=== PATIENT | male | born 1955 | race American Indian/Alaskan Native ===

== ENCOUNTER 2018-03-16 18:22 | Inpatient (IN) | payer MEDICARE, MEDICAID ==
[2018-03-16 18:22] VITALS: BMI 26.6
--- NOTE | 2018-03-16 19:08 | C.PDOC ---
History Of Present Illness Patient seen today due to suicidal ideation for the past 2 days. Also with Hx of COPD , complainin of SOB. Denies any chest pain. Chief Complaint (Nursing): Psychiatric Evaluation History Per: Patient History/Exam Limitations: no limitations Onset/Duration Of Symptoms: Days Current Symptoms Are (Timing): Still Present Suicide/Self Injury Attempted (Context): None Pain Scale Rating Of: 0 Associated Symptoms: Suicidal Thoughts. denies: Anxiety, Agitation, Suicidal Plan Involuntary Hold By: None Recent travel outside of the [place]: No Past Medical History Vital Signs: Last Vital Signs Temp 98.1 F 03/16/18 18:36 Pulse 113 H 03/16/18 18:36 Resp 20 03/16/18 18:36 BP 135/86 03/16/18 18:36 Pulse Ox 95 03/16/18 21:12 - Medical History PMH: Anxiety, Arthritis, Asthma, Back Problems, Bronchitis, COPD, Diabetes (w/ Neuropathy), Emphysema, Hepatitis (C), HIV, HTN, Hypercholesterolemia, Hyperlipidemia, Pancreatitis, Pneumonia, Sleep Apnea Denies: Chronic Kidney Disease - [facility] Procedures ASSISTANCE WITH RESPIRATORY VENTILATION, 24-96 HRS, CPAP (01/02/17) CENTRAL VENOUS CATHETER PLACEMENT WITH GUIDANCE (10/28/14) INFLUENZA VACCINATION (09/05/14) INSERTION OF INFUSION DEV INTO SUP VENA CAVA, PERC APPROACH (09/15/16) INTRODUCE OF OTH THERAP SUBST INTO RESP TRACT, VIA OPENING (01/13/18) INTRODUCTION OF SERUM/TOX/VACCINE INTO MUSCLE, PERC APPROACH (09/15/16) SPINAL TAP (02/05/15) VACCINATION NEC (09/21/14) Family History: States: Unknown Family Hx - Social History Hx Tobacco Use: Yes Hx Alcohol Use: No Hx Substance Use: Yes - Immunization History Hx Tetanus Toxoid Vaccination: No Hx Influenza Vaccination: Yes (2016) Hx Pneumococcal Vaccination: Yes (10/2017) Review Of Systems Constitutional: Negative for: Fever, Chills, Weakness Eyes: Negative for: Pain, Vision Change ENT: Negative for: Ear Pain, Ear Discharge, Nose Pain, Nose Discharge Cardiovascular: Negative for: Chest Pain, Palpitations, Orthopnea, Paroxysmal Noc. Dyspnea, Edema Respiratory: Positive for: Cough, Shortness of Breath, SOB with Excertion. Negative for: Hemoptysis, Pleuritic Pain, Sputum Gastrointestinal: Negative for: Nausea, Vomiting, Abdominal Pain Genitourinary: Negative for: Dysuria, Frequency Musculoskeletal: Negative for: Neck Pain, Shoulder Pain, Arm Pain Skin: Negative for: Rash, Lesions Neurological: Negative for: Weakness, Numbness, Incoordination, Change in Speech , Confusion, Seizures, Altered Mental Status Psych: Positive for: Suicidal ideation. Negative for: Anxiety Physical Exam - Physical Exam Appears: Non-toxic, No Acute Distress Skin: Normal Color, Warm, Dry, No Diaphoretic Head: Atraumatic, Normacephalic, Tenderness Nose: Normal Throat: Normal Neck: Normal Chest: Symmetrical, No Deformity, No Tenderness, No Ecchymosis, No Subcutaneous Emphysema Cardiovascular: Rhythm Regular Respiratory: Rhonchi (bilateral rhoncji, no rales.) Gastrointestinal/Abdominal: Normal Exam Back: Normal Inspection Male Genital: Normal Inspection Neurological/Psych: Normal Speech, Normal Cognition, Other (suicidal ideation.,) ED Course And Treatment - Laboratory Results Result Diagrams: 03/16/18 19:42 03/16/18 20:19 ECG: Interpreted By Me, Viewed By Me ECG Rhythm: Sinus Tachycardia ECG Interpretation: No Acute Changes Interpretation Of ECG: Sinus tachycardia, possible AMBAR, no acute change, borderline tracings. Rate From EC O2 Sat by Pulse Oximetry: 95 Pulse Ox Interpretation: Normal - Radiology CXR: Interpreted by Me, Viewed By Me CXR Interpretation: Yes: No Acute Disease, Other (normal chest film). No: Infiltrates Disposition Discussed With : Rayne Graf Doctor Will See Patient In The: Hospital Counseled Patient/Family Regarding: Diagnosis - Disposition Referrals: Ольга Arellano [Medical Doctor] - Disposition: HOSPITALIZED Disposition Time: 21:18 Condition: STABLE Forms: [facility] (Vietnamese) - POA Present On Arrival: None - Clinical Impression Clinical Impression: Chronic obstructive lung disease, Suicidal ideations
[2018-03-16] MEDS ORDERED: Albuterol-Ipratrop 3 mg / 0.5 (3 ml) UD INH STA (19:14)
[2018-03-16] MEDS ORDERED: Albuterol-Ipratrop 3 mg / 0.5 (3 ml) UD ONE (19:23)
[2018-03-16 19:45] LABS: BASO % 0.1 % (0.0-2.0); EOS % 0.2 % (0.0-4.0); HEMOGLOBIN 11.8 g/dL (12.0-18.0); LYMPH # 0.7 K/uL (1.0-4.3); LYMPH % 4.9 % (20.0-40.0); MEAN CORPUSCULAR HEMOGLOBIN 27.4 pg (27.0-31.0); MEAN CORPUSCULAR HGB CONC 31.3 g/dL (33.0-37.0); MEAN PLATELET VOLUME 7.8 fL (7.2-11.7); MONO # 0.7 K/uL (0.0-0.8); MONO % 4.5 % (0.0-10.0); NEUT # 13.3 K/uL (1.8-7.0); NEUT % 90.3 % (50.0-75.0); NRBC % 0.1 % (0.0-2.0); PLATELET COUNT 281 K/uL (130-400); RBC 4.31 Mil/uL (4.40-5.90); RED CELL DISTRIBUTION WIDTH 16.1 % (11.5-14.5)
[2018-03-16 19:46] LABS: MEAN CELL VOLUME 87.6 fL (80.0-94.0); WHITE BLOOD COUNT 14.7 K/uL (4.8-10.8)
[2018-03-16 20:00] LABS: ALB/GLOB RATIO 1.2 (1.0-2.1); ALBUMIN 4.8 g/dL (3.5-5.0); ALT/SGPT 37 U/L (21-72); AST/SGOT 53 U/L (17-59); BLOOD UREA NITROGEN 22 mg/dL (9-20); GFR AFRICAN-AMERICAN > 60; GFR NON-AFRICAN AMERICAN > 60
[2018-03-16 20:43] LABS: ANISOCYTOSIS SLIGHT; BANDS 1 % (0-2); HYPOCHROMIC SLIGHT; LYMPHOCYTE 9 % (20-40); MONOCYTE 1 % (0-10); NEUTROPHIL 89 % (50-75); OVALOCYTES SLIGHT; PLATELET ESTIMATE NORMAL (NORMAL); POIKILOCYTOSIS SLIGHT; TOTAL CELLS COUNTED 100
[2018-03-16 20:47] LABS: ALB/GLOB RATIO 1.1 (1.0-2.1); ALBUMIN 2.3 g/dL (3.5-5.0); ALT/SGPT 33 U/L (21-72); AST/SGOT 19 U/L (17-59); BLOOD UREA NITROGEN 16 mg/dL (9-20); CALCIUM 6.2 mg/dl (8.6-10.4); GFR AFRICAN-AMERICAN > 60; GFR NON-AFRICAN AMERICAN > 60
[2018-03-16] MEDS ORDERED: Potassium Chloride 20 mEq/15 ml LIQ UD PO STA (20:53)
[2018-03-16] MEDS ORDERED: Potassium Chloride 20 mEq/15 ml LIQ UD ONE (21:07)
[2018-03-16] MEDS ORDERED: Albuterol HFA 90 mcg/actuation (8 g) IH PRN (21:28)
[2018-03-16 22:07] LABS: ABG ALLEN TEST POS; ARTERIAL BLOOD GAS HCO3 27.3 mmol/L (21-28); ARTERIAL BLOOD GAS HEMOGLOBIN 9.8 g/dL (11.7-17.4); ARTERIAL BLOOD GAS PCO2 47 mm/Hg (35-45); ARTERIAL BLOOD GAS PH 7.39 (7.35-7.45); ARTERIAL BLOOD GAS PO2 86 mm/Hg (80-100); ARTERIAL BLOOD GAS TCO2 29.9 mmol/L (22-28)
[2018-03-16] MEDS: MethylPREDNISolone 40 mg Vial IVP SCH (23:00)
[2018-03-16] MEDS: Azithromycin 500mg/250ML NS 500 MG/250 ML BAG IVPB SCH (23:09)
[2018-03-17] MEDS: Albuterol-Ipratrop 3 mg / 0.5 (3 ml) UD INH SCH ×4 (02:45→20:42)
[2018-03-17] MEDS: MethylPREDNISolone 40 mg Vial IVP SCH ×3 (06:04→21:56)
[2018-03-17 06:46] LABS: BASO % 0.1 % (0.0-2.0); HEMOGLOBIN 9.4 g/dL (12.0-18.0); LYMPH # 0.2 K/uL (1.0-4.3); LYMPH % 2.3 % (20.0-40.0); MEAN CORPUSCULAR HEMOGLOBIN 27.8 pg (27.0-31.0); MEAN CORPUSCULAR HGB CONC 31.5 g/dL (33.0-37.0); MEAN PLATELET VOLUME 8.1 fL (7.2-11.7); MONO # 0.2 K/uL (0.0-0.8); MONO % 2.4 % (0.0-10.0); NEUT # 6.8 K/uL (1.8-7.0); NEUT % 95.2 % (50.0-75.0); NRBC % 0.1 % (0.0-2.0); PLATELET COUNT 231 K/uL (130-400); RED CELL DISTRIBUTION WIDTH 16.2 % (11.5-14.5); WHITE BLOOD COUNT 7.2 K/uL (4.8-10.8)
[2018-03-17 08:16] LABS: ALB/GLOB RATIO 1.3 (1.0-2.1); ALBUMIN 3.5 g/dL (3.5-5.0); ALT/SGPT 28 U/L (21-72); AST/SGOT 22 U/L (17-59); BLOOD UREA NITROGEN 25 mg/dL (9-20); CALCIUM 8.7 mg/dl (8.6-10.4); GFR AFRICAN-AMERICAN > 60; GFR NON-AFRICAN AMERICAN > 60
--- NOTE | 2018-03-17 08:27 | RAD ---
Date of service: 03/16/2018 HISTORY: Detox/Psy COMPARISON: 02/11/2016. FINDINGS: LUNGS: The lungs are well inflated. There is linear atelectasis in the left lower lobe. No focal consolidation. PLEURA: No significant pleural effusion identified, no pneumothorax apparent. CARDIOVASCULAR: Normal. OSSEOUS STRUCTURES: No significant abnormalities. VISUALIZED UPPER ABDOMEN: Normal. OTHER FINDINGS: None. IMPRESSION: No active pulmonary disease.
[2018-03-17 09:54] LABS: ANISOCYTOSIS SLIGHT; BANDS 1 % (0-2); HYPOCHROMIC SLIGHT; LYMPHOCYTE 2 % (20-40); MONOCYTE 2 % (0-10); NEUTROPHIL 95 % (50-75); PLATELET ESTIMATE NORMAL (NORMAL); TOTAL CELLS COUNTED 100
[2018-03-17] MEDS ORDERED: Abacavir/Lamivudine 600 mg-300 mg Tab PO SCH (10:00)
[2018-03-17] MEDS ORDERED: Home Med 1 UNIT (Valsartan [Diovan] 1 TAB) PO SCH (10:00)
[2018-03-17] MEDS ORDERED: DEXTROMETHORPHAN PO SCH (10:00)
[2018-03-17] MEDS ORDERED: GUAIFENESIN PO SCH (10:00)
[2018-03-17] MEDS ORDERED: Home Med 1 UNIT (Budesonide/Formoterol Fumarate [Symbicort 160-4.5 Mcg Inhaler] 1 AER) IH SCH (10:00)
[2018-03-17] MEDS ORDERED: RALTEGRAVIR POTASSIUM 600 MG PO SCH (10:00)
[2018-03-17] MEDS: Pantoprazole 40 mg EC Tab PO SCH (10:03)
[2018-03-17] MEDS: Enoxaparin 40 mg Syringe SC SCH (10:51)
[2018-03-17] MEDS ORDERED: (Novolog) Insulin Aspart, Recombinant 100 u/ml 10 ml vial SC SCH ×2 (11:30→22:00)
--- NOTE | 2018-03-17 11:41 | PCM.PSYCH ---
Initial Psychiatric Evaluation - Initial Psychiatric Evaluation Type of Admission: Voluntary Legal Status: Capacity Chief Complaint (in patient's own words): "I am fine" History of Present Illness and Precipitating Events: Patient came with Hx of COPD , complaining of SOB. Denies any chest pain. Psych was consulted due to suicidal ideation for the past 2 days. Patient has a history of anxiety presented to the ED with SOB and suicidal ideation. The patient states that when he came in yesterday he was under a lot of stress because of his health and he had just been discharged from [facility]. He states that he was feeling frustrated and had not slept well for the last few days however he is not depressed. The patient denies any suicidal ideation currently. He states that he has no pscyhiatric conditions except anxiety for which he takes Xanax at home occasionally. Past medical history: HIV, COPD, DM, HTN Past social history: former smoker of 50 years Current Medications: Active Medications Generic Name Dose Route Start Last Admin Trade Name Freq PRN Reason Stop Dose Admin Abacavir Sulfate 300 mg 03/17/18 10:03/17/18 11:10 Ziagen PO Not Given BID LAURA Protocol Abacavir/Lamivudine 1 tab 03/17/18 10:00 03/17/18 10:50 Epzicom PO 1 tab DAILY LAURA Administration Protocol Albuterol 1 puff 03/16/18 21:28 Ventolin Hfa 90 Mcg/Actuation (8 G) IH PRN PRN Shortness of Breath Albuterol/Ipratropium 3 ml 03/17/18 02:00 03/17/18 07:35 Duoneb 3 Mg/0.5 Mg (3 Ml) Ud INH 3 ml RQ6 LAURA Administration Alprazolam 0.25 mg 03/17/18 10:00 03/17/18 10:03 Xanax PO 03/24/18 10:01 0.25 mg TID LAURA Administration Amlodipine Besylate 5 mg 03/17/18 10:03/17/18 11:10 Norvasc PO Not Given DAILY LAURA Enoxaparin Sodium 40 mg 03/17/18 10:00 03/17/18 10:51 Lovenox SC Not Given DAILY LAURA Furosemide 20 mg 03/17/18 10:00 03/17/18 11:10 Lasix PO Not Given DAILY LAURA Gabapentin 300 mg 03/17/18 10:00 03/17/18 10:03 Neurontin PO 300 mg TID LAURA Administration Home Med 1 aer 03/17/18 10:00 Budesonide/Formoterol Fumarate [Symbicort 160-4.5 Mcg Inhaler] IH BID LAURA Home Med 1 tab 03/17/18 10:00 Guaifenesin/Dextromethorphan [Mucinex-Dm 600-30 Mg] PO BID LAURA Ceftriaxone Sodium 1 gm/ 100 mls @ 100 mls/hr 03/17/18 10:00 03/17/18 10:55 Sodium Chloride IVPB 100 mls/hr DAILY LAURA Administration Protocol Azithromycin 500 mg in 250 mls @ 167 mls/hr 03/16/18 21:45 03/16/18 23:09 Zithromax 500mg In Ns Addvantage IVPB 167 mls/hr Q24H LAURA Administration Protocol Insulin Aspart 0 unit 03/17/18 11:30 Novolog SC ACHS LAURA Protocol Losartan Potassium 25 mg 03/18/18 10:00 Cozaar PO DAILY LAURA Methylprednisolone 40 mg 03/16/18 21:45 03/17/18 06:04 Solu-Medrol IVP 40 mg Q8H LAURA Administration Montelukast Sodium 10 mg 03/16/18 22:00 03/16/18 23:00 Singulair PO 10 mg HS LAURA Administration Pantoprazole Sodium 40 mg 03/17/18 10:00 03/17/18 10:03 Protonix Ec Tab PO 40 mg DAILY LAURA Administration Raltegravir 1,200 mg 03/17/18 10:00 03/17/18 11:09 Isentress PO Not Given DAILY LAURA Protocol Spironolactone 25 mg 03/17/18 10:00 03/17/18 10:03 Aldactone PO 25 mg DAILY LAURA Administration Past Psychiatric History - Past Psychiatric History Previous Treatment History: None Pertinent Medical Hx (Current Medical&Sleep Prob, Allergies): Allergies Allergy/AdvReac Type Severity Reaction Status Date / Time No Known Allergies Allergy Verified 03/14/18 13:55 Abacavir [Ziagen] 300 mg PO BID #10 tab 12/08/16 Famotidine [Pepcid] 20 mg PO DAILY #5 tab 12/08/16 Furosemide [Lasix] 20 mg PO DAILY #5 tab 12/08/16 Spironolactone [Aldactone] 25 mg PO DAILY #7 tab 12/08/16 amLODIPine [Norvasc] 5 mg PO DAILY #7 tab 12/08/16 Valsartan [Diovan] 1 tab PO DAILY 01/01/17 Gabapentin [Neurontin] 300 mg PO TID 10/26/17 ALPRAZolam [Xanax] 0.25 mg PO TID #8 tab 10/28/17 Albuterol HFA [Ventolin HFA 90 mcg/actuation (8 g)] 1 puff IH PRN PRN #1 inhaler 10/28/17 Budesonide/Formoterol Fumarate [Symbicort 160-4.5 Mcg Inhaler] 1 aer IH BID #1 aer 10/28/17 Montelukast [Singulair] 10 mg PO HS #30 tab 10/28/17 guaiFENesin/Dextromethorphan [Mucinex-DM 600-30 mg] 1 tab PO BID tab 01/14/18 Raltegravir Potassium [Isentress Hd] 600 mg PO DAILY 03/12/18 Azithromycin [Zithromax] 250 mg PO DAILY 4 Days tab 03/13/18 Methylprednisolone [Medrol Dose Pack (21 tabs)] See Taper PO DAILY #21 mg levoFLOXacin [Levaquin] 750 mg PO DAILY 4 Days tab 03/16/18 Mental Status Examination - Personal Presentation Personal Presentation: Looks stated age - Affect Affect: Constricted, Depressed - Motor Activity Motor Activity: Calm - Reliability in Providing Information Reliability in Providing Information: Fair - Speech Speech: Organized - Mood Mood: Depressed - Formal Thought Process Formal Thought Process: No Impairment - Obsessions/Compulsions Obsessions: No Compulsions: No - Cognitive Functions Orientation: Person, Place, Situation, Time Sensorium: Alert Attention/Concentration: Attentive Abstract Thinking: [place] Estimate of Intelligence: Below average Judgement: Imparied, as evidence by: Poor judgement, Intact, as evidence by: Insight regarding need for hospitalization - Risk Risk: Diminished functioning - Limitations Limitations: Living alone DSM 5 DX - DSM 5 DSM 5 Diagnosis: Major depressive disorder recurrent moderate - Recommended/Plan of Treatment Treatment Recommendations and Plan of Treatment: Major depressive disorder recurrent moderate Continue Xanax 0.25g TID Monitor for suicidal ideation Encourage outpatient follow up
--- NOTE | 2018-03-17 12:35 | CP.PCM.CON ---
History of Present Illness - History of Present Illness History of Present Illness: Shortness of breath and Suicidal Ideation Pulmonology consulted for COPD Exacerbation HPI: 62 year old male male with past medical history of HIV on HAART, COPD, DM, HTN, multiple prior hospitalizations for COPD exarcebation. Patient has a history of signing out AMA. Patient signed out AMA yesterday at around noon. Patient presented to the ED with complaint of SOB and suicidal ideation around 5 pm. Patient was seen and examined this morning at bedside. Patient was found sitting comfortably in no acute distress eating breakfast. Patient reports that he has a non-productive cough, shortness of breath and chest tightness. Patient is afebrile. Patient's CXR results showed no active pulmonary disease. PMH: HIV, COPD, DM, HTN, Pancreatitis PSH: recreational drug use, former smoker of 50 pack year history Meds: Abacavir Sulfate 300 mg PO BID Avacavir/ Lamivudine 1 tab PO Daily Albuterol 1 puff IH PRN Albuterol/ Ipratropium 3 ml INH RQ6 LAURA Alprazolam 0.25 mg PO TID Amlodipine Besylate 5 mg PO Daily Azythromycin 500 mg in 250 mls @ 167 mls/ hr IVPB Q24H Ceftriaxone Sodium 1 gm in Sodium Chloride 100 mls @100 mls/ hr IVPB Daily Enoxaparin Sodium 40 mg SC daily Furosemide 20 mg PO Daily Gabapentin 300 mg PO TID Losartan Potassium 25 mg PO Daily Methylprednisolone 40 mg IVP Q8H Montelukast Sodium 10 mg PO HS Pantoprazole Sodium 40 mg PO Daily Raltegravir 1200 mg PO Daily Spirolactone 25 mg PO Daily ROS: Constitutional: Patient denies fever and chills. Cardiovascular: Patient reports chest tightness. Patient denies palpitations. Respiratory: Patient reports shortness of breath and non -productive cough. Patient denies snoring, daytime somnolence. Gastrointestinal: Patient denies nausea, vomiting, diarrhea. Neurological: Headache, AAO X 3, normal speech Physical Exam HEENT: Atraumatic, normocephalic, mucuous membranes moist Repiratory: Bilateral wheezing and rhonchi. Negative for rales. No use of accessory muscles. Cardiovascular: +S1/ S2, regular rate and rhythm GI: Normal bowel sounds in all 4 quadrants, no tenderness, no distention Extremities: No LE edema Neurological: Alert, awake, oriented X3 Assessment: 62 year old male male with past medical history of HIV on HAART , COPD, DM, HTN with findings consistent with COPD Exacerbation. 1. COPD Exacerbation Status: Chronic -IV steroids, IV antibiotics - Albuterol/ Ipratropium 3 ml INH RQ6 LAURA - Alprazolam 0.25 mg PO TID - Montelukast Sodium 10 mg PO HS 2. HIV Status: Chronic - Abacavir Sulfate 300 mg PO BID - Avacavir/ Lamivudine 1 tab PO Daily - Raltegravir 1200 mg PO Daily 3. HTN Status: Chronic - Losartan Potassium 25 mg PO Daily - Spirolactone 25 mg PO Daily Past Patient History - Infectious Disease Hx of Infectious Diseases: None - Tetanus Immunizations Tetanus Immunization: Unknown - Past Medical History & Family History Past Medical History?: Yes - Past Social History Smoking Status: Former Smoker - CARDIAC Hx Cardiac Disorders: Yes Hx Hypercholesterolemia: Yes Hx Hypertension: Yes - PULMONARY Hx Respiratory Disorders: Yes Hx Asthma: Yes Hx Bronchitis: Yes Hx Chronic Obstructive Pulmonary Disease (COPD): Yes Hx Emphysema: Yes Hx Pneumonia: Yes Hx Sleep Apnea: Yes - NEUROLOGICAL Hx Neurological Disorder: No HX Cerebrovascular Accident: No Hx Seizures: No - HEENT Hx HEENT Problems: No - RENAL Hx Chronic Kidney Disease: No - ENDOCRINE/METABOLIC Hx Endocrine Disorders: Yes Hx Diabetes Mellitus Type 2: Yes - HEMATOLOGICAL/ONCOLOGICAL Hx Blood Disorders: Yes Hx Human Immunodeficiency Virus (HIV): Yes - INTEGUMENTARY Hx Dermatological Problems: No - MUSCULOSKELETAL/RHEUMATOLOGICAL Hx Musculoskeletal Disorders: Yes Hx Arthritis: Yes Hx Falls: No - GASTROINTESTINAL Hx Gastrointestinal Disorders: Yes Hx Pancreatitis: Yes - GENITOURINARY/GYNECOLOGICAL Hx Genitourinary Disorders: No Hx Sexually Transmitted Disorders: No - PSYCHIATRIC Hx Psychophysiologic Disorder: Yes Hx Anxiety: Yes Hx Substance Use: Yes - SURGICAL HISTORY Hx Surgeries: Yes Hx Orthopedic Surgery: Yes (RT KNEE) Other/Comment: comestic surgery to face post getting kicked in face by horse - ANESTHESIA Hx Anesthesia: Yes Hx Anesthesia Reactions: No Hx Malignant Hyperthermia: No Meds Allergies/Adverse Reactions: Allergies Allergy/AdvReac Type Severity Reaction Status Date / Time No Known Allergies Allergy Verified 03/14/18 13:55 - Medications Medications: Current Medications Abacavir Sulfate (Ziagen) 300 mg PO BID LAURA PRN Reason: Protocol Last Admin: 03/17/18 11:10 Dose: Not Given Abacavir/Lamivudine (Epzicom) 1 tab PO DAILY LAURA PRN Reason: Protocol Last Admin: 03/17/18 10:50 Dose: 1 tab Albuterol (Ventolin Hfa 90 Mcg/Actuation (8 G)) 1 puff IH PRN PRN PRN Reason: Shortness of Breath Albuterol/Ipratropium (Duoneb 3 Mg/0.5 Mg (3 Ml) Ud) 3 ml INH RQ6 [facility] Last Admin: 03/17/18 07:35 Dose: 3 ml Alprazolam (Xanax) 0.25 mg PO TID [facility] Stop: 03/24/18 10:01 Last Admin: 03/17/18 10:03 Dose: 0.25 mg Amlodipine Besylate (Norvasc) 5 mg PO DAILY [facility] Last Admin: 03/17/18 11:10 Dose: Not Given Enoxaparin Sodium (Lovenox) 40 mg SC DAILY [facility] Last Admin: 03/17/18 10:51 Dose: Not Given Furosemide (Lasix) 20 mg PO DAILY [facility] Last Admin: 03/17/18 11:10 Dose: Not Given Gabapentin (Neurontin) 300 mg PO TID [facility] Last Admin: 03/17/18 10:03 Dose: 300 mg Home Med (Budesonide/Formoterol Fumarate [Symbicort 160-4.5 Mcg Inhaler]) 1 aer IH BID [facility] Home Med (Guaifenesin/Dextromethorphan [Mucinex-Dm 600-30 Mg]) 1 tab PO BID [facility] Ceftriaxone Sodium 1 gm/ (Sodium Chloride) 100 mls @ 100 mls/hr IVPB DAILY [facility] PRN Reason: Protocol Last Admin: 03/17/18 10:55 Dose: 100 mls/hr Azithromycin (Zithromax 500mg In Ns Addvantage) 500 mg in 250 mls @ 167 mls/hr IVPB Q24H [facility]URA PRN Reason: Protocol Last Admin: 03/16/18 23:09 Dose: 167 mls/hr Insulin Aspart (Novolog) 0 unit SC ACHS LAURA PRN Reason: Protocol Last Admin: 03/17/18 12:11 Dose: 6 units Losartan Potassium (Cozaar) 25 mg PO DAILY [facility] Methylprednisolone (Solu-Medrol) 40 mg IVP Q8H [facility] Last Admin: 03/17/18 06:04 Dose: 40 mg Montelukast Sodium (Singulair) 10 mg PO HS [facility] Last Admin: 03/16/18 23:00 Dose: 10 mg Pantoprazole Sodium (Protonix Ec Tab) 40 mg PO DAILY [facility] Last Admin: 03/17/18 10:03 Dose: 40 mg Raltegravir (Isentress) 1,200 mg PO DAILY [facility] PRN Reason: Protocol Last Admin: 03/17/18 11:09 Dose: Not Given Sertraline HCl (Zoloft) 50 mg PO DAILY [facility] Spironolactone (Aldactone) 25 mg PO DAILY [facility] Last Admin: 03/17/18 10:03 Dose: 25 mg Results - Vital Signs Recent Vital Signs: Last Vital Signs Temp 98 F 03/17/18 08:21 Pulse 77 03/17/18 08:21 Resp 18 03/17/18 08:21 BP 153/89 H 03/17/18 08:21 Pulse Ox 100 03/17/18 08:21 - Labs Result Diagrams: 03/17/18 06:38 03/17/18 06:38 Labs: Laboratory Results - last 24 hr 03/16/18 03/16/18 03/16/18 19:42 19:42 20:19 WBC 14.7 H D RBC 4.31 L Hgb 11.8 L Hct 37.8 MCV 87.6 D MCH 27.4 MCHC 31.3 L RDW 16.1 H Plt Count 281 MPV 7.8 Neut % (Auto) 90.3 H Lymph % (Auto) 4.9 L [place] % (Auto) 4.5 Eos % (Auto) 0.2 Baso % (Auto) 0.1 Neut # (Auto) 13.3 H Lymph # (Auto) 0.7 L [place] # (Auto) 0.7 Eos # (Auto) 0.0 Baso # (Auto) 0.0 Neutrophils % (Manual) 89 H Band Neutrophils % 1 Lymphocytes % (Manual) 9 L Monocytes % (Manual) 1 Platelet Estimate Normal Hypochromasia (manual) Slight Poikilocytosis (manual Slight Anisocytosis (manual) Slight Ovalocytes Slight Puncture Site pCO2 pO2 HCO3 ABG pH ABG Total CO2 ABG O2 Saturation ABG Base Excess ABG Hemoglobin ABG Carboxyhemoglobin POC ABG HHb (Measured) ABG Methemoglobin Narinder Test Hgb O2 Saturation Liter Flow Sodium 144 144 Potassium 6.2 H* D 2.9 L Chloride 104 118 H Carbon Dioxide 25 18 L Anion Gap 21 H 11 BUN 22 H 16 Creatinine 1.0 0.7 L Est GFR ( Amer) > 60 > 60 Est GFR (Non-Af Amer) > 60 > 60 POC Glucose (mg/dL) Random Glucose 131 H 96 Calcium 10.0 6.2 L Phosphorus Magnesium Total Bilirubin 1.2 0.3 AST 53 19 ALT 37 33 Alkaline Phosphatase 64 33 L D Total Protein 8.9 H 4.4 L Albumin 4.8 2.3 L D Globulin 4.1 H 2.1 L Albumin/Globulin Ratio 1.2 1.1 Alcohol, Quantitative < 10 03/16/18 03/17/18 03/17/18 22:04 06:29 06:38 WBC 7.2 D RBC 3.40 L Hgb 9.4 L D Hct 30.0 L MCV 88.0 MCH 27.8 MCHC 31.5 L RDW 16.2 H Plt Count 231 MPV 8.1 Neut % (Auto) 95.2 H Lymph % (Auto) 2.3 L [place] % (Auto) 2.4 Eos % (Auto) 0.0 Baso % (Auto) 0.1 Neut # (Auto) 6.8 Lymph # (Auto) 0.2 L [place] # (Auto) 0.2 Eos # (Auto) 0.0 Baso # (Auto) 0.0 Neutrophils % (Manual) 95 H Band Neutrophils % 1 Lymphocytes % (Manual) 2 L Monocytes % (Manual) 2 Platelet Estimate Normal Hypochromasia (manual) Slight Poikilocytosis (manual Anisocytosis (manual) Slight Ovalocytes Puncture Site Rra pCO2 47 H pO2 86 HCO3 27.3 ABG pH 7.39 ABG Total CO2 29.9 H ABG O2 Saturation 99.0 H ABG Base Excess 3.0 ABG Hemoglobin 9.8 L ABG Carboxyhemoglobin 1.8 H POC ABG HHb (Measured) 1.0 ABG Methemoglobin 1.3 Narinder Test Pos Hgb O2 Saturation 95.9 Liter Flow 2.0 Sodium Potassium Chloride Carbon Dioxide Anion Gap BUN Creatinine Est GFR ( Amer) Est GFR (Non-Af Amer) POC Glucose (mg/dL) 470 H* Random Glucose Calcium Phosphorus Magnesium Total Bilirubin AST ALT Alkaline Phosphatase Total Protein Albumin Globulin Albumin/Globulin Ratio Alcohol, Quantitative 03/17/18 03/17/18 06:38 11:24 WBC RBC Hgb Hct MCV MCH MCHC RDW Plt Count MPV Neut % (Auto) Lymph % (Auto) [place] % (Auto) Eos % (Auto) Baso % (Auto) Neut # (Auto) Lymph # (Auto) [place] # (Auto) Eos # (Auto) Baso # (Auto) Neutrophils % (Manual) Band Neutrophils % Lymphocytes % (Manual) Monocytes % (Manual) Platelet Estimate Hypochromasia (manual) Poikilocytosis (manual Anisocytosis (manual) Ovalocytes Puncture Site pCO2 pO2 HCO3 ABG pH ABG Total CO2 ABG O2 Saturation ABG Base Excess ABG Hemoglobin ABG Carboxyhemoglobin POC ABG HHb (Measured) ABG Methemoglobin Narinder Test Hgb O2 Saturation Liter Flow Sodium 139 Potassium 4.6 Chloride 105 Carbon Dioxide 25 Anion Gap 14 BUN 25 H Creatinine 1.0 Est GFR ( Amer) > 60 Est GFR (Non-Af Amer) > 60 POC Glucose (mg/dL) 442 H* Random Glucose 468 H* D Calcium 8.7 Phosphorus 3.6 Magnesium 2.2 Total Bilirubin 0.4 AST 22 ALT 28 Alkaline Phosphatase 67 Total Protein 6.1 L Albumin 3.5 D Globulin 2.6 Albumin/Globulin Ratio 1.3 Alcohol, Quantitative
[2018-03-17] MEDS ORDERED: guaiFENesin DM 200 mg-20 mg/10 ml UD PO PRN (12:45)
[2018-03-17 14:39] LABS: CK-MB 1.17 ng/mL (0.0-3.38)
--- NOTE | 2018-03-17 16:14 | CP.PCM.CON ---
History of Present Illness - History of Present Illness History of Present Illness: 62 year old male male with past medical history of HIV on HAART , COPD, DM, HTN, multiple prior hospitalizations for COPD exarcebation. . Patient presented to the ED with complaint of SOB and suicidal ideation around 5 pm. . Patient reports that he has a non-productive cough, shortness of breath and chest tightness. referred for ID eval PMH: HIV, COPD, DM, HTN, Pancreatitis PSH: recreational drug use, former smoker of 50 pack year history Review of Systems - Review of Systems All systems: reviewed and no additional remarkable complaints except - Constitutional Constitutional: As Per HPI - EENT Eyes: absent: As Per HPI, Blind Spots, Blurred Vision, Change in Vision, Decreased Night Vision, Diplopia, Discharge, Dry Eye, Exophthalmos, Floaters, Irritation, Itchy Eyes, Loss of Peripheral Vision, Pain, Photophobia, Requires Corrective Lenses, Sees Flashes, Spots in Vision, Tunnel Vision, Other Visual Disturbances, Loss of Vision, Other Ears: absent: As Per HPI, Decreased Hearing, Ear Discharge, Ear Pain, Tinnitus, Abnormal Hearing, Disequilibrium, Dizziness, Other Nose/Mouth/Throat: absent: As Per HPI, Epistaxis, Nasal Congestion, Nasal Discharge, Nasal Obstruction, Nasal Trauma, Nose Pain, Post Nasal Drip, Sinus Pain, Sinus Pressure, Bleeding Gums, Change in Voice, Dental Pain, Dry Mouth, Dysphagia, Halitosis, Hoarsness, Lip Swelling, Mouth Lesions, Mouth Pain, Odynophagia, Sore Throat, Throat Swelling, Tongue Swelling, Facial Pain, Neck Pain, Neck Mass, Other - Cardiovascular Cardiovascular: As Per HPI - Respiratory Respiratory: As Per HPI, Cough, Dyspnea. absent: Hemoptysis - Gastrointestinal Gastrointestinal: As Per HPI - Genitourinary Genitourinary: absent: As Per HPI, Change in Urinary Stream, Difficulty Urinating, Dysuria, Flank Pain, Hematuria, Pyuria, Nocturia, Urinary Incontinence, Urinary Frequency, Urinary Hesitance, Urinary Urgency, Voiding Freq/Small Amts, Freq UTI, Hx Renal/Bladder Calculi, Hx /Renal Surgery, Bladder Distension, Other - Musculoskeletal Musculoskeletal: absent: As Per HPI, Abnormal Gait, Arthralgias, Atrophy, Back Pain, Deformity, Joint Swelling, Limited Range of Motion, Loss of Height, Muscle Cramps, Muscle Weakness, Myalgias, Neck Pain, Numbness, Radiating Pain into Limb, Stiffness, Tingling, Other - Integumentary Integumentary: absent: As Per HPI, Acne, Alopecia, Bleeding Lesions, Change in Hair, Change in Nails, Change in Pigmentation, Changing Lesions, Dry Skin, Erythema, Furuncle, Hirsutism, Lesions, New Lesions, Non-Healing Lesions, Photosensitivity, Pruritus, Rash, Skin Pain, Skin Ulcer, Sores, Striae, Swelling , Unusual Bruising, Wounds, Jaundice, Other - Neurological Neurological: absent: As Per HPI, Abnormal Gait, Abnormal Hearing, Abnormal Movements, Abnormal Speech, Behavioral Changes, Burning Sensations, Confusion, Convulsions, Disequilibrium, Dizziness, Numbness, Focal Weakness, Frequent Falls , Headaches, Lack of Coordination, Loss of Vision, Memory Loss, Paresthesias, Radicular Pain, Restless Legs, Sensory Deficit, Syncope, Tingling, Tremor, Vertigo, Weakness, Other Visual Disturbances, Other - Psychiatric Psychiatric: absent: As Per HPI, Abnormal Sleep Pattern, Anhedonia, Anxiety, Auditory Hallucinations, Behavioral Changes, Change in Appetite, Change in Libido, Confusion, Depression, Difficulty Concentrating, Hallucinations, Homicidal Ideation, Hopelessness, Irritability, Memory Loss, Mood Swings, Panic Attacks, Paranoia, Suicidal Ideation, Visual Hallucinations, Tactile Hallucinations, Other - Endocrine Endocrine: absent: As Per HPI, Change in Body Appearance, Change in Libido, Cold Intolorance, Deepening of Voice, Excessive Sweating, Fatigue, Flushing, Heat Intolorance, Increase in Ring/Shoe/Hat Size, Palpitations, Polydipsia, Polyphagia, Polyuria, Other - Hematologic/Lymphatic Hematologic: absent: As Per HPI, Easy Bleeding, Easy Bruising, Lymphadenopathy, Other Past Patient History - Infectious Disease Hx of Infectious Diseases: None - Tetanus Immunizations Tetanus Immunization: Unknown - Past Medical History & Family History Past Medical History?: Yes - Past Social History Smoking Status: Former Smoker - CARDIAC Hx Cardiac Disorders: Yes Hx Hypercholesterolemia: Yes Hx Hypertension: Yes - PULMONARY Hx Respiratory Disorders: Yes Hx Asthma: Yes Hx Bronchitis: Yes Hx Chronic Obstructive Pulmonary Disease (COPD): Yes Hx Emphysema: Yes Hx Pneumonia: Yes Hx Sleep Apnea: Yes - NEUROLOGICAL Hx Neurological Disorder: No HX Cerebrovascular Accident: No Hx Seizures: No - HEENT Hx HEENT Problems: No - RENAL Hx Chronic Kidney Disease: No - ENDOCRINE/METABOLIC Hx Endocrine Disorders: Yes Hx Diabetes Mellitus Type 2: Yes - HEMATOLOGICAL/ONCOLOGICAL Hx Blood Disorders: Yes Hx Human Immunodeficiency Virus (HIV): Yes - INTEGUMENTARY Hx Dermatological Problems: No - MUSCULOSKELETAL/RHEUMATOLOGICAL Hx Musculoskeletal Disorders: Yes Hx Arthritis: Yes Hx Falls: No - GASTROINTESTINAL Hx Gastrointestinal Disorders: Yes Hx Pancreatitis: Yes - GENITOURINARY/GYNECOLOGICAL Hx Genitourinary Disorders: No Hx Sexually Transmitted Disorders: No - PSYCHIATRIC Hx Psychophysiologic Disorder: Yes Hx Anxiety: Yes Hx Substance Use: Yes - SURGICAL HISTORY Hx Surgeries: Yes Hx Orthopedic Surgery: Yes (RT KNEE) Other/Comment: comestic surgery to face post getting kicked in face by horse - ANESTHESIA Hx Anesthesia: Yes Hx Anesthesia Reactions: No Hx Malignant Hyperthermia: No Meds Allergies/Adverse Reactions: Allergies Allergy/AdvReac Type Severity Reaction Status Date / Time No Known Allergies Allergy Verified 03/14/18 13:55 - Medications Medications: Current Medications Abacavir Sulfate (Ziagen) 300 mg PO BID [facility] PRN Reason: Protocol Last Admin: 03/17/18 11:10 Dose: Not Given Albuterol (Ventolin Hfa 90 Mcg/Actuation (8 G)) 1 puff IH PRN PRN PRN Reason: Shortness of Breath Albuterol/Ipratropium (Duoneb 3 Mg/0.5 Mg (3 Ml) Ud) 3 ml INH RQ6 [facility] Last Admin: 03/17/18 13:52 Dose: 3 ml Alprazolam (Xanax) 0.25 mg PO TID [facility] Stop: 03/24/18 10:01 Last Admin: 03/17/18 14:29 Dose: 0.25 mg Amlodipine Besylate (Norvasc) 5 mg PO DAILY [facility] Last Admin: 03/17/18 11:10 Dose: Not Given Enoxaparin Sodium (Lovenox) 40 mg SC DAILY [facility] Last Admin: 03/17/18 10:51 Dose: Not Given Furosemide (Lasix) 20 mg PO DAILY [facility] Last Admin: 03/17/18 11:10 Dose: Not Given Gabapentin (Neurontin) 300 mg PO TID [facility] Last Admin: 03/17/18 14:29 Dose: 300 mg Guaifenesin/Dextromethorphan (Robitussin Dm) 10 ml PO Q4H PRN PRN Reason: Cough Home Med (Budesonide/Formoterol Fumarate [Symbicort 160-4.5 Mcg Inhaler]) 1 aer IH BID [facility] Ceftriaxone Sodium 1 gm/ (Sodium Chloride) 100 mls @ 100 mls/hr IVPB DAILY [facility] PRN Reason: Protocol Last Admin: 03/17/18 10:55 Dose: 100 mls/hr Azithromycin (Zithromax 500mg In Ns Addvantage) 500 mg in 250 mls @ 167 mls/hr IVPB Q24H [facility] PRN Reason: Protocol Last Admin: 03/16/18 23:09 Dose: 167 mls/hr Insulin Aspart (Novolog) 20 unit SC HS [facility] Insulin Aspart (Novolog) 0 unit SC ACHS [facility] PRN Reason: Protocol Insulin Detemir (Levemir) 20 unit SC HS [facility] Losartan Potassium (Cozaar) 25 mg PO DAILY [facility] Methylprednisolone (Solu-Medrol) 40 mg IVP Q8H [facility] Last Admin: 03/17/18 14:29 Dose: 40 mg Montelukast Sodium (Singulair) 10 mg PO HS [facility] Last Admin: 03/16/18 23:00 Dose: 10 mg Pantoprazole Sodium (Protonix Ec Tab) 40 mg PO DAILY [facility] Last Admin: 03/17/18 10:03 Dose: 40 mg Raltegravir (Isentress) 400 mg PO BID [facility] PRN Reason: Protocol Sertraline HCl (Zoloft) 50 mg PO DAILY [facility] Last Admin: 03/17/18 12:36 Dose: 50 mg Spironolactone (Aldactone) 25 mg PO DAILY [facility] Last Admin: 03/17/18 10:03 Dose: 25 mg Physical Exam - Constitutional Appears: Non-toxic, Chronically Ill - Head Exam Head Exam: NORMOCEPHALIC - Eye Exam Eye Exam: PERRL. absent: Scleral icterus - ENT Exam ENT Exam: Mucous Membranes Dry - Neck Exam Neck exam: Negative for: Lymphadenopathy - Respiratory Exam Respiratory Exam: Decreased Breath Sounds - Cardiovascular Exam Cardiovascular Exam: REGULAR RHYTHM, +S1, +S2 - GI/Abdominal Exam GI & Abdominal Exam: Diminished Bowel Sounds, Soft. absent: Tenderness - Rectal Exam Rectal Exam: Deferred - Exam Exam: NORMAL INSPECTION - Extremities Exam Extremities exam: Positive for: pedal pulses present. Negative for: calf tenderness, pedal edema, tenderness - Back Exam Back exam: absent: CVA tenderness (L), CVA tenderness (R) - Neurological Exam Neurological exam: Alert, CN II-XII Intact, Oriented x3, Reflexes Normal - Psychiatric Exam Psychiatric exam: Normal Mood - Skin Skin Exam: Dry, Intact Results - Vital Signs Recent Vital Signs: Last Vital Signs Temp 98 F 03/17/18 08:21 Pulse 77 03/17/18 08:21 Resp 18 03/17/18 08:21 BP 153/89 H 03/17/18 08:21 Pulse Ox 100 03/17/18 08:21 - Labs Result Diagrams: 03/17/18 06:38 03/17/18 06:38 Labs: Laboratory Results - last 24 hr 03/16/18 03/16/18 03/16/18 19:42 19:42 20:19 WBC 14.7 H D RBC 4.31 L Hgb 11.8 L Hct 37.8 MCV 87.6 D MCH 27.4 MCHC 31.3 L RDW 16.1 H Plt Count 281 MPV 7.8 Neut % (Auto) 90.3 H Lymph % (Auto) 4.9 L [place] % (Auto) 4.5 Eos % (Auto) 0.2 Baso % (Auto) 0.1 Neut # (Auto) 13.3 H Lymph # (Auto) 0.7 L [place] # (Auto) 0.7 Eos # (Auto) 0.0 Baso # (Auto) 0.0 Neutrophils % (Manual) 89 H Band Neutrophils % 1 Lymphocytes % (Manual) 9 L Monocytes % (Manual) 1 Platelet Estimate Normal Hypochromasia (manual) Slight Poikilocytosis (manual Slight Anisocytosis (manual) Slight Ovalocytes Slight Puncture Site pCO2 pO2 HCO3 ABG pH ABG Total CO2 ABG O2 Saturation ABG Base Excess ABG Hemoglobin ABG Carboxyhemoglobin POC ABG HHb (Measured) ABG Methemoglobin Narinder Test Hgb O2 Saturation Liter Flow Sodium 144 144 Potassium 6.2 H* D 2.9 L Chloride 104 118 H Carbon Dioxide 25 18 L Anion Gap 21 H 11 BUN 22 H 16 Creatinine 1.0 0.7 L Est GFR ( Amer) > 60 > 60 Est GFR (Non-Af Amer) > 60 > 60 POC Glucose (mg/dL) Random Glucose 131 H 96 Calcium 10.0 6.2 L Phosphorus Magnesium Total Bilirubin 1.2 0.3 AST 53 19 ALT 37 33 Alkaline Phosphatase 64 33 L D Total Creatine Kinase CK-MB (Mass) Troponin I Total Protein 8.9 H 4.4 L Albumin 4.8 2.3 L D Globulin 4.1 H 2.1 L Albumin/Globulin Ratio 1.2 1.1 Alcohol, Quantitative < 10 03/16/18 03/17/18 03/17/18 22:04 06:29 06:38 WBC 7.2 D RBC 3.40 L Hgb 9.4 L D Hct 30.0 L MCV 88.0 MCH 27.8 MCHC 31.5 L RDW 16.2 H Plt Count 231 MPV 8.1 Neut % (Auto) 95.2 H Lymph % (Auto) 2.3 L [place] % (Auto) 2.4 Eos % (Auto) 0.0 Baso % (Auto) 0.1 Neut # (Auto) 6.8 Lymph # (Auto) 0.2 L [place] # (Auto) 0.2 Eos # (Auto) 0.0 Baso # (Auto) 0.0 Neutrophils % (Manual) 95 H Band Neutrophils % 1 Lymphocytes % (Manual) 2 L Monocytes % (Manual) 2 Platelet Estimate Normal Hypochromasia (manual) Slight Poikilocytosis (manual Anisocytosis (manual) Slight Ovalocytes Puncture Site Rra pCO2 47 H pO2 86 HCO3 27.3 ABG pH 7.39 ABG Total CO2 29.9 H ABG O2 Saturation 99.0 H ABG Base Excess 3.0 ABG Hemoglobin 9.8 L ABG Carboxyhemoglobin 1.8 H POC ABG HHb (Measured) 1.0 ABG Methemoglobin 1.3 Narinder Test Pos Hgb O2 Saturation 95.9 Liter Flow 2.0 Sodium Potassium Chloride Carbon Dioxide Anion Gap BUN Creatinine Est GFR ( Amer) Est GFR (Non-Af Amer) POC Glucose (mg/dL) 470 H* Random Glucose Calcium Phosphorus Magnesium Total Bilirubin AST ALT Alkaline Phosphatase Total Creatine Kinase CK-MB (Mass) Troponin I Total Protein Albumin Globulin Albumin/Globulin Ratio Alcohol, Quantitative 03/17/18 03/17/18 03/17/18 06:38 11:24 12:35 WBC RBC Hgb Hct MCV MCH MCHC RDW Plt Count MPV Neut % (Auto) Lymph % (Auto) [place] % (Auto) Eos % (Auto) Baso % (Auto) Neut # (Auto) Lymph # (Auto) [place] # (Auto) Eos # (Auto) Baso # (Auto) Neutrophils % (Manual) Band Neutrophils % Lymphocytes % (Manual) Monocytes % (Manual) Platelet Estimate Hypochromasia (manual) Poikilocytosis (manual Anisocytosis (manual) Ovalocytes Puncture Site pCO2 pO2 HCO3 ABG pH ABG Total CO2 ABG O2 Saturation ABG Base Excess ABG Hemoglobin ABG Carboxyhemoglobin POC ABG HHb (Measured) ABG Methemoglobin Narinder Test Hgb O2 Saturation Liter Flow Sodium 139 Potassium 4.6 Chloride 105 Carbon Dioxide 25 Anion Gap 14 BUN 25 H Creatinine 1.0 Est GFR ( Amer) > 60 Est GFR (Non-Af Amer) > 60 POC Glucose (mg/dL) 442 H* 425 H* Random Glucose 468 H* D Calcium 8.7 Phosphorus 3.6 Magnesium 2.2 Total Bilirubin 0.4 AST 22 ALT 28 Alkaline Phosphatase 67 Total Creatine Kinase CK-MB (Mass) Troponin I Total Protein 6.1 L Albumin 3.5 D Globulin 2.6 Albumin/Globulin Ratio 1.3 Alcohol, Quantitative 03/17/18 14:01 WBC RBC Hgb Hct MCV MCH MCHC RDW Plt Count MPV Neut % (Auto) Lymph % (Auto) [place] % (Auto) Eos % (Auto) Baso % (Auto) Neut # (Auto) Lymph # (Auto) [place] # (Auto) Eos # (Auto) Baso # (Auto) Neutrophils % (Manual) Band Neutrophils % Lymphocytes % (Manual) Monocytes % (Manual) Platelet Estimate Hypochromasia (manual) Poikilocytosis (manual Anisocytosis (manual) Ovalocytes Puncture Site pCO2 pO2 HCO3 ABG pH ABG Total CO2 ABG O2 Saturation ABG Base Excess ABG Hemoglobin ABG Carboxyhemoglobin POC ABG HHb (Measured) ABG Methemoglobin Narinder Test Hgb O2 Saturation Liter Flow Sodium Potassium Chloride Carbon Dioxide Anion Gap BUN Creatinine Est GFR ( Amer) Est GFR (Non-Af Amer) POC Glucose (mg/dL) Random Glucose Calcium Phosphorus Magnesium Total Bilirubin AST ALT Alkaline Phosphatase Total Creatine Kinase 39 L CK-MB (Mass) 1.17 Troponin I < 0.0120 Total Protein Albumin Globulin Albumin/Globulin Ratio Alcohol, Quantitative Assessment & Plan (1) Chronic obstructive lung disease Status: Acute (2) HIV (human immunodeficiency virus infection) Status: Acute - Assessment and Plan (Free Text) Assessment: will renew hiv meds cont rx [facility] copd check t cells
[2018-03-17] MEDS: (Novolog) Insulin Aspart, Recombinant 100 u/ml 10 ml vial SC SCH ×2 (17:49→21:56)
[2018-03-17] MEDS ORDERED: LIPASE/PROTEASE/AMYLASE 21,000 U ECC PO SCH (18:00)
--- NOTE | 2018-03-17 20:38 | CP.PCM.HP ---
Past Patient History - Infectious Disease Hx of Infectious Diseases: None - Tetanus Immunizations Tetanus Immunization: Unknown - Past Medical History & Family History Past Medical History?: Yes - Past Social History Smoking Status: Former Smoker - CARDIAC Hx Cardiac Disorders: Yes Hx Hypercholesterolemia: Yes Hx Hypertension: Yes - PULMONARY Hx Respiratory Disorders: Yes Hx Asthma: Yes Hx Bronchitis: Yes Hx Chronic Obstructive Pulmonary Disease (COPD): Yes Hx Emphysema: Yes Hx Pneumonia: Yes Hx Sleep Apnea: Yes - NEUROLOGICAL Hx Neurological Disorder: No HX Cerebrovascular Accident: No Hx Seizures: No - HEENT Hx HEENT Problems: No - RENAL Hx Chronic Kidney Disease: No - ENDOCRINE/METABOLIC Hx Endocrine Disorders: Yes Hx Diabetes Mellitus Type 2: Yes - HEMATOLOGICAL/ONCOLOGICAL Hx Blood Disorders: Yes Hx Human Immunodeficiency Virus (HIV): Yes - INTEGUMENTARY Hx Dermatological Problems: No - MUSCULOSKELETAL/RHEUMATOLOGICAL Hx Musculoskeletal Disorders: Yes Hx Arthritis: Yes Hx Falls: No - GASTROINTESTINAL Hx Gastrointestinal Disorders: Yes Hx Pancreatitis: Yes - GENITOURINARY/GYNECOLOGICAL Hx Genitourinary Disorders: No Hx Sexually Transmitted Disorders: No - PSYCHIATRIC Hx Psychophysiologic Disorder: Yes Hx Anxiety: Yes Hx Substance Use: Yes - SURGICAL HISTORY Hx Surgeries: Yes Hx Orthopedic Surgery: Yes (RT KNEE) Other/Comment: comestic surgery to face post getting kicked in face by horse - ANESTHESIA Hx Anesthesia: Yes Hx Anesthesia Reactions: No Hx Malignant Hyperthermia: No Meds Allergies/Adverse Reactions: Allergies Allergy/AdvReac Type Severity Reaction Status Date / Time No Known Allergies Allergy Verified 03/14/18 13:55 Results - Vital Signs Recent Vital Signs: Last Vital Signs Temp 98.2 F 03/17/18 16:00 Pulse 91 H 03/17/18 18:02 Resp 20 03/17/18 16:00 BP 109/68 03/17/18 16:00 Pulse Ox 100 03/17/18 16:00 - Labs Result Diagrams: 03/17/18 06:38 03/17/18 06:38 Labs: Laboratory Results - last 24 hr 03/16/18 03/16/18 03/16/18 19:42 20:19 22:04 WBC RBC Hgb Hct MCV MCH MCHC RDW Plt Count MPV Neut % (Auto) Lymph % (Auto) [place] % (Auto) Eos % (Auto) Baso % (Auto) Neut # (Auto) Lymph # (Auto) [place] # (Auto) Eos # (Auto) Baso # (Auto) Neutrophils % (Manual) 89 H Band Neutrophils % 1 Lymphocytes % (Manual) 9 L Monocytes % (Manual) 1 Platelet Estimate Normal Hypochromasia (manual) Slight Poikilocytosis (manual Slight Anisocytosis (manual) Slight Ovalocytes Slight Puncture Site Rra pCO2 47 H pO2 86 HCO3 27.3 ABG pH 7.39 ABG Total CO2 29.9 H ABG O2 Saturation 99.0 H ABG Base Excess 3.0 ABG Hemoglobin 9.8 L ABG Carboxyhemoglobin 1.8 H POC ABG HHb (Measured) 1.0 ABG Methemoglobin 1.3 Narinder Test Pos Hgb O2 Saturation 95.9 Liter Flow 2.0 Sodium 144 Potassium 2.9 L Chloride 118 H Carbon Dioxide 18 L Anion Gap 11 BUN 16 Creatinine 0.7 L Est GFR ( Amer) > 60 Est GFR (Non-Af Amer) > 60 POC Glucose (mg/dL) Random Glucose 96 Calcium 6.2 L Phosphorus Magnesium Total Bilirubin 0.3 AST 19 ALT 33 Alkaline Phosphatase 33 L D Total Creatine Kinase CK-MB (Mass) Troponin I Total Protein 4.4 L Albumin 2.3 L D Globulin 2.1 L Albumin/Globulin Ratio 1.1 03/17/18 03/17/18 03/17/18 06:29 06:38 06:38 WBC 7.2 D RBC 3.40 L Hgb 9.4 L D Hct 30.0 L MCV 88.0 MCH 27.8 MCHC 31.5 L RDW 16.2 H Plt Count 231 MPV 8.1 Neut % (Auto) 95.2 H Lymph % (Auto) 2.3 L [place] % (Auto) 2.4 Eos % (Auto) 0.0 Baso % (Auto) 0.1 Neut # (Auto) 6.8 Lymph # (Auto) 0.2 L [place] # (Auto) 0.2 Eos # (Auto) 0.0 Baso # (Auto) 0.0 Neutrophils % (Manual) 95 H Band Neutrophils % 1 Lymphocytes % (Manual) 2 L Monocytes % (Manual) 2 Platelet Estimate Normal Hypochromasia (manual) Slight Poikilocytosis (manual Anisocytosis (manual) Slight Ovalocytes Puncture Site pCO2 pO2 HCO3 ABG pH ABG Total CO2 ABG O2 Saturation ABG Base Excess ABG Hemoglobin ABG Carboxyhemoglobin POC ABG HHb (Measured) ABG Methemoglobin Narinder Test Hgb O2 Saturation Liter Flow Sodium 139 Potassium 4.6 Chloride 105 Carbon Dioxide 25 Anion Gap 14 BUN 25 H Creatinine 1.0 Est GFR ( Amer) > 60 Est GFR (Non-Af Amer) > 60 POC Glucose (mg/dL) 470 H* Random Glucose 468 H* D Calcium 8.7 Phosphorus 3.6 Magnesium 2.2 Total Bilirubin 0.4 AST 22 ALT 28 Alkaline Phosphatase 67 Total Creatine Kinase CK-MB (Mass) Troponin I Total Protein 6.1 L Albumin 3.5 D Globulin 2.6 Albumin/Globulin Ratio 1.3 03/17/18 03/17/18 03/17/18 11:24 12:35 14:01 WBC RBC Hgb Hct MCV MCH MCHC RDW Plt Count MPV Neut % (Auto) Lymph % (Auto) [place] % (Auto) Eos % (Auto) Baso % (Auto) Neut # (Auto) Lymph # (Auto) [place] # (Auto) Eos # (Auto) Baso # (Auto) Neutrophils % (Manual) Band Neutrophils % Lymphocytes % (Manual) Monocytes % (Manual) Platelet Estimate Hypochromasia (manual) Poikilocytosis (manual Anisocytosis (manual) Ovalocytes Puncture Site pCO2 pO2 HCO3 ABG pH ABG Total CO2 ABG O2 Saturation ABG Base Excess ABG Hemoglobin ABG Carboxyhemoglobin POC ABG HHb (Measured) ABG Methemoglobin Narinder Test Hgb O2 Saturation Liter Flow Sodium Potassium Chloride Carbon Dioxide Anion Gap BUN Creatinine Est GFR ( Amer) Est GFR (Non-Af Amer) POC Glucose (mg/dL) 442 H* 425 H* Random Glucose Calcium Phosphorus Magnesium Total Bilirubin AST ALT Alkaline Phosphatase Total Creatine Kinase 39 L CK-MB (Mass) 1.17 Troponin I < 0.0120 Total Protein Albumin Globulin Albumin/Globulin Ratio 03/17/18 03/17/18 16:52 19:22 WBC RBC Hgb Hct MCV MCH MCHC RDW Plt Count MPV Neut % (Auto) Lymph % (Auto) [place] % (Auto) Eos % (Auto) Baso % (Auto) Neut # (Auto) Lymph # (Auto) [place] # (Auto) Eos # (Auto) Baso # (Auto) Neutrophils % (Manual) Band Neutrophils % Lymphocytes % (Manual) Monocytes % (Manual) Platelet Estimate Hypochromasia (manual) Poikilocytosis (manual Anisocytosis (manual) Ovalocytes Puncture Site pCO2 pO2 HCO3 ABG pH ABG Total CO2 ABG O2 Saturation ABG Base Excess ABG Hemoglobin ABG Carboxyhemoglobin POC ABG HHb (Measured) ABG Methemoglobin Narinder Test Hgb O2 Saturation Liter Flow Sodium Potassium Chloride Carbon Dioxide Anion Gap BUN Creatinine Est GFR ( Amer) Est GFR (Non-Af Amer) POC Glucose (mg/dL) 287 H Random Glucose Calcium Phosphorus Magnesium Total Bilirubin AST ALT Alkaline Phosphatase Total Creatine Kinase 25 L CK-MB (Mass) 0.90 Troponin I < 0.0120 Total Protein Albumin Globulin Albumin/Globulin Ratio
[2018-03-17] MEDS: Insulin Detemir 100 units/ml Vial (Levemir) SC SCH (21:56)
[2018-03-17] MEDS: Azithromycin 500mg/250ML NS 500 MG/250 ML BAG IVPB SCH (22:12)
[2018-03-17 22:53] LABS: SQUAMOUS EPITHIAL < 1 /hpf (0-5); URINE BILIRUBIN NEGATIVE (NEGATIVE); URINE BLOOD NEGATIVE (NEGATIVE); URINE CLARITY Clear (Clear); URINE COLOR Straw (YELLOW); URINE GLUCOSE (UA) 3+ mg/dL (Normal); URINE LEUKOCYTE ESTERASE NEG Leu/uL (Negative); URINE PROTEIN NEGATIVE (NEGATIVE); URINE UROBILINOGEN NORMAL mg/dL (0.2-1.0)
[2018-03-17 23:11] LABS: BARBITURATES, UR NEGATIVE (NEGATIVE); PHENCYCLIDINE, UR NEGATIVE (NEGATIVE)
[2018-03-17 23:31] LABS: BENZODIAZEPINES, UR POSITIVE (NEGATIVE); OPIATES, UR POSITIVE (NEGATIVE)
[2018-03-18] MEDS: Albuterol-Ipratrop 3 mg / 0.5 (3 ml) UD INH SCH ×3 (01:43→13:32)
--- NOTE | 2018-03-18 01:54 | CON ---
DATE: 03/17/2018 CARDIOLOGY CONSULTATION REASON FOR CONSULTATION: Sinus tachycardia. HISTORY OF PRESENT ILLNESS: The patient is a 62-year-old male who has history of chronic obstructive lung disease, presented because of shortness of breath and with suicidal ideation. The patient was admitted three days ago to [facility] and was discharged yesterday. The patient's admission was exacerbation of chronic obstructive lung disease. According to the records of [facility], the patient has history of HIV, COPD, hypertension, diabetes mellitus, and has a nasal O2 at home. The patient apparently left against medical advice from [facility] today. SOCIAL HISTORY: The patient denies any history of smoking. PAST MEDICAL HISTORY: Chronic obstructive lung disease, HIV positive, peripheral neuropathy, diabetes mellitus. REVIEW OF SYSTEMS: The patient has nausea. He denies any fever or chills. He denies any retrosternal chest pain. MEDICATIONS: Aldactone 25 mg once a day, Rocephin 1 gm intravenously daily, Cozaar 25 mg once a day, Lasix 20 mg p.o. once a day, Levemir 20 units subcutaneously once a day, Lovenox 40 mg subcutaneously once a day, Norvasc 5 mg once a day, Protonix 40 mg p.o. once a day, Robitussin DM 10 mL every 4 hours p.r.n., Solu-Medrol 40 mg intravenously every 8 hours, Xanax 0.25 mg t.i.d., Zithromax 500 mg intravenously daily, Zoloft 50 mg once a day. PHYSICAL EXAMINATION: GENERAL: The patient is a middle age man who does not appear to be in acute distress. VITAL SIGNS: Blood pressure 153/89, heart rate 77, temperature 98, respirations 20. HEENT: Pale conjunctivae. CHEST: Bilateral rhonchi. HEART: S1 and S2 regular. ABDOMEN: Soft. EXTREMITIES: No edema. LABORATORY DATA: Today's hemoglobin and hematocrit 9.4 and 30, white count 7.2, platelet count 231,000. Yesterday's white count was 14.7. Today's SMA-7 is within normal limits except for glucose of 468 and BUN of 25. Today's one set of troponin is negative. Alcohol level is below 10. Urine drug screen on 01/13/2018 was positive for opiate. EKG revealed sinus tachycardia at the rate of 107, possible left atrial enlargement. The echocardiographic study revealed normal left ventricular size wall thickness. Left ventricular systolic function was borderline. Grade 1 abnormal relaxation pattern. ASSESSMENT: 1. Exacerbation of chronic obstructive lung disease. 2. Suicidal ideation. 3. Uncontrolled diabetes mellitus. 4. Hypertension. 5. Human immunodeficiency virus positive. RECOMMENDATIONS: Continue Aldactone 25 mg orally once a day, IV Rocephin at 1 gm daily, IV Zithromax 500 mg daily, albuterol inhaler 1 puff every 6 hours p.r.n., Singulair 10 mg at bedtime, Robitussin DM 10 mL every 4 hours p.r.n., Norvasc at 5 mg once a day, Neurontin 300 mg t.i.d., Lovenox 40 mg subcutaneously once a day, Lasix 20 mg p.o. once a day, and Cozaar 25 mg once a day. Obtain urine for drug screen. Beto Martínez MD
[2018-03-18] MEDS: MethylPREDNISolone 40 mg Vial IVP SCH ×3 (06:00→22:17)
[2018-03-18 08:30] LABS: BASO % 0.2 % (0.0-2.0); HEMOGLOBIN 8.7 g/dL (12.0-18.0); LYMPH # 0.4 K/uL (1.0-4.3); LYMPH % 4.1 % (20.0-40.0); MEAN CORPUSCULAR HEMOGLOBIN 27.7 pg (27.0-31.0); MEAN CORPUSCULAR HGB CONC 31.9 g/dL (33.0-37.0); MEAN PLATELET VOLUME 7.7 fL (7.2-11.7); MONO # 0.2 K/uL (0.0-0.8); MONO % 2.3 % (0.0-10.0); NEUT # 9.7 K/uL (1.8-7.0); NEUT % 93.4 % (50.0-75.0); PLATELET COUNT 231 K/uL (130-400); RBC 3.13 Mil/uL (4.40-5.90); RED CELL DISTRIBUTION WIDTH 15.6 % (11.5-14.5); WHITE BLOOD COUNT 10.4 K/uL (4.8-10.8)
[2018-03-18] MEDS: (Novolog) Insulin Aspart, Recombinant 100 u/ml 10 ml vial SC SCH ×4 (08:43→22:17)
[2018-03-18 08:49] LABS: ALB/GLOB RATIO 1.3 (1.0-2.1); ALBUMIN 3.3 g/dL (3.5-5.0); ALT/SGPT 27 U/L (21-72); AST/SGOT 12 U/L (17-59); BLOOD UREA NITROGEN 28 mg/dL (9-20); CALCIUM 9.4 mg/dl (8.6-10.4); GFR AFRICAN-AMERICAN > 60; GFR NON-AFRICAN AMERICAN > 60
[2018-03-18] MEDS: LIPASE/PROTEASE/AMYLASE 21,000 U ECC PO SCH ×4 (08:49→17:35)
[2018-03-18 08:58] LABS: CK-MB 0.81 ng/mL (0.0-3.38)
[2018-03-18] MEDS: Pantoprazole 40 mg EC Tab PO SCH (09:35)
[2018-03-18] MEDS: Enoxaparin 40 mg Syringe SC SCH (09:37)
[2018-03-18 10:23] LABS: LYMPHOCYTE 5 % (20-40); MONOCYTE 2 % (0-10); NEUTROPHIL 93 % (50-75); PLATELET ESTIMATE NORMAL (NORMAL); TOTAL CELLS COUNTED 100
[2018-03-18 10:24] LABS: ANISOCYTOSIS SLIGHT; HYPOCHROMIC SLIGHT; OVALOCYTES SLIGHT; POIKILOCYTOSIS SLIGHT; POLYCHROMIC SLIGHT; SCHISTOCYTES SLIGHT
[2018-03-18 10:25] LABS: BURR CELLS SLIGHT
--- NOTE | 2018-03-18 12:28 | CP.PCM.PN ---
Subjective - Date & Time of Evaluation Date of Evaluation: 03/18/18 Time of Evaluation: 10:30 - Subjective Subjective: Patient seen and examined still complaining ofcough less shortness of breath Afebrile Complaining of weakness Objective - Vital Signs/Intake and Output Vital Signs (last 24 hours): Temp Pulse Resp BP Pulse Ox 98.2 F 62 20 128/77 100 03/18/18 08:00 03/18/18 08:00 03/18/18 08:00 03/18/18 09:33 03/18/18 08:00 Intake and Output: 03/18/18 03/18/18 06:59 18:59 Intake Total 500 Balance 500 - Medications Medications: Current Medications Abacavir Sulfate (Ziagen) 300 mg PO BID [facility] PRN Reason: Protocol Last Admin: 03/18/18 09:36 Dose: 300 mg Albuterol (Ventolin Hfa 90 Mcg/Actuation (8 G)) 1 puff IH PRN PRN PRN Reason: Shortness of Breath Albuterol/Ipratropium (Duoneb 3 Mg/0.5 Mg (3 Ml) Ud) 3 ml INH RQ6 [facility] Last Admin: 03/18/18 07:30 Dose: 3 ml Alprazolam (Xanax) 0.25 mg PO TID [facility] Stop: 03/24/18 10:01 Last Admin: 03/18/18 09:32 Dose: 0.25 mg Amlodipine Besylate (Norvasc) 5 mg PO DAILY [facility] Last Admin: 03/18/18 09:33 Dose: 5 mg Enoxaparin Sodium (Lovenox) 40 mg SC DAILY [facility] Last Admin: 03/18/18 09:37 Dose: Not Given Furosemide (Lasix) 20 mg PO DAILY [facility] Last Admin: 03/18/18 09:33 Dose: 20 mg Gabapentin (Neurontin) 300 mg PO TID [facility] Last Admin: 03/18/18 09:33 Dose: 300 mg Guaifenesin/Dextromethorphan (Robitussin Dm) 10 ml PO Q4H PRN PRN Reason: Cough Home Med (Budesonide/Formoterol Fumarate [Symbicort 160-4.5 Mcg Inhaler]) 1 aer IH BID [facility] Ceftriaxone Sodium 1 gm/ (Sodium Chloride) 100 mls @ 100 mls/hr IVPB DAILY [facility] PRN Reason: Protocol Last Admin: 03/18/18 09:35 Dose: 100 mls/hr Azithromycin (Zithromax 500mg In Ns Addvantage) 500 mg in 250 mls @ 167 mls/hr IVPB Q24H [facility] PRN Reason: Protocol Last Admin: 03/17/18 22:12 Dose: 167 mls/hr Insulin Aspart (Novolog) 0 unit SC ACHS [facility] PRN Reason: Protocol Last Admin: 03/18/18 08:43 Dose: 6 units Insulin Detemir (Levemir) 20 unit SC HS [facility] Last Admin: 03/17/18 21:56 Dose: 20 units Lamivudine (Epivir) 150 mg PO BID [facility] PRN Reason: Protocol Last Admin: 03/18/18 09:36 Dose: 150 mg Losartan Potassium (Cozaar) 25 mg PO DAILY [facility] Last Admin: 03/18/18 09:35 Dose: 25 mg Methylprednisolone (Solu-Medrol) 40 mg IVP Q8H [facility] Last Admin: 03/18/18 06:00 Dose: 40 mg Montelukast Sodium (Singulair) 10 mg PO HS [facility] Last Admin: 03/17/18 21:55 Dose: 10 mg Pantoprazole Sodium (Protonix Ec Tab) 40 mg PO DAILY [facility] Last Admin: 03/18/18 09:35 Dose: 40 mg Raltegravir (Isentress) 400 mg PO BID [facility] PRN Reason: Protocol Last Admin: 03/18/18 09:37 Dose: 400 mg Sertraline HCl (Zoloft) 50 mg PO DAILY [facility] Last Admin: 03/18/18 09:35 Dose: 50 mg Spironolactone (Aldactone) 25 mg PO DAILY [facility] Last Admin: 03/18/18 09:33 Dose: 25 mg - Labs Labs: 03/18/18 08:21 03/18/18 08:21 - Head Exam Head Exam: ATRAUMATIC, NORMOCEPHALIC - ENT Exam ENT Exam: Mucous Membranes Moist - Neck Exam Neck Exam: Full ROM, Normal Inspection - Respiratory Exam Respiratory Exam: Decreased Breath Sounds - Cardiovascular Exam Cardiovascular Exam: REGULAR RHYTHM - GI/Abdominal Exam GI & Abdominal Exam: Soft, Normal Bowel Sounds Assessment and Plan (1) Chronic obstructive lung disease Assessment & Plan: continue IV steroids, nebulizer treatment and antibiotics Status: Acute (2) HIV (human immunodeficiency virus infection) Status: Acute
--- NOTE | 2018-03-18 15:00 | CP.PCM.PN ---
Subjective - Date & Time of Evaluation Date of Evaluation: 03/18/18 Time of Evaluation: 10:00 - Subjective Subjective: clinically same Objective - Vital Signs/Intake and Output Vital Signs (last 24 hours): Temp Pulse Resp BP Pulse Ox 98.2 F 62 20 128/77 100 03/18/18 08:00 03/18/18 08:00 03/18/18 08:00 03/18/18 09:33 03/18/18 08:00 Intake and Output: 03/18/18 03/18/18 06:59 18:59 Intake Total 500 450 Output Total 650 Balance 500 -200 - Medications Medications: Current Medications Abacavir Sulfate (Ziagen) 300 mg PO BID [facility] PRN Reason: Protocol Last Admin: 03/18/18 09:36 Dose: 300 mg Albuterol (Ventolin Hfa 90 Mcg/Actuation (8 G)) 1 puff IH PRN PRN PRN Reason: Shortness of Breath Albuterol/Ipratropium (Duoneb 3 Mg/0.5 Mg (3 Ml) Ud) 3 ml INH RQ6 [facility] Last Admin: 03/18/18 13:32 Dose: 3 ml Alprazolam (Xanax) 0.25 mg PO TID [facility] Stop: 03/24/18 10:01 Last Admin: 03/18/18 13:20 Dose: 0.25 mg Amlodipine Besylate (Norvasc) 5 mg PO DAILY [facility] Last Admin: 03/18/18 09:33 Dose: 5 mg Enoxaparin Sodium (Lovenox) 40 mg SC DAILY [facility] Last Admin: 03/18/18 09:37 Dose: Not Given Furosemide (Lasix) 20 mg PO DAILY [facility] Last Admin: 03/18/18 09:33 Dose: 20 mg Gabapentin (Neurontin) 300 mg PO TID [facility] Last Admin: 03/18/18 13:21 Dose: 300 mg Guaifenesin/Dextromethorphan (Robitussin Dm) 10 ml PO Q4H PRN PRN Reason: Cough Home Med (Budesonide/Formoterol Fumarate [Symbicort 160-4.5 Mcg Inhaler]) 1 aer IH BID [facility] Ceftriaxone Sodium 1 gm/ (Sodium Chloride) 100 mls @ 100 mls/hr IVPB DAILY [facility] PRN Reason: Protocol Last Admin: 03/18/18 09:35 Dose: 100 mls/hr Azithromycin (Zithromax 500mg In Ns Addvantage) 500 mg in 250 mls @ 167 mls/hr IVPB Q24H [facility] PRN Reason: Protocol Last Admin: 03/17/18 22:12 Dose: 167 mls/hr Insulin Aspart (Novolog) 0 unit SC ACHS [facility] PRN Reason: Protocol Last Admin: 03/18/18 13:21 Dose: 8 units Insulin Detemir (Levemir) 20 unit SC HS [facility] Last Admin: 03/17/18 21:56 Dose: 20 units Lamivudine (Epivir) 150 mg PO BID [facility] PRN Reason: Protocol Last Admin: 03/18/18 09:36 Dose: 150 mg Losartan Potassium (Cozaar) 25 mg PO DAILY [facility] Last Admin: 03/18/18 09:35 Dose: 25 mg Methylprednisolone (Solu-Medrol) 40 mg IVP Q8H [facility] Last Admin: 03/18/18 13:21 Dose: 40 mg Montelukast Sodium (Singulair) 10 mg PO HS [facility] Last Admin: 03/17/18 21:55 Dose: 10 mg Pantoprazole Sodium (Protonix Ec Tab) 40 mg PO DAILY [facility] Last Admin: 03/18/18 09:35 Dose: 40 mg Raltegravir (Isentress) 400 mg PO BID [facility] PRN Reason: Protocol Last Admin: 03/18/18 09:37 Dose: 400 mg Sertraline HCl (Zoloft) 50 mg PO DAILY [facility] Last Admin: 03/18/18 09:35 Dose: 50 mg Spironolactone (Aldactone) 25 mg PO DAILY [facility] Last Admin: 03/18/18 09:33 Dose: 25 mg - Labs Labs: 03/18/18 08:21 03/18/18 08:21 - Constitutional Appears: Well - Head Exam Head Exam: ATRAUMATIC, NORMAL INSPECTION, NORMOCEPHALIC - Eye Exam Eye Exam: EOMI, Normal appearance, PERRL Pupil Exam: NORMAL ACCOMODATION, PERRL - ENT Exam ENT Exam: Mucous Membranes Moist, Normal Exam - Neck Exam Neck Exam: Full ROM, Normal Inspection. absent: Lymphadenopathy - Respiratory Exam Respiratory Exam: Decreased Breath Sounds - Cardiovascular Exam Cardiovascular Exam: REGULAR RHYTHM, +S1, +S2 - GI/Abdominal Exam GI & Abdominal Exam: Soft, Diminished Bowel Sounds - Rectal Exam Rectal Exam: Deferred
--- NOTE | 2018-03-18 22:13 | PN ---
DATE: 03/18/2018 SUBJECTIVE: The patient's shortness of breath has improved. He complains of occasional wheezing. No retrosternal chest pain. OBJECTIVE: VITAL SIGNS: Blood pressure 118/74, heart rate 81, temperature 98.2, respirations 20. HEENT: Pale conjunctiva. CHEST: Bilateral rhonchi. HEART: S1, S2 regular. EXTREMITIES: Trace edema. LABORATORY DATA: Today's hemoglobin and hematocrit 8.7 and 27.2. White count and platelet count are within normal limits. Today's, SMA-7 is within normal limits except glucose and BUN of 28. ASSESSMENT: 1. Exacerbation of chronic obstructive lung disease. 2. Hypertension. 3. Uncontrolled diabetes mellitus. 4. Human immunodeficiency virus positive. 5. Chest tightness, myocardial infarction was ruled out. 6. Grade 1 abnormal relaxation pattern. RECOMMENDATIONS: Continue Aldactone 25 mg once a day, Rocephin 1 gm intravenously daily, Cozaar 25 mg once a day, Lasix 20 mg p.o. once a day, Neurontin 300 mg t.i.d., Norvasc 5 mg once a day, Robitussin DM 10 mL every 4 hours p.r.n., Singulair 10 mg at bedtime, Solu-Medrol 40 mg intravenously 8 hours, Zithromax 500 mg intravenously daily. Continue antiviral medicine. Beto Martínez MD
[2018-03-18] MEDS: Insulin Detemir 100 units/ml Vial (Levemir) SC SCH (22:17)
[2018-03-18] MEDS: Azithromycin 500mg/250ML NS 500 MG/250 ML BAG IVPB SCH (22:35)
[2018-03-19] MEDS: Albuterol-Ipratrop 3 mg / 0.5 (3 ml) UD INH SCH ×4 (01:00→20:57)
[2018-03-19] MEDS: MethylPREDNISolone 40 mg Vial IVP SCH ×3 (06:11→21:29)
[2018-03-19] MEDS: (Novolog) Insulin Aspart, Recombinant 100 u/ml 10 ml vial SC SCH ×4 (07:36→21:29)
[2018-03-19] MEDS: LIPASE/PROTEASE/AMYLASE 21,000 U ECC PO SCH ×3 (07:41→17:05)
[2018-03-19 08:26] LABS: BASO % 0.2 % (0.0-2.0); EOS % 0.1 % (0.0-4.0); HEMOGLOBIN 9.1 g/dL (12.0-18.0); LYMPH # 0.6 K/uL (1.0-4.3); LYMPH % 4.5 % (20.0-40.0); MEAN CELL VOLUME 85.9 fL (80.0-94.0); MEAN CORPUSCULAR HEMOGLOBIN 27.8 pg (27.0-31.0); MEAN CORPUSCULAR HGB CONC 32.4 g/dL (33.0-37.0); MEAN PLATELET VOLUME 8.2 fL (7.2-11.7); MONO # 0.3 K/uL (0.0-0.8); MONO % 2.4 % (0.0-10.0); NEUT # 11.8 K/uL (1.8-7.0); NEUT % 92.8 % (50.0-75.0); NRBC % 0.1 % (0.0-2.0); PLATELET COUNT 258 K/uL (130-400); RBC 3.28 Mil/uL (4.40-5.90); RED CELL DISTRIBUTION WIDTH 16.1 % (11.5-14.5); WHITE BLOOD COUNT 12.7 K/uL (4.8-10.8)
[2018-03-19 08:39] LABS: ALB/GLOB RATIO 1.4 (1.0-2.1); ALBUMIN 3.4 g/dL (3.5-5.0); ALT/SGPT 26 U/L (21-72); AST/SGOT 10 U/L (17-59); BLOOD UREA NITROGEN 33 mg/dL (9-20); CALCIUM 9.3 mg/dl (8.6-10.4); GFR AFRICAN-AMERICAN > 60; GFR NON-AFRICAN AMERICAN > 60
[2018-03-19 09:01] LABS: ANISOCYTOSIS SLIGHT; HYPOCHROMIC SLIGHT; LYMPHOCYTE 3 % (20-40); MONOCYTE 1 % (0-10); NEUTROPHIL 96 % (50-75); PLATELET ESTIMATE NORMAL (NORMAL); TOTAL CELLS COUNTED 100
[2018-03-19 09:02] LABS: POLYCHROMIC SLIGHT
[2018-03-19 09:04] LABS: OVALOCYTES SLIGHT
[2018-03-19] MEDS: Pantoprazole 40 mg EC Tab PO SCH (09:34)
[2018-03-19] MEDS: Enoxaparin 40 mg Syringe SC SCH ×2 (09:35→09:37)
--- NOTE | 2018-03-19 15:07 | CP.PCM.PN ---
Subjective - Date & Time of Evaluation Date of Evaluation: 03/19/18 Time of Evaluation: 08:00 - Subjective Subjective: 62 year old male male with past medical history of HIV on HAART , COPD, DM, HTN, multiple prior hospitalizations for COPD exarcebation. . Patient presented to the ED with complaint of SOB and suicidal ideation around 5 pm. . Patient reports that he has a non-productive cough, shortness of breath and chest tightness. has less cough and congestion at present l Objective - Vital Signs/Intake and Output Vital Signs (last 24 hours): Temp Pulse Resp BP Pulse Ox 98.1 F 70 20 120/68 100 03/19/18 07:00 03/19/18 07:00 03/19/18 07:00 03/19/18 09:35 03/19/18 07:00 Intake and Output: 03/19/18 03/19/18 06:59 18:59 Intake Total 900 580 Balance 900 580 - Medications Medications: Current Medications Abacavir Sulfate (Ziagen) 300 mg PO BID [facility] PRN Reason: Protocol Last Admin: 03/19/18 09:34 Dose: 300 mg Albuterol (Ventolin Hfa 90 Mcg/Actuation (8 G)) 1 puff IH PRN PRN PRN Reason: Shortness of Breath Albuterol/Ipratropium (Duoneb 3 Mg/0.5 Mg (3 Ml) Ud) 3 ml INH RQ6 [facility] Last Admin: 03/19/18 13:26 Dose: 3 ml Alprazolam (Xanax) 0.25 mg PO TID [facility] Stop: 03/24/18 10:01 Last Admin: 03/19/18 13:02 Dose: 0.25 mg Amlodipine Besylate (Norvasc) 5 mg PO DAILY [facility] Last Admin: 03/19/18 09:35 Dose: 5 mg Enoxaparin Sodium (Lovenox) 40 mg SC DAILY [facility] Last Admin: 03/19/18 09:37 Dose: Not Given Furosemide (Lasix) 20 mg PO DAILY [facility] Last Admin: 03/19/18 09:35 Dose: 20 mg Gabapentin (Neurontin) 300 mg PO TID [facility] Last Admin: 03/19/18 13:02 Dose: 300 mg Guaifenesin/Dextromethorphan (Robitussin Dm) 10 ml PO Q4H PRN PRN Reason: Cough Home Med (Budesonide/Formoterol Fumarate [Symbicort 160-4.5 Mcg Inhaler]) 1 aer IH BID [facility] Ceftriaxone Sodium 1 gm/ (Sodium Chloride) 100 mls @ 100 mls/hr IVPB DAILY [facility] PRN Reason: Protocol Last Admin: 03/19/18 11:38 Dose: 100 mls/hr Azithromycin (Zithromax 500mg In Ns Addvantage) 500 mg in 250 mls @ 167 mls/hr IVPB Q24H [facility] PRN Reason: Protocol Last Admin: 03/18/18 22:35 Dose: 167 mls/hr Insulin Aspart (Novolog) 0 unit SC ACHS [facility] PRN Reason: Protocol Last Admin: 03/19/18 12:59 Dose: 10 units Insulin Detemir (Levemir) 20 unit SC HS [facility] Last Admin: 03/18/18 22:17 Dose: 20 units Lamivudine (Epivir) 150 mg PO BID [facility] PRN Reason: Protocol Last Admin: 03/19/18 09:34 Dose: 150 mg Losartan Potassium (Cozaar) 25 mg PO DAILY [facility] Last Admin: 03/19/18 09:34 Dose: 25 mg Methylprednisolone (Solu-Medrol) 40 mg IVP Q8H [facility] Last Admin: 03/19/18 13:10 Dose: 40 mg Montelukast Sodium (Singulair) 10 mg PO HS [facility] Last Admin: 03/18/18 22:16 Dose: 10 mg Pantoprazole Sodium (Protonix Ec Tab) 40 mg PO DAILY [facility] Last Admin: 03/19/18 09:34 Dose: 40 mg Raltegravir (Isentress) 400 mg PO BID [facility] PRN Reason: Protocol Last Admin: 03/19/18 09:34 Dose: 400 mg Sertraline HCl (Zoloft) 50 mg PO DAILY [facility] Last Admin: 03/19/18 09:35 Dose: 50 mg Spironolactone (Aldactone) 25 mg PO DAILY [facility] Last Admin: 03/19/18 09:34 Dose: 25 mg - Labs Labs: 03/19/18 08:11 03/19/18 08:11 - Constitutional Appears: Non-toxic, Chronically Ill - Head Exam Head Exam: NORMOCEPHALIC - Eye Exam Eye Exam: PERRL - ENT Exam ENT Exam: Mucous Membranes Dry - Neck Exam Neck Exam: absent: Lymphadenopathy - Respiratory Exam Respiratory Exam: Decreased Breath Sounds - Cardiovascular Exam Cardiovascular Exam: REGULAR RHYTHM - GI/Abdominal Exam GI & Abdominal Exam: Distended, Soft. absent: Tenderness - Rectal Exam Rectal Exam: Deferred - Exam Exam: NORMAL INSPECTION - Back Exam Back Exam: absent: CVA tenderness (L), CVA tenderness (R) - Neurological Exam Neurological Exam: Alert, Awake, Oriented x3 - Psychiatric Exam Psychiatric exam: Normal Mood - Skin Skin Exam: Dry Assessment and Plan (1) Chronic obstructive lung disease Status: Acute (2) HIV (human immunodeficiency virus infection) Status: Acute - Assessment and Plan (Free Text) Assessment: cultures so far neg await t cells and viral load cont rx
--- NOTE | 2018-03-19 16:11 | CARD ---
APPROVED REPORT Date of service: 03/16/2018 EKG Measurement Heart [id number] <Conclusion> Sinus tachycardia Possible Left atrial enlargement Borderline ECG
[2018-03-19] MEDS: Insulin Detemir 100 units/ml Vial (Levemir) SC SCH (21:30)
[2018-03-19] MEDS: Azithromycin 500mg/250ML NS 500 MG/250 ML BAG IVPB SCH (21:30)
--- NOTE | 2018-03-19 21:52 | PN ---
DATE: 03/19/2018 SUBJECTIVE: The patient denies any chest pain. Shortness of breath has improved. He is complaining of poor appetite to the type of food he receives. PHYSICAL EXAMINATION: VITAL SIGNS: Blood pressure 118/75, heart rate 70, temperature 98.2, respirations 20. HEENT: Pale conjunctivae. CHEST: Bilateral rhonchi. HEART: S1 and S2 regular. EXTREMITIES: No edema. LABORATORY DATA: Hemoglobin and hematocrit 9.1 and 28.2, white count 12.7, and platelet count 158,000. SMA-7 is within normal limits except glucose 140 and BUN of 33. Blood cultures negative at 48 hours. ASSESSMENT: 1. Hypertension. 2. Exacerbation of chronic obstructive lung disease. 3. Uncontrolled diabetes mellitus. 4. Human immunodeficiency virus positive. 5. Chest pain, myocardial infarction is ruled out. 6. Diastolic left ventricular dysfunction. 7. Anemia. RECOMMENDATIONS: Continue Aldactone 25 mg once a day, IV Rocephin 1 gm daily, Cozaar 25 mg once a day, Lasix 20 mg p.o. once a day, Lovenox 40 mg subcutaneously once a day, Neurontin 300 mg t.i.d., Norvasc 5 mg once a day, Solu-Medrol 40 mg intravenously every 8 hours, Zithromax 500 mg intravenously daily. I did request dietary consultation. Beto Martínez MD
[2018-03-20] MEDS: Albuterol-Ipratrop 3 mg / 0.5 (3 ml) UD INH SCH ×4 (01:32→20:43)
[2018-03-20] MEDS ORDERED: (Novolin R) Insulin Human Regular 100 units/ml vial SC ONE (01:58)
[2018-03-20] MEDS: LIPASE/PROTEASE/AMYLASE 21,000 U ECC PO SCH ×3 (06:35→17:34)
[2018-03-20] MEDS: MethylPREDNISolone 40 mg Vial IVP SCH ×3 (06:35→21:30)
[2018-03-20 07:30] LABS: ALB/GLOB RATIO 1.3 (1.0-2.1); ALBUMIN 3.3 g/dL (3.5-5.0); ALT/SGPT 24 U/L (21-72); AST/SGOT 11 U/L (17-59); BLOOD UREA NITROGEN 36 mg/dL (9-20); CALCIUM 9.2 mg/dl (8.6-10.4); GFR AFRICAN-AMERICAN > 60; GFR NON-AFRICAN AMERICAN > 60
[2018-03-20 07:36] LABS: BASO % 0.2 % (0.0-2.0); HEMOGLOBIN 9.2 g/dL (12.0-18.0); LYMPH # 0.5 K/uL (1.0-4.3); LYMPH % 4.4 % (20.0-40.0); MEAN CELL VOLUME 85.1 fL (80.0-94.0); MEAN CORPUSCULAR HEMOGLOBIN 27.5 pg (27.0-31.0); MEAN CORPUSCULAR HGB CONC 32.3 g/dL (33.0-37.0); MEAN PLATELET VOLUME 8.2 fL (7.2-11.7); MONO # 0.4 K/uL (0.0-0.8); MONO % 3.2 % (0.0-10.0); NEUT # 11.3 K/uL (1.8-7.0); NEUT % 92.2 % (50.0-75.0); NRBC % 0.1 % (0.0-2.0); PLATELET COUNT 266 K/uL (130-400); RBC 3.35 Mil/uL (4.40-5.90); WHITE BLOOD COUNT 12.3 K/uL (4.8-10.8)
[2018-03-20 08:39] LABS: ANISOCYTOSIS SLIGHT; LYMPHOCYTE 2 % (20-40); MONOCYTE 3 % (0-10); NEUTROPHIL 95 % (50-75); PLATELET ESTIMATE NORMAL (NORMAL); TOTAL CELLS COUNTED 100
[2018-03-20 08:40] LABS: HYPOCHROMIC SLIGHT; OVALOCYTES SLIGHT
[2018-03-20] MEDS: (Novolog) Insulin Aspart, Recombinant 100 u/ml 10 ml vial SC SCH ×4 (08:50→21:30)
[2018-03-20] MEDS: Pantoprazole 40 mg EC Tab PO SCH (09:44)
[2018-03-20] MEDS: Enoxaparin 40 mg Syringe SC SCH (09:45)
--- NOTE | 2018-03-20 12:27 | CP.PCM.PN ---
Subjective - Date & Time of Evaluation Date of Evaluation: 03/20/18 Time of Evaluation: 08:00 - Subjective Subjective: less cough and congestion needs pulm eval recent viral load OK await t cells Objective - Vital Signs/Intake and Output Vital Signs (last 24 hours): Temp Pulse Resp BP Pulse Ox 98.1 F 74 20 119/75 99 03/20/18 08:00 03/20/18 08:01 03/20/18 08:00 03/20/18 09:44 03/20/18 08:00 Intake and Output: 03/20/18 03/20/18 06:59 18:59 Intake Total 800 Balance 800 - Medications Medications: Current Medications Abacavir Sulfate (Ziagen) 300 mg PO BID [facility] PRN Reason: Protocol Last Admin: 03/20/18 09:45 Dose: 300 mg Albuterol (Ventolin Hfa 90 Mcg/Actuation (8 G)) 1 puff IH PRN PRN PRN Reason: Shortness of Breath Albuterol/Ipratropium (Duoneb 3 Mg/0.5 Mg (3 Ml) Ud) 3 ml INH RQ6 [facility] Last Admin: 03/20/18 09:54 Dose: 3 ml Alprazolam (Xanax) 0.25 mg PO TID [facility] Stop: 03/24/18 10:01 Last Admin: 03/20/18 09:44 Dose: 0.25 mg Amlodipine Besylate (Norvasc) 5 mg PO DAILY [facility] Last Admin: 03/20/18 09:44 Dose: 5 mg Enoxaparin Sodium (Lovenox) 40 mg SC DAILY [facility] Last Admin: 03/20/18 09:45 Dose: Not Given Furosemide (Lasix) 20 mg PO DAILY [facility] Last Admin: 03/20/18 09:44 Dose: 20 mg Gabapentin (Neurontin) 300 mg PO TID [facility] Last Admin: 03/20/18 09:44 Dose: 300 mg Guaifenesin/Dextromethorphan (Robitussin Dm) 10 ml PO Q4H PRN PRN Reason: Cough Home Med (Budesonide/Formoterol Fumarate [Symbicort 160-4.5 Mcg Inhaler]) 1 aer IH BID [facility] Ceftriaxone Sodium 1 gm/ (Sodium Chloride) 100 mls @ 100 mls/hr IVPB DAILY [facility] PRN Reason: Protocol Last Admin: 03/20/18 09:46 Dose: 100 mls/hr Azithromycin (Zithromax 500mg In Ns Addvantage) 500 mg in 250 mls @ 167 mls/hr IVPB Q24H [facility] PRN Reason: Protocol Last Admin: 03/19/18 21:30 Dose: 167 mls/hr Insulin Aspart (Novolog) 0 unit SC ACHS [facility] PRN Reason: Protocol Last Admin: 03/20/18 12:20 Dose: 10 units Insulin Detemir (Levemir) 20 unit SC HS [facility] Last Admin: 03/19/18 21:30 Dose: 20 units Lamivudine (Epivir) 150 mg PO BID [facility] PRN Reason: Protocol Last Admin: 03/20/18 09:46 Dose: 150 mg Losartan Potassium (Cozaar) 25 mg PO DAILY [facility] Last Admin: 03/20/18 09:44 Dose: 25 mg Methylprednisolone (Solu-Medrol) 40 mg IVP Q8H [facility] Last Admin: 03/20/18 06:35 Dose: 40 mg Montelukast Sodium (Singulair) 10 mg PO HS [facility] Last Admin: 03/19/18 21:29 Dose: 10 mg Pantoprazole Sodium (Protonix Ec Tab) 40 mg PO DAILY [facility] Last Admin: 03/20/18 09:44 Dose: 40 mg Raltegravir (Isentress) 400 mg PO BID [facility] PRN Reason: Protocol Last Admin: 03/20/18 09:45 Dose: 400 mg Sertraline HCl (Zoloft) 50 mg PO DAILY [facility] Last Admin: 03/20/18 09:44 Dose: 50 mg Spironolactone (Aldactone) 25 mg PO DAILY [facility] Last Admin: 03/20/18 09:44 Dose: 25 mg - Labs Labs: 03/20/18 07:00 03/20/18 07:00 - Constitutional Appears: Non-toxic, Chronically Ill - Head Exam Head Exam: NORMOCEPHALIC - Eye Exam Eye Exam: PERRL - ENT Exam ENT Exam: Mucous Membranes Dry - Neck Exam Neck Exam: absent: Lymphadenopathy - Respiratory Exam Respiratory Exam: Decreased Breath Sounds, Rhonchi - Cardiovascular Exam Cardiovascular Exam: REGULAR RHYTHM, +S1, +S2 - GI/Abdominal Exam GI & Abdominal Exam: Distended, Soft - Rectal Exam Rectal Exam: Deferred Assessment and Plan (1) Chronic obstructive lung disease Status: Acute (2) HIV (human immunodeficiency virus infection) Status: Acute - Assessment and Plan (Free Text) Assessment: iv and po rx reordered
--- NOTE | 2018-03-20 16:41 | CP.PCM.PN ---
Subjective - Date & Time of Evaluation Date of Evaluation: 03/20/18 Time of Evaluation: 10:30 - Subjective Subjective: Shortness of breath and Suicidal Ideation HPI: Patient was seen and examined this morning at bedside. Patient found sitting comfortably in no acute distress eating breakfast. Patient reports a non -productive cough and congestion. Patient reports that his breathing has improved. Patient is afebrile. PMH: HIV, COPD, DM, HTN, Pancreatitis PSH: recreational drug use, former smoker of 50 pack year history ROS: Constitutional: Patient denies fever and chills. Cardiovascular: Patient chest pain and palpitations. Respiratory: Patient reports shortness of breath and non -productive cough. Gastrointestinal: Patient denies nausea, vomiting, diarrhea. Neurological: AAO X 3, normal speech Physical Exam HEENT: Atraumatic, normocephalic, mucuous membranes moist Repiratory: Decreased breath sounds bilaterally. No rhonchi, rales or wheezing. No use of accessory muscles. Cardiovascular: +S1/ S2, regular rate and rhythm GI: Normal bowel sounds in all 4 quadrants, no tenderness, no distention Extremities: No LE edema Neurological: Alert, awake, oriented X3 Assessment: 62 year old male male with past medical history of HIV on HAART , COPD, DM, HTN with findings consistent with COPD Exacerbation. 1. COPD Exacerbation Status: Chronic - Albuterol 1 puff IH PRN - Albuterol/ Ipratropium 3 ml INH RQ6 [facility] - Alprazolam 0.25 mg PO TID - Montelukast Sodium 10 mg PO HS 2. HIV Status: Chronic - Abacavir Sulfate 300 mg PO BID - Avacavir/ Lamivudine 1 tab PO Daily - Raltegravir 1200 mg PO Daily 3. HTN Status: Chronic - Losartan Potassium 25 mg PO Daily - Spirolactone 25 mg PO Daily Objective - Vital Signs/Intake and Output Vital Signs (last 24 hours): Temp Pulse Resp BP Pulse Ox 98.2 F 82 18 113/72 99 03/20/18 16:00 03/20/18 16:00 03/20/18 16:00 03/20/18 16:00 03/20/18 16:00 Intake and Output: 03/20/18 03/20/18 06:59 18:59 Intake Total 800 Balance 800 - Medications Medications: Current Medications Abacavir Sulfate (Ziagen) 300 mg PO BID [facility] PRN Reason: Protocol Last Admin: 03/20/18 09:45 Dose: 300 mg Albuterol (Ventolin Hfa 90 Mcg/Actuation (8 G)) 1 puff IH PRN PRN PRN Reason: Shortness of Breath Albuterol/Ipratropium (Duoneb 3 Mg/0.5 Mg (3 Ml) Ud) 3 ml INH RQ6 [facility] Last Admin: 03/20/18 14:03 Dose: 3 ml Alprazolam (Xanax) 0.25 mg PO TID [facility] Stop: 03/24/18 10:01 Last Admin: 03/20/18 14:16 Dose: 0.25 mg Amlodipine Besylate (Norvasc) 5 mg PO DAILY [facility] Last Admin: 03/20/18 09:44 Dose: 5 mg Enoxaparin Sodium (Lovenox) 40 mg SC DAILY [facility] Last Admin: 03/20/18 09:45 Dose: Not Given Furosemide (Lasix) 20 mg PO DAILY [facility] Last Admin: 03/20/18 09:44 Dose: 20 mg Gabapentin (Neurontin) 300 mg PO TID [facility] Last Admin: 03/20/18 14:16 Dose: 300 mg Guaifenesin/Dextromethorphan (Robitussin Dm) 10 ml PO Q4H PRN PRN Reason: Cough Home Med (Budesonide/Formoterol Fumarate [Symbicort 160-4.5 Mcg Inhaler]) 1 aer IH BID [facility] Ceftriaxone Sodium 1 gm/ (Sodium Chloride) 100 mls @ 100 mls/hr IVPB DAILY [facility] PRN Reason: Protocol Last Admin: 03/20/18 09:46 Dose: 100 mls/hr Azithromycin (Zithromax 500mg In Ns Addvantage) 500 mg in 250 mls @ 167 mls/hr IVPB Q24H [facility] PRN Reason: Protocol Last Admin: 03/19/18 21:30 Dose: 167 mls/hr Insulin Aspart (Novolog) 0 unit SC ACHS [facility] PRN Reason: Protocol Last Admin: 03/20/18 12:20 Dose: 10 units Insulin Detemir (Levemir) 20 unit SC HS [facility] Last Admin: 03/19/18 21:30 Dose: 20 units Lamivudine (Epivir) 150 mg PO BID [facility] PRN Reason: Protocol Last Admin: 03/20/18 09:46 Dose: 150 mg Losartan Potassium (Cozaar) 25 mg PO DAILY [facility] Last Admin: 03/20/18 09:44 Dose: 25 mg Methylprednisolone (Solu-Medrol) 40 mg IVP Q8H [facility] Last Admin: 03/20/18 14:16 Dose: 40 mg Montelukast Sodium (Singulair) 10 mg PO HS [facility] Last Admin: 03/19/18 21:29 Dose: 10 mg Pantoprazole Sodium (Protonix Ec Tab) 40 mg PO DAILY [facility] Last Admin: 03/20/18 09:44 Dose: 40 mg Raltegravir (Isentress) 400 mg PO BID [facility] PRN Reason: Protocol Last Admin: 03/20/18 09:45 Dose: 400 mg Sertraline HCl (Zoloft) 50 mg PO DAILY [facility] Last Admin: 03/20/18 09:44 Dose: 50 mg Spironolactone (Aldactone) 25 mg PO DAILY [facility] Last Admin: 03/20/18 09:44 Dose: 25 mg - Labs Labs: 03/20/18 07:00 03/20/18 07:00 Assessment and Plan (1) Chronic obstructive lung disease Status: Acute (2) HIV (human immunodeficiency virus infection) Status: Acute
--- NOTE | 2018-03-20 17:26 | CP.PCM.PN ---
Subjective - Date & Time of Evaluation Date of Evaluation: 03/20/18 Time of Evaluation: 17:25 - Subjective Subjective: Patient is seen and examined Chart reviewed Continues to be dyspneic Objective - Vital Signs/Intake and Output Vital Signs (last 24 hours): Temp Pulse Resp BP Pulse Ox 98.2 F 82 18 113/72 99 03/20/18 16:00 03/20/18 16:00 03/20/18 16:00 03/20/18 16:00 03/20/18 16:00 Intake and Output: 03/20/18 03/20/18 06:59 18:59 Intake Total 800 Balance 800 - Medications Medications: Current Medications Abacavir Sulfate (Ziagen) 300 mg PO BID [facility] PRN Reason: Protocol Last Admin: 03/20/18 09:45 Dose: 300 mg Albuterol (Ventolin Hfa 90 Mcg/Actuation (8 G)) 1 puff IH PRN PRN PRN Reason: Shortness of Breath Albuterol/Ipratropium (Duoneb 3 Mg/0.5 Mg (3 Ml) Ud) 3 ml INH RQ6 [facility] Last Admin: 03/20/18 14:03 Dose: 3 ml Alprazolam (Xanax) 0.25 mg PO TID [facility] Stop: 03/24/18 10:01 Last Admin: 03/20/18 14:16 Dose: 0.25 mg Amlodipine Besylate (Norvasc) 5 mg PO DAILY [facility] Last Admin: 03/20/18 09:44 Dose: 5 mg Enoxaparin Sodium (Lovenox) 40 mg SC DAILY [facility] Last Admin: 03/20/18 09:45 Dose: Not Given Furosemide (Lasix) 20 mg PO DAILY [facility] Last Admin: 03/20/18 09:44 Dose: 20 mg Gabapentin (Neurontin) 300 mg PO TID [facility] Last Admin: 03/20/18 14:16 Dose: 300 mg Guaifenesin/Dextromethorphan (Robitussin Dm) 10 ml PO Q4H PRN PRN Reason: Cough Home Med (Budesonide/Formoterol Fumarate [Symbicort 160-4.5 Mcg Inhaler]) 1 aer IH BID [facility] Ceftriaxone Sodium 1 gm/ (Sodium Chloride) 100 mls @ 100 mls/hr IVPB DAILY [facility] PRN Reason: Protocol Last Admin: 03/20/18 09:46 Dose: 100 mls/hr Azithromycin (Zithromax 500mg In Ns Addvantage) 500 mg in 250 mls @ 167 mls/hr IVPB Q24H [facility] PRN Reason: Protocol Last Admin: 03/19/18 21:30 Dose: 167 mls/hr Insulin Aspart (Novolog) 0 unit SC ACHS [facility] PRN Reason: Protocol Last Admin: 03/20/18 12:20 Dose: 10 units Insulin Detemir (Levemir) 20 unit SC HS [facility] Last Admin: 03/19/18 21:30 Dose: 20 units Lamivudine (Epivir) 150 mg PO BID [facility] PRN Reason: Protocol Last Admin: 03/20/18 09:46 Dose: 150 mg Losartan Potassium (Cozaar) 25 mg PO DAILY [facility] Last Admin: 03/20/18 09:44 Dose: 25 mg Methylprednisolone (Solu-Medrol) 40 mg IVP Q8H [facility] Last Admin: 03/20/18 14:16 Dose: 40 mg Montelukast Sodium (Singulair) 10 mg PO HS [facility] Last Admin: 03/19/18 21:29 Dose: 10 mg Pantoprazole Sodium (Protonix Ec Tab) 40 mg PO DAILY [facility] Last Admin: 03/20/18 09:44 Dose: 40 mg Raltegravir (Isentress) 400 mg PO BID [facility] PRN Reason: Protocol Last Admin: 03/20/18 09:45 Dose: 400 mg Sertraline HCl (Zoloft) 50 mg PO DAILY [facility] Last Admin: 03/20/18 09:44 Dose: 50 mg Spironolactone (Aldactone) 25 mg PO DAILY [facility] Last Admin: 03/20/18 09:44 Dose: 25 mg - Labs Labs: 03/20/18 07:00 03/20/18 07:00 - Head Exam Head Exam: NORMAL INSPECTION - Eye Exam Eye Exam: Normal appearance - ENT Exam ENT Exam: Mucous Membranes Moist - Respiratory Exam Respiratory Exam: Prolonged Expiratory Phase, Rhonchi, Wheezes - Cardiovascular Exam Cardiovascular Exam: REGULAR RHYTHM, +S1, +S2 - GI/Abdominal Exam GI & Abdominal Exam: Soft, Normal Bowel Sounds - Extremities Exam Extremities Exam: Normal Inspection Assessment and Plan - Assessment and Plan (Free Text) Assessment: COPD exacerbation HIV Hypertension Diabetes IV Solu-Medrol Bronchodilators Advair 250/50 mcg 1 puff twice a day Continue antibiotics On HAART regimen Accu-Chek Insulin coverage Blood pressure control DVT/GI prophylax
[2018-03-20] MEDS: Azithromycin 500mg/250ML NS 500 MG/250 ML BAG IVPB SCH (21:30)
[2018-03-20] MEDS: Insulin Detemir 100 units/ml Vial (Levemir) SC SCH (21:31)
--- NOTE | 2018-03-20 22:24 | PN ---
DATE: 03/20/2018 FOLLOWUP SUBJECTIVE: The patient's shortness of breath is improving. He denies any retrosternal chest pain. PHYSICAL EXAMINATION: VITAL SIGNS: Blood pressure 115/72, heart rate 82, temperature 98.2, respirations 18. HEENT: Pale conjunctivae. CHEST: Bilateral rhonchi. HEART: S1, S2 regular. ABDOMEN: Soft. EXTREMITIES: No edema. LABORATORY DATA: Today's SMA-7: Sodium 138, potassium 4, chloride 102, CO2 of 29, glucose 138, BUN 36, creatinine 1. Today's hemoglobin and hematocrit 9.2 and 28.5, white count 12.3, platelet count 166,000. Blood cultures are negative after three days. ASSESSMENT: 1. Exacerbation of chronic obstructive lung disease. 2. Uncontrolled diabetes mellitus. 3. Systemic hypertension. 4. Human immunodeficiency virus positive. 5. Atypical chest pain, myocardial infarction is ruled out. 6. Diastolic left ventricular dysfunction. RECOMMENDATIONS: Continue current Aldactone 25 mg once a day, Rocephin 1 gm intravenously daily, Cozaar 25 mg once a day, Lovenox 40 mg subcutaneously once a day, Neurontin 300 mg t.i.d., Solu-Medrol 40 mg intravenously every 8 hours, Zithromax 500 mg intravenously daily. Discontinue telemetry. Beto Martínez MD
[2018-03-21] MEDS: Albuterol-Ipratrop 3 mg / 0.5 (3 ml) UD INH SCH ×4 (01:31→20:12)
[2018-03-21] MEDS: MethylPREDNISolone 40 mg Vial IVP SCH ×2 (05:15→13:30)
[2018-03-21 06:35] LABS: BASO % 0.3 % (0.0-2.0); HEMOGLOBIN 9.3 g/dL (12.0-18.0); LYMPH # 0.4 K/uL (1.0-4.3); MEAN CELL VOLUME 86.1 fL (80.0-94.0); MEAN CORPUSCULAR HEMOGLOBIN 27.4 pg (27.0-31.0); MEAN CORPUSCULAR HGB CONC 31.8 g/dL (33.0-37.0); MEAN PLATELET VOLUME 8.1 fL (7.2-11.7); MONO # 0.3 K/uL (0.0-0.8); MONO % 2.7 % (0.0-10.0); PLATELET COUNT 259 K/uL (130-400); RBC 3.41 Mil/uL (4.40-5.90); RED CELL DISTRIBUTION WIDTH 15.5 % (11.5-14.5); WHITE BLOOD COUNT 12.7 K/uL (4.8-10.8)
[2018-03-21 06:50] LABS: ALB/GLOB RATIO 1.3 (1.0-2.1); ALBUMIN 3.3 g/dL (3.5-5.0); ALT/SGPT 28 U/L (21-72); AST/SGOT 14 U/L (17-59); BLOOD UREA NITROGEN 39 mg/dL (9-20); CALCIUM 9.1 mg/dl (8.6-10.4); GFR AFRICAN-AMERICAN > 60; GFR NON-AFRICAN AMERICAN > 60
[2018-03-21 07:34] VITALS: RESP 20
[2018-03-21] MEDS: (Novolog) Insulin Aspart, Recombinant 100 u/ml 10 ml vial SC SCH ×4 (08:25→21:36)
[2018-03-21] MEDS: LIPASE/PROTEASE/AMYLASE 21,000 U ECC PO SCH ×3 (08:25→16:46)
[2018-03-21 08:30] LABS: ANISOCYTOSIS SLIGHT; HYPOCHROMIC SLIGHT; LYMPHOCYTE 2 % (20-40); MONOCYTE 1 % (0-10); NEUTROPHIL 97 % (50-75); PLATELET ESTIMATE NORMAL (NORMAL); TOTAL CELLS COUNTED 100
[2018-03-21] MEDS ORDERED: Albuterol HFA 90 mcg/actuation (8 g) INH PRN (08:49)
[2018-03-21] MEDS: Pantoprazole 40 mg EC Tab PO SCH (10:06)
[2018-03-21] MEDS: Enoxaparin 40 mg Syringe SC SCH (10:09)
--- NOTE | 2018-03-21 13:04 | CP.PCM.PN ---
Subjective - Date & Time of Evaluation Date of Evaluation: 03/21/18 Time of Evaluation: 09:00 - Subjective Subjective: less cough afeb iv rx renewed cultures reviewed t cells pending Objective - Vital Signs/Intake and Output Vital Signs (last 24 hours): Temp Pulse Resp BP Pulse Ox 98.2 F 83 20 117/77 99 03/21/18 07:33 03/21/18 07:33 03/21/18 07:33 03/21/18 10:07 03/21/18 07:33 Intake and Output: 03/21/18 03/21/18 06:59 18:59 Intake Total 400 Output Total 400 Balance 0 - Medications Medications: Current Medications Abacavir Sulfate (Ziagen) 300 mg PO BID [facility] PRN Reason: Protocol Last Admin: 03/21/18 10:06 Dose: 300 mg Albuterol (Ventolin Hfa 90 Mcg/Actuation (8 G)) 1 puff INH RQ6 PRN PRN Reason: Shortness of Breath Albuterol/Ipratropium (Duoneb 3 Mg/0.5 Mg (3 Ml) Ud) 3 ml INH RQ6 [facility] Last Admin: 03/21/18 13:02 Dose: 3 ml Alprazolam (Xanax) 0.25 mg PO TID [facility] Stop: 03/24/18 10:01 Last Admin: 03/21/18 10:06 Dose: 0.25 mg Amlodipine Besylate (Norvasc) 5 mg PO DAILY [facility] Last Admin: 03/21/18 10:06 Dose: 5 mg Enoxaparin Sodium (Lovenox) 40 mg SC DAILY [facility] Last Admin: 03/21/18 10:09 Dose: Not Given Furosemide (Lasix) 20 mg PO DAILY [facility] Last Admin: 03/21/18 10:07 Dose: 20 mg Gabapentin (Neurontin) 300 mg PO TID [facility] Last Admin: 03/21/18 10:06 Dose: 300 mg Guaifenesin/Dextromethorphan (Robitussin Dm) 10 ml PO Q4H PRN PRN Reason: Cough Home Med (Budesonide/Formoterol Fumarate [Symbicort 160-4.5 Mcg Inhaler]) 1 aer IH BID [facility] Ceftriaxone Sodium 1 gm/ (Sodium Chloride) 100 mls @ 100 mls/hr IVPB DAILY [facility] PRN Reason: Protocol Last Admin: 03/21/18 10:07 Dose: 100 mls/hr Azithromycin (Zithromax 500mg In Ns Addvantage) 500 mg in 250 mls @ 167 mls/hr IVPB Q24H [facility] PRN Reason: Protocol Last Admin: 03/20/18 21:30 Dose: 167 mls/hr Insulin Aspart (Novolog) 0 unit SC ACHS [facility] PRN Reason: Protocol Insulin Detemir (Levemir) 20 unit SC HS [facility] Last Admin: 03/20/18 21:31 Dose: 20 units Lamivudine (Epivir) 150 mg PO BID [facility] PRN Reason: Protocol Last Admin: 03/21/18 10:06 Dose: 150 mg Losartan Potassium (Cozaar) 25 mg PO DAILY [facility] Last Admin: 03/21/18 10:07 Dose: 25 mg Methylprednisolone (Solu-Medrol) 40 mg IVP Q8H [facility] Last Admin: 03/21/18 05:15 Dose: 40 mg Montelukast Sodium (Singulair) 10 mg PO HS [facility] Last Admin: 03/20/18 21:30 Dose: 10 mg Pantoprazole Sodium (Protonix Ec Tab) 40 mg PO DAILY [facility] Last Admin: 03/21/18 10:06 Dose: 40 mg Raltegravir (Isentress) 400 mg PO BID [facility] PRN Reason: Protocol Last Admin: 03/21/18 10:06 Dose: 400 mg Sertraline HCl (Zoloft) 50 mg PO DAILY [facility] Last Admin: 03/21/18 10:06 Dose: 50 mg Spironolactone (Aldactone) 25 mg PO DAILY [facility] Last Admin: 03/21/18 10:06 Dose: 25 mg - Labs Labs: 03/21/18 06:20 03/21/18 06:20 - Constitutional Appears: Non-toxic, Chronically Ill - Head Exam Head Exam: NORMOCEPHALIC - Eye Exam Eye Exam: PERRL - ENT Exam ENT Exam: Mucous Membranes Dry - Neck Exam Neck Exam: absent: Lymphadenopathy - Respiratory Exam Respiratory Exam: Decreased Breath Sounds - Cardiovascular Exam Cardiovascular Exam: REGULAR RHYTHM - GI/Abdominal Exam GI & Abdominal Exam: Distended - Rectal Exam Rectal Exam: Deferred - Exam Exam: NORMAL INSPECTION - Extremities Exam Extremities Exam: absent: Pedal Edema - Back Exam Back Exam: absent: CVA tenderness (L), CVA tenderness (R) - Neurological Exam Neurological Exam: Alert, Awake, Oriented x3 Assessment and Plan (1) Chronic obstructive lung disease Status: Acute (2) HIV (human immunodeficiency virus infection) Status: Acute - Assessment and Plan (Free Text) Assessment: cont iv rx bronchodilators
[2018-03-21 16:33] LABS: ABG ALLEN TEST POS; ARTERIAL BLOOD GAS HCO3 25.6 mmol/L (21-28); ARTERIAL BLOOD GAS O2 SAT 94.3 % (95-98); ARTERIAL BLOOD GAS PCO2 37 mm/Hg (35-45); ARTERIAL BLOOD GAS PH 7.44 (7.35-7.45); ARTERIAL BLOOD GAS PO2 62 mm/Hg (80-100); ARTERIAL BLOOD GAS TCO2 26.2 mmol/L (22-28)
--- NOTE | 2018-03-21 16:40 | CP.PCM.PN ---
Subjective - Date & Time of Evaluation Date of Evaluation: 03/21/18 Time of Evaluation: 11:25 - Subjective Subjective: Shortness of breath and suicidal ideation HPI: Patient was seen and examined this morning at bedside. Patient found sitting in chair comfortably in no acute distres. Patient reports improved cough and breathing. Patient is afebrile. Patient will be discharged today. PMH: HIV, COPD, DM, HTN, Pancreatitis PSH: recreational drug use, former smoker of 50 pack year history ROS: Constitutional: Patient denies fever and chills. Cardiovascular: Patient chest pain and palpitations. Respiratory: Patient reports shortness of breath and non -productive cough. Gastrointestinal: Patient denies nausea, vomiting, diarrhea. Neurological: AAO X 3, normal speech Physical Exam HEENT: Atraumatic, normocephalic, mucuous membranes moist Repiratory: Decreased breath sounds bilaterally. No rhonchi, rales or wheezing. No use of accessory muscles. Cardiovascular: +S1/ S2, regular rate and rhythm GI: Normal bowel sounds in all 4 quadrants, no tenderness, no distention Extremities: No LE edema Neurological: Alert, awake, oriented X3 Assessment: 62 year old male male with past medical history of HIV on HAART , COPD, DM, HTN with findings consistent with COPD Exacerbation. 1. COPD Exacerbation Status: Chronic - prednisone in tapering dose - Albuterol/ Ipratropium 3 ml INH RQ6 [facility] - Alprazolam 0.25 mg PO TID - Montelukast Sodium 10 mg PO HS 2. HIV Status: Chronic - Abacavir Sulfate 300 mg PO BID - Avacavir/ Lamivudine 1 tab PO Daily - Raltegravir 1200 mg PO Daily 3. HTN Status: Chronic - Losartan Potassium 25 mg PO Daily - Spirolactone 25 mg PO Daily Objective - Vital Signs/Intake and Output Vital Signs (last 24 hours): Temp Pulse Resp BP Pulse Ox 98.4 F 100 H 20 97/65 L 97 03/21/18 15:00 03/21/18 15:00 03/21/18 15:00 03/21/18 15:00 03/21/18 15:00 Intake and Output: 03/21/18 03/21/18 06:59 18:59 Intake Total 400 900 Output Total 400 Balance 0 900 - Medications Medications: Current Medications Abacavir Sulfate (Ziagen) 300 mg PO BID [facility] PRN Reason: Protocol Last Admin: 03/21/18 10:06 Dose: 300 mg Albuterol (Ventolin Hfa 90 Mcg/Actuation (8 G)) 1 puff INH RQ6 PRN PRN Reason: Shortness of Breath Albuterol/Ipratropium (Duoneb 3 Mg/0.5 Mg (3 Ml) Ud) 3 ml INH RQ6 [facility] Last Admin: 03/21/18 13:02 Dose: 3 ml Alprazolam (Xanax) 0.25 mg PO TID [facility] Stop: 03/24/18 10:01 Last Admin: 03/21/18 13:30 Dose: 0.25 mg Amlodipine Besylate (Norvasc) 5 mg PO DAILY [facility] Last Admin: 03/21/18 10:06 Dose: 5 mg Enoxaparin Sodium (Lovenox) 40 mg SC DAILY [facility] Last Admin: 03/21/18 10:09 Dose: Not Given Furosemide (Lasix) 20 mg PO DAILY [facility] Last Admin: 03/21/18 10:07 Dose: 20 mg Gabapentin (Neurontin) 300 mg PO TID [facility] Last Admin: 03/21/18 13:30 Dose: 300 mg Guaifenesin/Dextromethorphan (Robitussin Dm) 10 ml PO Q4H PRN PRN Reason: Cough Home Med (Budesonide/Formoterol Fumarate [Symbicort 160-4.5 Mcg Inhaler]) 1 aer IH BID [facility] Ceftriaxone Sodium 1 gm/ (Sodium Chloride) 100 mls @ 100 mls/hr IVPB DAILY [facility] PRN Reason: Protocol Last Admin: 03/21/18 10:07 Dose: 100 mls/hr Azithromycin (Zithromax 500mg In Ns Addvantage) 500 mg in 250 mls @ 167 mls/hr IVPB Q24H [facility] PRN Reason: Protocol Last Admin: 03/20/18 21:30 Dose: 167 mls/hr Insulin Aspart (Novolog) 0 unit SC ACHS [facility] PRN Reason: Protocol Insulin Detemir (Levemir) 20 unit SC HS [facility] Last Admin: 03/20/18 21:31 Dose: 20 units Lamivudine (Epivir) 150 mg PO BID [facility] PRN Reason: Protocol Last Admin: 03/21/18 10:06 Dose: 150 mg Losartan Potassium (Cozaar) 25 mg PO DAILY [facility] Last Admin: 03/21/18 10:07 Dose: 25 mg Methylprednisolone (Solu-Medrol) 40 mg IVP 12 [facility] Montelukast Sodium (Singulair) 10 mg PO HS [facility] Last Admin: 03/20/18 21:30 Dose: 10 mg Pantoprazole Sodium (Protonix Ec Tab) 40 mg PO DAILY [facility] Last Admin: 03/21/18 10:06 Dose: 40 mg Raltegravir (Isentress) 400 mg PO BID [facility] PRN Reason: Protocol Last Admin: 03/21/18 10:06 Dose: 400 mg Sertraline HCl (Zoloft) 50 mg PO DAILY [facility] Last Admin: 03/21/18 10:06 Dose: 50 mg Spironolactone (Aldactone) 25 mg PO DAILY [facility] Last Admin: 03/21/18 10:06 Dose: 25 mg - Labs Labs: 03/21/18 06:20 03/21/18 06:20 Assessment and Plan (1) Chronic obstructive lung disease Status: Acute (2) HIV (human immunodeficiency virus infection) Status: Acute
--- NOTE | 2018-03-21 18:34 | CP.PCM.PN ---
Subjective - Date & Time of Evaluation Date of Evaluation: 03/21/18 Time of Evaluation: 18:34 - Subjective Subjective: Patient seen and examined No events overnight Improved dyspnea Objective - Vital Signs/Intake and Output Vital Signs (last 24 hours): Temp Pulse Resp BP Pulse Ox 98.4 F 100 H 20 97/65 L 97 03/21/18 15:00 03/21/18 15:00 03/21/18 15:00 03/21/18 15:00 03/21/18 15:00 Intake and Output: 03/21/18 03/21/18 06:59 18:59 Intake Total 400 900 Output Total 400 Balance 0 900 - Medications Medications: Current Medications Abacavir Sulfate (Ziagen) 300 mg PO BID [facility] PRN Reason: Protocol Last Admin: 03/21/18 17:14 Dose: 300 mg Albuterol (Ventolin Hfa 90 Mcg/Actuation (8 G)) 1 puff INH RQ6 PRN PRN Reason: Shortness of Breath Albuterol/Ipratropium (Duoneb 3 Mg/0.5 Mg (3 Ml) Ud) 3 ml INH RQ6 [facility] Last Admin: 03/21/18 13:02 Dose: 3 ml Alprazolam (Xanax) 0.25 mg PO TID [facility] Stop: 03/24/18 10:01 Last Admin: 03/21/18 17:14 Dose: 0.25 mg Amlodipine Besylate (Norvasc) 5 mg PO DAILY [facility] Last Admin: 03/21/18 10:06 Dose: 5 mg Enoxaparin Sodium (Lovenox) 40 mg SC DAILY [facility] Last Admin: 03/21/18 10:09 Dose: Not Given Furosemide (Lasix) 20 mg PO DAILY [facility] Last Admin: 03/21/18 10:07 Dose: 20 mg Gabapentin (Neurontin) 300 mg PO TID [facility] Last Admin: 03/21/18 17:15 Dose: 300 mg Guaifenesin/Dextromethorphan (Robitussin Dm) 10 ml PO Q4H PRN PRN Reason: Cough Home Med (Budesonide/Formoterol Fumarate [Symbicort 160-4.5 Mcg Inhaler]) 1 aer IH BID [facility] Ceftriaxone Sodium 1 gm/ (Sodium Chloride) 100 mls @ 100 mls/hr IVPB DAILY [facility] PRN Reason: Protocol Last Admin: 03/21/18 10:07 Dose: 100 mls/hr Azithromycin (Zithromax 500mg In Ns Addvantage) 500 mg in 250 mls @ 167 mls/hr IVPB Q24H [facility] PRN Reason: Protocol Last Admin: 03/20/18 21:30 Dose: 167 mls/hr Insulin Aspart (Novolog) 0 unit SC ACHS [facility] PRN Reason: Protocol Last Admin: 03/21/18 16:45 Dose: 10 units Insulin Detemir (Levemir) 20 unit SC HS [facility] Last Admin: 03/20/18 21:31 Dose: 20 units Lamivudine (Epivir) 150 mg PO BID [facility] PRN Reason: Protocol Last Admin: 03/21/18 17:15 Dose: 150 mg Losartan Potassium (Cozaar) 25 mg PO DAILY [facility] Last Admin: 03/21/18 10:07 Dose: 25 mg Methylprednisolone (Solu-Medrol) 40 mg IVP 12 [facility] Montelukast Sodium (Singulair) 10 mg PO HS [facility] Last Admin: 03/20/18 21:30 Dose: 10 mg Pantoprazole Sodium (Protonix Ec Tab) 40 mg PO DAILY [facility] Last Admin: 03/21/18 10:06 Dose: 40 mg Raltegravir (Isentress) 400 mg PO BID [facility] PRN Reason: Protocol Last Admin: 03/21/18 17:15 Dose: 400 mg Sertraline HCl (Zoloft) 50 mg PO DAILY [facility] Last Admin: 03/21/18 10:06 Dose: 50 mg Spironolactone (Aldactone) 25 mg PO DAILY [facility] Last Admin: 03/21/18 10:06 Dose: 25 mg - Labs Labs: 03/21/18 06:20 03/21/18 06:20 - Head Exam Head Exam: NORMAL INSPECTION - Eye Exam Eye Exam: Normal appearance - ENT Exam ENT Exam: Mucous Membranes Moist - Respiratory Exam Respiratory Exam: Prolonged Expiratory Phase - Cardiovascular Exam Cardiovascular Exam: REGULAR RHYTHM - GI/Abdominal Exam GI & Abdominal Exam: Soft, Normal Bowel Sounds - Extremities Exam Extremities Exam: Normal Inspection - Neurological Exam Neurological Exam: Alert, Oriented x3 - Psychiatric Exam Psychiatric exam: Normal Affect, Normal Mood Assessment and Plan - Assessment and Plan (Free Text) Assessment: COPD exacerbation HIV Hypertension Diabetes IV Solu-Medrol Bronchodilators Advair 250/50 mcg 1 puff twice a day Continue antibiotics On HAART regimen Accu-Chek Insulin coverage Supportive care DVT/GI prophylax
[2018-03-21 19:40] LABS: % CD4 (T HELPER CELL) 33 Percent (30-61); % CD8 (SUPPRESSOR T CELL) 31 Percent (12-42); ABSOLUTE CD4 CELLS 146 Cells/mcL (490-1740); ABSOLUTE CD8 CELLS 134 Cells/mcL (180-1170); ABSOLUTE LYMPHOCYTES 436 Cells/mcL (850-3900); HELPER/SUPPRESSOR RATIO 1.09 Ratio (0.86-5.00)
[2018-03-21] MEDS: Insulin Detemir 100 units/ml Vial (Levemir) SC SCH (21:34)
[2018-03-21] MEDS: Azithromycin 500mg/250ML NS 500 MG/250 ML BAG IVPB SCH (21:34)
--- NOTE | 2018-03-21 22:59 | PN ---
DATE: 03/21/2018 FOLLOWUP SUBJECTIVE: The patient denies chest pain. He is mildly short of breath and slightly wheezing. PHYSICAL EXAMINATION: VITAL SIGNS: Blood pressure 97/65, heart rate 100, temperature 98.4, respirations 20. HEENT: Pale conjunctivae. CHEST: Bilateral rhonchi and scattered wheezing. HEART: S1, S2 are regular. EXTREMITIES: Trace leg edema. LABORATORY DATA: Today's SMA-7 is within normal limits except for glucose of 198 and BUN of 39. Today's hemoglobin and hematocrit 9.3 and 29.4, white count 12.7, platelet count 159,000. Blood culture is negative after four days. ASSESSMENT: 1. Exacerbation of chronic obstructive lung disease. 2. Systemic hypertension. 3. Atypical chest pain, myocardial infarction is ruled out. 4. Human immunodeficiency virus positive. 5. Left ventricular diastolic dysfunction. RECOMMENDATIONS: Continue Aldactone 25 mg daily, IV Rocephin 1 gm daily, Cozaar 25 mg once a day, Lasix 20 mg orally once a day, Lovenox 40 mg subcutaneous once a day, Norvasc 5 mg once a day, IV Zithromax 500 mg daily. Beto Martínez MD
[2018-03-22 00:43] VITALS: O2SAT 100
[2018-03-22] MEDS: Albuterol-Ipratrop 3 mg / 0.5 (3 ml) UD INH SCH (01:05)
[2018-03-22] MEDS: (Novolog) Insulin Aspart, Recombinant 100 u/ml 10 ml vial SC SCH ×2 (07:49→12:14)
[2018-03-22 08:06] VITALS: BP 120/74; PULSE 68; TEMP 98.2
[2018-03-22] MEDS: Pantoprazole 40 mg EC Tab PO SCH (10:14)
[2018-03-22] MEDS: LIPASE/PROTEASE/AMYLASE 21,000 U ECC PO SCH ×2 (10:15→12:14)
[2018-03-22] MEDS: Enoxaparin 40 mg Syringe SC SCH (10:17)
[2018-03-22] MEDS ORDERED: Albuterol-Ipratrop 3 mg / 0.5 (3 ml) UD INH SCH (12:00)
--- NOTE | 2018-03-22 16:24 | CP.PCM.PN ---
Subjective - Date & Time of Evaluation Date of Evaluation: 03/22/18 Time of Evaluation: 10:25 - Subjective Subjective: Patient was seen and examined this morning at bedside. Patient found sitting in chair comfortably in no acute distress. Patient is afebrile. Patient has no acute complaints. Patient will be discharged today. PMH: HIV, COPD, DM, HTN, Pancreatitis PSH: recreational drug use, former smoker of 50 pack year history ROS: Constitutional: Patient denies fever and chills. Cardiovascular: Patient chest pain and palpitations. Respiratory: Patient reports shortness of breath and non -productive cough. Gastrointestinal: Patient denies nausea, vomiting, diarrhea. Neurological: AAO X 3, normal speech Physical Exam HEENT: Atraumatic, normocephalic, mucuous membranes moist Repiratory: Decreased breath sounds bilaterally. No rhonchi, rales or wheezing. No use of accessory muscles. Cardiovascular: +S1/ S2, regular rate and rhythm GI: Normal bowel sounds in all 4 quadrants, no tenderness, no distention Extremities: No LE edema Neurological: Alert, awake, oriented X3 Assessment: 62 year old male male with past medical history of HIV on HAART , COPD, DM, HTN with findings consistent with COPD Exacerbation. 1. COPD Exacerbation Status: Chronic - prednisone - Albuterol/ Ipratropium 3 ml INH RQ6 [facility] - Alprazolam 0.25 mg PO TID - Montelukast Sodium 10 mg PO HS 2. HIV Status: Chronic - Abacavir Sulfate 300 mg PO BID - Avacavir/ Lamivudine 1 tab PO Daily - Raltegravir 1200 mg PO Daily 3. HTN Status: Chronic - Losartan Potassium 25 mg PO Daily - Spirolactone 25 mg PO Daily Objective - Vital Signs/Intake and Output Vital Signs (last 24 hours): Temp Pulse Resp BP Pulse Ox 98.2 F 68 20 120/74 100 03/22/18 08:05 03/22/18 08:05 03/22/18 08:05 03/22/18 10:17 03/22/18 08:05 Intake and Output: 03/22/18 03/22/18 06:59 18:59 Intake Total 580 Output Total 750 Balance -750 580 - Labs Labs: 03/21/18 06:20 03/21/18 06:20 Assessment and Plan (1) Chronic obstructive lung disease Status: Acute (2) HIV (human immunodeficiency virus infection) Status: Acute
[2018-03-22] MEDS ORDERED: MethylPREDNISolone 40 mg Vial IVP SCH (18:00)
--- NOTE | 2018-03-29 01:44 | CP.PCM.DIS ---
Provider - Provider Date of Admission: 03/16/18 21:02 Attending physician: Devika Graf MD Time Spent in preparation of Discharge (in minutes): 30 Hospital Course - Lab Results Lab Results: Micro Results 03/16/18 21:00 Blood Blood Culture - Final NO GROWTH AFTER 5 DAYS 03/16/18 21:00 Blood Gram Stain - Final TEST NOT PERFORMED 03/16/18 21:30 Blood Blood Culture - Final NO GROWTH AFTER 5 DAYS 03/16/18 21:30 Blood Gram Stain - Final TEST NOT PERFORMED Most Recent Lab Values WBC 12.7 K/uL (4.8-10.8) H 03/21/18 06:20 RBC 3.41 Mil/uL (4.40-5.90) L 03/21/18 06:20 Hgb 9.3 g/dL (12.0-18.0) L 03/21/18 06:20 Hct 29.4 % (35.0-51.0) L 03/21/18 06:20 MCV 86.1 fL (80.0-94.0) 03/21/18 06:20 MCH 27.4 pg (27.0-31.0) 03/21/18 06:20 MCHC 31.8 g/dL (33.0-37.0) L 03/21/18 06:20 RDW 15.5 % (11.5-14.5) H 03/21/18 06:20 Plt Count 259 K/uL (130-400) 03/21/18 06:20 MPV 8.1 fL (7.2-11.7) 03/21/18 06:20 Neut % (Auto) 94.0 % (50.0-75.0) H 03/21/18 06:20 Lymph % (Auto) 3.0 % (20.0-40.0) L 03/21/18 06:20 [place] % (Auto) 2.7 % (0.0-10.0) 03/21/18 06:20 Eos % (Auto) 0.0 % (0.0-4.0) 03/21/18 06:20 Baso % (Auto) 0.3 % (0.0-2.0) 03/21/18 06:20 Neut # (Auto) 12.0 K/uL (1.8-7.0) H 03/21/18 06:20 Lymph # (Auto) 0.4 K/uL (1.0-4.3) L 03/21/18 06:20 [place] # (Auto) 0.3 K/uL (0.0-0.8) 03/21/18 06:20 Eos # (Auto) 0.0 K/uL (0.0-0.7) 03/21/18 06:20 Baso # (Auto) 0.0 K/uL (0.0-0.2) 03/21/18 06:20 Neutrophils % (Manual) 97 % (50-75) H 03/21/18 06:20 Band Neutrophils % 1 % (0-2) 03/17/18 06:38 Lymphocytes % (Manual) 2 % (20-40) L 03/21/18 06:20 Monocytes % (Manual) 1 % (0-10) 03/21/18 06:20 Platelet Estimate Normal (NORMAL) 03/21/18 06:20 Polychromasia Slight 03/19/18 08:11 Hypochromasia (manual) Slight 03/21/18 06:20 Poikilocytosis (manual Slight 03/18/18 08:21 Anisocytosis (manual) Slight 03/21/18 06:20 Ovalocytes Slight 03/20/18 07:00 [place] Cells Slight 03/18/18 08:21 Schistocytes Slight 03/18/18 08:21 Puncture Site Rradial 03/21/18 16:25 pCO2 37 mm/Hg (35-45) 03/21/18 16:25 pO2 62 mm/Hg (80-100) L 03/21/18 16:25 HCO3 25.6 mmol/L (21-28) 03/21/18 16:25 ABG pH 7.44 (7.35-7.45) 03/21/18 16:25 ABG Total CO2 26.2 mmol/L (22-28) 03/21/18 16:25 ABG O2 Saturation 94.3 % (95-98) L 03/21/18 16:25 ABG Base Excess 1.0 mmol/L (-2.0-3.0) 03/21/18 16:25 ABG Hemoglobin 10.0 g/dL (11.7-17.4) L 03/21/18 16:25 ABG Carboxyhemoglobin 2.1 % (0.5-1.5) H 03/21/18 16:25 POC ABG HHb (Measured) 5.5 % (0.0-5.0) H 03/21/18 16:25 ABG Methemoglobin 1.1 % (0.0-3.0) 03/21/18 16:25 Narinder Test Pos 03/21/18 16:25 A-a O2 Difference 41.0 mm/Hg 03/21/18 16:25 Respiratory Index 0.7 03/21/18 16:25 Hgb O2 Saturation 91.3 % (95.0-98.0) L 03/21/18 16:25 Liter Flow 2.0 03/16/18 22:04 FiO2 21.0 % 03/21/18 16:25 Sodium 141 mmol/L (132-148) 03/21/18 06:20 Potassium 4.3 mmol/L (3.6-5.2) 03/21/18 06:20 Chloride 103 mmol/L (98-107) 03/21/18 06:20 Carbon Dioxide 28 mmol/L (22-30) 03/21/18 06:20 Anion Gap 14 (10-20) 03/21/18 06:20 BUN 39 mg/dL (9-20) H 03/21/18 06:20 Creatinine 1.0 mg/dL (0.8-1.5) 03/21/18 06:20 Est GFR ( Amer) > 60 03/21/18 06:20 Est GFR (Non-Af Amer) > 60 03/21/18 06:20 POC Glucose (mg/dL) 266 mg/dL (65-110) H 03/22/18 11:31 Random Glucose 298 mg/dL (75-110) H 03/21/18 06:20 Calcium 9.1 mg/dl (8.6-10.4) 03/21/18 06:20 Phosphorus 3.6 mg/dL (2.5-4.5) 03/17/18 06:38 Magnesium 2.2 mg/dL (1.6-2.3) 03/17/18 06:38 Total Bilirubin 0.2 mg/dL (0.2-1.3) 03/21/18 06:20 AST 14 U/L (17-59) L D 03/21/18 06:20 ALT 28 U/L (21-72) 03/21/18 06:20 Alkaline Phosphatase 57 U/L (38-126) 03/21/18 06:20 Total Creatine Kinase 21 U/L (55-170) L 03/18/18 08:21 CK-MB (Mass) 0.81 ng/mL (0.0-3.38) 03/18/18 08:21 Troponin I < 0.0120 ng/mL (0.00-0.120) 03/18/18 08:21 Total Protein 5.8 g/dL (6.3-8.3) L 03/21/18 06:20 Albumin 3.3 g/dL (3.5-5.0) L 03/21/18 06:20 Globulin 2.5 gm/dL (2.2-3.9) 03/21/18 06:20 Albumin/Globulin Ratio 1.3 (1.0-2.1) 03/21/18 06:20 Urine Color Straw (YELLOW) 03/17/18 22:43 Urine Clarity Clear (Clear) 03/17/18 22:43 Urine pH 6.0 (5.0-8.0) 03/17/18 22:43 Ur Specific [place] 1.026 (1.003-1.030) 03/17/18 22:43 Urine Protein Negative mg/dL (NEGATIVE) 03/17/18 22:43 Urine Glucose (UA) 3+ mg/dL (Normal) H 03/17/18 22:43 Urine Ketones Negative mg/dL (NEGATIVE) 03/17/18 22:43 Urine Blood Negative (NEGATIVE) 03/17/18 22:43 Urine Nitrate Negative (NEGATIVE) 03/17/18 22:43 Urine Bilirubin Negative (NEGATIVE) 03/17/18 22:43 Urine Urobilinogen Normal mg/dL (0.2-1.0) 03/17/18 22:43 Ur Leukocyte Esterase Neg Papa/uL (Negative) 03/17/18 22:43 Urine WBC (Auto) 1 /hpf (0-5) 03/17/18 22:43 Urine RBC (Auto) < 1 /hpf (0-3) 03/17/18 22:43 Ur Squamous Epith Cells < 1 /hpf (0-5) 03/17/18 22:43 Urine Opiates Screen Positive (NEGATIVE) H 03/17/18 22:43 Urine Methadone Screen Negative (NEGATIVE) 03/17/18 22:43 Ur Barbiturates Screen Negative (NEGATIVE) 03/17/18 22:43 Ur Phencyclidine Scrn Negative (NEGATIVE) 03/17/18 22:43 Ur Amphetamines Screen Negative (NEGATIVE) 03/17/18 22:43 U Benzodiazepines Scrn Positive (NEGATIVE) 03/17/18 22:43 U Oth Cocaine Metabols Negative (NEGATIVE) 03/17/18 22:43 U Cannabinoids Screen Negative (NEGATIVE) 03/17/18 22:43 Alcohol, Quantitative < 10 mg/dl (0-10) 03/16/18 19:42 Absolute Lymphs (Flow) 436 Cells/mcL (850-3900) L 03/18/18 08:21 % CD4 Cells 33 Percent (30-61) 03/18/18 08:21 Absolute CD4 Count 146 Cells/mcL (490-1740) L 03/18/18 08:21 T-Help/Suppress Ratio 1.09 Ratio (0.86-5.00) 03/18/18 08:21 % CD8 Cells 31 Percent (12-42) 03/18/18 08:21 Absolute CD8 Count 134 Cells/mcL (180-1170) L 03/18/18 08:21 T-Lymph Analys Comment See note 03/18/18 08:21 HIV-1 RNA Qnt (RT-PCR) <1.30 detected (Not Detected) H 03/18/18 08:21 - Hospital Course Hospital Course: Patient was treated with IV antibiotics IV steroids and bronchodilators. His current condition improved. Patient was initiated on HAART regimen. Patient's condition improved and is being discharged home on oxygen supplementation. Patient is advised to follow-up with PMD and pulmonary as outpatient Discharge Exam - Head Exam Head Exam: NORMOCEPHALIC - Eye Exam Eye Exam: Normal appearance - Respiratory Exam Respiratory Exam: Decreased Breath Sounds - Cardiovascular Exam Cardiovascular Exam: REGULAR RHYTHM - GI/Abdominal Exam GI & Abdominal Exam: Normal Bowel Sounds - Extremities Exam Extremities exam: normal inspection Discharge Plan - Discharge Medications Prescriptions: predniSONE [Prednisone] 10 mg PO DAILY #7 tab ALPRAZolam [Xanax] 0.25 mg PO TID #10 tab - Follow Up Plan Condition: STABLE Disposition: HOME/ ROUTINE Instructions: Exacerbation of COPD (DC), Alprazolam, Prednisone Additional Instructions: Follow up with primary medical doctor in one week. Continue home medications. Please go to emergency room if you experience new or worsening symptoms. Referrals: Wilbur Alfaro MD [Staff Provider] - Beto Martínez MD [Staff Provider] - Eduardo Thompson MD [Staff Provider] - Ольга Arellano [Medical Doctor] - Rayne Graf MD [Staff Provider] -
== END 2018-03-22 12:50 | disposition home or self-care (01) | DRG 191 ==
LOC: C.ER 18:22 → C.9E 21:02 → C.5S 21:02 → UNDOADMIN 21:02 → C.9E 21:19 → C.5S 21:31 → C.9E 21:31 → C.5S 03-18 15:19
PROVIDERS: ADMIT Internal Medicine Nephrology; ATTEND Internal Medicine Nephrology
DX: J44.1 Chronic obstructive pulmonary disease with (acute) exacerbation (principal); R45.851 Suicidal ideations; Z21 Asymptomatic human immunodeficiency virus [HIV] infection status; E11.42 Type 2 diabetes mellitus with diabetic polyneuropathy; E11.65 Type 2 diabetes mellitus with hyperglycemia; E78.00 Pure hypercholesterolemia, unspecified; F32.9 Major depressive disorder, single episode, unspecified; F41.9 Anxiety disorder, unspecified; G47.30 Sleep apnea, unspecified; I10 Essential (primary) hypertension; Z99.81 Dependence on supplemental oxygen; Z87.891 Personal history of nicotine dependence; D64.9 Anemia, unspecified; Z79.4 Long term (current) use of insulin

== ENCOUNTER 2018-03-28 21:14 | Inpatient (IN) | payer MEDICARE, MEDICAID ==
[2018-03-28 21:14] VITALS: BMI 26.6
[2018-03-28] MEDS ORDERED: Albuterol-Ipratrop 3 mg / 0.5 (3 ml) UD ONE (21:52)
[2018-03-28] MEDS ORDERED: Magnesium Sulfate 1 gm in D5W 1 GM/100 ML BAG IVPB ONE ×2 (22:12→22:13)
[2018-03-28] MEDS ORDERED: Magnesium Sulfate 1 gm in D5W 2 GM/200 ML BAG IVPB ONE (22:21)
[2018-03-28 22:23] LABS: BASO % 0.1 % (0.0-2.0); EOS % 0.2 % (0.0-4.0); LYMPH % 8.4 % (20.0-40.0); MEAN CELL VOLUME 85.8 fL (80.0-94.0); MEAN CORPUSCULAR HEMOGLOBIN 26.7 pg (27.0-31.0); MEAN CORPUSCULAR HGB CONC 31.1 g/dL (33.0-37.0); MEAN PLATELET VOLUME 8.9 fL (7.2-11.7); MONO # 0.6 K/uL (0.0-0.8); MONO % 5.2 % (0.0-10.0); NEUT # 10.3 K/uL (1.8-7.0); NEUT % 86.1 % (50.0-75.0); NRBC % 0.1 % (0.0-2.0); PLATELET COUNT 287 K/uL (130-400); RBC 3.74 Mil/uL (4.40-5.90); WHITE BLOOD COUNT 11.9 K/uL (4.8-10.8)
[2018-03-28] MEDS ORDERED: cefTRIAXone 1 gm in Water For Injection 2.1 ML IM ONE (22:31)
--- NOTE | 2018-03-28 22:40 | C.PDOC ---
History Of Present Illness 62 y/o male brought by EMS for complaints of SOB. Patient was administered Duoneb with improvement. Patient was last admitted March 18 for COPD exacerbation and is on home oxygen. Denies any other physical complaints. PCP: Dr. Parker Time Seen by Provider: 03/28/18 21:48 Chief Complaint (Nursing): Shortness Of Breath History Per: Patient History/Exam Limitations: no limitations Onset/Duration Of Symptoms: Hrs Current Symptoms Are (Timing): Still Present Current Respiratory Medications: See Home Med List Recent travel outside of the [place]: No Past Medical History Reviewed: Historical Data, Nursing Documentation, Vital Signs Vital Signs: Last Vital Signs Temp 97.7 F 03/28/18 22:43 Pulse 81 03/28/18 23:14 Resp 20 03/28/18 23:14 BP 92/64 L 03/28/18 23:14 Pulse Ox 97 03/29/18 00:20 - Medical History PMH: Anxiety, Arthritis, Asthma, Back Problems, Bronchitis, COPD (Emphysema), Diabetes (w/ Neuropathy), Emphysema, Hepatitis (C), HIV, HTN, Hypercholesterolemia, Hyperlipidemia, Pancreatitis, Pneumonia, Sleep Apnea Denies: Chronic Kidney Disease, Seizures, Sexually Transmitted Disease - [facility] Procedures ASSISTANCE WITH RESPIRATORY VENTILATION, 24-96 HRS, CPAP (01/02/17) CENTRAL VENOUS CATHETER PLACEMENT WITH GUIDANCE (10/28/14) INFLUENZA VACCINATION (09/05/14) INSERTION OF INFUSION DEV INTO SUP VENA CAVA, PERC APPROACH (09/15/16) INTRODUCE OF OTH THERAP SUBST INTO RESP TRACT, VIA OPENING (01/13/18) INTRODUCTION OF SERUM/TOX/VACCINE INTO MUSCLE, PERC APPROACH (09/15/16) SPINAL TAP (02/05/15) VACCINATION NEC (09/21/14) Family History: States: Unknown Family Hx - Social History Hx Tobacco Use: Yes Hx Alcohol Use: No Hx Substance Use: Yes - Immunization History Hx Tetanus Toxoid Vaccination: No Hx Influenza Vaccination: Yes (2016) Hx Pneumococcal Vaccination: Yes (10/2017) Review Of Systems Constitutional: Negative for: Fever, Chills Eyes: Negative for: Pain, Vision Change, Conjunctivae Inflammation ENT: Negative for: Ear Pain, Ear Discharge, Nose Pain Cardiovascular: Positive for: Palpitations, Orthopnea. Negative for: Chest Pain , Paroxysmal Noc. Dyspnea, Edema Respiratory: Positive for: Shortness of Breath, SOB with Excertion, Pleuritic Pain, Sputum, Wheezing. Negative for: Cough, Hemoptysis Gastrointestinal: Negative for: Nausea, Vomiting, Abdominal Pain, Diarrhea, Constipation, Melena Genitourinary: Negative for: Dysuria, Frequency Musculoskeletal: Negative for: Neck Pain, Shoulder Pain Skin: Negative for: Rash Neurological: Negative for: Weakness, Numbness Psych: Negative for: Anxiety, Depression Physical Exam - Physical Exam Appears: Non-toxic Skin: Normal Color, Warm, Dry, No Rash Head: Atraumatic, Normacephalic Eye(s): bilateral: Normal Inspection, PERRL, EOMI Ear(s): Bilateral: Normal Nose: Normal Oral Mucosa: Moist Tongue: Normal Appearing Lips: Normal Appearing Teeth: Normal Dentition Gingiva: Normal Appearing Throat: Normal Neck: Normal, Supple Chest: Symmetrical, No Tenderness Cardiovascular: Rhythm Regular, No Murmur Respiratory: No Decreased Breath Sounds, No Rales, Rhonchi, No Wheezing, Other ( diffuse rhonchi) Gastrointestinal/Abdominal: Soft, No Tenderness, No Distention, No Guarding, No Rebound Extremity: Normal ROM, Pedal Edema (+2), No Deformity Extremity: Bilateral: No Pedal Edema, Normal Color And Temperature, Normal ROM Pulses: Left Radial: Normal, Right Radial: Normal Neurological/Psych: Oriented x3, Normal Speech ED Course And Treatment - Laboratory Results Result Diagrams: 03/28/18 22:18 03/28/18 22:18 O2 Sat by Pulse Oximetry: 97 (RA) Pulse Ox Interpretation: Normal Critical Care Time - Critical Care Note Total Time (in mins): 35 Documented critical care: time excludes all time spent performing seperately billable procedures. Medical Decision Making Medical Decision Making: Administered IV fluids. Ordered blood work, EKG, and CXR hypoxic with sob when EMS found him arrives hypotensive - 60's / 40' . pt required and received my immediate medical attention for life threatening illness. Re-Evaluation: - For blood pressure gave 500 cc after patients blood pressure was at 70 so will give him another 500 cc. repeat BP 90's/ 6-'s. broad spectrum abx for pneumonia . 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 ekg reviewed cardiac labs reviewed - BMP: 222 Disposition Counseled Patient/Family Regarding: Diagnosis - Disposition Disposition: HOSPITALIZED Disposition Time: 00:23 Condition: GUARDED Forms: [facility] (Romanian) - Clinical Impression Clinical Impression: Chronic obstructive lung disease, Hypotension, Dyspnea, Hypercarbia, Chr obstructive pulmonary disease w/ acute lower respiratory infxn - Scribe Statement The provider has reviewed the documentation as recorded by the Moeibjenn Barrow All medical record entries made by the Moeibjenn were at my direction and personally dictated by me. I have reviewed the chart and agree that the record accurately reflects my personal performance of the history, physical exam, medical decision making, and the department course for this patient. I have also personally directed, reviewed, and agree with the discharge instructions and disposition.
[2018-03-28] MEDS ORDERED: Azithromycin 500mg/250ML NS 500 MG/250 ML BAG IVPB SCH (22:45)
[2018-03-28] MEDS ORDERED: Sodium Chloride 0.9% 500 ML IV ONE ×2 (22:47)
[2018-03-28] MEDS ORDERED: cefTRIAXone IV 1 gm in Dextros 50 ML IVPB ONE (22:50)
[2018-03-28 22:52] LABS: B-TYPE NATRIURETIC PEPTIDE 222 pg/mL (0-900)
[2018-03-28 22:54] LABS: ALB/GLOB RATIO 1.3 (1.0-2.1); ALBUMIN 4.5 g/dL (3.5-5.0); ALT/SGPT 47 U/L (21-72); AST/SGOT 50 U/L (17-59); BLOOD UREA NITROGEN 34 mg/dL (9-20); CALCIUM 9.8 mg/dl (8.6-10.4); GFR AFRICAN-AMERICAN > 60; GFR NON-AFRICAN AMERICAN 51
[2018-03-28] MEDS ORDERED: Sodium Chloride 0.9% 1,000 ML IV ONE (23:31)
[2018-03-28 23:49] LABS: LYMPHOCYTE 11 % (20-40); MONOCYTE 4 % (0-10); NEUTROPHIL 85 % (50-75); TOTAL CELLS COUNTED 100
[2018-03-28 23:50] LABS: ANISOCYTOSIS SLIGHT; PLATELET ESTIMATE NORMAL (NORMAL)
[2018-03-28 23:51] LABS: MICROCYTOSIS SLIGHT; OVALOCYTES SLIGHT
[2018-03-29] MEDS ORDERED: Sodium Chloride 0.9% 1,000 ML ONE (00:14)
[2018-03-29] MEDS ORDERED: Albuterol-Ipratrop 3 mg / 0.5 (3 ml) UD INH STA (00:31)
--- NOTE | 2018-03-29 09:28 | RAD ---
Date of service: 03/28/2018 PROCEDURE: CHEST RADIOGRAPH, 1 VIEW HISTORY: SOB COMPARISON: Portable chest 03/16/2018. FINDINGS: LUNGS: No acute pulmonary disease appreciated bilaterally. PLEURA: No pneumothorax or pleural fluid seen. CARDIOVASCULAR: Normal. OSSEOUS STRUCTURES: No significant abnormalities. VISUALIZED UPPER ABDOMEN: Normal. OTHER FINDINGS: None. IMPRESSION: No interval acute cardiopulmonary disease appreciated.
[2018-03-29] MEDS: Enoxaparin 40 mg Syringe SC SCH ×2 (09:40→09:51)
[2018-03-29] MEDS ORDERED: Fluticasone-Salmeterol 250-50mcg Diskus IH SCH (10:00)
--- NOTE | 2018-03-29 11:41 | CARD ---
APPROVED REPORT Date of service: 03/28/2018 EKG Measurement Heart [id number] <Conclusion> Sinus tachycardia Possible Left atrial enlargement Borderline ECG
[2018-03-29] MEDS ORDERED: Dextrose 50% SYRINGE Inj (50 ml) IV PRN (11:50)
[2018-03-29] MEDS ORDERED: Glucagon Recombinant 1 mg Inj IM PRN (11:50)
[2018-03-29] MEDS: Albuterol-Ipratrop 3 mg / 0.5 (3 ml) UD INH SCH ×2 (13:04→20:19)
[2018-03-29] MEDS: MethylPREDNISolone 40 mg Vial IVP SCH ×2 (14:50→21:00)
[2018-03-29] MEDS: (Novolog) Insulin Aspart, Recombinant 100 u/ml 10 ml vial SC SCH ×2 (16:26→21:56)
[2018-03-29] MEDS ORDERED: (Novolog) Insulin Aspart, Recombinant 100 u/ml 10 ml vial SC SCH (16:30)
[2018-03-29] MEDS: guaiFENesin 600 mg ER Tab PO SCH (17:29)
[2018-03-29] MEDS: Fluticasone-Salmeterol 250-50mcg Diskus IH SCH (20:21)
[2018-03-29] MEDS: Azithromycin 500 MG in Sodium Chloride 0.9% 250 ML IVPB SCH (21:00)
[2018-03-30] MEDS: Albuterol-Ipratrop 3 mg / 0.5 (3 ml) UD INH SCH ×4 (00:49→19:23)
[2018-03-30] MEDS: MethylPREDNISolone 40 mg Vial IVP SCH ×3 (05:36→22:38)
[2018-03-30] MEDS: (Novolog) Insulin Aspart, Recombinant 100 u/ml 10 ml vial SC SCH ×4 (07:00→22:39)
[2018-03-30] MEDS: Fluticasone-Salmeterol 250-50mcg Diskus IH SCH ×2 (07:47→19:23)
[2018-03-30] MEDS: guaiFENesin 600 mg ER Tab PO SCH ×2 (09:29→18:22)
[2018-03-30] MEDS: Enoxaparin 40 mg Syringe SC SCH (09:30)
[2018-03-30] MEDS ORDERED: RALTEGRAVIR POTASSIUM 600 MG PO SCH (10:00)
[2018-03-30] MEDS: cefTRIAXone IV 1 gm in Dextros 50 ML IVPB SCH (10:23)
[2018-03-30] MEDS ORDERED: Glucagon Recombinant 1 mg Inj IM PRN (11:24)
[2018-03-30] MEDS ORDERED: Dextrose 50% SYRINGE Inj (50 ml) IV PRN (11:24)
[2018-03-30] MEDS: Insulin Detemir 100 units/ml Vial (Levemir) SC SCH ×2 (11:48→22:39)
--- NOTE | 2018-03-30 17:25 | CP.PCM.CON ---
History of Present Illness - History of Present Illness History of Present Illness: reason for consultation: shortness of breath 62 year old male male with past medical history of HIV on HAART , COPD, DM, HTN, multiple prior hospitalizations for COPD exarcebation. Patient presented to the ED with complaint of SOB. Patient was seen and examined this morning at bedside. Patient was found sitting comfortably in no acute distress eating breakfast. Patient reports that he has a non-productive cough, shortness of breath and chest tightness. Patient is afebrile. Patient's CXR results showed no active pulmonary disease. PMH: HIV, COPD, DM, HTN, Pancreatitis PSH: recreational drug use, former smoker of 50 pack year history Review of Systems - Review of Systems All systems: reviewed and no additional remarkable complaints except (Shortness of breath) Past Patient History - Infectious Disease Hx of Infectious Diseases: None - Tetanus Immunizations Tetanus Immunization: Unknown - Past Medical History & Family History Past Medical History?: Yes - Past Social History Smoking Status: Former Smoker - CARDIAC Hx Cardiac Disorders: Yes Hx Hypercholesterolemia: Yes Hx Hypertension: Yes - PULMONARY Hx Chronic Obstructive Pulmonary Disease (COPD): Yes (Emphysema) - NEUROLOGICAL Hx Neurological Disorder: No Hx Seizures: No - HEENT Hx HEENT Problems: No - RENAL Hx Chronic Kidney Disease: No - ENDOCRINE/METABOLIC Hx Diabetes Mellitus Type 2: Yes - HEMATOLOGICAL/ONCOLOGICAL Hx Blood Disorders: Yes Hx Human Immunodeficiency Virus (HIV): Yes - INTEGUMENTARY Hx Dermatological Problems: No - MUSCULOSKELETAL/RHEUMATOLOGICAL Hx Arthritis: Yes - GASTROINTESTINAL Hx Gastrointestinal Disorders: Yes Hx Pancreatitis: Yes - GENITOURINARY/GYNECOLOGICAL Hx Genitourinary Disorders: No Hx Sexually Transmitted Disorders: No - PSYCHIATRIC Hx Psychophysiologic Disorder: Yes Hx Anxiety: Yes Hx Substance Use: Yes - SURGICAL HISTORY Hx Surgeries: Yes Hx Orthopedic Surgery: Yes (RT KNEE) Other/Comment: comestic surgery to face post getting kicked in face by horse - ANESTHESIA Hx Anesthesia: Yes Hx Anesthesia Reactions: No Hx Malignant Hyperthermia: No Meds Allergies/Adverse Reactions: Allergies Allergy/AdvReac Type Severity Reaction Status Date / Time No Known Allergies Allergy Verified 03/28/18 21:26 - Medications Medications: Current Medications Abacavir Sulfate (Ziagen) 300 mg PO BID [facility]URA PRN Reason: Protocol Last Admin: 03/30/18 09:30 Dose: 300 mg Albuterol/Ipratropium (Duoneb 3 Mg/0.5 Mg (3 Ml) Ud) 3 ml INH RQ6 [facility] Last Admin: 03/30/18 14:21 Dose: 3 ml Alprazolam (Xanax) 0.25 mg PO TID PRN PRN Reason: Anxiety Stop: 04/05/18 14:01 Last Admin: 03/30/18 13:43 Dose: 0.25 mg Amlodipine Besylate (Norvasc) 5 mg PO DAILY [facility] Last Admin: 03/30/18 09:29 Dose: 5 mg Dextrose (Dextrose 50% Inj) 0 ml IV STAT PRN; Protocol PRN Reason: Hypoglycemia Protocol Dextrose (Glutose 15) 0 gm PO ONCE PRN; Protocol PRN Reason: Hypoglycemia Protocol Dextrose (Dextrose 50% Inj) 0 ml IV STAT PRN; Protocol PRN Reason: Hypoglycemia Protocol Dextrose (Glutose 15) 0 gm PO ONCE PRN; Protocol PRN Reason: Hypoglycemia Protocol Enoxaparin Sodium (Lovenox) 40 mg SC DAILY [facility] Last Admin: 03/30/18 09:30 Dose: Not Given Famotidine (Pepcid) 20 mg PO DAILY [facility] Last Admin: 03/30/18 09:29 Dose: 20 mg Furosemide (Lasix) 20 mg PO DAILY [facility] Last Admin: 03/30/18 10:28 Dose: Not Given Gabapentin (Neurontin) 300 mg PO TID [facility] Last Admin: 03/30/18 13:12 Dose: 300 mg Glucagon (Glucagen Diagnostic Kit) 0 mg IM STAT PRN; Protocol PRN Reason: Hypoglycemia Protocol Glucagon (Glucagen Diagnostic Kit) 0 mg IM STAT PRN; Protocol PRN Reason: Hypoglycemia Protocol Guaifenesin (Mucinex La) 600 mg PO BID [facility] Last Admin: 03/30/18 09:29 Dose: 600 mg Home Med (Raltegravir Potassium [Isentress Hd]) 600 mg PO DAILY [facility] Azithromycin 500 mg/ Sodium (Chloride) 250 mls @ 167 mls/hr IVPB Q24H [facility] PRN Reason: Protocol Last Admin: 03/29/18 21:00 Dose: 167 mls/hr Ceftriaxone Sodium (Rocephin Iv 1 Gm Duplex) 50 mls @ 100 mls/hr IVPB DAILY [facility] PRN Reason: Protocol Last Admin: 03/30/18 10:23 Dose: 100 mls/hr Dextrose (Dextrose 5% In Water 1000 Ml) 1,000 mls @ 0 mls/hr IV .Q0M PRN; Protocol; Per Protocol PRN Reason: Hypoglycemia Protocol Insulin Aspart (Novolog) 0 unit SC ACHS [facility] PRN Reason: Protocol Last Admin: 03/30/18 16:28 Dose: 12 unit Insulin Detemir (Levemir) 15 unit SC Q12 [facility] Last Admin: 03/30/18 11:48 Dose: 15 u Losartan Potassium (Cozaar) 25 mg PO DAILY [facility] Last Admin: 03/30/18 09:29 Dose: 25 mg Methylprednisolone (Solu-Medrol) 40 mg IVP Q8 [facility] Last Admin: 03/30/18 13:12 Dose: 40 mg Montelukast Sodium (Singulair) 10 mg PO HS [facility] Last Admin: 03/29/18 21:00 Dose: 10 mg Fluticasone/Salmeterol (Advair Diskus 250/50) 1 puff IH RQ12 [facility] Last Admin: 03/30/18 07:47 Dose: Not Given Spironolactone (Aldactone) 25 mg PO DAILY [facility] Last Admin: 03/30/18 09:29 Dose: 25 mg Physical Exam - Head Exam Head Exam: ATRAUMATIC, NORMOCEPHALIC - ENT Exam ENT Exam: Mucous Membranes Moist - Respiratory Exam Respiratory Exam: Decreased Breath Sounds - Cardiovascular Exam Cardiovascular Exam: REGULAR RHYTHM - GI/Abdominal Exam GI & Abdominal Exam: Normal Bowel Sounds - Extremities Exam Extremities exam: Positive for: normal inspection Results - Vital Signs Recent Vital Signs: Last Vital Signs Temp 97.9 F 03/30/18 15:00 Pulse 86 03/30/18 15:00 Resp 20 03/30/18 15:00 BP 101/64 03/30/18 15:00 Pulse Ox 97 03/30/18 15:00 - Labs Result Diagrams: 03/28/18 22:18 03/28/18 22:18 Labs: Laboratory Results - last 24 hr 03/29/18 03/29/18 03/30/18 21:09 21:11 06:24 POC Glucose (mg/dL) 493 H* 365 H > 500 H* Hemoglobin A1c 03/30/18 03/30/18 03/30/18 10:56 11:12 16:09 POC Glucose (mg/dL) > 500 H* > 500 H* Hemoglobin A1c 10.7 H 03/30/18 16:11 POC Glucose (mg/dL) > 500 H* Hemoglobin A1c Assessment & Plan (1) COPD exacerbation Status: Acute Comment: continue nebulizer treatment. IV steroids. Antibiotics
--- NOTE | 2018-03-30 17:47 | CP.PCM.PN ---
Subjective - Date & Time of Evaluation Date of Evaluation: 03/30/18 Time of Evaluation: 17:43 - Subjective Subjective: still coughing wheesing sob Objective - Vital Signs/Intake and Output Vital Signs (last 24 hours): Temp Pulse Resp BP Pulse Ox 97.9 F 86 20 101/64 97 03/30/18 15:00 03/30/18 15:00 03/30/18 15:00 03/30/18 15:00 03/30/18 15:00 Intake and Output: 03/30/18 03/30/18 06:59 18:59 Intake Total 730 530 Output Total 1700 800 Balance -970 -270 - Medications Medications: Current Medications Abacavir Sulfate (Ziagen) 300 mg PO BID [facility] PRN Reason: Protocol Last Admin: 03/30/18 09:30 Dose: 300 mg Albuterol/Ipratropium (Duoneb 3 Mg/0.5 Mg (3 Ml) Ud) 3 ml INH RQ6 [facility] Last Admin: 03/30/18 14:21 Dose: 3 ml Alprazolam (Xanax) 0.25 mg PO TID PRN PRN Reason: Anxiety Stop: 04/05/18 14:01 Last Admin: 03/30/18 13:43 Dose: 0.25 mg Amlodipine Besylate (Norvasc) 5 mg PO DAILY [facility] Last Admin: 03/30/18 09:29 Dose: 5 mg Dextrose (Dextrose 50% Inj) 0 ml IV STAT PRN; Protocol PRN Reason: Hypoglycemia Protocol Dextrose (Glutose 15) 0 gm PO ONCE PRN; Protocol PRN Reason: Hypoglycemia Protocol Dextrose (Dextrose 50% Inj) 0 ml IV STAT PRN; Protocol PRN Reason: Hypoglycemia Protocol Dextrose (Glutose 15) 0 gm PO ONCE PRN; Protocol PRN Reason: Hypoglycemia Protocol Enoxaparin Sodium (Lovenox) 40 mg SC DAILY [facility] Last Admin: 03/30/18 09:30 Dose: Not Given Famotidine (Pepcid) 20 mg PO DAILY [facility] Last Admin: 03/30/18 09:29 Dose: 20 mg Furosemide (Lasix) 20 mg PO DAILY [facility] Last Admin: 03/30/18 10:28 Dose: Not Given Gabapentin (Neurontin) 300 mg PO TID [facility] Last Admin: 03/30/18 13:12 Dose: 300 mg Glucagon (Glucagen Diagnostic Kit) 0 mg IM STAT PRN; Protocol PRN Reason: Hypoglycemia Protocol Glucagon (Glucagen Diagnostic Kit) 0 mg IM STAT PRN; Protocol PRN Reason: Hypoglycemia Protocol Guaifenesin (Mucinex La) 600 mg PO BID [facility]PL[facility] Last Admin: 03/30/18 09:29 Dose: 600 mg Home Med (Raltegravir Potassium [Isentress Hd]) 600 mg PO DAILY [facility] Azithromycin 500 mg/ Sodium (Chloride) 250 mls @ 167 mls/hr IVPB Q24H [facility] PRN Reason: Protocol Last Admin: 03/29/18 21:00 Dose: 167 mls/hr Ceftriaxone Sodium (Rocephin Iv 1 Gm Duplex) 50 mls @ 100 mls/hr IVPB DAILY [facility] PRN Reason: Protocol Last Admin: 03/30/18 10:23 Dose: 100 mls/hr Insulin Aspart (Novolog) 0 unit SC ACHS [facility]PL[facility] PRN Reason: Protocol Last Admin: 03/30/18 16:28 Dose: 12 unit Insulin Detemir (Levemir) 15 unit SC Q12 [facility] Last Admin: 03/30/18 11:48 Dose: 15 u Losartan Potassium (Cozaar) 25 mg PO DAILY [facility] Last Admin: 03/30/18 09:29 Dose: 25 mg Methylprednisolone (Solu-Medrol) 40 mg IVP BID [facility]PL[facility] BY [facility] Montelukast Sodium (Singulair) 10 mg PO HS [facility]PL[facility] BY [facility] Last Admin: 03/29/18 21:00 Dose: 10 mg Fluticasone/Salmeterol (Advair Diskus 250/50) 1 puff IH RQ12 [facility] Last Admin: 03/30/18 07:47 Dose: Not Given Spironolactone (Aldactone) 25 mg PO DAILY [facility] Last Admin: 03/30/18 09:29 Dose: 25 mg - Labs Labs: 03/28/18 22:18 03/28/18 22:18 - Constitutional Appears: In Acute Distress - Head Exam Head Exam: NORMAL INSPECTION - Eye Exam Eye Exam: Normal appearance Pupil Exam: NORMAL ACCOMODATION - ENT Exam ENT Exam: Mucous Membranes Moist - Neck Exam Neck Exam: Full ROM - Respiratory Exam Respiratory Exam: Decreased Breath Sounds, Prolonged Expiratory Phase, Rales, Rhonchi, Wheezes - Cardiovascular Exam Cardiovascular Exam: REGULAR RHYTHM - GI/Abdominal Exam GI & Abdominal Exam: Normal Bowel Sounds - Exam Exam: NORMAL INSPECTION External exam: NORMAL EXTERNAL EXAM - Extremities Exam Extremities Exam: Normal Inspection - Back Exam Back Exam: NORMAL INSPECTION - Neurological Exam Neurological Exam: Alert, Oriented x3 - Psychiatric Exam Psychiatric exam: Normal Affect - Skin Skin Exam: Normal Color Assessment and Plan - Assessment and Plan (Free Text) Assessment: acute exa copd dm uncontroled hiv Plan: cont as per orders
[2018-03-30] MEDS: Azithromycin 500 MG in Sodium Chloride 0.9% 250 ML IVPB SCH (22:40)
[2018-03-31] MEDS: Albuterol-Ipratrop 3 mg / 0.5 (3 ml) UD INH SCH ×4 (01:21→20:12)
[2018-03-31] MEDS: Fluticasone-Salmeterol 250-50mcg Diskus IH SCH ×2 (07:49→20:11)
[2018-03-31] MEDS: (Novolog) Insulin Aspart, Recombinant 100 u/ml 10 ml vial SC SCH ×4 (08:21→21:38)
[2018-03-31] MEDS: Insulin Detemir 100 units/ml Vial (Levemir) SC SCH ×3 (09:30→21:39)
[2018-03-31] MEDS: guaiFENesin 600 mg ER Tab PO SCH ×2 (09:30→18:03)
[2018-03-31] MEDS: cefTRIAXone IV 1 gm in Dextros 50 ML IVPB SCH (09:30)
[2018-03-31] MEDS: Enoxaparin 40 mg Syringe SC SCH (09:33)
[2018-03-31] MEDS: MethylPREDNISolone 40 mg Vial IVP SCH ×2 (09:33→21:39)
--- NOTE | 2018-03-31 10:13 | CP.PCM.PN ---
Subjective - Date & Time of Evaluation Date of Evaluation: 03/31/18 Time of Evaluation: 08:45 - Subjective Subjective: patient seen and examined Still complaining of cough and shortness of breath afebrile No chest pain Objective - Vital Signs/Intake and Output Vital Signs (last 24 hours): Temp Pulse Resp BP Pulse Ox 97.9 F 62 18 108/61 100 03/31/18 07:05 03/31/18 08:00 03/31/18 07:05 03/31/18 07:05 03/31/18 07:05 Intake and Output: 03/31/18 03/31/18 06:59 18:59 Intake Total 610 Output Total 1100 Balance -490 - Medications Medications: Current Medications Abacavir Sulfate (Ziagen) 300 mg PO BID [facility] PRN Reason: Protocol Last Admin: 03/31/18 09:33 Dose: 300 mg Albuterol/Ipratropium (Duoneb 3 Mg/0.5 Mg (3 Ml) Ud) 3 ml INH RQ6 [facility] Last Admin: 03/31/18 07:49 Dose: 3 ml Alprazolam (Xanax) 0.25 mg PO TID PRN PRN Reason: Anxiety Stop: 04/05/18 14:01 Last Admin: 03/31/18 09:41 Dose: 0.25 mg Amlodipine Besylate (Norvasc) 5 mg PO DAILY [facility] Last Admin: 03/31/18 09:32 Dose: 5 mg Dextrose (Dextrose 50% Inj) 0 ml IV STAT PRN; Protocol PRN Reason: Hypoglycemia Protocol Dextrose (Glutose 15) 0 gm PO ONCE PRN; Protocol PRN Reason: Hypoglycemia Protocol Dextrose (Dextrose 50% Inj) 0 ml IV STAT PRN; Protocol PRN Reason: Hypoglycemia Protocol Dextrose (Glutose 15) 0 gm PO ONCE PRN; Protocol PRN Reason: Hypoglycemia Protocol Enoxaparin Sodium (Lovenox) 40 mg SC DAILY [facility] Last Admin: 03/31/18 09:33 Dose: Not Given Famotidine (Pepcid) 20 mg PO DAILY [facility] Last Admin: 03/30/18 09:29 Dose: 20 mg Furosemide (Lasix) 20 mg PO DAILY [facility] Last Admin: 03/31/18 09:32 Dose: Not Given Gabapentin (Neurontin) 300 mg PO TID [facility] Last Admin: 03/31/18 09:31 Dose: 300 mg Glucagon (Glucagen Diagnostic Kit) 0 mg IM STAT PRN; Protocol PRN Reason: Hypoglycemia Protocol Glucagon (Glucagen Diagnostic Kit) 0 mg IM STAT PRN; Protocol PRN Reason: Hypoglycemia Protocol Guaifenesin (Mucinex La) 600 mg PO BID [facility] Last Admin: 03/31/18 09:30 Dose: 600 mg Home Med (Raltegravir Potassium [Isentress Hd]) 600 mg PO DAILY [facility] Azithromycin 500 mg/ Sodium (Chloride) 250 mls @ 167 mls/hr IVPB Q24H [facility] PRN Reason: Protocol Last Admin: 03/30/18 22:40 Dose: 167 mls/hr Ceftriaxone Sodium (Rocephin Iv 1 Gm Duplex) 50 mls @ 100 mls/hr IVPB DAILY [facility] PRN Reason: Protocol Last Admin: 03/31/18 09:30 Dose: 100 mls/hr Insulin Aspart (Novolog) 0 unit SC ACHS [facility] PRN Reason: Protocol Last Admin: 03/31/18 08:21 Dose: 10 unit Insulin Detemir (Levemir) 15 unit SC Q12 [facility] Last Admin: 03/31/18 09:30 Dose: 15 u Losartan Potassium (Cozaar) 25 mg PO DAILY [facility] Last Admin: 03/31/18 09:33 Dose: 25 mg Methylprednisolone (Solu-Medrol) 40 mg IVP Q12 [facility] Last Admin: 03/30/18 22:38 Dose: 40 mg Montelukast Sodium (Singulair) 10 mg PO HS [facility] Last Admin: 03/30/18 22:38 Dose: 10 mg Fluticasone/Salmeterol (Advair Diskus 250/50) 1 puff IH RQ12 [facility] Last Admin: 03/31/18 07:49 Dose: Not Given Spironolactone (Aldactone) 25 mg PO DAILY [facility] Last Admin: 03/31/18 09:33 Dose: 25 mg - Labs Labs: 03/28/18 22:18 03/28/18 22:18 - Head Exam Head Exam: ATRAUMATIC, NORMOCEPHALIC - ENT Exam ENT Exam: Mucous Membranes Moist - Neck Exam Neck Exam: Normal Inspection - Respiratory Exam Respiratory Exam: Rales, Rhonchi - Cardiovascular Exam Cardiovascular Exam: REGULAR RHYTHM - GI/Abdominal Exam GI & Abdominal Exam: Soft, Normal Bowel Sounds Assessment and Plan (1) COPD exacerbation Assessment & Plan: continue nebulizer treatment and steroids Phenergan DM Continue oxygen Followup ABG and chest x-ray Status: Acute
--- NOTE | 2018-03-31 10:34 | CP.PCM.PN ---
Subjective - Date & Time of Evaluation Date of Evaluation: 03/31/18 Time of Evaluation: 10:31 - Subjective Subjective: still coughing and wheesing seen today by pulmonary bs hi Objective - Vital Signs/Intake and Output Vital Signs (last 24 hours): Temp Pulse Resp BP Pulse Ox 97.9 F 62 18 108/61 100 03/31/18 07:05 03/31/18 08:00 03/31/18 07:05 03/31/18 07:05 03/31/18 07:05 Intake and Output: 03/31/18 03/31/18 06:59 18:59 Intake Total 610 Output Total 1100 Balance -490 - Medications Medications: Current Medications Abacavir Sulfate (Ziagen) 300 mg PO BID [facility] PRN Reason: Protocol Last Admin: 03/31/18 09:33 Dose: 300 mg Albuterol/Ipratropium (Duoneb 3 Mg/0.5 Mg (3 Ml) Ud) 3 ml INH RQ6 [facility] Last Admin: 03/31/18 07:49 Dose: 3 ml Alprazolam (Xanax) 0.25 mg PO TID PRN PRN Reason: Anxiety Stop: 04/05/18 14:01 Last Admin: 03/31/18 09:41 Dose: 0.25 mg Amlodipine Besylate (Norvasc) 5 mg PO DAILY [facility] Last Admin: 03/31/18 09:32 Dose: 5 mg Dextrose (Dextrose 50% Inj) 0 ml IV STAT PRN; Protocol PRN Reason: Hypoglycemia Protocol Dextrose (Glutose 15) 0 gm PO ONCE PRN; Protocol PRN Reason: Hypoglycemia Protocol Dextrose (Dextrose 50% Inj) 0 ml IV STAT PRN; Protocol PRN Reason: Hypoglycemia Protocol Dextrose (Glutose 15) 0 gm PO ONCE PRN; Protocol PRN Reason: Hypoglycemia Protocol Enoxaparin Sodium (Lovenox) 40 mg SC DAILY [facility] Last Admin: 03/31/18 09:33 Dose: Not Given Famotidine (Pepcid) 20 mg PO DAILY [facility] Last Admin: 03/31/18 09:33 Dose: 20 mg Furosemide (Lasix) 20 mg PO DAILY [facility] Last Admin: 03/31/18 09:32 Dose: Not Given Gabapentin (Neurontin) 300 mg PO TID [facility] Last Admin: 03/31/18 09:31 Dose: 300 mg Glucagon (Glucagen Diagnostic Kit) 0 mg IM STAT PRN; Protocol PRN Reason: Hypoglycemia Protocol Glucagon (Glucagen Diagnostic Kit) 0 mg IM STAT PRN; Protocol PRN Reason: Hypoglycemia Protocol Guaifenesin (Mucinex La) 600 mg PO BID [facility] Last Admin: 03/31/18 09:30 Dose: 600 mg Home Med (Raltegravir Potassium [Isentress Hd]) 600 mg PO DAILY [facility] Azithromycin 500 mg/ Sodium (Chloride) 250 mls @ 167 mls/hr IVPB Q24H [facility] PRN Reason: Protocol Last Admin: 03/30/18 22:40 Dose: 167 mls/hr Ceftriaxone Sodium (Rocephin Iv 1 Gm Duplex) 50 mls @ 100 mls/hr IVPB DAILY [facility] PRN Reason: Protocol Last Admin: 03/31/18 09:30 Dose: 100 mls/hr Insulin Aspart (Novolog) 0 unit SC ACHS [facility] PRN Reason: Protocol Last Admin: 03/31/18 08:21 Dose: 10 unit Insulin Detemir (Levemir) 18 unit SC BID [facility] Losartan Potassium (Cozaar) 25 mg PO DAILY [facility] Last Admin: 03/31/18 09:33 Dose: 25 mg Methylprednisolone (Solu-Medrol) 40 mg IVP Q12 [facility] Last Admin: 03/30/18 22:38 Dose: 40 mg Montelukast Sodium (Singulair) 10 mg PO HS [facility] Last Admin: 03/30/18 22:38 Dose: 10 mg Fluticasone/Salmeterol (Advair Diskus 250/50) 1 puff IH RQ12 [facility] Last Admin: 03/31/18 07:49 Dose: Not Given Spironolactone (Aldactone) 25 mg PO DAILY [facility] Last Admin: 03/31/18 09:33 Dose: 25 mg - Labs Labs: 03/28/18 22:18 03/28/18 22:18 - Constitutional Appears: Non-toxic - Head Exam Head Exam: NORMAL INSPECTION - Eye Exam Eye Exam: Normal appearance - ENT Exam ENT Exam: Mucous Membranes Moist - Neck Exam Neck Exam: Full ROM - Respiratory Exam Respiratory Exam: Rhonchi, Wheezes - Cardiovascular Exam Cardiovascular Exam: REGULAR RHYTHM - GI/Abdominal Exam GI & Abdominal Exam: Soft - Extremities Exam Extremities Exam: Full ROM - Back Exam Back Exam: NORMAL INSPECTION - Neurological Exam Neurological Exam: Awake, Normal Gait, Oriented x3 - Skin Skin Exam: Normal Color Assessment and Plan - Assessment and Plan (Free Text) Assessment: acute exacerbation copd dmid uncontroled hiv Plan: as per orders
[2018-03-31] MEDS: Azithromycin 500 MG in Sodium Chloride 0.9% 250 ML IVPB SCH (21:04)
[2018-04-01] MEDS: Albuterol-Ipratrop 3 mg / 0.5 (3 ml) UD INH SCH ×3 (01:06→13:45)
[2018-04-01] MEDS: (Novolog) Insulin Aspart, Recombinant 100 u/ml 10 ml vial SC SCH ×2 (08:26→13:23)
--- NOTE | 2018-04-01 09:39 | CP.PCM.PN ---
Subjective - Date & Time of Evaluation Date of Evaluation: 04/01/18 Time of Evaluation: 09:20 - Subjective Subjective: The patient seen and examined Less cough and shortness of breath wants to go home DC patient home on prednisone, and antitussives and home oxygen Objective - Vital Signs/Intake and Output Vital Signs (last 24 hours): Temp Pulse Resp BP Pulse Ox 97.9 F 58 L 18 119/75 100 04/01/18 07:05 04/01/18 07:05 04/01/18 07:05 04/01/18 07:05 04/01/18 07:05 Intake and Output: 04/01/18 04/01/18 06:59 18:59 Intake Total 730 Output Total 1000 Balance -270 - Medications Medications: Current Medications Abacavir Sulfate (Ziagen) 300 mg PO BID [facility] PRN Reason: Protocol Last Admin: 03/31/18 18:04 Dose: 300 mg Albuterol/Ipratropium (Duoneb 3 Mg/0.5 Mg (3 Ml) Ud) 3 ml INH RQ6 [facility] Last Admin: 04/01/18 07:52 Dose: 3 ml Alprazolam (Xanax) 0.25 mg PO TID PRN PRN Reason: Anxiety Stop: 04/05/18 14:01 Last Admin: 04/01/18 01:35 Dose: 0.25 mg Amlodipine Besylate (Norvasc) 5 mg PO DAILY [facility] Last Admin: 03/31/18 09:32 Dose: 5 mg Dextrose (Dextrose 50% Inj) 0 ml IV STAT PRN; Protocol PRN Reason: Hypoglycemia Protocol Dextrose (Glutose 15) 0 gm PO ONCE PRN; Protocol PRN Reason: Hypoglycemia Protocol Dextrose (Dextrose 50% Inj) 0 ml IV STAT PRN; Protocol PRN Reason: Hypoglycemia Protocol Dextrose (Glutose 15) 0 gm PO ONCE PRN; Protocol PRN Reason: Hypoglycemia Protocol Enoxaparin Sodium (Lovenox) 40 mg SC DAILY [facility] Last Admin: 03/31/18 09:33 Dose: Not Given Famotidine (Pepcid) 20 mg PO DAILY [facility] Last Admin: 03/31/18 09:33 Dose: 20 mg Furosemide (Lasix) 20 mg PO DAILY [facility] Last Admin: 03/31/18 09:32 Dose: Not Given Gabapentin (Neurontin) 300 mg PO TID [facility] Last Admin: 03/31/18 18:03 Dose: 300 mg Glucagon (Glucagen Diagnostic Kit) 0 mg IM STAT PRN; Protocol PRN Reason: Hypoglycemia Protocol Glucagon (Glucagen Diagnostic Kit) 0 mg IM STAT PRN; Protocol PRN Reason: Hypoglycemia Protocol Guaifenesin (Mucinex La) 600 mg PO BID [facility] Last Admin: 03/31/18 18:03 Dose: 600 mg Home Med (Raltegravir Potassium [Isentress Hd]) 600 mg PO DAILY [facility] Azithromycin 500 mg/ Sodium (Chloride) 250 mls @ 167 mls/hr IVPB Q24H [facility] PRN Reason: Protocol Last Admin: 03/31/18 21:04 Dose: 167 mls/hr Ceftriaxone Sodium (Rocephin Iv 1 Gm Duplex) 50 mls @ 100 mls/hr IVPB DAILY [facility] PRN Reason: Protocol Last Admin: 03/31/18 09:30 Dose: 100 mls/hr Insulin Aspart (Novolog) 0 unit SC ACHS [facility] PRN Reason: Protocol Last Admin: 04/01/18 08:26 Dose: 4 unit Insulin Detemir (Levemir) 18 unit SC Q12 [facility] Last Admin: 03/31/18 21:39 Dose: 18 units Losartan Potassium (Cozaar) 25 mg PO DAILY [facility] Last Admin: 03/31/18 09:33 Dose: 25 mg Methylprednisolone (Solu-Medrol) 40 mg IVP Q12 [facility] Last Admin: 03/31/18 21:39 Dose: 40 mg Montelukast Sodium (Singulair) 10 mg PO HS [facility] Last Admin: 03/31/18 21:39 Dose: 10 mg Fluticasone/Salmeterol (Advair Diskus 250/50) 1 puff IH RQ12 [facility] Last Admin: 03/31/18 20:11 Dose: Not Given Spironolactone (Aldactone) 25 mg PO DAILY [facility] Last Admin: 03/31/18 09:33 Dose: 25 mg - Labs Labs: 03/28/18 22:18 03/28/18 22:18 Assessment and Plan (1) COPD exacerbation Status: Acute
[2018-04-01] MEDS: MethylPREDNISolone 40 mg Vial IVP SCH (10:15)
[2018-04-01] MEDS: guaiFENesin 600 mg ER Tab PO SCH (10:15)
[2018-04-01] MEDS: Enoxaparin 40 mg Syringe SC SCH (10:16)
[2018-04-01] MEDS: Insulin Detemir 100 units/ml Vial (Levemir) SC SCH (10:21)
[2018-04-01] MEDS: cefTRIAXone IV 1 gm in Dextros 50 ML IVPB SCH (10:21)
--- NOTE | 2018-04-01 14:23 | CP.PCM.PN ---
Subjective - Date & Time of Evaluation Date of Evaluation: 04/01/18 Time of Evaluation: 14:20 - Subjective Subjective: feels beter no cogh no wheesing anxious to go home Objective - Vital Signs/Intake and Output Vital Signs (last 24 hours): Temp Pulse Resp BP Pulse Ox 97.9 F 58 L 18 119/75 100 04/01/18 07:05 04/01/18 07:05 04/01/18 07:05 04/01/18 07:05 04/01/18 07:05 Intake and Output: 04/01/18 04/01/18 06:59 18:59 Intake Total 730 Output Total 1000 Balance -270 - Medications Medications: Current Medications Abacavir Sulfate (Ziagen) 300 mg PO BID [facility] PRN Reason: Protocol Last Admin: 04/01/18 10:15 Dose: 300 mg Albuterol/Ipratropium (Duoneb 3 Mg/0.5 Mg (3 Ml) Ud) 3 ml INH RQ6 [facility] Last Admin: 04/01/18 13:45 Dose: 3 ml Alprazolam (Xanax) 0.25 mg PO TID PRN PRN Reason: Anxiety Stop: 04/05/18 14:01 Last Admin: 04/01/18 10:20 Dose: 0.25 mg Amlodipine Besylate (Norvasc) 5 mg PO DAILY [facility] Last Admin: 04/01/18 10:16 Dose: 5 mg Dextrose (Dextrose 50% Inj) 0 ml IV STAT PRN; Protocol PRN Reason: Hypoglycemia Protocol Dextrose (Glutose 15) 0 gm PO ONCE PRN; Protocol PRN Reason: Hypoglycemia Protocol Dextrose (Dextrose 50% Inj) 0 ml IV STAT PRN; Protocol PRN Reason: Hypoglycemia Protocol Dextrose (Glutose 15) 0 gm PO ONCE PRN; Protocol PRN Reason: Hypoglycemia Protocol Enoxaparin Sodium (Lovenox) 40 mg SC DAILY [facility] Last Admin: 04/01/18 10:16 Dose: Not Given Famotidine (Pepcid) 20 mg PO DAILY [facility] Last Admin: 04/01/18 10:17 Dose: 20 mg Furosemide (Lasix) 20 mg PO DAILY [facility] Last Admin: 04/01/18 10:16 Dose: Not Given Gabapentin (Neurontin) 300 mg PO TID [facility] Last Admin: 04/01/18 13:23 Dose: 300 mg Glucagon (Glucagen Diagnostic Kit) 0 mg IM STAT PRN; Protocol PRN Reason: Hypoglycemia Protocol Glucagon (Glucagen Diagnostic Kit) 0 mg IM STAT PRN; Protocol PRN Reason: Hypoglycemia Protocol Guaifenesin (Mucinex La) 600 mg PO BID [facility] Last Admin: 04/01/18 10:15 Dose: 600 mg Home Med (Raltegravir Potassium [Isentress Hd]) 600 mg PO DAILY [facility] Azithromycin 500 mg/ Sodium (Chloride) 250 mls @ 167 mls/hr IVPB Q24H [facility] PRN Reason: Protocol Last Admin: 03/31/18 21:04 Dose: 167 mls/hr Ceftriaxone Sodium (Rocephin Iv 1 Gm Duplex) 50 mls @ 100 mls/hr IVPB DAILY [facility] PRN Reason: Protocol Last Admin: 04/01/18 10:21 Dose: 100 mls/hr Insulin Aspart (Novolog) 0 unit SC ACHS [facility] PRN Reason: Protocol Last Admin: 04/01/18 13:23 Dose: 10 unit Insulin Detemir (Levemir) 22 unit SC BID [facility] Losartan Potassium (Cozaar) 25 mg PO DAILY [facility] Last Admin: 04/01/18 10:15 Dose: 25 mg Methylprednisolone (Solu-Medrol) 40 mg IVP Q12 [facility] Last Admin: 04/01/18 10:15 Dose: 40 mg Montelukast Sodium (Singulair) 10 mg PO HS [facility] Last Admin: 03/31/18 21:39 Dose: 10 mg Fluticasone/Salmeterol (Advair Diskus 250/50) 1 puff IH RQ12 [facility] Last Admin: 03/31/18 20:11 Dose: Not Given Spironolactone (Aldactone) 25 mg PO DAILY [facility] Last Admin: 04/01/18 10:16 Dose: 25 mg - Labs Labs: 03/28/18 22:18 03/28/18 22:18 - Constitutional Appears: Non-toxic - Head Exam Head Exam: NORMAL INSPECTION - Eye Exam Eye Exam: Normal appearance Pupil Exam: NORMAL ACCOMODATION - ENT Exam ENT Exam: Normal Exam - Neck Exam Neck Exam: Normal Inspection - Respiratory Exam Respiratory Exam: Clear to Ausculation Bilateral - Cardiovascular Exam Cardiovascular Exam: REGULAR RHYTHM - GI/Abdominal Exam GI & Abdominal Exam: Normal Bowel Sounds - Exam Exam: NORMAL INSPECTION - Extremities Exam Extremities Exam: Normal Inspection - Back Exam Back Exam: NORMAL INSPECTION - Neurological Exam Neurological Exam: Alert, Normal Gait, Oriented x3 - Psychiatric Exam Psychiatric exam: Normal Affect - Skin Skin Exam: Normal Color Assessment and Plan - Assessment and Plan (Free Text) Assessment: s/p ac exacerbation copd dmid hiv Plan: discharge home cont home med f/u by his
--- NOTE | 2018-04-01 15:52 | CP.PCM.PN ---
Subjective - Date & Time of Evaluation Date of Evaluation: 04/01/18 Time of Evaluation: 15:51 - Subjective Subjective: SEEN BY DR. VELÁZQUEZ AND CLEARED FOR D/C HOME. MEDS REFILLED AND NEW RX GIVEN. PT TO F/U WITH DR. VELÁZQUEZ IN THE OFFICE. [facility] WITH [facility] PER RAMOS DOMINGUEZ. NO FURTHER ORDERS. -FOLLOW UP WITH DR. VELÁZQUEZ IN HER OFFICE WITHIN 5-7 DAYS. -CONTINUE HOME MEDICATIONS USUAL. YOUR VENTOLIN INHALER AND XANAX HAVE BEEN REFILLED. -PER DR. VELÁZQUEZ, YOU HAVE BEEN PRESCRIBED ZITHROMAX (AN ANTIBIOTIC) AND PREDNISONE (STEROID FOR YOUR BREATHING). -DO NOT TAKE LEVAQUIN. -CONTACT DR. VELÁZQUEZ FOR FURTHER QUESTIONS. Objective - Vital Signs/Intake and Output Vital Signs (last 24 hours): Temp Pulse Resp BP Pulse Ox 97.9 F 82 18 119/75 100 04/01/18 07:05 04/01/18 07:50 04/01/18 07:05 04/01/18 07:05 04/01/18 07:05 Intake and Output: 04/01/18 04/01/18 06:59 18:59 Intake Total 730 Output Total 1000 Balance -270 - Medications Medications: Current Medications Abacavir Sulfate (Ziagen) 300 mg PO BID [facility] PRN Reason: Protocol Last Admin: 04/01/18 10:15 Dose: 300 mg Albuterol/Ipratropium (Duoneb 3 Mg/0.5 Mg (3 Ml) Ud) 3 ml INH RQ6 [facility] Last Admin: 04/01/18 13:45 Dose: 3 ml Alprazolam (Xanax) 0.25 mg PO TID PRN PRN Reason: Anxiety Stop: 04/05/18 14:01 Last Admin: 04/01/18 10:20 Dose: 0.25 mg Amlodipine Besylate (Norvasc) 5 mg PO DAILY [facility] Last Admin: 04/01/18 10:16 Dose: 5 mg Dextrose (Dextrose 50% Inj) 0 ml IV STAT PRN; Protocol PRN Reason: Hypoglycemia Protocol Dextrose (Glutose 15) 0 gm PO ONCE PRN; Protocol PRN Reason: Hypoglycemia Protocol Dextrose (Dextrose 50% Inj) 0 ml IV STAT PRN; Protocol PRN Reason: Hypoglycemia Protocol Dextrose (Glutose 15) 0 gm PO ONCE PRN; Protocol PRN Reason: Hypoglycemia Protocol Enoxaparin Sodium (Lovenox) 40 mg SC DAILY [facility] Last Admin: 04/01/18 10:16 Dose: Not Given Famotidine (Pepcid) 20 mg PO DAILY [facility] Last Admin: 04/01/18 10:17 Dose: 20 mg Furosemide (Lasix) 20 mg PO DAILY [facility] Last Admin: 04/01/18 10:16 Dose: Not Given Gabapentin (Neurontin) 300 mg PO TID [facility] Last Admin: 04/01/18 13:23 Dose: 300 mg Glucagon (Glucagen Diagnostic Kit) 0 mg IM STAT PRN; Protocol PRN Reason: Hypoglycemia Protocol Glucagon (Glucagen Diagnostic Kit) 0 mg IM STAT PRN; Protocol PRN Reason: Hypoglycemia Protocol Guaifenesin (Mucinex La) 600 mg PO BID [facility] Last Admin: 04/01/18 10:15 Dose: 600 mg Home Med (Raltegravir Potassium [Isentress Hd]) 600 mg PO DAILY [facility] Azithromycin 500 mg/ Sodium (Chloride) 250 mls @ 167 mls/hr IVPB Q24H [facility] PRN Reason: Protocol Last Admin: 03/31/18 21:04 Dose: 167 mls/hr Ceftriaxone Sodium (Rocephin Iv 1 Gm Duplex) 50 mls @ 100 mls/hr IVPB DAILY [facility] PRN Reason: Protocol Last Admin: 04/01/18 10:21 Dose: 100 mls/hr Insulin Aspart (Novolog) 0 unit SC ACHS [facility] PRN Reason: Protocol Last Admin: 04/01/18 13:23 Dose: 10 unit Insulin Detemir (Levemir) 22 unit SC BID [facility] Losartan Potassium (Cozaar) 25 mg PO DAILY [facility] Last Admin: 04/01/18 10:15 Dose: 25 mg Methylprednisolone (Solu-Medrol) 40 mg IVP Q12 [facility] Last Admin: 04/01/18 10:15 Dose: 40 mg Montelukast Sodium (Singulair) 10 mg PO HS [facility] Last Admin: 03/31/18 21:39 Dose: 10 mg Fluticasone/Salmeterol (Advair Diskus 250/50) 1 puff IH RQ12 [facility] Last Admin: 03/31/18 20:11 Dose: Not Given Spironolactone (Aldactone) 25 mg PO DAILY [facility] Last Admin: 04/01/18 10:16 Dose: 25 mg - Labs Labs: 03/28/18 22:18 03/28/18 22:18
[2018-04-01 16:25] VITALS: BP 102/66; PULSE 89; RESP 20; TEMP 98.1; O2SAT 98
[2018-04-01] MEDS ORDERED: Insulin Detemir 100 units/ml Vial (Levemir) SC SCH (18:00)
== END 2018-04-01 17:13 | disposition home health service (06) | DRG 190 ==
LOC: C.ER 21:14 → C.6T 23:42
PROVIDERS: ADMIT Internal Medicine; ATTEND Internal Medicine
DX: J44.0 Chronic obstructive pulmonary disease with (acute) lower respiratory infection (principal); J18.9 Pneumonia, unspecified organism; B20 Human immunodeficiency virus [HIV] disease; J44.1 Chronic obstructive pulmonary disease with (acute) exacerbation; R09.02 Hypoxemia; R06.89 Other abnormalities of breathing; E11.40 Type 2 diabetes mellitus with diabetic neuropathy, unspecified; E11.65 Type 2 diabetes mellitus with hyperglycemia; I10 Essential (primary) hypertension; E86.0 Dehydration; E78.5 Hyperlipidemia, unspecified; G47.30 Sleep apnea, unspecified; E78.00 Pure hypercholesterolemia, unspecified; Z87.891 Personal history of nicotine dependence; Z99.81 Dependence on supplemental oxygen

== ENCOUNTER 2018-04-08 01:05 | Inpatient (IN) | payer MEDICARE, MEDICAID ==
[2018-04-08 01:13] VITALS: BMI 23.7
[2018-04-08] MEDS ORDERED: Naloxone 0.4 mg/ml Inj (Adult) IV ONE (01:13)
[2018-04-08] MEDS ORDERED: Albuterol-Ipratrop 3 mg / 0.5 (3 ml) UD INH STA ×2 (01:20→03:24)
[2018-04-08 01:31] LABS: BASO % 0.3 % (0.0-2.0); EOS % 0.1 % (0.0-4.0); HEMOGLOBIN 9.6 g/dL (12.0-18.0); LYMPH % 6.3 % (20.0-40.0); MEAN CELL VOLUME 85.7 fL (80.0-94.0); MEAN CORPUSCULAR HEMOGLOBIN 26.9 pg (27.0-31.0); MEAN CORPUSCULAR HGB CONC 31.4 g/dL (33.0-37.0); MEAN PLATELET VOLUME 8.2 fL (7.2-11.7); MONO # 0.6 K/uL (0.0-0.8); MONO % 3.7 % (0.0-10.0); NEUT # 14.3 K/uL (1.8-7.0); NEUT % 89.6 % (50.0-75.0); NRBC % 0.4 % (0.0-2.0); PLATELET COUNT 227 K/uL (130-400); RBC 3.58 Mil/uL (4.40-5.90); RED CELL DISTRIBUTION WIDTH 16.6 % (11.5-14.5); WHITE BLOOD COUNT 15.9 K/uL (4.8-10.8)
[2018-04-08 01:37] LABS: INR 1.1; PROTHROMBIN TIME 12.1 SECONDS (9.7-12.2)
[2018-04-08] MEDS ORDERED: Albuterol-Ipratrop 3 mg / 0.5 (3 ml) UD ONE ×3 (01:40→03:57)
[2018-04-08] MEDS ORDERED: Naloxone 0.4 mg/ml Inj (Adult) ONE (01:40)
[2018-04-08] MEDS ORDERED: cefTRIAXone IV 1 gm in Dextros 50 ML IVPB ONE ×2 (02:04→02:16)
[2018-04-08] MEDS ORDERED: Azithromycin 500 MG in Sodium Chloride 0.9% 250 ML IV STA (02:05)
[2018-04-08 02:09] LABS: ANISOCYTOSIS SLIGHT; BANDS 1 % (0-2); LYMPHOCYTE 7 % (20-40); MONOCYTE 6 % (0-10); NEUTROPHIL 86 % (50-75); PLATELET ESTIMATE NORMAL (NORMAL); POIKILOCYTOSIS SLIGHT; TOTAL CELLS COUNTED 100
[2018-04-08 02:14] LABS: ALB/GLOB RATIO 1.1 (1.0-2.1); ALBUMIN 2.7 g/dL (3.5-5.0); ALT/SGPT 50 U/L (21-72); AST/SGOT 46 U/L (17-59); BLOOD UREA NITROGEN 20 mg/dL (9-20); GFR AFRICAN-AMERICAN > 60; GFR NON-AFRICAN AMERICAN 56
[2018-04-08 02:23] LABS: B-TYPE NATRIURETIC PEPTIDE 655 pg/mL (0-900)
[2018-04-08] MEDS ORDERED: Potassium Chloride 10 mEq ER Tab PO STA (02:51)
[2018-04-08] MEDS ORDERED: Sodium Chloride 0.9% 1,000 ML IV SCH (03:00)
[2018-04-08] MEDS ORDERED: Potassium Chloride 10 mEq ER Tab PO ONE (03:06)
[2018-04-08] MEDS ORDERED: Sodium Chloride 0.9% 1,000 ML ONE (03:07)
--- NOTE | 2018-04-08 03:23 | C.PDOC ---
History Of Present Illness 62 year old male presents to the ER via EMS for a complaint of SOB. Patient has a Hx of interstitial lung disease and was admitted from 03/28-, he was also admitted [place] [facility] [place] 04/06 but was asked to leave due to his confrontational behavior. Patient is well known for ongoing heroin abuse. Denies fever, chills, or chest pain. Time Seen by Provider: 04/08/18 01:11 Chief Complaint (Nursing): Shortness Of Breath History Per: Patient History/Exam Limitations: no limitations Onset/Duration Of Symptoms: Hrs Current Symptoms Are (Timing): Still Present Associated Symptoms: denies: Fever, Chills, Chest Pain Reports Recently: Hospitalized Past Medical History Reviewed: Historical Data, Nursing Documentation, Vital Signs Vital Signs: Last Vital Signs Temp 98.9 F 04/08/18 01:58 Pulse 109 H 04/08/18 04:15 Resp 16 04/08/18 04:15 BP 87/55 L 04/08/18 04:15 Pulse Ox 94 L 04/08/18 05:21 - Medical History PMH: Anxiety, Arthritis, Asthma, Back Problems, Bronchitis, COPD (Emphysema), Diabetes (w/ Neuropathy), Emphysema, Hepatitis (C), HIV, HTN, Hypercholesterolemia, Hyperlipidemia, Pancreatitis, Pneumonia, Sleep Apnea Denies: Chronic Kidney Disease, Seizures, Sexually Transmitted Disease - [facility] Procedures ASSISTANCE WITH RESPIRATORY VENTILATION, 24-96 HRS, CPAP (01/02/17) CENTRAL VENOUS CATHETER PLACEMENT WITH GUIDANCE (10/28/14) INFLUENZA VACCINATION (09/05/14) INSERTION OF INFUSION DEV INTO SUP VENA CAVA, PERC APPROACH (09/15/16) INTRODUCE OF OTH THERAP SUBST INTO RESP TRACT, VIA OPENING (01/13/18) INTRODUCTION OF SERUM/TOX/VACCINE INTO MUSCLE, PERC APPROACH (09/15/16) SPINAL TAP (02/05/15) VACCINATION NEC (09/21/14) Family History: States: Unknown Family Hx - Social History Hx Tobacco Use: Yes Hx Alcohol Use: No Hx Substance Use: Yes - Immunization History Hx Tetanus Toxoid Vaccination: No Hx Influenza Vaccination: Yes (2016) Hx Pneumococcal Vaccination: Yes (10/2017) Review Of Systems Constitutional: Negative for: Fever, Chills Cardiovascular: Negative for: Chest Pain, Palpitations Respiratory: Positive for: Shortness of Breath. Negative for: Cough Gastrointestinal: Negative for: Nausea, Vomiting Physical Exam - Physical Exam Appears: Chronically Ill, Other (Moderate SOB) Skin: Normal Color, Warm, Dry Head: Atraumatic, Normacephalic Eye(s): bilateral: Other (Pin point pupils) Oral Mucosa: Moist Neck: Normal, Supple Chest: Symmetrical, No Tenderness Cardiovascular: Rhythm Regular Respiratory: No Rales, Rhonchi (Scattered), Wheezing Gastrointestinal/Abdominal: Soft, No Tenderness Neurological/Psych: Oriented x3, Normal Speech ED Course And Treatment - Laboratory Results Result Diagrams: 04/08/18 01:24 04/08/18 01:24 Lab Interpretation: Abnormal (trop neg.) ECG: Interpreted By Me ECG Rhythm: Sinus Tachycardia ECG Interpretation: Normal Rate From EC O2 Sat by Pulse Oximetry: 94 Pulse Ox Interpretation: Normal - Radiology CXR: Interpreted by Me CXR Interpretation: Yes: No Acute Disease, Other (hyperinflated, interstitial lung dz) Reevaluation Time: 03:22 Reassessment Condition: Improved - Physician Consult Information Outcome Of Conversation: [id number]: d/w Dr. Jana Garcia- admitted pt 03/28-- ok to re-admit. Medical Decision Making Medical Decision Making: persistent heroine abuse and copd/emphysema Disposition Doctor Will See Patient In The: Hospital Counseled Patient/Family Regarding: Studies Performed, Diagnosis - Disposition Disposition: HOSPITALIZED Disposition Time: 03:22 Condition: GOOD - Clinical Impression Clinical Impression: Heroin abuse, Chronic obstructive pulmonary disease with (acute) exacerbation - Scribe Statement The provider has reviewed the documentation as recorded by the Scribjenn Frey All medical record entries made by the Moeibjenn were at my direction and personally dictated by me. I have reviewed the chart and agree that the record accurately reflects my personal performance of the history, physical exam, medical decision making, and the department course for this patient. I have also personally directed, reviewed, and agree with the discharge instructions and disposition.
[2018-04-08 03:52] LABS: ABG ALLEN TEST POS; ARTERIAL BLOOD GAS HCO3 26.4 mmol/L (21-28); ARTERIAL BLOOD GAS PCO2 40 mm/Hg (35-45); ARTERIAL BLOOD GAS PH 7.43 (7.35-7.45); ARTERIAL BLOOD GAS PO2 71 mm/Hg (80-100); ARTERIAL BLOOD GAS TCO2 27.7 mmol/L (22-28)
[2018-04-08] MEDS: Albuterol-Ipratrop 3 mg / 0.5 (3 ml) UD INH SCH ×5 (04:02→19:53)
[2018-04-08] MEDS ORDERED: DEXTROMETHORPHAN PO PRN (04:16)
[2018-04-08] MEDS ORDERED: GUAIFENESIN PO PRN (04:16)
[2018-04-08] MEDS: Sodium Chloride 0.9% 1,000 ML IV SCH ×2 (04:23→16:30)
[2018-04-08] MEDS: MethylPREDNISolone 40 mg Vial IVP SCH ×3 (06:58→22:26)
[2018-04-08 07:41] LABS: BARBITURATES, UR NEGATIVE (NEGATIVE); PHENCYCLIDINE, UR NEGATIVE (NEGATIVE)
[2018-04-08 07:44] LABS: SQUAMOUS EPITHIAL 1 /hpf (0-5); URINE BILIRUBIN NEGATIVE (NEGATIVE); URINE BLOOD 2+ (NEGATIVE); URINE CALCIUM OXALATE CRYSTALS RARE /hpf (<OCC); URINE CLARITY Hazy (Clear); URINE COLOR Yellow (YELLOW); URINE GLUCOSE (UA) 3+ mg/dL (Normal); URINE LEUKOCYTE ESTERASE TRACE Leu/uL (Negative); URINE PROTEIN 1+ mg/dL (NEGATIVE); URINE UROBILINOGEN NORMAL mg/dL (0.2-1.0)
[2018-04-08 08:51] LABS: BENZODIAZEPINES, UR POSITIVE (NEGATIVE); OPIATES, UR POSITIVE (NEGATIVE)
--- NOTE | 2018-04-08 09:30 | RAD ---
Date of service: 04/08/2018 PROCEDURE: CHEST RADIOGRAPH, 1 VIEW HISTORY: SOB COMPARISON: Portable chest 03/28/2018. FINDINGS: LUNGS: Clear. PLEURA: No pneumothorax or pleural fluid seen. CARDIOVASCULAR: Normal. OSSEOUS STRUCTURES: No significant abnormalities. VISUALIZED UPPER ABDOMEN: Normal. OTHER FINDINGS: None. IMPRESSION: No interval acute cardiopulmonary disease appreciated.
[2018-04-08] MEDS ORDERED: Home Med 1 UNIT (Budesonide/Formoterol Fumarate [Symbicort 160-4.5 Mcg Inhaler] 1 AER) IH SCH (10:00)
[2018-04-08] MEDS ORDERED: Home Med 1 UNIT (Lipase/Protease/Amylase [Creon Dr 12,000 Units Capsule] 1 EACH) PO SCH (10:00)
[2018-04-08] MEDS ORDERED: RALTEGRAVIR POTASSIUM 600 MG PO SCH (10:00)
[2018-04-08] MEDS ORDERED: Fluticasone-Salmeterol 250-50mcg Diskus IH SCH (10:30)
--- NOTE | 2018-04-08 10:52 | CP.PCM.HP ---
History of Present Illness - History of Present Illness History of Present Illness: pt came sob whesing coughing Present on Admission - Present on Admission Any Indicators Present on Admission: No Review of Systems - Review of Systems Systems not reviewed;Unavailable: Acuity of Condition, Respiratory Distress - Constitutional Constitutional: Fatigue - EENT Eyes: As Per HPI Ears: As Per HPI Nose/Mouth/Throat: As Per HPI - Cardiovascular Cardiovascular: Dyspnea, Dyspnea on Exertion - Respiratory Respiratory: Cough, Dyspnea, Wheezing, Chest Congestion, Excessive Mucous Production, Pain with Coughing - Gastrointestinal Gastrointestinal: As Per HPI - Genitourinary Genitourinary: As Per HPI - Reproductive: Male Reproductive:Male: As Per HPI - Musculoskeletal Musculoskeletal: As Per HPI - Psychiatric Psychiatric: As Per HPI - Endocrine Endocrine: As Per HPI - Hematologic/Lymphatic Hematologic: As Per HPI Past Patient History - Infectious Disease Hx of Infectious Diseases: None - Tetanus Immunizations Tetanus Immunization: Unknown - Past Medical History & Family History Past Medical History?: Yes - Past Social History Smoking Status: Former Smoker - CARDIAC Hx Hypercholesterolemia: Yes Hx Hypertension: Yes - PULMONARY Hx Asthma: Yes Hx Bronchitis: Yes Hx Chronic Obstructive Pulmonary Disease (COPD): Yes (Emphysema) Hx Emphysema: Yes Hx Pneumonia: Yes Hx Sleep Apnea: Yes - NEUROLOGICAL Hx Seizures: No - HEENT Hx HEENT Problems: No - RENAL Hx Chronic Kidney Disease: No - ENDOCRINE/METABOLIC Hx Diabetes Mellitus Type 2: Yes - HEMATOLOGICAL/ONCOLOGICAL Hx Human Immunodeficiency Virus (HIV): Yes - INTEGUMENTARY Hx Dermatological Problems: No - MUSCULOSKELETAL/RHEUMATOLOGICAL Hx Arthritis: Yes - GASTROINTESTINAL Hx Pancreatitis: Yes - GENITOURINARY/GYNECOLOGICAL Hx Sexually Transmitted Disorders: No - PSYCHIATRIC Hx Anxiety: Yes Hx Substance Use: Yes - SURGICAL HISTORY Hx Surgeries: Yes Hx Orthopedic Surgery: Yes (RT KNEE) Other/Comment: comestic surgery to face post getting kicked in face by horse - ANESTHESIA Hx Anesthesia: Yes Hx Anesthesia Reactions: No Hx Malignant Hyperthermia: No Meds Allergies/Adverse Reactions: Allergies Allergy/AdvReac Type Severity Reaction Status Date / Time No Known Allergies Allergy Verified 04/08/18 01:15 Physical Exam - Constitutional Appears: In Acute Distress - Head Exam Head Exam: ATRAUMATIC - Eye Exam Eye Exam: Normal appearance Pupil Exam: NORMAL ACCOMODATION - ENT Exam ENT Exam: Mucous Membranes Moist - Neck Exam Neck exam: Positive for: Full Rom - Respiratory Exam Respiratory Exam: Accessory Muscle Use, Rhonchi, Wheezes - Cardiovascular Exam Cardiovascular Exam: REGULAR RHYTHM - GI/Abdominal Exam GI & Abdominal Exam: Normal Bowel Sounds - Rectal Exam Rectal Exam: NORMAL INSPECTION - Extremities Exam Extremities exam: Positive for: normal inspection - Back Exam Back exam: NORMAL INSPECTION - Neurological Exam Neurological exam: Alert, Normal Gait, Oriented x3 - Psychiatric Exam Psychiatric exam: Normal Affect - Skin Skin Exam: Normal Color Results - Vital Signs Recent Vital Signs: Last Vital Signs Temp 98.3 F 04/08/18 07:40 Pulse 111 H 04/08/18 07:40 Resp 20 04/08/18 07:40 BP 91/52 L 04/08/18 05:10 Pulse Ox 96 04/08/18 07:40 - Labs Result Diagrams: 04/08/18 01:24 04/08/18 01:24 Labs: Laboratory Results - last 24 hr 04/08/18 04/08/18 04/08/18 01:12 01:24 01:24 WBC 15.9 H RBC 3.58 L Hgb 9.6 L Hct 30.7 L MCV 85.7 MCH 26.9 L MCHC 31.4 L RDW 16.6 H Plt Count 227 MPV 8.2 Neut % (Auto) 89.6 H Lymph % (Auto) 6.3 L [place] % (Auto) 3.7 Eos % (Auto) 0.1 Baso % (Auto) 0.3 Neut # (Auto) 14.3 H Lymph # (Auto) 1.0 [place] # (Auto) 0.6 Eos # (Auto) 0.0 Baso # (Auto) 0.0 Neutrophils % (Manual) 86 H Band Neutrophils % 1 Lymphocytes % (Manual) 7 L Monocytes % (Manual) 6 Platelet Estimate Normal Poikilocytosis (manual Slight Anisocytosis (manual) Slight PT 12.1 INR 1.1 APTT 24 Puncture Site pCO2 pO2 HCO3 ABG pH ABG Total CO2 ABG O2 Saturation ABG Base Excess Narinder Test ABG Potassium A-a O2 Difference Respiratory Index Glucose Lactate Liter Flow FiO2 Sodium Potassium Chloride Carbon Dioxide Anion Gap BUN Creatinine Est GFR ( Amer) Est GFR (Non-Af Amer) POC Glucose (mg/dL) 124 H Random Glucose Calcium Total Bilirubin AST ALT Alkaline Phosphatase Total Creatine Kinase Troponin I NT-Pro-B Natriuret Pep Total Protein Albumin Globulin Albumin/Globulin Ratio Arterial Blood Potassium Urine Color Urine Clarity Urine pH Ur Specific [place] Urine Protein Urine Glucose (UA) Urine Ketones Urine Blood Urine Nitrate Urine Bilirubin Urine Urobilinogen Ur Leukocyte Esterase Urine WBC (Auto) Urine RBC (Auto) Ur Squamous Epith Cells Calcium Oxalate Crystal Urine Yeast (Budding) Urine Opiates Screen Urine Methadone Screen Ur Barbiturates Screen Ur Phencyclidine Scrn Ur Amphetamines Screen U Benzodiazepines Scrn U Oth Cocaine Metabols U Cannabinoids Screen Alcohol, Quantitative 04/08/18 04/08/18 04/08/18 01:24 03:45 06:17 WBC RBC Hgb Hct MCV MCH MCHC RDW Plt Count MPV Neut % (Auto) Lymph % (Auto) [place] % (Auto) Eos % (Auto) Baso % (Auto) Neut # (Auto) Lymph # (Auto) [place] # (Auto) Eos # (Auto) Baso # (Auto) Neutrophils % (Manual) Band Neutrophils % Lymphocytes % (Manual) Monocytes % (Manual) Platelet Estimate Poikilocytosis (manual Anisocytosis (manual) PT INR APTT Puncture Site Rr pCO2 40 pO2 71 L HCO3 26.4 ABG pH 7.43 ABG Total CO2 27.7 ABG O2 Saturation 97.0 ABG Base Excess 2.0 Narinder Test Pos ABG Potassium 3.2 L A-a O2 Difference 79.0 Respiratory Index 1.1 Glucose 172 H Lactate 0.9 Liter Flow 2.0 FiO2 28.0 Sodium 147 142.0 Potassium 3.0 L Chloride 114 H 109.0 H Carbon Dioxide 24 Anion Gap 12 BUN 20 Creatinine 1.3 Est GFR ( Amer) > 60 Est GFR (Non-Af Amer) 56 POC Glucose (mg/dL) 493 H* Random Glucose 95 Calcium 7.0 L Total Bilirubin 0.2 AST 46 ALT 50 Alkaline Phosphatase 75 Total Creatine Kinase Troponin I 0.0780 NT-Pro-B Natriuret Pep 655 Total Protein 5.2 L Albumin 2.7 L D Globulin 2.4 Albumin/Globulin Ratio 1.1 Arterial Blood Potassium 3.2 L Urine Color Urine Clarity Urine pH Ur Specific [place] Urine Protein Urine Glucose (UA) Urine Ketones Urine Blood Urine Nitrate Urine Bilirubin Urine Urobilinogen Ur Leukocyte Esterase Urine WBC (Auto) Urine RBC (Auto) Ur Squamous Epith Cells Calcium Oxalate Crystal Urine Yeast (Budding) Urine Opiates Screen Urine Methadone Screen Ur Barbiturates Screen Ur Phencyclidine Scrn Ur Amphetamines Screen U Benzodiazepines Scrn U Oth Cocaine Metabols U Cannabinoids Screen Alcohol, Quantitative < 10 04/08/18 04/08/18 04/08/18 07:18 07:18 10:29 WBC RBC Hgb Hct MCV MCH MCHC RDW Plt Count MPV Neut % (Auto) Lymph % (Auto) [place] % (Auto) Eos % (Auto) Baso % (Auto) Neut # (Auto) Lymph # (Auto) [place] # (Auto) Eos # (Auto) Baso # (Auto) Neutrophils % (Manual) Band Neutrophils % Lymphocytes % (Manual) Monocytes % (Manual) Platelet Estimate Poikilocytosis (manual Anisocytosis (manual) PT INR APTT Puncture Site pCO2 pO2 HCO3 ABG pH ABG Total CO2 ABG O2 Saturation ABG Base Excess Narinder Test ABG Potassium A-a O2 Difference Respiratory Index Glucose Lactate Liter Flow FiO2 Sodium Potassium Chloride Carbon Dioxide Anion Gap BUN Creatinine Est GFR ( Amer) Est GFR (Non-Af Amer) POC Glucose (mg/dL) Random Glucose Calcium Total Bilirubin AST ALT Alkaline Phosphatase Total Creatine Kinase 372 H Troponin I NT-Pro-B Natriuret Pep Total Protein Albumin Globulin Albumin/Globulin Ratio Arterial Blood Potassium Urine Color Yellow Urine Clarity Hazy Urine pH 5.0 Ur Specific [place] 1.016 Urine Protein 1+ H Urine Glucose (UA) 3+ H Urine Ketones Trace Urine Blood 2+ H Urine Nitrate Negative Urine Bilirubin Negative Urine Urobilinogen Normal Ur Leukocyte Esterase Trace Urine WBC (Auto) 3 Urine RBC (Auto) 6 H Ur Squamous Epith Cells 1 Calcium Oxalate Crystal Rare Urine Yeast (Budding) Few H Urine Opiates Screen Positive H Urine Methadone Screen Negative Ur Barbiturates Screen Negative Ur Phencyclidine Scrn Negative Ur Amphetamines Screen Negative U Benzodiazepines Scrn Positive U Oth Cocaine Metabols Negative U Cannabinoids Screen Negative Alcohol, Quantitative Assessment & Plan - Assessment and Plan (Free Text) Assessment: acute exa copd ac pnumonitis aneamia Plan: admit and as per orders - Date & Time Date: 04/08/18 Time: 10:55
[2018-04-08 11:01] LABS: CK-MB 3.87 ng/mL (0.0-3.38); TROPONIN I 0.043 ng/mL (0.00-0.120)
[2018-04-08] MEDS: Enoxaparin 40 mg Syringe SC SCH (11:13)
[2018-04-08] MEDS ORDERED: Insulin Detemir 100 units/ml Vial (Levemir) SC ONE (11:42)
[2018-04-08] MEDS ORDERED: Glucagon Recombinant 1 mg Inj IM PRN (11:44)
[2018-04-08] MEDS ORDERED: Dextrose 50% SYRINGE Inj (50 ml) IV PRN (11:44)
[2018-04-08] MEDS ORDERED: guaiFENesin 600 mg ER Tab PO PRN (12:00)
[2018-04-08] MEDS: (Novolog) Insulin Aspart, Recombinant 100 u/ml 10 ml vial SC SCH ×3 (12:11→23:15)
[2018-04-08] MEDS: Raltegravir 100 mg Chewable Tab PO SCH ×2 (12:13→19:00)
[2018-04-08] MEDS: guaiFENesin 600 mg ER Tab PO PRN (12:47)
[2018-04-09] MEDS: Albuterol-Ipratrop 3 mg / 0.5 (3 ml) UD INH SCH ×6 (00:40→19:16)
[2018-04-09] MEDS: (Novolog) Insulin Aspart, Recombinant 100 u/ml 10 ml vial SC SCH ×4 (08:23→21:59)
[2018-04-09] MEDS: Sodium Chloride 0.9% 1,000 ML IV SCH ×2 (08:29→18:13)
--- NOTE | 2018-04-09 09:01 | CP.PCM.PN ---
Subjective - Date & Time of Evaluation Date of Evaluation: 04/09/18 Time of Evaluation: 08:59 - Subjective Subjective: pt still coughing alot sob wheesing bs hi Objective - Vital Signs/Intake and Output Vital Signs (last 24 hours): Temp Pulse Resp BP Pulse Ox 98.0 F 87 18 107/63 100 04/09/18 07:00 04/09/18 07:00 04/09/18 07:00 04/09/18 07:00 04/09/18 07:00 Intake and Output: 04/09/18 04/09/18 06:59 18:59 Output Total 800 Balance -800 - Medications Medications: Current Medications Abacavir Sulfate (Ziagen) 300 mg PO BID [facility] PRN Reason: Protocol Last Admin: 04/08/18 19:00 Dose: 300 mg Albuterol/Ipratropium (Duoneb 3 Mg/0.5 Mg (3 Ml) Ud) 3 ml INH RQ4 [facility] Last Admin: 04/09/18 08:17 Dose: 3 ml Alprazolam (Xanax) 0.25 mg PO TID PRN PRN Reason: Anxiety Stop: 04/15/18 04:17 Last Admin: 04/08/18 22:30 Dose: 0.25 mg Dextrose (Dextrose 50% Inj) 0 ml IV STAT PRN; Protocol PRN Reason: Hypoglycemia Protocol Dextrose (Glutose 15) 0 gm PO ONCE PRN; Protocol PRN Reason: Hypoglycemia Protocol Enoxaparin Sodium (Lovenox) 40 mg SC DAILY [facility] Last Admin: 04/08/18 11:13 Dose: Not Given Famotidine (Pepcid) 20 mg PO DAILY [facility] Last Admin: 04/08/18 10:12 Dose: 20 mg Gabapentin (Neurontin) 300 mg PO TID [facility] Last Admin: 04/08/18 19:00 Dose: 300 mg Glucagon (Glucagen Diagnostic Kit) 0 mg IM STAT PRN; Protocol PRN Reason: Hypoglycemia Protocol Guaifenesin (Mucinex La) 600 mg PO BID PRN PRN Reason: Cough Last Admin: 04/08/18 12:47 Dose: 600 mg Sodium Chloride (Sodium Chloride 0.9%) 1,000 mls @ 80 mls/hr IV .[id number] [facility] Last Admin: 04/09/18 08:29 Dose: 80 mls/hr Ceftriaxone Sodium 1 gm/ (Sodium Chloride) 100 mls @ 100 mls/hr IVPB DAILY [facility] PRN Reason: Protocol Last Admin: 04/08/18 12:00 Dose: 100 mls/hr Dextrose (Dextrose 5% In Water 1000 Ml) 1,000 mls @ 0 mls/hr IV .Q0M PRN; Protocol; Per Protocol PRN Reason: Hypoglycemia Protocol Insulin Aspart (Novolog) 0 unit SC ACHS [facility] PRN Reason: Protocol Last Admin: 04/09/18 08:23 Dose: 6 units Insulin Detemir (Levemir) 20 unit SC BID [facility] Methylprednisolone (Solu-Medrol) 40 mg IVP DAILY [facility] Montelukast Sodium (Singulair) 10 mg PO HS [facility] Last Admin: 04/08/18 22:27 Dose: 10 mg Raltegravir (Isentress) 400 mg PO BID [facility] Last Admin: 04/08/18 19:00 Dose: 400 mg Raltegravir (Isentress Chewable) 200 mg PO BID [facility] Last Admin: 04/08/18 19:00 Dose: 200 mg Fluticasone/Salmeterol (Advair Diskus 250/50) 1 puff IH RBID [facility] - Labs Labs: 04/08/18 01:24 04/08/18 01:24 PT 12.1 SECONDS (9.7-12.2) 04/08/18 01:24 INR 1.1 04/08/18 01:24 APTT 24 SECONDS (21-34) 04/08/18 01:24 - Constitutional Appears: In Acute Distress - Head Exam Head Exam: NORMOCEPHALIC - Eye Exam Eye Exam: Normal appearance Pupil Exam: NORMAL ACCOMODATION - ENT Exam ENT Exam: Normal Exam - Respiratory Exam Respiratory Exam: Rales, Rhonchi, Wheezes, Respiratory Distress - Cardiovascular Exam Cardiovascular Exam: REGULAR RHYTHM - GI/Abdominal Exam GI & Abdominal Exam: Normal Bowel Sounds - Extremities Exam Extremities Exam: Normal Inspection - Back Exam Back Exam: NORMAL INSPECTION - Neurological Exam Neurological Exam: Alert, Normal Gait, Oriented x3 - Psychiatric Exam Psychiatric exam: Normal Affect - Skin Skin Exam: Normal Color Assessment and Plan - Assessment and Plan (Free Text) Assessment: ac exacerbation copd dmid uncontroled Plan: as per orders
[2018-04-09] MEDS: guaiFENesin 600 mg ER Tab PO PRN ×2 (10:04→18:11)
[2018-04-09] MEDS: Raltegravir 100 mg Chewable Tab PO SCH ×2 (10:05→18:13)
[2018-04-09] MEDS: MethylPREDNISolone 40 mg Vial IVP SCH (10:05)
[2018-04-09] MEDS: Insulin Detemir 100 units/ml Vial (Levemir) SC SCH ×2 (10:07→18:18)
[2018-04-09] MEDS: Enoxaparin 40 mg Syringe SC SCH (10:08)
[2018-04-09] MEDS: Fluticasone-Salmeterol 250-50mcg Diskus IH SCH (19:17)
[2018-04-09] MEDS ORDERED: Insulin Detemir 100 units/ml Vial (Levemir) SC SCH (22:00)
[2018-04-10] MEDS: Albuterol-Ipratrop 3 mg / 0.5 (3 ml) UD INH SCH ×6 (00:14→20:02)
[2018-04-10] MEDS: Sodium Chloride 0.9% 1,000 ML IV SCH ×2 (05:55→17:50)
--- NOTE | 2018-04-10 07:24 | CON ---
Copied To: Julio Paez MD Attending MD: Julio Paez MD DATE: 04/08/2018 CARDIOLOGY CONSULT PATIENT OF: Jana Garcia MD LOCATION: Presently in room 669. HISTORY OF PRESENT ILLNESS: Requested by Dr. Garcia to see this 62-year-old black male with a long history of COPD, shortness of breath, heroin abuse, hypertension, HIV, etc., apparently the staff here knows him quite well because he comes periodically to this institution. Today, he came here complaining of some shortness of breath and some highly superficial chest discomfort. Apparently, he was admitted to [facility] up to yesterday for few days, and he was discharged, was advised to leave because of not cooperating well with the medical treatment. At this point in time, he does not want to speak with me. He is complaining, but appears in no distress, whatsoever. Finally after speaking with him for several minutes, he allowed me to listen to his chest reluctantly and was not behaving well to me. PHYSICAL EXAMINATION: GENERAL: He appears to be in no acute distress. He has multiple track yi in his arms and ecchymosis, etc. He claimed it was due to using pointers, etc. VITAL SIGNS: Blood pressure is normal. Pulse is slightly elevated, about 100 or so, because he is upset. He is afebrile. LUNGS: From the cardiological view point, the lungs, he has some scattered subcrepitations due to chronic lung disease that he has had apparently for many many years. HEART: Auscultation of the heart briefly reveals normal heart sounds and minimal systolic murmur. Rest of the examination was incomplete. LABORATORY DATA: EKG basically normal with early repolarization changes. Chest x-ray, no acute disease. H and H are 9.6 and 30. WBC count was mildly elevated. Potassium was moderately low on admission at 3. Urine drug screening was positive for opiates. Impression is that cardiologically stable at this point in time. Benign EKG findings. DIAGNOSES: Chronic obstructive pulmonary disease, probably exacerbation; heroin abuse, addiction;, hypertension; etc. PLAN: Presently cardiologically stable. No reason at this point in time for any further investigation. Julio Paez MD [facility] # [id number]
[2018-04-10] MEDS: Fluticasone-Salmeterol 250-50mcg Diskus IH SCH ×2 (07:30→20:04)
[2018-04-10] MEDS: (Novolog) Insulin Aspart, Recombinant 100 u/ml 10 ml vial SC SCH ×4 (08:00→22:15)
[2018-04-10] MEDS: Enoxaparin 40 mg Syringe SC SCH (10:25)
[2018-04-10] MEDS: MethylPREDNISolone 40 mg Vial IVP SCH ×2 (10:25→10:35)
[2018-04-10] MEDS: guaiFENesin 600 mg ER Tab PO PRN (10:25)
[2018-04-10] MEDS: Raltegravir 100 mg Chewable Tab PO SCH ×2 (10:58→17:35)
--- NOTE | 2018-04-10 12:06 | CARD ---
APPROVED REPORT Date of service: 04/08/2018 EKG Measurement Heart [id number] <Conclusion> Normal sinus rhythm Early repolarization Normal ECG
--- NOTE | 2018-04-10 12:06 | CARD ---
APPROVED REPORT Date of service: 04/08/2018 EKG Measurement Heart [id number] <Conclusion> Sinus tachycardia Otherwise normal ECG
--- NOTE | 2018-04-10 12:07 | CARD ---
APPROVED REPORT Date of service: 04/08/2018 EKG Measurement Heart [id number] <Conclusion> Sinus tachycardia Otherwise normal ECG
[2018-04-10] MEDS: Insulin Detemir 100 units/ml Vial (Levemir) SC SCH ×2 (12:22→17:37)
[2018-04-10] MEDS ORDERED: Albuterol-Ipratrop 3 mg / 0.5 (3 ml) UD INH STA (13:10)
[2018-04-10 14:23] LABS: CK-MB 1.02 ng/mL (0.0-3.38)
--- NOTE | 2018-04-10 15:37 | RAD ---
Chest x-ray single frontal view History: Chest pain. Comparison: 04/08/2018 Findings: Prominent diffuse increased interstitial lung markings may represent underlying infiltrate versus edema. Clinical correlation. More patchy consolidative opacification at the left lung base. Scattered nodular densities in both lung muller. Tortuous ectatic aorta. Right hilar prominence. Degenerative changes in the spine and shoulders. Impression: Prominent diffuse increased interstitial lung markings may represent underlying infiltrate versus edema. Clinical correlation. More patchy consolidative opacification at the left lung base. Scattered nodular densities in both lung muller. Tortuous ectatic aorta. Right hilar prominence.
--- NOTE | 2018-04-10 18:03 | CP.PCM.PN ---
Subjective - Date & Time of Evaluation Date of Evaluation: 04/10/18 Time of Evaluation: 18:01 - Subjective Subjective: still coughing wheesing sob Objective - Vital Signs/Intake and Output Vital Signs (last 24 hours): Temp Pulse Resp BP Pulse Ox 98.7 F 90 20 117/76 98 04/10/18 15:00 04/10/18 15:00 04/10/18 15:00 04/10/18 15:00 04/10/18 15:00 Intake and Output: 04/10/18 04/10/18 06:59 18:59 Intake Total 720 1160 Output Total 1100 Balance -380 1160 - Medications Medications: Current Medications Abacavir Sulfate (Ziagen) 300 mg PO BID [facility] PRN Reason: Protocol Last Admin: 04/10/18 17:35 Dose: 300 mg Albuterol/Ipratropium (Duoneb 3 Mg/0.5 Mg (3 Ml) Ud) 3 ml INH RQ4 [facility] Last Admin: 04/10/18 15:27 Dose: 3 ml Alprazolam (Xanax) 0.25 mg PO TID PRN PRN Reason: Anxiety Stop: 04/15/18 04:17 Last Admin: 04/10/18 17:40 Dose: 0.25 mg Dextrose (Dextrose 50% Inj) 0 ml IV STAT PRN; Protocol PRN Reason: Hypoglycemia Protocol Dextrose (Glutose 15) 0 gm PO ONCE PRN; Protocol PRN Reason: Hypoglycemia Protocol Enoxaparin Sodium (Lovenox) 40 mg SC DAILY [facility] Last Admin: 04/10/18 10:25 Dose: Not Given Famotidine (Pepcid) 20 mg PO DAILY [facility] Last Admin: 04/10/18 10:25 Dose: 20 mg Furosemide (Lasix) 40 mg IVP STAT STA Stop: 04/10/18 17:56 Gabapentin (Neurontin) 300 mg PO TID [facility] Last Admin: 04/10/18 17:35 Dose: 300 mg Glucagon (Glucagen Diagnostic Kit) 0 mg IM STAT PRN; Protocol PRN Reason: Hypoglycemia Protocol Guaifenesin (Mucinex La) 600 mg PO BID PRN PRN Reason: Cough Last Admin: 04/10/18 10:25 Dose: 600 mg Sodium Chloride (Sodium Chloride 0.9%) 1,000 mls @ 80 mls/hr IV .[id number] [facility] Last Admin: 04/10/18 17:50 Dose: Not Given Ceftriaxone Sodium 1 gm/ (Sodium Chloride) 100 mls @ 100 mls/hr IVPB DAILY [facility] PRN Reason: Protocol Last Admin: 04/10/18 11:00 Dose: 100 mls/hr Dextrose (Dextrose 5% In Water 1000 Ml) 1,000 mls @ 0 mls/hr IV .Q0M PRN; Protocol; Per Protocol PRN Reason: Hypoglycemia Protocol Insulin Aspart (Novolog) 0 unit SC ACHS [facility] PRN Reason: Protocol Last Admin: 04/10/18 17:37 Dose: 2 units Insulin Detemir (Levemir) 20 unit SC BID [facility] Last Admin: 04/10/18 17:37 Dose: 20 units Methylprednisolone (Solu-Medrol) 40 mg IVP DAILY [facility] Last Admin: 04/10/18 10:35 Dose: Not Given Methylprednisolone (Solu-Medrol) 125 mg IV ONCE ONE Stop: 04/10/18 17:52 Montelukast Sodium (Singulair) 10 mg PO HS [facility] Last Admin: 04/09/18 22:01 Dose: 10 mg Raltegravir (Isentress) 400 mg PO BID [facility] Last Admin: 04/10/18 17:35 Dose: 400 mg Raltegravir (Isentress Chewable) 200 mg PO BID [facility] Last Admin: 04/10/18 17:35 Dose: 200 mg Fluticasone/Salmeterol (Advair Diskus 250/50) 1 puff IH RBID [facility] Last Admin: 04/10/18 07:30 Dose: 1 puff Spironolactone (Aldactone) 25 mg PO BID ONE Stop: 04/10/18 08:01 - Labs Labs: 04/08/18 01:24 04/08/18 01:24 PT 12.1 SECONDS (9.7-12.2) 04/08/18 01:24 INR 1.1 04/08/18 01:24 APTT 24 SECONDS (21-34) 04/08/18 01:24 - Constitutional Appears: Non-toxic, In Acute Distress - Head Exam Head Exam: NORMOCEPHALIC - Eye Exam Eye Exam: Normal appearance Pupil Exam: NORMAL ACCOMODATION - ENT Exam ENT Exam: Mucous Membranes Moist - Neck Exam Neck Exam: Full ROM - Respiratory Exam Respiratory Exam: Rales, Rhonchi, Wheezes, Respiratory Distress - Cardiovascular Exam Cardiovascular Exam: REGULAR RHYTHM - GI/Abdominal Exam GI & Abdominal Exam: Normal Bowel Sounds - Rectal Exam Rectal Exam: Deferred - Extremities Exam Extremities Exam: Normal Inspection - Back Exam Back Exam: NORMAL INSPECTION - Neurological Exam Neurological Exam: Normal Gait - Psychiatric Exam Psychiatric exam: Normal Mood - Skin Skin Exam: Normal Color Assessment and Plan - Assessment and Plan (Free Text) Assessment: acute ex copd pnumonitis chf dm Plan: as per orders
[2018-04-11] MEDS: guaiFENesin 600 mg ER Tab PO PRN ×2 (06:25→10:31)
[2018-04-11] MEDS: Albuterol-Ipratrop 3 mg / 0.5 (3 ml) UD INH SCH ×6 (07:25→23:44)
[2018-04-11] MEDS: (Novolog) Insulin Aspart, Recombinant 100 u/ml 10 ml vial SC SCH ×4 (08:04→21:14)
[2018-04-11] MEDS: Fluticasone-Salmeterol 250-50mcg Diskus IH SCH ×2 (08:26→20:28)
[2018-04-11] MEDS: MethylPREDNISolone 40 mg Vial IVP SCH (09:24)
[2018-04-11] MEDS: Enoxaparin 40 mg Syringe SC SCH (09:25)
[2018-04-11] MEDS: Insulin Detemir 100 units/ml Vial (Levemir) SC SCH ×2 (09:25→18:25)
[2018-04-11] MEDS: Raltegravir 100 mg Chewable Tab PO SCH ×2 (09:26→18:25)
[2018-04-11] MEDS ORDERED: LIPASE/PROTEASE/AMYLASE 21,000 U ECC PO SCH (10:00)
--- NOTE | 2018-04-11 10:04 | CP.PCM.PN ---
Subjective - Date & Time of Evaluation Date of Evaluation: 04/11/18 Time of Evaluation: 10:01 - Subjective Subjective: still sob less cough less wheesing c/o of indigession Objective - Vital Signs/Intake and Output Vital Signs (last 24 hours): Temp Pulse Resp BP Pulse Ox 98.0 F 62 18 131/77 100 04/11/18 07:00 04/11/18 08:00 04/11/18 07:00 04/11/18 07:00 04/11/18 07:00 Intake and Output: 04/11/18 04/11/18 06:59 18:59 Intake Total 885 Output Total 325 Balance 560 - Medications Medications: Current Medications Abacavir Sulfate (Ziagen) 300 mg PO BID [facility] PRN Reason: Protocol Last Admin: 04/11/18 09:26 Dose: 300 mg Albuterol/Ipratropium (Duoneb 3 Mg/0.5 Mg (3 Ml) Ud) 3 ml INH RQ4 [facility] Last Admin: 04/11/18 07:25 Dose: 3 ml Alprazolam (Xanax) 0.25 mg PO TID PRN PRN Reason: Anxiety Stop: 04/15/18 04:17 Last Admin: 04/10/18 21:54 Dose: 0.25 mg Dextrose (Dextrose 50% Inj) 0 ml IV STAT PRN; Protocol PRN Reason: Hypoglycemia Protocol Dextrose (Glutose 15) 0 gm PO ONCE PRN; Protocol PRN Reason: Hypoglycemia Protocol Enoxaparin Sodium (Lovenox) 40 mg SC DAILY [facility] Last Admin: 04/11/18 09:25 Dose: Not Given Famotidine (Pepcid) 20 mg PO DAILY [facility] Last Admin: 04/11/18 09:24 Dose: 20 mg Gabapentin (Neurontin) 300 mg PO TID [facility] Last Admin: 04/11/18 09:24 Dose: 300 mg Glucagon (Glucagen Diagnostic Kit) 0 mg IM STAT PRN; Protocol PRN Reason: Hypoglycemia Protocol Guaifenesin (Mucinex La) 600 mg PO BID PRN PRN Reason: Cough Last Admin: 04/10/18 10:25 Dose: 600 mg Ceftriaxone Sodium 1 gm/ (Sodium Chloride) 100 mls @ 100 mls/hr IVPB DAILY [facility] PRN Reason: Protocol Last Admin: 04/11/18 09:30 Dose: 100 mls/hr Dextrose (Dextrose 5% In Water 1000 Ml) 1,000 mls @ 0 mls/hr IV .Q0M PRN; Protocol; Per Protocol PRN Reason: Hypoglycemia Protocol Insulin Aspart (Novolog) 0 unit SC [facility] PRN Reason: Protocol Last Admin: 04/11/18 08:04 Dose: 8 units Insulin Detemir (Levemir) 20 unit SC BID [facility] Last Admin: 04/11/18 09:25 Dose: 20 units Methylprednisolone (Solu-Medrol) 40 mg IVP DAILY [facility] Last Admin: 04/11/18 09:24 Dose: 40 mg Montelukast Sodium (Singulair) 10 mg PO HS [facility] Last Admin: 04/10/18 21:54 Dose: 10 mg Raltegravir (Isentress) 400 mg PO BID [facility] Last Admin: 04/11/18 09:26 Dose: 400 mg Raltegravir (Isentress Chewable) 200 mg PO BID [facility] Last Admin: 04/11/18 09:26 Dose: 200 mg Fluticasone/Salmeterol (Advair Diskus 250/50) 1 puff IH RBID [facility] Last Admin: 04/11/18 08:26 Dose: Not Given Spironolactone (Aldactone) 25 mg PO BID [facility] Last Admin: 04/10/18 18:24 Dose: 25 mg - Labs Labs: 04/08/18 01:24 04/08/18 01:24 PT 12.1 SECONDS (9.7-12.2) 04/08/18 01:24 INR 1.1 04/08/18 01:24 APTT 24 SECONDS (21-34) 04/08/18 01:24 - Constitutional Appears: Non-toxic, In Acute Distress - Head Exam Head Exam: NORMOCEPHALIC - Eye Exam Eye Exam: Normal appearance Pupil Exam: NORMAL ACCOMODATION - ENT Exam ENT Exam: Mucous Membranes Moist - Neck Exam Neck Exam: Normal Inspection - Respiratory Exam Respiratory Exam: Rales, Rhonchi, Wheezes - Cardiovascular Exam Cardiovascular Exam: REGULAR RHYTHM - GI/Abdominal Exam GI & Abdominal Exam: Normal Bowel Sounds - Extremities Exam Extremities Exam: Full ROM, Normal Capillary Refill - Back Exam Back Exam: NORMAL INSPECTION - Neurological Exam Neurological Exam: Normal Gait, Oriented x3 - Psychiatric Exam Psychiatric exam: Normal Affect - Skin Skin Exam: Normal Color Assessment and Plan - Assessment and Plan (Free Text) Assessment: ac exacerbation copd chf dmid Plan: as per orders
[2018-04-11] MEDS: LIPASE/PROTEASE/AMYLASE 21,000 U ECC PO SCH ×4 (10:32→17:24)
[2018-04-12] MEDS: Albuterol-Ipratrop 3 mg / 0.5 (3 ml) UD INH SCH ×6 (03:14→19:34)
[2018-04-12] MEDS: Fluticasone-Salmeterol 250-50mcg Diskus IH SCH ×2 (07:30→19:34)
[2018-04-12] MEDS: (Novolog) Insulin Aspart, Recombinant 100 u/ml 10 ml vial SC SCH ×4 (07:34→22:19)
[2018-04-12] MEDS: guaiFENesin 600 mg ER Tab PO PRN (08:04)
[2018-04-12] MEDS: LIPASE/PROTEASE/AMYLASE 21,000 U ECC PO SCH ×3 (08:04→17:11)
[2018-04-12] MEDS: MethylPREDNISolone 40 mg Vial IVP SCH ×3 (10:17→22:21)
[2018-04-12] MEDS: Raltegravir 100 mg Chewable Tab PO SCH ×2 (10:17→18:11)
[2018-04-12] MEDS: Enoxaparin 40 mg Syringe SC SCH (10:18)
[2018-04-12] MEDS: Insulin Detemir 100 units/ml Vial (Levemir) SC SCH ×2 (10:18→18:10)
--- NOTE | 2018-04-12 10:42 | CP.PCM.PN ---
Subjective - Date & Time of Evaluation Date of Evaluation: 04/12/18 Time of Evaluation: 10:40 - Subjective Subjective: pt still coughing bad sob and wheesing Objective - Vital Signs/Intake and Output Vital Signs (last 24 hours): Temp Pulse Resp BP Pulse Ox 98.4 F 94 H 18 115/77 96 04/12/18 07:46 04/12/18 10:30 04/12/18 07:46 04/12/18 07:46 04/12/18 07:46 Intake and Output: 04/12/18 04/12/18 06:59 18:59 Intake Total 598 Output Total 300 Balance 298 - Medications Medications: Current Medications Abacavir Sulfate (Ziagen) 300 mg PO BID [facility] PRN Reason: Protocol Last Admin: 04/12/18 10:16 Dose: 300 mg Albuterol/Ipratropium (Duoneb 3 Mg/0.5 Mg (3 Ml) Ud) 3 ml INH RQ4 [facility] Last Admin: 04/12/18 06:23 Dose: 3 ml Alprazolam (Xanax) 0.25 mg PO TID PRN PRN Reason: Anxiety Stop: 04/15/18 04:17 Last Admin: 04/12/18 08:04 Dose: 0.25 mg Aspirin (Aspirin) 325 mg PO DAILY [facility] Last Admin: 04/12/18 10:15 Dose: 325 mg Budesonide (Pulmicort Respules) 0.25 mg INH RQ12 [facility] Dextrose (Dextrose 50% Inj) 0 ml IV STAT PRN; Protocol PRN Reason: Hypoglycemia Protocol Dextrose (Glutose 15) 0 gm PO ONCE PRN; Protocol PRN Reason: Hypoglycemia Protocol Enoxaparin Sodium (Lovenox) 40 mg SC DAILY [facility] Last Admin: 04/12/18 10:18 Dose: Not Given Famotidine (Pepcid) 20 mg PO DAILY [facility] Last Admin: 04/12/18 10:33 Dose: 20 mg Gabapentin (Neurontin) 300 mg PO TID [facility] Last Admin: 04/12/18 10:16 Dose: 300 mg Glucagon (Glucagen Diagnostic Kit) 0 mg IM STAT PRN; Protocol PRN Reason: Hypoglycemia Protocol Guaifenesin (Mucinex La) 600 mg PO BID PRN PRN Reason: Cough Last Admin: 04/12/18 08:04 Dose: 600 mg Ceftriaxone Sodium 1 gm/ (Sodium Chloride) 100 mls @ 100 mls/hr IVPB DAILY [facility] PRN Reason: Protocol Last Admin: 04/11/18 09:30 Dose: 100 mls/hr Insulin Aspart (Novolog) 0 unit SC ACHS [facility] PRN Reason: Protocol Last Admin: 04/12/18 07:34 Dose: Not Given Insulin Detemir (Levemir) 20 unit SC BID [facility] Last Admin: 04/12/18 10:18 Dose: 20 units Methylprednisolone (Solu-Medrol) 40 mg IVP Q8 [facility] Montelukast Sodium (Singulair) 10 mg PO HS [facility] Last Admin: 04/11/18 21:12 Dose: 10 mg Raltegravir (Isentress) 400 mg PO BID [facility] Last Admin: 04/12/18 10:16 Dose: 400 mg Raltegravir (Isentress Chewable) 200 mg PO BID [facility] Last Admin: 04/12/18 10:17 Dose: 200 mg Fluticasone/Salmeterol (Advair Diskus 250/50) 1 puff IH RBID [facility] Last Admin: 04/11/18 20:28 Dose: Not Given Spironolactone (Aldactone) 25 mg PO BID [facility] Last Admin: 04/12/18 10:15 Dose: 25 mg - Labs Labs: 04/08/18 01:24 04/08/18 01:24 PT 12.1 SECONDS (9.7-12.2) 04/08/18 01:24 INR 1.1 04/08/18 01:24 APTT 24 SECONDS (21-34) 04/08/18 01:24 - Constitutional Appears: Non-toxic, In Acute Distress - Head Exam Head Exam: NORMOCEPHALIC - Eye Exam Eye Exam: Normal appearance Pupil Exam: NORMAL ACCOMODATION - ENT Exam ENT Exam: Mucous Membranes Moist - Neck Exam Neck Exam: Normal Inspection - Respiratory Exam Respiratory Exam: Decreased Breath Sounds, Rhonchi, Wheezes, Respiratory Distress - Cardiovascular Exam Cardiovascular Exam: REGULAR RHYTHM - Extremities Exam Extremities Exam: Normal Inspection - Back Exam Back Exam: NORMAL INSPECTION Assessment and Plan - Assessment and Plan (Free Text) Assessment: copd not improvin Plan: increase solumedrol and continu as per orders pt refused blood work will try in am
--- NOTE | 2018-04-12 12:07 | CT ---
Date of service: 04/12/2018 PROCEDURE: CT Chest without contrast HISTORY: persistant sob, hx of copd COMPARISON: 10/13/2015 TECHNIQUE: Contiguous axial images were obtained through the chest without intravenous contrast enhancement. Sagittal and coronal reconstructions were performed. Radiation dose (DLP): 506.86 mGy-cm. This CT exam was performed using one or more of the following dose reduction techniques: Automated exposure control, adjustment of the mA and/or kV according to patient size, and/or use of iterative reconstruction technique. FINDINGS: LUNGS: Interstitial infiltrate predominantly involving the upper lobes bilaterally new since prior CT examination. There is a reticular pattern to this interstitial infiltrate with no nodular infiltrate appreciated. There is minimal reticular interstitial infiltrate seen in the superior segment right lower lobe as well. There is a soft tissue mass in the right upper lobe this measures approximately 1.1 x 1.7 cm. There is a small cavity associated with this soft tissue mass. Previously, a cavitary lesion was identified in a similar location on CT examination of 10/13/2015. This was a moderately thick walled cavity measuring approximately 1.0 x 1.5 cm at that time. There is very little solid component appreciated on that examination. There has been minimal interval increase in size but change to a predominantly solid soft tissue mass. There is a 2nd smaller nodule in the right upper lobe measuring 7 mm, just cephalad to the 1st nodule. There is no cavitation associated with a 2nd nodule. This was not evident on prior examination. There is linear pleural-based scar noted in the lower lobe bilaterally, nonspecific. MEDIASTINUM: Unremarkable thoracic aorta. No aneurysm. Normal sized heart. Main pulmonary artery unremarkable. No vascular congestion. No lymphadenopathy. There is unilateral left gynecomastia unchanged in appearance compared to examination of 10/13/2015. PLEURA: Trace left pleural effusion. BONES: No fracture. No destructive lesion. UPPER ABDOMEN: Coarse calcifications noted in the pancreatic head. The included portion of the pancreas on this examination is unchanged in appearance when compared to prior abdominal/pelvic CT examination of 10/14/2015. Likely consistent with chronic pancreatitis. OTHER FINDINGS: None. IMPRESSION: Bilateral reticular interstitial infiltrate new since prior CT examination of 2015. Right upper lobe cavitating mass minimally enlarged since 2016 but increasingly solid rather than previously predominantly cavitated/cystic. Follow-up advised to exclude neoplasm. Consider bronchoscopy. Second new 7 mm right upper lobe nodule. Again follow-up is advised minimum six-month short interval follow-up noncontrast chest CT examination as per Fleischner society criteria. Stable unilateral left gynecomastia. Chronic pancreatitis with coarse calcifications in the pancreatic head.
[2018-04-12 13:58] LABS: BASO % 0.1 % (0.0-2.0); EOS % 0.1 % (0.0-4.0); HEMOGLOBIN 7.9 g/dL (12.0-18.0); LYMPH # 0.2 K/uL (1.0-4.3); LYMPH % 1.9 % (20.0-40.0); MEAN CELL VOLUME 84.8 fL (80.0-94.0); MEAN CORPUSCULAR HEMOGLOBIN 27.3 pg (27.0-31.0); MEAN CORPUSCULAR HGB CONC 32.2 g/dL (33.0-37.0); MEAN PLATELET VOLUME 7.6 fL (7.2-11.7); MONO # 0.2 K/uL (0.0-0.8); NEUT # 9.4 K/uL (1.8-7.0); NEUT % 95.9 % (50.0-75.0); NRBC % 0.4 % (0.0-2.0); PLATELET COUNT 214 K/uL (130-400); RED CELL DISTRIBUTION WIDTH 16.7 % (11.5-14.5); WHITE BLOOD COUNT 9.8 K/uL (4.8-10.8)
[2018-04-12 14:25] LABS: BLOOD UREA NITROGEN 21 mg/dL (9-20); GFR AFRICAN-AMERICAN > 60; GFR NON-AFRICAN AMERICAN > 60
[2018-04-12 14:26] LABS: CALCIUM 8.8 mg/dl (8.6-10.4)
[2018-04-12] MEDS: guaiFENesin DM 200 mg-20 mg/10 ml UD PO PRN ×2 (14:50→18:20)
[2018-04-12 14:52] LABS: ANISOCYTOSIS SLIGHT; HYPOCHROMIC SLIGHT; LYMPHOCYTE 5 % (20-40); MONOCYTE 1 % (0-10); NEUTROPHIL 94 % (50-75); PLATELET ESTIMATE NORMAL (NORMAL); TOTAL CELLS COUNTED 100
[2018-04-12 14:53] LABS: POLYCHROMIC SLIGHT
--- NOTE | 2018-04-12 23:55 | CARD ---
APPROVED REPORT Date of service: 04/11/2018 EXAM: Two-dimensional and M-mode echocardiogram with Doppler and color Doppler. Other Information Quality : GoodRhythm : INDICATION Congestive Heart Failure RISK FACTORS Hypertension Diabetes 2D DIMENSIONS IVSd0.7 (0.7-1.1cm)LVDd5.2 (3.9-5.9cm) PWd0.8 (0.7-1.1cm)LVDs3.2 (2.5-4.0cm) FS (%) 38.9 %LVEF (%)68.9 (>50%) M-Mode DIMENSIONS Left Atrium (MM)2.25 (2.5-4.0cm)IVSd0.94 (0.7-1.1cm) Aortic Root2.87 (2.2-3.7cm)LVDd5.38 (4.0-5.6cm) Aortic Cusp Exc.1.69 (1.5-2.0cm)PWd0.94 (0.7-1.1cm) FS (%) 40 %LVDs3.23 (2.0-3.8cm) LVEF (%)70 (>50%) Mitral Valve MV E Sorfeyvd69.0cm/sMV A Yquhvfbq01.9cm/sE/A ratio1.4 TDI E/Lateral E'0.0E/Medial E'0.0 Tricuspid Valve TR Peak Weomjaoc781ho/sTR Peak Gr.[id number] LEFT VENTRICLE The left ventricle is normal size. There is normal left ventricular wall thickness. Left ventricle systolic function is normal. The Ejection Fraction is 65-70%. There is normal LV segmental wall motion. The left ventricular diastolic function is normal. RIGHT VENTRICLE The right ventricle is normal size. There is normal right ventricular wall thickness. The right ventricular systolic function is normal. ATRIA The left atrium size is normal. The right atrium size is normal. The interatrial septum is intact with no evidence for an atrial septal defect. AORTIC VALVE The aortic valve is normal in structure. No aortic regurgitation is present. There is no aortic valvular stenosis. MITRAL VALVE The mitral valve is normal in structure. There is no evidence of mitral valve prolapse. There is no mitral valve stenosis. Mitral regurgitation is mild. TRICUSPID VALVE The tricuspid valve is normal in structure. There is mild tricuspid regurgitation. Right ventricular systolic pressure is estimated at 30-40 mmHg. There is mild pulmonary hypertension. PULMONIC VALVE The pulmonic valve is not well visualized. There is no pulmonic valvular regurgitation. GREAT VESSELS The aortic root is normal in size. PERICARDIAL EFFUSION There is no significant pericardial effusion. <Conclusion> Left ventricle systolic function is normal. The Ejection Fraction is 65-70%. No aortic regurgitation is present. Mitral regurgitation is mild. There is mild tricuspid regurgitation. There is mild pulmonary hypertension. There is no pulmonic valvular regurgitation.
[2018-04-13] MEDS: Albuterol-Ipratrop 3 mg / 0.5 (3 ml) UD INH SCH ×6 (00:33→20:20)
[2018-04-13] MEDS: guaiFENesin DM 200 mg-20 mg/10 ml UD PO PRN ×3 (01:04→19:23)
[2018-04-13] MEDS: MethylPREDNISolone 40 mg Vial IVP SCH ×2 (05:35→13:19)
[2018-04-13] MEDS: Budesonide 0.25 mg/2 ml Inhal Susp UD INH SCH ×2 (07:10→20:20)
[2018-04-13] MEDS: Fluticasone-Salmeterol 250-50mcg Diskus IH SCH (07:20)
[2018-04-13 07:27] LABS: BASO % 0.2 % (0.0-2.0); EOS % 0.2 % (0.0-4.0); HEMOGLOBIN 9.2 g/dL (12.0-18.0); LYMPH # 0.4 K/uL (1.0-4.3); LYMPH % 4.2 % (20.0-40.0); MEAN CELL VOLUME 83.8 fL (80.0-94.0); MEAN CORPUSCULAR HEMOGLOBIN 27.4 pg (27.0-31.0); MEAN CORPUSCULAR HGB CONC 32.7 g/dL (33.0-37.0); MEAN PLATELET VOLUME 7.7 fL (7.2-11.7); MONO # 0.4 K/uL (0.0-0.8); NEUT # 8.6 K/uL (1.8-7.0); NEUT % 91.4 % (50.0-75.0); NRBC % 0.4 % (0.0-2.0); PLATELET COUNT 224 K/uL (130-400); RBC 3.37 Mil/uL (4.40-5.90); WHITE BLOOD COUNT 9.4 K/uL (4.8-10.8)
[2018-04-13] MEDS: (Novolog) Insulin Aspart, Recombinant 100 u/ml 10 ml vial SC SCH ×4 (07:53→22:26)
--- NOTE | 2018-04-13 08:00 | CON ---
Copied To: Lisseth Garcia MD Attending MD: Lisseth Garcia MD DATE: 04/12/2018 HISTORY OF PRESENT ILLNESS: A 62-year-old male with history of HIV, severe COPD, who came to the hospital with a chief complaint of , advised admission. The patient is still noncompliant. He was smoking prior . PHYSICAL EXAMINATION: GENERAL: The patient is awake, alert, oriented. VITAL SIGNS: Temperature 98, pulse 90. HEENT: Within normal limits. NECK: Supple. CHEST: Symmetrical. HEART: Regular. ABDOMEN: Soft. EXTREMITIES: No edema. ASSESSMENT: The patient with exacerbation of chronic obstructive pulmonary disease, bronchitis. The patient to be in bed rest, supportive care, bronchodilator. Lisseth Garcia MD
[2018-04-13] MEDS: LIPASE/PROTEASE/AMYLASE 21,000 U ECC PO SCH ×3 (08:08→19:23)
[2018-04-13 08:32] LABS: LYMPHOCYTE 4 % (20-40); MONOCYTE 5 % (0-10); NEUTROPHIL 91 % (50-75); PLATELET ESTIMATE NORMAL (NORMAL); TOTAL CELLS COUNTED 100
[2018-04-13 08:34] LABS: ANISOCYTOSIS SLIGHT; FERRITIN 37.1 ng/mL; HYPOCHROMIC SLIGHT
[2018-04-13 08:55] VITALS: RESP 20
[2018-04-13 09:04] LABS: FOLATE 10.5 ng/mL
[2018-04-13] MEDS: Raltegravir 100 mg Chewable Tab PO SCH (09:44)
[2018-04-13] MEDS: Enoxaparin 40 mg Syringe SC SCH (09:45)
[2018-04-13] MEDS: Insulin Detemir 100 units/ml Vial (Levemir) SC SCH ×2 (10:04→18:30)
--- NOTE | 2018-04-13 11:43 | CP.PCM.CON ---
History of Present Illness - History of Present Illness History of Present Illness: 62 year old male with a history of HIV, COPD, HTN, DM, admitted with chest pain , cough, anemia and cavitary lung lesion. The patient reports to worsening cough and chest pain for the past few days. He reports to recently being discharged from [facility] for similar complaints but is unsure of his treatment and work up. He does admit to poor appetite and thinks he may have lost weight. He denies abnormal bleeding and bruising. Past medical history: HIV, COPD, HTN, DM, polysubstance abuse Past surgical history: Facial plate for fracture Family history: Denies hematologic and oncologic problems Social history: Denies tobacco, alcohol, and illicit drug use Allergies: NKA Review of systems: All remaining review of systems including HEENT, cardiovascular, respiratory, gastrointestinal, genitourinary, musculoskeletal, dermatologic, neurologic, and psychiatric are negative unless mentioned in the HPI. Past Patient History - Infectious Disease Hx of Infectious Diseases: None - Tetanus Immunizations Tetanus Immunization: Unknown - Past Medical History & Family History Past Medical History?: Yes - Past Social History Smoking Status: Former Smoker - CARDIAC Hx Hypercholesterolemia: Yes Hx Hypertension: Yes - PULMONARY Hx Asthma: Yes Hx Bronchitis: Yes Hx Chronic Obstructive Pulmonary Disease (COPD): Yes (Emphysema) Hx Emphysema: Yes Hx Pneumonia: Yes Hx Sleep Apnea: Yes - NEUROLOGICAL Hx Seizures: No - HEENT Hx HEENT Problems: No - RENAL Hx Chronic Kidney Disease: No - ENDOCRINE/METABOLIC Hx Diabetes Mellitus Type 2: Yes - HEMATOLOGICAL/ONCOLOGICAL Hx Human Immunodeficiency Virus (HIV): Yes - INTEGUMENTARY Hx Dermatological Problems: No - MUSCULOSKELETAL/RHEUMATOLOGICAL Hx Arthritis: Yes - GASTROINTESTINAL Hx Pancreatitis: Yes - GENITOURINARY/GYNECOLOGICAL Hx Sexually Transmitted Disorders: No - PSYCHIATRIC Hx Anxiety: Yes Hx Substance Use: Yes - SURGICAL HISTORY Hx Surgeries: Yes Hx Orthopedic Surgery: Yes (RT KNEE) Other/Comment: comestic surgery to face post getting kicked in face by horse - ANESTHESIA Hx Anesthesia: Yes Hx Anesthesia Reactions: No Hx Malignant Hyperthermia: No Meds Allergies/Adverse Reactions: Allergies Allergy/AdvReac Type Severity Reaction Status Date / Time No Known Allergies Allergy Verified 04/08/18 01:15 - Medications Medications: Current Medications Abacavir Sulfate (Ziagen) 300 mg PO BID [facility] PRN Reason: Protocol Last Admin: 04/13/18 10:05 Dose: 300 mg Albuterol/Ipratropium (Duoneb 3 Mg/0.5 Mg (3 Ml) Ud) 3 ml INH RQ4 [facility] Last Admin: 04/13/18 03:55 Dose: Not Given Alprazolam (Xanax) 0.25 mg PO TID PRN PRN Reason: Anxiety Stop: 04/15/18 04:17 Last Admin: 04/13/18 10:04 Dose: 0.25 mg Aspirin (Aspirin) 325 mg PO DAILY [facility] Last Admin: 04/13/18 09:44 Dose: 325 mg Budesonide (Pulmicort Respules) 0.25 mg INH RQ12 [facility] Last Admin: 04/13/18 07:10 Dose: 0.25 mg Dextrose (Dextrose 50% Inj) 0 ml IV STAT PRN; Protocol PRN Reason: Hypoglycemia Protocol Dextrose (Glutose 15) 0 gm PO ONCE PRN; Protocol PRN Reason: Hypoglycemia Protocol Enoxaparin Sodium (Lovenox) 40 mg SC DAILY [facility] Last Admin: 04/13/18 09:45 Dose: Not Given Famotidine (Pepcid) 20 mg PO DAILY [facility] Last Admin: 04/13/18 11:12 Dose: 20 mg Gabapentin (Neurontin) 300 mg PO TID [facility] Last Admin: 04/13/18 09:45 Dose: 300 mg Glucagon (Glucagen Diagnostic Kit) 0 mg IM STAT PRN; Protocol PRN Reason: Hypoglycemia Protocol Guaifenesin (Mucinex La) 600 mg PO BID PRN PRN Reason: Cough Last Admin: 04/12/18 08:04 Dose: 600 mg Guaifenesin/Dextromethorphan (Robitussin Dm) 10 ml PO Q4H PRN PRN Reason: Cough and congestion Last Admin: 04/13/18 01:04 Dose: 10 ml Insulin Aspart (Novolog) 0 unit SC ACHS [facility] PRN Reason: Protocol Last Admin: 04/13/18 07:53 Dose: Not Given Insulin Detemir (Levemir) 20 unit SC BID [facility] Last Admin: 04/13/18 10:04 Dose: 20 units Methylprednisolone (Solu-Medrol) 40 mg IVP Q8 [facility] Last Admin: 04/13/18 05:35 Dose: 40 mg Montelukast Sodium (Singulair) 10 mg PO HS [facility] Last Admin: 04/12/18 22:19 Dose: 10 mg Raltegravir (Isentress) 400 mg PO BID [facility] Last Admin: 04/13/18 09:44 Dose: 400 mg Raltegravir (Isentress Chewable) 200 mg PO BID [facility] Last Admin: 04/13/18 09:44 Dose: 200 mg Fluticasone/Salmeterol (Advair Diskus 250/50) 1 puff IH RBID [facility] Last Admin: 04/13/18 07:20 Dose: Not Given Spironolactone (Aldactone) 25 mg PO BID [facility] Last Admin: 04/13/18 09:43 Dose: 25 mg Physical Exam - Head Exam Head Exam: ATRAUMATIC - Eye Exam Eye Exam: Normal appearance - ENT Exam ENT Exam: Mucous Membranes Dry - Respiratory Exam Respiratory Exam: NORMAL BREATHING PATTERN - Cardiovascular Exam Cardiovascular Exam: +S1, +S2 - GI/Abdominal Exam GI & Abdominal Exam: Normal Bowel Sounds - Extremities Exam Extremities exam: Positive for: pedal edema - Neurological Exam Neurological exam: Oriented x3 - Psychiatric Exam Psychiatric exam: Normal Affect, Normal Mood - Skin Skin Exam: Warm Results - Vital Signs Recent Vital Signs: Last Vital Signs Temp 98.6 F 04/13/18 07:40 Pulse 81 04/13/18 07:40 Resp 20 04/13/18 07:40 BP 145/79 04/13/18 07:40 Pulse Ox 95 04/13/18 07:40 - Labs Result Diagrams: 04/13/18 07:13 04/12/18 13:53 Labs: Laboratory Results - last 24 hr 04/12/18 04/12/18 04/12/18 13:53 13:53 16:50 WBC 9.8 RBC 2.90 L Hgb 7.9 L Hct 24.5 L MCV 84.8 MCH 27.3 MCHC 32.2 L RDW 16.7 H Plt Count 214 MPV 7.6 Neut % (Auto) 95.9 H Lymph % (Auto) 1.9 L [place] % (Auto) 2.0 Eos % (Auto) 0.1 Baso % (Auto) 0.1 Neut # (Auto) 9.4 H Lymph # (Auto) 0.2 L [place] # (Auto) 0.2 Eos # (Auto) 0.0 Baso # (Auto) 0.0 Neutrophils % (Manual) 94 H Lymphocytes % (Manual) 5 L Monocytes % (Manual) 1 Platelet Estimate Normal Polychromasia Slight Hypochromasia (manual) Slight Anisocytosis (manual) Slight Retic Count Sodium 142 Potassium 3.7 Chloride 105 Carbon Dioxide 30 Anion Gap 11 BUN 21 H Creatinine 0.8 Est GFR ( Amer) > 60 Est GFR (Non-Af Amer) > 60 POC Glucose (mg/dL) 390 H Random Glucose 152 H Calcium 8.8 Ferritin Vitamin B12 Folate Stool Occult Blood Blood Type Blood Type Confirm Antibody Screen 04/12/18 04/12/18 04/13/18 17:21 21:04 02:23 WBC RBC Hgb Hct MCV MCH MCHC RDW Plt Count MPV Neut % (Auto) Lymph % (Auto) [place] % (Auto) Eos % (Auto) Baso % (Auto) Neut # (Auto) Lymph # (Auto) [place] # (Auto) Eos # (Auto) Baso # (Auto) Neutrophils % (Manual) Lymphocytes % (Manual) Monocytes % (Manual) Platelet Estimate Polychromasia Hypochromasia (manual) Anisocytosis (manual) Retic Count Sodium Potassium Chloride Carbon Dioxide Anion Gap BUN Creatinine Est GFR ( Amer) Est GFR (Non-Af Amer) POC Glucose (mg/dL) 348 H 161 H Random Glucose Calcium Ferritin Vitamin B12 Folate Stool Occult Blood Blood Type A POSITIVE Blood Type Confirm A POSITIVE Antibody Screen Negative 04/13/18 04/13/18 04/13/18 04:25 06:13 07:13 WBC 9.4 RBC 3.37 L Hgb 9.2 L Hct 28.2 L MCV 83.8 MCH 27.4 MCHC 32.7 L RDW 16.0 H Plt Count 224 MPV 7.7 Neut % (Auto) 91.4 H Lymph % (Auto) 4.2 L [place] % (Auto) 4.0 Eos % (Auto) 0.2 Baso % (Auto) 0.2 Neut # (Auto) 8.6 H Lymph # (Auto) 0.4 L [place] # (Auto) 0.4 Eos # (Auto) 0.0 Baso # (Auto) 0.0 Neutrophils % (Manual) 91 H Lymphocytes % (Manual) 4 L Monocytes % (Manual) 5 Platelet Estimate Normal Polychromasia Hypochromasia (manual) Slight Anisocytosis (manual) Slight Retic Count 1.7 H Sodium Potassium Chloride Carbon Dioxide Anion Gap BUN Creatinine Est GFR ( Amer) Est GFR (Non-Af Amer) POC Glucose (mg/dL) 125 H Random Glucose Calcium Ferritin Vitamin B12 Folate Stool Occult Blood Positive H Blood Type Blood Type Confirm Antibody Screen 04/13/18 07:13 WBC RBC Hgb Hct MCV MCH MCHC RDW Plt Count MPV Neut % (Auto) Lymph % (Auto) [place] % (Auto) Eos % (Auto) Baso % (Auto) Neut # (Auto) Lymph # (Auto) [place] # (Auto) Eos # (Auto) Baso # (Auto) Neutrophils % (Manual) Lymphocytes % (Manual) Monocytes % (Manual) Platelet Estimate Polychromasia Hypochromasia (manual) Anisocytosis (manual) Retic Count Sodium Potassium Chloride Carbon Dioxide Anion Gap BUN Creatinine Est GFR ( Amer) Est GFR (Non-Af Amer) POC Glucose (mg/dL) Random Glucose Calcium Ferritin 37.1 Vitamin B12 379 Folate 10.5 Stool Occult Blood Blood Type Blood Type Confirm Antibody Screen Assessment & Plan (1) Anemia Assessment and Plan: for transfusion support will check retic count, b12, folate, ferritin, FOBT to further characterize Status: Acute (2) Cavitary lesion of lung Assessment and Plan: recommend pulmonary consult Thank you for this interesting consult. Status: Acute
[2018-04-13] MEDS: guaiFENesin 600 mg ER Tab PO PRN (11:47)
[2018-04-13] MEDS ORDERED: Ferric Sodium Gluconat Complex 62.5 mg/5 ml Vial IVPB SCH (12:00)
--- NOTE | 2018-04-13 12:00 | CP.PCM.PN ---
Subjective - Date & Time of Evaluation Date of Evaluation: 04/13/18 Time of Evaluation: 11:00 - Subjective Subjective: Has some chest pain. Objective - Vital Signs/Intake and Output Vital Signs (last 24 hours): Temp Pulse Resp BP Pulse Ox 98.6 F 81 20 145/79 95 04/13/18 07:40 04/13/18 07:40 04/13/18 07:40 04/13/18 07:40 04/13/18 07:40 Intake and Output: 04/13/18 04/13/18 06:59 18:59 Intake Total 925 445 Balance 925 445 - Medications Medications: Current Medications Abacavir Sulfate (Ziagen) 300 mg PO BID [facility] PRN Reason: Protocol Last Admin: 04/13/18 10:05 Dose: 300 mg Albuterol/Ipratropium (Duoneb 3 Mg/0.5 Mg (3 Ml) Ud) 3 ml INH RQ4 [facility] Last Admin: 04/13/18 03:55 Dose: Not Given Alprazolam (Xanax) 0.25 mg PO TID PRN PRN Reason: Anxiety Stop: 04/15/18 04:17 Last Admin: 04/13/18 10:04 Dose: 0.25 mg Aspirin (Aspirin) 325 mg PO DAILY [facility] Last Admin: 04/13/18 09:44 Dose: 325 mg Budesonide (Pulmicort Respules) 0.25 mg INH RQ12 [facility] Last Admin: 04/13/18 07:10 Dose: 0.25 mg Dextrose (Dextrose 50% Inj) 0 ml IV STAT PRN; Protocol PRN Reason: Hypoglycemia Protocol Dextrose (Glutose 15) 0 gm PO ONCE PRN; Protocol PRN Reason: Hypoglycemia Protocol Enoxaparin Sodium (Lovenox) 40 mg SC DAILY [facility] Last Admin: 04/13/18 09:45 Dose: Not Given Famotidine (Pepcid) 20 mg PO DAILY [facility] Last Admin: 04/13/18 11:12 Dose: 20 mg Gabapentin (Neurontin) 300 mg PO TID [facility] Last Admin: 04/13/18 09:45 Dose: 300 mg Glucagon (Glucagen Diagnostic Kit) 0 mg IM STAT PRN; Protocol PRN Reason: Hypoglycemia Protocol Guaifenesin (Mucinex La) 600 mg PO BID PRN PRN Reason: Cough Last Admin: 04/13/18 11:47 Dose: 600 mg Guaifenesin/Dextromethorphan (Robitussin Dm) 10 ml PO Q4H PRN PRN Reason: Cough and congestion Last Admin: 04/13/18 01:04 Dose: 10 ml Insulin Aspart (Novolog) 0 unit SC ACHS [facility] PRN Reason: Protocol Last Admin: 04/13/18 07:53 Dose: Not Given Insulin Detemir (Levemir) 20 unit SC BID [facility] Last Admin: 04/13/18 10:04 Dose: 20 units Methylprednisolone (Solu-Medrol) 40 mg IVP Q8 [facility] Last Admin: 04/13/18 05:35 Dose: 40 mg Montelukast Sodium (Singulair) 10 mg PO HS [facility] Last Admin: 04/12/18 22:19 Dose: 10 mg Raltegravir (Isentress) 400 mg PO BID [facility] Last Admin: 04/13/18 09:44 Dose: 400 mg Raltegravir (Isentress Chewable) 200 mg PO BID [facility] Last Admin: 04/13/18 09:44 Dose: 200 mg Fluticasone/Salmeterol (Advair Diskus 250/50) 1 puff IH RBID [facility] Last Admin: 04/13/18 07:20 Dose: Not Given Spironolactone (Aldactone) 25 mg PO BID [facility] Last Admin: 04/13/18 09:43 Dose: 25 mg - Labs Labs: 04/13/18 07:13 04/12/18 13:53 PT 12.1 SECONDS (9.7-12.2) 04/08/18 01:24 INR 1.1 04/08/18 01:24 APTT 24 SECONDS (21-34) 04/08/18 01:24 - Head Exam Head Exam: ATRAUMATIC - Eye Exam Eye Exam: Normal appearance - ENT Exam ENT Exam: Mucous Membranes Dry - Respiratory Exam Respiratory Exam: NORMAL BREATHING PATTERN - Cardiovascular Exam Cardiovascular Exam: +S1, +S2 - GI/Abdominal Exam GI & Abdominal Exam: Normal Bowel Sounds Assessment and Plan (1) Anemia Assessment & Plan: s/p PRBC transfusion H/H improved iron deficiency will start IV iron FOBT positive; consider GI evaluation Status: Acute (2) Cavitary lesion of lung Assessment & Plan: pulmonary evaluation Status: Acute
[2018-04-13] MEDS ORDERED: Ferric Sodium Gluconat Complex 125 MG in Sodium Chloride 0.9% 100 ML IVPB SCH (13:30)
--- NOTE | 2018-04-13 15:45 | CP.PCM.PN ---
Subjective - Date & Time of Evaluation Date of Evaluation: 04/13/18 Time of Evaluation: 15:44 - Subjective Subjective: PT'S STOOL OB WAS POSITIVE---RESULTED AT APPROXIMATELY 0425---PER PRIMARY RN HE WAS NOT ENDORSED THAT BY OVERNIGHT NURSE. DR. MENDIOLA RECOMMENDING GI EVAL. I CALLED DR. VELÁZQUEZ BUT THERE WAS NO ANSWER. REVIEW FROM PREVIOUS PROGRESS NOTES SHOWS PT WAS SEEN BY DR. PARHAM IN 2016. CONSULT ORDERED FOR DR. PARHAM--- PRIMARY RN TO NOTIFY CONSULT TONIGHT. Objective - Vital Signs/Intake and Output Vital Signs (last 24 hours): Temp Pulse Resp BP Pulse Ox 98.6 F 81 20 145/79 95 04/13/18 07:40 04/13/18 07:40 04/13/18 07:40 04/13/18 07:40 04/13/18 07:40 Intake and Output: 04/13/18 04/13/18 06:59 18:59 Intake Total 925 445 Balance 925 445 - Medications Medications: Current Medications Abacavir Sulfate (Ziagen) 300 mg PO BID [facility] PRN Reason: Protocol Last Admin: 04/13/18 10:05 Dose: 300 mg Albuterol/Ipratropium (Duoneb 3 Mg/0.5 Mg (3 Ml) Ud) 3 ml INH RQ4 [facility] Last Admin: 04/13/18 12:00 Dose: 3 ml Alprazolam (Xanax) 0.25 mg PO TID PRN PRN Reason: Anxiety Stop: 04/15/18 04:17 Last Admin: 04/13/18 10:04 Dose: 0.25 mg Aspirin (Aspirin) 325 mg PO DAILY [facility] Last Admin: 04/13/18 09:44 Dose: 325 mg Budesonide (Pulmicort Respules) 0.25 mg INH RQ12 [facility] Last Admin: 04/13/18 07:10 Dose: 0.25 mg Dextrose (Dextrose 50% Inj) 0 ml IV STAT PRN; Protocol PRN Reason: Hypoglycemia Protocol Dextrose (Glutose 15) 0 gm PO ONCE PRN; Protocol PRN Reason: Hypoglycemia Protocol Enoxaparin Sodium (Lovenox) 40 mg SC DAILY [facility] Last Admin: 04/13/18 09:45 Dose: Not Given Famotidine (Pepcid) 20 mg PO DAILY [facility] Last Admin: 04/13/18 11:12 Dose: 20 mg Gabapentin (Neurontin) 300 mg PO TID [facility] Last Admin: 04/13/18 13:19 Dose: 300 mg Glucagon (Glucagen Diagnostic Kit) 0 mg IM STAT PRN; Protocol PRN Reason: Hypoglycemia Protocol Guaifenesin (Mucinex La) 600 mg PO BID PRN PRN Reason: Cough Last Admin: 04/13/18 11:47 Dose: 600 mg Guaifenesin/Dextromethorphan (Robitussin Dm) 10 ml PO Q4H PRN PRN Reason: Cough and congestion Last Admin: 04/13/18 12:07 Dose: 10 ml Ferric Sodium Gluconate Complex 125 mg/ Sodium Chloride 110 mls @ 110 mls/hr IVPB Q24H [facility] Stop: 04/21/18 13:31 Last Admin: 04/13/18 14:01 Dose: 110 mls/hr Insulin Aspart (Novolog) 0 unit SC ACHS [facility] PRN Reason: Protocol Last Admin: 04/13/18 12:08 Dose: 10 units Insulin Detemir (Levemir) 20 unit SC BID [facility] Last Admin: 04/13/18 10:04 Dose: 20 units Methylprednisolone (Solu-Medrol) 40 mg IVP Q8 [facility] Last Admin: 04/13/18 13:19 Dose: 40 mg Montelukast Sodium (Singulair) 10 mg PO HS [facility] Last Admin: 04/12/18 22:19 Dose: 10 mg Fluticasone/Salmeterol (Advair Diskus 250/50) 1 puff IH RBID [facility] Last Admin: 04/13/18 07:20 Dose: Not Given Spironolactone (Aldactone) 25 mg PO BID [facility] Last Admin: 04/13/18 09:43 Dose: 25 mg - Labs Labs: 04/13/18 07:13 04/12/18 13:53 PT 12.1 SECONDS (9.7-12.2) 04/08/18 01:24 INR 1.1 04/08/18 01:24 APTT 24 SECONDS (21-34) 04/08/18 01:24
[2018-04-14] MEDS: Albuterol-Ipratrop 3 mg / 0.5 (3 ml) UD INH SCH ×5 (00:16→16:22)
[2018-04-14] MEDS: guaiFENesin DM 200 mg-20 mg/10 ml UD PO PRN (08:10)
[2018-04-14] MEDS: LIPASE/PROTEASE/AMYLASE 21,000 U ECC PO SCH ×2 (08:10→12:17)
[2018-04-14] MEDS: (Novolog) Insulin Aspart, Recombinant 100 u/ml 10 ml vial SC SCH ×2 (08:11→12:18)
[2018-04-14] MEDS: Budesonide 0.25 mg/2 ml Inhal Susp UD INH SCH (08:25)
[2018-04-14] MEDS: Fluticasone-Salmeterol 250-50mcg Diskus IH SCH (08:25)
[2018-04-14] MEDS: Insulin Detemir 100 units/ml Vial (Levemir) SC SCH (10:28)
[2018-04-14] MEDS: Enoxaparin 40 mg Syringe SC SCH (10:29)
--- NOTE | 2018-04-14 12:04 | CP.PCM.PN ---
Subjective - Date & Time of Evaluation Date of Evaluation: 04/14/18 Time of Evaluation: 12:02 - Subjective Subjective: feels beter today dressed up wants to go home Objective - Vital Signs/Intake and Output Vital Signs (last 24 hours): Temp Pulse Resp BP Pulse Ox 98.1 F 72 20 144/82 98 04/14/18 07:15 04/14/18 07:15 04/14/18 07:15 04/14/18 07:15 04/14/18 07:15 Intake and Output: 04/14/18 04/14/18 06:59 18:59 Intake Total 200 Balance 200 - Medications Medications: Current Medications Abacavir Sulfate (Ziagen) 300 mg PO BID [facility] PRN Reason: Protocol Last Admin: 04/14/18 10:28 Dose: Not Given Albuterol/Ipratropium (Duoneb 3 Mg/0.5 Mg (3 Ml) Ud) 3 ml INH RQ4 [facility] Last Admin: 04/14/18 11:42 Dose: 3 ml Alprazolam (Xanax) 0.25 mg PO TID PRN PRN Reason: Anxiety Stop: 04/15/18 04:17 Last Admin: 04/14/18 10:33 Dose: 0.25 mg Aspirin (Aspirin) 325 mg PO DAILY [facility] Last Admin: 04/14/18 10:27 Dose: 325 mg Budesonide (Pulmicort Respules) 0.25 mg INH RQ12 [facility] Last Admin: 04/14/18 08:25 Dose: 0.25 mg Dextrose (Dextrose 50% Inj) 0 ml IV STAT PRN; Protocol PRN Reason: Hypoglycemia Protocol Dextrose (Glutose 15) 0 gm PO ONCE PRN; Protocol PRN Reason: Hypoglycemia Protocol Enoxaparin Sodium (Lovenox) 40 mg SC DAILY [facility] Last Admin: 04/14/18 10:29 Dose: Not Given Famotidine (Pepcid) 20 mg PO DAILY [facility] Last Admin: 04/14/18 10:27 Dose: 20 mg Gabapentin (Neurontin) 300 mg PO TID [facility] Last Admin: 04/14/18 10:27 Dose: 300 mg Glucagon (Glucagen Diagnostic Kit) 0 mg IM STAT PRN; Protocol PRN Reason: Hypoglycemia Protocol Guaifenesin (Mucinex La) 600 mg PO BID PRN PRN Reason: Cough Last Admin: 04/13/18 11:47 Dose: 600 mg Guaifenesin/Dextromethorphan (Robitussin Dm) 10 ml PO Q4H PRN PRN Reason: Cough and congestion Last Admin: 04/14/18 08:10 Dose: 10 ml Ferric Sodium Gluconate Complex 125 mg/ Sodium Chloride 110 mls @ 110 mls/hr IVPB Q24H [facility] Stop: 04/21/18 13:31 Last Admin: 04/13/18 14:01 Dose: 110 mls/hr Insulin Aspart (Novolog) 0 unit SC ACHS [facility] PRN Reason: Protocol Last Admin: 04/14/18 08:11 Dose: 2 units Insulin Detemir (Levemir) 25 unit SC BID [facility] Last Admin: 04/14/18 10:28 Dose: 25 units Montelukast Sodium (Singulair) 10 mg PO HS [facility] Last Admin: 04/13/18 22:28 Dose: 10 mg Prednisone (Prednisone Tab) 20 mg PO DAILY [facility] Last Admin: 04/14/18 10:27 Dose: 20 mg Fluticasone/Salmeterol (Advair Diskus 250/50) 1 puff IH RBID [facility] Last Admin: 04/14/18 08:25 Dose: 1 puff Spironolactone (Aldactone) 25 mg PO BID [facility] Last Admin: 04/14/18 10:27 Dose: 25 mg - Labs Labs: 04/13/18 07:13 04/12/18 13:53 PT 12.1 SECONDS (9.7-12.2) 04/08/18 01:24 INR 1.1 04/08/18 01:24 APTT 24 SECONDS (21-34) 04/08/18 01:24 - Constitutional Appears: Non-toxic - Head Exam Head Exam: NORMAL INSPECTION - Eye Exam Eye Exam: Normal appearance Pupil Exam: NORMAL ACCOMODATION - ENT Exam ENT Exam: Mucous Membranes Moist - Neck Exam Neck Exam: Full ROM - Respiratory Exam Respiratory Exam: Clear to Ausculation Bilateral - Cardiovascular Exam Cardiovascular Exam: REGULAR RHYTHM - GI/Abdominal Exam GI & Abdominal Exam: Normal Bowel Sounds - Extremities Exam Extremities Exam: Full ROM, Normal Inspection - Back Exam Back Exam: NORMAL INSPECTION - Psychiatric Exam Psychiatric exam: Normal Affect, Normal Mood - Skin Skin Exam: Pallor Assessment and Plan - Assessment and Plan (Free Text) Assessment: s?p ac exa copd hiv aneamia Plan: improved will d/c home on med f/u in one weeke
--- NOTE | 2018-04-14 12:23 | CP.PCM.CON ---
<Raul Weiner - Last Filed: 04/14/18 12:26> History of Present Illness - History of Present Illness History of Present Illness: PGY-4 GI Fellow Consult Note Pt is a 62 yo BM with h/o HIV, HCV (never treated, states was told he doesn't have it anymore), COPD, HTN, DM, Chronic Pancreatitis who was admitted on 04/08 with worsening shortness of breath and treated for COPD, PNA and Cavitary lung lesion. During his stay he was found to be anemic to 7.9 from most recent baseline 9-10. Workup return stool occult blood positive; therefore, GI was consulted for further evaluation. Pt states that he has not noticed any blood in his stools. States that he normally has formed, brown bowel movements almost everyday. Denies any melena, hematochezia, dysphagia, weight loss, abd pain, N/V. States that he has never had a CSPY before. 12 point ROS negative other than states above MHx: See above SurgHx: Facial plate Meds: Reviewed in [facility] FamHx: Denied fam h/o GI probs/malignancy SocHx: H/o IVDU, denied tob, etoh, ill currently All: NKDA Past Patient History - Infectious Disease Hx of Infectious Diseases: None - Tetanus Immunizations Tetanus Immunization: Unknown - Past Medical History & Family History Past Medical History?: Yes - Past Social History Smoking Status: Former Smoker - CARDIAC Hx Hypercholesterolemia: Yes Hx Hypertension: Yes - PULMONARY Hx Asthma: Yes Hx Bronchitis: Yes Hx Chronic Obstructive Pulmonary Disease (COPD): Yes (Emphysema) Hx Emphysema: Yes Hx Pneumonia: Yes Hx Sleep Apnea: Yes - NEUROLOGICAL Hx Seizures: No - HEENT Hx HEENT Problems: No - RENAL Hx Chronic Kidney Disease: No - ENDOCRINE/METABOLIC Hx Diabetes Mellitus Type 2: Yes - HEMATOLOGICAL/ONCOLOGICAL Hx Human Immunodeficiency Virus (HIV): Yes - INTEGUMENTARY Hx Dermatological Problems: No - MUSCULOSKELETAL/RHEUMATOLOGICAL Hx Arthritis: Yes - GASTROINTESTINAL Hx Pancreatitis: Yes - GENITOURINARY/GYNECOLOGICAL Hx Sexually Transmitted Disorders: No - PSYCHIATRIC Hx Anxiety: Yes Hx Substance Use: Yes - SURGICAL HISTORY Hx Surgeries: Yes Hx Orthopedic Surgery: Yes (RT KNEE) Other/Comment: comestic surgery to face post getting kicked in face by horse - ANESTHESIA Hx Anesthesia: Yes Hx Anesthesia Reactions: No Hx Malignant Hyperthermia: No Meds Allergies/Adverse Reactions: Allergies Allergy/AdvReac Type Severity Reaction Status Date / Time No Known Allergies Allergy Verified 04/08/18 01:15 - Medications Medications: Current Medications Abacavir Sulfate (Ziagen) 300 mg PO BID [facility] PRN Reason: Protocol Last Admin: 04/14/18 10:28 Dose: Not Given Albuterol/Ipratropium (Duoneb 3 Mg/0.5 Mg (3 Ml) Ud) 3 ml INH RQ4 [facility] Last Admin: 04/14/18 11:42 Dose: 3 ml Alprazolam (Xanax) 0.25 mg PO TID PRN PRN Reason: Anxiety Stop: 04/15/18 04:17 Last Admin: 04/14/18 10:33 Dose: 0.25 mg Aspirin (Aspirin) 325 mg PO DAILY [facility] Last Admin: 04/14/18 10:27 Dose: 325 mg Budesonide (Pulmicort Respules) 0.25 mg INH RQ12 [facility] Last Admin: 04/14/18 08:25 Dose: 0.25 mg Dextrose (Dextrose 50% Inj) 0 ml IV STAT PRN; Protocol PRN Reason: Hypoglycemia Protocol Dextrose (Glutose 15) 0 gm PO ONCE PRN; Protocol PRN Reason: Hypoglycemia Protocol Enoxaparin Sodium (Lovenox) 40 mg SC DAILY [facility] Last Admin: 04/14/18 10:29 Dose: Not Given Famotidine (Pepcid) 20 mg PO DAILY [facility] Last Admin: 04/14/18 10:27 Dose: 20 mg Gabapentin (Neurontin) 300 mg PO TID [facility] Last Admin: 04/14/18 10:27 Dose: 300 mg Glucagon (Glucagen Diagnostic Kit) 0 mg IM STAT PRN; Protocol PRN Reason: Hypoglycemia Protocol Guaifenesin (Mucinex La) 600 mg PO BID PRN PRN Reason: Cough Last Admin: 04/13/18 11:47 Dose: 600 mg Guaifenesin/Dextromethorphan (Robitussin Dm) 10 ml PO Q4H PRN PRN Reason: Cough and congestion Last Admin: 04/14/18 08:10 Dose: 10 ml Ferric Sodium Gluconate Complex 125 mg/ Sodium Chloride 110 mls @ 110 mls/hr IVPB Q24H [facility] Stop: 04/21/18 13:31 Last Admin: 04/13/18 14:01 Dose: 110 mls/hr Insulin Aspart (Novolog) 0 unit SC ACHS [facility] PRN Reason: Protocol Last Admin: 04/14/18 12:18 Dose: 4 units Insulin Detemir (Levemir) 25 unit SC BID [facility] Last Admin: 04/14/18 10:28 Dose: 25 units Montelukast Sodium (Singulair) 10 mg PO HS [facility] Last Admin: 04/13/18 22:28 Dose: 10 mg Prednisone (Prednisone Tab) 20 mg PO DAILY [facility] Last Admin: 04/14/18 10:27 Dose: 20 mg Fluticasone/Salmeterol (Advair Diskus 250/50) 1 puff IH RBID [facility] Last Admin: 04/14/18 08:25 Dose: 1 puff Spironolactone (Aldactone) 25 mg PO BID [facility] Last Admin: 04/14/18 10:27 Dose: 25 mg Physical Exam - Constitutional Appears: No Acute Distress, Chronically Ill - Head Exam Head Exam: ATRAUMATIC, NORMAL INSPECTION - Eye Exam Eye Exam: EOMI. absent: Conjunctival injection, Scleral icterus - ENT Exam ENT Exam: Mucous Membranes Moist, Normal External Ear Exam. absent: Mucous Membranes Dry - Respiratory Exam Respiratory Exam: Rhonchi, Wheezes, NORMAL BREATHING PATTERN. absent: Accessory Muscle Use, Chest Wall Tenderness - Cardiovascular Exam Cardiovascular Exam: REGULAR RHYTHM, RRR - GI/Abdominal Exam GI & Abdominal Exam: Normal Bowel Sounds, Soft. absent: Bruit, Diminished Bowel Sounds, Distended, Firm, Guarding, Hernia, Hyperactive Bowel Sounds, Tenderness - Rectal Exam Additional comments: Pt refused rectal exam - Extremities Exam Extremities exam: Positive for: normal inspection. Negative for: pedal edema - Neurological Exam Neurological exam: Alert, CN II-XII Intact, Oriented x3 - Psychiatric Exam Psychiatric exam: Normal Affect, Normal Mood - Skin Skin Exam: Normal Color, Warm Results - Vital Signs Recent Vital Signs: Last Vital Signs Temp 98.1 F 04/14/18 07:15 Pulse 72 04/14/18 07:15 Resp 20 04/14/18 07:15 BP 144/82 04/14/18 07:15 Pulse Ox 98 04/14/18 07:15 - Labs Result Diagrams: 04/13/18 07:13 04/12/18 13:53 Labs: Laboratory Results - last 24 hr 04/13/18 04/13/18 04/13/18 11:42 17:04 20:50 POC Glucose (mg/dL) 436 H* 410 H* 497 H* 04/13/18 04/14/18 04/14/18 20:52 02:11 06:15 POC Glucose (mg/dL) 365 H 104 180 H 04/14/18 11:57 POC Glucose (mg/dL) 252 H Assessment & Plan - Assessment and Plan (Free Text) Assessment: 62 yo BM with COPD, HIV, Chronic Pancreatitis, DM admitted for COPD, PNA found to have occult blood positive stools. # Chronic Normocytic Anemia, Occult Blood Positive Stool: No signs of active GI bleed. Pt with brown formed stools. Hgb is stable. Pt is overdue for screening colonoscopy. # HCV: Antonina 1b, states not treated but was told he didn'y have anymore # Chronic Pancreatitis: On Creon # HIV on HAART: Follows with Dr. Barry at [facility] Plan: - Recommend outpatient Colonoscopy - No further inpatient GI w/u indicated at this time - Plan to f/u as outpatient to reasses HCV, Chronic Pancreatitis - Encourage continued abstinence from IVDU, EtOH Pt seen and examined with Dr. Schreiber <Mickey Schreiber - Last Filed: 04/14/18 13:12> Meds - Medications Medications: Current Medications Abacavir Sulfate (Ziagen) 300 mg PO BID [facility] PRN Reason: Protocol Last Admin: 04/14/18 10:28 Dose: Not Given Albuterol/Ipratropium (Duoneb 3 Mg/0.5 Mg (3 Ml) Ud) 3 ml INH RQ4 [facility] Last Admin: 04/14/18 11:42 Dose: 3 ml Alprazolam (Xanax) 0.25 mg PO TID PRN PRN Reason: Anxiety Stop: 04/15/18 04:17 Last Admin: 04/14/18 10:33 Dose: 0.25 mg Aspirin (Aspirin) 325 mg PO DAILY [facility] Last Admin: 04/14/18 10:27 Dose: 325 mg Budesonide (Pulmicort Respules) 0.25 mg INH RQ12 [facility] Last Admin: 04/14/18 08:25 Dose: 0.25 mg Dextrose (Dextrose 50% Inj) 0 ml IV STAT PRN; Protocol PRN Reason: Hypoglycemia Protocol Dextrose (Glutose 15) 0 gm PO ONCE PRN; Protocol PRN Reason: Hypoglycemia Protocol Enoxaparin Sodium (Lovenox) 40 mg SC DAILY [facility] Last Admin: 04/14/18 10:29 Dose: Not Given Famotidine (Pepcid) 20 mg PO DAILY [facility] Last Admin: 04/14/18 10:27 Dose: 20 mg Gabapentin (Neurontin) 300 mg PO TID [facility] Last Admin: 04/14/18 10:27 Dose: 300 mg Glucagon (Glucagen Diagnostic Kit) 0 mg IM STAT PRN; Protocol PRN Reason: Hypoglycemia Protocol Guaifenesin (Mucinex La) 600 mg PO BID PRN PRN Reason: Cough Last Admin: 04/13/18 11:47 Dose: 600 mg Guaifenesin/Dextromethorphan (Robitussin Dm) 10 ml PO Q4H PRN PRN Reason: Cough and congestion Last Admin: 04/14/18 08:10 Dose: 10 ml Ferric Sodium Gluconate Complex 125 mg/ Sodium Chloride 110 mls @ 110 mls/hr IVPB Q24H [facility] Stop: 04/21/18 13:31 Last Admin: 04/13/18 14:01 Dose: 110 mls/hr Insulin Aspart (Novolog) 0 unit SC ACHS [facility] PRN Reason: Protocol Last Admin: 04/14/18 12:18 Dose: 4 units Insulin Detemir (Levemir) 25 unit SC BID [facility] Last Admin: 04/14/18 10:28 Dose: 25 units Montelukast Sodium (Singulair) 10 mg PO HS [facility] Last Admin: 04/13/18 22:28 Dose: 10 mg Prednisone (Prednisone Tab) 20 mg PO DAILY [facility] Last Admin: 04/14/18 10:27 Dose: 20 mg Fluticasone/Salmeterol (Advair Diskus 250/50) 1 puff IH RBID [facility] Last Admin: 04/14/18 08:25 Dose: 1 puff Spironolactone (Aldactone) 25 mg PO BID [facility] Last Admin: 04/14/18 10:27 Dose: 25 mg Results - Vital Signs Recent Vital Signs: Last Vital Signs Temp 98.1 F 04/14/18 07:15 Pulse 72 04/14/18 07:15 Resp 20 04/14/18 07:15 BP 144/82 04/14/18 07:15 Pulse Ox 98 04/14/18 07:15 - Labs Result Diagrams: 04/13/18 07:13 04/12/18 13:53 Labs: Laboratory Results - last 24 hr 04/13/18 04/13/18 04/13/18 11:42 17:04 20:50 POC Glucose (mg/dL) 436 H* 410 H* 497 H* 04/13/18 04/14/18 04/14/18 20:52 02:11 06:15 POC Glucose (mg/dL) 365 H 104 180 H 04/14/18 11:57 POC Glucose (mg/dL) 252 H Attending/Attestation - Attestation I have personally seen and examined this patient.: Yes I have fully participated in the care of the patient.: Yes I have reviewed all pertinent clinical information: Yes Notes (Text): 04/14/18 13:00 I have seen and examined patient with GI fellow. Agree with above documentation with the following additions. In brief, this is a 62 year old male with history of prior IVDA, HIV on HAART, HCV, COPD, HTN, DM, chronic pancreatitis who presents to hospital with complaint of progressive dyspnea on exertion, was being treated for COPD exacerbation. GI called for evaluation of worsening anemia with presence of blood in stool. He denies abdominal pain, nausea, vomiting, diarrhea, fever/chills, weight loss, melena, or visible rectal bleeding. No prior endoscopic evaluation. Additional physical examination: Abdomen: no palpable hepato/splenomegaly HIV on HAART HCV COPD DM / HTN chronic pancreatitis Anemia, stool occult blood positive - Diet as tolerated - Continue with antibiotic therapy as per medical team - H/H stable, s/p PRBC transfusion, continue to monitor - Patient would benefit from elective outpatient endoscopic evaluation for anemia along with further follow up of chronic HCV. Office contact information provided to patient. Planned for hospital discharge today, will sign off case. Please reconsult as necessary, thank you.
[2018-04-14 15:22] VITALS: BP 132/81; PULSE 89; TEMP 98.3; O2SAT 95
--- NOTE | 2018-04-14 19:25 | CARD ---
APPROVED REPORT Date of service: 04/10/2018 EKG Measurement Heart [id number] <Conclusion> Normal sinus rhythm Normal ECG
--- NOTE | 2018-04-14 22:31 | CP.PCM.PN ---
Subjective - Date & Time of Evaluation Date of Evaluation: 04/14/18 Time of Evaluation: 11:05 - Subjective Subjective: No complaints. Objective - Vital Signs/Intake and Output Vital Signs (last 24 hours): Temp Pulse Resp BP Pulse Ox 98.3 F 89 20 132/81 95 04/14/18 15:22 04/14/18 15:22 04/14/18 15:22 04/14/18 15:22 04/14/18 15:22 Intake and Output: 04/14/18 04/15/18 18:59 06:59 Output Total 200 Balance -200 - Labs Labs: 04/13/18 07:13 04/12/18 13:53 PT 12.1 SECONDS (9.7-12.2) 04/08/18 01:24 INR 1.1 04/08/18 01:24 APTT 24 SECONDS (21-34) 04/08/18 01:24 - Head Exam Head Exam: ATRAUMATIC - Eye Exam Eye Exam: Normal appearance - ENT Exam ENT Exam: Mucous Membranes Dry - Respiratory Exam Respiratory Exam: NORMAL BREATHING PATTERN - Cardiovascular Exam Cardiovascular Exam: +S1, +S2 - GI/Abdominal Exam GI & Abdominal Exam: Normal Bowel Sounds Assessment and Plan (1) Anemia Assessment & Plan: s/p PRBC transfusion H/H improved iron deficiency on IV iron FOBT positive; outpatient GI endoscopy Status: Acute (2) Cavitary lesion of lung Assessment & Plan: pulm eval Status: Acute
--- NOTE | 2018-04-22 09:23 | DS ---
Copied To: Jana Garcia MD Attending MD: Jana Garcia MD He came into the hospital on 04/08/2018 to the emergency room complaining of short of breath, and he has history of interstitial lung disease. He was coughing, and he was in another hospital and he was asked to leave because of confrontational behavior. He has ongoing heroin abuse as per the ER, but the patient denied using it for a while. He denied fever or chills. His temperature was 98.9. His blood pressure on admission was 87/54. His lung was having rales and rhonchi. His chest x-ray showed no pneumothorax. No acute cardiopulmonary changes found but he was fairly having wheezing all the time. He was started on antibiotics. He was started on Solu-Medrol, and he was also taking nebulizer treatment. He was seen by Dr. Paez in consultation for chest pain. His hemoglobin and hematocrit were 9.2 and 28. For this purpose, he was seen by also Dr. Zion Leon, and he has some blood transfusion. He has iron deficiency, so he was getting iron with the IV, and his stool occult was positive, and he has to be having endoscopy as an outpatient. On 04/14/2018, he was feeling better and he wants to go home. He was discharged on his medications and to follow up in the office. His last hemoglobin was 9.2, hematocrit 28, and his sugar was 152, and he has to have a followup endoscopy by GI in my office. FINAL DIAGNOSES: Acute exacerbation of chronic obstructive pulmonary disease, anemia, iron deficiency, and substance abuse. Jana Garcia MD
== END 2018-04-14 16:31 | disposition home or self-care (01) | DRG 190 ==
LOC: C.ER 01:05 → C.6T 03:23
PROVIDERS: ADMIT Internal Medicine; ATTEND Internal Medicine
PROC: 02HV33Z Insertion of Infusion Device into Superior Vena Cava, Percutaneous Approach (ICD-10-PCS; principal; 2018-04-10)
PROC: 30233N1 Transfusion of Nonautologous Red Blood Cells into Peripheral Vein, Percutaneous Approach (ICD-10-PCS; 2018-04-12)
DX: J44.1 Chronic obstructive pulmonary disease with (acute) exacerbation (principal); J18.9 Pneumonia, unspecified organism; B20 Human immunodeficiency virus [HIV] disease; K86.1 Other chronic pancreatitis; J44.0 Chronic obstructive pulmonary disease with (acute) lower respiratory infection; E11.40 Type 2 diabetes mellitus with diabetic neuropathy, unspecified; E78.00 Pure hypercholesterolemia, unspecified; F11.10 Opioid abuse, uncomplicated; G47.30 Sleep apnea, unspecified; I11.0 Hypertensive heart disease with heart failure; I50.9 Heart failure, unspecified; F17.210 Nicotine dependence, cigarettes, uncomplicated; J98.4 Other disorders of lung; B19.20 Unspecified viral hepatitis C without hepatic coma; R19.5 Other fecal abnormalities; D50.9 Iron deficiency anemia, unspecified; Z91.19 Patient's noncompliance with other medical treatment and regimen; Z79.4 Long term (current) use of insulin

== ENCOUNTER 2018-11-12 23:33 | Inpatient (IN) | payer MEDICARE, MEDICAID ==
[2018-11-12] MEDS ORDERED: Albuterol-Ipratrop 3 mg / 0.5 (3 ml) UD ONE ×2 (23:40→23:52)
[2018-11-12] MEDS ORDERED: Albuterol-Ipratrop 3 mg / 0.5 (3 ml) UD INH STA ×2 (23:40→23:58)
[2018-11-12 23:45] VITALS: BMI 22.1
--- NOTE | 2018-11-13 00:01 | C.PDOC ---
History Of Present Illness 63 year old male with PMHx of COPD and HIV presents to the ED c/o SOB since yesterday. Patient denies fever, chills, nausea, vomit, CP, palpitations, rash, weakness, numbness. Chief Complaint (Nursing): Shortness Of Breath History Per: Patient History/Exam Limitations: no limitations Onset/Duration Of Symptoms: Days (1) Current Symptoms Are (Timing): Still Present Initiating Event: Upper Respiratory Illness Quality: Tightness Current Respiratory Medications: See Home Med List Associated Symptoms: denies: Fever, Chills Recent travel outside of the [place]: No Additional History Per: Patient Past Medical History Reviewed: Historical Data, Nursing Documentation, Vital Signs Vital Signs: Last Vital Signs Temp 97.8 F 11/12/18 23:47 Pulse 140 H 11/12/18 23:47 Resp 22 11/12/18 23:47 BP 120/64 11/12/18 23:47 Pulse Ox 96 11/12/18 23:47 - Medical History PMH: Anemia (blood transfusion), Anxiety, Arthritis, Back Problems, Bronchitis, CHF, COPD, Diabetes (w/ Neuropathy), Emphysema, Hepatitis (C), HIV, HTN, Hyperlipidemia, Pancreatitis, Pneumonia (OCT 2018), Sleep Apnea (occasional uses bipap) Denies: Asthma (denies), Deep Vein Thrombosis, Hypercholesterolemia (denies), Chronic Kidney Disease, Seizures, Sexually Transmitted Disease Comment Only: Fractures (FACIAL FRACTURE WITH PLATE,HAD JAW SX TOO) Surgical History: No Surg Hx Denies: Pacemaker - [facility] Procedures ASSISTANCE WITH RESPIRATORY VENTILATION, 24-96 HRS, CPAP (01/02/17) CENTRAL VENOUS CATHETER PLACEMENT WITH GUIDANCE (10/28/14) INFLUENZA VACCINATION (09/05/14) INSERTION OF INFUSION DEV INTO L SUBCLAV VEIN, PERC APPROACH (09/08/18) INSERTION OF INFUSION DEV INTO SUP VENA CAVA, PERC APPROACH (04/08/18) INTRODUCE OF OTH ANTI-INFECT INTO PERIPH VEIN, PERC APPROACH (09/08/18) INTRODUCE OF OTH THERAP SUBST INTO RESP TRACT, VIA OPENING (08/28/18) INTRODUCTION OF SERUM/TOX/VACCINE INTO MUSCLE, PERC APPROACH (07/17/18) SPINAL TAP (02/05/15) TRANSFUSE NONAUT RED BLOOD CELLS IN PERIPH VEIN, PERC (08/22/18) ULTRASONOGRAPHY OF LEFT UPPER EXTREMITY VEINS, GUIDANCE (09/08/18) VACCINATION NEC (09/21/14) Family History: States: Unknown Family Hx - Social History Hx Tobacco Use: Yes Hx Alcohol Use: No Hx Substance Use: No - Immunization History Hx Tetanus Toxoid Vaccination: No Hx Influenza Vaccination: Yes (2017) Hx Pneumococcal Vaccination: Yes (10/2017) Review Of Systems Constitutional: Negative for: Fever, Chills Cardiovascular: Negative for: Chest Pain, Palpitations Respiratory: Positive for: Shortness of Breath. Negative for: Cough Gastrointestinal: Negative for: Nausea, Vomiting, Abdominal Pain Skin: Negative for: Rash Neurological: Negative for: Weakness, Numbness, Headache, Dizziness Physical Exam - Physical Exam Appears: Non-toxic, In Acute Distress Skin: Normal Color, Warm, Dry Head: Atraumatic, Normacephalic Eye(s): bilateral: Normal Inspection Oral Mucosa: Moist Neck: Normal ROM, Supple Chest: Symmetrical Cardiovascular: Rhythm Regular Respiratory: No Rales, Rhonchi, Wheezing, Other (moderate dyspnic) Gastrointestinal/Abdominal: Soft, No Tenderness, No Guarding, No Rebound Extremity: Normal ROM, No Tenderness, No Swelling Neurological/Psych: Oriented x3, Normal Speech, Normal Cognition Gait: Steady ED Course And Treatment - Laboratory Results Result Diagrams: 11/13/18 00:48 11/13/18 03:52 O2 Sat by Pulse Oximetry: 96 (On RA) Pulse Ox Interpretation: Normal - Other Rad CXR X-Ray: Read By Radiologist Interpretation: Chest, single view. Indication: Shortness of breath. Findings: The cardiac silhouette is moderately enlarged.Atherosclerotic, tortuous calcified aorta. Right upper lobe airspace opacities.There are changes of degenerative joint disease. Impression: Right upper lobe air space disease in the lungs, probably developing pneumonia. . Electronically signed on Nov 13, 2018 3:18:14 AM EDT by: Vibha Townsend M.D., Certified by OTIS, MSK, Neuroradiology. Medical Decision Making Medical Decision Making: Plan: * Duoneb Disposition Discussed With : Jana Garcia Doctor Will See Patient In The: Hospital Counseled Patient/Family Regarding: Diagnosis - Disposition Disposition: HOSPITALIZED Disposition Time: 05:40 Condition: STABLE - POA Present On Arrival: None - Clinical Impression Clinical Impression: Chronic obstructive lung disease, Pneumonia, Diabetes mellitus with ketosis - Scribe Statement The provider has reviewed the documentation as recorded by the Scribe Adelso Nevarez All medical record entries made by the Moeibe were at my direction and personally dictated by me. I have reviewed the chart and agree that the record accurately reflects my personal performance of the history, physical exam, medical decision making, and the department course for this patient. I have also personally directed, reviewed, and agree with the discharge instructions and disposition.
[2018-11-13] MEDS ORDERED: Albuterol-Ipratrop 3 mg / 0.5 (3 ml) UD INH STA (00:09)
[2018-11-13] MEDS ORDERED: Sodium Chloride 0.9% 1,000 ML IV ONE ×3 (00:10→04:09)
[2018-11-13] MEDS ORDERED: (Novolin R) Insulin Human Regular 100 units/ml vial IVP ONE ×2 (00:46→04:36)
[2018-11-13] MEDS ORDERED: Albuterol-Ipratrop 3 mg / 0.5 (3 ml) UD ONE (00:49)
[2018-11-13] MEDS ORDERED: Sodium Chloride 0.9% 1,000 ML ONE ×3 (00:50→06:52)
[2018-11-13 00:52] LABS: BASO % 0.2 % (0.0-2.0); EOS % 0.1 % (0.0-4.0); HEMOGLOBIN 8.8 g/dL (12.0-18.0); LYMPH # 1.2 K/uL (1.0-4.3); LYMPH % 6.4 % (20.0-40.0); MEAN CELL VOLUME 84.5 fL (80.0-94.0); MEAN CORPUSCULAR HEMOGLOBIN 24.8 pg (27.0-31.0); MEAN CORPUSCULAR HGB CONC 29.3 g/dL (33.0-37.0); MONO # 0.7 K/uL (0.0-0.8); MONO % 3.8 % (0.0-10.0); NEUT # 16.9 K/uL (1.8-7.0); NEUT % 89.5 % (50.0-75.0); PLATELET COUNT 512 K/uL (130-400); RBC 3.55 Mil/uL (4.40-5.90); RED CELL DISTRIBUTION WIDTH 17.6 % (11.5-14.5); WHITE BLOOD COUNT 18.9 K/uL (4.8-10.8)
[2018-11-13 01:07] LABS: ALBUMIN 3.6 g/dL (3.5-5.0); ALT/SGPT < 6 U/L (21-72); AST/SGOT 17 U/L (17-59); BLOOD UREA NITROGEN 13 mg/dL (9-20); CALCIUM 8.7 mg/dl (8.6-10.4); GFR NON-AFRICAN AMERICAN > 60
[2018-11-13 01:15] LABS: B-TYPE NATRIURETIC PEPTIDE 247 pg/mL (0-900)
[2018-11-13] MEDS ORDERED: (Novolin R) Insulin Human Regular 100 units/ml vial ONE ×4 (01:19→07:51)
[2018-11-13 01:25] LABS: LYMPHOCYTE 10 % (20-40); MONOCYTE 8 % (0-10); NEUTROPHIL 82 % (50-75); PLATELET ESTIMATE NORMAL (NORMAL); TOTAL CELLS COUNTED 100
[2018-11-13] MEDS ORDERED: cefTRIAXone IV 1 gm in Dextros 50 ML IVPB ONE (02:15)
[2018-11-13] MEDS ORDERED: Azithromycin 500mg/250ML NS 500 MG/250 ML BAG IV STA (02:16)
[2018-11-13] MEDS ORDERED: Azithromycin 500mg/250ML NS 500 MG/250 ML BAG IVPB ONE (02:30)
[2018-11-13] MEDS ORDERED: (Novolin R) Insulin Human Regular 100 units/ml vial IVP STA (03:32)
[2018-11-13 03:41] LABS: ABG ALLEN TEST YES; ARTERIAL BLOOD GAS HCO3 22.7 mmol/L (21-28); ARTERIAL BLOOD GAS HEMOGLOBIN 7.4 g/dL (11.7-17.4); ARTERIAL BLOOD GAS O2 SAT 99.3 % (95-98); ARTERIAL BLOOD GAS PCO2 36 mm/Hg (35-45); ARTERIAL BLOOD GAS PH 7.39 (7.35-7.45); ARTERIAL BLOOD GAS PO2 81 mm/Hg (80-100); ARTERIAL BLOOD GAS TCO2 22.9 mmol/L (22-28)
[2018-11-13 04:14] LABS: BLOOD UREA NITROGEN 13 mg/dL (9-20); CALCIUM 7.7 mg/dl (8.6-10.4); GFR NON-AFRICAN AMERICAN > 60
[2018-11-13] MEDS ORDERED: Sodium Chloride 0.45% 500ml 1,000 ML IV ONE (04:40)
[2018-11-13] MEDS ORDERED: Albuterol HFA 90 mcg/actuation (8 g) IH PRN ×2 (05:49→19:30)
[2018-11-13] MEDS ORDERED: Home Med 1 UNIT (Arformoterol [Brovana] 15 MCG) IH SCH (06:00)
[2018-11-13] MEDS: Sodium Chloride 0.9% 1,000 ML IV SCH ×2 (07:00→17:24)
[2018-11-13] MEDS: Budesonide 0.25 mg/2 ml Inhal Susp UD IH SCH ×3 (07:11→19:55)
[2018-11-13] MEDS: (Novolin R) Insulin Human Regular 100 units/ml vial SC SCH ×4 (07:50→21:38)
[2018-11-13] MEDS: Albuterol-Ipratrop 3 mg / 0.5 (3 ml) UD IH SCH ×3 (08:09→23:31)
--- NOTE | 2018-11-13 09:08 | RAD ---
Date of service: 11/13/2018 HISTORY: Shortness of breath COMPARISON: 07/08/2018 FINDINGS: LUNGS: Focal patchy increased consolidative opacifications seen within the right mid lung zone extending laterally. Right hilar prominence. Diffuse increased interstitial lung markings. Upper lobe granulomatous changes. PLEURA: No significant pleural effusion identified, no pneumothorax apparent. CARDIOVASCULAR: No aortic atherosclerotic calcification present. Normal cardiac size. No pulmonary vascular congestion. OSSEOUS STRUCTURES: No significant abnormalities. VISUALIZED UPPER ABDOMEN: Normal. OTHER FINDINGS: None. IMPRESSION: Developing patchy opacification in the right mid lung zone concerning for possible developing infiltrate. Clinical correlation. Post treatment interval follow-up is recommended to ensure resolution.
--- NOTE | 2018-11-13 10:58 | NM ---
Date of service: 11/13/2018 COMPARISON: 01/17/2015 ventilation-perfusion scan. November 13, 2018 single-view chest TECHNIQUE: 13.6 mCi technetium 99-m Xe-133 Gas. 4.1 mCI technetium 99-m MAA administered intravenously. FINDINGS: VENTILATION COMPONENT: Variable, heterogeneous distribution of radionuclide. Considerable retention of radionuclide on the washout phase indicative lower airway disease/COPD. PERFUSION COMPONENT: Heterogeneous distribution of radionuclide. No geographic, segmental, lobar abnormalities apparent on the present examination. Similar findings identified on the prior perfusion component. IMPRESSION: Low probability ventilation perfusion scan for pulmonary embolism. No significant interval change compared to the prior examination(s).
--- NOTE | 2018-11-13 19:30 | CP.PCM.HP ---
History of Present Illness - History of Present Illness History of Present Illness: pt felt weeke sob coughing came to [place] and admited Present on Admission - Present on Admission Any Indicators Present on Admission: No Review of Systems - Review of Systems Systems not reviewed;Unavailable: Acuity of Condition - Constitutional Constitutional: Fatigue - EENT Eyes: As Per HPI Ears: As Per HPI Nose/Mouth/Throat: As Per HPI - Cardiovascular Cardiovascular: Dyspnea - Respiratory Respiratory: Cough, Dyspnea, Wheezing - Gastrointestinal Gastrointestinal: As Per HPI - Genitourinary Genitourinary: As Per HPI - Reproductive: Male Reproductive:Male: As Per HPI - Musculoskeletal Musculoskeletal: As Per HPI - Integumentary Integumentary: As Per HPI - Neurological Neurological: As Per HPI - Psychiatric Psychiatric: As Per HPI - Endocrine Endocrine: As Per HPI - Hematologic/Lymphatic Hematologic: As Per HPI Past Patient History - Infectious Disease Hx of Infectious Diseases: None - Tetanus Immunizations Tetanus Immunization: Unknown - Past Medical History & Family History Past Medical History?: Yes - Past Social History Smoking Status: Never Smoked - CARDIAC Hx Congestive Heart Failure: Yes Hx Hypercholesterolemia: No (denies) Hx Hypertension: Yes Hx Pacemaker: No - PULMONARY Hx Asthma: No (denies) Hx Bronchitis: Yes Hx Chronic Obstructive Pulmonary Disease (COPD): Yes Hx Emphysema: Yes Hx Pneumonia: Yes (OCT 2018) Hx Sleep Apnea: Yes (occasional uses bipap) - NEUROLOGICAL Hx Seizures: No - HEENT Hx HEENT Problems: Yes Hx Cataracts: Yes (right eye sx) - RENAL Hx Chronic Kidney Disease: No - ENDOCRINE/METABOLIC Hx Diabetes Mellitus Type 2: Yes - HEMATOLOGICAL/ONCOLOGICAL Hx Anemia: Yes (blood transfusion) Hx Human Immunodeficiency Virus (HIV): Yes - INTEGUMENTARY Hx Dermatological Problems: No - MUSCULOSKELETAL/RHEUMATOLOGICAL Hx Arthritis: Yes Hx Fractures: (FACIAL FRACTURE WITH PLATE,HAD JAW SX TOO) - GASTROINTESTINAL Hx Pancreatitis: Yes - GENITOURINARY/GYNECOLOGICAL Hx Sexually Transmitted Disorders: No - PSYCHIATRIC Hx Anxiety: Yes Hx Substance Use: No - SURGICAL HISTORY Hx Mastectomy: No - ANESTHESIA Hx Anesthesia: Yes Hx Anesthesia Reactions: No Hx Malignant Hyperthermia: No Meds Allergies/Adverse Reactions: Allergies Allergy/AdvReac Type Severity Reaction Status Date / Time No Known Allergies Allergy Verified 11/12/18 23:56 Physical Exam - Constitutional Appears: In Acute Distress - Head Exam Head Exam: ATRAUMATIC - Eye Exam Eye Exam: Normal appearance Pupil Exam: NORMAL ACCOMODATION - ENT Exam ENT Exam: Mucous Membranes Moist - Neck Exam Neck exam: Positive for: Normal Inspection - Respiratory Exam Respiratory Exam: Decreased Breath Sounds, Rales, Wheezes - Cardiovascular Exam Cardiovascular Exam: REGULAR RHYTHM - GI/Abdominal Exam GI & Abdominal Exam: Normal Bowel Sounds - Rectal Exam Rectal Exam: Deferred - Exam Exam: NORMAL INSPECTION - Extremities Exam Extremities exam: Positive for: normal inspection - Back Exam Back exam: NORMAL INSPECTION - Neurological Exam Neurological exam: Alert, Oriented x3 - Psychiatric Exam Psychiatric exam: Normal Mood - Skin Skin Exam: Pallor Results - Vital Signs Recent Vital Signs: Last Vital Signs Temp 98.4 F 11/13/18 15:20 Pulse 84 11/13/18 15:25 Resp 20 11/13/18 15:20 BP 112/70 11/13/18 15:20 Pulse Ox 96 11/13/18 18:02 - Labs Result Diagrams: 11/13/18 00:48 11/13/18 03:52 Labs: Laboratory Results - last 24 hr 11/13/18 11/13/18 11/13/18 00:08 00:48 00:48 WBC 18.9 H D RBC 3.55 L Hgb 8.8 L Hct 30.0 L MCV 84.5 D MCH 24.8 L MCHC 29.3 L RDW 17.6 H Plt Count 512 H MPV 8.0 Neut % (Auto) 89.5 H Lymph % (Auto) 6.4 L [place] % (Auto) 3.8 Eos % (Auto) 0.1 Baso % (Auto) 0.2 Neut # (Auto) 16.9 H Lymph # (Auto) 1.2 [place] # (Auto) 0.7 Eos # (Auto) 0.0 Baso # (Auto) 0.0 Neutrophils % (Manual) 82 H Lymphocytes % (Manual) 10 L Monocytes % (Manual) 8 Platelet Estimate Normal D-Dimer, Quantitative 2867 H Puncture Site pCO2 pO2 HCO3 ABG pH ABG Total CO2 ABG O2 Saturation ABG Base Excess ABG Hemoglobin ABG Carboxyhemoglobin POC ABG HHb (Measured) ABG Methemoglobin Narinder Test Hgb O2 Saturation Liter Flow Sodium Potassium Chloride Carbon Dioxide Anion Gap BUN Creatinine Est GFR ( Amer) Est GFR (Non-Af Amer) POC Glucose (mg/dL) 462 H* Random Glucose Lactic Acid Calcium Total Bilirubin AST ALT Alkaline Phosphatase Troponin I NT-Pro-B Natriuret Pep Total Protein Albumin Globulin Albumin/Globulin Ratio B-Hydroxybutyrate 11/13/18 11/13/18 11/13/18 00:48 02:54 02:54 WBC RBC Hgb Hct MCV MCH MCHC RDW Plt Count MPV Neut % (Auto) Lymph % (Auto) [place] % (Auto) Eos % (Auto) Baso % (Auto) Neut # (Auto) Lymph # (Auto) [place] # (Auto) Eos # (Auto) Baso # (Auto) Neutrophils % (Manual) Lymphocytes % (Manual) Monocytes % (Manual) Platelet Estimate D-Dimer, Quantitative Puncture Site pCO2 pO2 HCO3 ABG pH ABG Total CO2 ABG O2 Saturation ABG Base Excess ABG Hemoglobin ABG Carboxyhemoglobin POC ABG HHb (Measured) ABG Methemoglobin Narinder Test Hgb O2 Saturation Liter Flow Sodium 133 Potassium 4.4 Chloride 92 L Carbon Dioxide 25 Anion Gap 20 BUN 13 Creatinine 0.8 Est GFR ( Amer) > 60 Est GFR (Non-Af Amer) > 60 POC Glucose (mg/dL) Random Glucose 456 H* D Lactic Acid 2.2 H Calcium 8.7 Total Bilirubin 0.7 AST 17 D ALT < 6 L D Alkaline Phosphatase 244 H D Troponin I < 0.0120 NT-Pro-B Natriuret Pep 247 Total Protein 7.2 Albumin 3.6 Globulin 3.6 Albumin/Globulin Ratio 1.0 B-Hydroxybutyrate 4.93 H 11/13/18 11/13/18 11/13/18 03:28 03:34 03:52 WBC RBC Hgb Hct MCV MCH MCHC RDW Plt Count MPV Neut % (Auto) Lymph % (Auto) [place] % (Auto) Eos % (Auto) Baso % (Auto) Neut # (Auto) Lymph # (Auto) [place] # (Auto) Eos # (Auto) Baso # (Auto) Neutrophils % (Manual) Lymphocytes % (Manual) Monocytes % (Manual) Platelet Estimate D-Dimer, Quantitative Puncture Site Rra pCO2 36 pO2 81 HCO3 22.7 ABG pH 7.39 ABG Total CO2 22.9 ABG O2 Saturation 99.3 H ABG Base Excess -2.9 L ABG Hemoglobin 7.4 L ABG Carboxyhemoglobin 2.6 H POC ABG HHb (Measured) 0.7 ABG Methemoglobin 1.1 Narinder Test Yes Hgb O2 Saturation 95.6 Liter Flow 2.0 Sodium 133 Potassium 3.8 Chloride 96 L Carbon Dioxide 20 L Anion Gap 21 H BUN 13 Creatinine 0.7 L Est GFR ( Amer) > 60 Est GFR (Non-Af Amer) > 60 POC Glucose (mg/dL) 500 H* Random Glucose 468 H* Lactic Acid Calcium 7.7 L Total Bilirubin AST ALT Alkaline Phosphatase Troponin I NT-Pro-B Natriuret Pep Total Protein Albumin Globulin Albumin/Globulin Ratio B-Hydroxybutyrate 11/13/18 11/13/18 11/13/18 04:29 05:03 07:33 WBC RBC Hgb Hct MCV MCH MCHC RDW Plt Count MPV Neut % (Auto) Lymph % (Auto) [place] % (Auto) Eos % (Auto) Baso % (Auto) Neut # (Auto) Lymph # (Auto) [place] # (Auto) Eos # (Auto) Baso # (Auto) Neutrophils % (Manual) Lymphocytes % (Manual) Monocytes % (Manual) Platelet Estimate D-Dimer, Quantitative Puncture Site pCO2 pO2 HCO3 ABG pH ABG Total CO2 ABG O2 Saturation ABG Base Excess ABG Hemoglobin ABG Carboxyhemoglobin POC ABG HHb (Measured) ABG Methemoglobin Narinder Test Hgb O2 Saturation Liter Flow Sodium Potassium Chloride Carbon Dioxide Anion Gap BUN Creatinine Est GFR ( Amer) Est GFR (Non-Af Amer) POC Glucose (mg/dL) 394 H 248 H 343 H Random Glucose Lactic Acid Calcium Total Bilirubin AST ALT Alkaline Phosphatase Troponin I NT-Pro-B Natriuret Pep Total Protein Albumin Globulin Albumin/Globulin Ratio B-Hydroxybutyrate 11/13/18 11/13/18 11:17 16:48 WBC RBC Hgb Hct MCV MCH MCHC RDW Plt Count MPV Neut % (Auto) Lymph % (Auto) [place] % (Auto) Eos % (Auto) Baso % (Auto) Neut # (Auto) Lymph # (Auto) [place] # (Auto) Eos # (Auto) Baso # (Auto) Neutrophils % (Manual) Lymphocytes % (Manual) Monocytes % (Manual) Platelet Estimate D-Dimer, Quantitative Puncture Site pCO2 pO2 HCO3 ABG pH ABG Total CO2 ABG O2 Saturation ABG Base Excess ABG Hemoglobin ABG Carboxyhemoglobin POC ABG HHb (Measured) ABG Methemoglobin Narinder Test Hgb O2 Saturation Liter Flow Sodium Potassium Chloride Carbon Dioxide Anion Gap BUN Creatinine Est GFR ( Amer) Est GFR (Non-Af Amer) POC Glucose (mg/dL) 445 H* 350 H Random Glucose Lactic Acid Calcium Total Bilirubin AST ALT Alkaline Phosphatase Troponin I NT-Pro-B Natriuret Pep Total Protein Albumin Globulin Albumin/Globulin Ratio B-Hydroxybutyrate Assessment & Plan - Assessment and Plan (Free Text) Assessment: copd exacerbation dmuncontrled aneamia hiv Plan: admit and as ordered - Date & Time Date: 11/13/18 Time: 19:32
[2018-11-14] MEDS ORDERED: guaiFENesin 100 mg/5 ml Syrup UD PO ONE ×2 (03:02→20:10)
[2018-11-14] MEDS: Sodium Chloride 0.9% 1,000 ML IV SCH ×2 (03:42→23:29)
[2018-11-14] MEDS: Albuterol-Ipratrop 3 mg / 0.5 (3 ml) UD IH SCH ×2 (07:45→19:22)
[2018-11-14] MEDS: Budesonide 0.25 mg/2 ml Inhal Susp UD IH SCH ×2 (07:45→19:22)
[2018-11-14] MEDS: (Novolin R) Insulin Human Regular 100 units/ml vial SC SCH ×4 (08:18→21:35)
[2018-11-14 08:45] LABS: MEAN CELL VOLUME 83.1 fL (80.0-94.0); MEAN CORPUSCULAR HEMOGLOBIN 24.7 pg (27.0-31.0); MEAN CORPUSCULAR HGB CONC 29.8 g/dL (33.0-37.0); MEAN PLATELET VOLUME 7.6 fL (7.2-11.7); RBC 2.94 Mil/uL (4.40-5.90); RED CELL DISTRIBUTION WIDTH 17.2 % (11.5-14.5); WHITE BLOOD COUNT 14.5 K/uL (4.8-10.8)
[2018-11-14 08:53] LABS: HEMOGLOBIN 7.3 g/dL (12.0-18.0)
[2018-11-14] MEDS: Multiple Vitamins Tab PO SCH (10:10)
[2018-11-14] MEDS: cefTRIAXone IV 1 gm in Dextros 50 ML IVPB SCH (10:11)
[2018-11-14] MEDS: Enoxaparin 40 mg Syringe SC SCH (10:12)
--- NOTE | 2018-11-14 10:21 | CP.PCM.PN ---
Subjective - Date & Time of Evaluation Date of Evaluation: 11/14/18 Time of Evaluation: 10:18 - Subjective Subjective: feels weeke blood hgb droped to 7.2 today Objective - Vital Signs/Intake and Output Vital Signs (last 24 hours): Temp Pulse Resp BP Pulse Ox 98.1 F 92 H 20 108/67 95 11/14/18 08:24 11/14/18 09:27 11/14/18 08:24 11/14/18 08:24 11/14/18 08:24 - Medications Medications: Current Medications Abacavir Sulfate (Ziagen) 300 mg PO BID [facility]; Protocol Last Admin: 11/14/18 10:12 Dose: 300 mg Albuterol (Ventolin Hfa 90 Mcg/Actuation (8 G)) 2 puff IH RQ6 PRN PRN Reason: Wheezing Albuterol/Ipratropium (Duoneb 3 Mg/0.5 Mg (3 Ml) Ud) 3 ml IH RQ8 [facility] Last Admin: 11/14/18 07:45 Dose: 3 ml Alprazolam (Xanax) 0.25 mg PO Q8 PRN PRN Reason: Anxiety Stop: 11/20/18 05:50 Last Admin: 11/14/18 05:14 Dose: 0.25 mg Amlodipine Besylate (Norvasc) 5 mg PO DAILY [facility] Last Admin: 11/14/18 10:10 Dose: 5 mg Aspirin (Ecotrin) 81 mg PO DAILY [facility] Last Admin: 11/14/18 10:11 Dose: 81 mg Budesonide (Pulmicort Respules) 0.25 mg IH RQ12 [facility] Last Admin: 11/14/18 07:45 Dose: 0.25 mg Enoxaparin Sodium (Lovenox) 40 mg SC DAILY [facility] Last Admin: 11/14/18 10:12 Dose: Not Given Famotidine (Pepcid) 20 mg PO 1000 [facility] Last Admin: 11/14/18 10:11 Dose: 20 mg Gabapentin (Neurontin) 300 mg PO TID [facility] Last Admin: 11/14/18 10:11 Dose: 300 mg Sodium Chloride (Sodium Chloride 0.9%) 1,000 mls @ 100 mls/hr IV .Q10H [facility] Last Admin: 11/14/18 03:42 Dose: 100 mls/hr Azithromycin 500 mg/ Sodium (Chloride) 250 mls @ 250 mls/hr IVPB Q24H [facility]; Protocol Ceftriaxone Sodium (Rocephin Iv 1 Gm Duplex) 50 mls @ 100 mls/hr IVPB DAILY [facility]; Protocol Last Admin: 11/14/18 10:11 Dose: 100 mls/hr Insulin Detemir (Levemir) 10 unit SC DAILY [facility] Insulin Human Regular (Novolin R) 0 unit SC ACHS [facility]; Protocol Last Admin: 11/14/18 08:18 Dose: 8 units Lamivudine (Epivir) 300 mg PO DAILY [facility] Last Admin: 11/14/18 10:12 Dose: 300 mg Montelukast Sodium (Singulair) 10 mg PO HS [facility] Last Admin: 11/13/18 21:49 Dose: 10 mg Multivitamins (Hexavitamin) 1 tab PO DAILY [facility] Last Admin: 11/14/18 10:10 Dose: 1 tab Raltegravir (Isentress) 400 mg PO BID [facility]; Protocol Last Admin: 11/14/18 10:12 Dose: 400 mg - Labs Labs: 11/14/18 08:31 11/13/18 03:52 - Constitutional Appears: Non-toxic - Head Exam Head Exam: ATRAUMATIC - Eye Exam Eye Exam: Normal appearance Pupil Exam: NORMAL ACCOMODATION - ENT Exam ENT Exam: Mucous Membranes Moist - Neck Exam Neck Exam: Full ROM - Respiratory Exam Respiratory Exam: Decreased Breath Sounds, Wheezes - Cardiovascular Exam Cardiovascular Exam: REGULAR RHYTHM - GI/Abdominal Exam GI & Abdominal Exam: Normal Bowel Sounds - Extremities Exam Extremities Exam: Full ROM - Back Exam Back Exam: NORMAL INSPECTION - Neurological Exam Neurological Exam: Normal Gait - Psychiatric Exam Psychiatric exam: Normal Affect - Skin Skin Exam: Pallor Assessment and Plan - Assessment and Plan (Free Text) Assessment: aneamia r/o gi bleeding copd exacerbation Plan: as ordered
[2018-11-14] MEDS: Azithromycin 500 MG in Sodium Chloride 0.9% 250 ML IVPB SCH (12:17)
[2018-11-14] MEDS: Insulin Detemir 100 units/ml Vial (Levemir) SC SCH (12:18)
[2018-11-14] MEDS: LIPASE/PROTEASE/AMYLASE 21,000 U ECC PO SCH ×2 (12:18→18:01)
--- NOTE | 2018-11-14 16:59 | CARD ---
APPROVED REPORT Date of service: 11/12/2018 EKG Measurement Heart [id number] <Conclusion> Sinus tachycardia Possible Left atrial enlargement Borderline ECG
[2018-11-14] MEDS ORDERED: guaiFENesin DM 100 mg-10 mg/5 ml UD PO PRN (21:23)
[2018-11-15] MEDS: Albuterol-Ipratrop 3 mg / 0.5 (3 ml) UD IH SCH ×3 (00:07→08:30)
[2018-11-15 06:54] LABS: ALB/GLOB RATIO 0.9 (1.0-2.1); ALBUMIN 2.7 g/dL (3.5-5.0); ALT/SGPT 15 U/L (21-72); AST/SGOT 18 U/L (17-59); BLOOD UREA NITROGEN 5 mg/dL (9-20); CALCIUM 7.7 mg/dl (8.6-10.4); GFR NON-AFRICAN AMERICAN > 60
[2018-11-15 08:06] LABS: EOS % 0.4 % (0.0-4.0); HEMOGLOBIN 9.1 g/dL (12.0-18.0); LYMPH # 1.3 K/uL (1.0-4.3); MEAN CORPUSCULAR HEMOGLOBIN 25.6 pg (27.0-31.0); MEAN CORPUSCULAR HGB CONC 30.9 g/dL (33.0-37.0); MEAN PLATELET VOLUME 7.7 fL (7.2-11.7); MONO # 0.8 K/uL (0.0-0.8); MONO % 7.3 % (0.0-10.0); NEUT % 80.3 % (50.0-75.0); NRBC % 0.1 % (0.0-2.0); RBC 3.57 Mil/uL (4.40-5.90); RED CELL DISTRIBUTION WIDTH 17.4 % (11.5-14.5); WHITE BLOOD COUNT 11.2 K/uL (4.8-10.8)
[2018-11-15] MEDS: (Novolin R) Insulin Human Regular 100 units/ml vial SC SCH ×4 (08:13→21:31)
[2018-11-15] MEDS: LIPASE/PROTEASE/AMYLASE 21,000 U ECC PO SCH ×3 (08:13→17:10)
[2018-11-15] MEDS: Budesonide 0.25 mg/2 ml Inhal Susp UD IH SCH ×2 (08:30→20:12)
[2018-11-15] MEDS: guaiFENesin DM 100 mg-10 mg/5 ml UD PO PRN ×3 (09:23→21:54)
[2018-11-15] MEDS: Nystatin 100,000 Units/ml Oral Susp 5 ml UD PO SCH ×5 (09:23→21:43)
[2018-11-15] MEDS: Sodium Chloride 0.9% 1,000 ML IV SCH (09:24)
[2018-11-15] MEDS: Insulin Detemir 100 units/ml Vial (Levemir) SC SCH (09:26)
[2018-11-15] MEDS: cefTRIAXone IV 1 gm in Dextros 50 ML IVPB SCH (09:32)
[2018-11-15] MEDS: Multiple Vitamins Tab PO SCH (10:00)
[2018-11-15] MEDS: Enoxaparin 40 mg Syringe SC SCH (10:00)
--- NOTE | 2018-11-15 10:32 | CP.PCM.PN ---
Subjective - Date & Time of Evaluation Date of Evaluation: 11/15/18 Time of Evaluation: 10:29 - Subjective Subjective: pt is coughing a lot wheesing weeke Objective - Vital Signs/Intake and Output Vital Signs (last 24 hours): Temp Pulse Resp BP Pulse Ox 97.7 F 76 20 164/74 H 99 11/15/18 08:19 11/15/18 08:19 11/15/18 08:19 11/15/18 08:19 11/15/18 08:19 Intake and Output: 11/15/18 11/15/18 06:59 18:59 Intake Total 325 Output Total 500 Balance -175 - Medications Medications: Current Medications Abacavir Sulfate (Ziagen) 300 mg PO BID COUNTS INCLUDE 234 BEDS AT THE [facility]; Protocol Last Admin: 11/15/18 10:00 Dose: Not Given Albuterol (Ventolin Hfa 90 Mcg/Actuation (8 G)) 2 puff IH RQ6 PRN PRN Reason: Wheezing Albuterol Sulfate (Albuterol 0.083% Inhal Leandra (2.5 Mg/3 Ml) Ud) 10.2 mg 0.15 mg/kg (10.2 mg) INH RQ6 [facility] Alprazolam (Xanax) 0.25 mg PO Q8 PRN PRN Reason: Anxiety Stop: 11/20/18 05:50 Last Admin: 11/15/18 09:23 Dose: 0.25 mg Amlodipine Besylate (Norvasc) 5 mg PO DAILY COUNTS INCLUDE 234 BEDS AT THE [facility] Last Admin: 11/15/18 10:00 Dose: Not Given Aspirin (Ecotrin) 81 mg PO DAILY COUNTS INCLUDE 234 BEDS AT THE [facility] Last Admin: 11/15/18 10:00 Dose: Not Given Budesonide (Pulmicort Respules) 0.25 mg IH RQ12 COUNTS INCLUDE 234 BEDS AT THE [facility] Last Admin: 11/14/18 19:22 Dose: Not Given Enoxaparin Sodium (Lovenox) 40 mg SC DAILY COUNTS INCLUDE 234 BEDS AT THE [facility] Last Admin: 11/15/18 10:00 Dose: Not Given Famotidine (Pepcid) 20 mg PO 1000 [facility] Last Admin: 11/15/18 10:00 Dose: Not Given Gabapentin (Neurontin) 300 mg PO TID COUNTS INCLUDE 234 BEDS AT THE [facility] Last Admin: 11/15/18 09:33 Dose: 300 mg Guaifenesin/Dextromethorphan (Robitussin Dm) 5 ml PO Q4H PRN PRN Reason: Cough Last Admin: 11/15/18 09:23 Dose: 5 ml Azithromycin 500 mg/ Sodium (Chloride) 250 mls @ 250 mls/hr IVPB Q24H COUNTS INCLUDE 234 BEDS AT THE [facility]; Protocol Last Admin: 11/14/18 12:17 Dose: 250 mls/hr Ceftriaxone Sodium (Rocephin Iv 1 Gm Duplex) 50 mls @ 100 mls/hr IVPB DAILY [facility]; Protocol Last Admin: 11/15/18 09:32 Dose: 100 mls/hr Potassium Chloride (Potassium Chloride 20 Meq/100 Ml) 20 meq in 100 mls @ 50 mls/hr IVPB ONCE ONE Stop: 11/15/18 11:39 Last Admin: 11/15/18 10:20 Dose: 50 mls/hr Insulin Detemir (Levemir) 10 unit SC DAILY COUNTS INCLUDE 234 BEDS AT THE [facility] Last Admin: 11/15/18 09:26 Dose: 10 u Insulin Human Regular (Novolin R) 0 unit SC ACHS COUNTS INCLUDE 234 BEDS AT THE [facility]; Protocol Last Admin: 11/15/18 08:13 Dose: 4 units Lamivudine (Epivir) 300 mg PO DAILY COUNTS INCLUDE 234 BEDS AT THE [facility] Last Admin: 11/15/18 10:00 Dose: Not Given Montelukast Sodium (Singulair) 10 mg PO HS COUNTS INCLUDE 234 BEDS AT THE [facility] Last Admin: 11/14/18 21:35 Dose: 10 mg Multivitamins (Hexavitamin) 1 tab PO DAILY COUNTS INCLUDE 234 BEDS AT THE [facility] Last Admin: 11/15/18 10:00 Dose: Not Given Nystatin (Nystatin Oral Susp) 5 ml PO QID COUNTS INCLUDE 234 BEDS AT THE [facility] Last Admin: 11/15/18 09:23 Dose: 5 ml Potassium Chloride (K-Dur 20 Meq Er Tab) 40 meq PO Q4 COUNTS INCLUDE 234 BEDS AT THE [facility] Stop: 11/15/18 16:01 Raltegravir (Isentress) 400 mg PO BID COUNTS INCLUDE 234 BEDS AT THE [facility]; Protocol Last Admin: 11/15/18 10:00 Dose: Not Given - Labs Labs: 11/15/18 06:34 11/15/18 06:34 - Constitutional Appears: In Acute Distress - Head Exam Head Exam: ATRAUMATIC - Eye Exam Eye Exam: Normal appearance Pupil Exam: NORMAL ACCOMODATION - ENT Exam ENT Exam: Normal Exam - Neck Exam Neck Exam: Full ROM - Respiratory Exam Respiratory Exam: Decreased Breath Sounds, Rales, Rhonchi, Wheezes - Cardiovascular Exam Cardiovascular Exam: REGULAR RHYTHM - GI/Abdominal Exam GI & Abdominal Exam: Normal Bowel Sounds - Extremities Exam Extremities Exam: Normal Inspection - Back Exam Back Exam: NORMAL INSPECTION - Neurological Exam Neurological Exam: Awake, Oriented x3 - Psychiatric Exam Psychiatric exam: Normal Affect - Skin Skin Exam: Pallor Assessment and Plan - Assessment and Plan (Free Text) Assessment: ac aneamia gi bleeding ac exacerbation of copd hiv Plan: as ordered
[2018-11-15] MEDS ORDERED: Dextrose 50% SYRINGE Inj (50 ml) IV PRN (10:34)
[2018-11-15] MEDS ORDERED: Glucagon Recombinant 1 mg Inj IM PRN (10:34)
[2018-11-15] MEDS ORDERED: Insulin Detemir 100 units/ml Vial (Levemir) SC SCH ×2 (10:36→22:00)
[2018-11-15] MEDS: Potassium Chloride 20 mEq ER Tab PO SCH ×2 (12:28→17:13)
[2018-11-15] MEDS: Azithromycin 500 MG in Sodium Chloride 0.9% 250 ML IVPB SCH (12:50)
[2018-11-15] MEDS: MethylPREDNISolone 40 mg Vial IVP SCH ×2 (13:22→21:43)
[2018-11-15] MEDS: Albuterol-Ipratrop 3 mg / 0.5 (3 ml) UD INH SCH ×2 (13:50→20:12)
[2018-11-15] MEDS ORDERED: Albuterol 0.083% Inhal Sol (2.5 mg/3 mL) UD INH SCH (14:00)
[2018-11-15] MEDS ORDERED: (Novolog) Insulin Aspart, Recombinant 100 u/ml 10 ml vial SC ONE (17:00)
[2018-11-15] MEDS ORDERED: (Novolin R) Insulin Human Regular 100 units/ml vial SC ONE ×2 (17:00→21:31)
[2018-11-15] MEDS ORDERED: Potassium Chloride 20 mEq ER Tab PO SCH (17:15)
[2018-11-15 18:20] LABS: INR 1.6; PROTHROMBIN TIME 17.1 SECONDS (9.7-12.2)
--- NOTE | 2018-11-15 23:48 | PN ---
DATE: 11/15/2018 LOCATION: 668, bed A. SUBJECTIVE: This is a 63-year-old male, seen and examined initially for GI consultation on 11/14/2018, re-examined again today with intermittent period of shortness of breath with poor oral intake, less than before with periods of mild nausea and dyspepsia. The entire chart is reviewed including but not limited to the most recent lab and radiology study results, current and the previous medication lists, current and the previous medical events. Case discussed with the staff at length. No reported active GI bleeding. Today's lab results showed white blood cells of 11.2 with hemoglobin 9.1, hematocrit 29.6 with low indices. PT is 17.1. Blood glucose level 370, calcium 7.7. Albumin 2.7 and total protein 5.7. I ordered CEA level reported to be 6.2 with CA 19-9 is 56.2, both are elevated. PHYSICAL EXAMINATION: GENERAL: A 63-year-old male. VITAL SIGNS: With low-grade temperature with pulse of 114, respiratory 20 to 22, blood pressure 106/64. HEENT: Showed pale, dry oral mucous membrane. Nonicteric sclerae. LUNGS: Few scattered crepitation. Decreased air entry at bases. HEART: Positive S1 and S2. ABDOMEN: Soft with mild generalized tenderness. No mass or organomegaly. No rebound tenderness or guarding. EXTREMITIES: Without edema, clubbing or cyanosis. NEUROLOGIC: No reported new neurological deficits, sensory or motor. IMPRESSION: 1. Anemia that could be secondary to chronic disease. 2. Pneumonia. 3. Increased cancer markers, rule out primary gastrointestinal tract cancer. 4. Past medical history including but not limited to severe anxiety syndrome, chronic obstructive pulmonary disease, diabetes mellitus with hypertension and congestive heart failure as well as hyperlipidemia. 5. Known history of pancreatitis, hepatitis C viral infection with human immunodeficiency virus infection. SUGGESTIONS: 1. Continue current management. 2. Barium anemia. 3. Upper GI with small bowel follow-through. 4. Anusol cream HC for local rectal apply. 5. Due to the patient's wheezing, no aggressive GI workup in the meantime. Further recommendation to follow. Sarai Reynolds MD
[2018-11-16] MEDS: Albuterol-Ipratrop 3 mg / 0.5 (3 ml) UD INH SCH ×4 (01:25→19:07)
[2018-11-16] MEDS: (Novolin R) Insulin Human Regular 100 units/ml vial SC SCH ×5 (03:06→21:12)
[2018-11-16] MEDS: MethylPREDNISolone 40 mg Vial IVP SCH ×3 (06:33→21:05)
[2018-11-16] MEDS: Budesonide 0.25 mg/2 ml Inhal Susp UD IH SCH ×2 (07:55→19:07)
[2018-11-16] MEDS: LIPASE/PROTEASE/AMYLASE 21,000 U ECC PO SCH ×4 (08:15→17:49)
[2018-11-16 09:04] LABS: BLOOD UREA NITROGEN 13 mg/dL (9-20); CALCIUM 8.2 mg/dl (8.6-10.4); GFR NON-AFRICAN AMERICAN > 60
[2018-11-16] MEDS ORDERED: Insulin Detemir 100 units/ml Vial (Levemir) SC SCH ×2 (09:49)
[2018-11-16] MEDS: Multiple Vitamins Tab PO SCH (09:55)
[2018-11-16] MEDS: Enoxaparin 40 mg Syringe SC SCH (09:57)
[2018-11-16] MEDS: Nystatin 100,000 Units/ml Oral Susp 5 ml UD PO SCH ×4 (09:58→21:37)
[2018-11-16] MEDS: cefTRIAXone IV 1 gm in Dextros 50 ML IVPB SCH (10:06)
[2018-11-16] MEDS: Azithromycin 500 MG in Sodium Chloride 0.9% 250 ML IVPB SCH (11:05)
[2018-11-16] MEDS ORDERED: Peg-Electrolyte Oral Soln 4L (Golytely) PO ONE (11:45)
--- NOTE | 2018-11-16 12:18 | PN ---
DATE: 11/16/2018 LOCATION: 668, bed A. SUBJECTIVE: This 63-year-old male seen and examined in rounds without reported significant changes with intermittent period of abdominal discomfort. No reported active bleeding with mild nausea and vomiting. No chest pain, palpitation, or reported significant shortness of breath. No chills or fever. The entire chart is reviewed including the most recent lab and radiology study results and today's lab is still pending. PHYSICAL EXAMINATION: GENERAL: A 63-year-old male awake, alert and oriented. VITAL SIGNS: Afebrile, pulse of 82, respiratory rate 20 to 22, blood pressure 120/80. HEENT: Showed pale, dry mucous membrane. Nonicteric sclerae. LUNGS: Few scattered crepitation. Decreased air entry at bases. HEART: Positive S1 and S2. ABDOMEN: Soft with mild generalized tenderness. No mass or organomegaly. No rebound tenderness or guarding. NEUROLOGIC: No reported new neurological deficits, sensory or motor. IMPRESSION: 1. Anemia. 2. Pneumonia. 3. Rule out occult gastrointestinal malignancy due to elevated cancer markers. 4. Known history of hepatitis C viral infection, recurrent pancreatitis. 5. Human immunodeficiency virus. 6. Hypertension. 7. Congestive heart failure. 8. Hyperlipidemia by history. 9. Known history of chronic obstructive pulmonary disease, diabetes mellitus, and severe anxiety syndrome. SUGGESTIONS: 1. Continue current management. 2. Barium enema to be followed by upper GI small bowel follow through. 3. Further recommendation to follow. Sarai Reynolds MD
[2018-11-16] MEDS ORDERED: Bisacodyl 5mg EC Tab PO ONE (17:00)
--- NOTE | 2018-11-16 17:34 | CP.PCM.PN ---
Subjective - Date & Time of Evaluation Date of Evaluation: 11/16/18 Time of Evaluation: 17:31 - Subjective Subjective: pt c/o of passing black stool will go for endoscopy tomorro Objective - Vital Signs/Intake and Output Vital Signs (last 24 hours): Temp Pulse Resp BP Pulse Ox 98.0 F 103 H 18 104/68 98 11/16/18 15:05 11/16/18 15:05 11/16/18 15:05 11/16/18 15:05 11/16/18 15:05 - Medications Medications: Current Medications Abacavir Sulfate (Ziagen) 300 mg PO BID [facility]; Protocol Last Admin: 11/16/18 09:59 Dose: 300 mg Albuterol (Ventolin Hfa 90 Mcg/Actuation (8 G)) 2 puff IH RQ6 PRN PRN Reason: Wheezing Albuterol/Ipratropium (Duoneb 3 Mg/0.5 Mg (3 Ml) Ud) 3 ml INH RQ6 [facility] Last Admin: 11/16/18 13:40 Dose: 3 ml Alprazolam (Xanax) 0.25 mg PO Q8 PRN PRN Reason: Anxiety Stop: 11/20/18 05:50 Last Admin: 11/16/18 10:06 Dose: 0.25 mg Amlodipine Besylate (Norvasc) 5 mg PO DAILY [facility] Last Admin: 11/16/18 09:57 Dose: Not Given Aspirin (Ecotrin) 81 mg PO DAILY [facility] Last Admin: 11/16/18 09:56 Dose: 81 mg Budesonide (Pulmicort Respules) 0.25 mg IH RQ12 [facility] Last Admin: 11/16/18 07:55 Dose: 0.25 mg Dextrose (Dextrose 50% Inj) 0 ml IV STAT PRN; Protocol PRN Reason: Hypoglycemia Protocol Dextrose (Glutose 15) 0 gm PO ONCE PRN; Protocol PRN Reason: Hypoglycemia Protocol Enoxaparin Sodium (Lovenox) 40 mg SC DAILY [facility] Last Admin: 11/16/18 09:57 Dose: Not Given Famotidine (Pepcid) 20 mg PO 1000 [facility] Last Admin: 11/16/18 09:56 Dose: 20 mg Gabapentin (Neurontin) 300 mg PO TID [facility] Last Admin: 11/16/18 14:33 Dose: 300 mg Glucagon (Glucagen Diagnostic Kit) 0 mg IM STAT PRN; Protocol PRN Reason: Hypoglycemia Protocol Guaifenesin/Dextromethorphan (Robitussin Dm) 5 ml PO Q4H PRN PRN Reason: Cough Last Admin: 11/15/18 21:54 Dose: 5 ml Azithromycin 500 mg/ Sodium (Chloride) 250 mls @ 250 mls/hr IVPB Q24H [facility]; Protocol Last Admin: 11/16/18 11:05 Dose: 250 mls/hr Ceftriaxone Sodium (Rocephin Iv 1 Gm Duplex) 50 mls @ 100 mls/hr IVPB DAILY [facility]; Protocol Last Admin: 11/16/18 10:06 Dose: 100 mls/hr Dextrose (Dextrose 5% In Water 1000 Ml) 1,000 mls @ 0 mls/hr IV .Q0M PRN; Protocol PRN Reason: Hypoglycemia Protocol Insulin Detemir (Levemir) 15 unit SC [facility] Insulin Detemir (Levemir) 20 unit SC DAILY [facility] Last Admin: 11/16/18 11:03 Dose: 20 units Insulin Human Regular (Novolin R) 0 unit SC ACHS [facility]; Protocol Last Admin: 11/16/18 11:20 Dose: 10 units Lamivudine (Epivir) 300 mg PO DAILY [facility] Last Admin: 11/16/18 09:55 Dose: 300 mg Methylprednisolone (Solu-Medrol) 40 mg IVP Q8 [facility] Last Admin: 11/16/18 14:33 Dose: 40 mg Metoclopramide HCl (Reglan) 5 mg IVP Q6 [facility] Stop: 11/18/18 12:01 Last Admin: 11/16/18 11:04 Dose: 5 mg Montelukast Sodium (Singulair) 10 mg PO HS [facility] Last Admin: 11/15/18 21:43 Dose: 10 mg Multivitamins (Hexavitamin) 1 tab PO DAILY [facility] Last Admin: 11/16/18 09:55 Dose: 1 tab Nystatin (Nystatin Oral Susp) 5 ml PO QID [facility] Last Admin: 11/16/18 14:34 Dose: 5 ml Raltegravir (Isentress) 400 mg PO BID [facility]; Protocol Last Admin: 11/16/18 09:55 Dose: 400 mg - Labs Labs: 11/15/18 06:34 11/16/18 07:40 PT 17.1 SECONDS (9.7-12.2) H 11/15/18 17:51 INR 1.6 11/15/18 17:51 APTT 34 SECONDS (21-34) 11/15/18 17:51 - Constitutional Appears: Non-toxic - Head Exam Head Exam: ATRAUMATIC - Eye Exam Eye Exam: Normal appearance Pupil Exam: NORMAL ACCOMODATION - ENT Exam ENT Exam: Mucous Membranes Moist - Respiratory Exam Respiratory Exam: Decreased Breath Sounds - Cardiovascular Exam Cardiovascular Exam: REGULAR RHYTHM - GI/Abdominal Exam GI & Abdominal Exam: Normal Bowel Sounds - Exam Exam: NORMAL INSPECTION - Extremities Exam Extremities Exam: Normal Inspection - Back Exam Back Exam: NORMAL INSPECTION - Neurological Exam Neurological Exam: Alert, Awake, Oriented x3 - Psychiatric Exam Psychiatric exam: Normal Affect - Skin Skin Exam: Pallor Assessment and Plan - Assessment and Plan (Free Text) Assessment: aneamia gi bleeding copd hypoxeamia Plan: endo in am
[2018-11-16] MEDS: guaiFENesin DM 100 mg-10 mg/5 ml UD PO PRN ×2 (17:44→21:15)
[2018-11-16] MEDS: Benzocaine/Menthol (Cepacol) Lozenge MT PRN (21:10)
[2018-11-17] MEDS: Albuterol-Ipratrop 3 mg / 0.5 (3 ml) UD INH SCH ×3 (01:34→15:38)
[2018-11-17] MEDS: Benzocaine/Menthol (Cepacol) Lozenge MT PRN (01:41)
[2018-11-17] MEDS: MethylPREDNISolone 40 mg Vial IVP SCH (05:43)
[2018-11-17] MEDS: (Novolin R) Insulin Human Regular 100 units/ml vial SC SCH ×2 (08:03→10:41)
[2018-11-17] MEDS: Budesonide 0.25 mg/2 ml Inhal Susp UD IH SCH (08:10)
[2018-11-17] MEDS ORDERED: MethylPREDNISolone 40 mg Vial IVP SCH (10:00)
[2018-11-17] MEDS ORDERED: Insulin Detemir 100 units/ml Vial (Levemir) SC STA (10:13)
--- NOTE | 2018-11-17 10:18 | CP.PCM.PN ---
Subjective - Date & Time of Evaluation Date of Evaluation: 11/17/18 Time of Evaluation: 10:15 - Subjective Subjective: pt is npo for endoscopy no distress Objective - Vital Signs/Intake and Output Vital Signs (last 24 hours): Temp Pulse Resp BP Pulse Ox 98.1 F 85 18 126/81 99 11/17/18 08:39 11/17/18 08:39 11/17/18 08:39 11/17/18 08:39 11/17/18 08:39 - Medications Medications: Current Medications Abacavir Sulfate (Ziagen) 300 mg PO BID [facility]; Protocol Last Admin: 11/16/18 17:51 Dose: 300 mg Albuterol (Ventolin Hfa 90 Mcg/Actuation (8 G)) 2 puff IH RQ6 PRN PRN Reason: Wheezing Albuterol/Ipratropium (Duoneb 3 Mg/0.5 Mg (3 Ml) Ud) 3 ml INH RQ6 [facility] Last Admin: 11/17/18 01:34 Dose: 3 ml Alprazolam (Xanax) 0.25 mg PO Q8 PRN PRN Reason: Anxiety Stop: 11/20/18 05:50 Last Admin: 11/16/18 21:05 Dose: 0.25 mg Amlodipine Besylate (Norvasc) 5 mg PO DAILY [facility] Last Admin: 11/16/18 09:57 Dose: Not Given Aspirin (Ecotrin) 81 mg PO DAILY [facility] Last Admin: 11/16/18 09:56 Dose: 81 mg Benzocaine/Menthol (Cepacol Sore Throat) 1 janelle MT Q4 PRN PRN Reason: Sore Throat Last Admin: 11/17/18 01:41 Dose: 1 janelle Budesonide (Pulmicort Respules) 0.25 mg IH RQ12 [facility] Last Admin: 11/16/18 19:07 Dose: 0.25 mg Dextrose (Dextrose 50% Inj) 0 ml IV STAT PRN; Protocol PRN Reason: Hypoglycemia Protocol Dextrose (Glutose 15) 0 gm PO ONCE PRN; Protocol PRN Reason: Hypoglycemia Protocol Enoxaparin Sodium (Lovenox) 40 mg SC DAILY [facility] Last Admin: 11/16/18 09:57 Dose: Not Given Famotidine (Pepcid) 20 mg PO 1000 [facility] Last Admin: 11/16/18 09:56 Dose: 20 mg Gabapentin (Neurontin) 300 mg PO TID [facility] Last Admin: 11/16/18 17:54 Dose: 300 mg Glucagon (Glucagen Diagnostic Kit) 0 mg IM STAT PRN; Protocol PRN Reason: Hypoglycemia Protocol Guaifenesin/Dextromethorphan (Robitussin Dm) 5 ml PO Q4H PRN PRN Reason: Cough Last Admin: 11/16/18 21:15 Dose: 5 ml Azithromycin 500 mg/ Sodium (Chloride) 250 mls @ 250 mls/hr IVPB Q24H [facility]; Protocol Last Admin: 11/16/18 11:05 Dose: 250 mls/hr Ceftriaxone Sodium (Rocephin Iv 1 Gm Duplex) 50 mls @ 100 mls/hr IVPB DAILY [facility]; Protocol Last Admin: 11/16/18 10:06 Dose: 100 mls/hr Dextrose (Dextrose 5% In Water 1000 Ml) 1,000 mls @ 0 mls/hr IV .Q0M PRN; Protocol PRN Reason: Hypoglycemia Protocol Insulin Detemir (Levemir) 15 unit SC [facility] Last Admin: 11/16/18 21:05 Dose: 15 units Insulin Detemir (Levemir) 20 unit SC DAILY [facility] Last Admin: 11/16/18 11:03 Dose: 20 units Insulin Detemir (Levemir) 10 unit SC STAT [facility] Stop: 11/17/18 10:14 Insulin Human Regular (Novolin R) 0 unit SC ACHS [facility]; Protocol Last Admin: 11/17/18 08:03 Dose: Not Given Lamivudine (Epivir) 300 mg PO DAILY [facility] Last Admin: 11/16/18 09:55 Dose: 300 mg Methylprednisolone (Solu-Medrol) 20 mg IVP Q12 [facility] Metoclopramide HCl (Reglan) 5 mg IVP Q6 [facility] Stop: 11/18/18 12:01 Last Admin: 11/17/18 05:42 Dose: Not Given Montelukast Sodium (Singulair) 10 mg PO HS [facility] Last Admin: 11/16/18 21:05 Dose: 10 mg Multivitamins (Hexavitamin) 1 tab PO DAILY [facility] Last Admin: 11/16/18 09:55 Dose: 1 tab Nystatin (Nystatin Oral Susp) 5 ml PO QID [facility] Last Admin: 11/16/18 21:37 Dose: 5 ml Raltegravir (Isentress) 400 mg PO BID [facility]; Protocol Last Admin: 11/16/18 17:44 Dose: 400 mg - Labs Labs: 11/15/18 06:34 11/16/18 07:40 PT 17.1 SECONDS (9.7-12.2) H 11/15/18 17:51 INR 1.6 11/15/18 17:51 APTT 34 SECONDS (21-34) 11/15/18 17:51 - Constitutional Appears: Non-toxic - Head Exam Head Exam: ATRAUMATIC - Eye Exam Eye Exam: Normal appearance - ENT Exam ENT Exam: Mucous Membranes Moist - Neck Exam Neck Exam: Normal Inspection - Respiratory Exam Respiratory Exam: Decreased Breath Sounds, Wheezes - Cardiovascular Exam Cardiovascular Exam: REGULAR RHYTHM - GI/Abdominal Exam GI & Abdominal Exam: Soft, Tenderness Additional comments: epigastric area tender - Exam Exam: NORMAL INSPECTION - Extremities Exam Extremities Exam: Full ROM - Neurological Exam Neurological Exam: Alert, Awake, Oriented x3 - Psychiatric Exam Psychiatric exam: Normal Affect - Skin Skin Exam: Pallor Assessment and Plan - Assessment and Plan (Free Text) Assessment: aneamia s/p gi bleeding copd hiv dmid Plan: endo today increse insulin dec steroids
[2018-11-17] MEDS: Multiple Vitamins Tab PO SCH (10:47)
[2018-11-17] MEDS: Enoxaparin 40 mg Syringe SC SCH (10:47)
[2018-11-17] MEDS: Nystatin 100,000 Units/ml Oral Susp 5 ml UD PO SCH ×2 (10:47→14:16)
[2018-11-17] MEDS: cefTRIAXone IV 1 gm in Dextros 50 ML IVPB SCH (10:48)
[2018-11-17] MEDS ORDERED: Lactated Ringer's 1,000 ML IV ONE (11:10)
[2018-11-17 11:45] VITALS: TEMP 98.6; O2SAT 100
[2018-11-17 11:49] VITALS: RESP 22
[2018-11-17 12:22] VITALS: BP 129/78; PULSE 84
[2018-11-17] MEDS: LIPASE/PROTEASE/AMYLASE 21,000 U ECC PO SCH (13:54)
[2018-11-17] MEDS ORDERED: MethylPREDNISolone 40 mg Vial IVP ONE (14:00)
--- NOTE | 2018-11-17 14:06 | CP.PCM.PN ---
Subjective - Date & Time of Evaluation Date of Evaluation: 11/17/18 Time of Evaluation: 13:00 - Subjective Subjective: Patient seen today denies any complaints NAD , tolerating diet after endoscopy, wants to go home s/p Endoscopy - negative ( see full report for details vss reviewed - stable Objective - Vital Signs/Intake and Output Vital Signs (last 24 hours): Temp Pulse Resp BP Pulse Ox 98.6 F 84 22 129/78 100 11/17/18 12:02 11/17/18 12:02 11/17/18 12:02 11/17/18 12:02 11/17/18 12:02 - Medications Medications: Current Medications Abacavir Sulfate (Ziagen) 300 mg PO BID [facility]; Protocol Last Admin: 11/16/18 17:51 Dose: 300 mg Albuterol (Ventolin Hfa 90 Mcg/Actuation (8 G)) 2 puff IH RQ6 PRN PRN Reason: Wheezing Albuterol/Ipratropium (Duoneb 3 Mg/0.5 Mg (3 Ml) Ud) 3 ml INH RQ6 [facility] Last Admin: 11/17/18 08:10 Dose: Not Given Alprazolam (Xanax) 0.25 mg PO Q8 PRN PRN Reason: Anxiety Stop: 11/20/18 05:50 Last Admin: 11/16/18 21:05 Dose: 0.25 mg Amlodipine Besylate (Norvasc) 5 mg PO DAILY [facility] Last Admin: 11/17/18 10:47 Dose: Not Given Benzocaine/Menthol (Cepacol Sore Throat) 1 janelle MT Q4 PRN PRN Reason: Sore Throat Last Admin: 11/17/18 01:41 Dose: 1 janelle Budesonide (Pulmicort Respules) 0.25 mg IH RQ12 [facility] Last Admin: 11/17/18 08:10 Dose: Not Given Dextrose (Dextrose 50% Inj) 0 ml IV STAT PRN; Protocol PRN Reason: Hypoglycemia Protocol Dextrose (Glutose 15) 0 gm PO ONCE PRN; Protocol PRN Reason: Hypoglycemia Protocol Enoxaparin Sodium (Lovenox) 40 mg SC DAILY [facility] Last Admin: 11/17/18 10:47 Dose: Not Given Famotidine (Pepcid) 20 mg PO 1000 [facility] Last Admin: 11/17/18 10:48 Dose: Not Given Gabapentin (Neurontin) 300 mg PO TID [facility] Last Admin: 11/17/18 10:47 Dose: Not Given Glucagon (Glucagen Diagnostic Kit) 0 mg IM STAT PRN; Protocol PRN Reason: Hypoglycemia Protocol Guaifenesin/Dextromethorphan (Robitussin Dm) 5 ml PO Q4H PRN PRN Reason: Cough Last Admin: 11/16/18 21:15 Dose: 5 ml Azithromycin 500 mg/ Sodium (Chloride) 250 mls @ 250 mls/hr IVPB Q24H [facility]; Protocol Last Admin: 11/16/18 11:05 Dose: 250 mls/hr Ceftriaxone Sodium (Rocephin Iv 1 Gm Duplex) 50 mls @ 100 mls/hr IVPB DAILY [facility]; Protocol Last Admin: 11/17/18 10:48 Dose: Not Given Dextrose (Dextrose 5% In Water 1000 Ml) 1,000 mls @ 0 mls/hr IV .Q0M PRN; Protocol PRN Reason: Hypoglycemia Protocol Insulin Detemir (Levemir) 15 unit SC [facility] Last Admin: 11/16/18 21:05 Dose: 15 units Insulin Detemir (Levemir) 20 unit SC DAILY [facility] Last Admin: 11/16/18 11:03 Dose: 20 units Insulin Human Regular (Novolin R) 0 unit SC [facility]; Protocol Last Admin: 11/17/18 10:41 Dose: 6 units Lamivudine (Epivir) 300 mg PO DAILY [facility] Last Admin: 11/16/18 09:55 Dose: 300 mg Montelukast Sodium (Singulair) 10 mg PO HS [facility] Last Admin: 11/16/18 21:05 Dose: 10 mg Multivitamins (Hexavitamin) 1 tab PO DAILY [facility] Last Admin: 11/17/18 10:47 Dose: Not Given Nystatin (Nystatin Oral Susp) 5 ml PO QID [facility] Last Admin: 11/17/18 10:47 Dose: Not Given Raltegravir (Isentress) 400 mg PO BID [facility]; Protocol Last Admin: 11/16/18 17:44 Dose: 400 mg Sucralfate (Carafate Tab) 1 gm PO TID [facility] - Labs Labs: 11/15/18 06:34 11/16/18 07:40 PT 17.1 SECONDS (9.7-12.2) H 11/15/18 17:51 INR 1.6 11/15/18 17:51 APTT 34 SECONDS (21-34) 11/15/18 17:51 Assessment and Plan - Assessment and Plan (Free Text) Assessment: A/P 63 year old male with PMHx of COPD on home o2 , and HIV presents to the ED c/o SOB admitted with exc. COPD, uncontrolled diabetes patient clinically improved with steroids s/p Endoscopy- negative patient wants to go home and do colonoscopy out patient D/w Dr. Garcia, cleared for discharge home today and f/u with Dr. Pagan office for colonoscopy and Dr. Garcia office in 1 week discharge plan discussed with patient who understands and agrees with plan Patient states he has enough insulin pens at home and other medications RX given for prednisone and feso4
[2018-11-17] MEDS: Azithromycin 500 MG in Sodium Chloride 0.9% 250 ML IVPB SCH (14:17)
--- NOTE | 2018-11-18 18:18 | CON ---
DATE: 11/14/[address] Reynolds to Dr. Jana Garcia. I was called for a GI consultation by the admitting medical team. The patient was seen and fully examined on 11/14/2018 for GI consultation as requested by Dr. Jana Garcia. The entire chart is reviewed including but not limited to the most recent lab and radiology study results, current and previous medication list, current and previous medical events, allergy to medication list as well as all the available current and previous medical record. Case discussed at length with the staff in the floor as well as Dr. Jana Garcia and immediately after my physical examination and GI consultation on 11/14/2018. A short handwritten consultation sheet left in the chart at that time. HISTORY OF PRESENT ILLNESS: This is a 63-year-old male was admitted to the hospital with a main complaint of generalized weakness and malaise, shortness of breath, recurrent episode of nausea and vomiting with less oral intake as well as some change of bowel movement habit with persistent dyspepsia. No reported actual chest pain or palpitation. No chills or fever at that time. PAST MEDICAL HISTORY: Including but not limited to, 1. COPD with pneumonia. 2. HIV. 3. Hepatitis C viral infection. 4. Diabetes mellitus, hypertension with hyperlipidemia. 5. Recurrent episode of acute pancreatitis. 6. Osteoarthritis with chronic lower back pain syndrome. 7. Sleep apnea. FAMILY HISTORY: Unknown. SOCIAL HISTORY: Positive for cigarette smoking, but no alcohol intake. CURRENT MEDICATIONS: Post admission medication lists were reviewed. ALLERGIES TO MEDICATIONS: UNKNOWN. LABORATORY DATA: Most recent lab result showed leukocytosis of 14.5, hemoglobin dropped to 7.3, hematocrit 24.4 with low indices highly suggestive of hypochromic microcytic anemia with stool for occult blood positive. The patient still has elevated blood glucose level of 472 with reported lactic acid of 2.2, low calcium 7.4 with alkaline phosphatase 244. Most recent chest x-ray done at the time of the admission, official report is seen, indicative of pneumonia. PHYSICAL EXAMINATION: GENERAL: A 63-year-old male. VITAL SIGNS: Low grade temperature of 99.7, at that time he was seen by me with heart rate of 100, respiratory rate 20-22, and blood pressure of 120/74. HEENT: Showed pale dry oral mucous membrane. Nonicteric sclerae. LUNGS: Few scattered crepitation. Decreased air entry at bases. HEART: Positive S1 and S2. ABDOMEN: Soft with mild generalized tenderness. No mass or organomegaly. No rebound tenderness or guarding. EXTREMITIES: Without significant clubbing, cyanosis or edema. RECTAL: The patient refused. NEUROLOGICAL: No reported new neurological deficits, sensory or motor. IMPRESSION: 1. Hypochromic microcytic anemia with subsequent drop of hemoglobin and hematocrit as well as guaiac-positive stool indicative of gastrointestinal blood loss, upper versus lower. 2. To rule out gastric versus duodenal ulcer, to rule out occult gastrointestinal malignancy. 3. Multiple past medical history as mentioned above. 4. New episode of pneumonia with periods of shortness of breath as presented in the emergency room. 5. Reported increase of cancer markers. The possibility of occult gastrointestinal malignancy was raised. 6. Multiple past medical history including hepatitis C viral infection as mentioned above. SUGGESTIONS: 1. Continue current management. 2. MRCP. 3. Cancer markers. 4. Proton pump inhibitors. 5. Blood transfusion to keep hemoglobin around 10 g percent. 6. Treat underlying pneumonia. 7. Rehydration. 8. The patient may need upper endoscopy to rule out possible upper GI blood loss including possible esophageal varices. 9. The patient refused colonoscopy, barium enema to be scheduled. 10. Further recommendation to follow. Thank you for letting me participate in your patient's case management. Sarai Reynolds MD
--- NOTE | 2018-11-27 14:28 | DS ---
HISTORY OF PRESENT ILLNESS: This patient came on 11/13/2018 through the emergency room. He was feeling weak, had shortness of breath and cough and he had hemoglobin of 7.2 on admission. So, he has severe anemia. He has COPD. He has HIV and diabetes. HOSPITAL COURSE: He was put back on his medications and his white count was high. He had transfusion and he had also repeat blood test, which showed improvement of the anemia. He came up to 9.1 and his sugar was 443. He was still on insulin. His anemia was secondary to GI bleeding because the stool occult was positive. Dr. Reynolds was consulted and he was supposed to go for endoscopy. DISCHARGE INSTRUCTIONS: The patient was n.p.o. to go for endoscopy and he did have the endoscopy. It was negative. He was discharged by the nurse practitioner on 11/17/2018. To follow up after the endoscopy. He may need preparation and followup for the GI bleeding by colonoscopy. Last hemoglobin 9.1. The patient was discharged comfortably and he was having all his prescriptions because he wanted to go home and to come back for the colonoscopy later on. Jana Garcia MD
== END 2018-11-17 16:50 | disposition home or self-care (01) | DRG 811 ==
LOC: C.ER 23:33 → C.9E 11-13 05:08 → C.6T 11-13 10:29
PROVIDERS: ADMIT Internal Medicine; ATTEND Internal Medicine
PROC: 0DB68ZX Excision of Stomach, Via Natural or Artificial Opening Endoscopic, Diagnostic (ICD-10-PCS; principal; 2018-11-17 11:00)
DX: D50.0 Iron deficiency anemia secondary to blood loss (chronic) (principal); E11.10 Type 2 diabetes mellitus with ketoacidosis without coma; J18.9 Pneumonia, unspecified organism; K85.90 Acute pancreatitis without necrosis or infection, unspecified; J44.0 Chronic obstructive pulmonary disease with (acute) lower respiratory infection; I13.0 Hypertensive heart and chronic kidney disease with heart failure and stage 1 through stage 4 chronic kidney disease, or unspecified chronic kidney disease; K92.2 Gastrointestinal hemorrhage, unspecified; J44.1 Chronic obstructive pulmonary disease with (acute) exacerbation; Z21 Asymptomatic human immunodeficiency virus [HIV] infection status; B19.20 Unspecified viral hepatitis C without hepatic coma; E11.40 Type 2 diabetes mellitus with diabetic neuropathy, unspecified; F41.9 Anxiety disorder, unspecified; E11.65 Type 2 diabetes mellitus with hyperglycemia; M47.9 Spondylosis, unspecified; G47.30 Sleep apnea, unspecified; R09.02 Hypoxemia; F17.210 Nicotine dependence, cigarettes, uncomplicated

== ENCOUNTER 2018-11-18 21:46 | Inpatient (IN) | payer MEDICARE, MEDICAID ==
[2018-11-18 21:46] VITALS: BMI 22.1
[2018-11-18] MEDS ORDERED: Albuterol-Ipratrop 3 mg / 0.5 (3 ml) UD INH STA (22:37)
[2018-11-18] MEDS ORDERED: MethylPREDNISolone 40 mg Vial IVP STA (22:37)
--- NOTE | 2018-11-18 22:45 | C.PDOC ---
History Of Present Illness 63 year old male with Hx of HIV and COPD comes in for evaluation, reportedly with cough and SOB. Patient was recently discharged from hospital today. Denies fever. Patient is a poor historian, unknown CD4 count viral load. <Kelechi Aranda - Last Filed: 11/19/18 13:28> <Sunny Guy - Last Filed: 11/19/18 02:46> History Per: Patient History/Exam Limitations: no limitations Onset/Duration Of Symptoms: Hrs Current Symptoms Are (Timing): Still Present Current Respiratory Medications: See Home Med List Associated Symptoms: Other (Cough, SOB). denies: Fever Reports Recently: Hospitalized Recent travel outside of the [place]: No <Kelechi Aranda - Last Filed: 11/19/18 13:28> Time Seen by Provider: 11/18/18 22:29 Chief Complaint (Nursing): Shortness Of Breath Past Medical History Vital Signs: Last Vital Signs Temp 97.7 F 11/18/18 21:55 Pulse 128 H 11/18/18 21:55 Resp 20 11/18/18 22:40 BP 147/82 11/18/18 21:55 Pulse Ox 90 L 11/19/18 00:35 - [facility] Procedures ASSISTANCE WITH RESPIRATORY VENTILATION, 24-96 HRS, CPAP (01/02/17) CENTRAL VENOUS CATHETER PLACEMENT WITH GUIDANCE (10/28/14) INFLUENZA VACCINATION (09/05/14) INSERTION OF INFUSION DEV INTO L SUBCLAV VEIN, PERC APPROACH (09/08/18) INSERTION OF INFUSION DEV INTO SUP VENA CAVA, PERC APPROACH (04/08/18) INTRODUCE OF OTH ANTI-INFECT INTO PERIPH VEIN, PERC APPROACH (09/08/18) INTRODUCE OF OTH THERAP SUBST INTO RESP TRACT, VIA OPENING (08/28/18) INTRODUCTION OF SERUM/TOX/VACCINE INTO MUSCLE, PERC APPROACH (07/17/18) SPINAL TAP (02/05/15) TRANSFUSE NONAUT RED BLOOD CELLS IN PERIPH VEIN, PERC (08/22/18) ULTRASONOGRAPHY OF LEFT UPPER EXTREMITY VEINS, GUIDANCE (09/08/18) VACCINATION NEC (09/21/14) <Sunny Guy - Last Filed: 11/19/18 02:46> Reviewed: Historical Data, Nursing Documentation, Vital Signs Vital Signs: Last Vital Signs Temp 97.7 F 11/18/18 21:55 Pulse 128 H 11/18/18 21:55 Resp 20 11/18/18 21:55 BP 147/82 11/18/18 21:55 Pulse Ox 90 L 11/18/18 21:55 - Medical History PMH: Anemia (blood transfusion), Anxiety, Arthritis, Back Problems, Bronchitis, CHF, COPD, Diabetes (w/ Neuropathy), Emphysema, Hepatitis (C), HIV, HTN, Hyperlipidemia, Pancreatitis, Pneumonia (OCT 2018), Sleep Apnea (occasional uses bipap) Denies: Asthma (denies), Deep Vein Thrombosis, Hypercholesterolemia (denies), Chronic Kidney Disease, Seizures, Sexually Transmitted Disease Comment Only: Fractures (FACIAL FRACTURE WITH PLATE,HAD JAW SX TOO) Surgical History: Denies: Pacemaker - [facility] Procedures ASSISTANCE WITH RESPIRATORY VENTILATION, 24-96 HRS, CPAP (01/02/17) CENTRAL VENOUS CATHETER PLACEMENT WITH GUIDANCE (10/28/14) INFLUENZA VACCINATION (09/05/14) INSERTION OF INFUSION DEV INTO L SUBCLAV VEIN, PERC APPROACH (09/08/18) INSERTION OF INFUSION DEV INTO SUP VENA CAVA, PERC APPROACH (04/08/18) INTRODUCE OF OTH ANTI-INFECT INTO PERIPH VEIN, PERC APPROACH (09/08/18) INTRODUCE OF OTH THERAP SUBST INTO RESP TRACT, VIA OPENING (08/28/18) INTRODUCTION OF SERUM/TOX/VACCINE INTO MUSCLE, PERC APPROACH (07/17/18) SPINAL TAP (02/05/15) TRANSFUSE NONAUT RED BLOOD CELLS IN PERIPH VEIN, PERC (08/22/18) ULTRASONOGRAPHY OF LEFT UPPER EXTREMITY VEINS, GUIDANCE (09/08/18) VACCINATION NEC (09/21/14) Family History: States: Unknown Family Hx - Social History Hx Tobacco Use: Yes Hx Alcohol Use: No Hx Substance Use: No - Immunization History Hx Tetanus Toxoid Vaccination: No Hx Influenza Vaccination: Yes (2016) Hx Pneumococcal Vaccination: Yes (10/2017) <Kelechi Aranda - Last Filed: 11/19/18 13:28> Review Of Systems Constitutional: Negative for: Fever, Chills Cardiovascular: Negative for: Chest Pain, Palpitations Respiratory: Positive for: Cough, Shortness of Breath Gastrointestinal: Negative for: Nausea, Vomiting Neurological: Negative for: Weakness, Numbness <Kelechi Aranda - Last Filed: 11/19/18 13:28> Physical Exam - Physical Exam Appears: Non-toxic Skin: Normal Color, Warm, Dry Head: Atraumatic, Normacephalic Eye(s): bilateral: Normal Inspection Oral Mucosa: Moist Neck: Normal, Supple Chest: Symmetrical, No Tenderness Cardiovascular: Rhythm Regular Respiratory: No Rales, Rhonchi (Scattered), No Wheezing, Other (Diminished breath sounds bilaterally) Gastrointestinal/Abdominal: Soft, No Tenderness Back: No CVA Tenderness Neurological/Psych: Oriented x3, Normal Speech <Kelechi Aranda - Last Filed: 11/19/18 13:28> ED Course And Treatment - Laboratory Results Result Diagrams: 11/18/18 23:35 11/18/18 23:35 Lab Results: PT 16.8 SECONDS (9.7-12.2) H 11/18/18 23:35 INR 1.5 11/18/18 23:35 APTT 43 SECONDS (21-34) H 11/18/18 23:35 D-Dimer, Quantitative 3978 ng/mlDDU (0-243) H 11/18/18 23:35 Troponin I < 0.0120 ng/mL (0.00-0.120) 11/18/18 23:35 NT-Pro-B Natriuret Pep 461 pg/mL (0-900) 11/18/18 23:35 Total Bilirubin 0.5 mg/dL (0.2-1.3) 11/18/18 23:35 AST 8 U/L (17-59) L D 11/18/18 23:35 ALT < 6 U/L (21-72) L D 11/18/18 23:35 Alkaline Phosphatase 216 U/L (38-126) H D 11/18/18 23:35 Total Protein 6.7 g/dL (6.3-8.3) 11/18/18 23:35 Albumin 3.3 g/dL (3.5-5.0) L D 11/18/18 23:35 Globulin 3.3 gm/dL (2.2-3.9) 11/18/18 23:35 Albumin/Globulin Ratio 1.0 (1.0-2.1) 11/18/18 23:35 <Sunny Guy - Last Filed: 11/19/18 02:46> - Laboratory Results Result Diagrams: 11/18/18 23:35 11/18/18 23:35 O2 Sat by Pulse Oximetry: 90 <Kelechi Aranda - Last Filed: 11/19/18 13:28> Medical Decision Making Medical Decision Making: ro copd, pna, pe Plan: * EKG * Blood work * CXR * Duoneb * Solumedrol cxr ? patcy infiltrate as see previous cxr. empric antibiotics and bactrim give n. neb steriods given. no e/o of dka. cta ordered for elevated dimer. case discussed with dr nelson accepts for admission. case endorsed to mine shifter dr guy pending CTA r/o pe and admission. <Kelechi Aranda - Last Filed: 11/19/18 13:28> Disposition Discussed With : Jana Garcia Doctor Will See Patient In The: Hospital Counseled Patient/Family Regarding: Diagnosis - Disposition Disposition Time: 02:42 - POA Present On Arrival: None <Sunny Guy - Last Filed: 11/19/18 02:46> <Kelechi Aranda - Last Filed: 11/19/18 13:28> - Disposition Disposition: HOSPITALIZED Condition: STABLE - Clinical Impression Clinical Impression: Chronic obstructive lung disease, COPD exacerbation, Respiratory tract infection - Scribe Statement The provider has reviewed the documentation as recorded by the Scribe Eduardo Frey All medical record entries made by the Scribe were at my direction and personally dictated by me. I have reviewed the chart and agree that the record accurately reflects my personal performance of the history, physical exam, medical decision making, and the department course for this patient. I have also personally directed, reviewed, and agree with the discharge instructions and disposition. <Kelechi Aranda - Last Filed: 11/19/18 13:28>
[2018-11-18] MEDS ORDERED: Piperacillin/Tazobact 3.375 gm 100 ML IVPB STA (22:49)
[2018-11-18] MEDS ORDERED: Tmp-Smz 800 mg-160 mg DS Tab PO STA (22:50)
[2018-11-18] MEDS ORDERED: Albuterol-Ipratrop 3 mg / 0.5 (3 ml) UD ONE (22:57)
[2018-11-18] MEDS ORDERED: Tmp-Smz 800 mg-160 mg DS Tab ONE (23:36)
[2018-11-18] MEDS ORDERED: Piperacillin/Tazobact 3.375 gm 100 ML IVPB ONE (23:36)
[2018-11-18] MEDS ORDERED: Vancomycin 1 GM 1 GM/250 ML BAG IVPB ONE (23:36)
[2018-11-18 23:41] LABS: BASO % 0.2 % (0.0-2.0); EOS % 0.3 % (0.0-4.0); HEMOGLOBIN 9.2 g/dL (12.0-18.0); MEAN CORPUSCULAR HEMOGLOBIN 25.7 pg (27.0-31.0); MEAN CORPUSCULAR HGB CONC 30.6 g/dL (33.0-37.0); MEAN PLATELET VOLUME 7.5 fL (7.2-11.7); MONO # 0.9 K/uL (0.0-0.8); MONO % 7.3 % (0.0-10.0); NEUT # 10.8 K/uL (1.8-7.0); NEUT % 84.2 % (50.0-75.0); PLATELET COUNT 522 K/uL (130-400); RBC 3.56 Mil/uL (4.40-5.90); RED CELL DISTRIBUTION WIDTH 17.6 % (11.5-14.5); WHITE BLOOD COUNT 12.8 K/uL (4.8-10.8)
[2018-11-18 23:56] LABS: INR 1.5; PROTHROMBIN TIME 16.8 SECONDS (9.7-12.2)
[2018-11-19 00:04] LABS: ALBUMIN 3.3 g/dL (3.5-5.0); ALT/SGPT < 6 U/L (21-72); AST/SGOT 8 U/L (17-59); B-TYPE NATRIURETIC PEPTIDE 461 pg/mL (0-900); BLOOD UREA NITROGEN 16 mg/dL (9-20); CALCIUM 8.4 mg/dl (8.6-10.4); GFR NON-AFRICAN AMERICAN > 60
[2018-11-19] MEDS ORDERED: Sodium Chloride 0.9% 1,000 ML IV ONE (00:06)
[2018-11-19] MEDS ORDERED: Iodixanol 320 MG/ML 100 ML BOTTLE IV ONE (01:18)
[2018-11-19 01:47] LABS: LYMPHOCYTE 2 % (20-40); MONOCYTE 4 % (0-10); NEUTROPHIL 94 % (50-75); TOTAL CELLS COUNTED 100
[2018-11-19 01:49] LABS: PLATELET ESTIMATE INCREASED (NORMAL)
--- NOTE | 2018-11-19 07:05 | RAD ---
Chest x-ray single frontal view History: Chest pain. Comparison: 11/13/2018 Findings: Diffuse increased interstitial lung markings. Venous congestion. Persistent confluent somewhat masslike opacity in the right mid lung zone measuring up 3.8 centimeters. Bilateral hilar prominence. Cardiomegaly. Degenerative changes in the spine. Atherosclerotic calcification at the aortic knob. Impression: Persistent confluent somewhat masslike opacity in the right mid lung zone measuring up 3.8 centimeters. Diffuse increased interstitial lung markings. Venous congestion. Bilateral hilar prominence. Cardiomegaly. Degenerative changes in the spine. Atherosclerotic calcification at the aortic knob.
[2018-11-19] MEDS ORDERED: Home Med 1 UNIT (Arformoterol [Brovana] 15 MCG) IH SCH (07:15)
[2018-11-19] MEDS ORDERED: Glucagon Recombinant 1 mg Inj IM PRN (07:22)
[2018-11-19] MEDS ORDERED: Dextrose 50% SYRINGE Inj (50 ml) IV PRN (07:22)
[2018-11-19] MEDS: (Novolog) Insulin Aspart, Recombinant 100 u/ml 10 ml vial SC SCH ×5 (07:45→21:46)
[2018-11-19] MEDS ORDERED: LAMIVUDINE 300 MG PO SCH (10:00)
[2018-11-19] MEDS ORDERED: MethylPREDNISolone 40 mg Vial IVP SCH (10:00)
[2018-11-19] MEDS: Insulin Detemir 100 units/ml Vial (Levemir) SC SCH ×3 (10:08→21:45)
--- NOTE | 2018-11-19 11:02 | CP.PCM.HP ---
History of Present Illness - History of Present Illness History of Present Illness: pt augustina toed for sob coughing wheesing difficulty breathing Present on Admission - Present on Admission Any Indicators Present on Admission: No Review of Systems - Review of Systems Systems not reviewed;Unavailable: Acuity of Condition - Constitutional Constitutional: Fatigue, Weakness - EENT Eyes: As Per HPI Nose/Mouth/Throat: As Per HPI - Cardiovascular Cardiovascular: Dyspnea, Dyspnea on Exertion - Respiratory Respiratory: Cough, Dyspnea, Wheezing, Chest Congestion - Gastrointestinal Gastrointestinal: As Per HPI - Genitourinary Genitourinary: As Per HPI - Reproductive: Male Reproductive:Male: As Per HPI - Musculoskeletal Musculoskeletal: As Per HPI - Integumentary Integumentary: As Per HPI - Neurological Additional comments: neuropathy - Psychiatric Psychiatric: Anxiety - Endocrine Additional Comments: dmid uncontrolled - Hematologic/Lymphatic Additional comments: aneamia Past Patient History - Infectious Disease Hx of Infectious Diseases: None - Tetanus Immunizations Tetanus Immunization: Unknown - Past Medical History & Family History Past Medical History?: Yes - Past Social History Smoking Status: Former Smoker - CARDIAC Hx Cardiac Disorders: Yes Hx Congestive Heart Failure: Yes Hx Hypercholesterolemia: No (denies) Hx Hypertension: Yes Hx Pacemaker: No - PULMONARY Hx Respiratory Disorders: Yes Hx Asthma: No (denies) Hx Bronchitis: Yes Hx Chronic Obstructive Pulmonary Disease (COPD): Yes Hx Emphysema: Yes Hx Pneumonia: Yes (OCT 2018) Hx Sleep Apnea: Yes (occasional uses bipap) - NEUROLOGICAL Hx Neurological Disorder: No Hx Seizures: No - HEENT Hx HEENT Problems: Yes Hx Cataracts: Yes (right eye sx) - RENAL Hx Chronic Kidney Disease: No - ENDOCRINE/METABOLIC Hx Endocrine Disorders: Yes Hx Diabetes Mellitus Type 2: Yes - HEMATOLOGICAL/ONCOLOGICAL Hx Blood Disorders: Yes Hx Anemia: Yes (blood transfusion) Hx Human Immunodeficiency Virus (HIV): Yes - INTEGUMENTARY Hx Dermatological Problems: No - MUSCULOSKELETAL/RHEUMATOLOGICAL Hx Falls: No - GASTROINTESTINAL Hx Gastrointestinal Disorders: Yes Hx Pancreatitis: Yes - GENITOURINARY/GYNECOLOGICAL Hx Genitourinary Disorders: No Hx Sexually Transmitted Disorders: No - PSYCHIATRIC Hx Psychophysiologic Disorder: Yes Hx Anxiety: Yes Hx Substance Use: Yes - SURGICAL HISTORY Hx Surgeries: Yes Hx Eye Surgery: Yes Hx Mastectomy: No - ANESTHESIA Hx Anesthesia: Yes Hx Anesthesia Reactions: No Hx Malignant Hyperthermia: No Has any member of the family had a problem w/ anesthesia?: No Meds Allergies/Adverse Reactions: Allergies Allergy/AdvReac Type Severity Reaction Status Date / Time No Known Allergies Allergy Verified 11/18/18 22:02 Physical Exam - Constitutional Appears: In Acute Distress - Head Exam Head Exam: ATRAUMATIC - Eye Exam Eye Exam: Normal appearance Pupil Exam: NORMAL ACCOMODATION - ENT Exam ENT Exam: Mucous Membranes Moist - Neck Exam Neck exam: Positive for: Full Rom - Respiratory Exam Respiratory Exam: Decreased Breath Sounds, Prolonged Expiratory Phase, Rhonchi, Wheezes - Cardiovascular Exam Cardiovascular Exam: REGULAR RHYTHM - GI/Abdominal Exam GI & Abdominal Exam: Normal Bowel Sounds - Extremities Exam Extremities exam: Positive for: normal inspection - Back Exam Back exam: NORMAL INSPECTION - Neurological Exam Neurological exam: Alert, Oriented x3 - Psychiatric Exam Psychiatric exam: Normal Affect - Skin Skin Exam: Pallor Results - Vital Signs Recent Vital Signs: Last Vital Signs Temp 98.3 F 11/19/18 08:12 Pulse 80 11/19/18 08:12 Resp 20 11/19/18 08:12 BP 123/69 11/19/18 08:12 Pulse Ox 98 11/19/18 08:12 - Labs Result Diagrams: 11/18/18 23:35 11/18/18 23:35 Labs: Laboratory Results - last 24 hr 11/18/18 11/18/18 11/18/18 23:35 23:35 23:35 WBC 12.8 H RBC 3.56 L Hgb 9.2 L Hct 29.9 L MCV 84.0 MCH 25.7 L MCHC 30.6 L RDW 17.6 H Plt Count 522 H D MPV 7.5 Neut % (Auto) 84.2 H Lymph % (Auto) 8.0 L [place] % (Auto) 7.3 Eos % (Auto) 0.3 Baso % (Auto) 0.2 Neut # (Auto) 10.8 H Lymph # (Auto) 1.0 [place] # (Auto) 0.9 H Eos # (Auto) 0.0 Baso # (Auto) 0.0 Neutrophils % (Manual) 94 H Lymphocytes % (Manual) 2 L Monocytes % (Manual) 4 Platelet Estimate Increased H PT 16.8 H INR 1.5 APTT 43 H D-Dimer, Quantitative 3978 H Sodium 137 Potassium 4.1 Chloride 94 L Carbon Dioxide 31 H Anion Gap 16 BUN 16 Creatinine 0.7 L Est GFR ( Amer) > 60 Est GFR (Non-Af Amer) > 60 Random Glucose 420 H* Calcium 8.4 L Total Bilirubin 0.5 AST 8 L D ALT < 6 L D Alkaline Phosphatase 216 H D Lactate Dehydrogenase 539 Troponin I < 0.0120 NT-Pro-B Natriuret Pep 461 Total Protein 6.7 Albumin 3.3 L D Globulin 3.3 Albumin/Globulin Ratio 1.0 Assessment & Plan - Assessment and Plan (Free Text) Assessment: acexacerbation copd pnumonia high ddimer r/o pe hiv neuropath dmid Plan: as ordered - Date & Time Date: 11/19/18 Time: 11:05
[2018-11-19] MEDS ORDERED: (Novolin 70/30) NPH/Regular 70/30 Units/ml 10 ml vial SC ONE (11:15)
[2018-11-19] MEDS: LIPASE/PROTEASE/AMYLASE 4,200 U ECC PO SCH ×2 (13:04→17:46)
[2018-11-19 14:11] LABS: HEMOGLOBIN 8.9 g/dL (12.0-18.0); MEAN CELL VOLUME 84.2 fL (80.0-94.0); MEAN CORPUSCULAR HEMOGLOBIN 26.7 pg (27.0-31.0); MEAN CORPUSCULAR HGB CONC 31.7 g/dL (33.0-37.0); MEAN PLATELET VOLUME 7.8 fL (7.2-11.7); RBC 3.33 Mil/uL (4.40-5.90); RED CELL DISTRIBUTION WIDTH 17.4 % (11.5-14.5); WHITE BLOOD COUNT 8.7 K/uL (4.8-10.8)
[2018-11-19] MEDS ORDERED: (Novolog) Insulin Aspart, Recombinant 100 u/ml 10 ml vial SC ONE (17:52)
[2018-11-19] MEDS: Budesonide 0.25 mg/2 ml Inhal Susp UD IH SCH (19:41)
[2018-11-19] MEDS: Albuterol-Ipratrop 3 mg / 0.5 (3 ml) UD INH SCH ×2 (19:41→23:50)
[2018-11-19 19:46] LABS: BARBITURATES, UR NEGATIVE (NEGATIVE); BENZODIAZEPINES, UR NEGATIVE (NEGATIVE); PHENCYCLIDINE, UR NEGATIVE (NEGATIVE)
[2018-11-19 19:51] LABS: OPIATES, UR POSITIVE (NEGATIVE)
[2018-11-20] MEDS: Budesonide 0.25 mg/2 ml Inhal Susp UD IH SCH ×2 (07:50→19:05)
[2018-11-20] MEDS: Albuterol-Ipratrop 3 mg / 0.5 (3 ml) UD INH SCH ×5 (07:50→23:32)
[2018-11-20] MEDS: (Novolog) Insulin Aspart, Recombinant 100 u/ml 10 ml vial SC SCH ×4 (08:24→22:01)
[2018-11-20] MEDS: MethylPREDNISolone 40 mg Vial IVP SCH (10:58)
[2018-11-20] MEDS: LIPASE/PROTEASE/AMYLASE 4,200 U ECC PO SCH ×3 (10:59→17:38)
[2018-11-20] MEDS: Insulin Detemir 100 units/ml Vial (Levemir) SC SCH ×2 (11:00→22:01)
[2018-11-20] MEDS: Promethazine 12.5 mg/10 ml Syrup PO PRN ×2 (11:01→23:08)
[2018-11-20] MEDS ORDERED: Nystatin 100,000 Units/ml Oral Susp 5 ml UD PO PRN (14:00)
--- NOTE | 2018-11-20 17:45 | CP.PCM.PN ---
Subjective - Date & Time of Evaluation Date of Evaluation: 11/20/18 Time of Evaluation: 17:43 - Subjective Subjective: c/o feels weeke still sob wheesing hbg dropped 8.2 Objective - Vital Signs/Intake and Output Vital Signs (last 24 hours): Temp Pulse Resp BP Pulse Ox 98.1 F 91 H 20 121/81 97 11/20/18 16:00 11/20/18 16:00 11/20/18 16:00 11/20/18 16:00 11/20/18 16:00 Intake and Output: 11/20/18 11/20/18 06:59 18:59 Intake Total 1000 580 Output Total 1050 575 Balance -50 5 - Medications Medications: Current Medications Abacavir Sulfate (Ziagen) 300 mg PO BID [facility]; Protocol Last Admin: 11/20/18 17:37 Dose: 300 mg Albuterol/Ipratropium (Duoneb 3 Mg/0.5 Mg (3 Ml) Ud) 3 ml INH RQ4 [facility] Last Admin: 11/20/18 15:41 Dose: 3 ml Alprazolam (Xanax) 0.25 mg PO Q8 PRN PRN Reason: Anxiety Stop: 11/26/18 07:10 Last Admin: 11/20/18 11:11 Dose: 0.25 mg Amlodipine Besylate (Norvasc) 5 mg PO DAILY [facility] Last Admin: 11/20/18 10:58 Dose: 5 mg Aspirin (Ecotrin) 81 mg PO DAILY [facility] Last Admin: 11/20/18 10:58 Dose: 81 mg Budesonide (Pulmicort Respules) 0.25 mg IH RQ12 [facility] Last Admin: 11/20/18 07:50 Dose: 0.25 mg Dextrose (Dextrose 50% Inj) 0 ml IV STAT PRN; Protocol PRN Reason: Hypoglycemia Protocol Dextrose (Glutose 15) 0 gm PO ONCE PRN; Protocol PRN Reason: Hypoglycemia Protocol Famotidine (Pepcid) 20 mg PO 1000 [facility] Last Admin: 11/20/18 10:58 Dose: 20 mg Ferrous Sulfate (Feosol) 325 mg PO DAILY [facility] Last Admin: 11/20/18 10:58 Dose: 325 mg Gabapentin (Neurontin) 300 mg PO TID [facility] Last Admin: 11/20/18 17:38 Dose: 300 mg Glucagon (Glucagen Diagnostic Kit) 0 mg IM STAT PRN; Protocol PRN Reason: Hypoglycemia Protocol Heparin Sodium (Porcine) (Heparin) 5,000 units SC Q12 [facility] Last Admin: 11/20/18 11:23 Dose: 5,000 units Dextrose (Dextrose 5% In Water 1000 Ml) 1,000 mls @ 0 mls/hr IV .Q0M PRN; Protocol PRN Reason: Hypoglycemia Protocol Ceftriaxone Sodium 1 gm/ (Sodium Chloride) 100 mls @ 100 mls/hr IVPB DAILY [facility]; Protocol Last Admin: 11/20/18 10:57 Dose: 100 mls/hr Insulin Aspart (Novolog) 0 unit SC ACHS [facility]; Protocol Last Admin: 11/20/18 17:38 Dose: 8 units Insulin Detemir (Levemir) 28 unit SC Q12 [facility] Lamivudine (Epivir) 300 mg PO DAILY [facility] Last Admin: 11/20/18 11:00 Dose: 300 mg Methylprednisolone (Solu-Medrol) 40 mg IVP DAILY [facility] Last Admin: 11/20/18 10:58 Dose: 40 mg Montelukast Sodium (Singulair) 10 mg PO HS [facility] Last Admin: 11/19/18 21:46 Dose: 10 mg Nystatin (Nystatin Oral Susp) 5 ml PO QID PRN PRN Reason: Other Last Admin: 11/20/18 14:41 Dose: 5 ml Nystatin (Nystatin Oral Susp) 5 ml PO QID [facility] Promethazine HCl (Phenergan Syrup) 12.5 mg PO Q6 PRN PRN Reason: Cough and congestion Last Admin: 11/20/18 11:01 Dose: 12.5 mg Raltegravir (Isentress) 400 mg PO BID [facility]; Protocol Last Admin: 11/20/18 17:37 Dose: 400 mg - Labs Labs: 11/19/18 14:07 11/18/18 23:35 PT 16.8 SECONDS (9.7-12.2) H 11/18/18 23:35 INR 1.5 11/18/18 23:35 APTT 43 SECONDS (21-34) H 11/18/18 23:35 - Constitutional Appears: Non-toxic - Head Exam Head Exam: ATRAUMATIC - Eye Exam Eye Exam: Normal appearance Pupil Exam: NORMAL ACCOMODATION - ENT Exam ENT Exam: Mucous Membranes Moist - Neck Exam Neck Exam: Normal Inspection - Respiratory Exam Respiratory Exam: Decreased Breath Sounds, Wheezes - Cardiovascular Exam Cardiovascular Exam: REGULAR RHYTHM - GI/Abdominal Exam GI & Abdominal Exam: Normal Bowel Sounds - Extremities Exam Extremities Exam: Normal Inspection - Back Exam Back Exam: NORMAL INSPECTION - Neurological Exam Neurological Exam: Alert, Awake, Oriented x3 - Psychiatric Exam Psychiatric exam: Normal Affect - Skin Skin Exam: Pallor Assessment and Plan - Assessment and Plan (Free Text) Assessment: copd exacerbation dmid aneamia hx of gi bleeading Plan: as ordered
[2018-11-20] MEDS: Nystatin 100,000 Units/ml Oral Susp 5 ml UD PO SCH ×2 (18:00→22:04)
[2018-11-21] MEDS ORDERED: (Novolog) Insulin Aspart, Recombinant 100 u/ml 10 ml vial SC ONE (02:56)
[2018-11-21] MEDS: Albuterol-Ipratrop 3 mg / 0.5 (3 ml) UD INH SCH ×5 (03:19→20:33)
[2018-11-21] MEDS: Promethazine 12.5 mg/10 ml Syrup PO PRN ×2 (05:00→12:21)
[2018-11-21] MEDS: Budesonide 0.25 mg/2 ml Inhal Susp UD IH SCH ×2 (08:00→20:33)
[2018-11-21] MEDS: (Novolog) Insulin Aspart, Recombinant 100 u/ml 10 ml vial SC SCH ×4 (08:30→22:00)
--- NOTE | 2018-11-21 10:39 | CP.PCM.PN ---
Subjective - Date & Time of Evaluation Date of Evaluation: 11/21/18 Time of Evaluation: 10:36 - Subjective Subjective: has thrush in his mouth on mycoststin still coghing less wheesing refused lab this morning but will have it now feels weeke still has black stool Objective - Vital Signs/Intake and Output Vital Signs (last 24 hours): Temp Pulse Resp BP Pulse Ox 98.2 F 90 20 112/69 100 11/21/18 07:00 11/21/18 07:00 11/21/18 07:00 11/21/18 07:00 11/21/18 07:00 Intake and Output: 11/21/18 11/21/18 06:59 18:59 Intake Total 850 Output Total 1450 Balance -600 - Medications Medications: Current Medications Abacavir Sulfate (Ziagen) 300 mg PO BID [facility]; Protocol Last Admin: 11/20/18 17:37 Dose: 300 mg Albuterol/Ipratropium (Duoneb 3 Mg/0.5 Mg (3 Ml) Ud) 3 ml INH RQ4 [facility] Last Admin: 11/21/18 03:19 Dose: Not Given Alprazolam (Xanax) 0.25 mg PO Q8 PRN PRN Reason: Anxiety Stop: 11/26/18 07:10 Last Admin: 11/20/18 22:29 Dose: 0.25 mg Amlodipine Besylate (Norvasc) 5 mg PO DAILY [facility] Last Admin: 11/20/18 10:58 Dose: 5 mg Aspirin (Ecotrin) 81 mg PO DAILY [facility] Last Admin: 11/20/18 10:58 Dose: 81 mg Budesonide (Pulmicort Respules) 0.25 mg IH RQ12 [facility] Last Admin: 11/20/18 19:05 Dose: Not Given Dextrose (Dextrose 50% Inj) 0 ml IV STAT PRN; Protocol PRN Reason: Hypoglycemia Protocol Dextrose (Glutose 15) 0 gm PO ONCE PRN; Protocol PRN Reason: Hypoglycemia Protocol Famotidine (Pepcid) 20 mg PO 1000 [facility] Last Admin: 11/20/18 10:58 Dose: 20 mg Ferrous Sulfate (Feosol) 325 mg PO DAILY [facility] Last Admin: 11/20/18 10:58 Dose: 325 mg Gabapentin (Neurontin) 300 mg PO TID [facility] Last Admin: 11/20/18 17:38 Dose: 300 mg Glucagon (Glucagen Diagnostic Kit) 0 mg IM STAT PRN; Protocol PRN Reason: Hypoglycemia Protocol Heparin Sodium (Porcine) (Heparin) 5,000 units SC Q12 [facility] Last Admin: 11/20/18 22:00 Dose: Not Given Dextrose (Dextrose 5% In Water 1000 Ml) 1,000 mls @ 0 mls/hr IV .Q0M PRN; Protocol PRN Reason: Hypoglycemia Protocol Ceftriaxone Sodium 1 gm/ (Sodium Chloride) 100 mls @ 100 mls/hr IVPB DAILY [facility]; Protocol Last Admin: 11/20/18 10:57 Dose: 100 mls/hr Insulin Aspart (Novolog) 0 unit SC ACHS [facility]; Protocol Last Admin: 11/21/18 08:30 Dose: 4 units Insulin Detemir (Levemir) 28 unit SC Q12 [facility] Last Admin: 11/20/18 22:01 Dose: 28 units Lamivudine (Epivir) 300 mg PO DAILY [facility] Last Admin: 11/20/18 11:00 Dose: 300 mg Methylprednisolone (Solu-Medrol) 40 mg IVP DAILY [facility] Last Admin: 11/20/18 10:58 Dose: 40 mg Montelukast Sodium (Singulair) 10 mg PO HS [facility] Last Admin: 11/20/18 22:02 Dose: 10 mg Nystatin (Nystatin Oral Susp) 5 ml PO QID [facility] Last Admin: 11/20/18 22:04 Dose: 5 ml Promethazine HCl (Phenergan Syrup) 12.5 mg PO Q6 PRN PRN Reason: Cough and congestion Last Admin: 11/21/18 05:00 Dose: 12.5 mg Raltegravir (Isentress) 400 mg PO BID [facility]; Protocol Last Admin: 11/20/18 17:37 Dose: 400 mg - Labs Labs: 11/19/18 14:07 11/18/18 23:35 PT 16.8 SECONDS (9.7-12.2) H 11/18/18 23:35 INR 1.5 11/18/18 23:35 APTT 43 SECONDS (21-34) H 11/18/18 23:35 - Constitutional Appears: Non-toxic - Head Exam Head Exam: NORMAL INSPECTION - Eye Exam Eye Exam: Normal appearance Pupil Exam: NORMAL ACCOMODATION - ENT Exam ENT Exam: Mucous Membranes Moist - Neck Exam Neck Exam: Full ROM - Respiratory Exam Respiratory Exam: Decreased Breath Sounds, Wheezes - Cardiovascular Exam Cardiovascular Exam: REGULAR RHYTHM - GI/Abdominal Exam GI & Abdominal Exam: Normal Bowel Sounds - Exam Exam: NORMAL INSPECTION - Extremities Exam Extremities Exam: Full ROM - Back Exam Back Exam: NORMAL INSPECTION - Neurological Exam Neurological Exam: Awake, Oriented x3 - Psychiatric Exam Psychiatric exam: Normal Affect - Skin Skin Exam: Pallor Assessment and Plan - Assessment and Plan (Free Text) Assessment: ac exacerbation copd aneamia gi bleeding hx Plan: cont as ordered and gi consult for colonoscopy repeate cbc
[2018-11-21] MEDS: LIPASE/PROTEASE/AMYLASE 4,200 U ECC PO SCH ×3 (10:43→18:21)
[2018-11-21] MEDS: MethylPREDNISolone 40 mg Vial IVP SCH (10:45)
[2018-11-21] MEDS: Insulin Detemir 100 units/ml Vial (Levemir) SC SCH ×2 (10:45→22:00)
[2018-11-21] MEDS: Nystatin 100,000 Units/ml Oral Susp 5 ml UD PO SCH ×4 (10:46→22:00)
[2018-11-21 13:05] LABS: HEMOGLOBIN 8.3 g/dL (12.0-18.0); MEAN CORPUSCULAR HEMOGLOBIN 26.5 pg (27.0-31.0); MEAN CORPUSCULAR HGB CONC 32.5 g/dL (33.0-37.0); MEAN PLATELET VOLUME 7.4 fL (7.2-11.7); RBC 3.15 Mil/uL (4.40-5.90); RED CELL DISTRIBUTION WIDTH 17.2 % (11.5-14.5); WHITE BLOOD COUNT 9.7 K/uL (4.8-10.8)
[2018-11-21 13:15] LABS: MEAN CELL VOLUME 81.7 fL (80.0-94.0)
[2018-11-21 13:25] LABS: INR 1.3; PROTHROMBIN TIME 14.2 SECONDS (9.7-12.2)
--- NOTE | 2018-11-21 14:21 | NM ---
Date of service: 11/21/2018 COMPARISON: 11/13/2018. Ventilation perfusion scan. Summary of findings on the comparison examination: Low probability ventilation perfusion scan for pulmonary embolism. 11/18/2018 single-view chest TECHNIQUE: 11.6 mCi technetium 99-m Xe-133 Gas. 4.1 mCI technetium 99-m MAA administered intravenously. FINDINGS: VENTILATION COMPONENT: Heterogeneous ventilation, focal diminished ventilation right upper lobe corresponding to findings on recent chest radiograph. PERFUSION COMPONENT: Heterogeneous perfusion. This is particularly evident in the area of the evolving right upper lobe infiltrate. IMPRESSION: Low probability ventilation perfusion scan for pulmonary embolism. No significant interval change compared to the prior examination(s).
--- NOTE | 2018-11-21 15:20 | CP.PCM.CON ---
History of Present Illness - History of Present Illness History of Present Illness: 63 year old male with past medical history of HIV on HAART, COPD on 2L home oxygen, HTN, DM, untreated hepatitis C, cataracts, and chronic pancreatitis, presenting with shortness of breath for the past 2 days. Patient has had multiple hospital visits and admissions for the same complaint. Patient is also complaining of a productive cough that started last week. He describes his sputum to be clear and sometimes yellowish in color. He denies dysuria, burning, hematuria, or penile discharge. Patient refused bronchoscopy in the past for lung mass and reiterates that 12 system ROS reviewed and negative except mentioned in HPI. Past medical history: HIV on HARRT (CD4: 213, Viral load undetected on 08/22/2018), COPD on 2L home oxygen, HTN, DM, untreated hepatitis C, cataracts, and chronic pancreatitis. Past surgical history: Right Cataract Surgery Family history: denies Social history: 1PPD for 51 years. Quit about 10 years ago. Used to drink EtOH but quit 40 years ago; could not quantify how much. Patient used to use drugs but quit 14 years ago. Lives in alone. Allergies: denies Review of Systems - Review of Systems All systems: reviewed and no additional remarkable complaints except (Shortness of breath and cough) Past Patient History - Infectious Disease Hx of Infectious Diseases: None - Tetanus Immunizations Tetanus Immunization: Unknown - Past Medical History & Family History Past Medical History?: Yes - Past Social History Smoking Status: Former Smoker - CARDIAC Hx Congestive Heart Failure: Yes Hx Hypercholesterolemia: No Hx Hypertension: Yes - PULMONARY Hx Chronic Obstructive Pulmonary Disease (COPD): Yes - NEUROLOGICAL Hx Seizures: No - HEENT Hx HEENT Problems: Yes Hx Cataracts: Yes (right eye sx) - RENAL Hx Chronic Kidney Disease: No - ENDOCRINE/METABOLIC Hx Endocrine Disorders: Yes Hx Diabetes Mellitus Type 2: Yes - HEMATOLOGICAL/ONCOLOGICAL Hx Anemia: Yes (blood transfusion) Hx Human Immunodeficiency Virus (HIV): Yes - INTEGUMENTARY Hx Dermatological Problems: No - MUSCULOSKELETAL/RHEUMATOLOGICAL Hx Arthritis: Yes (KNEES) - GASTROINTESTINAL Hx Pancreatitis: Yes - GENITOURINARY/GYNECOLOGICAL Hx Sexually Transmitted Disorders: No - PSYCHIATRIC Hx Anxiety: Yes Hx Substance Use: No - SURGICAL HISTORY Hx Surgeries: Yes Hx Eye Surgery: Yes Hx Mastectomy: No - ANESTHESIA Hx Anesthesia: Yes Hx Anesthesia Reactions: No Hx Malignant Hyperthermia: No Has any member of the family had a problem w/ anesthesia?: No Meds Allergies/Adverse Reactions: Allergies Allergy/AdvReac Type Severity Reaction Status Date / Time No Known Allergies Allergy Verified 11/18/18 22:02 - Medications Medications: Current Medications Abacavir Sulfate (Ziagen) 300 mg PO BID REPLACED BY [facility]; Protocol Last Admin: 11/21/18 10:43 Dose: 300 mg Albuterol/Ipratropium (Duoneb 3 Mg/0.5 Mg (3 Ml) Ud) 3 ml INH RQ4 REPLACED BY [facility] Last Admin: 11/21/18 12:00 Dose: Not Given Alprazolam (Xanax) 0.25 mg PO Q8 PRN PRN Reason: Anxiety Stop: 11/26/18 07:10 Last Admin: 11/20/18 22:29 Dose: 0.25 mg Amlodipine Besylate (Norvasc) 5 mg PO DAILY REPLACED BY [facility] Last Admin: 11/21/18 10:45 Dose: 5 mg Aspirin (Ecotrin) 81 mg PO DAILY REPLACED BY [facility] Last Admin: 11/21/18 10:45 Dose: 81 mg Budesonide (Pulmicort Respules) 0.25 mg IH RQ12 REPLACED BY [facility] Last Admin: 11/21/18 08:00 Dose: Not Given Dextrose (Dextrose 50% Inj) 0 ml IV STAT PRN; Protocol PRN Reason: Hypoglycemia Protocol Dextrose (Glutose 15) 0 gm PO ONCE PRN; Protocol PRN Reason: Hypoglycemia Protocol Famotidine (Pepcid) 20 mg PO 1000 [facility] Last Admin: 11/21/18 10:44 Dose: 20 mg Ferrous Sulfate (Feosol) 325 mg PO DAILY REPLACED BY [facility] Last Admin: 11/21/18 10:44 Dose: 325 mg Gabapentin (Neurontin) 300 mg PO TID REPLACED BY [facility] Last Admin: 11/21/18 13:53 Dose: 300 mg Glucagon (Glucagen Diagnostic Kit) 0 mg IM STAT PRN; Protocol PRN Reason: Hypoglycemia Protocol Heparin Sodium (Porcine) (Heparin) 5,000 units SC Q12 REPLACED BY [facility] Last Admin: 11/21/18 10:46 Dose: Not Given Dextrose (Dextrose 5% In Water 1000 Ml) 1,000 mls @ 0 mls/hr IV .Q0M PRN; Protocol PRN Reason: Hypoglycemia Protocol Ceftriaxone Sodium 1 gm/ (Sodium Chloride) 100 mls @ 100 mls/hr IVPB DAILY REPLACED BY [facility]; Protocol Last Admin: 11/21/18 10:45 Dose: 100 mls/hr Insulin Aspart (Novolog) 0 unit SC ACHS REPLACED BY [facility]; Protocol Last Admin: 11/21/18 12:21 Dose: 3 units Insulin Detemir (Levemir) 28 unit SC Q12 REPLACED BY [facility] Last Admin: 11/21/18 10:45 Dose: 28 units Lamivudine (Epivir) 300 mg PO DAILY REPLACED BY [facility] Last Admin: 11/21/18 10:44 Dose: 300 mg Methylprednisolone (Solu-Medrol) 40 mg IVP DAILY REPLACED BY [facility] Last Admin: 11/21/18 10:45 Dose: 40 mg Montelukast Sodium (Singulair) 10 mg PO HS REPLACED BY [facility] Last Admin: 11/20/18 22:02 Dose: 10 mg Nystatin (Nystatin Oral Susp) 5 ml PO QID REPLACED BY [facility] Last Admin: 11/21/18 13:53 Dose: 5 ml Promethazine HCl (Phenergan Syrup) 12.5 mg PO Q6 PRN PRN Reason: Cough and congestion Last Admin: 11/21/18 12:21 Dose: 12.5 mg Raltegravir (Isentress) 400 mg PO BID REPLACED BY [facility]; Protocol Last Admin: 11/21/18 10:45 Dose: 400 mg Physical Exam - Head Exam Head Exam: ATRAUMATIC, NORMOCEPHALIC - ENT Exam ENT Exam: Mucous Membranes Moist - Neck Exam Neck exam: Positive for: Normal Inspection - Respiratory Exam Respiratory Exam: Decreased Breath Sounds - Cardiovascular Exam Cardiovascular Exam: REGULAR RHYTHM - GI/Abdominal Exam GI & Abdominal Exam: Normal Bowel Sounds - Extremities Exam Extremities exam: Positive for: normal inspection Results - Vital Signs Recent Vital Signs: Last Vital Signs Temp 98.2 F 11/21/18 07:00 Pulse 90 11/21/18 07:00 Resp 20 11/21/18 07:00 BP 112/69 11/21/18 07:00 Pulse Ox 100 11/21/18 07:00 - Labs Result Diagrams: 11/21/18 12:51 11/18/18 23:35 Labs: Laboratory Results - last 24 hr 11/20/18 11/20/18 11/21/18 16:28 21:13 02:15 WBC RBC Hgb Hct MCV MCH MCHC RDW Plt Count MPV PT INR APTT POC Glucose (mg/dL) 358 H 286 H 446 H* 11/21/18 11/21/1811/21/19 06:59 11:12 12:51 WBC 9.7 RBC 3.15 L Hgb 8.3 L Hct 25.7 L MCV 81.7 D MCH 26.5 L MCHC 32.5 L RDW 17.2 H Plt Count 463 H MPV 7.4 PT INR APTT POC Glucose (mg/dL) 274 H 225 H 11/21/18 12:51 WBC RBC Hgb Hct MCV MCH MCHC RDW Plt Count MPV PT 14.2 H INR 1.3 APTT 40 H POC Glucose (mg/dL) Assessment & Plan (1) COPD exacerbation Assessment and Plan: Continue nebulizer treatment and budesonide IV steroids Incentive spirometry Continue antibiotics Chest PT Status: Acute Priority: High (2) Cavitary lesion of lung Assessment and Plan: Patient refused bronchoscopy in the past and still refusing Status: Acute
[2018-11-21] MEDS ORDERED: Azithromycin 500mg/250ML NS 500 MG/250 ML BAG IVPB SCH (16:15)
[2018-11-21] MEDS: Azithromycin 500mg/250ML NS 500 MG/250 ML BAG IVPB SCH (17:28)
--- NOTE | 2018-11-21 18:04 | RAD ---
Date of service: 11/21/2018 HISTORY: Shortness of breath COMPARISON: 11/18/2018 TECHNIQUE: Chest PA and lateral FINDINGS: LINES AND TUBES: None. LUNG AND PLEURA: There is an asymmetric mass-like airspace disease in the right upper lobe. There is mild interstitial thickening in the right lung. The left lung is well inflated. There is mild pulmonary venous congestion. No focal consolidation in the left lung. Suspect small right pleural effusion. No large left pleural effusion. No pneumothorax. HEART AND MEDIASTINUM: The heart is not enlarged. No aortic atherosclerotic calcifications present. The hilar and mediastinal contours are within normal limits. SKELETAL STRUCTURES: The bony structures are within normal limits for the patient's age. VISUALIZED UPPER ABDOMEN: Normal. OTHER FINDINGS: None. IMPRESSION: Suspect right upper lobe mass/consolidation. Interstitial thickening in the right lung could represent lymphangitis carcinomatosis or interstitial pneumonitis. Suspect small right pleural effusion. Clinical follow-up is advised and correlation with CT scan of the thorax with intravenous contrast is recommended.
[2018-11-22] MEDS: Albuterol-Ipratrop 3 mg / 0.5 (3 ml) UD INH SCH ×6 (00:31→23:58)
[2018-11-22] MEDS: Promethazine 12.5 mg/10 ml Syrup PO PRN ×3 (00:57→16:36)
[2018-11-22] MEDS: Budesonide 0.25 mg/2 ml Inhal Susp UD IH SCH ×2 (08:00→19:18)
[2018-11-22] MEDS: (Novolog) Insulin Aspart, Recombinant 100 u/ml 10 ml vial SC SCH ×4 (08:38→21:11)
[2018-11-22] MEDS: MethylPREDNISolone 40 mg Vial IVP SCH (10:20)
[2018-11-22] MEDS: Nystatin 100,000 Units/ml Oral Susp 5 ml UD PO SCH ×4 (10:21→21:40)
[2018-11-22] MEDS: LIPASE/PROTEASE/AMYLASE 4,200 U ECC PO SCH ×3 (10:21→17:44)
[2018-11-22] MEDS: Insulin Detemir 100 units/ml Vial (Levemir) SC SCH ×2 (10:29→21:39)
[2018-11-22] MEDS ORDERED: Phytonadione 10 mg/ml Inj (Adult) SC ONE (10:45)
--- NOTE | 2018-11-22 10:58 | CP.PCM.PN ---
Subjective - Date & Time of Evaluation Date of Evaluation: 11/22/18 Time of Evaluation: 10:56 - Subjective Subjective: less wheesing still black stool for coloscopy today Objective - Vital Signs/Intake and Output Vital Signs (last 24 hours): Temp Pulse Resp BP Pulse Ox 99.2 F 90 20 106/67 98 11/22/18 07:00 11/22/18 07:00 11/22/18 07:00 11/22/18 07:00 11/22/18 07:00 Intake and Output: 11/22/18 11/22/18 06:59 18:59 Intake Total 700 500 Output Total 400 Balance 700 100 - Medications Medications: Current Medications Abacavir Sulfate (Ziagen) 300 mg PO BID [facility]; Protocol Last Admin: 11/22/18 10:21 Dose: 300 mg Albuterol/Ipratropium (Duoneb 3 Mg/0.5 Mg (3 Ml) Ud) 3 ml INH RQ4 [facility] Last Admin: 11/22/18 08:00 Dose: Not Given Alprazolam (Xanax) 0.25 mg PO Q8 PRN PRN Reason: Anxiety Stop: 11/26/18 07:10 Last Admin: 11/22/18 00:55 Dose: 0.25 mg Amlodipine Besylate (Norvasc) 5 mg PO DAILY [facility] Last Admin: 11/22/18 10:20 Dose: 5 mg Aspirin (Ecotrin) 81 mg PO DAILY [facility] Last Admin: 11/22/18 10:20 Dose: 81 mg Bisacodyl (Dulcolax) 10 mg PO ONCE ONE Stop: 11/22/18 17:01 Budesonide (Pulmicort Respules) 0.25 mg IH RQ12 [facility] Last Admin: 11/22/18 08:00 Dose: Not Given Dextrose (Dextrose 50% Inj) 0 ml IV STAT PRN; Protocol PRN Reason: Hypoglycemia Protocol Dextrose (Glutose 15) 0 gm PO ONCE PRN; Protocol PRN Reason: Hypoglycemia Protocol Famotidine (Pepcid) 20 mg PO 1000 [facility] Last Admin: 11/22/18 10:20 Dose: 20 mg Ferrous Sulfate (Feosol) 325 mg PO DAILY [facility] Last Admin: 11/22/18 10:20 Dose: 325 mg Gabapentin (Neurontin) 300 mg PO TID [facility] Last Admin: 11/22/18 10:20 Dose: 300 mg Glucagon (Glucagen Diagnostic Kit) 0 mg IM STAT PRN; Protocol PRN Reason: Hypoglycemia Protocol Heparin Sodium (Porcine) (Heparin) 5,000 units SC Q12 [facility] Last Admin: 11/22/18 10:21 Dose: Not Given Ceftriaxone Sodium 1 gm/ (Sodium Chloride) 100 mls @ 100 mls/hr IVPB DAILY [facility]; Protocol Last Admin: 11/22/18 10:55 Dose: 100 mls/hr Azithromycin (Zithromax 500mg In Ns Addvantage) 500 mg in 250 mls @ 167 mls/hr IVPB Q24H [facility]; Protocol Last Admin: 11/21/18 17:28 Dose: 167 mls/hr Insulin Aspart (Novolog) 0 unit SC ACHS [facility]; Protocol Last Admin: 11/22/18 08:38 Dose: 2 units Insulin Detemir (Levemir) 28 unit SC Q12 [facility] Last Admin: 11/22/18 10:29 Dose: 28 units Lamivudine (Epivir) 300 mg PO DAILY [facility] Last Admin: 11/22/18 10:21 Dose: 300 mg Methylprednisolone (Solu-Medrol) 40 mg IVP DAILY [facility] Last Admin: 11/22/18 10:20 Dose: 40 mg Montelukast Sodium (Singulair) 10 mg PO HS [facility] Last Admin: 11/22/18 00:55 Dose: 10 mg Nystatin (Nystatin Oral Susp) 5 ml PO QID [facility] Last Admin: 11/22/18 10:21 Dose: 5 ml Ondansetron HCl (Zofran Inj) 8 mg IVP Q6H [facility] Polyethylene Glycol/Electrolytes (Golytely) 4,000 ml PO ONCE ONE Stop: 11/22/18 11:01 Promethazine HCl (Phenergan Syrup) 12.5 mg PO Q6 PRN PRN Reason: Cough and congestion Last Admin: 11/22/18 08:41 Dose: 12.5 mg Raltegravir (Isentress) 400 mg PO BID [facility]; Protocol Last Admin: 11/22/18 10:21 Dose: 400 mg - Labs Labs: 11/21/18 12:51 11/18/18 23:35 PT 14.2 SECONDS (9.7-12.2) H 11/21/18 12:51 INR 1.3 11/21/18 12:51 APTT 40 SECONDS (21-34) H 11/21/18 12:51 - Constitutional Appears: Non-toxic - Head Exam Head Exam: ATRAUMATIC - Eye Exam Eye Exam: Normal appearance Pupil Exam: NORMAL ACCOMODATION - ENT Exam ENT Exam: Mucous Membranes Moist - Neck Exam Neck Exam: Full ROM - Respiratory Exam Respiratory Exam: Decreased Breath Sounds, Wheezes - Cardiovascular Exam Cardiovascular Exam: REGULAR RHYTHM - GI/Abdominal Exam GI & Abdominal Exam: Normal Bowel Sounds - Extremities Exam Extremities Exam: Full ROM, Normal Inspection - Back Exam Back Exam: NORMAL INSPECTION - Neurological Exam Neurological Exam: Awake - Psychiatric Exam Psychiatric exam: Normal Affect - Skin Skin Exam: Pallor Assessment and Plan - Assessment and Plan (Free Text) Assessment: exacerbation aneamia gi blood loss
[2018-11-22] MEDS ORDERED: Peg-Electrolyte Oral Soln 4L (Golytely) PO ONE (11:00)
--- NOTE | 2018-11-22 11:45 | PN ---
DATE: 11/22/2018 LOCATION: 351, bed A. SUBJECTIVE: This 63-year-old male, seen and examined in rounds without significant clinical changes and the case discussed again at length with Dr. Jana Garcia, this morning with intermittent period of mild productive cough, seen by the pulmonary e business consultant. The entire chart is reviewed including but not limited to the most recent lab and radiology study results, current and the previous medication list, current and the previous medical events. Repeat blood counts showed hemoglobin dropped to 8.3, hematocrit 25.7 with low indices highly suggestive of hypochromic microcytic anemia with increased PT up to 14.2, PTT 40 with blood glucose level today of 195. PHYSICAL EXAMINATION: GENERAL: A 63-year-old male. VITAL SIGNS: Afebrile with pulse of 92, respiratory rate 20 of 22, blood pressure of 110/64. HEENT: Showed pale dry oral mucous membrane. Nonicteric sclerae. LUNGS: Few scattered crepitation. Decreased air entry at bases. HEART: Positive S1 and S2. ABDOMEN: Soft. Bowel sounds are present. No mass or organomegaly. No rebound tenderness or guarding. RECTAL: The patient refused. NEUROLOGIC: No reported new neurological deficits, sensory or motor. Official report of recently done upper endoscopy was negative for Helicobacter pylori infection. IMPRESSION: 1. Anemia with guaiac-positive stool, to rule out lower gastrointestinal blood loss. 2. Re-exacerbation of peptic ulcer disease with gastritis. 3. Multiple past medical history including but not limited to human immunodeficiency virus and chronic obstructive pulmonary disease. SUGGESTIONS: 1. Continue current management. 2. The patient for colonoscopy at a.m. after adequate preparation. Sarai Reynolds MD
--- NOTE | 2018-11-22 15:18 | CP.PCM.PN ---
Subjective - Date & Time of Evaluation Date of Evaluation: 11/22/18 Time of Evaluation: 13:00 - Subjective Subjective: Patient seen and examined at bedside. He refuses bronchoscopy following discussion of the benefits of the procedure and the risks of not having it. Afebrile. Physical Exam: General: Awake, alert and oriented; not in any distress Cardio: Regular rhythm and rate; +S1 +S2; no murmur Pulm: Decreased breath sounds Abd: Soft, non-distended Assessment and Plan:? COPD exacerbation - Continue nebulizer treatment and budesonide - IV steroids - Incentive spirometry - Continue antibiotics - Chest PT Cavitary lesion in lung - Patient refused bronchoscopy in the past and still refusing Objective - Vital Signs/Intake and Output Vital Signs (last 24 hours): Temp Pulse Resp BP Pulse Ox 99.2 F 90 20 106/67 98 11/22/18 07:00 11/22/18 07:00 11/22/18 07:00 11/22/18 07:00 11/22/18 07:00 Intake and Output: 11/22/18 11/22/18 06:59 18:59 Intake Total 700 500 Output Total 400 Balance 700 100 - Medications Medications: Current Medications Abacavir Sulfate (Ziagen) 300 mg PO BID [facility]; Protocol Last Admin: 11/22/18 10:21 Dose: 300 mg Albuterol/Ipratropium (Duoneb 3 Mg/0.5 Mg (3 Ml) Ud) 3 ml INH RQ4 [facility] Last Admin: 11/22/18 11:05 Dose: 3 ml Alprazolam (Xanax) 0.25 mg PO Q8 PRN PRN Reason: Anxiety Stop: 11/26/18 07:10 Last Admin: 11/22/18 00:55 Dose: 0.25 mg Amlodipine Besylate (Norvasc) 5 mg PO DAILY [facility] Last Admin: 11/22/18 10:20 Dose: 5 mg Aspirin (Ecotrin) 81 mg PO DAILY [facility] Last Admin: 11/22/18 10:20 Dose: 81 mg Bisacodyl (Dulcolax) 10 mg PO ONCE ONE Stop: 11/22/18 17:01 Budesonide (Pulmicort Respules) 0.25 mg IH RQ12 [facility] Last Admin: 11/22/18 08:00 Dose: Not Given Dextrose (Dextrose 50% Inj) 0 ml IV STAT PRN; Protocol PRN Reason: Hypoglycemia Protocol Dextrose (Glutose 15) 0 gm PO ONCE PRN; Protocol PRN Reason: Hypoglycemia Protocol Famotidine (Pepcid) 20 mg PO 1000 [facility] Last Admin: 11/22/18 10:20 Dose: 20 mg Ferrous Sulfate (Feosol) 325 mg PO DAILY [facility] Last Admin: 11/22/18 10:20 Dose: 325 mg Gabapentin (Neurontin) 300 mg PO TID [facility] Last Admin: 11/22/18 13:45 Dose: 300 mg Glucagon (Glucagen Diagnostic Kit) 0 mg IM STAT PRN; Protocol PRN Reason: Hypoglycemia Protocol Heparin Sodium (Porcine) (Heparin) 5,000 units SC Q12 [facility] Last Admin: 11/22/18 10:21 Dose: Not Given Ceftriaxone Sodium 1 gm/ (Sodium Chloride) 100 mls @ 100 mls/hr IVPB DAILY [facility]; Protocol Last Admin: 11/22/18 10:55 Dose: 100 mls/hr Azithromycin (Zithromax 500mg In Ns Addvantage) 500 mg in 250 mls @ 167 mls/hr IVPB Q24H [facility]; Protocol Last Admin: 11/21/18 17:28 Dose: 167 mls/hr Insulin Aspart (Novolog) 0 unit SC ACHS [facility]; Protocol Last Admin: 11/22/18 12:28 Dose: 8 units Insulin Detemir (Levemir) 28 unit SC Q12 [facility] Last Admin: 11/22/18 10:29 Dose: 28 units Lamivudine (Epivir) 300 mg PO DAILY [facility] Last Admin: 11/22/18 10:21 Dose: 300 mg Methylprednisolone (Solu-Medrol) 40 mg IVP DAILY [facility] Last Admin: 11/22/18 10:20 Dose: 40 mg Montelukast Sodium (Singulair) 10 mg PO HS [facility] Last Admin: 11/22/18 00:55 Dose: 10 mg Nystatin (Nystatin Oral Susp) 5 ml PO QID [facility] Last Admin: 11/22/18 13:45 Dose: 5 ml Ondansetron HCl (Zofran Inj) 8 mg IVP Q6H [facility] Last Admin: 11/22/18 10:56 Dose: Not Given Promethazine HCl (Phenergan Syrup) 12.5 mg PO Q6 PRN PRN Reason: Cough and congestion Last Admin: 11/22/18 08:41 Dose: 12.5 mg Raltegravir (Isentress) 400 mg PO BID [facility]; Protocol Last Admin: 11/22/18 10:21 Dose: 400 mg - Labs Labs: 11/21/18 12:51 11/18/18 23:35 PT 14.2 SECONDS (9.7-12.2) H 11/21/18 12:51 INR 1.3 11/21/18 12:51 APTT 40 SECONDS (21-34) H 11/21/18 12:51 Assessment and Plan (1) COPD exacerbation Status: Acute (2) Cavitary lesion of lung Status: Acute
[2018-11-22] MEDS: Azithromycin 500mg/250ML NS 500 MG/250 ML BAG IVPB SCH (16:34)
[2018-11-22] MEDS ORDERED: Bisacodyl 5mg EC Tab PO ONE (17:00)
[2018-11-22 17:29] LABS: INR 1.4; PROTHROMBIN TIME 14.9 SECONDS (9.7-12.2)
[2018-11-23] MEDS: Albuterol-Ipratrop 3 mg / 0.5 (3 ml) UD INH SCH ×6 (03:21→20:03)
[2018-11-23] MEDS: Budesonide 0.25 mg/2 ml Inhal Susp UD IH SCH ×2 (07:25→20:03)
[2018-11-23] MEDS: (Novolog) Insulin Aspart, Recombinant 100 u/ml 10 ml vial SC SCH ×4 (08:30→21:58)
[2018-11-23] MEDS: Promethazine 12.5 mg/10 ml Syrup PO PRN ×2 (08:46→17:31)
[2018-11-23] MEDS: MethylPREDNISolone 40 mg Vial IVP SCH (10:27)
[2018-11-23] MEDS: Nystatin 100,000 Units/ml Oral Susp 5 ml UD PO SCH ×5 (10:28→22:01)
[2018-11-23] MEDS: LIPASE/PROTEASE/AMYLASE 4,200 U ECC PO SCH ×3 (10:28→17:16)
[2018-11-23] MEDS: Insulin Detemir 100 units/ml Vial (Levemir) SC SCH (10:29)
--- NOTE | 2018-11-23 14:41 | PN ---
DATE: 11/23/2018 LOCATION: 351, bed A. SUBJECTIVE: This 63-year-old male was prepared and scheduled for colonoscopy today. I had been waiting for the patient in endoscopy room since 8:00 in the morning for over three and half hours, I could not perform the procedure due to the Anesthesia refusal to do the case after Pulmonary clearance. I spoke to Dr. Alfaro as well as the primary MD, Dr. Garcia, and despite saw the patient is not in the endoscopy room after three and half hours for which I had to cancel the case due to above. The patient to be rescheduled for tomorrow and the case to be discussed again with the primary MD. Unfortunately, despite all the trials I did to perform the case, I was unsuccessful too. After three and a half hours, I had to cancel the case and to be rescheduled for tomorrow, if it is cleared by whatever the Anesthetists staff wants to. Sarai Reynolds MD
[2018-11-23] MEDS ORDERED: Bisacodyl 5mg EC Tab PO ONE (17:00)
[2018-11-23] MEDS: Azithromycin 500mg/250ML NS 500 MG/250 ML BAG IVPB SCH (17:11)
[2018-11-23] MEDS ORDERED: Insulin Detemir 100 units/ml Vial (Levemir) SC ONE (22:00)
[2018-11-24] MEDS: Promethazine 12.5 mg/10 ml Syrup PO PRN ×3 (00:20→17:25)
[2018-11-24] MEDS: Albuterol-Ipratrop 3 mg / 0.5 (3 ml) UD INH SCH ×6 (01:10→19:15)
[2018-11-24] MEDS: Budesonide 0.25 mg/2 ml Inhal Susp UD IH SCH ×2 (07:15→19:15)
[2018-11-24] MEDS: (Novolog) Insulin Aspart, Recombinant 100 u/ml 10 ml vial SC SCH ×4 (07:53→22:00)
[2018-11-24] MEDS: Insulin Detemir 100 units/ml Vial (Levemir) SC SCH ×2 (09:13→21:33)
[2018-11-24] MEDS: LIPASE/PROTEASE/AMYLASE 4,200 U ECC PO SCH ×3 (09:14→17:13)
[2018-11-24] MEDS: Nystatin 100,000 Units/ml Oral Susp 5 ml UD PO SCH ×4 (09:14→21:32)
[2018-11-24] MEDS: MethylPREDNISolone 40 mg Vial IVP SCH (09:14)
[2018-11-24] MEDS ORDERED: Lidocaine Hydrochloride 5 ML INJ ONE (10:28)
[2018-11-24] MEDS ORDERED: Propofol 10 mg/ml Inj (20 ML) ONE (10:28)
--- NOTE | 2018-11-24 10:35 | CP.PCM.PN ---
Subjective - Date & Time of Evaluation Date of Evaluation: 11/24/18 Time of Evaluation: 10:33 - Subjective Subjective: was having blood stool sob less wheesing Objective - Vital Signs/Intake and Output Vital Signs (last 24 hours): Temp Pulse Resp BP Pulse Ox 98 F 100 H 20 104/67 7 L 11/24/18 08:00 11/24/18 08:00 11/24/18 08:00 11/24/18 08:00 11/24/18 08:00 Intake and Output: 11/24/18 11/24/18 06:59 18:59 Intake Total 1215 0 Balance 1215 0 - Medications Medications: Current Medications Abacavir Sulfate (Ziagen) 300 mg PO BID [facility]; Protocol Last Admin: 11/24/18 09:14 Dose: Not Given Albuterol/Ipratropium (Duoneb 3 Mg/0.5 Mg (3 Ml) Ud) 3 ml INH RQ4 [facility] Last Admin: 11/24/18 03:54 Dose: Not Given Alprazolam (Xanax) 0.25 mg PO Q8 PRN PRN Reason: Anxiety Stop: 11/26/18 07:10 Last Admin: 11/23/18 18:00 Dose: 0.25 mg Amlodipine Besylate (Norvasc) 5 mg PO DAILY [facility] Last Admin: 11/24/18 09:14 Dose: Not Given Aspirin (Ecotrin) 81 mg PO DAILY [facility] Last Admin: 11/23/18 10:28 Dose: Not Given Budesonide (Pulmicort Respules) 0.25 mg IH RQ12 [facility] Last Admin: 11/23/18 20:03 Dose: 0.25 mg Dextrose (Dextrose 50% Inj) 0 ml IV STAT PRN; Protocol PRN Reason: Hypoglycemia Protocol Dextrose (Glutose 15) 0 gm PO ONCE PRN; Protocol PRN Reason: Hypoglycemia Protocol Famotidine (Pepcid) 20 mg PO 1000 [facility] Last Admin: 11/24/18 09:14 Dose: Not Given Ferrous Sulfate (Feosol) 325 mg PO DAILY [facility] Last Admin: 11/24/18 09:13 Dose: Not Given Gabapentin (Neurontin) 300 mg PO TID [facility] Last Admin: 11/24/18 09:13 Dose: Not Given Glucagon (Glucagen Diagnostic Kit) 0 mg IM STAT PRN; Protocol PRN Reason: Hypoglycemia Protocol Ceftriaxone Sodium 1 gm/ (Sodium Chloride) 100 mls @ 100 mls/hr IVPB DAILY [facility]; Protocol Last Admin: 11/23/18 10:27 Dose: 100 mls/hr Azithromycin (Zithromax 500mg In Ns Addvantage) 500 mg in 250 mls @ 167 mls/hr IVPB Q24H [facility]; Protocol Last Admin: 11/23/18 17:11 Dose: 167 mls/hr Insulin Aspart (Novolog) 0 unit SC ACHS [facility]; Protocol Last Admin: 11/24/18 07:53 Dose: Not Given Insulin Detemir (Levemir) 28 unit SC Q12 [facility] Last Admin: 11/24/18 09:13 Dose: Not Given Lamivudine (Epivir) 300 mg PO DAILY [facility] Last Admin: 11/24/18 09:13 Dose: Not Given Methylprednisolone (Solu-Medrol) 40 mg IVP DAILY [facility] Last Admin: 11/24/18 09:14 Dose: Not Given Montelukast Sodium (Singulair) 10 mg PO HS [facility] Last Admin: 11/23/18 21:58 Dose: 10 mg Nystatin (Nystatin Oral Susp) 5 ml PO QID [facility] Last Admin: 11/24/18 09:14 Dose: Not Given Ondansetron HCl (Zofran Inj) 8 mg IVP Q6H [facility] Last Admin: 11/24/18 04:45 Dose: 8 mg Promethazine HCl (Phenergan Syrup) 12.5 mg PO Q6 PRN PRN Reason: Cough and congestion Last Admin: 11/24/18 06:05 Dose: 12.5 mg Raltegravir (Isentress) 400 mg PO BID [facility]; Protocol Last Admin: 11/24/18 09:13 Dose: Not Given - Labs Labs: 11/21/18 12:51 11/18/18 23:35 PT 14.9 SECONDS (9.7-12.2) H 11/22/18 17:11 INR 1.4 11/22/18 17:11 APTT 44 SECONDS (21-34) H 11/22/18 17:11 - Constitutional Appears: Non-toxic - Head Exam Head Exam: NORMAL INSPECTION - Eye Exam Eye Exam: Normal appearance - ENT Exam ENT Exam: Normal Exam - Neck Exam Neck Exam: Full ROM - Respiratory Exam Respiratory Exam: Decreased Breath Sounds, Rhonchi - Cardiovascular Exam Cardiovascular Exam: REGULAR RHYTHM - GI/Abdominal Exam GI & Abdominal Exam: Normal Bowel Sounds - Exam Exam: NORMAL INSPECTION - Extremities Exam Extremities Exam: Normal Inspection - Back Exam Back Exam: NORMAL INSPECTION - Neurological Exam Neurological Exam: Alert, Awake, Oriented x3 - Psychiatric Exam Psychiatric exam: Flat Affect - Skin Skin Exam: Pallor Assessment and Plan - Assessment and Plan (Free Text) Assessment: aneamia secondry to blood loss gi copd Plan: colonoscopy today
[2018-11-24 17:04] LABS: BASO % 0.1 % (0.0-2.0); EOS % 0.1 % (0.0-4.0); HEMOGLOBIN 8.4 g/dL (12.0-18.0); LYMPH # 1.2 K/uL (1.0-4.3); LYMPH % 9.4 % (20.0-40.0); MEAN CELL VOLUME 81.8 fL (80.0-94.0); MEAN CORPUSCULAR HGB CONC 30.5 g/dL (33.0-37.0); MEAN PLATELET VOLUME 7.6 fL (7.2-11.7); MONO # 0.9 K/uL (0.0-0.8); MONO % 7.1 % (0.0-10.0); NEUT # 10.8 K/uL (1.8-7.0); NEUT % 83.3 % (50.0-75.0); NRBC % 0.1 % (0.0-2.0); PLATELET COUNT 452 K/uL (130-400); RBC 3.36 Mil/uL (4.40-5.90); RED CELL DISTRIBUTION WIDTH 17.3 % (11.5-14.5)
[2018-11-24] MEDS: Azithromycin 500mg/250ML NS 500 MG/250 ML BAG IVPB SCH (17:11)
[2018-11-24 17:26] LABS: BLOOD UREA NITROGEN 10 mg/dL (9-20); CALCIUM 8.3 mg/dl (8.6-10.4); GFR NON-AFRICAN AMERICAN > 60
[2018-11-24 18:53] LABS: BANDS 1 % (0-2); LYMPHOCYTE 14 % (20-40); MONOCYTE 6 % (0-10); NEUTROPHIL 79 % (50-75); TOTAL CELLS COUNTED 100
[2018-11-24 18:54] LABS: HYPOCHROMIC SLIGHT; PLATELET ESTIMATE INCREASED (NORMAL)
[2018-11-25] MEDS: Albuterol-Ipratrop 3 mg / 0.5 (3 ml) UD INH SCH ×6 (01:01→20:09)
[2018-11-25] MEDS: Promethazine 12.5 mg/10 ml Syrup PO PRN ×2 (01:45→10:18)
[2018-11-25] MEDS: Budesonide 0.25 mg/2 ml Inhal Susp UD IH SCH ×2 (07:25→20:09)
[2018-11-25 07:31] LABS: BASO % 0.1 % (0.0-2.0); EOS % 0.1 % (0.0-4.0); HEMOGLOBIN 8.5 g/dL (12.0-18.0); LYMPH # 2.1 K/uL (1.0-4.3); LYMPH % 16.1 % (20.0-40.0); MEAN CELL VOLUME 81.6 fL (80.0-94.0); MEAN CORPUSCULAR HEMOGLOBIN 25.6 pg (27.0-31.0); MEAN CORPUSCULAR HGB CONC 31.3 g/dL (33.0-37.0); MEAN PLATELET VOLUME 7.8 fL (7.2-11.7); MONO # 1.1 K/uL (0.0-0.8); MONO % 8.6 % (0.0-10.0); NEUT # 9.9 K/uL (1.8-7.0); NEUT % 75.1 % (50.0-75.0); NRBC % 0.1 % (0.0-2.0); RBC 3.34 Mil/uL (4.40-5.90); RED CELL DISTRIBUTION WIDTH 17.6 % (11.5-14.5); WHITE BLOOD COUNT 13.1 K/uL (4.8-10.8)
--- NOTE | 2018-11-25 08:11 | PN ---
DATE: 11/24/2018 LOCATION: 351, bed A. SUBJECTIVE: This is a 63-year-old male, seen and examined in rounds. Without reported significant changes but change of bowel movement habit as reported by the staff. The entire chart is reviewed including but not limited to the most recent lab and radiology study results, current and the previous medication list, current and the previous medical events. The patient denied any chest pain, palpitation or reported chills or fever despite a temperature of 99.3 with increased heart rate to 98. It has to be mentioned that this case is discussed at a regular basis with Dr. Garcia, who also insisted that the patient have colonoscopy due to persistent anemia of unknown origin, please take a note. Most recent lab results showed leukocytosis of 13 with hemoglobin 8.4, hematocrit 27.5 with low indices highly suggestive of hypochromic microcytic anemia with today's blood glucose level of 175. PHYSICAL EXAMINATION: GENERAL: A 63-year-old male with blood pressure of 110/68, respiratory rate 20-22. Complaining of mild generalized abdominal pain with abdominal distention. HEENT: Showed pale dry oral mucous membrane. Nonicteric sclerae. LUNGS: Few scattered crepitation. Decreased air entry at bases. HEART: Positive S1 and S2. ABDOMEN: Soft with slight generalized tenderness. No mass or organomegaly. No rebound tenderness or guarding. EXTREMITIES: Without significant clubbing, cyanosis or edema. NEUROLOGICAL: No reported new neurological deficits, sensory or motor. IMPRESSION: 1. The patient has anemia with guaiac-positive stool that is a clear indication for upper and lower endoscopy for anybody who wants to review the chart. 2. Re-exacerbation of peptic ulcer disease with gastritis. 3. Recently done colonoscopy with internal hemorrhoids, without reported mass lesion; due to poor bowel preparation, retained fecal material seen in the colon. 4. Re-exacerbation of chronic obstructive pulmonary disease. 5. Electrolyte imbalance. 6. Poorly controlled diabetes mellitus. 7. 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 SUGGESTIONS: 1. Continue current management. 2. ID consultation due to the patient's known history of HIV. 3. Repeat H and H with blood transfusion as needed to keep hemoglobin around 10 g%. 4. Further recommendation to follow. Sarai Reynolds MD [facility] # [id number]
[2018-11-25] MEDS: (Novolog) Insulin Aspart, Recombinant 100 u/ml 10 ml vial SC SCH ×4 (08:30→22:14)
[2018-11-25 08:40] LABS: BLOOD UREA NITROGEN 8 mg/dL (9-20); CALCIUM 8.2 mg/dl (8.6-10.4); GFR NON-AFRICAN AMERICAN > 60
[2018-11-25] MEDS: Nystatin 100,000 Units/ml Oral Susp 5 ml UD PO SCH ×3 (10:16→18:04)
[2018-11-25] MEDS: Insulin Detemir 100 units/ml Vial (Levemir) SC SCH ×2 (10:17→21:10)
[2018-11-25] MEDS: MethylPREDNISolone 40 mg Vial IVP SCH (10:17)
[2018-11-25] MEDS: LIPASE/PROTEASE/AMYLASE 4,200 U ECC PO SCH ×3 (10:18→18:05)
--- NOTE | 2018-11-25 11:00 | CP.PCM.PN ---
Subjective - Date & Time of Evaluation Date of Evaluation: 11/25/18 Time of Evaluation: 10:58 - Subjective Subjective: pt coughing wheesing weeke Objective - Vital Signs/Intake and Output Vital Signs (last 24 hours): Temp Pulse Resp BP Pulse Ox 97.4 F L 100 H 20 108/70 98 11/25/18 08:27 11/25/18 08:27 11/25/18 08:27 11/25/18 08:27 11/25/18 08:27 Intake and Output: 11/25/18 11/25/18 06:59 18:59 Intake Total 300 Output Total 800 Balance -500 - Medications Medications: Current Medications Abacavir Sulfate (Ziagen) 300 mg PO BID [facility]; Protocol Last Admin: 11/25/18 10:16 Dose: 300 mg Albuterol/Ipratropium (Duoneb 3 Mg/0.5 Mg (3 Ml) Ud) 3 ml INH RQ4 [facility] Last Admin: 11/25/18 07:25 Dose: Not Given Alprazolam (Xanax) 0.25 mg PO Q8 PRN PRN Reason: Anxiety Stop: 11/26/18 07:10 Last Admin: 11/23/18 18:00 Dose: 0.25 mg Amlodipine Besylate (Norvasc) 5 mg PO DAILY [facility] Last Admin: 11/25/18 10:17 Dose: 5 mg Aspirin (Ecotrin) 81 mg PO DAILY [facility] Last Admin: 11/23/18 10:28 Dose: Not Given Budesonide (Pulmicort Respules) 0.25 mg IH RQ12 [facility] Last Admin: 11/25/18 07:25 Dose: Not Given Dextrose (Dextrose 50% Inj) 0 ml IV STAT PRN; Protocol PRN Reason: Hypoglycemia Protocol Dextrose (Glutose 15) 0 gm PO ONCE PRN; Protocol PRN Reason: Hypoglycemia Protocol Famotidine (Pepcid) 20 mg PO 1000 [facility] Last Admin: 11/25/18 10:17 Dose: 20 mg Ferrous Sulfate (Feosol) 325 mg PO DAILY [facility] Last Admin: 11/25/18 10:17 Dose: 325 mg Gabapentin (Neurontin) 300 mg PO TID [facility] Last Admin: 11/25/18 10:17 Dose: 300 mg Glucagon (Glucagen Diagnostic Kit) 0 mg IM STAT PRN; Protocol PRN Reason: Hypoglycemia Protocol Hydrocortisone (Anusol-Hc) 25 mg RC BID [facility] Azithromycin (Zithromax 500mg In Ns Addvantage) 500 mg in 250 mls @ 167 mls/hr IVPB Q24H [facility]; Protocol Last Admin: 11/24/18 17:11 Dose: 167 mls/hr Ceftriaxone Sodium 1 gm/ (Sodium Chloride) 100 mls @ 100 mls/hr IVPB DAILY [facility]; Protocol Insulin Aspart (Novolog) 0 unit SC ACHS [facility]; Protocol Last Admin: 11/25/18 08:30 Dose: 2 units Insulin Detemir (Levemir) 28 unit SC Q12 [facility] Last Admin: 11/25/18 10:17 Dose: 28 units Lamivudine (Epivir) 300 mg PO DAILY [facility] Last Admin: 11/25/18 10:16 Dose: 300 mg Methylprednisolone (Solu-Medrol) 40 mg IVP DAILY [facility] Last Admin: 11/25/18 10:17 Dose: 40 mg Montelukast Sodium (Singulair) 10 mg PO HS [facility] Last Admin: 11/24/18 21:32 Dose: 10 mg Multivitamins/Minerals (Therapeutic-M Tab) 1 tab PO 0800 [facility] Nystatin (Nystatin Oral Susp) 5 ml PO QID [facility] Last Admin: 11/25/18 10:16 Dose: 5 ml Ondansetron HCl (Zofran Inj) 8 mg IVP Q6H [facility] Last Admin: 11/25/18 10:18 Dose: Not Given Promethazine HCl (Phenergan Syrup) 12.5 mg PO Q6 PRN PRN Reason: Cough and congestion Last Admin: 11/25/18 10:18 Dose: 12.5 mg Raltegravir (Isentress) 400 mg PO BID [facility]; Protocol Last Admin: 11/25/18 10:16 Dose: 400 mg - Labs Labs: 11/25/18 07:20 11/25/18 07:20 PT 14.9 SECONDS (9.7-12.2) H 11/22/18 17:11 INR 1.4 11/22/18 17:11 APTT 44 SECONDS (21-34) H 11/22/18 17:11 - Constitutional Appears: Older Than Stated Age - Eye Exam Eye Exam: Normal appearance Pupil Exam: NORMAL ACCOMODATION - ENT Exam ENT Exam: Mucous Membranes Moist - Neck Exam Neck Exam: Full ROM - Respiratory Exam Respiratory Exam: Decreased Breath Sounds, Rales, Wheezes - Cardiovascular Exam Cardiovascular Exam: REGULAR RHYTHM - GI/Abdominal Exam GI & Abdominal Exam: Normal Bowel Sounds - Rectal Exam Additional comments: hemeroids - Extremities Exam Extremities Exam: Normal Inspection - Neurological Exam Neurological Exam: Alert, Awake, Oriented x3 - Psychiatric Exam Psychiatric exam: Normal Affect - Skin Skin Exam: Pallor Assessment and Plan - Assessment and Plan (Free Text) Assessment: aneamia s/p rectal bleedind hemeroids copd exacerbation mass lung pnumonia dm hiv Plan: cont as per orders pulmonary consultatiod dr oliveira
--- NOTE | 2018-11-25 17:00 | CP.PCM.PN ---
Subjective - Date & Time of Evaluation Date of Evaluation: 11/25/18 Time of Evaluation: 14:20 - Subjective Subjective: Patient seen and examined Still complaining of shortness of breath and cough Afebrile Objective - Vital Signs/Intake and Output Vital Signs (last 24 hours): Temp Pulse Resp BP Pulse Ox 98.4 F 95 H 20 100/62 92 L 11/25/18 16:00 11/25/18 16:00 11/25/18 16:00 11/25/18 16:00 11/25/18 16:00 Intake and Output: 11/25/18 11/25/18 06:59 18:59 Intake Total 300 400 Output Total 800 Balance -500 400 - Medications Medications: Current Medications Abacavir Sulfate (Ziagen) 300 mg PO BID [facility]; Protocol Last Admin: 11/25/18 10:16 Dose: 300 mg Albuterol/Ipratropium (Duoneb 3 Mg/0.5 Mg (3 Ml) Ud) 3 ml INH RQ4 [facility] Last Admin: 11/25/18 16:53 Dose: Not Given Alprazolam (Xanax) 0.25 mg PO Q8 PRN PRN Reason: Anxiety Stop: 11/26/18 07:10 Last Admin: 11/23/18 18:00 Dose: 0.25 mg Amlodipine Besylate (Norvasc) 5 mg PO DAILY [facility] Last Admin: 11/25/18 10:17 Dose: 5 mg Aspirin (Ecotrin) 81 mg PO DAILY [facility] Last Admin: 11/23/18 10:28 Dose: Not Given Budesonide (Pulmicort Respules) 0.25 mg IH RQ12 [facility] Last Admin: 11/25/18 07:25 Dose: Not Given Dextrose (Dextrose 50% Inj) 0 ml IV STAT PRN; Protocol PRN Reason: Hypoglycemia Protocol Dextrose (Glutose 15) 0 gm PO ONCE PRN; Protocol PRN Reason: Hypoglycemia Protocol Famotidine (Pepcid) 20 mg PO 1000 [facility] Last Admin: 11/25/18 10:17 Dose: 20 mg Ferrous Sulfate (Feosol) 325 mg PO DAILY [facility] Last Admin: 11/25/18 10:17 Dose: 325 mg Gabapentin (Neurontin) 300 mg PO TID [facility] Last Admin: 11/25/18 14:11 Dose: 300 mg Glucagon (Glucagen Diagnostic Kit) 0 mg IM STAT PRN; Protocol PRN Reason: Hypoglycemia Protocol Hydrocortisone (Anusol-Hc) 25 mg RC BID [facility] Last Admin: 11/25/18 12:40 Dose: 25 mg Azithromycin (Zithromax 500mg In Ns Addvantage) 500 mg in 250 mls @ 167 mls/hr IVPB Q24H [facility]; Protocol Last Admin: 11/24/18 17:11 Dose: 167 mls/hr Ceftriaxone Sodium 1 gm/ (Sodium Chloride) 100 mls @ 100 mls/hr IVPB DAILY [facility]; Protocol Last Admin: 11/25/18 12:13 Dose: 100 mls/hr Insulin Aspart (Novolog) 0 unit SC ACHS [facility]; Protocol Last Admin: 11/25/18 11:59 Dose: 6 units Insulin Detemir (Levemir) 28 unit SC Q12 [facility] Last Admin: 11/25/18 10:17 Dose: 28 units Lamivudine (Epivir) 300 mg PO DAILY [facility] Last Admin: 11/25/18 10:16 Dose: 300 mg Methylprednisolone (Solu-Medrol) 40 mg IVP DAILY [facility] Last Admin: 11/25/18 10:17 Dose: 40 mg Montelukast Sodium (Singulair) 10 mg PO HS [facility] Last Admin: 11/24/18 21:32 Dose: 10 mg Multivitamins/Minerals (Therapeutic-M Tab) 1 tab PO 0800 [facility] Nystatin (Nystatin Oral Susp) 5 ml PO QID [facility] Last Admin: 11/25/18 14:11 Dose: 5 ml Ondansetron HCl (Zofran Inj) 8 mg IVP Q6H [facility] Last Admin: 11/25/18 10:18 Dose: Not Given Promethazine HCl (Phenergan Syrup) 12.5 mg PO Q6 PRN PRN Reason: Cough and congestion Last Admin: 11/25/18 10:18 Dose: 12.5 mg Raltegravir (Isentress) 400 mg PO BID [facility]; Protocol Last Admin: 11/25/18 10:16 Dose: 400 mg - Labs Labs: 11/25/18 07:20 11/25/18 07:20 PT 14.9 SECONDS (9.7-12.2) H 11/22/18 17:11 INR 1.4 11/22/18 17:11 APTT 44 SECONDS (21-34) H 11/22/18 17:11 - Head Exam Head Exam: ATRAUMATIC, NORMOCEPHALIC - ENT Exam ENT Exam: Mucous Membranes Moist - Neck Exam Neck Exam: Normal Inspection - Respiratory Exam Respiratory Exam: Decreased Breath Sounds - Cardiovascular Exam Cardiovascular Exam: REGULAR RHYTHM - GI/Abdominal Exam GI & Abdominal Exam: Soft Assessment and Plan (1) COPD exacerbation Assessment & Plan: Continue nebulizer treatment Tapering IV steroids Continue antitussive Refusing biopsy Status: Acute (2) Cavitary lesion of lung Status: Acute
[2018-11-25] MEDS: Azithromycin 500mg/250ML NS 500 MG/250 ML BAG IVPB SCH (18:21)
[2018-11-26] MEDS: Promethazine 12.5 mg/10 ml Syrup PO PRN ×4 (01:06→23:37)
[2018-11-26] MEDS: Albuterol-Ipratrop 3 mg / 0.5 (3 ml) UD INH SCH ×5 (01:13→20:45)
[2018-11-26] MEDS: Multivitamin With Minerals Tab PO SCH (08:27)
[2018-11-26] MEDS: (Novolog) Insulin Aspart, Recombinant 100 u/ml 10 ml vial SC SCH ×4 (08:27→22:11)
[2018-11-26] MEDS: Budesonide 0.25 mg/2 ml Inhal Susp UD IH SCH ×2 (08:30→20:44)
[2018-11-26] MEDS: Insulin Detemir 100 units/ml Vial (Levemir) SC SCH ×3 (10:07→22:10)
[2018-11-26] MEDS: LIPASE/PROTEASE/AMYLASE 4,200 U ECC PO SCH ×3 (10:09→17:55)
[2018-11-26] MEDS: MethylPREDNISolone 40 mg Vial IVP SCH (10:10)
--- NOTE | 2018-11-26 10:25 | PN ---
DATE: 11/26/2018 LOCATION: 370, bed A. SUBJECTIVE: This is a 63-year-old male, seen early in rounds with the staff in the floor without reported significant clinical changes with much less complaint of shortness of breath or cough. No reported active GI bleeding this early a.m. The patient is post colonoscopy. Please see official colonoscopy report and indication. The entire chart is reviewed including but not limited to the most recent lab and radiology study results, current and the previous medication list. Today's glucose level is still elevated to 347 and the patient still has low calcium, increased CO2 content indicative of respiratory alkalosis with leukocytosis and low hemoglobin and hematocrit. PHYSICAL EXAMINATION: GENERAL: A 63-year-old male. VITAL SIGNS: Afebrile with heart rate of 98, respiratory rate 20 to 22, blood pressure 106/66. HEENT: Showed pale dry mucous membrane. Nonicteric sclerae. LUNGS: Few scattered crepitation. Decreased air entry at bases. The patient has [id number] wheezing on and off bilaterally. HEART: Positive S1 and S2 with increased rate. ABDOMEN: Soft with slight generalized tenderness. No mass or organomegaly. No rebound tenderness or guarding. NEUROLOGIC: No reported new neurological deficits, sensory or motor. IMPRESSION: 1. Anemia with re-exacerbation of peptic ulcer disease with possible internal hemorrhoids blood loss due to the patient's recurrent rectal bleeding recently. 2. Re-exacerbation of chronic obstructive pulmonary disease. 3. Reported lung cavitary lesion. 4. The patient refusing bronchoscopy as per record. 5. Anemia, most likely secondary to above. 6. Electrolyte imbalance, gradually improving. 7. Very poorly controlled diabetes mellitus. 8. 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 SUGGESTIONS: 1. Continue current management. 2. Repeat stool for occult blood. 3. Rest as per the Pulmonary data quality consultant. 4. Further recommendation to follow. Sarai Reynolds MD
--- NOTE | 2018-11-26 12:27 | CP.PCM.PN ---
Subjective - Date & Time of Evaluation Date of Evaluation: 11/26/18 Time of Evaluation: 12:25 - Subjective Subjective: pt seen and examined doesnot feel good coughing sob wheesing wbc up hgb down has cavitary leasion lung agreed for needle bx Objective - Vital Signs/Intake and Output Vital Signs (last 24 hours): Temp Pulse Resp BP Pulse Ox 98.5 F 102 H 20 100/63 98 11/26/18 11:39 11/26/18 07:45 11/26/18 07:45 11/26/18 07:45 11/26/18 07:45 Intake and Output: 11/26/18 11/26/18 06:59 18:59 Intake Total 800 Balance 800 - Medications Medications: Current Medications Abacavir Sulfate (Ziagen) 300 mg PO BID [facility]; Protocol Last Admin: 11/26/18 10:10 Dose: 300 mg Acetaminophen (Tylenol 325mg Tab) 650 mg PO Q6 PRN PRN Reason: headache Last Admin: 11/26/18 11:39 Dose: 650 mg Albuterol/Ipratropium (Duoneb 3 Mg/0.5 Mg (3 Ml) Ud) 3 ml INH RQ4 [facility] Last Admin: 11/26/18 08:30 Dose: 3 ml Alprazolam (Xanax) 0.25 mg PO Q8H PRN PRN Reason: Anxiety Stop: 12/03/18 10:57 Last Admin: 11/26/18 11:06 Dose: 0.25 mg Amlodipine Besylate (Norvasc) 5 mg PO DAILY [facility] Last Admin: 11/26/18 10:09 Dose: 5 mg Aspirin (Ecotrin) 81 mg PO DAILY [facility] Last Admin: 11/23/18 10:28 Dose: Not Given Budesonide (Pulmicort Respules) 0.25 mg IH RQ12 [facility] Last Admin: 11/26/18 08:30 Dose: 0.25 mg Dextrose (Dextrose 50% Inj) 0 ml IV STAT PRN; Protocol PRN Reason: Hypoglycemia Protocol Dextrose (Glutose 15) 0 gm PO ONCE PRN; Protocol PRN Reason: Hypoglycemia Protocol Famotidine (Pepcid) 20 mg PO 1000 [facility] Last Admin: 11/26/18 10:09 Dose: 20 mg Ferrous Sulfate (Feosol) 325 mg PO DAILY [facility] Last Admin: 03/24/19 10:12 Dose: 325 mg Gabapentin (Neurontin) 300 mg PO TID [facility] Last Admin: 11/26/18 10:09 Dose: 300 mg Glucagon (Glucagen Diagnostic Kit) 0 mg IM STAT PRN; Protocol PRN Reason: Hypoglycemia Protocol Hydrocortisone (Anusol-Hc) 25 mg RC BID [facility] Last Admin: 11/26/18 10:36 Dose: Not Given Azithromycin (Zithromax 500mg In Ns Addvantage) 500 mg in 250 mls @ 167 mls/hr IVPB Q24H [facility]; Protocol Last Admin: 11/25/18 18:21 Dose: 167 mls/hr Ceftriaxone Sodium 1 gm/ (Sodium Chloride) 100 mls @ 100 mls/hr IVPB DAILY [facility]; Protocol Last Admin: 11/26/18 10:29 Dose: 100 mls/hr Insulin Aspart (Novolog) 0 unit SC ACHS [facility]; Protocol Last Admin: 11/26/18 08:27 Dose: 6 units Insulin Detemir (Levemir) 32 unit SC BID [facility] Lamivudine (Epivir) 300 mg PO DAILY [facility] Last Admin: 11/26/18 10:12 Dose: 300 mg Methylprednisolone (Solu-Medrol) 40 mg IVP DAILY [facility] Last Admin: 11/26/18 10:10 Dose: 40 mg Montelukast Sodium (Singulair) 10 mg PO HS [facility] Last Admin: 11/25/18 21:11 Dose: 10 mg Multivitamins/Minerals (Therapeutic-M Tab) 1 tab PO 0800 [facility] Last Admin: 11/26/18 08:27 Dose: 1 tab Ondansetron HCl (Zofran Inj) 8 mg IVP Q6H [facility] Last Admin: 11/26/18 10:39 Dose: Not Given Promethazine HCl (Phenergan Syrup) 12.5 mg PO Q6 PRN PRN Reason: Cough and congestion Last Admin: 11/26/18 06:50 Dose: 12.5 mg Raltegravir (Isentress) 400 mg PO BID [facility]; Protocol Last Admin: 11/26/18 10:07 Dose: 400 mg - Labs Labs: 11/25/18 07:20 11/25/18 07:20 PT 14.9 SECONDS (9.7-12.2) H 11/22/18 17:11 INR 1.4 11/22/18 17:11 APTT 44 SECONDS (21-34) H 11/22/18 17:11 - Constitutional Appears: In Acute Distress - Head Exam Head Exam: ATRAUMATIC - Eye Exam Eye Exam: Normal appearance - ENT Exam ENT Exam: Mucous Membranes Moist - Neck Exam Neck Exam: Full ROM - Respiratory Exam Respiratory Exam: Decreased Breath Sounds, Prolonged Expiratory Phase, Rales, Wheezes - Cardiovascular Exam Cardiovascular Exam: Tachycardia - GI/Abdominal Exam GI & Abdominal Exam: Soft - Exam Exam: NORMAL INSPECTION - Extremities Exam Extremities Exam: Full ROM - Back Exam Back Exam: NORMAL INSPECTION - Neurological Exam Neurological Exam: Awake, Oriented x3 - Psychiatric Exam Psychiatric exam: Anxious, Normal Affect - Skin Skin Exam: Pallor Assessment and Plan - Assessment and Plan (Free Text) Assessment: exacerbation copd leacocytosis cavitary leasion flaco hiv infectio Plan: i d consult [facility] radiology for need bx and cs
--- NOTE | 2018-11-26 13:16 | CP.PCM.PN ---
Subjective - Date & Time of Evaluation Date of Evaluation: 11/26/18 Time of Evaluation: 13:16 - Subjective Subjective: Pulmonary follow up, Covering Dr Alfaro The Patient was seen and examined at the bedside, Medical records reviewed, and management issues were discussed and formulated with the house staff. Events reviewed Patient comfortable, in no apperent distress Objective - Vital Signs/Intake and Output Vital Signs (last 24 hours): Temp Pulse Resp BP Pulse Ox 98.5 F 102 H 20 100/63 98 11/26/18 11:39 11/26/18 07:45 11/26/18 07:45 11/26/18 07:45 11/26/18 07:45 Intake and Output: 11/26/18 11/26/18 06:59 18:59 Intake Total 800 Balance 800 - Medications Medications: Current Medications Abacavir Sulfate (Ziagen) 300 mg PO BID [facility]; Protocol Last Admin: 11/26/18 10:10 Dose: 300 mg Acetaminophen (Tylenol 325mg Tab) 650 mg PO Q6 PRN PRN Reason: headache Last Admin: 11/26/18 11:39 Dose: 650 mg Albuterol/Ipratropium (Duoneb 3 Mg/0.5 Mg (3 Ml) Ud) 3 ml INH RQ4 [facility] Last Admin: 11/26/18 08:30 Dose: 3 ml Alprazolam (Xanax) 0.25 mg PO Q8H PRN PRN Reason: Anxiety Stop: 12/03/18 10:57 Last Admin: 11/26/18 11:06 Dose: 0.25 mg Amlodipine Besylate (Norvasc) 5 mg PO DAILY [facility] Last Admin: 11/26/18 10:09 Dose: 5 mg Aspirin (Ecotrin) 81 mg PO DAILY [facility] Last Admin: 11/23/18 10:28 Dose: Not Given Budesonide (Pulmicort Respules) 0.25 mg IH RQ12 [facility] Last Admin: 11/26/18 08:30 Dose: 0.25 mg Dextrose (Dextrose 50% Inj) 0 ml IV STAT PRN; Protocol PRN Reason: Hypoglycemia Protocol Dextrose (Glutose 15) 0 gm PO ONCE PRN; Protocol PRN Reason: Hypoglycemia Protocol Famotidine (Pepcid) 20 mg PO 1000 [facility] Last Admin: 11/26/18 10:09 Dose: 20 mg Ferrous Sulfate (Feosol) 325 mg PO DAILY [facility] Last Admin: 11/26/18 10:12 Dose: 325 mg Gabapentin (Neurontin) 300 mg PO TID [facility] Last Admin: 11/26/18 10:09 Dose: 300 mg Glucagon (Glucagen Diagnostic Kit) 0 mg IM STAT PRN; Protocol PRN Reason: Hypoglycemia Protocol Hydrocortisone (Anusol-Hc) 25 mg RC BID [facility] Last Admin: 11/26/18 10:36 Dose: Not Given Azithromycin (Zithromax 500mg In Ns Addvantage) 500 mg in 250 mls @ 167 mls/hr IVPB Q24H [facility]; Protocol Last Admin: 11/25/18 18:21 Dose: 167 mls/hr Ceftriaxone Sodium 1 gm/ (Sodium Chloride) 100 mls @ 100 mls/hr IVPB DAILY [facility]; Protocol Last Admin: 11/26/18 10:29 Dose: 100 mls/hr Insulin Aspart (Novolog) 0 unit SC ACHS [facility]; Protocol Last Admin: 11/26/18 12:45 Dose: 10 units Insulin Detemir (Levemir) 32 unit SC Q12 [facility] Lamivudine (Epivir) 300 mg PO DAILY [facility] Last Admin: 11/26/18 10:12 Dose: 300 mg Methylprednisolone (Solu-Medrol) 40 mg IVP DAILY [facility] Last Admin: 11/26/18 10:10 Dose: 40 mg Montelukast Sodium (Singulair) 10 mg PO HS [facility] Last Admin: 11/25/18 21:11 Dose: 10 mg Multivitamins/Minerals (Therapeutic-M Tab) 1 tab PO 0800 [facility] Last Admin: 11/26/18 08:27 Dose: 1 tab Ondansetron HCl (Zofran Inj) 8 mg IVP Q6H [facility] Last Admin: 11/26/18 10:39 Dose: Not Given Promethazine HCl (Phenergan Syrup) 12.5 mg PO Q6 PRN PRN Reason: Cough and congestion Last Admin: 11/26/18 06:50 Dose: 12.5 mg Raltegravir (Isentress) 400 mg PO BID [facility]; Protocol Last Admin: 11/26/18 10:07 Dose: 400 mg - Labs Labs: 11/25/18 07:20 11/25/18 07:20 PT 14.9 SECONDS (9.7-12.2) H 03/20/19 17:11 INR 1.4 11/22/18 17:11 APTT 44 SECONDS (21-34) H 11/22/18 17:11
--- NOTE | 2018-11-26 15:27 | CP.PCM.CON ---
History of Present Illness - History of Present Illness History of Present Illness: 63 year old male is admitted to with increasing shortness of breath with productive cough that started last week. He describes his sputum to be clear and sometimes yellowish in color. He has known lung mass but has refused bronch oscopy/ Bx on multiple occasions His antiviral rx was reviewed and renewed Past medical history: HIV on HARRT (CD4: 213, Viral load undetected on 08/22/2018), COPD on 2L home oxygen, HTN, DM, untreated hepatitis C, cataracts, and chronic pancreatitis. Past surgical history: Right Cataract Surgery Family history: denies Social history: 1PPD for 51 years. Quit about 10 years ago. Used to drink EtOH but quit 40 years ago; used to use drugs but quit 14 years ago. Allergies: denies Review of Systems - Constitutional Constitutional: As Per HPI, Anorexia. absent: Fever - EENT Eyes: absent: As Per HPI, Blind Spots, Blurred Vision, Change in Vision, Decreased Night Vision, Diplopia, Discharge, Dry Eye, Exophthalmos, Floaters, Irritation, Itchy Eyes, Loss of Peripheral Vision, Pain, Photophobia, Requires Corrective Lenses, Sees Flashes, Spots in Vision, Tunnel Vision, Other Visual Disturbances, Loss of Vision, Other Ears: absent: As Per HPI, Decreased Hearing, Ear Discharge, Ear Pain, Tinnitus, Abnormal Hearing, Disequilibrium, Dizziness, Other Nose/Mouth/Throat: absent: As Per HPI, Epistaxis, Nasal Congestion, Nasal Discharge, Nasal Obstruction, Nasal Trauma, Nose Pain, Post Nasal Drip, Sinus Pain, Sinus Pressure, Bleeding Gums, Change in Voice, Dental Pain, Dry Mouth, Dysphagia, Halitosis, Hoarsness, Lip Swelling, Mouth Lesions, Mouth Pain, Odynophagia, Sore Throat, Throat Swelling, Tongue Swelling, Facial Pain, Neck Pain, Neck Mass, Other - Cardiovascular Cardiovascular: As Per HPI - Respiratory Respiratory: As Per HPI, Cough, Dyspnea. absent: Hemoptysis - Gastrointestinal Gastrointestinal: absent: As Per HPI, Abdominal Pain, Belching, Bloating, Change in Bowel Habits, Change in Stool Character, Coffee Ground Emesis, Constipation, Cramping, Diarrhea, Dyspepsia, Dysphagia, Early Satiety, Excessive Flatus, Fecal Incontinence, Heartburn, Hematemesis, Hematochezia, Loose Stools, Melena, Nausea, Odynophagia, Temesmus, Vomiting, Other - Genitourinary Genitourinary: absent: As Per HPI, Change in Urinary Stream, Difficulty Urinating, Dysuria, Flank Pain, Hematuria, Pyuria, Nocturia, Urinary Incontinence, Urinary Frequency, Urinary Hesitance, Urinary Urgency, Voiding Freq/Small Amts, Freq UTI, Hx Renal/Bladder Calculi, Hx /Renal Surgery, Bladder Distension, Other - Musculoskeletal Musculoskeletal: absent: As Per HPI, Abnormal Gait, Arthralgias, Atrophy, Back Pain, Deformity, Joint Swelling, Limited Range of Motion, Loss of Height, Muscle Cramps, Muscle Weakness, Myalgias, Neck Pain, Numbness, Radiating Pain into Limb, Stiffness, Tingling, Other - Integumentary Integumentary: absent: As Per HPI, Acne, Alopecia, Bleeding Lesions, Change in Hair, Change in Nails, Change in Pigmentation, Changing Lesions, Dry Skin, Erythema, Furuncle, Hirsutism, Lesions, New Lesions, Non-Healing Lesions, Photosensitivity, Pruritus, Rash, Skin Pain, Skin Ulcer, Sores, Striae, Swelling, Unusual Bruising, Wounds, Jaundice, Other - Neurological Neurological: absent: As Per HPI, Abnormal Gait, Abnormal Hearing, Abnormal Movements, Abnormal Speech, Behavioral Changes, Burning Sensations, Confusion, Convulsions, Disequilibrium, Dizziness, Numbness, Focal Weakness, Frequent Falls, Headaches, Lack of Coordination, Loss of Vision, Memory Loss, Pare sthesias, Radicular Pain, Restless Legs, Sensory Deficit, Syncope, Tingling, Tremor, Vertigo, Weakness, Other Visual Disturbances, Other - Psychiatric Psychiatric: absent: As Per HPI, Abnormal Sleep Pattern, Anhedonia, Anxiety, Auditory Hallucinations, Behavioral Changes, Change in Appetite, Change in Libido, Confusion, Depression, Difficulty Concentrating, Hallucinations, Homicidal Ideation, Hopelessness, Irritability, Memory Loss, Mood Swings, Panic Attacks, Paranoia, Suicidal Ideation, Visual Hallucinations, Tactile Hallucinations, Other - Endocrine Endocrine: absent: As Per HPI, Change in Body Appearance, Change in Libido, Cold Intolorance, Deepening of Voice, Excessive Sweating, Fatigue, Flushing, Heat Intolorance, Increase in Ring/Shoe/Hat Size, Palpitations, Polydipsia, Polyphagia, Polyuria, Other - Hematologic/Lymphatic Hematologic: absent: As Per HPI, Easy Bleeding, Easy Bruising, Lymphadenopathy, Other Past Patient History - Infectious Disease Hx of Infectious Diseases: None - Tetanus Immunizations Tetanus Immunization: Unknown - Past Medical History & Family History Past Medical History?: Yes - Past Social History Smoking Status: Former Smoker - CARDIAC Hx Congestive Heart Failure: Yes Hx Hypercholesterolemia: No Hx Hypertension: Yes - PULMONARY Hx Chronic Obstructive Pulmonary Disease (COPD): Yes - NEUROLOGICAL Hx Seizures: No - HEENT Hx HEENT Problems: Yes Hx Cataracts: Yes (right eye sx) - RENAL Hx Chronic Kidney Disease: No - ENDOCRINE/METABOLIC Hx Endocrine Disorders: Yes Hx Diabetes Mellitus Type 2: Yes - HEMATOLOGICAL/ONCOLOGICAL Hx Anemia: Yes (blood transfusion) Hx Human Immunodeficiency Virus (HIV): Yes - INTEGUMENTARY Hx Dermatological Problems: No - MUSCULOSKELETAL/RHEUMATOLOGICAL Hx Arthritis: Yes (KNEES) - GASTROINTESTINAL Hx Pancreatitis: Yes - GENITOURINARY/GYNECOLOGICAL Hx Sexually Transmitted Disorders: No - PSYCHIATRIC Hx Anxiety: Yes Hx Substance Use: No - SURGICAL HISTORY Hx Surgeries: Yes Hx Eye Surgery: Yes Hx Mastectomy: No - ANESTHESIA Hx Anesthesia: Yes Hx Anesthesia Reactions: No Hx Malignant Hyperthermia: No Has any member of the family had a problem w/ anesthesia?: No Meds Allergies/Adverse Reactions: Allergies Allergy/AdvReac Type Severity Reaction Status Date / Time No Known Allergies Allergy Verified 11/18/18 22:02 - Medications Medications: Current Medications Abacavir Sulfate (Ziagen) 300 mg PO BID [facility]; Protocol Last Admin: 11/26/18 10:10 Dose: 300 mg Acetaminophen (Tylenol 325mg Tab) 650 mg PO Q6 PRN PRN Reason: headache Last Admin: 11/26/18 11:39 Dose: 650 mg Albuterol/Ipratropium (Duoneb 3 Mg/0.5 Mg (3 Ml) Ud) 3 ml INH RQ4 [facility] Last Admin: 11/26/18 11:20 Dose: Not Given Alprazolam (Xanax) 0.25 mg PO Q8H PRN PRN Reason: Anxiety Stop: 12/03/18 10:57 Last Admin: 11/26/18 11:06 Dose: 0.25 mg Amlodipine Besylate (Norvasc) 5 mg PO DAILY [facility] Last Admin: 11/26/18 10:09 Dose: 5 mg Aspirin (Ecotrin) 81 mg PO DAILY [facility] Last Admin: 11/23/18 10:28 Dose: Not Given Budesonide (Pulmicort Respules) 0.25 mg IH RQ12 [facility] Last Admin: 11/26/18 08:30 Dose: 0.25 mg Dextrose (Dextrose 50% Inj) 0 ml IV STAT PRN; Protocol PRN Reason: Hypoglycemia Protocol Dextrose (Glutose 15) 0 gm PO ONCE PRN; Protocol PRN Reason: Hypoglycemia Protocol Famotidine (Pepcid) 20 mg PO 1000 [facility] Last Admin: 11/26/18 10:09 Dose: 20 mg Ferrous Sulfate (Feosol) 325 mg PO DAILY [facility] Last Admin: 11/26/18 10:12 Dose: 325 mg Gabapentin (Neurontin) 300 mg PO TID [facility] Last Admin: 11/26/18 15:00 Dose: Not Given Glucagon (Glucagen Diagnostic Kit) 0 mg IM STAT PRN; Protocol PRN Reason: Hypoglycemia Protocol Hydrocortisone (Anusol-Hc) 25 mg RC BID [facility] Last Admin: 11/26/18 10:36 Dose: Not Given Azithromycin (Zithromax 500mg In Ns Addvantage) 500 mg in 250 mls @ 167 mls/hr IVPB Q24H [facility]; Protocol Last Admin: 11/25/18 18:21 Dose: 167 mls/hr Ceftriaxone Sodium 1 gm/ (Sodium Chloride) 100 mls @ 100 mls/hr IVPB DAILY [facility]; Protocol Last Admin: 11/26/18 10:29 Dose: 100 mls/hr Insulin Aspart (Novolog) 0 unit SC ACHS [facility]; Protocol Last Admin: 11/26/18 12:45 Dose: 10 units Insulin Detemir (Levemir) 32 unit SC Q12 [facility] Lamivudine (Epivir) 300 mg PO DAILY [facility] Last Admin: 11/26/18 10:12 Dose: 300 mg Methylprednisolone (Solu-Medrol) 40 mg IVP DAILY [facility] Last Admin: 11/26/18 10:10 Dose: 40 mg Montelukast Sodium (Singulair) 10 mg PO HS [facility] Last Admin: 11/25/18 21:11 Dose: 10 mg Multivitamins/Minerals (Therapeutic-M Tab) 1 tab PO 0800 [facility] Last Admin: 11/26/18 08:27 Dose: 1 tab Ondansetron HCl (Zofran Inj) 8 mg IVP Q6H [facility] Last Admin: 11/26/18 10:39 Dose: Not Given Promethazine HCl (Phenergan Syrup) 12.5 mg PO Q6 PRN PRN Reason: Cough and congestion Last Admin: 11/26/18 06:50 Dose: 12.5 mg Raltegravir (Isentress) 400 mg PO BID [facility]; Protocol Last Admin: 11/26/18 10:07 Dose: 400 mg Physical Exam - Constitutional Appears: Non-toxic, No Acute Distress, Cachectic, Chronically Ill - Head Exam Head Exam: ATRAUMATIC, NORMAL INSPECTION, NORMOCEPHALIC - Eye Exam Eye Exam: absent: Scleral icterus Pupil Exam: NORMAL ACCOMODATION - ENT Exam ENT Exam: Mucous Membranes Dry, Normal External Ear Exam, Normal Oropharynx - Neck Exam Neck exam: Negative for: Lymphadenopathy - Respiratory Exam Respiratory Exam: Decreased Breath Sounds, Prolonged Expiratory Phase, Rhonchi - Cardiovascular Exam Cardiovascular Exam: Tachycardia, Irregular Rhythm, +S1, +S2 - GI/Abdominal Exam GI & Abdominal Exam: Diminished Bowel Sounds, Soft. absent: Tenderness - Rectal Exam Rectal Exam: Deferred - Exam Exam: NORMAL INSPECTION - Extremities Exam Extremities exam: Positive for: pedal pulses present. Negative for: calf tenderness, pedal edema, tenderness - Back Exam Back exam: absent: CVA tenderness (L), CVA tenderness (R) - Neurological Exam Neurological exam: Alert, CN II-XII Intact, Oriented x3, Reflexes Normal - Psychiatric Exam Psychiatric exam: Depressed - Skin Skin Exam: Dry, Intact Results - Vital Signs Recent Vital Signs: Last Vital Signs Temp 98.5 F 11/26/18 11:39 Pulse 102 H 11/26/18 07:45 Resp 20 11/26/18 07:45 BP 100/63 11/26/18 07:45 Pulse Ox 98 11/26/18 07:45 - Labs Result Diagrams: 11/25/18 07:20 11/25/18 07:20 Labs: Laboratory Results - last 24 hr 11/25/18 11/25/18 11/26/18 16:37 21:43 07:33 POC Glucose (mg/dL) 269 H 499 H* 347 H 11/26/18 11:25 POC Glucose (mg/dL) 423 H* Assessment & Plan (1) COPD exacerbation Status: Acute Priority: High (2) Chronic obstructive lung disease Status: Acute (3) COPD with acute exacerbation Status: Acute Priority: High (4) Lung mass Status: Acute - Assessment and Plan (Free Text) Assessment: await cultures, serologies, T cells and viral load IV and PO antibiotics reordered will need FOB will folllow with you
[2018-11-26] MEDS: Azithromycin 500mg/250ML NS 500 MG/250 ML BAG IVPB SCH (18:15)
[2018-11-27] MEDS: Promethazine 12.5 mg/10 ml Syrup PO PRN (05:22)
[2018-11-27] MEDS: Albuterol-Ipratrop 3 mg / 0.5 (3 ml) UD INH SCH ×4 (07:31→19:41)
[2018-11-27] MEDS: Budesonide 0.25 mg/2 ml Inhal Susp UD IH SCH ×2 (07:32→19:42)
[2018-11-27] MEDS: (Novolog) Insulin Aspart, Recombinant 100 u/ml 10 ml vial SC SCH ×4 (08:43→21:28)
[2018-11-27] MEDS: Multivitamin With Minerals Tab PO SCH (08:44)
[2018-11-27] MEDS: LIPASE/PROTEASE/AMYLASE 4,200 U ECC PO SCH ×3 (08:44→17:07)
--- NOTE | 2018-11-27 10:16 | CP.PCM.PN ---
Subjective - Date & Time of Evaluation Date of Evaluation: 11/27/18 Time of Evaluation: 10:13 - Subjective Subjective: feels weeke coughing all night wheesing for needle bx tomorro Objective - Vital Signs/Intake and Output Vital Signs (last 24 hours): Temp Pulse Resp BP Pulse Ox 98.4 F 68 16 132/73 98 11/27/18 00:29 11/27/18 00:29 11/27/18 00:29 11/27/18 00:29 11/27/18 00:29 Intake and Output: 11/27/18 11/27/18 06:59 18:59 Intake Total 0 Balance 0 - Medications Medications: Current Medications Abacavir Sulfate (Ziagen) 300 mg PO BID [facility]; Protocol Last Admin: 11/26/18 17:55 Dose: 300 mg Acetaminophen (Tylenol 325mg Tab) 650 mg PO Q6 PRN PRN Reason: headache Last Admin: 11/26/18 11:39 Dose: 650 mg Albuterol/Ipratropium (Duoneb 3 Mg/0.5 Mg (3 Ml) Ud) 3 ml INH RQ4 [facility] Last Admin: 11/26/18 20:45 Dose: 3 ml Alprazolam (Xanax) 0.25 mg PO Q8H PRN PRN Reason: Anxiety Stop: 12/03/18 10:57 Last Admin: 11/26/18 11:06 Dose: 0.25 mg Amlodipine Besylate (Norvasc) 5 mg PO DAILY [facility] Last Admin: 11/26/18 10:09 Dose: 5 mg Aspirin (Ecotrin) 81 mg PO DAILY [facility] Last Admin: 11/23/18 10:28 Dose: Not Given Budesonide (Pulmicort Respules) 0.25 mg IH RQ12 [facility] Last Admin: 11/26/18 20:44 Dose: 0.25 mg Dextrose (Dextrose 50% Inj) 0 ml IV STAT PRN; Protocol PRN Reason: Hypoglycemia Protocol Dextrose (Glutose 15) 0 gm PO ONCE PRN; Protocol PRN Reason: Hypoglycemia Protocol Famotidine (Pepcid) 20 mg PO 1000 [facility] Last Admin: 11/26/18 10:09 Dose: 20 mg Ferrous Sulfate (Feosol) 325 mg PO DAILY [facility] Last Admin: 11/26/18 10:12 Dose: 325 mg Gabapentin (Neurontin) 300 mg PO TID [facility] Last Admin: 11/26/18 17:54 Dose: 300 mg Glucagon (Glucagen Diagnostic Kit) 0 mg IM STAT PRN; Protocol PRN Reason: Hypoglycemia Protocol Hydrocortisone (Anusol-Hc) 25 mg RC BID [facility] Last Admin: 11/26/18 17:57 Dose: Not Given Ceftriaxone Sodium 1 gm/ (Sodium Chloride) 100 mls @ 100 mls/hr IVPB DAILY [facility]; Protocol Last Admin: 11/26/18 10:29 Dose: 100 mls/hr Insulin Aspart (Novolog) 0 unit SC ACHS [facility]; Protocol Last Admin: 11/27/18 08:43 Dose: 3 units Insulin Detemir (Levemir) 32 unit SC Q12 [facility] Last Admin: 11/26/18 22:10 Dose: 32 u Lamivudine (Epivir) 300 mg PO DAILY [facility] Last Admin: 11/26/18 10:12 Dose: 300 mg Methylprednisolone (Solu-Medrol) 40 mg IVP DAILY [facility] Last Admin: 11/26/18 10:10 Dose: 40 mg Montelukast Sodium (Singulair) 10 mg PO HS [facility] Last Admin: 11/26/18 22:12 Dose: 10 mg Multivitamins/Minerals (Therapeutic-M Tab) 1 tab PO 0800 [facility] Last Admin: 11/27/18 08:44 Dose: 1 tab Ondansetron HCl (Zofran Inj) 8 mg IVP Q6H [facility] Last Admin: 11/26/18 22:14 Dose: Not Given Promethazine HCl (Phenergan Syrup) 12.5 mg PO Q6 PRN PRN Reason: Cough and congestion Last Admin: 11/27/18 05:22 Dose: 12.5 mg Raltegravir (Isentress) 400 mg PO BID [facility]; Protocol Last Admin: 11/26/18 17:54 Dose: 400 mg - Labs Labs: 11/25/18 07:20 11/25/18 07:20 PT 14.9 SECONDS (9.7-12.2) H 11/22/18 17:11 INR 1.4 11/22/18 17:11 APTT 44 SECONDS (21-34) H 11/22/18 17:11 - Constitutional Appears: In Acute Distress - Head Exam Head Exam: ATRAUMATIC - Eye Exam Eye Exam: Normal appearance Pupil Exam: NORMAL ACCOMODATION - ENT Exam ENT Exam: Normal Exam - Neck Exam Neck Exam: Full ROM - Respiratory Exam Respiratory Exam: Decreased Breath Sounds, Rales, Wheezes - Cardiovascular Exam Cardiovascular Exam: REGULAR RHYTHM - GI/Abdominal Exam GI & Abdominal Exam: Soft, Tenderness - Extremities Exam Extremities Exam: Full ROM - Back Exam Back Exam: NORMAL INSPECTION - Neurological Exam Neurological Exam: Awake, Oriented x3 - Psychiatric Exam Psychiatric exam: Anxious - Skin Skin Exam: Pallor Assessment and Plan - Assessment and Plan (Free Text) Assessment: copd exacerbation lung mass for bx tomoro hiv aneamia Plan: as per orders
[2018-11-27] MEDS: MethylPREDNISolone 40 mg Vial IVP SCH (11:30)
[2018-11-27] MEDS: Insulin Detemir 100 units/ml Vial (Levemir) SC SCH ×2 (11:31→21:27)
[2018-11-27] MEDS: Promethazine 6.25 MG/5 ML CUP PO PRN (12:34)
--- NOTE | 2018-11-27 12:59 | CP.PCM.PN ---
Subjective - Date & Time of Evaluation Date of Evaluation: 11/27/18 Time of Evaluation: 09:20 - Subjective Subjective: Patient seen and examined Still complaining of weakness and dyspnea on exertion Patient agreed for lung biopsy Objective - Vital Signs/Intake and Output Vital Signs (last 24 hours): Temp Pulse Resp BP Pulse Ox 98.6 F 90 20 114/72 97 11/27/18 10:00 11/27/18 10:00 11/27/18 10:00 11/27/18 10:00 11/27/18 10:00 Intake and Output: 11/27/18 11/27/18 06:59 18:59 Intake Total 0 Balance 0 - Medications Medications: Current Medications Abacavir Sulfate (Ziagen) 300 mg PO BID [facility]; Protocol Last Admin: 11/27/18 11:37 Dose: 300 mg Acetaminophen (Tylenol 325mg Tab) 650 mg PO Q6 PRN PRN Reason: headache Last Admin: 11/26/18 11:39 Dose: 650 mg Albuterol/Ipratropium (Duoneb 3 Mg/0.5 Mg (3 Ml) Ud) 3 ml INH RQ4 [facility] Last Admin: 11/27/18 11:33 Dose: Not Given Alprazolam (Xanax) 0.25 mg PO Q8H PRN PRN Reason: Anxiety Stop: 12/03/18 10:57 Last Admin: 11/26/18 11:06 Dose: 0.25 mg Amlodipine Besylate (Norvasc) 5 mg PO DAILY [facility] Last Admin: 11/27/18 11:31 Dose: 5 mg Aspirin (Ecotrin) 81 mg PO DAILY [facility] Last Admin: 11/23/18 10:28 Dose: Not Given Budesonide (Pulmicort Respules) 0.25 mg IH RQ12 [facility] Last Admin: 11/27/18 07:32 Dose: Not Given Dextrose (Dextrose 50% Inj) 0 ml IV STAT PRN; Protocol PRN Reason: Hypoglycemia Protocol Dextrose (Glutose 15) 0 gm PO ONCE PRN; Protocol PRN Reason: Hypoglycemia Protocol Famotidine (Pepcid) 20 mg PO 1000 [facility] Last Admin: 11/27/18 11:30 Dose: 20 mg Ferrous Sulfate (Feosol) 325 mg PO DAILY [facility] Last Admin: 11/27/18 11:30 Dose: 325 mg Gabapentin (Neurontin) 300 mg PO TID [facility] Last Admin: 11/27/18 11:30 Dose: 300 mg Glucagon (Glucagen Diagnostic Kit) 0 mg IM STAT PRN; Protocol PRN Reason: Hypoglycemia Protocol Hydrocortisone (Anusol-Hc) 25 mg RC BID [facility] Last Admin: 11/27/18 11:33 Dose: Not Given Ceftriaxone Sodium 1 gm/ (Sodium Chloride) 100 mls @ 100 mls/hr IVPB DAILY [facility]; Protocol Last Admin: 11/27/18 11:32 Dose: 100 mls/hr Insulin Aspart (Novolog) 0 unit SC ACHS [facility]; Protocol Last Admin: 11/27/18 12:17 Dose: 3 units Insulin Detemir (Levemir) 32 unit SC Q12 [facility] Last Admin: 11/27/18 11:31 Dose: 32 u Lamivudine (Epivir) 300 mg PO DAILY [facility] Last Admin: 11/27/18 11:34 Dose: 300 mg Methylprednisolone (Solu-Medrol) 40 mg IVP DAILY [facility] Last Admin: 11/27/18 11:30 Dose: 40 mg Montelukast Sodium (Singulair) 10 mg PO HS [facility] Last Admin: 11/26/18 22:12 Dose: 10 mg Multivitamins/Minerals (Therapeutic-M Tab) 1 tab PO 0800 [facility] Last Admin: 11/27/18 08:44 Dose: 1 tab Ondansetron HCl (Zofran Inj) 8 mg IVP Q6H [facility] Last Admin: 11/27/18 11:30 Dose: 8 mg Promethazine HCl (Phenergan Syrup) 12.5 mg PO Q6 PRN PRN Reason: Cough and congestion Last Admin: 11/27/18 12:34 Dose: 12.5 mg Promethazine HCl/Codeine (Phenergan/Codeine Oral Syrup) 5 ml PO HS [facility] Raltegravir (Isentress) 400 mg PO BID [facility]; Protocol Last Admin: 11/27/18 11:34 Dose: 400 mg - Labs Labs: 11/25/18 07:20 11/25/18 07:20 PT 14.9 SECONDS (9.7-12.2) H 11/22/18 17:11 INR 1.4 11/22/18 17:11 APTT 44 SECONDS (21-34) H 11/22/18 17:11 - Head Exam Head Exam: ATRAUMATIC, NORMOCEPHALIC - ENT Exam ENT Exam: Mucous Membranes Moist - Neck Exam Neck Exam: Normal Inspection - Respiratory Exam Respiratory Exam: Decreased Breath Sounds - Cardiovascular Exam Cardiovascular Exam: REGULAR RHYTHM - GI/Abdominal Exam GI & Abdominal Exam: Soft Assessment and Plan (1) COPD exacerbation Assessment & Plan: Continue nebulizer treatment, inhaled steroids CT-guided biopsy CAT scan of the chest Status: Acute (2) Cavitary lesion of lung Status: Acute
[2018-11-27 17:03] LABS: HEMOGLOBIN 7.3 g/dL (12.0-18.0); MEAN CELL VOLUME 81.4 fL (80.0-94.0); MEAN CORPUSCULAR HEMOGLOBIN 24.9 pg (27.0-31.0); MEAN CORPUSCULAR HGB CONC 30.6 g/dL (33.0-37.0); MEAN PLATELET VOLUME 7.5 fL (7.2-11.7); RBC 2.95 Mil/uL (4.40-5.90); RED CELL DISTRIBUTION WIDTH 17.5 % (11.5-14.5); WHITE BLOOD COUNT 15.9 K/uL (4.8-10.8)
[2018-11-27 17:12] LABS: INR 1.5; PROTHROMBIN TIME 15.9 SECONDS (9.7-12.2)
[2018-11-27 17:23] LABS: ALB/GLOB RATIO 0.9 (1.0-2.1); ALBUMIN 2.9 g/dL (3.5-5.0); ALT/SGPT < 6 U/L (21-72); AST/SGOT 14 U/L (17-59); BLOOD UREA NITROGEN 13 mg/dL (9-20); CALCIUM 8.7 mg/dl (8.6-10.4); GFR NON-AFRICAN AMERICAN > 60
--- NOTE | 2018-11-27 17:50 | CT ---
Date of service: 11/27/2018 PROCEDURE: CT Chest without contrast HISTORY: lung mass COMPARISON: Comparison is made to the previous study dated 04/12/2018 TECHNIQUE: Contiguous axial images were obtained through the chest without intravenous contrast enhancement. Sagittal and coronal reconstructions were performed. Radiation dose: Total exam DLP = 337.88 mGy-cm. This CT exam was performed using one or more of the following dose reduction techniques: Automated exposure control, adjustment of the mA and/or kV according to patient size, and/or use of iterative reconstruction technique. FINDINGS: LUNGS: Interval appearance of consolidation at the right lung upper lobe since the prior study. There is also adjacent spiculated nodule or mass in the right upper lobe. The possibility of neoplasm should be considered. The differential consolidation includes multifocal pneumonia. There is right perihilar opacities and consolidation also noted. There is partial atelectasis of the right lower lobe due to pleural effusion. There is also small atelectasis at the left lower lobe due to pleural effusion. MEDIASTINUM: Small atherosclerotic calcification noted at the aortic arch. Normal sized heart. There is small pericardial effusion. Main pulmonary artery is normal in caliber. There is lymphadenopathy seen at the right mediastinum and right hilum. Small atherosclerotic calcification noted. PLEURA: There is moderate right pleural effusion and small left pleural effusion. BONES: No fracture. No destructive lesion. UPPER ABDOMEN: There are new low-attenuation lesions in the liver noted. The possibility of metastasis should be considered. OTHER FINDINGS: None. IMPRESSION: Consolidation in the right lung upper lobe and right perihilar region. The possibility of neoplasm should be considered. The differential consideration includes multifocal pneumonia. Right mediastinal and right hilar lymphadenopathy. Moderate right and small left pleural effusion. New lesions in the liver noted suspicious for metastasis.
[2018-11-27] MEDS: Promethazine/Cod 6.25mg-10mg/5ml Syr UD PO SCH (21:27)
--- NOTE | 2018-11-27 23:11 | PN ---
DATE: 11/27/2018 LOCATION: 370, bed A. SUBJECTIVE: This 63-year-old male seen and examined in rounds with a complaint of generalized weakness and malaise, without reported active GI bleeding, significant chest pain, palpitation, but some shortness of breath on and off and abdominal pain with mild nausea and dyspepsia. The patient refused CAT scan of the abdomen and pelvis initially today. The entire chart is reviewed including but not limited to the most recent lab and radiology study results and today's lab showed white blood cells 15.9, hemoglobin dropped to 7.3, hematocrit 24 with thrombocytosis of 453. PT is 15.9, PTT 37. Blood glucose level 183 with low total protein and low albumin. PHYSICAL EXAMINATION: GENERAL: A 63-year-old male, awake, alert, afebrile with pulse of 100, respiratory rate 20-22, blood pressure 110/68. HEENT: Showed pale dry oral mucoid membrane. Nonicteric sclerae. LUNGS: Few scattered crepitation. Decreased air entry at bases. HEART: Positive S1 and S2. ABDOMEN: Soft with mild generalized tenderness. No mass or organomegaly and no rebound tenderness or guarding. EXTREMITIES: Without significant clubbing, cyanosis or edema. NEUROLOGIC: No reported new neurological deficits, sensory or motor. IMPRESSION: 1. Hypochromic microcytic anemia. 2. Re-exacerbation of peptic ulcer disease. 3. Abnormal CAT scan of the abdomen and pelvis. 4. Coagulopathy, could be drug-induced. 5. 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 SUGGESTIONS: 1. Continue current management. 2. Sectional abdominal and pelvic CAT scan also needed. 3. Continue current management. Sarai Reynolds MD
[2018-11-28] MEDS: Albuterol-Ipratrop 3 mg / 0.5 (3 ml) UD INH SCH ×7 (01:56→23:45)
[2018-11-28] MEDS: Promethazine 6.25 MG/5 ML CUP PO PRN (06:26)
[2018-11-28] MEDS: LIPASE/PROTEASE/AMYLASE 4,200 U ECC PO SCH ×4 (08:21→17:21)
[2018-11-28] MEDS: Multivitamin With Minerals Tab PO SCH ×2 (08:21→08:35)
[2018-11-28] MEDS: (Novolog) Insulin Aspart, Recombinant 100 u/ml 10 ml vial SC SCH ×5 (08:21→21:15)
[2018-11-28] MEDS: Budesonide 0.25 mg/2 ml Inhal Susp UD IH SCH ×2 (08:40→20:18)
[2018-11-28] MEDS: Insulin Detemir 100 units/ml Vial (Levemir) SC SCH ×2 (10:03→21:15)
[2018-11-28] MEDS: MethylPREDNISolone 40 mg Vial IVP SCH (10:14)
--- NOTE | 2018-11-28 10:47 | CP.PCM.PN ---
Subjective - Date & Time of Evaluation Date of Evaluation: 11/28/18 Time of Evaluation: 10:44 - Subjective Subjective: p0t still cughing whesing congested very weeke Objective - Vital Signs/Intake and Output Vital Signs (last 24 hours): Temp Pulse Resp BP Pulse Ox 98.9 F 101 H 20 104/70 97 11/28/18 07:27 11/28/18 07:27 11/28/18 07:27 11/28/18 07:27 11/28/18 07:27 Intake and Output: 11/28/18 11/28/18 06:59 18:59 Intake Total 0 Output Total 400 Balance -400 - Medications Medications: Current Medications Abacavir Sulfate (Ziagen) 300 mg PO BID [facility]; Protocol Last Admin: 11/28/18 10:37 Dose: 300 mg Acetaminophen (Tylenol 325mg Tab) 650 mg PO Q6 PRN PRN Reason: headache Last Admin: 11/26/18 11:39 Dose: 650 mg Albuterol/Ipratropium (Duoneb 3 Mg/0.5 Mg (3 Ml) Ud) 3 ml INH RQ4 [facility] Last Admin: 11/28/18 08:40 Dose: 3 ml Alprazolam (Xanax) 0.25 mg PO Q8H PRN PRN Reason: Anxiety Stop: 12/03/18 10:57 Last Admin: 11/26/18 11:06 Dose: 0.25 mg Amlodipine Besylate (Norvasc) 5 mg PO DAILY [facility] Last Admin: 11/28/18 10:38 Dose: 5 mg Aspirin (Ecotrin) 81 mg PO DAILY [facility] Last Admin: 11/23/18 10:28 Dose: Not Given Budesonide (Pulmicort Respules) 0.25 mg IH RQ12 [facility] Last Admin: 11/28/18 08:40 Dose: 0.25 mg Dextrose (Dextrose 50% Inj) 0 ml IV STAT PRN; Protocol PRN Reason: Hypoglycemia Protocol Dextrose (Glutose 15) 0 gm PO ONCE PRN; Protocol PRN Reason: Hypoglycemia Protocol Famotidine (Pepcid) 20 mg PO 1000 [facility] Last Admin: 11/28/18 10:04 Dose: Not Given Ferrous Sulfate (Feosol) 325 mg PO DAILY [facility] Last Admin: 11/28/18 10:38 Dose: 325 mg Gabapentin (Neurontin) 300 mg PO TID [facility] Last Admin: 11/28/18 10:37 Dose: 300 mg Glucagon (Glucagen Diagnostic Kit) 0 mg IM STAT PRN; Protocol PRN Reason: Hypoglycemia Protocol Hydrocortisone (Anusol-Hc) 25 mg RC BID [facility] Last Admin: 11/28/18 10:03 Dose: Not Given Ceftriaxone Sodium 1 gm/ (Sodium Chloride) 100 mls @ 100 mls/hr IVPB DAILY [facility]; Protocol Last Admin: 11/27/18 11:32 Dose: 100 mls/hr Insulin Aspart (Novolog) 0 unit SC ACHS [facility]; Protocol Last Admin: 11/28/18 08:36 Dose: Not Given Insulin Detemir (Levemir) 32 unit SC Q12 [facility] Last Admin: 11/28/18 10:03 Dose: Not Given Lamivudine (Epivir) 300 mg PO DAILY [facility] Last Admin: 11/28/18 10:37 Dose: 300 mg Methylprednisolone (Solu-Medrol) 40 mg IVP DAILY [facility] Last Admin: 11/28/18 10:14 Dose: 40 mg Montelukast Sodium (Singulair) 10 mg PO HS [facility] Last Admin: 11/27/18 21:26 Dose: 10 mg Multivitamins/Minerals (Therapeutic-M Tab) 1 tab PO 0800 [facility] Last Admin: 11/28/18 08:35 Dose: Not Given Ondansetron HCl (Zofran Inj) 8 mg IVP Q6H [facility] Last Admin: 11/28/18 10:15 Dose: Not Given Promethazine HCl (Phenergan Syrup) 12.5 mg PO Q6 PRN PRN Reason: Cough and congestion Last Admin: 11/28/18 06:26 Dose: 12.5 mg Promethazine HCl/Codeine (Phenergan/Codeine Oral Syrup) 5 ml PO HS [facility] Last Admin: 11/27/18 21:27 Dose: 5 ml Raltegravir (Isentress) 400 mg PO BID [facility]; Protocol Last Admin: 11/28/18 10:03 Dose: Not Given - Labs Labs: 11/27/18 16:55 11/27/18 16:55 PT 15.9 SECONDS (9.7-12.2) H 11/27/18 16:55 INR 1.5 11/27/18 16:55 APTT 37 SECONDS (21-34) H 11/27/18 16:55 - Constitutional Appears: In Acute Distress - Head Exam Head Exam: ATRAUMATIC - Eye Exam Eye Exam: Normal appearance Pupil Exam: NORMAL ACCOMODATION - ENT Exam ENT Exam: Normal Exam - Neck Exam Neck Exam: Normal Inspection - Respiratory Exam Respiratory Exam: Decreased Breath Sounds, Rales, Rhonchi, Wheezes - Cardiovascular Exam Cardiovascular Exam: REGULAR RHYTHM - GI/Abdominal Exam GI & Abdominal Exam: Normal Bowel Sounds - Exam Exam: NORMAL INSPECTION - Extremities Exam Extremities Exam: Normal Inspection - Back Exam Back Exam: NORMAL INSPECTION - Neurological Exam Neurological Exam: Awake - Psychiatric Exam Psychiatric exam: Normal Affect - Skin Skin Exam: Pallor Assessment and Plan - Assessment and Plan (Free Text) Assessment: severe aneamia required transfusion long infection hiv for bronchoscopy tomorro Plan: as discused with dr oliveira bronchoscopy in am
--- NOTE | 2018-11-28 14:16 | CP.PCM.PN ---
Subjective - Date & Time of Evaluation Date of Evaluation: 11/28/18 Time of Evaluation: 10:30 - Subjective Subjective: Patient seen and examined Complaining of weakness Less shortness of breath and cough Patient refusing bronchoscopy Afebrile Objective - Vital Signs/Intake and Output Vital Signs (last 24 hours): Temp Pulse Resp BP Pulse Ox 98.9 F 101 H 20 104/70 97 11/28/18 07:27 11/28/18 07:27 11/28/18 07:27 11/28/18 07:27 11/28/18 07:27 Intake and Output: 11/28/18 11/28/18 06:59 18:59 Intake Total 0 Output Total 400 Balance -400 - Medications Medications: Current Medications Abacavir Sulfate (Ziagen) 300 mg PO BID [facility]; Protocol Last Admin: 11/28/18 10:37 Dose: 300 mg Acetaminophen (Tylenol 325mg Tab) 650 mg PO Q6 PRN PRN Reason: headache Last Admin: 11/26/18 11:39 Dose: 650 mg Albuterol/Ipratropium (Duoneb 3 Mg/0.5 Mg (3 Ml) Ud) 3 ml INH RQ4 [facility] Last Admin: 11/28/18 08:40 Dose: 3 ml Alprazolam (Xanax) 0.25 mg PO Q8H PRN PRN Reason: Anxiety Stop: 12/03/18 10:57 Last Admin: 11/28/18 11:02 Dose: 0.25 mg Amlodipine Besylate (Norvasc) 5 mg PO DAILY [facility] Last Admin: 11/28/18 10:38 Dose: 5 mg Aspirin (Ecotrin) 81 mg PO DAILY [facility] Last Admin: 11/23/18 10:28 Dose: Not Given Budesonide (Pulmicort Respules) 0.25 mg IH RQ12 [facility] Last Admin: 11/28/18 08:40 Dose: 0.25 mg Dextrose (Dextrose 50% Inj) 0 ml IV STAT PRN; Protocol PRN Reason: Hypoglycemia Protocol Dextrose (Glutose 15) 0 gm PO ONCE PRN; Protocol PRN Reason: Hypoglycemia Protocol Famotidine (Pepcid) 20 mg PO 1000 [facility] Last Admin: 11/28/18 10:04 Dose: Not Given Ferrous Sulfate (Feosol) 325 mg PO DAILY [facility] Last Admin: 11/28/18 10:38 Dose: 325 mg Gabapentin (Neurontin) 300 mg PO TID [facility] Last Admin: 11/28/18 13:38 Dose: 300 mg Glucagon (Glucagen Diagnostic Kit) 0 mg IM STAT PRN; Protocol PRN Reason: Hypoglycemia Protocol Hydrocortisone (Anusol-Hc) 25 mg RC BID [facility] Last Admin: 11/28/18 10:03 Dose: Not Given Ceftriaxone Sodium 1 gm/ (Sodium Chloride) 100 mls @ 100 mls/hr IVPB DAILY [facility]; Protocol Last Admin: 11/28/18 12:27 Dose: 100 mls/hr Insulin Aspart (Novolog) 0 unit SC ACHS [facility]; Protocol Last Admin: 11/28/18 13:38 Dose: Not Given Insulin Detemir (Levemir) 32 unit SC Q12 [facility] Last Admin: 11/28/18 10:03 Dose: Not Given Lamivudine (Epivir) 300 mg PO DAILY [facility] Last Admin: 11/28/18 10:37 Dose: 300 mg Methylprednisolone (Solu-Medrol) 40 mg IVP DAILY [facility] Last Admin: 11/28/18 10:14 Dose: 40 mg Montelukast Sodium (Singulair) 10 mg PO HS [facility] Last Admin: 11/27/18 21:26 Dose: 10 mg Multivitamins/Minerals (Therapeutic-M Tab) 1 tab PO 0800 [facility] Last Admin: 11/28/18 08:35 Dose: Not Given Ondansetron HCl (Zofran Inj) 8 mg IVP Q6H [facility] Last Admin: 11/28/18 10:15 Dose: Not Given Promethazine HCl (Phenergan Syrup) 12.5 mg PO Q6 PRN PRN Reason: Cough and congestion Last Admin: 11/28/18 06:26 Dose: 12.5 mg Promethazine HCl/Codeine (Phenergan/Codeine Oral Syrup) 5 ml PO HS [facility] Last Admin: 11/27/18 21:27 Dose: 5 ml Raltegravir (Isentress) 400 mg PO BID [facility]; Protocol Last Admin: 11/28/18 11:02 Dose: 400 mg - Labs Labs: 11/27/18 16:55 11/27/18 16:55 PT 15.9 SECONDS (9.7-12.2) H 11/27/18 16:55 INR 1.5 11/27/18 16:55 APTT 37 SECONDS (21-34) H 11/27/18 16:55 - Head Exam Head Exam: ATRAUMATIC, NORMOCEPHALIC - ENT Exam ENT Exam: Mucous Membranes Moist - Neck Exam Neck Exam: Normal Inspection - Respiratory Exam Respiratory Exam: Decreased Breath Sounds - Cardiovascular Exam Cardiovascular Exam: REGULAR RHYTHM - GI/Abdominal Exam GI & Abdominal Exam: Soft, Normal Bowel Sounds - Extremities Exam Extremities Exam: Normal Inspection Assessment and Plan (1) COPD exacerbation Assessment & Plan: Continue nebulizer treatment and taper steroids Patient refusing bronchoscopy Status: Acute (2) Cavitary lesion of lung Status: Acute
[2018-11-28 18:00] LABS: % CD4 (T HELPER CELL) 42 Percent (30-61); % CD8 (SUPPRESSOR T CELL) 36 Percent (12-42); ABSOLUTE CD4 CELLS 424 Cells/mcL (490-1740); ABSOLUTE CD8 CELLS 368 Cells/mcL (180-1170); ABSOLUTE LYMPHOCYTES 1014 Cells/mcL (850-3900); HELPER/SUPPRESSOR RATIO 1.15 Ratio (0.86-5.00)
--- NOTE | 2018-11-28 19:21 | PN ---
DATE: 11/28/2018 LOCATION: 370, bed A. SUBJECTIVE: This 63-year-old male seen and examined in rounds post colonoscopy without significant clinical changes. No reported active bleeding. The entire chart is reviewed including but not limited to the most recent lab and radiology study results, current and previous medication list and today's blood glucose level is 175. Rest of the lab results still pending. However, the patient had leukocytosis with low hemoglobin and hematocrit with low albumin and low total protein. Most recent chest CAT scan is seen. PHYSICAL EXAMINATION: GENERAL: A 63-year-old male. VITAL SIGNS: Afebrile with pulse of 96, respiratory rate 20-22, blood pressure 108/72. HEENT: Showed pale dry mucous membrane. Nonicteric sclerae. LUNGS: Few scattered crepitation. Decreased air entry at bases. HEART: Positive S1 and S2. ABDOMEN: Soft with mild generalized tenderness. No mass or organomegaly. No rebound tenderness or guarding. RECTAL: The patient refused. EXTREMITIES: Without edema, clubbing or cyanosis. IMPRESSION: 1. Re-exacerbation of peptic ulcer disease. 2. Recent reported history of guaiac-positive stool with subsequent drop of hemoglobin and hematocrit. 3. Coagulopathy. 4. 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 SUGGESTIONS: 1. Continue current management. 2. Follow up chest CAT scan and x-ray results. Sarai Reynolds MD
[2018-11-28] MEDS: Promethazine/Cod 6.25mg-10mg/5ml Syr UD PO SCH (21:16)
[2018-11-28 23:36] VITALS: RESP 20
[2018-11-29] MEDS: Albuterol-Ipratrop 3 mg / 0.5 (3 ml) UD INH SCH ×4 (03:13→15:41)
[2018-11-29] MEDS: Promethazine 6.25 MG/5 ML CUP PO PRN ×2 (06:03→12:44)
[2018-11-29 07:32] LABS: BASO % 0.1 % (0.0-2.0); EOS % 0.1 % (0.0-4.0); LYMPH # 1.7 K/uL (1.0-4.3); LYMPH % 10.5 % (20.0-40.0); MEAN CELL VOLUME 83.3 fL (80.0-94.0); MEAN CORPUSCULAR HEMOGLOBIN 26.7 pg (27.0-31.0); MEAN CORPUSCULAR HGB CONC 32.1 g/dL (33.0-37.0); MEAN PLATELET VOLUME 7.9 fL (7.2-11.7); MONO # 0.9 K/uL (0.0-0.8); MONO % 5.2 % (0.0-10.0); NEUT # 13.8 K/uL (1.8-7.0); NEUT % 84.1 % (50.0-75.0); NRBC % 0.1 % (0.0-2.0); RBC 3.67 Mil/uL (4.40-5.90); RED CELL DISTRIBUTION WIDTH 16.2 % (11.5-14.5); WHITE BLOOD COUNT 16.4 K/uL (4.8-10.8)
[2018-11-29 07:45] VITALS: PULSE 93; TEMP 98.1; O2SAT 96
[2018-11-29 07:45] LABS: BLOOD UREA NITROGEN 21 mg/dL (9-20); CALCIUM 8.6 mg/dl (8.6-10.4); GFR NON-AFRICAN AMERICAN > 60
[2018-11-29 07:57] LABS: HEMOGLOBIN 9.8 g/dL (12.0-18.0)
[2018-11-29] MEDS: Multivitamin With Minerals Tab PO SCH (08:34)
[2018-11-29] MEDS: (Novolog) Insulin Aspart, Recombinant 100 u/ml 10 ml vial SC SCH ×2 (08:34→12:39)
[2018-11-29] MEDS: LIPASE/PROTEASE/AMYLASE 4,200 U ECC PO SCH ×2 (08:34→12:37)
[2018-11-29] MEDS: Budesonide 0.25 mg/2 ml Inhal Susp UD IH SCH (08:50)
[2018-11-29] MEDS: Insulin Detemir 100 units/ml Vial (Levemir) SC SCH (10:39)
[2018-11-29] MEDS: MethylPREDNISolone 40 mg Vial IVP SCH (10:41)
--- NOTE | 2018-11-29 12:10 | CP.PCM.PN ---
Subjective - Date & Time of Evaluation Date of Evaluation: 11/29/18 Time of Evaluation: 12:07 - Subjective Subjective: pt has less cough congested as per dr oliveira refused bronchoscopy Objective - Vital Signs/Intake and Output Vital Signs (last 24 hours): Temp Pulse Resp BP Pulse Ox 98.1 F 93 H 20 101/64 96 11/29/18 07:41 11/29/18 07:41 11/29/18 07:41 11/29/18 07:41 11/29/18 07:41 Intake and Output: 11/29/18 11/29/18 06:59 18:59 Intake Total 1330 Balance 1330 - Medications Medications: Current Medications Abacavir Sulfate (Ziagen) 300 mg PO BID [facility]; Protocol Last Admin: 11/29/18 10:42 Dose: 300 mg Acetaminophen (Tylenol 325mg Tab) 650 mg PO Q6 PRN PRN Reason: headache Last Admin: 11/29/18 08:35 Dose: 650 mg Albuterol/Ipratropium (Duoneb 3 Mg/0.5 Mg (3 Ml) Ud) 3 ml INH RQ4 [facility] Last Admin: 11/29/18 08:50 Dose: 3 ml Alprazolam (Xanax) 0.25 mg PO Q8H PRN PRN Reason: Anxiety Stop: 12/03/18 10:57 Last Admin: 11/29/18 08:34 Dose: 0.25 mg Amlodipine Besylate (Norvasc) 5 mg PO DAILY [facility] Last Admin: 11/29/18 10:40 Dose: Not Given Aspirin (Ecotrin) 81 mg PO DAILY [facility] Last Admin: 11/23/18 10:28 Dose: Not Given Budesonide (Pulmicort Respules) 0.25 mg IH RQ12 [facility] Last Admin: 11/29/18 08:50 Dose: 0.25 mg Dextrose (Dextrose 50% Inj) 0 ml IV STAT PRN; Protocol PRN Reason: Hypoglycemia Protocol Dextrose (Glutose 15) 0 gm PO ONCE PRN; Protocol PRN Reason: Hypoglycemia Protocol Famotidine (Pepcid) 20 mg PO 1000 [facility] Last Admin: 11/29/18 10:40 Dose: 20 mg Ferrous Sulfate (Feosol) 325 mg PO DAILY [facility] Last Admin: 11/29/18 10:38 Dose: 325 mg Gabapentin (Neurontin) 300 mg PO TID [facility] Last Admin: 11/29/18 10:40 Dose: 300 mg Glucagon (Glucagen Diagnostic Kit) 0 mg IM STAT PRN; Protocol PRN Reason: Hypoglycemia Protocol Hydrocortisone (Anusol-Hc) 25 mg RC BID [facility] Last Admin: 11/29/18 10:37 Dose: Not Given Ceftriaxone Sodium 1 gm/ (Sodium Chloride) 100 mls @ 100 mls/hr IVPB DAILY [facility]; Protocol Last Admin: 11/29/18 10:52 Dose: 100 mls/hr Insulin Aspart (Novolog) 0 unit SC ACHS [facility]; Protocol Last Admin: 11/29/18 08:34 Dose: 4 units Insulin Detemir (Levemir) 32 unit SC Q12 [facility] Last Admin: 11/29/18 10:39 Dose: 32 u Lamivudine (Epivir) 300 mg PO DAILY [facility] Last Admin: 11/29/18 10:37 Dose: 300 mg Methylprednisolone (Solu-Medrol) 40 mg IVP DAILY [facility] Last Admin: 11/29/18 10:41 Dose: 40 mg Montelukast Sodium (Singulair) 10 mg PO HS [facility] Last Admin: 11/28/18 21:16 Dose: 10 mg Multivitamins/Minerals (Therapeutic-M Tab) 1 tab PO 0800 [facility] Last Admin: 11/29/18 08:34 Dose: 1 tab Ondansetron HCl (Zofran Inj) 8 mg IVP Q6H [facility] Last Admin: 11/29/18 10:42 Dose: Not Given Promethazine HCl (Phenergan Syrup) 12.5 mg PO Q6 PRN PRN Reason: Cough and congestion Last Admin: 11/29/18 06:03 Dose: 12.5 mg Promethazine HCl/Codeine (Phenergan/Codeine Oral Syrup) 5 ml PO HS [facility] Last Admin: 11/28/18 21:16 Dose: 5 ml Raltegravir (Isentress) 400 mg PO BID [facility]; Protocol Last Admin: 11/29/18 10:38 Dose: 400 mg - Labs Labs: 11/29/18 07:21 11/29/18 07:21 PT 15.9 SECONDS (9.7-12.2) H 11/27/18 16:55 INR 1.5 11/27/18 16:55 APTT 37 SECONDS (21-34) H 11/27/18 16:55 - Constitutional Appears: Non-toxic - Head Exam Head Exam: ATRAUMATIC - Eye Exam Eye Exam: Normal appearance Pupil Exam: NORMAL ACCOMODATION - ENT Exam ENT Exam: Mucous Membranes Moist - Neck Exam Neck Exam: Normal Inspection - Respiratory Exam Respiratory Exam: Clear to Ausculation Bilateral - Cardiovascular Exam Cardiovascular Exam: REGULAR RHYTHM - GI/Abdominal Exam GI & Abdominal Exam: Normal Bowel Sounds - Back Exam Back Exam: NORMAL INSPECTION - Neurological Exam Neurological Exam: Alert, Awake, Oriented x3 - Psychiatric Exam Psychiatric exam: Normal Affect - Skin Skin Exam: Pallor Assessment and Plan - Assessment and Plan (Free Text) Assessment: aneamia improved after transfusion copd congesion will add lasix plan for discharge Plan: disch on med f/u as out pt
--- NOTE | 2018-11-29 13:18 | CP.PCM.PN ---
Subjective - Date & Time of Evaluation Date of Evaluation: 11/29/18 Time of Evaluation: 13:00 - Subjective Subjective: Patient seen today states sob improved , wants to go home refused bronchoscopy vss and labs reviewed- stable Objective - Vital Signs/Intake and Output Vital Signs (last 24 hours): Temp Pulse Resp BP Pulse Ox 98.1 F 93 H 20 107/73 96 11/29/18 07:41 11/29/18 07:41 11/29/18 07:41 11/29/18 12:37 11/29/18 07:41 Intake and Output: 11/29/18 11/29/18 06:59 18:59 Intake Total 1330 Balance 1330 - Medications Medications: Current Medications Abacavir Sulfate (Ziagen) 300 mg PO BID [facility]; Protocol Last Admin: 11/29/18 10:42 Dose: 300 mg Acetaminophen (Tylenol 325mg Tab) 650 mg PO Q6 PRN PRN Reason: headache Last Admin: 11/29/18 08:35 Dose: 650 mg Albuterol/Ipratropium (Duoneb 3 Mg/0.5 Mg (3 Ml) Ud) 3 ml INH RQ4 [facility] Last Admin: 11/29/18 08:50 Dose: 3 ml Alprazolam (Xanax) 0.25 mg PO Q8H PRN PRN Reason: Anxiety Stop: 12/03/18 10:57 Last Admin: 11/29/18 08:34 Dose: 0.25 mg Amlodipine Besylate (Norvasc) 5 mg PO DAILY [facility] Last Admin: 11/29/18 10:40 Dose: Not Given Aspirin (Ecotrin) 81 mg PO DAILY [facility] Last Admin: 11/23/18 10:28 Dose: Not Given Budesonide (Pulmicort Respules) 0.25 mg IH RQ12 [facility] Last Admin: 11/29/18 08:50 Dose: 0.25 mg Dextrose (Dextrose 50% Inj) 0 ml IV STAT PRN; Protocol PRN Reason: Hypoglycemia Protocol Dextrose (Glutose 15) 0 gm PO ONCE PRN; Protocol PRN Reason: Hypoglycemia Protocol Famotidine (Pepcid) 20 mg PO 1000 [facility] Last Admin: 11/29/18 10:40 Dose: 20 mg Ferrous Sulfate (Feosol) 325 mg PO DAILY [facility] Last Admin: 11/29/18 10:38 Dose: 325 mg Furosemide (Lasix) 20 mg PO DAILY [facility] Last Admin: 11/29/18 12:37 Dose: 20 mg Gabapentin (Neurontin) 300 mg PO TID [facility] Last Admin: 11/29/18 10:40 Dose: 300 mg Glucagon (Glucagen Diagnostic Kit) 0 mg IM STAT PRN; Protocol PRN Reason: Hypoglycemia Protocol Hydrocortisone (Anusol-Hc) 25 mg RC BID [facility] Last Admin: 11/29/18 10:37 Dose: Not Given Ceftriaxone Sodium 1 gm/ (Sodium Chloride) 100 mls @ 100 mls/hr IVPB DAILY [facility]; Protocol Last Admin: 11/29/18 10:52 Dose: 100 mls/hr Insulin Aspart (Novolog) 0 unit SC ACHS [facility]; Protocol Last Admin: 11/29/18 12:39 Dose: 6 units Insulin Detemir (Levemir) 32 unit SC Q12 [facility] Last Admin: 11/29/18 10:39 Dose: 32 u Lamivudine (Epivir) 300 mg PO DAILY [facility] Last Admin: 11/29/18 10:37 Dose: 300 mg Methylprednisolone (Solu-Medrol) 40 mg IVP DAILY [facility] Last Admin: 11/29/18 10:41 Dose: 40 mg Montelukast Sodium (Singulair) 10 mg PO HS [facility] Last Admin: 11/28/18 21:16 Dose: 10 mg Multivitamins/Minerals (Therapeutic-M Tab) 1 tab PO 0800 [facility] Last Admin: 11/29/18 08:34 Dose: 1 tab Ondansetron HCl (Zofran Inj) 8 mg IVP Q6H [facility] Last Admin: 11/29/18 10:42 Dose: Not Given Promethazine HCl (Phenergan Syrup) 12.5 mg PO Q6 PRN PRN Reason: Cough and congestion Last Admin: 11/29/18 12:44 Dose: 12.5 mg Promethazine HCl/Codeine (Phenergan/Codeine Oral Syrup) 5 ml PO HS [facility] Last Admin: 11/28/18 21:16 Dose: 5 ml Raltegravir (Isentress) 400 mg PO BID [facility]; Protocol Last Admin: 11/29/18 10:38 Dose: 400 mg - Labs Labs: 11/29/18 07:21 11/29/18 07:21 PT 15.9 SECONDS (9.7-12.2) H 11/27/18 16:55 INR 1.5 11/27/18 16:55 APTT 37 SECONDS (21-34) H 11/27/18 16:55 Assessment and Plan - Assessment and Plan (Free Text) Assessment: A/P 63 year old male with past medical history of HIV on HAART, COPD on 2L home oxygen, HTN, DM, untreated hepatitis C, cataracts, and chronic pancreatitis, presenting with shortness of breath for the past 2 days admitted with exc. copd S/P PRBC transfusion hgb stable- 9.8 Patient refused bronchoscopy seen by Dr. Garcia today , cleared fro discharge home today and f/u with Dr. Garcia or clinic in 3 days RX given for neb and steroids and levaquin x 7 days Patient instructed to return s to ED if symptoms returns
--- NOTE | 2018-11-29 13:48 | PN ---
DATE: 11/29/2018 LOCATION: 370, bed A. SUBJECTIVE: This is a 63-year-old male seen and examined earlier in rounds, post colonoscopy was biopsied recently, without reported active bleeding, nausea or vomiting, but mild generalized tenderness and malaise with subsequent drop of hemoglobin and hematocrit for which the patient had blood transfusion. No reported chest pain or palpitation. The entire chart is reviewed including but not limited to the most recent lab and radiology study results and post blood transfusion, hemoglobin was 9.8, hematocrit 30.6, white blood cells 16.4 with low indices likely suggestive of hypochromic microcytic anemia with BUN of 21, blood glucose level 304. Most recently done chest CAT scan, official report is seen. PHYSICAL EXAMINATION: GENERAL: A 63-year-old male. VITAL SIGNS: Afebrile, blood pressure 98/62, heart rate of 88, respiratory rate 20-22. HEENT: Showed pale dry oral mucous membrane. Nonicteric sclerae. LUNGS: Few scattered crepitation. Decreased air entry at bases. HEART: Positive S1 and S2 with increased rate. ABDOMEN: Soft with mild generalized tenderness. No mass or organomegaly. No rebound tenderness or guarding. EXTREMITIES: Without significant clubbing, cyanosis or edema. NEUROLOGIC: No reported new neurological deficits sensory or motor. IMPRESSION: 1. Re-exacerbation of peptic ulcer disease. 2. Pneumonia with abnormal chest CAT scan, with cavitation . 3. Guaiac-positive stool with subsequent drop of hemoglobin and hematocrit indicative of gastrointestinal blood loss recently. 4. Coagulopathy. 5. Known history of human immunodeficiency virus. SUGGESTIONS: 1. Continue current management. 2. Blood transfusion as needed to keep hemoglobin around 10 g percent. 3. Further recommendation to follow. Sarai Reynolds MD
[2018-11-29 14:02] VITALS: BP 130/73
--- NOTE | 2018-11-29 15:38 | CP.PCM.PN ---
Subjective - Date & Time of Evaluation Date of Evaluation: 11/29/18 Time of Evaluation: 12:20 - Subjective Subjective: Patient seen and examined Sitting comfortably in no distress but still has productive cough Afebrile Still refusing bronchoscopy Patient being discharged home Nebulizer treatment and steroids Objective - Vital Signs/Intake and Output Vital Signs (last 24 hours): Temp Pulse Resp BP Pulse Ox 98.1 F 93 H 20 130/73 96 11/29/18 07:41 11/29/18 07:41 11/29/18 07:41 11/29/18 13:58 11/29/18 07:41 Intake and Output: 11/29/18 11/29/18 06:59 18:59 Intake Total 1330 Balance 1330 - Medications Medications: Current Medications Abacavir Sulfate (Ziagen) 300 mg PO BID [facility]; Protocol Last Admin: 11/29/18 10:42 Dose: 300 mg Acetaminophen (Tylenol 325mg Tab) 650 mg PO Q6 PRN PRN Reason: headache Last Admin: 11/29/18 08:35 Dose: 650 mg Albuterol/Ipratropium (Duoneb 3 Mg/0.5 Mg (3 Ml) Ud) 3 ml INH RQ4 [facility] Last Admin: 11/29/18 11:50 Dose: 3 ml Alprazolam (Xanax) 0.25 mg PO Q8H PRN PRN Reason: Anxiety Stop: 12/03/18 10:57 Last Admin: 11/29/18 08:34 Dose: 0.25 mg Amlodipine Besylate (Norvasc) 5 mg PO DAILY [facility] Last Admin: 11/29/18 10:40 Dose: Not Given Aspirin (Ecotrin) 81 mg PO DAILY [facility] Last Admin: 11/23/18 10:28 Dose: Not Given Budesonide (Pulmicort Respules) 0.25 mg IH RQ12 [facility] Last Admin: 11/29/18 08:50 Dose: 0.25 mg Dextrose (Dextrose 50% Inj) 0 ml IV STAT PRN; Protocol PRN Reason: Hypoglycemia Protocol Dextrose (Glutose 15) 0 gm PO ONCE PRN; Protocol PRN Reason: Hypoglycemia Protocol Famotidine (Pepcid) 20 mg PO 1000 [facility] Last Admin: 11/29/18 10:40 Dose: 20 mg Ferrous Sulfate (Feosol) 325 mg PO DAILY [facility] Last Admin: 11/29/18 10:38 Dose: 325 mg Furosemide (Lasix) 20 mg PO DAILY [facility] Last Admin: 11/29/18 12:37 Dose: 20 mg Gabapentin (Neurontin) 300 mg PO TID [facility] Last Admin: 11/29/18 13:58 Dose: 300 mg Glucagon (Glucagen Diagnostic Kit) 0 mg IM STAT PRN; Protocol PRN Reason: Hypoglycemia Protocol Hydrocortisone (Anusol-Hc) 25 mg RC BID [facility] Last Admin: 11/29/18 10:37 Dose: Not Given Ceftriaxone Sodium 1 gm/ (Sodium Chloride) 100 mls @ 100 mls/hr IVPB DAILY [facility]; Protocol Last Admin: 11/29/18 10:52 Dose: 100 mls/hr Insulin Aspart (Novolog) 0 unit SC ACHS [facility]; Protocol Last Admin: 11/29/18 12:39 Dose: 6 units Insulin Detemir (Levemir) 32 unit SC Q12 [facility] Last Admin: 11/29/18 10:39 Dose: 32 u Lamivudine (Epivir) 300 mg PO DAILY [facility] Last Admin: 11/29/18 10:37 Dose: 300 mg Methylprednisolone (Solu-Medrol) 40 mg IVP DAILY [facility] Last Admin: 11/29/18 10:41 Dose: 40 mg Montelukast Sodium (Singulair) 10 mg PO HS [facility] Last Admin: 11/28/18 21:16 Dose: 10 mg Multivitamins/Minerals (Therapeutic-M Tab) 1 tab PO 0800 [facility] Last Admin: 11/29/18 08:34 Dose: 1 tab Ondansetron HCl (Zofran Inj) 8 mg IVP Q6H [facility] Last Admin: 11/29/18 10:42 Dose: Not Given Promethazine HCl (Phenergan Syrup) 12.5 mg PO Q6 PRN PRN Reason: Cough and congestion Last Admin: 11/29/18 12:44 Dose: 12.5 mg Promethazine HCl/Codeine (Phenergan/Codeine Oral Syrup) 5 ml PO HS [facility] Last Admin: 11/28/18 21:16 Dose: 5 ml Raltegravir (Isentress) 400 mg PO BID [facility]; Protocol Last Admin: 11/29/18 10:38 Dose: 400 mg - Labs Labs: 11/29/18 07:21 11/29/18 07:21 PT 15.9 SECONDS (9.7-12.2) H 11/27/18 16:55 INR 1.5 11/27/18 16:55 APTT 37 SECONDS (21-34) H 11/27/18 16:55 Assessment and Plan (1) COPD exacerbation Status: Acute (2) Cavitary lesion of lung Status: Acute
--- NOTE | 2018-12-05 12:27 | DS ---
HOSPITAL COURSE: He came into the emergency room and admitted on 11/19/2018. He came in complaining of shortness of breath, coughing, wheezing, and difficulty breathing. He also has HIV history and when he came in, his temperature was 98.3 and his blood pressure 123/69. His CBC; white count was high 12.8, hemoglobin 9.2, and his sugar was 420. The patient was admitted and seen by Dr. Dominic Bowles. He has also history of hepatitis C and chronic pancreatitis . He was in short of breath. He has some rales and rhonchi. He denies dysuria, burning, hematuria, or penile discharge. His white count was improving. His sugar was monitored and controlled with insulin. He was taking nebulizer and steroids IV and the IV antibiotic, and he had chest x-ray and V/Q scan done, which was low probability for embolism, so that was ruled out. So he was continued to be on medications and he was also seen by Dr. Thompson, the Infectious Disease doctor for his HIV and pulmonary infection. He is to continue on his medications IV and p.o. antibiotics and on 11/29/2018, he was feeling a little bit better. He was advised bronchoscopy, but he refused it, so he was discharged on his medications and the antibiotics to continue and the nebulizer and the oxygen and all his medications. FINAL DIAGNOSES: 1. Acute exacerbation of chronic obstructive pulmonary disease. 2. Human immunodeficiency virus. 3. Anemia. 4. Diabetes mellitus, insulin-dependent. 5. Generalized weakness. Jana Garcia MD
== END 2018-11-29 15:43 | disposition home or self-care (01) | DRG 190 ==
LOC: SUPCPDRO 21:46 → C.ER 21:46 → C.9E 11-19 02:47 → C.3T 11-19 04:37
PROVIDERS: ADMIT Internal Medicine; ATTEND Internal Medicine
PROC: 30233N1 Transfusion of Nonautologous Red Blood Cells into Peripheral Vein, Percutaneous Approach (ICD-10-PCS; principal; 2018-11-28)
DX: J44.1 Chronic obstructive pulmonary disease with (acute) exacerbation (principal); J18.9 Pneumonia, unspecified organism; A15.0 Tuberculosis of lung; B37.0 Candidal stomatitis; K27.3 Acute peptic ulcer, site unspecified, without hemorrhage or perforation; K86.1 Other chronic pancreatitis; E87.3 Alkalosis; J44.0 Chronic obstructive pulmonary disease with (acute) lower respiratory infection; Z21 Asymptomatic human immunodeficiency virus [HIV] infection status; E11.65 Type 2 diabetes mellitus with hyperglycemia; K64.4 Residual hemorrhoidal skin tags; D50.0 Iron deficiency anemia secondary to blood loss (chronic); K64.8 Other hemorrhoids; E11.40 Type 2 diabetes mellitus with diabetic neuropathy, unspecified; Z79.4 Long term (current) use of insulin; F41.9 Anxiety disorder, unspecified; I11.0 Hypertensive heart disease with heart failure; I50.9 Heart failure, unspecified; G47.30 Sleep apnea, unspecified; Z99.81 Dependence on supplemental oxygen; Z87.891 Personal history of nicotine dependence; K29.70 Gastritis, unspecified, without bleeding; R91.1 Solitary pulmonary nodule; E87.8 Other disorders of electrolyte and fluid balance, not elsewhere classified; Z86.19 Personal history of other infectious and parasitic diseases

== ENCOUNTER 2018-11-30 08:51 | Inpatient (IN) | payer MEDICARE, MEDICAID ==
[2018-11-30 08:51] VITALS: BMI 22.1
[2018-11-30 09:39] LABS: BASO % 0.1 % (0.0-2.0); EOS % 0.1 % (0.0-4.0); HEMOGLOBIN 10.4 g/dL (12.0-18.0); LYMPH # 1.4 K/uL (1.0-4.3); LYMPH % 6.2 % (20.0-40.0); MEAN CELL VOLUME 83.6 fL (80.0-94.0); MEAN CORPUSCULAR HEMOGLOBIN 26.4 pg (27.0-31.0); MEAN CORPUSCULAR HGB CONC 31.6 g/dL (33.0-37.0); MONO % 4.3 % (0.0-10.0); NEUT # 20.9 K/uL (1.8-7.0); NEUT % 89.3 % (50.0-75.0); NRBC % 0.2 % (0.0-2.0); PLATELET COUNT 506 K/uL (130-400); RBC 3.95 Mil/uL (4.40-5.90); RED CELL DISTRIBUTION WIDTH 16.9 % (11.5-14.5); WHITE BLOOD COUNT 23.3 K/uL (4.8-10.8)
--- NOTE | 2018-11-30 09:43 | C.PDOC ---
History Of Present Illness 63 year old male presents to the ED with complaint of cough, congestion, SOB, and generalized malaise. Patient was admitted to [facility] for COPD exacerbation on 11/18/[address] Jana Garcia's service and discharged on 11/29/18. Patient has had multiple admissions for COPD exacerbation. Previous CT scan showed consolidation in the right upper lobe in the right perihilar region, possibility of neoplasm can not be excluded. Patient's previous VQ scan showed low probability of PE. Patient was positive for opiates in the urine and had a negative flu swab. Patient's legend maker is Dr. Alfaro. Patient has a PMHx of COPD , HIV, Hepatitis C, cataracts, and pancreatitis. Patient states that he is an ex- drug user and has not used in the past 15 years. Patient takes medication for his HIV. Patient uses 2L of oxygen at home. As per EMS, patient's apartment was small, cramped, and full of garbage. Patient had basins around his bed that were full of excrement. Per EMS, patient is unable to care for himself. Patient has a known lung mass and has historically refused having a bronchoscopy and biopsy. He denies fever, chills, abdominal pain, nausea, vomiting, and diarrhea. Time Seen by Provider: 11/30/18 09:00 History Per: Patient History/Exam Limitations: no limitations Onset/Duration Of Symptoms: Unknown Current Symptoms Are (Timing): Still Present Associated Symptoms: denies: Fever, Chills, Bloody Cough, Productive Cough Past Medical History Reviewed: Historical Data, Nursing Documentation, Vital Signs Vital Signs: Last Vital Signs Temp 100.8 F H 11/30/18 09:10 Pulse 136 H 11/30/18 09:10 Resp 21 11/30/18 09:10 BP 104/61 11/30/18 09:10 Pulse Ox 94 L 11/30/18 09:10 - Medical History PMH: Anemia (blood transfusion), Anxiety, Arthritis (KNEES), Back Problems, Bronchitis, CHF, COPD, Diabetes (w/ Neuropathy), Emphysema, Hepatitis (C), HIV, HTN, Hyperlipidemia, Pancreatitis, Pneumonia (OCT 2018), Sleep Apnea (occasional uses bipap) Denies: Asthma (denies), Deep Vein Thrombosis, Hypercholesterolemia, Chronic Kidney Disease, Seizures, Sexually Transmitted Disease Comment Only: Fractures (FACIAL FRACTURE WITH PLATE,HAD JAW SX TOO) Surgical History: Denies: Pacemaker - [facility] Procedures ASSISTANCE WITH RESPIRATORY VENTILATION, 24-96 HRS, CPAP (01/02/17) CENTRAL VENOUS CATHETER PLACEMENT WITH GUIDANCE (10/28/14) EXCISION OF STOMACH, ENDO, DIAGN (11/13/18) INFLUENZA VACCINATION (09/05/14) INSERTION OF INFUSION DEV INTO L SUBCLAV VEIN, PERC APPROACH (09/08/18) INSERTION OF INFUSION DEV INTO SUP VENA CAVA, PERC APPROACH (04/08/18) INTRODUCE OF OTH ANTI-INFECT INTO PERIPH VEIN, PERC APPROACH (09/08/18) INTRODUCE OF OTH THERAP SUBST INTO RESP TRACT, VIA OPENING (08/28/18) INTRODUCTION OF SERUM/TOX/VACCINE INTO MUSCLE, PERC APPROACH (07/17/18) SPINAL TAP (02/05/15) TRANSFUSE NONAUT RED BLOOD CELLS IN PERIPH VEIN, PERC (08/22/18) ULTRASONOGRAPHY OF LEFT UPPER EXTREMITY VEINS, GUIDANCE (09/08/18) VACCINATION NEC (09/21/14) Family History: States: Unknown Family Hx - Social History Hx Tobacco Use: Yes Hx Alcohol Use: No Hx Substance Use: No - Immunization History Hx Tetanus Toxoid Vaccination: No Hx Influenza Vaccination: Yes (2016) Hx Pneumococcal Vaccination: Yes (10/2017) Review Of Systems Constitutional: Positive for: Malaise (generalized). Negative for: Fever, Chills, Weakness ENT: Positive for: Nose Congestion Respiratory: Positive for: Cough, Shortness of Breath Gastrointestinal: Negative for: Nausea, Vomiting, Abdominal Pain, Diarrhea Neurological: Negative for: Weakness, Numbness, Dizziness Physical Exam - Physical Exam Appears: Non-toxic, No Acute Distress Skin: Normal Color, Warm, Dry Head: Atraumatic, Normacephalic Eye(s): bilateral: PERRL, EOMI Oral Mucosa: Moist Teeth: No Normal Dentition (poor dentition), Other Neck: Normal ROM, Supple Chest: Symmetrical, No Deformity, No Tenderness Cardiovascular: Rhythm Regular, No Murmur, Other (Tachycardic) Respiratory: No Accessory Muscle Use, No Rales, No Rhonchi, Wheezing (bilaterally) Gastrointestinal/Abdominal: Soft, No Tenderness Extremity: No Other (pitting edema) Neurological/Psych: Oriented x3, Normal Speech, Normal Cognition ED Course And Treatment - Laboratory Results Result Diagrams: 11/30/18 09:35 11/30/18 09:35 ECG: Interpreted By Me, Viewed By Me ECG Rhythm: Sinus Tachycardia Rate From EC O2 Sat by Pulse Oximetry: 94 - Other Rad CXR X-Ray: Interpreted by Me, Viewed By Me Interpretation: IMPRESSION: Right hilar prominence. Interstitial infiltrate or edema. More focal rounded opacities possibly multifocal consolidation however neoplasm cannot be excluded. Small bilateral pleural effusions. Recommend follow-up to complete resolution. Medical Decision Making Medical Decision Making: Impression: 63 year old male presents to ED with complaint of cough, congestion ,SOB, and malaise. Plan: VBG, EKG, and CXR. Labs ordered with troponin, CBC, flu a/b, and UA. Patient with severe sepsis, febrile, tachycardic, elevated WBC count and a lactate of 2.6. Discussed with Dr. Thompson, recommends Vanco and Cefepin Patient is a vasculopath, is refusing an EJ and a femoral line. States he had a PICC line during last admission. Dr. Jana Garcia agrees to admit patient to her service. Disposition Discussed With : Jana Garcia Counseled Patient/Family Regarding: Studies Performed - Disposition Disposition: HOSPITALIZED Disposition Time: 11:00 Condition: GUARDED - Clinical Impression Clinical Impression: Sepsis, Dyspnea, COPD exacerbation - Scribe Statement The provider has reviewed the documentation as recorded by the Scribe (Gertrudis Razo) All medical record entries made by the Scribe were at my direction and personally dictated by me. I have reviewed the chart and agree that the record accurately reflects my personal performance of the history, physical exam, medical decision making, and the department course for this patient. I have also personally directed, reviewed, and agree with the discharge instructions and disposition. Decision To Admit - Pt Status Changed To: Hospital Disposition Of: Inpatient - Admit Certification Admit to Inpatient:: After my assessment, the patient will require hospitalization for at least two midnights. This is because of the severity of symptoms shown, intensity of services needed, and/or the medical risk in this patient being treated as an outpatient. - InPatient: Physician Admission Certification: I certify that this patient requires 2 or more midnights of care for the following reason:: sepsis, sob - . Bed Request Type: Telemetry Admitting Physician: Jana Garcia Patient Diagnosis: Sepsis, Dyspnea, COPD exacerbation
[2018-11-30 09:47] LABS: VENOUS BLOOD GAS BASE EXCESS 7.5 mmol/L (0.0-2.0); VENOUS BLOOD GAS PCO2 55 mmHg (40-60); VENOUS BLOOD GAS PO2 25 mm/Hg (30-55)
[2018-11-30 09:48] LABS: INR 1.7; PROTHROMBIN TIME 18.6 SECONDS (9.7-12.2)
[2018-11-30] MEDS ORDERED: Vancomycin 1 GM 1 GM/250 ML BAG IVPB STA (09:53)
[2018-11-30] MEDS ORDERED: Cefepime 1 GM in Sodium Chloride 0.9% 50 ML IVPB ONE (09:53)
[2018-11-30 10:07] LABS: ALB/GLOB RATIO 0.9 (1.0-2.1); ALBUMIN 3.5 g/dL (3.5-5.0); ALT/SGPT < 6 U/L (21-72); AST/SGOT 22 U/L (17-59); BLOOD UREA NITROGEN 25 mg/dL (9-20); CALCIUM 8.9 mg/dl (8.6-10.4); GFR NON-AFRICAN AMERICAN > 60
[2018-11-30] MEDS ORDERED: Sodium Chloride 0.9% 500 ML IV ONE (10:08)
[2018-11-30 10:19] LABS: ANISOCYTOSIS SLIGHT; BANDS 1 % (0-2); LYMPHOCYTE 6 % (20-40); MONOCYTE 5 % (0-10); NEUTROPHIL 88 % (50-75); PLATELET ESTIMATE DECREASED (NORMAL); TOTAL CELLS COUNTED 100
[2018-11-30 10:20] LABS: HYPOCHROMIC SLIGHT; LARGE PLATELETS PRESENT
--- NOTE | 2018-11-30 10:25 | RAD ---
HISTORY: Sepsis Patient COMPARISON: Chest x-ray performed 11/21/18, CT chest without contrast performed 11/27/18 TECHNIQUE: Chest, one view. FINDINGS: LUNGS: Right hilar prominence. Interstitial infiltrate or edema. More focal rounded opacities possibly multifocal consolidation however neoplasm cannot be excluded. Small bilateral pleural effusions. No definite pneumothorax. Please note that chest x-ray has limited sensitivity for the detection of pulmonary masses. CARDIOVASCULAR: Cardiomegaly. Atherosclerotic calcifications of the aorta. OSSEOUS STRUCTURES: Osseous demineralization. Degenerative changes. VISUALIZED UPPER ABDOMEN: Unremarkable. OTHER FINDINGS: None. IMPRESSION: Right hilar prominence. Interstitial infiltrate or edema. More focal rounded opacities possibly multifocal consolidation however neoplasm cannot be excluded. Small bilateral pleural effusions. Recommend follow-up to complete resolution.
[2018-11-30] MEDS ORDERED: Vancomycin 1 GM 1 GM/250 ML BAG IVPB ONE (10:26)
[2018-11-30 11:12] LABS: B-TYPE NATRIURETIC PEPTIDE 238 pg/mL (0-900)
[2018-11-30 12:16] LABS: SQUAMOUS EPITHIAL 1 /hpf (0-5); URINE BILIRUBIN NEGATIVE (NEGATIVE); URINE BLOOD NEGATIVE (NEGATIVE); URINE CLARITY Hazy (Clear); URINE COLOR Yellow (YELLOW); URINE GLUCOSE (UA) 1+ mg/dL (Normal); URINE LEUKOCYTE ESTERASE NEG Leu/uL (Negative); URINE PROTEIN NEGATIVE (NEGATIVE); URINE UROBILINOGEN NORMAL mg/dL (0.2-1.0)
[2018-11-30] MEDS: Albuterol-Ipratrop 3 mg / 0.5 (3 ml) UD INH SCH ×2 (16:40→19:13)
[2018-11-30] MEDS: Insulin Detemir 100 units/ml Vial (Levemir) SC SCH (17:06)
[2018-11-30] MEDS: MethylPREDNISolone 40 mg Vial IVP SCH ×2 (17:06→21:20)
[2018-11-30] MEDS: (Novolin R) Insulin Human Regular 100 units/ml vial SC SCH ×2 (17:07→21:42)
--- NOTE | 2018-11-30 18:23 | CP.PCM.HP ---
History of Present Illness - History of Present Illness History of Present Illness: pt came in to ed and admited feeling weeke sob coughing has fever Present on Admission - Present on Admission Any Indicators Present on Admission: No Review of Systems - Review of Systems Systems not reviewed;Unavailable: Acuity of Condition - Constitutional Constitutional: Fatigue, Fever - EENT Eyes: As Per HPI Nose/Mouth/Throat: As Per HPI - Cardiovascular Cardiovascular: Dyspnea - Respiratory Respiratory: Cough, Dyspnea, Wheezing, Chest Congestion - Gastrointestinal Gastrointestinal: As Per HPI - Genitourinary Genitourinary: As Per HPI - Reproductive: Male Reproductive:Male: As Per HPI - Musculoskeletal Musculoskeletal: As Per HPI - Integumentary Integumentary: As Per HPI - Neurological Neurological: As Per HPI, Weakness - Psychiatric Psychiatric: Anxiety - Endocrine Endocrine: Cold Intolorance - Hematologic/Lymphatic Additional comments: aneamia Past Patient History - Infectious Disease Hx of Infectious Diseases: None - Tetanus Immunizations Tetanus Immunization: Unknown - Past Medical History & Family History Past Medical History?: Yes - Past Social History Smoking Status: Former Smoker - CARDIAC Hx Congestive Heart Failure: Yes Hx Hypercholesterolemia: No Hx Hypertension: Yes Hx Pacemaker: No - PULMONARY Hx Asthma: No (denies) Hx Bronchitis: Yes Hx Chronic Obstructive Pulmonary Disease (COPD): Yes Hx Emphysema: Yes Hx Pneumonia: Yes (OCT 2018) Hx Sleep Apnea: Yes (occasional uses bipap) - NEUROLOGICAL Hx Seizures: No - HEENT Hx HEENT Problems: Yes Hx Cataracts: Yes (right eye sx) - RENAL Hx Chronic Kidney Disease: No - ENDOCRINE/METABOLIC Hx Endocrine Disorders: Yes Hx Diabetes Mellitus Type 2: Yes - HEMATOLOGICAL/ONCOLOGICAL Hx Anemia: Yes (blood transfusion) Hx Human Immunodeficiency Virus (HIV): Yes - INTEGUMENTARY Hx Dermatological Problems: No - MUSCULOSKELETAL/RHEUMATOLOGICAL Hx Arthritis: Yes (KNEES) Hx Falls: No Hx Fractures: (FACIAL FRACTURE WITH PLATE,HAD JAW SX TOO) - GASTROINTESTINAL Hx Pancreatitis: Yes - GENITOURINARY/GYNECOLOGICAL Hx Sexually Transmitted Disorders: No - PSYCHIATRIC Hx Anxiety: Yes Hx Substance Use: No - SURGICAL HISTORY Hx Surgeries: Yes Hx Eye Surgery: Yes - ANESTHESIA Hx Anesthesia: Yes Hx Anesthesia Reactions: No Hx Malignant Hyperthermia: No Meds Allergies/Adverse Reactions: Allergies Allergy/AdvReac Type Severity Reaction Status Date / Time No Known Allergies Allergy Verified 11/30/18 09:28 Physical Exam - Constitutional Appears: In Acute Distress - Head Exam Head Exam: ATRAUMATIC - Eye Exam Eye Exam: Normal appearance Pupil Exam: PERRL - ENT Exam ENT Exam: Normal Exam - Neck Exam Neck exam: Positive for: Normal Inspection - Respiratory Exam Respiratory Exam: Decreased Breath Sounds, Rales, Rhonchi, Wheezes, Respiratory Distress - Cardiovascular Exam Cardiovascular Exam: Tachycardia - GI/Abdominal Exam GI & Abdominal Exam: Normal Bowel Sounds - Exam Exam: NORMAL INSPECTION - Extremities Exam Extremities exam: Positive for: normal inspection - Back Exam Back exam: CVA tenderness (L) - Neurological Exam Neurological exam: Alert - Psychiatric Exam Psychiatric exam: Anxious, Depressed - Skin Skin Exam: Pallor Results - Vital Signs Recent Vital Signs: Last Vital Signs Temp 99.9 F H 11/30/18 15:00 Pulse 115 H 11/30/18 15:30 Resp 18 11/30/18 15:00 BP 109/64 11/30/18 15:00 Pulse Ox 97 11/30/18 15:22 - Labs Result Diagrams: 11/30/18 09:35 11/30/18 09:35 Labs: Laboratory Results - last 24 hr 11/30/18 11/30/18 11/30/18 09:17 09:35 09:35 WBC 23.3 H RBC 3.95 L Hgb 10.4 L Hct 33.0 L MCV 83.6 MCH 26.4 L MCHC 31.6 L RDW 16.9 H Plt Count 506 H MPV 8.0 Neut % (Auto) 89.3 H Lymph % (Auto) 6.2 L [place] % (Auto) 4.3 Eos % (Auto) 0.1 Baso % (Auto) 0.1 Neut # (Auto) 20.9 H Lymph # (Auto) 1.4 [place] # (Auto) 1.0 H Eos # (Auto) 0.0 Baso # (Auto) 0.0 Neutrophils % (Manual) 88 H Band Neutrophils % 1 Lymphocytes % (Manual) 6 L Monocytes % (Manual) 5 Platelet Estimate Decreased L Large Platelets Present Hypochromasia (manual) Slight Anisocytosis (manual) Slight PT 18.6 H INR 1.7 APTT 40 H pO2 VBG pH VBG pCO2 VBG HCO3 VBG Total CO2 VBG O2 Sat (Calc) VBG Base Excess VBG Potassium Glucose Lactate Sodium Potassium Chloride Carbon Dioxide Anion Gap BUN Creatinine Est GFR ( Amer) Est GFR (Non-Af Amer) POC Glucose (mg/dL) 224 H Random Glucose Lactic Acid Calcium Phosphorus Magnesium Total Bilirubin AST ALT Alkaline Phosphatase Troponin I NT-Pro-B Natriuret Pep Total Protein Albumin Globulin Albumin/Globulin Ratio Venous Blood Potassium Urine Color Urine Clarity Urine pH Ur Specific [place] Urine Protein Urine Glucose (UA) Urine Ketones Urine Blood Urine Nitrate Urine Bilirubin Urine Urobilinogen Ur Leukocyte Esterase Urine WBC (Auto) Urine RBC (Auto) Ur Squamous Epith Cells Influenza Typ A,B (EIA) 11/30/18 11/30/18 11/30/18 09:35 09:44 10:29 WBC RBC Hgb Hct MCV MCH MCHC RDW Plt Count MPV Neut % (Auto) Lymph % (Auto) [place] % (Auto) Eos % (Auto) Baso % (Auto) Neut # (Auto) Lymph # (Auto) [place] # (Auto) Eos # (Auto) Baso # (Auto) Neutrophils % (Manual) Band Neutrophils % Lymphocytes % (Manual) Monocytes % (Manual) Platelet Estimate Large Platelets Hypochromasia (manual) Anisocytosis (manual) PT INR APTT pO2 25 L VBG pH 7.40 VBG pCO2 55 VBG HCO3 29.4 VBG Total CO2 35.8 H VBG O2 Sat (Calc) 48.6 VBG Base Excess 7.5 H VBG Potassium 3.7 Glucose 204 H Lactate 2.6 H Sodium 135 138.0 Potassium 4.4 Chloride 95 L 100.0 Carbon Dioxide 31 H Anion Gap 14 BUN 25 H Creatinine 0.9 Est GFR ( Amer) > 60 Est GFR (Non-Af Amer) > 60 POC Glucose (mg/dL) Random Glucose 212 H D Lactic Acid Calcium 8.9 Phosphorus 2.5 Magnesium 2.2 Total Bilirubin 0.8 AST 22 ALT < 6 L Alkaline Phosphatase 297 H D Troponin I < 0.0120 NT-Pro-B Natriuret Pep 238 Total Protein 7.4 Albumin 3.5 D Globulin 3.9 Albumin/Globulin Ratio 0.9 L Venous Blood Potassium 3.7 Urine Color Urine Clarity Urine pH Ur Specific [place] Urine Protein Urine Glucose (UA) Urine Ketones Urine Blood Urine Nitrate Urine Bilirubin Urine Urobilinogen Ur Leukocyte Esterase Urine WBC (Auto) Urine RBC (Auto) Ur Squamous Epith Cells Influenza Typ A,B (EIA) Negative for flu a/b 11/30/18 11/30/18 11/30/18 11:32 13:17 16:28 WBC RBC Hgb Hct MCV MCH MCHC RDW Plt Count MPV Neut % (Auto) Lymph % (Auto) [place] % (Auto) Eos % (Auto) Baso % (Auto) Neut # (Auto) Lymph # (Auto) [place] # (Auto) Eos # (Auto) Baso # (Auto) Neutrophils % (Manual) Band Neutrophils % Lymphocytes % (Manual) Monocytes % (Manual) Platelet Estimate Large Platelets Hypochromasia (manual) Anisocytosis (manual) PT INR APTT pO2 VBG pH VBG pCO2 VBG HCO3 VBG Total CO2 VBG O2 Sat (Calc) VBG Base Excess VBG Potassium Glucose Lactate Sodium Potassium Chloride Carbon Dioxide Anion Gap BUN Creatinine Est GFR ( Amer) Est GFR (Non-Af Amer) POC Glucose (mg/dL) 481 H* Random Glucose Lactic Acid 1.8 Calcium Phosphorus Magnesium Total Bilirubin AST ALT Alkaline Phosphatase Troponin I NT-Pro-B Natriuret Pep Total Protein Albumin Globulin Albumin/Globulin Ratio Venous Blood Potassium Urine Color Yellow Urine Clarity Hazy Urine pH 5.0 Ur Specific [place] 1.017 Urine Protein Negative Urine Glucose (UA) 1+ H Urine Ketones Negative Urine Blood Negative Urine Nitrate Negative Urine Bilirubin Negative Urine Urobilinogen Normal Ur Leukocyte Esterase Neg Urine WBC (Auto) 5 Urine RBC (Auto) < 1 Ur Squamous Epith Cells 1 Influenza Typ A,B (EIA) Assessment & Plan - Assessment and Plan (Free Text) Assessment: ac fever lecocytosis lung infection hiv aneamia dmid generalised weekness anexiety Plan: as ordered - Date & Time Date: 11/30/18 Time: 18:26
--- NOTE | 2018-11-30 19:02 | CP.PCM.CON ---
History of Present Illness - History of Present Illness History of Present Illness: 63 year old male is admitted to with increasing shortness of breath with productive cough He has known lung mass but has refused bronchoscopy/ Bx on multiple occasions He recently signed out AMA His antiviral rx was reviewed and renewed Past medical history: HIV on HARRT (CD4: 213, Viral load undetected on 08/22/2018), COPD on 2L home oxygen, HTN, DM, untreated hepatitis C, cataracts, and chronic pancreatitis. Past surgical history: Right Cataract Surgery Family history: denies Social history: 1PPD for 51 years. Quit about 10 years ago. Used to drink EtOH but quit 40 years ago; used to use drugs but quit 14 years ago. Allergies: denies Review of Systems - Constitutional Constitutional: As Per HPI, Anorexia. absent: Fever - EENT Eyes: absent: As Per HPI, Blind Spots, Blurred Vision, Change in Vision, Decreased Night Vision, Diplopia, Discharge, Dry Eye, Exophthalmos, Floaters, Irritation, Itchy Eyes, Loss of Peripheral Vision, Pain, Photophobia, Requires Corrective Lenses, Sees Flashes, Spots in Vision, Tunnel Vision, Other Visual Disturbances, Loss of Vision, Other Ears: absent: As Per HPI, Decreased Hearing, Ear Discharge, Ear Pain, Tinnitus, Abnormal Hearing, Disequilibrium, Dizziness, Other Nose/Mouth/Throat: absent: As Per HPI, Epistaxis, Nasal Congestion, Nasal Discharge, Nasal Obstruction, Nasal Trauma, Nose Pain, Post Nasal Drip, Sinus Pain, Sinus Pressure, Bleeding Gums, Change in Voice, Dental Pain, Dry Mouth, Dysphagia, Halitosis, Hoarsness, Lip Swelling, Mouth Lesions, Mouth Pain, Odynophagia, Sore Throat, Throat Swelling, Tongue Swelling, Facial Pain, Neck Pain, Neck Mass, Other - Cardiovascular Cardiovascular: As Per HPI - Respiratory Respiratory: As Per HPI, Cough, Dyspnea. absent: Hemoptysis - Gastrointestinal Gastrointestinal: absent: As Per HPI, Abdominal Pain, Belching, Bloating, Change in Bowel Habits, Change in Stool Character, Coffee Ground Emesis, Constipation, Cramping, Diarrhea, Dyspepsia, Dysphagia, Early Satiety, Excessive Flatus, Fecal Incontinence, Heartburn, Hematemesis, Hematochezia, Loose Stools, Melena, Nausea, Odynophagia, Temesmus, Vomiting, Other - Genitourinary Genitourinary: absent: As Per HPI, Change in Urinary Stream, Difficulty Urinating, Dysuria, Flank Pain, Hematuria, Pyuria, Nocturia, Urinary Incontinence, Urinary Frequency, Urinary Hesitance, Urinary Urgency, Voiding Freq/Small Amts, Freq UTI, Hx Renal/Bladder Calculi, Hx /Renal Surgery, Bladder Distension, Other - Musculoskeletal Musculoskeletal: absent: As Per HPI, Abnormal Gait, Arthralgias, Atrophy, Back Pain, Deformity, Joint Swelling, Limited Range of Motion, Loss of Height, Muscle Cramps, Muscle Weakness, Myalgias, Neck Pain, Numbness, Radiating Pain into Limb, Stiffness, Tingling, Other - Integumentary Integumentary: absent: As Per HPI, Acne, Alopecia, Bleeding Lesions, Change in Hair, Change in Nails, Change in Pigmentation, Changing Lesions, Dry Skin, Erythema, Furuncle, Hirsutism, Lesions, New Lesions, Non-Healing Lesions, Photosensitivity, Pruritus, Rash, Skin Pain, Skin Ulcer, Sores, Striae, Swelling, Unusual Bruising, Wounds, Jaundice, Other - Neurological Neurological: absent: As Per HPI, Abnormal Gait, Abnormal Hearing, Abnormal Movements, Abnormal Speech, Behavioral Changes, Burning Sensations, Confusion, Convulsions, Disequilibrium, Dizziness, Numbness, Focal Weakness, Frequent Falls, Headaches, Lack of Coordination, Loss of Vision, Memory Loss, Paresthesias, Radicular Pain, Restless Legs, Sensory Deficit, Syncope, Tingling, Tremor, Vertigo, Weakness, Other Visual Disturbances, Other - Psychiatric Psychiatric: absent: As Per HPI, Abnormal Sleep Pattern, Anhedonia, Anxiety, Auditory Hallucinations, Behavioral Changes, Change in Appetite, Change in Libido, Confusion, Depression, Difficulty Concentrating, Hallucinations, Homicidal Ideation, Hopelessness, Irritability, Memory Loss, Mood Swings, Panic Attacks, Paranoia, Suicidal Ideation, Visual Hallucinations, Tactile Hallucinations, Other - Endocrine Endocrine: absent: As Per HPI, Change in Body Appearance, Change in Libido, Cold Intolorance, Deepening of Voice, Excessive Sweating, Fatigue, Flushing, Heat Intolorance, Increase in Ring/Shoe/Hat Size, Palpitations, Polydipsia, Polyphagia, Polyuria, Other - Hematologic/Lymphatic Hematologic: absent: As Per HPI, Easy Bleeding, Easy Bruising, Lymphadenopathy, Other Past Patient History - Infectious Disease Hx of Infectious Diseases: None - Tetanus Immunizations Tetanus Immunization: Unknown - Past Medical History & Family History Past Medical History?: Yes - Past Social History Smoking Status: Former Smoker - CARDIAC Hx Congestive Heart Failure: Yes Hx Hypercholesterolemia: No Hx Hypertension: Yes Hx Pacemaker: No - PULMONARY Hx Asthma: No (denies) Hx Bronchitis: Yes Hx Chronic Obstructive Pulmonary Disease (COPD): Yes Hx Emphysema: Yes Hx Pneumonia: Yes (OCT 2018) Hx Sleep Apnea: Yes (occasional uses bipap) - NEUROLOGICAL Hx Seizures: No - HEENT Hx HEENT Problems: Yes Hx Cataracts: Yes (right eye sx) - RENAL Hx Chronic Kidney Disease: No - ENDOCRINE/METABOLIC Hx Endocrine Disorders: Yes Hx Diabetes Mellitus Type 2: Yes - HEMATOLOGICAL/ONCOLOGICAL Hx Anemia: Yes (blood transfusion) Hx Human Immunodeficiency Virus (HIV): Yes - INTEGUMENTARY Hx Dermatological Problems: No - MUSCULOSKELETAL/RHEUMATOLOGICAL Hx Arthritis: Yes (KNEES) Hx Falls: No Hx Fractures: (FACIAL FRACTURE WITH PLATE,HAD JAW SX TOO) - GASTROINTESTINAL Hx Pancreatitis: Yes - GENITOURINARY/GYNECOLOGICAL Hx Sexually Transmitted Disorders: No - PSYCHIATRIC Hx Anxiety: Yes Hx Substance Use: No - SURGICAL HISTORY Hx Surgeries: Yes Hx Eye Surgery: Yes - ANESTHESIA Hx Anesthesia: Yes Hx Anesthesia Reactions: No Hx Malignant Hyperthermia: No Meds Allergies/Adverse Reactions: Allergies Allergy/AdvReac Type Severity Reaction Status Date / Time No Known Allergies Allergy Verified 11/30/18 09:28 - Medications Medications: Current Medications Abacavir Sulfate (Ziagen) 300 mg PO BID [facility]; Protocol Last Admin: 11/30/18 18:42 Dose: 300 mg Albuterol/Ipratropium (Duoneb 3 Mg/0.5 Mg (3 Ml) Ud) 3 ml INH RQ4 [facility] Alprazolam (Xanax) 0.25 mg PO Q8 PRN PRN Reason: Anxiety Stop: 12/07/18 14:28 Last Admin: 11/30/18 14:58 Dose: 0.25 mg Amlodipine Besylate (Norvasc) 5 mg PO DAILY [facility] Last Admin: 11/30/18 14:57 Dose: 5 mg Famotidine (Pepcid) 20 mg PO 1000 [facility] Furosemide (Lasix) 20 mg PO DAILY [facility] Last Admin: 11/30/18 14:57 Dose: 20 mg Gabapentin (Neurontin) 300 mg PO TID [facility] Last Admin: 11/30/18 17:06 Dose: 300 mg Heparin Sodium (Porcine) (Heparin) 5,000 units SC Q12 [facility] Vancomycin HCl 1 gm/ Sodium (Chloride) 250 mls @ 166.7 mls/hr IVPB Q24H [facility]; Protocol Insulin Detemir (Levemir) 20 unit SC Q12H [facility] Last Admin: 11/30/18 17:06 Dose: 20 units Insulin Human Regular (Novolin R) 0 unit SC ACHS [facility]; Protocol Last Admin: 11/30/18 17:07 Dose: 10 units Lamivudine (Epivir) 300 mg PO DAILY [facility] Methylprednisolone (Solu-Medrol) 40 mg IVP Q12 [facility] Last Admin: 11/30/18 17:06 Dose: 40 mg Montelukast Sodium (Singulair) 10 mg PO HS [facility] Raltegravir (Isentress) 400 mg PO BID [facility]; Protocol Last Admin: 11/30/18 18:43 Dose: 400 mg Physical Exam - Constitutional Appears: No Acute Distress, Cachectic, Chronically Ill - Head Exam Head Exam: ATRAUMATIC, NORMAL INSPECTION, NORMOCEPHALIC - Eye Exam Eye Exam: EOMI, Normal appearance, PERRL Pupil Exam: NORMAL ACCOMODATION, PERRL - ENT Exam ENT Exam: Mucous Membranes Moist, Normal Exam - Neck Exam Neck exam: Positive for: Normal Inspection - Respiratory Exam Respiratory Exam: Decreased Breath Sounds, Prolonged Expiratory Phase, Rhonchi - Cardiovascular Exam Cardiovascular Exam: REGULAR RHYTHM, +S1, +S2 - GI/Abdominal Exam GI & Abdominal Exam: Diminished Bowel Sounds, Distended, Soft. absent: Tenderness - Rectal Exam Rectal Exam: Deferred - Exam Exam: NORMAL INSPECTION - Extremities Exam Extremities exam: Positive for: normal inspection - Back Exam Back exam: NORMAL INSPECTION - Neurological Exam Neurological exam: Alert, CN II-XII Intact, Normal Gait, Oriented x3, Reflexes Normal - Psychiatric Exam Psychiatric exam: Normal Affect, Normal Mood - Skin Skin Exam: Dry, Intact, Normal Color, Warm Results - Vital Signs Recent Vital Signs: Last Vital Signs Temp 99.9 F H 11/30/18 15:00 Pulse 115 H 11/30/18 15:30 Resp 18 11/30/18 15:00 BP 109/64 11/30/18 15:00 Pulse Ox 97 11/30/18 15:22 - Labs Result Diagrams: 11/30/18 09:35 11/30/18 09:35 Labs: Laboratory Results - last 24 hr 11/30/18 11/30/18 11/30/18 09:17 09:35 09:35 WBC 23.3 H RBC 3.95 L Hgb 10.4 L Hct 33.0 L MCV 83.6 MCH 26.4 L MCHC 31.6 L RDW 16.9 H Plt Count 506 H MPV 8.0 Neut % (Auto) 89.3 H Lymph % (Auto) 6.2 L [place] % (Auto) 4.3 Eos % (Auto) 0.1 Baso % (Auto) 0.1 Neut # (Auto) 20.9 H Lymph # (Auto) 1.4 [place] # (Auto) 1.0 H Eos # (Auto) 0.0 Baso # (Auto) 0.0 Neutrophils % (Manual) 88 H Band Neutrophils % 1 Lymphocytes % (Manual) 6 L Monocytes % (Manual) 5 Platelet Estimate Decreased L Large Platelets Present Hypochromasia (manual) Slight Anisocytosis (manual) Slight PT 18.6 H INR 1.7 APTT 40 H pO2 VBG pH VBG pCO2 VBG HCO3 VBG Total CO2 VBG O2 Sat (Calc) VBG Base Excess VBG Potassium Glucose Lactate Sodium Potassium Chloride Carbon Dioxide Anion Gap BUN Creatinine Est GFR ( Amer) Est GFR (Non-Af Amer) POC Glucose (mg/dL) 224 H Random Glucose Lactic Acid Calcium Phosphorus Magnesium Total Bilirubin AST ALT Alkaline Phosphatase Troponin I NT-Pro-B Natriuret Pep Total Protein Albumin Globulin Albumin/Globulin Ratio Venous Blood Potassium Urine Color Urine Clarity Urine pH Ur Specific [place] Urine Protein Urine Glucose (UA) Urine Ketones Urine Blood Urine Nitrate Urine Bilirubin Urine Urobilinogen Ur Leukocyte Esterase Urine WBC (Auto) Urine RBC (Auto) Ur Squamous Epith Cells Influenza Typ A,B (EIA) 11/30/18 11/30/18 11/30/18 09:35 09:44 10:29 WBC RBC Hgb Hct MCV MCH MCHC RDW Plt Count MPV Neut % (Auto) Lymph % (Auto) [place] % (Auto) Eos % (Auto) Baso % (Auto) Neut # (Auto) Lymph # (Auto) [place] # (Auto) Eos # (Auto) Baso # (Auto) Neutrophils % (Manual) Band Neutrophils % Lymphocytes % (Manual) Monocytes % (Manual) Platelet Estimate Large Platelets Hypochromasia (manual) Anisocytosis (manual) PT INR APTT pO2 25 L VBG pH 7.40 VBG pCO2 55 VBG HCO3 29.4 VBG Total CO2 35.8 H VBG O2 Sat (Calc) 48.6 VBG Base Excess 7.5 H VBG Potassium 3.7 Glucose 204 H Lactate 2.6 H Sodium 135 138.0 Potassium 4.4 Chloride 95 L 100.0 Carbon Dioxide 31 H Anion Gap 14 BUN 25 H Creatinine 0.9 Est GFR ( Amer) > 60 Est GFR (Non-Af Amer) > 60 POC Glucose (mg/dL) Random Glucose 212 H D Lactic Acid Calcium 8.9 Phosphorus 2.5 Magnesium 2.2 Total Bilirubin 0.8 AST 22 ALT < 6 L Alkaline Phosphatase 297 H D Troponin I < 0.0120 NT-Pro-B Natriuret Pep 238 Total Protein 7.4 Albumin 3.5 D Globulin 3.9 Albumin/Globulin Ratio 0.9 L Venous Blood Potassium 3.7 Urine Color Urine Clarity Urine pH Ur Specific [place] Urine Protein Urine Glucose (UA) Urine Ketones Urine Blood Urine Nitrate Urine Bilirubin Urine Urobilinogen Ur Leukocyte Esterase Urine WBC (Auto) Urine RBC (Auto) Ur Squamous Epith Cells Influenza Typ A,B (EIA) Negative for flu a/b 11/30/18 11/30/18 11/30/18 11:32 13:17 16:28 WBC RBC Hgb Hct MCV MCH MCHC RDW Plt Count MPV Neut % (Auto) Lymph % (Auto) [place] % (Auto) Eos % (Auto) Baso % (Auto) Neut # (Auto) Lymph # (Auto) [place] # (Auto) Eos # (Auto) Baso # (Auto) Neutrophils % (Manual) Band Neutrophils % Lymphocytes % (Manual) Monocytes % (Manual) Platelet Estimate Large Platelets Hypochromasia (manual) Anisocytosis (manual) PT INR APTT pO2 VBG pH VBG pCO2 VBG HCO3 VBG Total CO2 VBG O2 Sat (Calc) VBG Base Excess VBG Potassium Glucose Lactate Sodium Potassium Chloride Carbon Dioxide Anion Gap BUN Creatinine Est GFR ( Amer) Est GFR (Non-Af Amer) POC Glucose (mg/dL) 481 H* Random Glucose Lactic Acid 1.8 Calcium Phosphorus Magnesium Total Bilirubin AST ALT Alkaline Phosphatase Troponin I NT-Pro-B Natriuret Pep Total Protein Albumin Globulin Albumin/Globulin Ratio Venous Blood Potassium Urine Color Yellow Urine Clarity Hazy Urine pH 5.0 Ur Specific [place] 1.017 Urine Protein Negative Urine Glucose (UA) 1+ H Urine Ketones Negative Urine Blood Negative Urine Nitrate Negative Urine Bilirubin Negative Urine Urobilinogen Normal Ur Leukocyte Esterase Neg Urine WBC (Auto) 5 Urine RBC (Auto) < 1 Ur Squamous Epith Cells 1 Influenza Typ A,B (EIA) Assessment & Plan (1) COPD exacerbation Status: Acute Priority: High (2) Dyspnea Status: Acute (3) Sepsis Status: Acute (4) ARF (acute renal failure) Status: Acute Priority: Medium - Assessment and Plan (Free Text) Assessment: 63 year old male is admitted to with increasing shortness of breath with productive cough He has known lung mass but has refused bronchoscopy/ Bx on multiple occasions He recently signed out AMA Past medical history: HIV on HARRT (CD4: 213, Viral load undetected on 08/22/2018), severe COPD on 2L home oxygen, HTN, DM, untreated hepatitis C, cataracts, and chronic pancreatitis. readmitted with severe sepsis/ impending resp failure Poor prognosis Start Vanco/Cefepime
[2018-11-30] MEDS: Cefepime IV 2 gm in Dextrose 2 GM/100 ML BAG IVPB SCH (21:37)
[2018-11-30] MEDS: Vancomycin 1 gm/NS 200 ml 1 GM/200 ML BAG IVPB SCH (22:47)
[2018-12-01] MEDS: Albuterol-Ipratrop 3 mg / 0.5 (3 ml) UD INH SCH ×6 (00:19→20:42)
[2018-12-01] MEDS: Cefepime IV 2 gm in Dextrose 2 GM/100 ML BAG IVPB SCH ×3 (03:31→20:00)
[2018-12-01] MEDS: Insulin Detemir 100 units/ml Vial (Levemir) SC SCH ×2 (06:43→21:27)
[2018-12-01] MEDS: MethylPREDNISolone 40 mg Vial IVP SCH ×2 (09:04→21:52)
[2018-12-01] MEDS: (Novolin R) Insulin Human Regular 100 units/ml vial SC SCH ×4 (09:05→21:27)
[2018-12-01] MEDS: Vancomycin 1 gm/NS 200 ml 1 GM/200 ML BAG IVPB SCH ×2 (09:32→22:18)
--- NOTE | 2018-12-01 11:12 | CARD ---
APPROVED REPORT Date of service: 11/30/2018 EKG Measurement Heart [id number] <Conclusion> Sinus tachycardia Possible Left atrial enlargement Borderline ECG
--- NOTE | 2018-12-01 11:58 | CP.PCM.CON ---
History of Present Illness - History of Present Illness History of Present Illness: Patient is a 63 years old male with PMHX of HIV, COPD, HTN, DM, Hepatitis C, chronic Pancreatitis who presented to the ED with worsening SOB. Patient states that he was home when he felt that the room was too hot and he felt short of b reath. He recently discharged from [facility] where he was treated for similar symptoms. Patient has a known lung mass but has repeatedly refused to have bronchoscopy done. He states that the SOB has since resolved and his breathing is much improved. He denies fevers, chills, chest pain, cough, hemoptysis. PMHX: HIV, COPD, HTN, DM, Hepatitis C, chronic Pancreatitis PSHX: R Catract surgery Family HX: Noncontributory ALL: NKDA MEDS: as per chart SOCIAL: Former 1 PPD for 51 years. Quit 10 years ago Physical Exam O2 Saturation 95% NC General: NAD Cardio: S1, S2 Resp: Wheezing Abd: Soft, Non-tender Chest X-Ray 11/30- Right Hilar Prominence. Interstitial infiltrate or edema. More focal rounded opacities possibly multifocal consolidations however neoplasm cannot be excluded. Small Bilateral effusions A/P 1) COPD Exacerbation -Continue nebulizer -Continue steroids 2) Pnuemonia -Continue ABX 3) Suspicious Lung Mass - Possible Malignancy - Discuss with patient again about bronchoscopy Past Patient History - Infectious Disease Hx of Infectious Diseases: None - Tetanus Immunizations Tetanus Immunization: Unknown - Past Medical History & Family History Past Medical History?: Yes - Past Social History Smoking Status: Former Smoker - CARDIAC Hx Congestive Heart Failure: Yes Hx Hypercholesterolemia: No Hx Hypertension: Yes Hx Pacemaker: No - PULMONARY Hx Asthma: No (denies) Hx Bronchitis: Yes Hx Chronic Obstructive Pulmonary Disease (COPD): Yes Hx Emphysema: Yes Hx Pneumonia: Yes (OCT 2018) Hx Sleep Apnea: Yes (occasional uses bipap) - NEUROLOGICAL Hx Seizures: No - HEENT Hx HEENT Problems: Yes Hx Cataracts: Yes (right eye sx) - RENAL Hx Chronic Kidney Disease: No - ENDOCRINE/METABOLIC Hx Endocrine Disorders: Yes Hx Diabetes Mellitus Type 2: Yes - HEMATOLOGICAL/ONCOLOGICAL Hx Anemia: Yes (blood transfusion) Hx Human Immunodeficiency Virus (HIV): Yes - INTEGUMENTARY Hx Dermatological Problems: No - MUSCULOSKELETAL/RHEUMATOLOGICAL Hx Arthritis: Yes (KNEES) Hx Falls: No Hx Fractures: (FACIAL FRACTURE WITH PLATE,HAD JAW SX TOO) - GASTROINTESTINAL Hx Pancreatitis: Yes - GENITOURINARY/GYNECOLOGICAL Hx Sexually Transmitted Disorders: No - PSYCHIATRIC Hx Anxiety: Yes Hx Substance Use: No - SURGICAL HISTORY Hx Surgeries: Yes Hx Eye Surgery: Yes - ANESTHESIA Hx Anesthesia: Yes Hx Anesthesia Reactions: No Hx Malignant Hyperthermia: No Meds Allergies/Adverse Reactions: Allergies Allergy/AdvReac Type Severity Reaction Status Date / Time No Known Allergies Allergy Verified 11/30/18 09:28 - Medications Medications: Current Medications Abacavir Sulfate (Ziagen) 300 mg PO BID [facility]; Protocol Last Admin: 12/01/18 09:16 Dose: 300 mg Albuterol/Ipratropium (Duoneb 3 Mg/0.5 Mg (3 Ml) Ud) 3 ml INH RQ4 [facility] Last Admin: 12/01/18 07:45 Dose: 3 ml Alprazolam (Xanax) 0.25 mg PO Q8 PRN PRN Reason: Anxiety Stop: 12/07/18 14:28 Last Admin: 12/01/18 09:32 Dose: 0.25 mg Amlodipine Besylate (Norvasc) 5 mg PO DAILY [facility] Last Admin: 12/01/18 09:15 Dose: 5 mg Famotidine (Pepcid) 20 mg PO 1000 [facility] Last Admin: 12/01/18 09:32 Dose: 20 mg Furosemide (Lasix) 20 mg PO DAILY [facility] Last Admin: 12/01/18 09:15 Dose: 20 mg Gabapentin (Neurontin) 300 mg PO TID [facility] Last Admin: 12/01/18 09:15 Dose: 300 mg Heparin Sodium (Porcine) (Heparin) 5,000 units SC Q12 [facility] Last Admin: 12/01/18 09:32 Dose: 5,000 units Vancomycin/Sodium Chloride (Vancomycin 1 Gm/Ns 200 Ml) 1 gm in 200 mls @ 133 mls/hr IVPB Q12H [facility]; Protocol Stop: 12/05/18 22:31 Last Admin: 12/01/18 09:32 Dose: 133 mls/hr Cefepime HCl (Maxipime Iv 2 Gm Premix) 2 gm in 100 mls @ 200 mls/hr IVPB Q8H [facility]; Protocol Stop: 12/05/18 20:01 Last Admin: 12/01/18 11:31 Dose: 200 mls/hr Insulin Detemir (Levemir) 25 unit SC Q12 [facility] Insulin Human Regular (Novolin R) 0 unit SC ACHS [facility]; Protocol Last Admin: 12/01/18 11:30 Dose: 15 units Lamivudine (Epivir) 300 mg PO DAILY [facility] Last Admin: 12/01/18 09:16 Dose: 300 mg Methylprednisolone (Solu-Medrol) 40 mg IVP Q12 [facility] Last Admin: 12/01/18 09:04 Dose: 40 mg Montelukast Sodium (Singulair) 10 mg PO HS [facility] Last Admin: 11/30/18 21:13 Dose: 10 mg Raltegravir (Isentress) 400 mg PO BID [facility]; Protocol Last Admin: 12/01/18 09:17 Dose: 400 mg Results - Vital Signs Recent Vital Signs: Last Vital Signs Temp 97.6 F 12/01/18 08:08 Pulse 86 12/01/18 08:08 Resp 20 12/01/18 08:08 BP 103/60 12/01/18 09:15 Pulse Ox 95 12/01/18 08:08 - Labs Result Diagrams: 11/30/18 09:35 11/30/18 09:35 Labs: Laboratory Results - last 24 hr 11/30/18 11/30/18 11/30/18 11:32 13:17 16:28 POC Glucose (mg/dL) 481 H* Lactic Acid 1.8 Urine Color Yellow Urine Clarity Hazy Urine pH 5.0 Ur Specific Ira 1.017 Urine Protein Negative Urine Glucose (UA) 1+ H Urine Ketones Negative Urine Blood Negative Urine Nitrate Negative Urine Bilirubin Negative Urine Urobilinogen Normal Ur Leukocyte Esterase Neg Urine WBC (Auto) 5 Urine RBC (Auto) < 1 Ur Squamous Epith Cells 1 11/30/18 12/01/18 12/01/18 20:58 06:30 11:02 POC Glucose (mg/dL) 397 H 337 H > 500 H* Lactic Acid Urine Color Urine Clarity Urine pH Ur Specific Ira Urine Protein Urine Glucose (UA) Urine Ketones Urine Blood Urine Nitrate Urine Bilirubin Urine Urobilinogen Ur Leukocyte Esterase Urine WBC (Auto) Urine RBC (Auto) Ur Squamous Epith Cells
[2018-12-01] MEDS ORDERED: Naloxone 0.4 mg/ml Inj (Adult) IVP ONE (17:03)
[2018-12-01] MEDS ORDERED: Naloxone 0.4 mg/ml Inj (Adult) ONE (17:08)
--- NOTE | 2018-12-01 17:23 | PCM.FALL ---
Post Fall Progress Note - Post Fall Fall Date: 12/01/18 Fall Time: 16:54 Description of Fall: CP attempted to open bathroom door and found patient lying on the ground. He was holding his pouch that is designated for diabetes meds. He was able to get up back into bed with assistance. Patient was very lethargic. He denied pain. Patient with pinpoint pupils and unable to state what happened. He has a history of drug abuse. Blood glucose >400. Patient given 1 dose of IV Narcan and immediately became awake, alert, and oriented. He denies taking any substance. Will order CT head. Will place patient on Avasys and fall precautions. - Post Fall Exam Vital Sign: Temp Pulse Resp BP Pulse Ox 97.7 F 100 H 20 118/72 99 12/01/18 16:00 12/01/18 16:00 12/01/18 16:00 12/01/18 16:00 12/01/18 16:00 Skull Exam: Negative for: Scalp wound, Scalp hematoma Eye Exam: Positive for: Pupils equal (pinpoint) Ear Exam: Negative for: Discharge, Bleeding Nose Exam: Negative for: Discharge, Bleeding Skin Exam: Negative for: Lacerations Mouth Exam: Negative for: Tongue bitten, Teeth dislodge Neck Exam: Negative for: Tenderness Spinal Exam: Negative for: Tenderness Chest Exam: Negative for: Difficulty breathing Abdomen Exam: Negative for: Tenderness Arm Exam: Negative for: Deformity, Alteration in range of movement Leg Exam: Negative for: Deformity, Alteration in range of movement Other pertinent findings: lethargic Impression/Plan: Patient is a 63 yo male admitted for SOB. According to medical records, he has a history of COPD, T2DM, HIV, and drug abuse. He was admitted 3 times this month and has a history of signing out AMA. Plan: - Stat Narcan--> patient much more responsive - Stat CT head - Stat UDS - Blood glucose >400 - Fall precautions - Neuro checks Q4H - Have security check patient's room - Place on Avasys - Called attending, Dr. Garcia's cell phone--> straight to voicemail, mailbox full (unable to leave message)
[2018-12-01] MEDS: guaiFENesin 100 mg/5 ml Syrup UD PO PRN (18:12)
--- NOTE | 2018-12-01 18:22 | CT ---
Date of service: 12/01/2018 PROCEDURE: CT HEAD WITHOUT CONTRAST. HISTORY: s/p fall, drowsy COMPARISON: 07/04/2015 TECHNIQUE: Axial computed tomography images were obtained through the head/brain without intravenous contrast. Radiation dose: Total exam DLP = 1113.78 mGy-cm. This CT exam was performed using one or more of the following dose reduction techniques: Automated exposure control, adjustment of the mA and/or kV according to patient size, and/or use of iterative reconstruction technique. FINDINGS: HEMORRHAGE: No intracranial hemorrhage. BRAIN: No mass effect or edema. Mild diffuse atrophy. Mild periventricular white matter lucency consistent with chronic microvascular ischemic change. No evidence of acute infarct. VENTRICLES: Unremarkable. No hydrocephalus. CALVARIUM: Unremarkable. PARANASAL SINUSES: Unremarkable as visualized. No significant inflammatory changes. MASTOID AIR CELLS: Unremarkable as visualized. No inflammatory changes. OTHER FINDINGS: None. IMPRESSION: No acute intracranial hemorrhage. Mild age-appropriate atrophy and chronic white matter ischemic change. Otherwise unremarkable.
--- NOTE | 2018-12-01 19:43 | CP.PCM.PN ---
Subjective - Date & Time of Evaluation Date of Evaluation: 12/01/18 Time of Evaluation: 09:00 - Subjective Subjective: less cough less sob no fever Objective - Vital Signs/Intake and Output Vital Signs (last 24 hours): Temp Pulse Resp BP Pulse Ox 97.7 F 100 H 20 118/72 99 12/01/18 16:00 12/01/18 16:00 12/01/18 16:00 12/01/18 16:00 12/01/18 16:00 Intake and Output: 12/01/18 12/02/18 18:59 06:59 Intake Total 780 Output Total 600 Balance 180 - Medications Medications: Current Medications Abacavir Sulfate (Ziagen) 300 mg PO BID [facility]; Protocol Last Admin: 12/01/18 18:11 Dose: 300 mg Albuterol/Ipratropium (Duoneb 3 Mg/0.5 Mg (3 Ml) Ud) 3 ml INH RQ4 [facility] Last Admin: 12/01/18 16:21 Dose: Not Given Alprazolam (Xanax) 0.25 mg PO Q8 PRN PRN Reason: Anxiety Stop: 12/07/18 14:28 Last Admin: 12/01/18 18:12 Dose: 0.25 mg Amlodipine Besylate (Norvasc) 5 mg PO DAILY [facility] Last Admin: 12/01/18 09:15 Dose: 5 mg Famotidine (Pepcid) 20 mg PO 1000 [facility] Last Admin: 12/01/18 09:32 Dose: 20 mg Furosemide (Lasix) 20 mg PO DAILY [facility] Last Admin: 12/01/18 09:15 Dose: 20 mg Gabapentin (Neurontin) 300 mg PO TID [facility] Last Admin: 12/01/18 18:11 Dose: 300 mg Guaifenesin (Robitussin) 100 mg PO Q4H PRN PRN Reason: Cough Last Admin: 12/01/18 18:12 Dose: 100 mg Heparin Sodium (Porcine) (Heparin) 5,000 units SC Q12 [facility] Last Admin: 12/01/18 09:32 Dose: 5,000 units Vancomycin/Sodium Chloride (Vancomycin 1 Gm/Ns 200 Ml) 1 gm in 200 mls @ 133 mls/hr IVPB Q12H [facility]; Protocol Stop: 12/05/18 22:31 Last Admin: 12/01/18 09:32 Dose: 133 mls/hr Cefepime HCl (Maxipime Iv 2 Gm Premix) 2 gm in 100 mls @ 200 mls/hr IVPB Q8H [facility]; Protocol Stop: 12/05/18 20:01 Last Admin: 12/01/18 11:31 Dose: 200 mls/hr Insulin Detemir (Levemir) 25 unit SC Q12 [facility] Insulin Human Regular (Novolin R) 0 unit SC ACHS [facility]; Protocol Last Admin: 12/01/18 17:13 Dose: 10 units Lamivudine (Epivir) 300 mg PO DAILY [facility] Last Admin: 12/01/18 09:16 Dose: 300 mg Methylprednisolone (Solu-Medrol) 40 mg IVP Q12 [facility] Last Admin: 12/01/18 09:04 Dose: 40 mg Montelukast Sodium (Singulair) 10 mg PO HS [facility] Last Admin: 11/30/18 21:13 Dose: 10 mg Raltegravir (Isentress) 400 mg PO BID [facility]; Protocol Last Admin: 12/01/18 18:11 Dose: 400 mg - Labs Labs: 11/30/18 09:35 11/30/18 09:35 PT 18.6 SECONDS (9.7-12.2) H 11/30/18 09:35 INR 1.7 11/30/18 09:35 APTT 40 SECONDS (21-34) H 11/30/18 09:35 - Constitutional Appears: No Acute Distress, Cachectic, Chronically Ill - Head Exam Head Exam: NORMOCEPHALIC - Eye Exam Eye Exam: absent: Scleral icterus - ENT Exam ENT Exam: Mucous Membranes Dry - Neck Exam Neck Exam: absent: Lymphadenopathy - Respiratory Exam Respiratory Exam: Decreased Breath Sounds, Prolonged Expiratory Phase, Rhonchi - Cardiovascular Exam Cardiovascular Exam: REGULAR RHYTHM, +S1, +S2 - GI/Abdominal Exam GI & Abdominal Exam: Distended, Soft - Rectal Exam Rectal Exam: Deferred - Exam Exam: NORMAL INSPECTION - Extremities Exam Extremities Exam: absent: Pedal Edema - Back Exam Back Exam: absent: CVA tenderness (L), CVA tenderness (R) - Neurological Exam Neurological Exam: Alert, CN II-XII Intact, Oriented x3 Neuro motor strength exam: Left Upper Extremity: 5 - Psychiatric Exam Psychiatric exam: Depressed - Skin Skin Exam: Dry Assessment and Plan (1) COPD exacerbation Status: Acute (2) Dyspnea Status: Acute (3) Sepsis Status: Acute (4) ARF (acute renal failure) Status: Acute (5) HIV (human immunodeficiency virus infection) Status: Acute - Assessment and Plan (Free Text) Assessment: severe exac COPD post obstructive pneumonia lung mass need Bx await cultures cont HAART rx
[2018-12-02] MEDS: Albuterol-Ipratrop 3 mg / 0.5 (3 ml) UD INH SCH ×6 (00:19→20:58)
[2018-12-02] MEDS: Cefepime IV 2 gm in Dextrose 2 GM/100 ML BAG IVPB SCH ×3 (03:16→19:27)
[2018-12-02] MEDS: guaiFENesin 100 mg/5 ml Syrup UD PO PRN ×2 (04:25→13:15)
[2018-12-02 06:12] LABS: BARBITURATES, UR NEGATIVE (NEGATIVE); PHENCYCLIDINE, UR NEGATIVE (NEGATIVE)
[2018-12-02 06:15] LABS: BENZODIAZEPINES, UR POSITIVE (NEGATIVE); OPIATES, UR POSITIVE (NEGATIVE)
[2018-12-02 08:02] LABS: BASO % 0.1 % (0.0-2.0); HEMOGLOBIN 8.8 g/dL (12.0-18.0); LYMPH # 0.2 K/uL (1.0-4.3); LYMPH % 1.4 % (20.0-40.0); MEAN CORPUSCULAR HEMOGLOBIN 26.8 pg (27.0-31.0); MEAN CORPUSCULAR HGB CONC 31.9 g/dL (33.0-37.0); MEAN PLATELET VOLUME 7.9 fL (7.2-11.7); MONO # 0.4 K/uL (0.0-0.8); MONO % 2.8 % (0.0-10.0); NEUT # 14.9 K/uL (1.8-7.0); NEUT % 95.7 % (50.0-75.0); NRBC % 0.1 % (0.0-2.0); RBC 3.31 Mil/uL (4.40-5.90); RED CELL DISTRIBUTION WIDTH 16.9 % (11.5-14.5); WHITE BLOOD COUNT 15.6 K/uL (4.8-10.8)
[2018-12-02 08:07] LABS: PLATELET COUNT 372 K/uL (130-400)
[2018-12-02] MEDS: (Novolin R) Insulin Human Regular 100 units/ml vial SC SCH ×4 (08:26→21:22)
[2018-12-02 08:28] LABS: ALB/GLOB RATIO 0.8 (1.0-2.1); ALBUMIN 2.7 g/dL (3.5-5.0); ALT/SGPT 19 U/L (21-72); AST/SGOT 16 U/L (17-59); BLOOD UREA NITROGEN 22 mg/dL (9-20); CALCIUM 8.7 mg/dl (8.6-10.4); GFR NON-AFRICAN AMERICAN > 60
[2018-12-02] MEDS ORDERED: Ketamine 50 mg/ml Inj (10 ml) ONE (08:52)
[2018-12-02] MEDS ORDERED: Lidocaine 4% (Laryng-O-Jet) Kit MM ONE (08:57)
[2018-12-02] MEDS ORDERED: Sodium Chloride 0.9% 0 ML IV ONE (08:57)
[2018-12-02] MEDS ORDERED: EPINEPHrine 1 mg/ml (1:1000) Inj ONE (08:57)
[2018-12-02] MEDS ORDERED: LIDOCAINE 2% PF (2ML) ONE (08:58)
[2018-12-02] MEDS ORDERED: Midazolam 2 MG/2 ML VIAL ONE (09:10)
[2018-12-02] MEDS ORDERED: Etomidate 20 mg/10ml Inj IV ONE (09:21)
[2018-12-02] MEDS ORDERED: (Novolin R) Insulin Human Regular 100 units/ml vial SC ONE (10:00)
--- NOTE | 2018-12-02 10:24 | CP.PCM.PN ---
Subjective - Date & Time of Evaluation Date of Evaluation: 12/02/18 Time of Evaluation: 09:00 - Subjective Subjective: Patient seen and examined Complaining of cough and weakness Status post bronchoscopy/biopsy/brushing and bronchoalveolar lavage right upper lobe Afebrile Objective - Vital Signs/Intake and Output Vital Signs (last 24 hours): Temp Pulse Resp BP Pulse Ox 97.9 F 86 20 99/62 L 100 12/02/18 07:00 12/02/18 07:00 12/02/18 07:00 12/02/18 07:00 12/02/18 07:00 Intake and Output: 12/02/18 12/02/18 06:59 18:59 Intake Total 0 Output Total 400 Balance -400 0 - Medications Medications: Current Medications Abacavir Sulfate (Ziagen) 300 mg PO BID [facility]; Protocol Last Admin: 12/01/18 18:11 Dose: 300 mg Albuterol/Ipratropium (Duoneb 3 Mg/0.5 Mg (3 Ml) Ud) 3 ml INH RQ4 [facility] Last Admin: 12/02/18 08:07 Dose: Not Given Alprazolam (Xanax) 0.25 mg PO Q8 PRN PRN Reason: Anxiety Stop: 12/07/18 14:28 Last Admin: 12/01/18 18:12 Dose: 0.25 mg Amlodipine Besylate (Norvasc) 5 mg PO DAILY [facility] Last Admin: 12/01/18 09:15 Dose: 5 mg Famotidine (Pepcid) 20 mg PO 1000 [facility] Last Admin: 12/01/18 09:32 Dose: 20 mg Furosemide (Lasix) 20 mg PO DAILY [facility] Last Admin: 12/01/18 09:15 Dose: 20 mg Gabapentin (Neurontin) 300 mg PO TID [facility] Last Admin: 12/01/18 18:11 Dose: 300 mg Guaifenesin (Robitussin) 100 mg PO Q4H PRN PRN Reason: Cough Last Admin: 12/02/18 04:25 Dose: 100 mg Heparin Sodium (Porcine) (Heparin) 5,000 units SC Q12 [facility] Last Admin: 12/01/18 21:51 Dose: Not Given Vancomycin/Sodium Chloride (Vancomycin 1 Gm/Ns 200 Ml) 1 gm in 200 mls @ 133 mls/hr IVPB Q12H [facility]; Protocol Stop: 12/05/18 22:31 Last Admin: 12/01/18 22:18 Dose: 133 mls/hr Cefepime HCl (Maxipime Iv 2 Gm Premix) 2 gm in 100 mls @ 200 mls/hr IVPB Q8H [facility]; Protocol Stop: 12/05/18 20:01 Last Admin: 12/02/18 03:16 Dose: 200 mls/hr Insulin Detemir (Levemir) 25 unit SC Q12 [facility] Last Admin: 12/01/18 21:27 Dose: 25 units Insulin Human Regular (Novolin R) 0 unit SC ACHS [facility]; Protocol Last Admin: 12/02/18 08:26 Dose: Not Given Lamivudine (Epivir) 300 mg PO DAILY [facility] Last Admin: 12/01/18 09:16 Dose: 300 mg Methylprednisolone (Solu-Medrol) 40 mg IVP Q12 [facility] Last Admin: 12/01/18 21:52 Dose: 40 mg Montelukast Sodium (Singulair) 10 mg PO HS [facility] Last Admin: 12/01/18 21:52 Dose: 10 mg Raltegravir (Isentress) 400 mg PO BID [facility]; Protocol Last Admin: 12/01/18 18:11 Dose: 400 mg - Labs Labs: 12/02/18 07:50 12/02/18 07:50 PT 18.6 SECONDS (9.7-12.2) H 11/30/18 09:35 INR 1.7 11/30/18 09:35 APTT 40 SECONDS (21-34) H 11/30/18 09:35 - Head Exam Head Exam: ATRAUMATIC, NORMOCEPHALIC - ENT Exam ENT Exam: Mucous Membranes Moist - Neck Exam Neck Exam: Normal Inspection - Respiratory Exam Respiratory Exam: Decreased Breath Sounds - Cardiovascular Exam Cardiovascular Exam: REGULAR RHYTHM - GI/Abdominal Exam GI & Abdominal Exam: Soft, Normal Bowel Sounds Assessment and Plan (1) COPD exacerbation Assessment & Plan: Continue nebulizer treatment Continue antibiotics Status: Acute (2) HIV (human immunodeficiency virus infection) Status: Acute (3) Lung mass Assessment & Plan: Status post bronchoscopy and biopsy Follow-up pathology report Status: Acute
[2018-12-02] MEDS: MethylPREDNISolone 40 mg Vial IVP SCH ×2 (10:30→21:00)
[2018-12-02] MEDS: Insulin Detemir 100 units/ml Vial (Levemir) SC SCH ×2 (10:30→21:01)
--- NOTE | 2018-12-02 10:33 | RAD ---
Date of service: 12/02/2018 HISTORY: R/O PTX S/P BRONCH COMPARISON: Comparison is made with 11/30/2018 TECHNIQUE: 1 view obtained. FINDINGS: LUNGS: Interval appearance of heterogeneous opacity at the right upper lobe since the prior study may represent atelectasis versus less likely pneumonia. Otherwise no significant interval changes in the lungs. PLEURA: Small right pleural effusion is again noted. No evidence of significant pneumothorax. CARDIOVASCULAR: No aortic atherosclerotic calcification present. Normal cardiac size. No pulmonary vascular congestion. OSSEOUS STRUCTURES: No significant abnormalities. VISUALIZED UPPER ABDOMEN: Normal. OTHER FINDINGS: None. IMPRESSION: No evidence of significant pneumothorax. Interval appearance of hazy opacity at the right upper lobe may represent atelectasis or pneumonia.
[2018-12-02 10:38] LABS: BANDS 1 % (0-2); LYMPHOCYTE 2 % (20-40); MONOCYTE 2 % (0-10); NEUTROPHIL 95 % (50-75); TOTAL CELLS COUNTED 100
[2018-12-02 10:39] LABS: ANISOCYTOSIS SLIGHT; HYPOCHROMIC SLIGHT; OVALOCYTES SLIGHT; POIKILOCYTOSIS SLIGHT
[2018-12-02 10:41] LABS: SPHEROCYTES SLIGHT
[2018-12-02 10:48] LABS: PLATELET ESTIMATE NORMAL (NORMAL)
--- NOTE | 2018-12-02 11:23 | CP.PCM.PN ---
Subjective - Date & Time of Evaluation Date of Evaluation: 12/02/18 Time of Evaluation: 11:21 - Subjective Subjective: pt had bronchoscopy today wbc hi aneamia Objective - Vital Signs/Intake and Output Vital Signs (last 24 hours): Temp Pulse Resp BP Pulse Ox 97.6 F 101 H 16 127/70 100 12/02/18 10:10 12/02/18 10:10 12/02/18 10:10 12/02/18 10:10 12/02/18 10:10 Intake and Output: 12/02/18 12/02/18 06:59 18:59 Intake Total 1050 Output Total 400 Balance -400 1050 - Medications Medications: Current Medications Abacavir Sulfate (Ziagen) 300 mg PO BID [facility]; Protocol Last Admin: 12/01/18 18:11 Dose: 300 mg Albuterol/Ipratropium (Duoneb 3 Mg/0.5 Mg (3 Ml) Ud) 3 ml INH RQ4 [facility] Last Admin: 12/02/18 08:07 Dose: Not Given Alprazolam (Xanax) 0.25 mg PO Q8 PRN PRN Reason: Anxiety Stop: 12/07/18 14:28 Last Admin: 12/01/18 18:12 Dose: 0.25 mg Amlodipine Besylate (Norvasc) 5 mg PO DAILY [facility] Last Admin: 12/01/18 09:15 Dose: 5 mg Famotidine (Pepcid) 20 mg PO 1000 [facility] Last Admin: 12/01/18 09:32 Dose: 20 mg Furosemide (Lasix) 20 mg PO DAILY [facility] Last Admin: 12/01/18 09:15 Dose: 20 mg Gabapentin (Neurontin) 300 mg PO TID [facility] Last Admin: 12/01/18 18:11 Dose: 300 mg Guaifenesin (Robitussin) 100 mg PO Q4H PRN PRN Reason: Cough Last Admin: 12/02/18 04:25 Dose: 100 mg Heparin Sodium (Porcine) (Heparin) 5,000 units SC Q12 [facility] Last Admin: 12/01/18 21:51 Dose: Not Given Vancomycin/Sodium Chloride (Vancomycin 1 Gm/Ns 200 Ml) 1 gm in 200 mls @ 133 mls/hr IVPB Q12H [facility]; Protocol Stop: 12/05/18 22:31 Last Admin: 12/01/18 22:18 Dose: 133 mls/hr Cefepime HCl (Maxipime Iv 2 Gm Premix) 2 gm in 100 mls @ 200 mls/hr IVPB Q8H [facility]; Protocol Stop: 12/05/18 20:01 Last Admin: 12/02/18 03:16 Dose: 200 mls/hr Insulin Detemir (Levemir) 25 unit SC Q12 [facility] Last Admin: 12/01/18 21:27 Dose: 25 units Insulin Human Regular (Novolin R) 0 unit SC ACHS [facility]; Protocol Last Admin: 12/02/18 08:26 Dose: Not Given Lamivudine (Epivir) 300 mg PO DAILY [facility] Last Admin: 12/01/18 09:16 Dose: 300 mg Methylprednisolone (Solu-Medrol) 40 mg IVP Q12 [facility] Last Admin: 12/01/18 21:52 Dose: 40 mg Montelukast Sodium (Singulair) 10 mg PO HS [facility] Last Admin: 12/01/18 21:52 Dose: 10 mg Raltegravir (Isentress) 400 mg PO BID [facility]; Protocol Last Admin: 12/01/18 18:11 Dose: 400 mg - Labs Labs: 12/02/18 07:50 12/02/18 07:50 PT 18.6 SECONDS (9.7-12.2) H 11/30/18 09:35 INR 1.7 11/30/18 09:35 APTT 40 SECONDS (21-34) H 11/30/18 09:35 - Constitutional Appears: In Acute Distress - Head Exam Head Exam: NORMAL INSPECTION - Eye Exam Eye Exam: Normal appearance - ENT Exam ENT Exam: Mucous Membranes Moist - Neck Exam Neck Exam: Full ROM - Respiratory Exam Respiratory Exam: Decreased Breath Sounds, Rhonchi - Cardiovascular Exam Cardiovascular Exam: REGULAR RHYTHM - GI/Abdominal Exam GI & Abdominal Exam: Normal Bowel Sounds - Exam Exam: NORMAL INSPECTION - Extremities Exam Extremities Exam: Normal Capillary Refill - Back Exam Back Exam: NORMAL INSPECTION - Neurological Exam Neurological Exam: Awake, Oriented x3 - Psychiatric Exam Psychiatric exam: Normal Affect - Skin Skin Exam: Pallor Assessment and Plan - Assessment and Plan (Free Text) Assessment: lung infection copd hiv aneamia dmid weekness Plan: cont as ordered
[2018-12-02] MEDS: Vancomycin 1 gm/NS 200 ml 1 GM/200 ML BAG IVPB SCH ×2 (12:00→21:53)
[2018-12-02] MEDS: Multiple Vitamins Tab PO SCH (13:18)
[2018-12-02] MEDS ORDERED: Metoprolol 1 mg/ml Inj IVP ONE (20:50)
[2018-12-03] MEDS: Albuterol-Ipratrop 3 mg / 0.5 (3 ml) UD INH SCH ×6 (00:03→20:34)
[2018-12-03] MEDS: guaiFENesin 100 mg/5 ml Syrup UD PO PRN ×2 (04:27→16:20)
[2018-12-03] MEDS: Cefepime IV 2 gm in Dextrose 2 GM/100 ML BAG IVPB SCH ×3 (04:27→20:38)
[2018-12-03 09:00] LABS: HEMOGLOBIN 8.7 g/dL (12.0-18.0); LYMPH # 0.6 K/uL (1.0-4.3); LYMPH % 3.9 % (20.0-40.0); MEAN CELL VOLUME 83.5 fL (80.0-94.0); MEAN CORPUSCULAR HEMOGLOBIN 26.4 pg (27.0-31.0); MEAN CORPUSCULAR HGB CONC 31.6 g/dL (33.0-37.0); MEAN PLATELET VOLUME 7.9 fL (7.2-11.7); MONO # 0.5 K/uL (0.0-0.8); MONO % 3.6 % (0.0-10.0); NEUT # 13.1 K/uL (1.8-7.0); NEUT % 92.5 % (50.0-75.0); NRBC % 0.1 % (0.0-2.0); PLATELET COUNT 374 K/uL (130-400); WHITE BLOOD COUNT 14.1 K/uL (4.8-10.8)
[2018-12-03 09:34] LABS: ALB/GLOB RATIO 0.8 (1.0-2.1); ALBUMIN 2.7 g/dL (3.5-5.0); ALT/SGPT 13 U/L (21-72); AST/SGOT 22 U/L (17-59); BLOOD UREA NITROGEN 20 mg/dL (9-20); CALCIUM 8.5 mg/dl (8.6-10.4); GFR NON-AFRICAN AMERICAN > 60
[2018-12-03] MEDS: (Novolin R) Insulin Human Regular 100 units/ml vial SC SCH ×4 (09:42→22:04)
[2018-12-03] MEDS: Insulin Detemir 100 units/ml Vial (Levemir) SC SCH ×2 (09:43→22:04)
[2018-12-03] MEDS: MethylPREDNISolone 40 mg Vial IVP SCH (10:18)
[2018-12-03] MEDS: Vancomycin 1 gm/NS 200 ml 1 GM/200 ML BAG IVPB SCH ×2 (10:21→22:02)
[2018-12-03] MEDS: Multiple Vitamins Tab PO SCH (10:21)
[2018-12-03 10:49] LABS: LYMPHOCYTE 4 % (20-40); MONOCYTE 3 % (0-10); NEUTROPHIL 93 % (50-75); TOTAL CELLS COUNTED 100
[2018-12-03 10:50] LABS: ANISOCYTOSIS SLIGHT; PLATELET ESTIMATE NORMAL (NORMAL)
[2018-12-03 10:51] LABS: HYPOCHROMIC SLIGHT; POIKILOCYTOSIS SLIGHT; POLYCHROMIC SLIGHT
[2018-12-03 10:52] LABS: OVALOCYTES SLIGHT; TARGET CELLS SLIGHT
[2018-12-03 10:53] LABS: LARGE PLATELETS PRESENT
--- NOTE | 2018-12-03 10:53 | CP.PCM.PN ---
Subjective - Date & Time of Evaluation Date of Evaluation: 12/03/18 Time of Evaluation: 10:51 - Subjective Subjective: c/o of abdoninal pain cough wheesing anexiety Objective - Vital Signs/Intake and Output Vital Signs (last 24 hours): Temp Pulse Resp BP Pulse Ox 97.5 F L 96 H 18 112/76 100 12/03/18 07:00 12/03/18 07:00 12/03/18 07:00 12/03/18 07:00 12/03/18 07:00 Intake and Output: 12/03/18 12/03/18 06:59 18:59 Intake Total 400 Output Total 800 Balance -400 - Medications Medications: Current Medications Abacavir Sulfate (Ziagen) 300 mg PO BID [facility]; Protocol Last Admin: 12/03/18 10:17 Dose: 300 mg Acetaminophen (Tylenol 325mg Tab) 650 mg PO Q6 PRN PRN Reason: Pain, moderate (4-7) Last Admin: 12/02/18 23:51 Dose: 650 mg Albuterol/Ipratropium (Duoneb 3 Mg/0.5 Mg (3 Ml) Ud) 3 ml INH RQ4 [facility] Last Admin: 12/03/18 09:08 Dose: Not Given Alprazolam (Xanax) 0.25 mg PO Q8 PRN PRN Reason: Anxiety Stop: 12/07/18 14:28 Last Admin: 12/03/18 05:55 Dose: 0.25 mg Amlodipine Besylate (Norvasc) 5 mg PO DAILY [facility] Last Admin: 12/02/18 13:17 Dose: 5 mg Famotidine (Pepcid) 20 mg PO 1000 [facility] Last Admin: 12/02/18 13:18 Dose: 20 mg Ferrous Gluconate (Fergon) 324 mg PO DAILY [facility] Last Admin: 12/03/18 10:18 Dose: 324 mg Furosemide (Lasix) 20 mg PO DAILY [facility] Last Admin: 12/02/18 13:16 Dose: 20 mg Gabapentin (Neurontin) 300 mg PO TID [facility] Last Admin: 12/02/18 17:17 Dose: 300 mg Guaifenesin (Robitussin) 100 mg PO Q4H PRN PRN Reason: Cough Last Admin: 12/03/18 04:27 Dose: 100 mg Heparin Sodium (Porcine) (Heparin) 5,000 units SC Q12 [facility] Last Admin: 12/03/18 10:18 Dose: 5,000 units Vancomycin/Sodium Chloride (Vancomycin 1 Gm/Ns 200 Ml) 1 gm in 200 mls @ 133 mls/hr IVPB Q12H [facility]; Protocol Stop: 12/05/18 22:31 Last Admin: 12/03/18 10:21 Dose: 133 mls/hr Cefepime HCl (Maxipime Iv 2 Gm Premix) 2 gm in 100 mls @ 200 mls/hr IVPB Q8H [facility]; Protocol Stop: 12/05/18 20:01 Last Admin: 12/03/18 04:27 Dose: 200 mls/hr Insulin Detemir (Levemir) 25 unit SC Q12 [facility] Last Admin: 12/03/18 09:43 Dose: 25 units Insulin Human Regular (Novolin R) 0 unit SC ACHS [facility]; Protocol Last Admin: 12/03/18 09:42 Dose: 8 units Lamivudine (Epivir) 300 mg PO DAILY [facility] Last Admin: 12/03/18 10:17 Dose: 300 mg Methylprednisolone (Solu-Medrol) 40 mg IVP Q12 [facility] Last Admin: 12/03/18 10:18 Dose: 40 mg Montelukast Sodium (Singulair) 10 mg PO HS [facility] Last Admin: 12/02/18 21:00 Dose: 10 mg Multivitamins (Hexavitamin) 1 tab PO DAILY [facility] Last Admin: 12/03/18 10:21 Dose: 1 tab Raltegravir (Isentress) 400 mg PO BID [facility]; Protocol Last Admin: 12/03/18 10:17 Dose: 400 mg - Labs Labs: 12/03/18 08:52 12/03/18 08:52 PT 18.6 SECONDS (9.7-12.2) H 11/30/18 09:35 INR 1.7 11/30/18 09:35 APTT 40 SECONDS (21-34) H 11/30/18 09:35 - Constitutional Appears: In Acute Distress - Head Exam Head Exam: ATRAUMATIC - Eye Exam Eye Exam: Normal appearance Pupil Exam: NORMAL ACCOMODATION - ENT Exam ENT Exam: Mucous Membranes Moist - Neck Exam Neck Exam: Full ROM - Respiratory Exam Respiratory Exam: Decreased Breath Sounds, Rales, Rhonchi, Wheezes - Cardiovascular Exam Cardiovascular Exam: Tachycardia - GI/Abdominal Exam GI & Abdominal Exam: Distended, Tenderness - Back Exam Back Exam: NORMAL INSPECTION - Neurological Exam Neurological Exam: Alert, Awake, Oriented x3 - Skin Skin Exam: Pallor Assessment and Plan - Assessment and Plan (Free Text) Assessment: ac abd paiun anexiety ac exa copd lung infection Plan: as per orders
[2018-12-03] MEDS ORDERED: Oxycodone/Acetaminophen 5/325 mg Tab PO PRN (10:58)
[2018-12-03 12:07] LABS: AMYLASE 71 U/L (30-110); LIPASE 120 U/L (23-300)
[2018-12-03] MEDS: LIPASE/PROTEASE/AMYLASE 4,200 U ECC PO SCH ×2 (12:48→18:37)
[2018-12-03] MEDS: Oxycodone/Acetaminophen 5/325 mg Tab PO PRN ×2 (15:59→22:02)
--- NOTE | 2018-12-03 16:00 | RAD ---
Date of service: 12/02/2018 PROCEDURE: Fluoroscopic guidance HISTORY: LUNG MASS COMPARISON: No prior similar study for comparison. TECHNIQUE: Fluoroscopic guidance was provided during bronchoscopy and bronchoscopy guided lung biopsy. Cumulative dose [id number] mGym2. Total fluoroscopic time 63.7 seconds FINDINGS: Fluoroscopic guidance was provided during lung biopsy done through bronchoscopy. IMPRESSION: Fluoroscopic guidance. Please refer to the procedure report for more details.
--- NOTE | 2018-12-03 16:03 | CP.PCM.PN ---
Subjective - Date & Time of Evaluation Date of Evaluation: 12/03/18 Time of Evaluation: 09:00 - Subjective Subjective: chart reviewed patient examined no new complaints orders signed Complaining of cough and weakness Status post bronchoscopy/biopsy/brushing and bronchoalveolar lavage right upper lobe Objective - Vital Signs/Intake and Output Vital Signs (last 24 hours): Temp Pulse Resp BP Pulse Ox 97.5 F L 96 H 18 112/76 100 12/03/18 07:00 12/03/18 07:00 12/03/18 07:00 12/03/18 07:00 12/03/18 07:00 Intake and Output: 12/03/18 12/03/18 06:59 18:59 Intake Total 400 Output Total 800 Balance -400 - Medications Medications: Current Medications Abacavir Sulfate (Ziagen) 300 mg PO BID [facility]; Protocol Last Admin: 12/03/18 10:17 Dose: 300 mg Acetaminophen (Tylenol 325mg Tab) 650 mg PO Q6 PRN PRN Reason: Pain, moderate (4-7) Last Admin: 12/03/18 12:48 Dose: 650 mg Albuterol/Ipratropium (Duoneb 3 Mg/0.5 Mg (3 Ml) Ud) 3 ml INH RQ4 [facility] Last Admin: 12/03/18 11:08 Dose: Not Given Alprazolam (Xanax) 0.25 mg PO Q8 PRN PRN Reason: Anxiety Stop: 12/07/18 14:28 Last Admin: 12/03/18 14:46 Dose: 0.25 mg Amlodipine Besylate (Norvasc) 5 mg PO DAILY [facility] Last Admin: 12/03/18 10:21 Dose: Not Given Famotidine (Pepcid) 20 mg PO 1000 [facility] Last Admin: 12/03/18 12:48 Dose: 20 mg Ferrous Gluconate (Fergon) 324 mg PO DAILY [facility] Last Admin: 12/03/18 10:18 Dose: 324 mg Furosemide (Lasix) 20 mg PO DAILY [facility] Last Admin: 12/03/18 10:21 Dose: Not Given Gabapentin (Neurontin) 300 mg PO TID [facility] Last Admin: 12/03/18 14:46 Dose: 300 mg Guaifenesin (Robitussin) 100 mg PO Q4H PRN PRN Reason: Cough Last Admin: 12/03/18 04:27 Dose: 100 mg Heparin Sodium (Porcine) (Heparin) 5,000 units SC Q12 [facility] Last Admin: 12/03/18 10:18 Dose: 5,000 units Vancomycin/Sodium Chloride (Vancomycin 1 Gm/Ns 200 Ml) 1 gm in 200 mls @ 133 mls/hr IVPB Q12H [facility]; Protocol Stop: 12/05/18 22:31 Last Admin: 12/03/18 10:21 Dose: 133 mls/hr Cefepime HCl (Maxipime Iv 2 Gm Premix) 2 gm in 100 mls @ 200 mls/hr IVPB Q8H [facility]; Protocol Stop: 12/05/18 20:01 Last Admin: 12/03/18 12:49 Dose: 200 mls/hr Insulin Detemir (Levemir) 25 unit SC Q12 [facility] Last Admin: 12/03/18 09:43 Dose: 25 units Insulin Human Regular (Novolin R) 0 unit SC ACHS [facility]; Protocol Last Admin: 12/03/18 12:49 Dose: 8 units Lamivudine (Epivir) 300 mg PO DAILY [facility] Last Admin: 12/03/18 10:17 Dose: 300 mg Methylprednisolone (Solu-Medrol) 30 mg 0.5 mg/kg (30 mg) IV BID [facility] Montelukast Sodium (Singulair) 10 mg PO HS [facility] Last Admin: 12/02/18 21:00 Dose: 10 mg Multivitamins (Hexavitamin) 1 tab PO DAILY [facility] Last Admin: 12/03/18 10:21 Dose: 1 tab Oxycodone/Acetaminophen (Percocet 5/325 Mg Tab) 1 tab PO Q6H PRN PRN Reason: Pain, severe (8-10) Stop: 12/06/18 10:59 Last Admin: 12/03/18 15:59 Dose: 1 tab Raltegravir (Isentress) 400 mg PO BID [facility]; Protocol Last Admin: 12/03/18 10:17 Dose: 400 mg - Labs Labs: 12/03/18 08:52 12/03/18 08:52 PT 18.6 SECONDS (9.7-12.2) H 11/30/18 09:35 INR 1.7 11/30/18 09:35 APTT 40 SECONDS (21-34) H 11/30/18 09:35 - Constitutional Appears: Non-toxic, Chronically Ill - Head Exam Head Exam: NORMOCEPHALIC - Eye Exam Eye Exam: absent: Scleral icterus Pupil Exam: NORMAL ACCOMODATION - ENT Exam ENT Exam: Mucous Membranes Dry - Neck Exam Neck Exam: absent: Lymphadenopathy - Respiratory Exam Respiratory Exam: Decreased Breath Sounds, Prolonged Expiratory Phase, Rhonchi - Cardiovascular Exam Cardiovascular Exam: Tachycardia, REGULAR RHYTHM, +S1, +S2 - GI/Abdominal Exam GI & Abdominal Exam: Distended, Soft - Rectal Exam Rectal Exam: Deferred - Exam Exam: NORMAL INSPECTION - Extremities Exam Extremities Exam: Pedal Edema (x) - Back Exam Back Exam: absent: CVA tenderness (L), CVA tenderness (R) - Neurological Exam Neurological Exam: Alert, Awake, CN II-XII Intact, Oriented x3 Assessment and Plan (1) COPD exacerbation Status: Acute (2) Dyspnea Status: Acute (3) Sepsis Status: Acute (4) ARF (acute renal failure) Status: Acute (5) HIV (human immunodeficiency virus infection) Status: Acute - Assessment and Plan (Free Text) Assessment: Complaining of cough and weakness Status post bronchoscopy/biopsy/brushing and bronchoalveolar lavage right upper lobe cont IV rx post obstructive pneumonia cont HAART rx
[2018-12-03] MEDS: MethylPREDNISolone 40 mg Vial IV SCH (18:37)
[2018-12-04] MEDS: Albuterol-Ipratrop 3 mg / 0.5 (3 ml) UD INH SCH ×6 (01:15→19:08)
[2018-12-04] MEDS: Cefepime IV 2 gm in Dextrose 2 GM/100 ML BAG IVPB SCH ×3 (03:11→21:14)
[2018-12-04] MEDS: Oxycodone/Acetaminophen 5/325 mg Tab PO PRN ×2 (05:48→17:48)
[2018-12-04] MEDS: guaiFENesin 100 mg/5 ml Syrup UD PO PRN ×2 (06:24→11:56)
[2018-12-04 07:55] LABS: BASO % 0.1 % (0.0-2.0); HEMOGLOBIN 9.2 g/dL (12.0-18.0); LYMPH # 0.3 K/uL (1.0-4.3); LYMPH % 2.2 % (20.0-40.0); MEAN CELL VOLUME 84.1 fL (80.0-94.0); MEAN CORPUSCULAR HEMOGLOBIN 26.1 pg (27.0-31.0); MEAN PLATELET VOLUME 8.3 fL (7.2-11.7); MONO # 0.6 K/uL (0.0-0.8); MONO % 3.9 % (0.0-10.0); NEUT % 93.8 % (50.0-75.0); PLATELET COUNT 364 K/uL (130-400); RBC 3.53 Mil/uL (4.40-5.90); RED CELL DISTRIBUTION WIDTH 17.1 % (11.5-14.5); WHITE BLOOD COUNT 14.9 K/uL (4.8-10.8)
[2018-12-04 08:10] LABS: ALB/GLOB RATIO 0.9 (1.0-2.1); ALBUMIN 2.9 g/dL (3.5-5.0); ALT/SGPT 17 U/L (21-72); AST/SGOT 21 U/L (17-59); BLOOD UREA NITROGEN 28 mg/dL (9-20); CALCIUM 8.8 mg/dl (8.6-10.4); GFR NON-AFRICAN AMERICAN > 60
[2018-12-04] MEDS: Insulin Detemir 100 units/ml Vial (Levemir) SC SCH ×2 (09:00→21:16)
[2018-12-04] MEDS: Multiple Vitamins Tab PO SCH (09:04)
[2018-12-04] MEDS: LIPASE/PROTEASE/AMYLASE 4,200 U ECC PO SCH ×3 (09:04→17:47)
[2018-12-04] MEDS: MethylPREDNISolone 40 mg Vial IV SCH ×2 (09:05→17:47)
[2018-12-04] MEDS: (Novolin R) Insulin Human Regular 100 units/ml vial SC SCH ×4 (09:06→22:08)
--- NOTE | 2018-12-04 09:15 | OP ---
PROCEDURE DATE: 12/02/2018 PROCEDURE: Fiberoptic bronchoscopy with biopsy, brushing and bronchoalveolar lavage. INDICATION: Right upper lung mass/consolidation. Fiberoptic bronchoscopy procedure was done after obtaining consent from the patient, explaining the patient's risks and benefits which he understood and agreed after he refused many times in the past. Procedure was done under sedation by the anesthesiologist. DESCRIPTION OF PROCEDURE: The nose and the throat was prepared with lidocaine. The bronchoscope was passed through the left nostril into the throat. There was normal movement of vocal cords. After lidocaine, the bronchoscope was advanced to the trachea. The trachea appeared normal. Thick purulent secretions noted, which were suctioned out. Main wai was . The left main, the left upper, the left lower all appeared normal except minimal amount of secretion. The bronchoscope was pulled back and passed through the right side. The right upper lobe was very edematous with swelling of the mucosa, and multiple biopsies, brushing and bronchoalveolar lavage done from right upper lobe. The patient tolerated the procedure well. Minimal amount of bleeding noted. Wilbur Alfaro MD
[2018-12-04] MEDS: Vancomycin 1 gm/NS 200 ml 1 GM/200 ML BAG IVPB SCH ×2 (11:56→22:08)
[2018-12-04 12:06] LABS: LYMPHOCYTE 2 % (20-40); MONOCYTE 1 % (0-10); NEUTROPHIL 97 % (50-75); TOTAL CELLS COUNTED 100
[2018-12-04 12:07] LABS: ANISOCYTOSIS SLIGHT; PLATELET ESTIMATE NORMAL (NORMAL)
[2018-12-04 12:08] LABS: HYPOCHROMIC SLIGHT; POLYCHROMIC SLIGHT; TARGET CELLS SLIGHT
--- NOTE | 2018-12-04 13:52 | PCM.PSYCH ---
Initial Psychiatric Evaluation - Initial Psychiatric Evaluation Type of Admission: Voluntary Legal Status: Capacity Chief Complaint (in patient's own words): "my anxiety is pretty bad" History of Present Illness and Precipitating Events: PGY-1 Psych consult note for Dr Spangler psych service reason for consult: psych eval, hx of anxiety Patient is a 63 year old female with past psych hx of anxiety, admitted to hospital for COPD exarcerbation and Pneumonia. Patient is a poor historian, and is lethargic during encounter. Patient states he started having episodes of anxiety since "operation", which he later explained he refers to bronchoscopy procedure. Patient states this was the day before yesterday. Patient admits having anxiety for a long time now. Patient states taking xanax regularly. Patient has not seen psychiatrist or have been admitted to hospital for psych issues. As per nurse, patient has been requesting xanax every four hours. Patient denies any homicidal or suicidal ideation. Patient requested to be left alone, as he did not wanted to talk any more. Pmhx: HIV, COPD, HTN, DM, Hep C, chronic pancreatitis Psych hx: anxiety Sochx: former 1 PPD for 51 years, quitted 10 years ago, no alcohol or drug use (as per chart review) Psych Meds: Xanax .25 mg PO Q8 PRN Current Medications: Active Medications Generic Name Dose Route Start Last Admin Trade Name Freq PRN Reason Stop Dose Admin Abacavir Sulfate 300 mg 11/30/18 18:00 12/04/18 09:04 Ziagen PO 300 mg BID [facility] Administration Protocol Acetaminophen 650 mg 12/02/18 14:19 12/03/18 12:48 Tylenol 325mg Tab PO 650 mg Q6 PRN Administration Pain, moderate (4-7) Albuterol/Ipratropium 3 ml 11/30/18 16:00 12/04/18 11:38 Duoneb 3 Mg/0.5 Mg (3 Ml) Ud INH Not Given RQ4 [facility] Alprazolam 0.25 mg 11/30/18 14:27 12/03/18 14:46 Xanax PO 12/07/18 14:28 0.25 mg Q8 PRN Administration Anxiety Amlodipine Besylate 5 mg 11/30/18 14:30 12/04/18 09:04 Norvasc PO 5 mg DAILY [facility] Administration Famotidine 20 mg 12/01/18 10:00 12/04/18 09:04 Pepcid PO 20 mg 1000 [facility] Administration Ferrous Gluconate 324 mg 12/02/18 13:00 12/04/18 09:04 Fergon PO 324 mg DAILY [facility] Administration Furosemide 20 mg 11/30/18 14:30 12/04/18 09:07 Lasix PO 20 mg DAILY [facility] Administration Gabapentin 300 mg 11/30/18 18:00 12/04/18 09:04 Neurontin PO 300 mg TID [facility] Administration Guaifenesin 100 mg 12/01/18 18:05 12/04/18 11:56 Robitussin PO 100 mg Q4H PRN Administration Cough Vancomycin/Sodium Chloride 1 gm in 200 mls @ 133 mls/hr 11/30/18 22:30 12/04/18 11:56 Vancomycin 1 Gm/Ns 200 Ml IVPB 12/05/18 22:31 133 mls/hr Q12H [facility] Administration Protocol Cefepime HCl 2 gm in 100 mls @ 200 mls/hr 11/30/18 20:00 12/04/18 03:11 Maxipime Iv 2 Gm Premix IVPB 12/05/18 20:01 200 mls/hr Q8H [facility] Administration Protocol Insulin Detemir 25 unit 12/01/18 22:00 12/04/18 09:00 Levemir SC 25 units Q12 [facility] Administration Insulin Human Regular 0 unit 11/30/18 17:00 12/04/18 09:06 Novolin R SC 3 units ACHS [facility] Administration Protocol Lamivudine 300 mg 12/01/18 10:00 12/04/18 09:03 Epivir PO 300 mg DAILY [facility] Administration Methylprednisolone 30 mg 12/03/18 18:00 12/04/18 09:05 Solu-Medrol 0.5 mg/kg (30 mg) 30 mg IV Administration BID [facility] Montelukast Sodium 10 mg 11/30/18 22:00 12/03/18 22:01 Singulair PO 10 mg HS [facility] Administration Multivitamins 1 tab 12/02/18 13:00 12/04/18 09:04 Hexavitamin PO 1 tab DAILY [facility] Administration Oxycodone/Acetaminophen 1 tab 12/03/18 16:00 12/04/18 05:48 Percocet 5/325 Mg Tab PO 12/06/18 10:59 1 tab Q6H PRN Administration Pain, severe (8-10) Raltegravir 400 mg 11/30/18 18:00 12/04/18 09:05 Isentress PO 400 mg BID [facility] Administration Protocol Past Psychiatric History - Past Psychiatric History Pertinent Medical Hx (Current Medical&Sleep Prob, Allergies): Allergies Allergy/AdvReac Type Severity Reaction Status Date / Time No Known Allergies Allergy Verified 11/30/18 09:28 Aspirin [Ecotrin] 81 mg PO DAILY 08/09/18 ALPRAZolam [Xanax] 0.25 mg PO Q8 PRN tab 09/13/18 Abacavir [Ziagen] 300 mg PO BID tab 09/13/18 Budesonide [Pulmicort Respules] 0.25 mg IH [id number] nebu 09/13/18 Famotidine [Pepcid] 20 mg PO 1000 tab 09/13/18 Gabapentin [Neurontin] 300 mg PO TID cap 09/13/18 Insulin Detemir [Levemir] 20 unit SC BRK unit 09/13/18 Insulin Human Regular-HIGH [HumuLIN R HIGH] 0 units SC ACHS ml 09/13/18 amLODIPine [Norvasc] 5 mg PO DAILY tab 09/13/18 Lamivudine [Epivir] 300 mg PO DAILY 09/27/18 Raltegravir Potassium [Isentress] 400 mg PO BID 09/27/18 Albuterol HFA [Ventolin HFA 90 mcg/actuation (8 g)] 2 puff IH Q6 PRN #1 inhaler 09/28/18 Arformoterol [Brovana] 15 mcg IH [id number] #1 neb 09/28/18 Montelukast [Singulair] 10 mg PO HS #1 tab 09/28/18 Ferrous Sulfate 325 mg PO DAILY #30 tablet 11/17/18 predniSONE [predniSONE Tab] 30 mg PO DAILY #18 tab 11/17/18 Albuterol/Ipratropium [Duoneb 3 mg/0.5 mg (3 ml) UD] 3 ml IH Q6 30 Days neb 11/29/18 Furosemide [Lasix] 20 mg PO DAILY #30 tab 11/29/18 levoFLOXacin [Levaquin] 500 mg PO DAILY #7 tab 11/29/18 Insulin Detemir [Levemir] 20 unit SC BID 11/30/18 Review of Systems - Psychiatric Psychiatric: Anxiety. absent: Abnormal Sleep Pattern, Auditory Hallucinations, Hallucinations, Homicidal Ideation, Suicidal Ideation, Visual Hallucinations Mental Status Examination - Personal Presentation Personal Presentation: Looks older than stated age - Affect Affect: Constricted - Motor Activity Motor Activity: Psychomotor Retardation - Reliability in Providing Information Reliability in Providing Information: Fair, Other (difficulty breathing/coughing) - Speech Speech: Organized - Mood Mood: Depressed, Anxious - Formal Thought Process Formal Thought Process: No Impairment - Cognitive Functions Orientation: Person, Place, Time Sensorium: Lethargic Judgement: Intact, as evidence by: [facility] regarding need for hospitalization DSM 5 DX - DSM 5 DSM 5 Diagnosis: Unspecified anxiety disorder - Chronic - Recommended/Plan of Treatment Treatment Recommendations and Plan of Treatment: Continue anxiolytics as needed Continue medical management continue Support and psychoeducation Plan d/w Dr Aníbal Casillas, PGY-1
--- NOTE | 2018-12-04 18:02 | CP.PCM.PN ---
Subjective - Date & Time of Evaluation Date of Evaluation: 12/04/18 Time of Evaluation: 17:59 - Subjective Subjective: c/o of abdominal pain unable to eate still coughing Objective - Vital Signs/Intake and Output Vital Signs (last 24 hours): Temp Pulse Resp BP Pulse Ox 98.1 F 106 H 18 114/73 97 12/04/18 15:00 12/04/18 16:00 12/04/18 15:00 12/04/18 15:00 12/04/18 15:00 Intake and Output: 12/04/18 12/04/18 06:59 18:59 Intake Total 1230 1150 Output Total 1300 Balance -70 1150 - Medications Medications: Current Medications Abacavir Sulfate (Ziagen) 300 mg PO BID [facility]; Protocol Last Admin: 12/04/18 17:47 Dose: 300 mg Acetaminophen (Tylenol 325mg Tab) 650 mg PO Q6 PRN PRN Reason: Pain, moderate (4-7) Last Admin: 12/03/18 12:48 Dose: 650 mg Albuterol/Ipratropium (Duoneb 3 Mg/0.5 Mg (3 Ml) Ud) 3 ml INH RQ4 [facility] Last Admin: 12/04/18 11:38 Dose: Not Given Alprazolam (Xanax) 0.25 mg PO Q8 PRN PRN Reason: Anxiety Stop: 12/07/18 14:28 Last Admin: 12/03/18 14:46 Dose: 0.25 mg Amlodipine Besylate (Norvasc) 5 mg PO DAILY [facility] Last Admin: 12/04/18 09:04 Dose: 5 mg Famotidine (Pepcid) 20 mg PO 1000 [facility] Last Admin: 12/04/18 09:04 Dose: 20 mg Ferrous Gluconate (Fergon) 324 mg PO DAILY [facility] Last Admin: 12/04/18 09:04 Dose: 324 mg Furosemide (Lasix) 20 mg PO DAILY [facility] Last Admin: 12/04/18 09:07 Dose: 20 mg Gabapentin (Neurontin) 300 mg PO TID [facility] Last Admin: 12/04/18 17:48 Dose: 300 mg Guaifenesin (Robitussin) 100 mg PO Q4H PRN PRN Reason: Cough Last Admin: 12/04/18 11:56 Dose: 100 mg Vancomycin/Sodium Chloride (Vancomycin 1 Gm/Ns 200 Ml) 1 gm in 200 mls @ 133 mls/hr IVPB Q12H [facility]; Protocol Stop: 12/05/18 22:31 Last Admin: 12/04/18 11:56 Dose: 133 mls/hr Cefepime HCl (Maxipime Iv 2 Gm Premix) 2 gm in 100 mls @ 200 mls/hr IVPB Q8H [facility]; Protocol Stop: 12/05/18 20:01 Last Admin: 12/04/18 13:36 Dose: 200 mls/hr Insulin Detemir (Levemir) 25 unit SC Q12 [facility] Last Admin: 12/04/18 09:00 Dose: 25 units Insulin Human Regular (Novolin R) 0 unit SC ACHS [facility]; Protocol Last Admin: 12/04/18 17:48 Dose: 10 units Lamivudine (Epivir) 300 mg PO DAILY [facility] Last Admin: 12/04/18 09:03 Dose: 300 mg Methylprednisolone (Solu-Medrol) 30 mg 0.5 mg/kg (30 mg) IV BID [facility] Last Admin: 12/04/18 17:47 Dose: 30 mg Montelukast Sodium (Singulair) 10 mg PO HS [facility] Last Admin: 12/03/18 22:01 Dose: 10 mg Multivitamins (Hexavitamin) 1 tab PO DAILY [facility] Last Admin: 12/04/18 09:04 Dose: 1 tab Oxycodone/Acetaminophen (Percocet 5/325 Mg Tab) 1 tab PO Q6H PRN PRN Reason: Pain, severe (8-10) Stop: 12/06/18 10:59 Last Admin: 12/04/18 17:48 Dose: 1 tab Raltegravir (Isentress) 400 mg PO BID [facility]; Protocol Last Admin: 12/04/18 17:49 Dose: 400 mg - Labs Labs: 12/04/18 07:40 12/04/18 07:40 PT 18.6 SECONDS (9.7-12.2) H 11/30/18 09:35 INR 1.7 11/30/18 09:35 APTT 40 SECONDS (21-34) H 11/30/18 09:35 - Constitutional Appears: In Acute Distress - Head Exam Head Exam: ATRAUMATIC - ENT Exam ENT Exam: Mucous Membranes Moist - Neck Exam Neck Exam: Full ROM - Respiratory Exam Respiratory Exam: Rhonchi, Wheezes - Cardiovascular Exam Cardiovascular Exam: REGULAR RHYTHM - GI/Abdominal Exam GI & Abdominal Exam: Tenderness, Diminished Bowel Sounds, Rebound - Exam Exam: NORMAL INSPECTION - Extremities Exam Extremities Exam: Normal Inspection - Back Exam Back Exam: NORMAL INSPECTION - Psychiatric Exam Psychiatric exam: Normal Affect - Skin Skin Exam: Pallor Assessment and Plan - Assessment and Plan (Free Text) Assessment: abdominal pain ac exacerbation copd infection lung hiv dmid uncontroled aneamia Plan: as ordered
--- NOTE | 2018-12-04 18:55 | CP.PCM.PN ---
Subjective - Date & Time of Evaluation Date of Evaluation: 12/04/18 Time of Evaluation: 10:40 - Subjective Subjective: Patient seen and examined Still complaining of cough and shortness of breath Status post bronchoscopy and biopsy Bronchial washing positive for yeast Follow-up pathology report continue nebulizer treatment And antibiotics Objective - Vital Signs/Intake and Output Vital Signs (last 24 hours): Temp Pulse Resp BP Pulse Ox 98.1 F 106 H 18 114/73 97 12/04/18 15:00 12/04/18 16:00 12/04/18 15:00 12/04/18 15:00 12/04/18 15:00 Intake and Output: 12/04/18 12/04/18 06:59 18:59 Intake Total 1230 1150 Output Total 1300 Balance -70 1150 - Medications Medications: Current Medications Abacavir Sulfate (Ziagen) 300 mg PO BID [facility]; Protocol Last Admin: 12/04/18 17:47 Dose: 300 mg Acetaminophen (Tylenol 325mg Tab) 650 mg PO Q6 PRN PRN Reason: Pain, moderate (4-7) Last Admin: 12/03/18 12:48 Dose: 650 mg Albuterol/Ipratropium (Duoneb 3 Mg/0.5 Mg (3 Ml) Ud) 3 ml INH RQ4 [facility] Last Admin: 12/04/18 11:38 Dose: Not Given Alprazolam (Xanax) 0.25 mg PO Q8 PRN PRN Reason: Anxiety Stop: 12/07/18 14:28 Last Admin: 12/03/18 14:46 Dose: 0.25 mg Amlodipine Besylate (Norvasc) 5 mg PO DAILY [facility] Last Admin: 12/04/18 09:04 Dose: 5 mg Famotidine (Pepcid) 20 mg PO 1000 [facility] Last Admin: 12/04/18 09:04 Dose: 20 mg Ferrous Gluconate (Fergon) 324 mg PO DAILY [facility] Last Admin: 12/04/18 09:04 Dose: 324 mg Furosemide (Lasix) 20 mg PO DAILY [facility] Last Admin: 12/04/18 09:07 Dose: 20 mg Gabapentin (Neurontin) 300 mg PO TID [facility] Last Admin: 12/04/18 17:48 Dose: 300 mg Guaifenesin (Robitussin) 100 mg PO Q4H PRN PRN Reason: Cough Last Admin: 12/04/18 11:56 Dose: 100 mg Vancomycin/Sodium Chloride (Vancomycin 1 Gm/Ns 200 Ml) 1 gm in 200 mls @ 133 mls/hr IVPB Q12H [facility]; Protocol Stop: 12/05/18 22:31 Last Admin: 12/04/18 11:56 Dose: 133 mls/hr Cefepime HCl (Maxipime Iv 2 Gm Premix) 2 gm in 100 mls @ 200 mls/hr IVPB Q8H [facility]; Protocol Stop: 12/05/18 20:01 Last Admin: 12/04/18 13:36 Dose: 200 mls/hr Insulin Detemir (Levemir) 25 unit SC Q12 [facility] Last Admin: 12/04/18 09:00 Dose: 25 units Insulin Human Regular (Novolin R) 0 unit SC ACHS [facility]; Protocol Last Admin: 12/04/18 17:48 Dose: 10 units Lamivudine (Epivir) 300 mg PO DAILY [facility] Last Admin: 12/04/18 09:03 Dose: 300 mg Methylprednisolone (Solu-Medrol) 30 mg 0.5 mg/kg (30 mg) IV BID [facility] Last Admin: 12/04/18 17:47 Dose: 30 mg Montelukast Sodium (Singulair) 10 mg PO HS [facility] Last Admin: 12/03/18 22:01 Dose: 10 mg Multivitamins (Hexavitamin) 1 tab PO DAILY [facility] Last Admin: 12/04/18 09:04 Dose: 1 tab Oxycodone/Acetaminophen (Percocet 5/325 Mg Tab) 1 tab PO Q6H PRN PRN Reason: Pain, severe (8-10) Stop: 12/06/18 10:59 Last Admin: 12/04/18 17:48 Dose: 1 tab Raltegravir (Isentress) 400 mg PO BID [facility]; Protocol Last Admin: 12/04/18 17:49 Dose: 400 mg - Labs Labs: 12/04/18 07:40 12/04/18 07:40 PT 18.6 SECONDS (9.7-12.2) H 11/30/18 09:35 INR 1.7 11/30/18 09:35 APTT 40 SECONDS (21-34) H 11/30/18 09:35
[2018-12-04 19:30] LABS: AMYLASE 54 U/L (30-110); LIPASE 147 U/L (23-300)
[2018-12-05] MEDS: guaiFENesin 100 mg/5 ml Syrup UD PO PRN ×3 (00:10→15:04)
[2018-12-05] MEDS: Oxycodone/Acetaminophen 5/325 mg Tab PO PRN (00:10)
[2018-12-05] MEDS: Albuterol-Ipratrop 3 mg / 0.5 (3 ml) UD INH SCH ×6 (00:29→19:33)
[2018-12-05] MEDS: Cefepime IV 2 gm in Dextrose 2 GM/100 ML BAG IVPB SCH ×3 (04:28→20:00)
[2018-12-05] MEDS: (Novolin R) Insulin Human Regular 100 units/ml vial SC SCH ×4 (08:30→22:00)
[2018-12-05] MEDS: MethylPREDNISolone 40 mg Vial IV SCH ×2 (09:13→17:43)
[2018-12-05] MEDS: LIPASE/PROTEASE/AMYLASE 4,200 U ECC PO SCH ×3 (09:14→17:43)
[2018-12-05] MEDS: Insulin Detemir 100 units/ml Vial (Levemir) SC SCH ×2 (09:15→22:00)
[2018-12-05] MEDS: Multiple Vitamins Tab PO SCH (09:15)
--- NOTE | 2018-12-05 09:19 | RAD ---
Date of service: 12/04/2018 PROCEDURE: Radiographs of the chest and abdomen (obstructive series) HISTORY: abdominal pain COMPARISON: 12/02/2018 chest x-ray. Chest without contrast 11/27/2018 TECHNIQUE: AP radiograph of the chest, with upright and supine radiographs of the abdomen. 3 views obtained. FINDINGS: CHEST: Lungs: Right upper lobe consolidation with nodular masslike opacity is present. Patient has known mass and apparently has had a prior right bronchoscopy and biopsy for this. Please no prior CT chest report and prior 12/02/2018 report stating status post bronchoscopy evaluate for pneumothorax. Cardiovascular: Normal size heart. No pulmonary vascular congestion. No aortic atherosclerotic calcification present Pleura: No pleural fluid. No pneumothorax. Other findings: None. ABDOMEN AND PELVIS: Bowel: Moderate stool retention. No evidence of mechanical obstruction. Free air: None. Bones: Degenerative changes Other findings: None. IMPRESSION: Right upper lobe mass concerning for malignancy-correlate clinically with prior pathology results. No evidence of mechanical bowel obstruction. Moderate stool retention. No free air seen please note prior CT chest report findings regarding liver lesions.
[2018-12-05] MEDS: Vancomycin 1 gm/NS 200 ml 1 GM/200 ML BAG IVPB SCH ×2 (10:08→23:00)
[2018-12-05] MEDS ORDERED: Metoprolol 1 mg/ml Inj IVP ONE (10:15)
--- NOTE | 2018-12-05 10:51 | CP.PCM.PN ---
Subjective - Date & Time of Evaluation Date of Evaluation: 12/05/18 Time of Evaluation: 10:48 - Subjective Subjective: has sob refusing all pills today stomack herts Objective - Vital Signs/Intake and Output Vital Signs (last 24 hours): Temp Pulse Resp BP Pulse Ox 98.4 F 130 H 18 108/73 96 12/05/18 08:28 12/05/18 10:21 12/05/18 08:28 12/05/18 10:21 12/05/18 08:28 - Medications Medications: Current Medications Abacavir Sulfate (Ziagen) 300 mg PO BID [facility]; Protocol Last Admin: 12/05/18 09:14 Dose: 300 mg Acetaminophen (Tylenol 325mg Tab) 650 mg PO Q6 PRN PRN Reason: Pain, moderate (4-7) Last Admin: 12/03/18 12:48 Dose: 650 mg Albuterol/Ipratropium (Duoneb 3 Mg/0.5 Mg (3 Ml) Ud) 3 ml INH RQ4 [facility] Last Admin: 12/05/18 07:49 Dose: 3 ml Alprazolam (Xanax) 0.25 mg PO Q8 PRN PRN Reason: Anxiety Stop: 12/07/18 14:28 Last Admin: 12/05/18 06:40 Dose: 0.25 mg Amlodipine Besylate (Norvasc) 5 mg PO DAILY [facility] Last Admin: 12/05/18 09:15 Dose: 5 mg Famotidine (Pepcid) 20 mg PO 1000 [facility] Last Admin: 12/05/18 09:15 Dose: 20 mg Ferrous Gluconate (Fergon) 324 mg PO DAILY [facility] Last Admin: 12/05/18 09:15 Dose: 324 mg Furosemide (Lasix) 20 mg PO DAILY [facility] Last Admin: 12/05/18 09:16 Dose: 20 mg Gabapentin (Neurontin) 300 mg PO TID [facility] Last Admin: 12/05/18 09:15 Dose: 300 mg Guaifenesin (Robitussin) 100 mg PO Q4H PRN PRN Reason: Cough Last Admin: 12/05/18 09:15 Dose: 100 mg Vancomycin/Sodium Chloride (Vancomycin 1 Gm/Ns 200 Ml) 1 gm in 200 mls @ 133 mls/hr IVPB Q12H [facility]; Protocol Stop: 12/05/18 22:31 Last Admin: 12/05/18 10:08 Dose: 133 mls/hr Cefepime HCl (Maxipime Iv 2 Gm Premix) 2 gm in 100 mls @ 200 mls/hr IVPB Q8H [facility]; Protocol Stop: 12/05/18 20:01 Last Admin: 12/05/18 04:28 Dose: 200 mls/hr Insulin Detemir (Levemir) 25 unit SC Q12 [facility] Last Admin: 12/05/18 09:15 Dose: 25 units Insulin Human Regular (Novolin R) 0 unit SC ACHS [facility]; Protocol Last Admin: 12/05/18 08:30 Dose: 8 units Lamivudine (Epivir) 300 mg PO DAILY [facility] Last Admin: 12/05/18 09:15 Dose: 300 mg Methylprednisolone (Solu-Medrol) 30 mg 0.5 mg/kg (30 mg) IV BID [facility] Last Admin: 12/05/18 09:13 Dose: 30 mg Montelukast Sodium (Singulair) 10 mg PO HS [facility] Last Admin: 12/04/18 21:16 Dose: 10 mg Multivitamins (Hexavitamin) 1 tab PO DAILY [facility] Last Admin: 12/05/18 09:15 Dose: 1 tab Oxycodone/Acetaminophen (Percocet 5/325 Mg Tab) 1 tab PO Q6H PRN PRN Reason: Pain, severe (8-10) Stop: 12/06/18 10:59 Last Admin: 12/05/18 00:10 Dose: 1 tab Raltegravir (Isentress) 400 mg PO BID [facility]; Protocol Last Admin: 12/05/18 09:15 Dose: 400 mg - Labs Labs: 12/04/18 07:40 12/04/18 07:40 PT 18.6 SECONDS (9.7-12.2) H 11/30/18 09:35 INR 1.7 11/30/18 09:35 APTT 40 SECONDS (21-34) H 11/30/18 09:35 - Constitutional Appears: In Acute Distress - Head Exam Head Exam: ATRAUMATIC - Eye Exam Eye Exam: Normal appearance Pupil Exam: NORMAL ACCOMODATION - ENT Exam ENT Exam: Normal External Ear Exam - Respiratory Exam Respiratory Exam: Decreased Breath Sounds, Rales, Wheezes, Respiratory Distress - Cardiovascular Exam Cardiovascular Exam: Tachycardia - GI/Abdominal Exam GI & Abdominal Exam: Tenderness, Diminished Bowel Sounds - Exam Exam: NORMAL INSPECTION - Extremities Exam Extremities Exam: Normal Inspection - Back Exam Back Exam: Full ROM - Psychiatric Exam Psychiatric exam: Anxious - Skin Skin Exam: Pallor Assessment and Plan - Assessment and Plan (Free Text) Assessment: ac resp discomfort copd exacerbation dmid lung infection and leasions ac pancreatitis Plan: as ordered
--- NOTE | 2018-12-05 13:03 | CP.PCM.CON ---
<Maikel Abdi - Last Filed: 12/05/18 17:12> History of Present Illness - History of Present Illness History of Present Illness: ICU Consult Note for Dr. Alfaro This is a 63 y o male with PMhx HIV, COPD, HTN, DM, Hep C, chronic pancreatitis, who presented to the ED with worsening sob. Pt reported at time that he was at home and felt that the room was too hot and thus felt short of breath. Was recently discharged from [facility] where he was treated for similar symptoms. Pt has hx known lung mass, s/p bronchoscopy with bx, brushing and bronchoalveolar lavage on 12/02/18. R upper lobe lung bx positive for non-small cell carcinoma, favor squamous cell carcinoma. R upper lobe brushings and washing positive for non-small cell carcinoma and SCC. Reason for ICU consult was for worsening respiratory distress as per staff. Pt transferred to ICU for further monitoring. Observed eating ice cream on exam while being transported to ICU bed. Further ROS unobtainable due to pt's current clinical status. PMhx: as noted above PSurgHx: R cataract surgery Allergies: NKDA Current meds: reviewed as per [facility] hx: non-contributory Soc hx: former 1 ppd smoker x 51 y, quit 10 y ago PMD: Dr. Garcia Review of Systems - Review of Systems Systems not reviewed;Unavailable: Respiratory Distress Past Patient History - Infectious Disease Hx of Infectious Diseases: None - Tetanus Immunizations Tetanus Immunization: Unknown - Past Medical History & Family History Past Medical History?: Yes - Past Social History Smoking Status: Former Smoker - CARDIAC Hx Pacemaker: No - PULMONARY Hx Asthma: No (denies) Hx Bronchitis: Yes Hx Chronic Obstructive Pulmonary Disease (COPD): Yes Hx Emphysema: Yes Hx Pneumonia: Yes (OCT 2018) Hx Sleep Apnea: Yes (occasional uses bipap) - NEUROLOGICAL Hx Seizures: No - HEENT Hx HEENT Problems: Yes Hx Cataracts: Yes (right eye sx) - RENAL Hx Chronic Kidney Disease: No - ENDOCRINE/METABOLIC Hx Endocrine Disorders: Yes Hx Diabetes Mellitus Type 2: Yes - HEMATOLOGICAL/ONCOLOGICAL Hx Cancer: No - INTEGUMENTARY Hx Dermatological Problems: No - MUSCULOSKELETAL/RHEUMATOLOGICAL Hx Arthritis: Yes (KNEES) Hx Falls: No Hx Fractures: (FACIAL FRACTURE WITH PLATE,HAD JAW SX TOO) - GASTROINTESTINAL Hx Pancreatitis: Yes - GENITOURINARY/GYNECOLOGICAL Hx Sexually Transmitted Disorders: No - PSYCHIATRIC Hx Anxiety: Yes Hx Substance Use: No - SURGICAL HISTORY Hx Mastectomy: No - ANESTHESIA Hx Anesthesia: Yes Hx Anesthesia Reactions: No Hx Malignant Hyperthermia: No Meds Allergies/Adverse Reactions: Allergies Allergy/AdvReac Type Severity Reaction Status Date / Time No Known Allergies Allergy Verified 11/30/18 09:28 - Medications Medications: Current Medications Abacavir Sulfate (Ziagen) 300 mg PO BID [facility]; Protocol Last Admin: 12/05/18 09:14 Dose: Not Given Acetaminophen (Tylenol 325mg Tab) 650 mg PO Q6 PRN PRN Reason: Pain, moderate (4-7) Last Admin: 12/03/18 12:48 Dose: 650 mg Albuterol/Ipratropium (Duoneb 3 Mg/0.5 Mg (3 Ml) Ud) 3 ml INH RQ4 [facility] Last Admin: 12/05/18 11:17 Dose: 3 ml Alprazolam (Xanax) 0.25 mg PO Q8 PRN PRN Reason: Anxiety Stop: 12/07/18 14:28 Last Admin: 12/05/18 06:40 Dose: 0.25 mg Amlodipine Besylate (Norvasc) 5 mg PO DAILY [facility] Last Admin: 12/05/18 09:15 Dose: Not Given Belladonna/Phenobarbital () 1 tab PO TID [facility] Famotidine (Pepcid) 20 mg PO 1000 [facility] Last Admin: 12/05/18 09:15 Dose: Not Given Ferrous Gluconate (Fergon) 324 mg PO DAILY [facility] Last Admin: 12/05/18 09:15 Dose: Not Given Furosemide (Lasix) 20 mg PO DAILY [facility] Last Admin: 12/05/18 09:16 Dose: Not Given Gabapentin (Neurontin) 300 mg PO TID [facility] Last Admin: 12/05/18 09:15 Dose: 300 mg Guaifenesin (Robitussin) 100 mg PO Q4H PRN PRN Reason: Cough Last Admin: 12/05/18 09:15 Dose: 100 mg Vancomycin/Sodium Chloride (Vancomycin 1 Gm/Ns 200 Ml) 1 gm in 200 mls @ 133 mls/hr IVPB Q12H [facility]; Protocol Stop: 12/05/18 22:31 Last Admin: 12/05/18 10:08 Dose: 133 mls/hr Cefepime HCl (Maxipime Iv 2 Gm Premix) 2 gm in 100 mls @ 200 mls/hr IVPB Q8H [facility] ; Protocol Stop: 12/05/18 20:01 Last Admin: 12/05/18 04:28 Dose: 200 mls/hr Insulin Detemir (Levemir) 25 unit SC Q12 [facility] Last Admin: 12/05/18 09:15 Dose: Not Given Insulin Human Regular (Novolin R) 0 unit SC ACHS [facility]; Protocol Last Admin: 12/05/18 11:38 Dose: Not Given Lamivudine (Epivir) 300 mg PO DAILY [facility] Last Admin: 12/05/18 09:15 Dose: Not Given Methylprednisolone (Solu-Medrol) 30 mg 0.5 mg/kg (30 mg) IV BID [facility] Last Admin: 12/05/18 09:13 Dose: 30 mg Montelukast Sodium (Singulair) 10 mg PO HS [facility] Last Admin: 12/04/18 21:16 Dose: 10 mg Multivitamins (Hexavitamin) 1 tab PO DAILY [facility] Last Admin: 12/05/18 09:15 Dose: Not Given Oxycodone/Acetaminophen (Percocet 5/325 Mg Tab) 1 tab PO Q6H PRN PRN Reason: Pain, severe (8-10) Stop: 12/06/18 10:59 Last Admin: 12/05/18 00:10 Dose: 1 tab Raltegravir (Isentress) 400 mg PO BID [facility]; Protocol Last Admin: 12/05/18 09:15 Dose: 400 mg Physical Exam - Constitutional Appears: Non-toxic, No Acute Distress - Head Exam Head Exam: ATRAUMATIC, NORMOCEPHALIC - Eye Exam Eye Exam: EOMI, Normal appearance, PERRL - ENT Exam ENT Exam: Mucous Membranes Moist - Respiratory Exam Respiratory Exam: Rhonchi, Respiratory Distress - Cardiovascular Exam Cardiovascular Exam: REGULAR RHYTHM, +S1, +S2. absent: Gallop, Rubs, Systolic Murmur - GI/Abdominal Exam GI & Abdominal Exam: Normal Bowel Sounds, Soft. absent: Distended, Organ omegaly, Tenderness - Extremities Exam Extremities exam: Positive for: normal capillary refill, normal inspection, pedal pulses present. Negative for: pedal edema - Neurological Exam Neurological exam: Alert Additional comments: Oriented x2 - Skin Skin Exam: Dry, Intact, Warm Results - Vital Signs Recent Vital Signs: Last Vital Signs Temp 98.4 F 12/05/18 08:28 Pulse 85 12/05/18 11:20 Resp 18 12/05/18 08:28 BP 108/73 12/05/18 10:21 Pulse Ox 96 12/05/18 08:28 - Labs Result Diagrams: 12/04/18 07:40 12/04/18 07:40 Labs: Laboratory Results - last 24 hr 12/04/18 12/04/18 12/04/18 15:51 19:09 20:53 POC Glucose (mg/dL) 474 H* 346 H Lactic Acid Amylase 54 Lipase 147 12/05/18 12/05/18 12/05/18 01:58 06:49 11:18 POC Glucose (mg/dL) 352 H 374 H 122 H Lactic Acid Amylase Lipase 12/05/18 11:41 POC Glucose (mg/dL) Lactic Acid 1.5 Amylase Lipase Assessment & Plan - Assessment and Plan (Free Text) Assessment: 63 y o male with PMhx HIV, COPD, HTN, DM, Hep C, chronic pancreatitis, who presented to the ED with worsening sob. Pt reported at time that he was at home and felt that the room was too hot and thus felt short of breath. Was recently d ischarged from [facility] where he was treated for similar symptoms. Pt has hx known lung mass, s/p bronchoscopy with bx, brushing and bronchoalveolar lavage on 12/02/18. R upper lobe lung bx positive for non-small cell carcinoma, favor squamous cell carcinoma. R upper lobe brushings and washing positive for non-small cell carcinoma and SCC. Reason for ICU consult was for worsening respiratory distress as per staff. Pt transferred to ICU for further monitoring. R/o malignancy, aspiration PNA as etiologies of symptoms. Will place on BiPap prn, and if needed, intubate in ICU if necessary. Plan: Neuro: -AAOx2 -No gross deficits on exam -Head CT 12/01: No acute ICH. Mild age-appropriate atrophy and chronic white matter ischemic change. Otherwise unremarkable. -Psych consulted, Dr. Spangler, recs appreciated Cardio: -Hx HTN -Norvasc 5 mg daily -Lasix daily -Hemodynamically stable -EKG on admission: sinus tachycardia, possible L atrial enlargement Pulm: -Respiratory distress, may be 2/2 malignancy vs. aspiration -Titrate up to BiPap as needed, will intubate in ICU if pt desaturates -Recent CXR 12/02: No evidence of significant pneumothorax. Interval appearance of hazy opacity at R upper lobe may represent atelectasis or PNA. -Dr. Alfaro consulted, recs appreciated -S/p bronchoscopy 12/02 as noted above, bx results as noted above -Hx COPD -Duonebs q4h -Singulair -Bronchial washing cx 12/02 positive for Carmen albicans -Cefepime/Vanco GI: -Dr. Pagan consulted for abd pain, recs appreciated -Hx Hep C, chronic pancreatitis -Abd XR 12/04: R upper lobe mass concerning for malignancy - correlate clinically with prior pathology results. No evidence of mechanical bowel obstruction. Moderate stool retention. No free air seen please note prior CT chest report findings regarding liver lesions. -AFP, amylase, CA 19-9, CEA, Lipase ordered -Diabetic diet -Glucerna shakes bid -Pepcid -Utox pos for opiates ID: -Hx HIV -Abacavir, Raltegravir, Lamivudine -Clotrimazole started for oral thrush -Cefepime/Vanco -Tylenol prn for fevers -ID consulted for severe sepsis, Dr. Thompson, recs appreciated -Bronchial washing pos for Carmen -Blood and urine cxs NGTD -Neg flu swab -Leukocytosis trending up, cont to monitor -Afebrile, cont to monitor Heme: -H/H 9.2/29.7 -C/w ferrous gluconate Renal: -BUN/Cr 28/1.0 on 12/04, cont to trend -Trend I's/O's Endo: -Hx DM -Levemir 25 U q12h -ISS -Fingersticks q6h -Hypoglycemic protocol PPX: -Pepcid -SCDs CI'd 2/2 lower leg swelling Pt seen, examined with, and plan discussed with Dr. Alfaro, attending physician. Maikel Abdi DO PGY-1, [employer] Pager #[phone] <Wilbur Alfaro - Last Filed: 12/05/18 17:27> Meds - Medications Medications: Current Medications Abacavir Sulfate (Ziagen) 300 mg PO BID [facility]; Protocol Last Admin: 12/05/18 09:14 Dose: Not Given Acetaminophen (Tylenol 325mg Tab) 650 mg PO Q6 PRN PRN Reason: Pain, moderate (4-7) Last Admin: 12/03/18 12:48 Dose: 650 mg Albuterol/Ipratropium (Duoneb 3 Mg/0.5 Mg (3 Ml) Ud) 3 ml INH RQ4 [facility] Last Admin: 12/05/18 15:47 Dose: 3 ml Alprazolam (Xanax) 0.25 mg PO Q8 PRN PRN Reason: Anxiety Stop: 12/07/18 14:28 Last Admin: 12/05/18 06:40 Dose: 0.25 mg Amlodipine Besylate (Norvasc) 5 mg PO DAILY [facility] Last Admin: 12/05/18 09:15 Dose: Not Given Belladonna/Phenobarbital () 1 tab PO TID [facility] Clotrimazole (Mycelex Reilly) 10 mg MT 5XD [facility] Famotidine (Pepcid) 20 mg PO 1000 [facility] Last Admin: 12/05/18 09:15 Dose: Not Given Ferrous Gluconate (Fergon) 324 mg PO DAILY [facility] Last Admin: 12/05/18 09:15 Dose: Not Given Furosemide (Lasix) 20 mg PO DAILY [facility] Last Admin: 12/05/18 09:16 Dose: Not Given Gabapentin (Neurontin) 300 mg PO TID [facility] Last Admin: 12/05/18 14:56 Dose: 300 mg Guaifenesin (Robitussin) 100 mg PO Q4H PRN PRN Reason: Cough Last Admin: 12/05/18 15:04 Dose: 100 mg Vancomycin/Sodium Chloride (Vancomycin 1 Gm/Ns 200 Ml) 1 gm in 200 mls @ 133 mls/hr IVPB Q12H [facility]; Protocol Stop: 12/05/18 22:31 Last Admin: 12/05/18 10:08 Dose: 133 mls/hr Cefepime HCl (Maxipime Iv 2 Gm Premix) 2 gm in 100 mls @ 200 mls/hr IVPB Q8H [facility]; Protocol Stop: 12/05/18 20:01 Last Admin: 12/05/18 04:28 Dose: 200 mls/hr Insulin Detemir (Levemir) 25 unit SC Q12 [facility] Last Admin: 12/05/18 09:15 Dose: Not Given Insulin Human Regular (Novolin R) [address] [facility]; Protocol Last Admin: 12/05/18 17:00 Dose: Not Given Lamivudine (Epivir) 300 mg PO DAILY [facility] Last Admin: 12/05/18 09:15 Dose: Not Given Methylprednisolone (Solu-Medrol) 30 mg 0.5 mg/kg (30 mg) IV BID [facility] Last Admin: 12/05/18 09:13 Dose: 30 mg Montelukast Sodium (Singulair) 10 mg PO HS [facility] Last Admin: 12/04/18 21:16 Dose: 10 mg Multivitamins (Hexavitamin) 1 tab PO DAILY [facility] Last Admin: 12/05/18 09:15 Dose: Not Given Oxycodone/Acetaminophen (Percocet 5/325 Mg Tab) 1 tab PO Q6H PRN PRN Reason: Pain, severe (8-10) Stop: 12/06/18 10:59 Last Admin: 12/05/18 00:10 Dose: 1 tab Raltegravir (Isentress) 400 mg PO BID [facility]; Protocol Last Admin: 12/05/18 09:15 Dose: 400 mg Results - Vital Signs Recent Vital Signs: Last Vital Signs Temp 98.1 F 12/05/18 13:00 Pulse 104 H 12/05/18 15:51 Resp 18 12/05/18 08:28 BP 108/73 12/05/18 10:21 Pulse Ox 96 12/05/18 08:28 - Labs Result Diagrams: 12/04/18 07:40 12/04/18 07:40 Labs: Laboratory Results - last 24 hr 12/04/18 12/04/18 12/05/18 19:09 20:53 01:58 POC Glucose (mg/dL) 346 H 352 H Lactic Acid Amylase 54 Lipase 147 12/05/18 12/05/18 12/05/18 06:49 11:18 11:41 POC Glucose (mg/dL) 374 H 122 H Lactic Acid 1.5 Amylase Lipase Attending/Attestation - Attestation I have personally seen and examined this patient.: Yes I have fully participated in the care of the patient.: Yes I have reviewed all pertinent clinical information: Yes Notes (Text): 12/05/18 17:26 Patient seen and examined 63-year-old male transferred to intensive care unit for shortness of breath, lethargy and tachycardia Status post bronchoscopy consistent with non-small cell CA BiPAP IV steroids and nebulizer treatment Continue antibiotics Intubation if condition worsens Monitor heart rate and vitals
[2018-12-05] MEDS: Belladonna-Phenobarbital PO SCH ×2 (14:00→18:12)
[2018-12-05] MEDS ORDERED: Nystatin 100,000 Units/ml Oral Susp 5 ml UD PO SCH (15:30)
--- NOTE | 2018-12-05 17:15 | PN ---
DATE: 12/05/2018 LOCATION: 564, bed A. SUBJECTIVE: This is a 63-year-old male seen and examined in rounds initially for GI consultation on 12/04/2018, reexamined again today with intermittent period of generalized weakness and malaise, productive cough, shortness of breath on and off, had been on BiPAP mask with tachycardia before. The entire chart is reviewed including but not limited to the most recent lab and radiology study results, current and the previous medication list, current and the previous medical events, with reported recurrent complaint of midepigastric pain. Most recent lab results showed blood glucose level of 122 the latest, rest of lab results still pending; however, the patient is still having low hemoglobin and hematocrit with leukocytosis, but normal platelet count with low albumin, increased alkaline phosphatase. Recently done abdominal obstructive series x-ray, official report is seen indicative of right upper lobe mass concerning , but no evidence of bowel obstruction with also redundant fecal material. PHYSICAL EXAMINATION: GENERAL: A 63-year-old male, awake, alert and oriented, still complaining of some shortness of breath. VITAL SIGNS: Afebrile with pulse of 88, respiratory rate 20-22, and blood pressure of 112/72. HEENT: Showed pale, dry mucous membrane. Nonicteric sclerae. LUNGS: Few scattered crepitation. Decreased air entry at bases. HEART: Positive S1 and S2. ABDOMEN: Soft with mild generalized tenderness. No mass or organomegaly. No rebound tenderness or guarding. EXTREMITIES: Without significant clubbing, cyanosis or edema. NEUROLOGICAL: No reported new neurological deficits, sensory or motor. No reported new focal deficits. IMPRESSION: 1. Re-exacerbation of peptic ulcer disease. 2. Anemia. 3. Past medical history including but not limited to osteoarthritis, bronchitis with chronic obstructive pulmonary disease, poorly-controlled diabetes mellitus, human immunodeficiency virus, hepatitis C viral infection, hypertension with hyperlipidemia, and episode of pancreatitis in the past. 4. Known history of sleep apnea. SUGGESTIONS: 1. Agree with your plan. 2. Proton pump inhibitors. 3. Antireflux measure. 4. Sectional abdominal and pelvic CAT scan. 5. Further recommendation to follow. 6. No need for aggressive GI workup in the meantime. 7. Repeat cancer markers to be considered including PSA and CEA. 8. Serum lipase and amylase level. 9. We will follow up closely as needed. Sarai Reynolds MD
--- NOTE | 2018-12-05 22:57 | CP.PCM.PN ---
Subjective - Date & Time of Evaluation Date of Evaluation: 12/05/18 Time of Evaluation: 07:00 - Subjective Subjective: R upper lobe lung bx positive for non-small cell carcinoma, favor squamous cell carcinoma. R upper lobe brushings and washing positive for non-small cell carcinoma and SCC. Objective - Vital Signs/Intake and Output Vital Signs (last 24 hours): Temp Pulse Resp BP Pulse Ox 98.1 F 99 H 18 108/73 96 12/05/18 13:00 12/05/18 22:10 12/05/18 08:28 12/05/18 10:21 12/05/18 08:28 Intake and Output: 12/05/18 12/06/18 18:59 06:59 Intake Total 700 240 Output Total 980 Balance 700 -740 - Medications Medications: Current Medications Abacavir Sulfate (Ziagen) 300 mg PO BID [facility]; Protocol Last Admin: 12/05/18 17:48 Dose: 300 mg Acetaminophen (Tylenol 325mg Tab) 650 mg PO Q6 PRN PRN Reason: Pain, moderate (4-7) Last Admin: 12/03/18 12:48 Dose: 650 mg Albuterol/Ipratropium (Duoneb 3 Mg/0.5 Mg (3 Ml) Ud) 3 ml INH RQ4 [facility] Last Admin: 12/05/18 19:33 Dose: 3 ml Alprazolam (Xanax) 0.25 mg PO Q8 PRN PRN Reason: Anxiety Stop: 12/07/18 14:28 Last Admin: 12/05/18 06:40 Dose: 0.25 mg Amlodipine Besylate (Norvasc) 5 mg PO DAILY [facility] Last Admin: 12/05/18 09:15 Dose: Not Given Belladonna/Phenobarbital () 1 tab PO TID [facility] Last Admin: 12/05/18 18:12 Dose: 1 tab Clotrimazole (Mycelex Reilly) 10 mg MT 5XD [facility] Last Admin: 12/05/18 18:13 Dose: 10 mg Famotidine (Pepcid) 20 mg PO 1000 [facility] Last Admin: 12/05/18 09:15 Dose: Not Given Ferrous Gluconate (Fergon) 324 mg PO DAILY [facility] Last Admin: 12/05/18 09:15 Dose: Not Given Furosemide (Lasix) 20 mg PO DAILY [facility] Last Admin: 12/05/18 09:16 Dose: Not Given Gabapentin (Neurontin) 300 mg PO TID [facility] Last Admin: 12/05/18 17:42 Dose: 300 mg Guaifenesin (Robitussin) 100 mg PO Q4H PRN PRN Reason: Cough Last Admin: 12/05/18 15:04 Dose: 100 mg Insulin Detemir (Levemir) 25 unit SC Q12 [facility] Last Admin: 12/05/18 09:15 Dose: Not Given Insulin Human Regular (Novolin R) 0 unit SC ACHS [facility]; Protocol Last Admin: 12/05/18 17:00 Dose: Not Given Lamivudine (Epivir) 300 mg PO DAILY [facility] Last Admin: 12/05/18 09:15 Dose: Not Given Methylprednisolone (Solu-Medrol) 30 mg 0.5 mg/kg (30 mg) IV BID [facility] Last Admin: 12/05/18 17:43 Dose: 30 mg Montelukast Sodium (Singulair) 10 mg PO HS [facility] Last Admin: 12/04/18 21:16 Dose: 10 mg Multivitamins (Hexavitamin) 1 tab PO DAILY [facility] Last Admin: 12/05/18 09:15 Dose: Not Given Oxycodone/Acetaminophen (Percocet 5/325 Mg Tab) 1 tab PO Q6H PRN PRN Reason: Pain, severe (8-10) Stop: 12/06/18 10:59 Last Admin: 12/05/18 00:10 Dose: 1 tab Raltegravir (Isentress) 400 mg PO BID [facility]; Protocol Last Admin: 12/05/18 17:47 Dose: 400 mg - Labs Labs: 12/04/18 07:40 12/04/18 07:40 PT 18.6 SECONDS (9.7-12.2) H 11/30/18 09:35 INR 1.7 11/30/18 09:35 APTT 40 SECONDS (21-34) H 11/30/18 09:35 - Constitutional Appears: Cachectic, Chronically Ill - Head Exam Head Exam: NORMOCEPHALIC - Eye Exam Eye Exam: absent: Scleral icterus - ENT Exam ENT Exam: Mucous Membranes Dry - Neck Exam Neck Exam: absent: Lymphadenopathy - Respiratory Exam Respiratory Exam: Decreased Breath Sounds, Prolonged Expiratory Phase - Cardiovascular Exam Cardiovascular Exam: REGULAR RHYTHM, +S1, +S2 - Extremities Exam Extremities Exam: Pedal Edema - Back Exam Back Exam: absent: CVA tenderness (L), CVA tenderness (R) - Neurological Exam Neurological Exam: Altered Assessment and Plan (1) COPD exacerbation Status: Acute (2) Dyspnea Status: Acute (3) Sepsis Status: Acute (4) ARF (acute renal failure) Status: Acute (5) HIV (human immunodeficiency virus infection) Status: Acute - Assessment and Plan (Free Text) Assessment: cont iv antibiotics poor prognosis
[2018-12-06] MEDS: Albuterol-Ipratrop 3 mg / 0.5 (3 ml) UD INH SCH ×6 (00:51→19:35)
[2018-12-06 05:57] LABS: BASO % 0.1 % (0.0-2.0); HEMOGLOBIN 8.1 g/dL (12.0-18.0); LYMPH # 0.9 K/uL (1.0-4.3); LYMPH % 6.2 % (20.0-40.0); MEAN CELL VOLUME 83.8 fL (80.0-94.0); MEAN CORPUSCULAR HEMOGLOBIN 26.4 pg (27.0-31.0); MEAN CORPUSCULAR HGB CONC 31.5 g/dL (33.0-37.0); MONO # 0.6 K/uL (0.0-0.8); MONO % 4.7 % (0.0-10.0); NEUT # 12.4 K/uL (1.8-7.0); NRBC % 0.1 % (0.0-2.0); PLATELET COUNT 373 K/uL (130-400); RBC 3.08 Mil/uL (4.40-5.90); RED CELL DISTRIBUTION WIDTH 17.4 % (11.5-14.5); WHITE BLOOD COUNT 13.9 K/uL (4.8-10.8)
[2018-12-06 05:57] LABS: ABG ALLEN TEST POS; ARTERIAL BLOOD GAS HCO3 31.1 mmol/L (21-28); ARTERIAL BLOOD GAS O2 SAT 100.2 % (95-98); ARTERIAL BLOOD GAS PCO2 42 mm/Hg (35-45); ARTERIAL BLOOD GAS PH 7.49 (7.35-7.45); ARTERIAL BLOOD GAS PO2 166 mm/Hg (80-100); ARTERIAL BLOOD GAS TCO2 33.3 mmol/L (22-28)
[2018-12-06 06:17] LABS: ALT/SGPT 12 U/L (21-72); AST/SGOT 19 U/L (17-59); BLOOD UREA NITROGEN 31 mg/dL (9-20); CALCIUM 8.6 mg/dl (8.6-10.4); GFR NON-AFRICAN AMERICAN > 60
[2018-12-06] MEDS: (Novolin R) Insulin Human Regular 100 units/ml vial SC SCH ×4 (08:17→21:35)
[2018-12-06] MEDS: LIPASE/PROTEASE/AMYLASE 4,200 U ECC PO SCH ×3 (08:18→16:47)
[2018-12-06 08:35] LABS: LYMPHOCYTE 2 % (20-40); MONOCYTE 3 % (0-10); NEUTROPHIL 95 % (50-75); PLATELET ESTIMATE NORMAL (NORMAL); TOTAL CELLS COUNTED 100
[2018-12-06 08:37] LABS: ANISOCYTOSIS SLIGHT; HYPOCHROMIC SLIGHT
[2018-12-06 08:38] LABS: POLYCHROMIC SLIGHT; TARGET CELLS SLIGHT
[2018-12-06] MEDS: Belladonna-Phenobarbital PO SCH ×3 (09:50→17:29)
[2018-12-06] MEDS: MethylPREDNISolone 40 mg Vial IV SCH ×2 (09:52→17:06)
[2018-12-06] MEDS: Insulin Detemir 100 units/ml Vial (Levemir) SC SCH ×2 (10:05→21:36)
[2018-12-06] MEDS: Multiple Vitamins Tab PO SCH (10:11)
--- NOTE | 2018-12-06 10:45 | CP.CCUPN ---
<Skylar Wilson - Last Filed: 12/06/18 10:44> CCU Subjective - Physician Review Subjective (Free Text): 12/06/18 08:17 ICU progress note for Dr. Alfaro Pt seen and examined this am at the bedside. Was reportedly was intermittently on BIPAP overnight. Currently on Nasal Cannula 4 L saturation 94%. States his breathing is much improved. Additionally adds that the heat often exacerbates his breathing. Complains of productive cough (noted to be coughing up white frothy sputum, no blood). Also complains of abdominal pain stating that his "pancreas is bleeding." Otherwise, denies chest pain, fever/chills, LE edema, calf pain, n/v, diarrhea, or dysuria. Critical Care Time Spent (in minutes): 35 CCU Objective - Vital Signs / Intake & Output Vital Signs (Last 4 hours): Vital Signs Pulse 12/06/18 06:08 95 H 12/06/18 03:45 90 Intake and Output (Last 8hrs): Intake & Output 12/05/18 12/06/18 12/06/18 22:59 06:59 14:59 Intake Total 940 580 Output Total 980 250 Balance -40 330 Weight 150 lb 0.26 oz Intake: Intake, IV Amount 100 200 Left Upper arm 100 200 Oral 840 380 Output: Urine 980 250 Urine, Voided 980 250 Other: # Voids Urine, Voided 1 0 # Bowel Movements 0 - Physical Exam Physical Exam Limitations: Negative for: Altered Mental Status Head: Positive for: Normocephalic Pupils: Positive for: PERRL Extroacular Muscles: Positive for: EOMI Conjunctiva: Positive for: Normal Mouth: Positive for: Moist Mucous Membranes Pharnyx: Positive for: Normal Respiratory/Chest: Positive for: Wheezes (End expiratory scattered), Decreased Breath Sounds (course), Rhonchi (Diffuse, partially cleares with cough ). Negative for: Respiratory Distress, Accessory Muscle Use, Rales, Retracting, Tachypneic Cardiovascular: Positive for: Regular Rate and Rhythm, Normal S1, S2 Abdomen: Positive for: Tenderness (Epigastric region ), Normal Bowel Sounds. Negative for: Distention, Peritoneal Signs, Rebound, Guarding, Hernias Upper Extremity: Positive for: Normal Inspection, NORMAL PULSES, Capillary Refill < 2s, Other (Scattered ecchymosis ) Lower Extremity: Positive for: Normal Inspection, NORMAL PULSES, Capillary Refill < 2 s. Negative for: Edema, CALF TENDERNESS Neurological: Positive for: Speech Normal Skin: Positive for: Normal Color Psychiatric: Positive for: Alert, Oriented x 3 - Medications Active Medications: Active Medications Generic Name Dose Route Start Last Admin Trade Name Freq PRN Reason Stop Dose Admin Abacavir Sulfate 300 mg 11/30/18 18:00 12/05/18 17:48 Ziagen PO 300 mg BID LAUAR Administration Protocol Acetaminophen 650 mg 12/02/18 14:19 12/03/18 12:48 Tylenol 325mg Tab PO 650 mg Q6 PRN Administration Pain, moderate (4-7) Albuterol/Ipratropium 3 ml 11/30/18 16:00 12/06/18 03:45 Duoneb 3 Mg/0.5 Mg (3 Ml) Ud INH 3 ml RQ4 LAURA Administration Alprazolam 0.25 mg 11/30/18 14:27 12/05/18 06:40 Xanax PO 12/07/18 14:28 0.25 mg Q8 PRN Administration Anxiety Amlodipine Besylate 5 mg 11/30/18 14:30 12/05/18 09:15 Norvasc PO Not Given DAILY [facility] Belladonna/Phenobarbital 1 tab 12/05/18 14:00 12/05/18 18:12 PO 1 tab TID LAURA Administration Clotrimazole 10 mg 12/05/18 17:00 12/05/18 20:00 Mycelex Reilly MT Not Given 5XD [facility] Famotidine 20 mg 12/01/18 10:00 12/05/18 09:15 Pepcid PO Not Given 1000 [facility] Ferrous Gluconate 324 mg 12/02/18 13:00 12/05/18 09:15 Fergon PO Not Given DAILY [facility] Furosemide 20 mg 11/30/18 14:30 12/05/18 09:16 Lasix PO Not Given DAILY [facility] Gabapentin 300 mg 11/30/18 18:00 12/05/18 17:42 Neurontin PO 300 mg TID LAURA Administration Guaifenesin 100 mg 12/01/18 18:05 12/05/18 15:04 Robitussin PO 100 mg Q4H PRN Administration Cough Insulin Detemir 25 unit 12/01/18 22:00 12/05/18 22:00 Levemir SC 25 units Q12 LAURA Administration Insulin Human Regular 0 unit 11/30/18 17:00 12/05/18 22:00 Novolin R SC 2 units ACHS LAURA Administration Protocol Lamivudine 300 mg 12/01/18 10:00 12/05/18 09:15 Epivir PO Not Given DAILY LAURA Methylprednisolone 30 mg 12/03/18 18:00 12/05/18 17:43 Solu-Medrol 0.5 mg/kg (30 mg) 30 mg IV Administration BID LAURA Montelukast Sodium 10 mg 11/30/18 22:00 12/05/18 22:00 Singulair PO 10 mg HS LAURA Administration Multivitamins 1 tab 12/02/18 13:00 12/05/18 09:15 Hexavitamin PO Not Given DAILY LAURA Oxycodone/Acetaminophen 1 tab 12/03/18 16:00 12/05/18 00:10 Percocet 5/325 Mg Tab PO 12/06/18 10:59 1 tab Q6H PRN Administration Pain, severe (8-10) Raltegravir 400 mg 11/30/18 18:00 12/05/18 17:47 Isentress PO 400 mg BID LAURA Administration Protocol - Patient Studies Lab Studies: Microbiology Studies 12/02/18 10:49 Mycobacterial Culture - Preliminary Other: Please Indicate 11/30/18 12:15 Blood Culture - Final Blood NO GROWTH AFTER 5 DAYS Gram Stain - Final TEST NOT PERFORMED 11/30/18 12:15 Blood Culture - Final Blood NO GROWTH AFTER 5 DAYS Gram Stain - Final TEST NOT PERFORMED 12/02/18 10:49 Bronchial Culture - Final Bronchial Washings Carmen Albicans Lab Studies 12/06/18 12/06/18 12/06/18 Range/Units 05:52 05:52 05:14 WBC 13.9 H (4.8-10.8) K/uL RBC 3.08 L (4.40-5.90) Mil/uL Hgb 8.1 L (12.0-18.0) g/dL Hct 25.8 L (35.0-51.0) % MCV 83.8 (80.0-94.0) fL MCH 26.4 L (27.0-31.0) pg MCHC 31.5 L (33.0-37.0) g/dL RDW 17.4 H (11.5-14.5) % Plt Count 373 (130-400) K/uL MPV 8.0 (7.2-11.7) fL Neut % (Auto) 89.0 H (50.0-75.0) % Lymph % (Auto) 6.2 L (20.0-40.0) % Lincoln % (Auto) 4.7 (0.0-10.0) % Eos % (Auto) 0.0 (0.0-4.0) % Baso % (Auto) 0.1 (0.0-2.0) % Neut # (Auto) 12.4 H (1.8-7.0) K/uL Lymph # (Auto) 0.9 L (1.0-4.3) K/uL Lincoln # (Auto) 0.6 (0.0-0.8) K/uL Eos # (Auto) 0.0 (0.0-0.7) K/uL Baso # (Auto) 0.0 (0.0-0.2) K/uL Puncture Site L rad pCO2 42 (35-45) mm/Hg pO2 166 H (80-100) mm/Hg HCO3 31.1 H (21-28) mmol/L ABG pH 7.49 H (7.35-7.45) ABG Total CO2 33.3 H (22-28) mmol/L ABG O2 Saturation 100.2 H (95-98) % ABG Base Excess 7.8 H (-2.0-3.0) mmol/L Narinder Test Pos ABG Potassium 3.8 (3.6-5.2) mmol/L A-a O2 Difference 138.0 mm/Hg Respiratory Index 0.8 Sodium 134 137.0 (132-148) mmol/l Chloride 95 L 102.0 (98-107) mmol/L Glucose 310 H (75-110) mg/dl Lactate 1.2 (0.7-2.1) mmol/L Vent Mode Bipap FiO2 50.0 % Inspiratory BiPAP 14 Expiratory BiPAP 7 Potassium 3.8 (3.6-5.2) mmol/L Carbon Dioxide 33 H (22-30) mmol/L Anion Gap 10 (10-20) BUN 31 H (9-20) mg/dL Creatinine 0.8 (0.8-1.5) mg/dL Est GFR ( Amer) > 60 Est GFR (Non-Af Amer) > 60 POC Glucose (mg/dL) (65-110) mg/dL Random Glucose 311 H D (75-110) mg/dL Lactic Acid (0.7-2.1) mmol/L Calcium 8.6 (8.6-10.4) mg/dl Phosphorus 3.0 (2.5-4.5) mg/dL Magnesium 2.4 H (1.6-2.3) mg/dL Total Bilirubin 0.3 (0.2-1.3) mg/dL AST 19 (17-59) U/L ALT 12 L D (21-72) U/L Alkaline Phosphatase 243 H (38-126) U/L Total Protein 6.2 L (6.3-8.3) g/dL Albumin 3.0 L (3.5-5.0) g/dL Globulin 3.2 (2.2-3.9) gm/dL Albumin/Globulin Ratio 1.0 (1.0-2.1) Arterial Blood Potassium 3.8 (3.6-5.2) mmol/L 12/05/18 12/05/18 Range/Units 11:41 11:18 WBC (4.8-10.8) K/uL RBC (4.40-5.90) Mil/uL Hgb (12.0-18.0) g/dL Hct (35.0-51.0) % MCV (80.0-94.0) fL MCH (27.0-31.0) pg MCHC (33.0-37.0) g/dL RDW (11.5-14.5) % Plt Count (130-400) K/uL MPV (7.2-11.7) fL Neut % (Auto) (50.0-75.0) % Lymph % (Auto) (20.0-40.0) % Lincoln % (Auto) (0.0-10.0) % Eos % (Auto) (0.0-4.0) % Baso % (Auto) (0.0-2.0) % Neut # (Auto) (1.8-7.0) K/uL Lymph # (Auto) (1.0-4.3) K/uL Lincoln # (Auto) (0.0-0.8) K/uL Eos # (Auto) (0.0-0.7) K/uL Baso # (Auto) (0.0-0.2) K/uL Puncture Site pCO2 (35-45) mm/Hg pO2 (80-100) mm/Hg HCO3 (21-28) mmol/L ABG pH (7.35-7.45) ABG Total CO2 (22-28) mmol/L ABG O2 Saturation (95-98) % ABG Base Excess (-2.0-3.0) mmol/L Narinder Test ABG Potassium (3.6-5.2) mmol/L A-a O2 Difference mm/Hg Respiratory Index Sodium (132-148) mmol/l Chloride (98-107) mmol/L Glucose (75-110) mg/dl Lactate (0.7-2.1) mmol/L Vent Mode FiO2 % Inspiratory BiPAP Expiratory BiPAP Potassium (3.6-5.2) mmol/L Carbon Dioxide (22-30) mmol/L Anion Gap (10-20) BUN (9-20) mg/dL Creatinine (0.8-1.5) mg/dL Est GFR ( Amer) Est GFR (Non-Af Amer) POC Glucose (mg/dL) 122 H (65-110) mg/dL Random Glucose (75-110) mg/dL Lactic Acid 1.5 (0.7-2.1) mmol/L Calcium (8.6-10.4) mg/dl Phosphorus (2.5-4.5) mg/dL Magnesium (1.6-2.3) mg/dL Total Bilirubin (0.2-1.3) mg/dL AST (17-59) U/L ALT (21-72) U/L Alkaline Phosphatase (38-126) U/L Total Protein (6.3-8.3) g/dL Albumin (3.5-5.0) g/dL Globulin (2.2-3.9) gm/dL Albumin/Globulin Ratio (1.0-2.1) Arterial Blood Potassium (3.6-5.2) mmol/L Laboratory Results - last 24 hr 12/05/18 12/05/18 12/06/18 11:18 11:41 05:14 WBC RBC Hgb Hct MCV MCH MCHC RDW Plt Count MPV Neut % (Auto) Lymph % (Auto) Lincoln % (Auto) Eos % (Auto) Baso % (Auto) Neut # (Auto) Lymph # (Auto) Lincoln # (Auto) Eos # (Auto) Baso # (Auto) Puncture Site L rad pCO2 42 pO2 166 H HCO3 31.1 H ABG pH 7.49 H ABG Total CO2 33.3 H ABG O2 Saturation 100.2 H ABG Base Excess 7.8 H Narinder Test Pos ABG Potassium 3.8 A-a O2 Difference 138.0 Respiratory Index 0.8 Sodium 137.0 Chloride 102.0 Glucose 310 H Lactate 1.2 Vent Mode Bipap FiO2 50.0 Inspiratory BiPAP 14 Expiratory BiPAP 7 Potassium Carbon Dioxide Anion Gap BUN Creatinine Est GFR ( Amer) Est GFR (Non-Af Amer) POC Glucose (mg/dL) 122 H Random Glucose Lactic Acid 1.5 Calcium Phosphorus Magnesium Total Bilirubin AST ALT Alkaline Phosphatase Total Protein Albumin Globulin Albumin/Globulin Ratio Arterial Blood Potassium 3.8 12/06/18 12/06/18 05:52 05:52 WBC 13.9 H RBC 3.08 L Hgb 8.1 L Hct 25.8 L MCV 83.8 MCH 26.4 L MCHC 31.5 L RDW 17.4 H Plt Count 373 MPV 8.0 Neut % (Auto) 89.0 H Lymph % (Auto) 6.2 L Lincoln % (Auto) 4.7 Eos % (Auto) 0.0 Baso % (Auto) 0.1 Neut # (Auto) 12.4 H Lymph # (Auto) 0.9 L Lincoln # (Auto) 0.6 Eos # (Auto) 0.0 Baso # (Auto) 0.0 Puncture Site pCO2 pO2 HCO3 ABG pH ABG Total CO2 ABG O2 Saturation ABG Base Excess Narinder Test ABG Potassium A-a O2 Difference Respiratory Index Sodium 134 Chloride 95 L Glucose Lactate Vent Mode FiO2 Inspiratory BiPAP Expiratory BiPAP Potassium 3.8 Carbon Dioxide 33 H Anion Gap 10 BUN 31 H Creatinine 0.8 Est GFR ( Amer) > 60 Est GFR (Non-Af Amer) > 60 POC Glucose (mg/dL) Random Glucose 311 H D Lactic Acid Calcium 8.6 Phosphorus 3.0 Magnesium 2.4 H Total Bilirubin 0.3 AST 19 ALT 12 L D Alkaline Phosphatase 243 H Total Protein 6.2 L Albumin 3.0 L Globulin 3.2 Albumin/Globulin Ratio 1.0 Arterial Blood Potassium Radiology Impressions: Radiology Impressions Abdomen Obstructive Series X-ray 12/04/18 17:58 IMPRESSION: Right upper lobe mass concerning for malignancy-correlate clinically with prior pathology results. No evidence of mechanical bowel obstruction. Moderate stool retention. No free air seen please note prior CT chest report findings regarding liver lesions. Fingerstick Blood Sugar Results: 339 Critical Care Progress Note - Nutrition Nutrition: Nutrition Category Date Time Status Diabetic [Consistent Carbohydrate] [DIET] Diets 12/02/18 Lunch Active Assessment/Plan - Assessment and Plan (Free Text) Assessment: 63 y o male with PMhx of Lung Mass (Pathology from 12/04 reports Non Small Cell Carcinoma, favoring Squamous Cell Carcinoma), COPD, HTN, DM, Hep C, chronic pancreatitis, who presented to the ED with worsening sob. Pt reported at time that he was at home and felt that the room was too hot and thus felt short of breath. Was admitted to ICU for monitoring of respiratory status. Was placed on BIPAP overnight. Neuro - AAO x2 (name and place only) - No gross neurological deficits - Psych Consulted, Dr. Spangler. Unspecified Anxiety disorder - Head CT 12/01: No acute intracranial hemorrhage. Age related Atrophy - Xanax prn Cardio - Hemodynamically stable w/ slight tachycarida in 95-110 (Sinus) - C/W Norvasc, Metroprolol, and Lasix Pulm - Respiratory distress, slightly improved. Will continue to monitor respiratory status. - Etiology likely multifactorial: COPD exac vs Pneumonia (Aspiration?) vs Lung Ca - ABG (12/06): Respiratory Alkalosis w/ concurrent Metabolic Alkalosis - Chest X-Ray 11/30-Interstitial infiltrate or edema. More focal rounded opacities possibly multifocal consolidations however neoplasm cannot be excluded. - Repeat Cxray today: pending image - Bronchodilators treatments scheduled q4h - Singulair daily - Robitussin prn - Methylprednisolone 30mg IV BID GI - Dr. Pagan consulted for abd pain, recs appreciated - Abd XR 12/04: R upper lobe mass concerning for malignancy - correlate clinically with prior pathology results. No evidence of mechanical bowel obstruction. Moderate stool retention. No free air seen please note prior CT chest report findings regarding liver lesions. - Hx of Hep C and Chronic Pancreatitis - AFP, amylase, CA 19-9, CEA, Lipase ordered - Diabetic diet, Glucerna shakes bid - Pepcid - C/W Pancrealipase Renal - Net I/O in last 24H 1230/1300: -70 - BUN/Cr 31/0.8 on 12/05 - Assess volume status daily - Monitor I's/O's ID - Sepsis: HR >90, WBC 13.9, (+) Pneumonia on Cxray - Bronchial washing CX 12/02 positive for Carmne albicans - C/W Cefepime, Vanco, Mycelex - ID, Dr. Thompson, on board. Recs appreciated Heme/Onc - Hg/Hct 8.1/25.8 (chronically anemic), Normocytic - Ferrous Sulfate daily - Platelet 373 - HIV, on HAART therapy - R. Upper lobe biopsy (12/04): NSCL favoring SCC. Likely metastatic as liver lesion seen in prior CT reports - F/U CEA, CA 19-9, AFP Endocrine - Diabetic, Hga1c 9.1 - Accuchecks in 300's - Detemir 25mg q12 - ISS, Hypoglycemic protocol, Accucheck ACHS PPX: -Pepcid po for GI ppx -Lovenox daily for DVT oox Pt seen, examined with, and plan discussed with Dr. Alfaro, attending physician. Skylar Wilson, PGY2 <Wilbur Alfaro S - Last Filed: 12/06/18 15:31> CCU Objective - Vital Signs / Intake & Output Intake and Output (Last 8hrs): Intake & Output 12/06/18 12/06/18 12/06/18 06:59 14:59 22:59 Intake Total 580 880 Output Total 250 680 Balance 330 200 Weight 150 lb 0.26 oz Intake: Intake, IV Amount 200 Left Upper arm 200 Oral 380 880 Output: Urine 250 680 Urine, Voided 250 680 Other: # Voids Urine, Voided 0 1 # Bowel Movements 0 - Medications Active Medications: Active Medications Generic Name Dose Route Start Last Admin Trade Name Freq PRN Reason Stop Dose Admin Abacavir Sulfate 300 mg 11/30/18 18:00 12/06/18 10:00 Ziagen PO 300 mg BID LAURA Administration Protocol Acetaminophen 650 mg 12/02/18 14:19 12/03/18 12:48 Tylenol 325mg Tab PO 650 mg Q6 PRN Administration Pain, moderate (4-7) Albuterol/Ipratropium 3 ml 11/30/18 16:00 12/06/18 11:04 Duoneb 3 Mg/0.5 Mg (3 Ml) Ud INH 3 ml RQ4 LAURA Administration Alprazolam 0.25 mg 11/30/18 14:27 12/06/18 09:49 Xanax PO 12/07/18 14:28 0.25 mg Q8 PRN Administration Anxiety Amlodipine Besylate 5 mg 11/30/18 14:30 12/06/18 09:51 Norvasc PO 5 mg DAILY LAURA Administration Belladonna/Phenobarbital 1 tab 12/05/18 14:00 12/06/18 13:26 PO 1 tab TID LAURA Administration Clotrimazole 10 mg 12/05/18 17:00 12/06/18 12:04 Mycelex Reilly MT 10 mg 5XD LAURA Administration Enoxaparin Sodium 40 mg 12/07/18 10:00 Lovenox SC DAILY LAURA Famotidine 20 mg 12/01/18 10:00 12/06/18 09:54 Pepcid PO 20 mg 1000 LAURA Administration Ferrous Gluconate 324 mg 12/02/18 13:00 12/06/18 09:52 Fergon PO 324 mg DAILY LAURA Administration Furosemide 20 mg 11/30/18 14:30 12/06/18 09:52 Lasix PO 20 mg DAILY LAURA Administration Gabapentin 300 mg 11/30/18 18:00 12/06/18 10:05 Neurontin PO 300 mg TID LAURA Administration Guaifenesin 100 mg 12/01/18 18:05 12/06/18 13:26 Robitussin PO 100 mg Q4H PRN Administration Cough Insulin Detemir 25 unit 12/01/18 22:00 12/06/18 10:05 Levemir SC 25 units Q12 LAURA Administration Insulin Human Regular 0 unit 11/30/18 17:00 12/06/18 12:03 Novolin R SC 4 units ACHS LAURA Administration Protocol Lamivudine 300 mg 12/01/18 10:00 12/06/18 10:09 Epivir PO 300 mg DAILY LAURA Administration Methylprednisolone 30 mg 12/03/18 18:00 12/06/18 09:52 Solu-Medrol 0.5 mg/kg (30 mg) 30 mg IV Administration BID [facility] Montelukast Sodium 10 mg 11/30/18 22:00 12/05/18 22:00 Singulair PO 10 mg HS LAURA Administration Multivitamins 1 tab 12/02/18 13:00 12/06/18 10:11 Hexavitamin PO 1 tab DAILY LAURA Administration Raltegravir 400 mg 11/30/18 18:00 12/06/18 10:09 Isentress PO 400 mg BID LAURA Administration Protocol - Patient Studies Lab Studies: Microbiology Studies 12/05/18 11:00 Blood Culture - Preliminary Blood-Venous NO GROWTH AFTER 24 HOURS 12/02/18 10:49 Fungal Culture - Preliminary Bronchial Washings 12/02/18 10:49 Mycobacterial Culture - Preliminary Other: Please Indicate 11/30/18 12:15 Blood Culture - Final Blood NO GROWTH AFTER 5 DAYS Gram Stain - Final TEST NOT PERFORMED 11/30/18 12:15 Blood Culture - Final Blood NO GROWTH AFTER 5 DAYS Gram Stain - Final TEST NOT PERFORMED 12/02/18 10:49 Bronchial Culture - Final Bronchial Washings Carmen Albicans Lab Studies 12/06/18 12/06/18 12/06/18 Range/Units 05:52 05:52 05:14 WBC 13.9 H (4.8-10.8) K/uL RBC 3.08 L (4.40-5.90) Mil/uL Hgb 8.1 L (12.0-18.0) g/dL Hct 25.8 L (35.0-51.0) % MCV 83.8 (80.0-94.0) fL MCH 26.4 L (27.0-31.0) pg MCHC 31.5 L (33.0-37.0) g/dL RDW 17.4 H (11.5-14.5) % Plt Count 373 (130-400) K/uL MPV 8.0 (7.2-11.7) fL Neut % (Auto) 89.0 H (50.0-75.0) % Lymph % (Auto) 6.2 L (20.0-40.0) % Lincoln % (Auto) 4.7 (0.0-10.0) % Eos % (Auto) 0.0 (0.0-4.0) % Baso % (Auto) 0.1 (0.0-2.0) % Neut # (Auto) 12.4 H (1.8-7.0) K/uL Lymph # (Auto) 0.9 L (1.0-4.3) K/uL Lincoln # (Auto) 0.6 (0.0-0.8) K/uL Eos # (Auto) 0.0 (0.0-0.7) K/uL Baso # (Auto) 0.0 (0.0-0.2) K/uL Neutrophils % (Manual) 95 H (50-75) % Lymphocytes % (Manual) 2 L (20-40) % Monocytes % (Manual) 3 (0-10) % Platelet Estimate Normal (NORMAL) Polychromasia Slight Hypochromasia (manual) Slight Anisocytosis (manual) Slight Target Cells Slight Puncture Site L rad pCO2 42 (35-45) mm/Hg pO2 166 H (80-100) mm/Hg HCO3 31.1 H (21-28) mmol/L ABG pH 7.49 H (7.35-7.45) ABG Total CO2 33.3 H (22-28) mmol/L ABG O2 Saturation 100.2 H (95-98) % ABG Base Excess 7.8 H (-2.0-3.0) mmol/L Narinder Test Pos ABG Potassium 3.8 (3.6-5.2) mmol/L A-a O2 Difference 138.0 mm/Hg Respiratory Index 0.8 Sodium 134 137.0 (132-148) mmol/l Chloride 95 L 102.0 (98-107) mmol/L Glucose 310 H (75-110) mg/dl Lactate 1.2 (0.7-2.1) mmol/L Vent Mode Bipap FiO2 50.0 % Inspiratory BiPAP 14 Expiratory BiPAP 7 Potassium 3.8 (3.6-5.2) mmol/L Carbon Dioxide 33 H (22-30) mmol/L Anion Gap 10 (10-20) BUN 31 H (9-20) mg/dL Creatinine 0.8 (0.8-1.5) mg/dL Est GFR ( Amer) > 60 Est GFR (Non-Af Amer) > 60 Random Glucose 311 H D (75-110) mg/dL Calcium 8.6 (8.6-10.4) mg/dl Phosphorus 3.0 (2.5-4.5) mg/dL Magnesium 2.4 H (1.6-2.3) mg/dL Total Bilirubin 0.3 (0.2-1.3) mg/dL AST 19 (17-59) U/L ALT 12 L D (21-72) U/L Alkaline Phosphatase 243 H (38-126) U/L Total Protein 6.2 L (6.3-8.3) g/dL Albumin 3.0 L (3.5-5.0) g/dL Globulin 3.2 (2.2-3.9) gm/dL Albumin/Globulin Ratio 1.0 (1.0-2.1) Arterial Blood Potassium 3.8 (3.6-5.2) mmol/L Laboratory Results - last 24 hr 12/06/18 12/06/18 12/06/18 05:14 05:52 05:52 WBC 13.9 H RBC 3.08 L Hgb 8.1 L Hct 25.8 L MCV 83.8 MCH 26.4 L MCHC 31.5 L RDW 17.4 H Plt Count 373 MPV 8.0 Neut % (Auto) 89.0 H Lymph % (Auto) 6.2 L Lincoln % (Auto) 4.7 Eos % (Auto) 0.0 Baso % (Auto) 0.1 Neut # (Auto) 12.4 H Lymph # (Auto) 0.9 L Lincoln # (Auto) 0.6 Eos # (Auto) 0.0 Baso # (Auto) 0.0 Neutrophils % (Manual) 95 H Lymphocytes % (Manual) 2 L Monocytes % (Manual) 3 Platelet Estimate Normal Polychromasia Slight Hypochromasia (manual) Slight Anisocytosis (manual) Slight Target Cells Slight Puncture Site L rad pCO2 42 pO2 166 H HCO3 31.1 H ABG pH 7.49 H ABG Total CO2 33.3 H ABG O2 Saturation 100.2 H ABG Base Excess 7.8 H Narinder Test Pos ABG Potassium 3.8 A-a O2 Difference 138.0 Respiratory Index 0.8 Sodium 137.0 134 Chloride 102.0 95 L Glucose 310 H Lactate 1.2 Vent Mode Bipap FiO2 50.0 Inspiratory BiPAP 14 Expiratory BiPAP 7 Potassium 3.8 Carbon Dioxide 33 H Anion Gap 10 BUN 31 H Creatinine 0.8 Est GFR ( Amer) > 60 Est GFR (Non-Af Amer) > 60 Random Glucose 311 H D Calcium 8.6 Phosphorus 3.0 Magnesium 2.4 H Total Bilirubin 0.3 AST 19 ALT 12 L D Alkaline Phosphatase 243 H Total Protein 6.2 L Albumin 3.0 L Globulin 3.2 Albumin/Globulin Ratio 1.0 Arterial Blood Potassium 3.8 Critical Care Progress Note - Nutrition Nutrition: Nutrition Category Date Time Status Diabetic [Consistent Carbohydrate] [DIET] Diets 12/02/18 Lunch Active Attending/Attestation - Attestation I have personally seen and examined this patient.: Yes I have fully participated in the care of the patient.: Yes I have reviewed all pertinent clinical information: Yes Notes (Text): 12/06/18 15:30 Patient seen and examined in the intensive care unit. Case discussed with housestaff in the morning rounds. Patient remains on BiPAP Awake and responsive Non-small cell carcinoma but poor candidate for chemo/radiation/surgery Continue nebulizer treatment and steroids and antibiotics
--- NOTE | 2018-12-06 11:19 | CP.PCM.PN ---
Subjective - Date & Time of Evaluation Date of Evaluation: 12/06/18 Time of Evaluation: 11:17 - Subjective Subjective: seen in icu sob coughing abdomina pain Objective - Vital Signs/Intake and Output Vital Signs (last 24 hours): Temp Pulse Resp BP Pulse Ox 98.8 F 107 H 18 133/66 95 12/06/18 08:00 12/06/18 11:04 12/06/18 00:00 12/06/18 09:52 12/05/18 20:00 Intake and Output: 12/06/18 12/06/18 06:59 18:59 Intake Total 920 500 Output Total 1230 380 Balance -310 120 - Medications Medications: Current Medications Abacavir Sulfate (Ziagen) 300 mg PO BID [facility]; Protocol Last Admin: 12/06/18 10:00 Dose: 300 mg Acetaminophen (Tylenol 325mg Tab) 650 mg PO Q6 PRN PRN Reason: Pain, moderate (4-7) Last Admin: 12/03/18 12:48 Dose: 650 mg Albuterol/Ipratropium (Duoneb 3 Mg/0.5 Mg (3 Ml) Ud) 3 ml INH RQ4 [facility] Last Admin: 12/06/18 11:04 Dose: 3 ml Alprazolam (Xanax) 0.25 mg PO Q8 PRN PRN Reason: Anxiety Stop: 12/07/18 14:28 Last Admin: 12/06/18 09:49 Dose: 0.25 mg Amlodipine Besylate (Norvasc) 5 mg PO DAILY [facility] Last Admin: 12/06/18 09:51 Dose: 5 mg Belladonna/Phenobarbital () 1 tab PO TID [facility] Last Admin: 12/06/18 09:50 Dose: 1 tab Clotrimazole (Mycelex Reilly) 10 mg MT 5XD [facility] Last Admin: 12/06/18 08:18 Dose: 10 mg Enoxaparin Sodium (Lovenox) 40 mg SC DAILY [facility] Famotidine (Pepcid) 20 mg PO 1000 [facility] Last Admin: 12/06/18 09:54 Dose: 20 mg Ferrous Gluconate (Fergon) 324 mg PO DAILY [facility] Last Admin: 12/06/18 09:52 Dose: 324 mg Furosemide (Lasix) 20 mg PO DAILY [facility] Last Admin: 12/06/18 09:52 Dose: 20 mg Gabapentin (Neurontin) 300 mg PO TID [facility] Last Admin: 12/06/18 10:05 Dose: 300 mg Guaifenesin (Robitussin) 100 mg PO Q4H PRN PRN Reason: Cough Last Admin: 12/05/18 15:04 Dose: 100 mg Insulin Detemir (Levemir) 25 unit SC Q12 [facility] Last Admin: 12/06/18 10:05 Dose: 25 units Insulin Human Regular (Novolin R) 0 unit SC ACHS [facility]; Protocol Last Admin: 12/06/18 08:17 Dose: 4 units Lamivudine (Epivir) 300 mg PO DAILY [facility] Last Admin: 12/06/18 10:09 Dose: 300 mg Methylprednisolone (Solu-Medrol) 30 mg 0.5 mg/kg (30 mg) IV BID [facility] Last Admin: 12/06/18 09:52 Dose: 30 mg Montelukast Sodium (Singulair) 10 mg PO HS [facility] Last Admin: 12/05/18 22:00 Dose: 10 mg Multivitamins (Hexavitamin) 1 tab PO DAILY [facility] Last Admin: 12/06/18 10:11 Dose: 1 tab Raltegravir (Isentress) 400 mg PO BID [facility]; Protocol Last Admin: 12/06/18 10:09 Dose: 400 mg - Labs Labs: 12/06/18 05:52 12/06/18 05:52 PT 18.6 SECONDS (9.7-12.2) H 11/30/18 09:35 INR 1.7 11/30/18 09:35 APTT 40 SECONDS (21-34) H 11/30/18 09:35 - Constitutional Appears: In Acute Distress - Head Exam Head Exam: ATRAUMATIC - Eye Exam Eye Exam: Normal appearance Pupil Exam: NORMAL ACCOMODATION - ENT Exam ENT Exam: Normal Exam - Respiratory Exam Respiratory Exam: Decreased Breath Sounds, Rales, Wheezes, Respiratory Distress - Cardiovascular Exam Cardiovascular Exam: Tachycardia - GI/Abdominal Exam GI & Abdominal Exam: Tenderness, Rebound - Exam Exam: NORMAL INSPECTION - Extremities Exam Extremities Exam: Full ROM - Neurological Exam Neurological Exam: Alert, Oriented x3 - Psychiatric Exam Psychiatric exam: Normal Mood - Skin Skin Exam: Intact, Pallor Assessment and Plan - Assessment and Plan (Free Text) Assessment: respiratory distress copd exacerbation lung infection mass ac pancreatitis hiv Plan: continu as ordered
[2018-12-06] MEDS: guaiFENesin 100 mg/5 ml Syrup UD PO PRN ×3 (13:26→23:25)
--- NOTE | 2018-12-06 15:30 | PN ---
DATE: 12/06/2018 LOCATION: ICU 3. SUBJECTIVE: This is a 63-year-old male seen and examined in rounds, without reported significant respiratory distress with reported periods of agitation before and mild shortness of breath, used to be on BiPAP. No reported active bleeding, chest pain, palpitation or significant chills or fever. The entire chart is reviewed including but not limited to the most recent lab and radiology study results, current and previous medication list, current and previous medical events. The patient is seen by ID as well as pulmonary sr technical sales consultant. Most recent lab results today showed leukocytosis of 13.9, hemoglobin 8.1, hematocrit 25.8 with abnormal ABGs. CO2 content of 33 indicative of respiratory alkalosis, BUN 31 with normal creatinine. Blood glucose level of 311, magnesium 204, alkaline phosphatase 243, albumin 3 with low total protein. Abdominal obstructive series was previously done, official report is seen. PHYSICAL EXAMINATION: GENERAL: A 63-year-old male. VITAL SIGNS: Afebrile with pulse of 92, respiratory rate of 20-22, blood pressure of 136/68. HEENT: Showed pale dry oral mucous membrane. Nonicteric sclerae. LUNGS: Few scattered crepitation. Decreased air entry at bases. HEART: Positive S1 and S2. ABDOMEN: Soft with mild generalized tenderness. No mass or organomegaly. No rebound tenderness or guarding, but abdominal distention. EXTREMITIES: Lower extremities mild edematous changes. No clubbing or cyanosis. No reported new neurological deficits, sensory or motor. IMPRESSION: 1. Re-exacerbation of chronic obstructive pulmonary disease with respiratory insufficiency. 2. Peptic ulcer disease. 3. Anemia. 4. Known history of human immunodeficiency virus, poorly controlled diabetes mellitus, hepatitis C, viral infection, hyperlipidemia with hypertension. 5. Known history of sleep apnea. 6. Reported recurrent episodes of pancreatitis in the past. SUGGESTIONS: 1. Continue current management. 2. The patient may need upper GI with small bowel follow-through when he is more stable clinically. 3. Further recommendation to follow. Discussed this morning with Dr. Garcia. Sarai Reynolds MD
--- NOTE | 2018-12-06 16:56 | CP.PCM.PN ---
Subjective - Date & Time of Evaluation Date of Evaluation: 12/06/18 Time of Evaluation: 08:00 - Subjective Subjective: congested on cpap awake alert no fever Objective - Vital Signs/Intake and Output Vital Signs (last 24 hours): Temp Pulse Resp BP Pulse Ox 98.8 F 107 H 18 133/66 95 12/06/18 08:00 12/06/18 16:09 12/06/18 00:00 12/06/18 09:52 12/05/18 20:00 Intake and Output: 12/06/18 12/06/18 06:59 18:59 Intake Total 920 880 Output Total 1230 680 Balance -310 200 - Medications Medications: Current Medications Abacavir Sulfate (Ziagen) 300 mg PO BID [facility]; Protocol Last Admin: 12/06/18 10:00 Dose: 300 mg Acetaminophen (Tylenol 325mg Tab) 650 mg PO Q6 PRN PRN Reason: Pain, moderate (4-7) Last Admin: 12/03/18 12:48 Dose: 650 mg Albuterol/Ipratropium (Duoneb 3 Mg/0.5 Mg (3 Ml) Ud) 3 ml INH RQ4 [facility] Last Admin: 12/06/18 16:08 Dose: 3 ml Alprazolam (Xanax) 0.25 mg PO Q8 PRN PRN Reason: Anxiety Stop: 12/07/18 14:28 Last Admin: 12/06/18 09:49 Dose: 0.25 mg Amlodipine Besylate (Norvasc) 5 mg PO DAILY [facility] Last Admin: 12/06/18 09:51 Dose: 5 mg Belladonna/Phenobarbital () 1 tab PO TID [facility] Last Admin: 12/06/18 13:26 Dose: 1 tab Clotrimazole (Mycelex Reilly) 10 mg MT 5XD [facility] Last Admin: 12/06/18 16:49 Dose: 10 mg Enoxaparin Sodium (Lovenox) 40 mg SC DAILY [facility] Famotidine (Pepcid) 20 mg PO 1000 [facility] Last Admin: 12/06/18 09:54 Dose: 20 mg Ferrous Gluconate (Fergon) 324 mg PO DAILY [facility] Last Admin: 12/06/18 09:52 Dose: 324 mg Furosemide (Lasix) 20 mg PO DAILY [facility] Last Admin: 12/06/18 09:52 Dose: 20 mg Gabapentin (Neurontin) 300 mg PO TID [facility] Last Admin: 12/06/18 14:00 Dose: 300 mg Guaifenesin (Robitussin) 100 mg PO Q4H PRN PRN Reason: Cough Last Admin: 12/06/18 13:26 Dose: 100 mg Insulin Detemir (Levemir) 25 unit SC Q12 [facility] Last Admin: 12/06/18 10:05 Dose: 25 units Insulin Human Regular (Novolin R) 0 unit SC ACHS [facility]; Protocol Last Admin: 12/06/18 16:47 Dose: 3 units Lamivudine (Epivir) 300 mg PO DAILY [facility] Last Admin: 12/06/18 10:09 Dose: 300 mg Methylprednisolone (Solu-Medrol) 30 mg 0.5 mg/kg (30 mg) IV BID [facility] Last Admin: 12/06/18 09:52 Dose: 30 mg Montelukast Sodium (Singulair) 10 mg PO HS [facility] Last Admin: 12/05/18 22:00 Dose: 10 mg Multivitamins (Hexavitamin) 1 tab PO DAILY [facility] Last Admin: 12/06/18 10:11 Dose: 1 tab Raltegravir (Isentress) 400 mg PO BID [facility]; Protocol Last Admin: 12/06/18 10:09 Dose: 400 mg - Labs Labs: 12/06/18 05:52 12/06/18 05:52 PT 18.6 SECONDS (9.7-12.2) H 11/30/18 09:35 INR 1.7 11/30/18 09:35 APTT 40 SECONDS (21-34) H 11/30/18 09:35 - Constitutional Appears: Cachectic, Chronically Ill - Head Exam Head Exam: NORMOCEPHALIC - Eye Exam Eye Exam: absent: Scleral icterus - ENT Exam ENT Exam: Mucous Membranes Dry - Neck Exam Neck Exam: absent: Lymphadenopathy - Respiratory Exam Respiratory Exam: Decreased Breath Sounds, Prolonged Expiratory Phase, Rhonchi - Cardiovascular Exam Cardiovascular Exam: REGULAR RHYTHM - GI/Abdominal Exam GI & Abdominal Exam: Distended, Soft. absent: Tenderness - Rectal Exam Rectal Exam: Deferred - Exam Exam: NORMAL INSPECTION - Extremities Exam Extremities Exam: absent: Pedal Edema - Back Exam Back Exam: absent: CVA tenderness (L), CVA tenderness (R) - Neurological Exam Neurological Exam: Alert, Awake, CN II-XII Intact, Oriented x3 - Psychiatric Exam Psychiatric exam: Depressed - Skin Skin Exam: Dry Assessment and Plan (1) COPD exacerbation Status: Acute (2) Dyspnea Status: Acute (3) Sepsis Status: Acute (4) ARF (acute renal failure) Status: Acute (5) HIV (human immunodeficiency virus infection) Status: Acute - Assessment and Plan (Free Text) Assessment: lung mass with post obstructive pneumonia , severe copd HIV, resp insuff poor prognosis
--- NOTE | 2018-12-06 17:19 | RAD ---
Date of service: 12/06/2018 HISTORY: eval interval change COMPARISON: Portable chest 12/02/1909 13 a.m.. TECHNIQUE: 1 view obtained. FINDINGS: LUNGS: No interval change in limited patchy infiltrate at the right mid lung zone with remaining lung muller clear. PLEURA: No significant pleural effusion identified, no pneumothorax apparent. CARDIOVASCULAR: Calcific atherosclerotic changes are seen related to the thoracic aorta. Normal cardiac size. No pulmonary vascular congestion. OSSEOUS STRUCTURES: No significant abnormalities. VISUALIZED UPPER ABDOMEN: Normal. OTHER FINDINGS: None. IMPRESSION: Stable limited patchy infiltrate right mid lung zone with remainder the examination nonfocal.
[2018-12-07] MEDS: Albuterol-Ipratrop 3 mg / 0.5 (3 ml) UD INH SCH ×6 (00:22→20:53)
[2018-12-07] MEDS: guaiFENesin 100 mg/5 ml Syrup UD PO PRN ×2 (05:10→19:46)
[2018-12-07] MEDS: (Novolin R) Insulin Human Regular 100 units/ml vial SC SCH ×4 (08:58→21:17)
[2018-12-07 09:15] LABS: BASO % 0.1 % (0.0-2.0); HEMOGLOBIN 9.5 g/dL (12.0-18.0); LYMPH # 1.7 K/uL (1.0-4.3); LYMPH % 9.3 % (20.0-40.0); MEAN CELL VOLUME 83.6 fL (80.0-94.0); MEAN CORPUSCULAR HGB CONC 31.1 g/dL (33.0-37.0); MEAN PLATELET VOLUME 7.8 fL (7.2-11.7); MONO # 0.9 K/uL (0.0-0.8); MONO % 4.9 % (0.0-10.0); NEUT # 15.7 K/uL (1.8-7.0); NEUT % 85.7 % (50.0-75.0); NRBC % 0.1 % (0.0-2.0); PLATELET COUNT 455 K/uL (130-400); RBC 3.67 Mil/uL (4.40-5.90); RED CELL DISTRIBUTION WIDTH 17.5 % (11.5-14.5); WHITE BLOOD COUNT 18.3 K/uL (4.8-10.8)
[2018-12-07 09:38] LABS: ALB/GLOB RATIO 0.9 (1.0-2.1); ALBUMIN 3.4 g/dL (3.5-5.0); ALT/SGPT 13 U/L (21-72); AST/SGOT 41 U/L (17-59); BLOOD UREA NITROGEN 26 mg/dL (9-20); CALCIUM 9.4 mg/dl (8.6-10.4); GFR NON-AFRICAN AMERICAN > 60
[2018-12-07] MEDS: Belladonna-Phenobarbital PO SCH ×3 (09:42→17:20)
[2018-12-07] MEDS: Multiple Vitamins Tab PO SCH (09:43)
[2018-12-07] MEDS: LIPASE/PROTEASE/AMYLASE 4,200 U ECC PO SCH ×3 (09:45→17:21)
[2018-12-07] MEDS: MethylPREDNISolone 40 mg Vial IV SCH ×2 (09:46→17:14)
--- NOTE | 2018-12-07 09:46 | CP.CCUPN ---
<Maikel Abdi - Last Filed: 12/07/18 11:45> CCU Subjective - Physician Review Subjective (Free Text): ICU Progress Note for Dr. Fer Graf Pt seen at bedside this am. Refusing to be examined, agitated on exam, states "I do not want you to touch me". Refusing am lab draws as per RN today. Non- compliant with wearing BiPap overnight. Unable to obtain further HPI or ROS due to pt's current mental status and being agitated on exam. CCU Objective - Vital Signs / Intake & Output Vital Signs (Last 4 hours): Vital Signs Pulse Resp BP Pulse Ox 12/07/18 09:04 94 H 12/07/18 08:56 149/91 H 12/07/18 08:09 124 H 17 149/91 H 12/07/18 08:00 121 H 18 100 12/07/18 07:34 121 H 19 143/84 12/07/18 06:52 137/69 12/07/18 06:08 125/71 12/07/18 06:00 105 H 15 97 Intake and Output (Last 8hrs): Intake & Output 12/06/18 12/07/18 12/07/18 22:59 06:59 14:59 Intake Total 960 400 120 Output Total 800 700 200 Balance 160 -300 -80 Intake: Oral 960 400 120 Output: Urine 800 700 200 Urine, Voided 800 700 200 Other: # Voids Urine, Voided 0 0 0 # Bowel Movements 0 0 0 - Physical Exam Physical Exam Limitations: Positive for: Uncooperative - Medications Active Medications: Active Medications Generic Name Dose Route Start Last Admin Trade Name Valerioq PRN Reason Stop Dose Admin Abacavir Sulfate 300 mg 11/30/18 18:00 12/06/18 17:07 Ziagen PO 300 mg BID LAURA Administration Protocol Acetaminophen 650 mg 12/02/18 14:19 12/03/18 12:48 Tylenol 325mg Tab PO 650 mg Q6 PRN Administration Pain, moderate (4-7) Albuterol/Ipratropium 3 ml 11/30/18 16:00 12/07/18 07:57 Duoneb 3 Mg/0.5 Mg (3 Ml) Ud INH Not Given RQ4 [facility] Amlodipine Besylate 5 mg 11/30/18 14:30 12/06/18 09:51 Norvasc PO 5 mg DAILY LAURA Administration Aspirin 81 mg 12/07/18 10:00 Aspirin Chewable PO DAILY [facility] Atovaquone 1,500 mg 12/07/18 22:00 Mepron PO HS [facility] Protocol Belladonna/Phenobarbital 1 tab 12/05/18 14:00 12/06/18 17:29 PO 1 tab TID LAURA Administration Clotrimazole 10 mg 12/05/18 17:00 12/06/18 20:37 Mycelex Reilly MT 10 mg 5XD LAURA Administration Enoxaparin Sodium 40 mg 12/07/18 10:00 Lovenox SC DAILY [facility] Famotidine 20 mg 12/01/18 10:00 12/06/18 09:54 Pepcid PO 20 mg 1000 [facility] Administration Ferrous Gluconate 324 mg 12/02/18 13:00 12/06/18 09:52 Fergon PO 324 mg DAILY [facility] Administration Furosemide 20 mg 11/30/18 14:30 12/06/18 09:52 Lasix PO 20 mg DAILY [facility] Administration Gabapentin 300 mg 11/30/18 18:00 12/06/18 17:06 Neurontin PO 300 mg TID [facility] Administration Guaifenesin 100 mg 12/01/18 18:05 12/07/18 05:10 Robitussin PO 100 mg Q4H PRN Administration Cough Insulin Detemir 25 unit 12/01/18 22:00 12/06/18 21:36 Levemir SC 25 units Q12 [facility] Administration Insulin Human Regular 0 unit 11/30/18 17:00 12/07/18 08:58 Novolin R SC Not Given ACHS [facility] Protocol Lamivudine 300 mg 12/01/18 10:00 12/06/18 10:09 Epivir PO 300 mg DAILY [facility] Administration Methylprednisolone 30 mg 12/03/18 18:00 12/06/18 17:06 Solu-Medrol 0.5 mg/kg (30 mg) 30 mg IV Administration BID [facility] Metoprolol Tartrate 25 mg 12/07/18 10:00 Lopressor PO BID [facility] Montelukast Sodium 10 mg 11/30/18 22:00 12/06/18 21:36 Singulair PO 10 mg HS [facility] Administration Multivitamins 1 tab 12/02/18 13:00 12/06/18 10:11 Hexavitamin PO 1 tab DAILY [facility] Administration Raltegravir 400 mg 11/30/18 18:00 12/06/18 17:12 Isentress PO 400 mg BID LA[facility] Administration Protocol Rosuvastatin Calcium 10 mg 12/07/18 22:00 Crestor PO HS [facility]URA - Patient Studies Lab Studies: Microbiology Studies 12/05/18 14:05 MRSA Culture (Admit) - Final Naris MRSA NOT DETECTED 12/05/18 11:00 Blood Culture - Preliminary Blood-Venous NO GROWTH AFTER 24 HOURS 12/02/18 10:49 Fungal Culture - Preliminary Bronchial Washings Lab Studies 12/07/18 12/07/18 12/06/18 Range/Units 09:09 09:09 21:14 WBC 18.3 H (4.8-10.8) K/uL RBC 3.67 L (4.40-5.90) Mil/uL Hgb 9.5 L (12.0-18.0) g/dL Hct 30.7 L (35.0-51.0) % MCV 83.6 (80.0-94.0) fL MCH 26.0 L (27.0-31.0) pg MCHC 31.1 L (33.0-37.0) g/dL RDW 17.5 H (11.5-14.5) % Plt Count 455 H (130-400) K/uL MPV 7.8 (7.2-11.7) fL Neut % (Auto) 85.7 H (50.0-75.0) % Lymph % (Auto) 9.3 L (20.0-40.0) % [place] % (Auto) 4.9 (0.0-10.0) % Eos % (Auto) 0.0 (0.0-4.0) % Baso % (Auto) 0.1 (0.0-2.0) % Neut # (Auto) 15.7 H (1.8-7.0) K/uL Lymph # (Auto) 1.7 (1.0-4.3) K/uL [place] # (Auto) 0.9 H (0.0-0.8) K/uL Eos # (Auto) 0.0 (0.0-0.7) K/uL Baso # (Auto) 0.0 (0.0-0.2) K/uL Sodium 138 (132-148) mmol/L Potassium 3.8 (3.6-5.2) mmol/L Chloride 92 L (98-107) mmol/L Carbon Dioxide 38 H (22-30) mmol/L Anion Gap 11 (10-20) BUN 26 H (9-20) mg/dL Creatinine 0.9 (0.8-1.5) mg/dL Est GFR ( Amer) > 60 Est GFR (Non-Af Amer) > 60 POC Glucose (mg/dL) 222 H (65-110) mg/dL Random Glucose 117 H D (75-110) mg/dL Calcium 9.4 (8.6-10.4) mg/dl Phosphorus 2.0 L (2.5-4.5) mg/dL Magnesium 2.4 H (1.6-2.3) mg/dL Total Bilirubin 0.4 (0.2-1.3) mg/dL AST 41 (17-59) U/L ALT 13 L (21-72) U/L Alkaline Phosphatase 298 H D (38-126) U/L Total Protein 7.4 (6.3-8.3) g/dL Albumin 3.4 L (3.5-5.0) g/dL Globulin 3.9 (2.2-3.9) gm/dL Albumin/Globulin Ratio 0.9 L (1.0-2.1) Laboratory Results - last 24 hr 12/06/18 12/07/18 12/07/18 21:14 09:09 09:09 WBC 18.3 H RBC 3.67 L Hgb 9.5 L Hct 30.7 L MCV 83.6 MCH 26.0 L MCHC 31.1 L RDW 17.5 H Plt Count 455 H MPV 7.8 Neut % (Auto) 85.7 H Lymph % (Auto) 9.3 L [place] % (Auto) 4.9 Eos % (Auto) 0.0 Baso % (Auto) 0.1 Neut # (Auto) 15.7 H Lymph # (Auto) 1.7 [place] # (Auto) 0.9 H Eos # (Auto) 0.0 Baso # (Auto) 0.0 Sodium 138 Potassium 3.8 Chloride 92 L Carbon Dioxide 38 H Anion Gap 11 BUN 26 H Creatinine 0.9 Est GFR ( Amer) > 60 Est GFR (Non-Af Amer) > 60 POC Glucose (mg/dL) 222 H Random Glucose 117 H D Calcium 9.4 Phosphorus 2.0 L Magnesium 2.4 H Total Bilirubin 0.4 AST 41 ALT 13 L Alkaline Phosphatase 298 H D Total Protein 7.4 Albumin 3.4 L Globulin 3.9 Albumin/Globulin Ratio 0.9 L Radiology Impressions: Radiology Impressions Chest X-Ray 12/06/18 06:00 IMPRESSION: Stable limited patchy infiltrate right mid lung zone with remainder the examination nonfocal. Fingerstick Blood Sugar Results: 222 Review of Systems - Review of Systems Systems not reviewed;Unavailable: Uncooperative Critical Care Progress Note - Nutrition Nutrition: Nutrition Category Date Time Status Diabetic [Consistent Carbohydrate] [DIET] Diets 12/02/18 Lunch Active Assessment/Plan - Assessment and Plan (Free Text) Assessment: 63 y o male with PMhx of Lung Mass (Pathology from 12/04 reports Non Small Cell Carcinoma, favoring Squamous Cell Carcinoma), COPD, HTN, DM, Hep C, chronic pancreatitis, who presented to the ED with worsening sob. Pt reported at time that he was at home and felt that the room was too hot and thus felt short of breath. Was admitted to ICU for monitoring of respiratory status. Refusing am lab draws, non-compliant with wearing BiPap as instructed, refuses to speak with me and be examined this am. Plan: Neuro - AAO x2 (name and place only) - No gross neurological deficits - Psych Consulted, Dr. Spangler. Unspecified Anxiety disorder - Head CT 12/01: No acute intracranial hemorrhage. Age related Atrophy - Xanax d/c'd Cardio - Hemodynamically stable w/ slight tachycarida in 95-110 (Sinus) - C/W Norvasc, Metroprolol, and Lasix Pulm - Respiratory distress, slightly improved. Will continue to monitor respiratory status. - Etiology likely multifactorial: COPD exac vs Pneumonia (Aspiration?) vs Lung Ca - ABG (12/06): Respiratory Alkalosis w/ concurrent Metabolic Alkalosis - Refusing am blood draws this am, refusing to be examined - Repeat CXR ordered for this am - Chest X-Ray 11/30-Interstitial infiltrate or edema. More focal rounded opacities possibly multifocal consolidations however neoplasm cannot be excluded. - Bronchodilators treatments scheduled q4h - Singulair daily - Robitussin prn - Methylprednisolone 30mg IV BID - Repeat sputum cxs ordered - Mepron added for PCP prophylaxis, recent CD4 ct < 500 GI - Dr. Pagan consulted for abd pain, recs appreciated - Abd XR 12/04: R upper lobe mass concerning for malignancy - correlate clinically with prior pathology results. No evidence of mechanical bowel obstruction. Moderate stool retention. No free air seen please note prior CT chest report findings regarding liver lesions. - Hx of Hep C and Chronic Pancreatitis - AFP, amylase, CA 19-9, CEA, Lipase ordered - Diabetic diet, Glucerna shakes bid - Pepcid - C/W Pancrealipase Renal - BUN/Cr 31/0.8 on 12/05 - Pt refusing bloof draws - Assess volume status daily - Monitor I's/O's ID - Sepsis: HR >90, recent WBC 13.9, (+) Pneumonia on Cxray; pt refusing am blood draws - Bronchial washing CX 12/02 positive for Carmen albicans - C/W Cefepime, Vanco, Mycelex - Mepron added for PCP prophylaxis - ID, Dr. Thompson, on board. Recs appreciated Heme/Onc - Recent Hgb/Hct 8.1/25.8 (chronically anemic), Normocytic - Ferrous Sulfate daily - Platelet 373 - Pt refusing am lab draws today - HIV, on HAART therapy - R. Upper lobe biopsy (12/04): NSCL favoring SCC. Likely metastatic as liver lesion seen in prior CT reports - F/U CEA, CA 19-9, AFP Endocrine - Diabetic, Hga1c 9.1 - Accuchecks in 300's - Detemir 25mg q12 - ISS, Hypoglycemic protocol, Accucheck ACHS PPX: -Pepcid po for GI ppx -Lovenox daily for DVT ppx Pt seen, examined with, and plan discussed with Dr. Fer Graf, attending physician. Maikel Abdi, DO PGY-1, [employer] Pager #[phone] <Amy Graf - Last Filed: 12/08/18 16:36> CCU Objective - Vital Signs / Intake & Output Vital Signs (Last 4 hours): Vital Signs BP 12/08/18 13:54 138/82 Intake and Output (Last 8hrs): Intake & Output 12/08/18 12/08/18 12/08/18 06:59 14:59 22:59 Intake Total 240 200 Output Total 725 300 Balance -485 -100 Intake: Oral 240 200 Output: Urine 725 300 Urine, Voided 725 300 - Medications Active Medications: Active Medications Generic Name Dose Route Start Last Admin Trade Name Freq PRN Reason Stop Dose Admin Abacavir Sulfate 300 mg 11/30/18 18:00 12/08/18 10:47 Ziagen PO 300 mg BID LAURA Administration Protocol Acetaminophen 650 mg 12/02/18 14:19 12/03/18 12:48 Tylenol 325mg Tab PO 650 mg Q6 PRN Administration Pain, moderate (4-7) Albuterol/Ipratropium 3 ml 11/30/18 16:00 12/08/18 16:19 Duoneb 3 Mg/0.5 Mg (3 Ml) Ud INH Not Given RQ4 [facility] Alprazolam 0.25 mg 12/08/18 18:00 Xanax PO 12/15/18 18:01 Q8H PRN Anxiety Amlodipine Besylate 5 mg 11/30/18 14:30 12/08/18 10:47 Norvasc PO 5 mg DAILY [facility] Administration Aspirin 81 mg 12/07/18 10:00 12/08/18 10:48 Aspirin Chewable PO 81 mg DAILY [facility] Administration Atovaquone 1,500 mg 12/07/18 22:00 12/07/18 21:16 Mepron PO 1,500 mg HS LAURA Administration Protocol Belladonna/Phenobarbital 1 tab 12/05/18 14:00 12/08/18 13:52 PO 1 tab TID LAURA Administration Budesonide 0.25 mg 12/08/18 20:00 Pulmicort Respules INH RQ12 [facility] Clotrimazole 10 mg 12/05/18 17:00 12/08/18 13:53 Mycelex Reilly MT 10 mg 5XD LAURA Administration Emollient Ointment 5 gm 12/07/18 11:27 12/07/18 11:40 Vaseline Oint TOP 5 gm Q4H PRN Administration DRY LIPS Enoxaparin Sodium 40 mg 12/07/18 10:00 12/08/18 10:48 Lovenox SC 40 mg DAILY [facility]URA Administration Famotidine 20 mg 12/01/18 10:00 12/08/18 10:47 Pepcid PO 20 mg 1000 LAURA Administration Ferrous Gluconate 324 mg 12/02/18 13:00 12/08/18 10:46 Fergon PO 324 mg DAILY [facility] Administration Furosemide 20 mg 11/30/18 14:30 12/08/18 10:49 Lasix PO 20 mg DAILY [facility] Administration Gabapentin 300 mg 11/30/18 18:00 12/08/18 13:53 Neurontin PO 300 mg TID LAURA Administration Guaifenesin 100 mg 12/01/18 18:05 12/07/18 19:46 Robitussin PO 100 mg Q4H PRN Administration Cough Insulin Detemir 25 unit 12/01/18 22:00 12/08/18 10:48 Levemir SC 25 units Q12 LAURA Administration Insulin Human Regular 0 unit 11/30/18 17:00 12/08/18 12:54 Novolin R SC 3 units ACHS LAURA Administration Protocol Lamivudine 300 mg 12/01/18 10:00 12/08/18 10:47 Epivir PO 300 mg DAILY [facility] Administration Methylprednisolone 30 mg 12/03/18 18:00 12/08/18 10:46 Solu-Medrol 0.5 mg/kg (30 mg) 30 mg IV Administration BID [facility] Metoprolol Tartrate 25 mg 12/07/18 10:00 12/08/18 10:48 Lopressor PO 25 mg BID LAURA Administration Montelukast Sodium 10 mg 11/30/18 22:00 12/07/18 21:16 Singulair PO 10 mg HS [facility] Administration Multivitamins 1 tab 12/02/18 13:00 12/08/18 10:48 Hexavitamin PO 1 tab DAILY [facility] Administration Raltegravir 400 mg 11/30/18 18:00 12/08/18 10:44 Isentress PO 400 mg BID [facility] Administration Protocol Rosuvastatin Calcium 10 mg 12/07/18 22:00 12/07/18 21:15 Crestor PO 10 mg HS [facility] Administration - Patient Studies Lab Studies: Microbiology Studies 12/06/18 13:30 Blood Culture - Preliminary Blood-Venous NO GROWTH AFTER 48 HOURS 12/06/18 13:00 Blood Culture - Preliminary Blood-Venous NO GROWTH AFTER 48 HOURS 12/05/18 11:00 Blood Culture - Preliminary Blood-Venous NO GROWTH AFTER 3 DAYS 12/05/18 16:42 Urine Culture - Final Urine,Clean Catch Yeast Species Lab Studies 12/08/18 12/08/18 12/08/18 Range/Units 16:26 11:15 07:19 WBC (4.8-10.8) K/uL RBC (4.40-5.90) Mil/uL Hgb (12.0-18.0) g/dL Hct (35.0-51.0) % MCV (80.0-94.0) fL MCH (27.0-31.0) pg MCHC (33.0-37.0) g/dL RDW (11.5-14.5) % Plt Count (130-400) K/uL MPV (7.2-11.7) fL Neut % (Auto) (50.0-75.0) % Lymph % (Auto) (20.0-40.0) % [place] % (Auto) (0.0-10.0) % Eos % (Auto) (0.0-4.0) % Baso % (Auto) (0.0-2.0) % Neut # (Auto) (1.8-7.0) K/uL Lymph # (Auto) (1.0-4.3) K/uL [place] # (Auto) (0.0-0.8) K/uL Eos # (Auto) (0.0-0.7) K/uL Baso # (Auto) (0.0-0.2) K/uL Neutrophils % (Manual) (50-75) % Lymphocytes % (Manual) (20-40) % Monocytes % (Manual) (0-10) % Platelet Estimate (NORMAL) Large Platelets Hypochromasia (manual) Poikilocytosis (manual Anisocytosis (manual) Target Cells Sodium (132-148) mmol/L Potassium (3.6-5.2) mmol/L Chloride (98-107) mmol/L Carbon Dioxide (22-30) mmol/L Anion Gap (10-20) BUN (9-20) mg/dL Creatinine (0.8-1.5) mg/dL Est GFR ( Amer) Est GFR (Non-Af Amer) POC Glucose (mg/dL) 198 H 243 H 349 H (65-110) mg/dL Random Glucose (75-110) mg/dL Calcium (8.6-10.4) mg/dl Phosphorus (2.5-4.5) mg/dL Magnesium (1.6-2.3) mg/dL Total Bilirubin (0.2-1.3) mg/dL AST (17-59) U/L ALT (21-72) U/L Alkaline Phosphatase (38-126) U/L Total Protein (6.3-8.3) g/dL Albumin (3.5-5.0) g/dL Globulin (2.2-3.9) gm/dL Albumin/Globulin Ratio (1.0-2.1) 12/08/18 12/08/18 12/07/18 Range/Units 05:52 05:52 20:56 WBC 21.1 H (4.8-10.8) K/uL RBC 3.29 L (4.40-5.90) Mil/uL Hgb 8.6 L (12.0-18.0) g/dL Hct 28.0 L (35.0-51.0) % MCV 85.0 (80.0-94.0) fL MCH 26.0 L (27.0-31.0) pg MCHC 30.6 L (33.0-37.0) g/dL RDW 16.9 H (11.5-14.5) % Plt Count 375 (130-400) K/uL MPV 8.5 (7.2-11.7) fL Neut % (Auto) 91.6 H (50.0-75.0) % Lymph % (Auto) 4.2 L (20.0-40.0) % [place] % (Auto) 4.1 (0.0-10.0) % Eos % (Auto) 0.0 (0.0-4.0) % Baso % (Auto) 0.1 (0.0-2.0) % Neut # (Auto) 19.3 H (1.8-7.0) K/uL Lymph # (Auto) 0.9 L (1.0-4.3) K/uL [place] # (Auto) 0.9 H (0.0-0.8) K/uL Eos # (Auto) 0.0 (0.0-0.7) K/uL Baso # (Auto) 0.0 (0.0-0.2) K/uL Neutrophils % (Manual) 95 H (50-75) % Lymphocytes % (Manual) 3 L (20-40) % Monocytes % (Manual) 2 (0-10) % Platelet Estimate Normal (NORMAL) Large Platelets Present Hypochromasia (manual) Slight Poikilocytosis (manual Slight Anisocytosis (manual) Slight Target Cells Slight Sodium 134 (132-148) mmol/L Potassium 4.6 (3.6-5.2) mmol/L Chloride 94 L (98-107) mmol/L Carbon Dioxide 34 H (22-30) mmol/L Anion Gap 11 (10-20) BUN 30 H (9-20) mg/dL Creatinine 0.8 (0.8-1.5) mg/dL Est GFR ( Amer) > 60 Est GFR (Non-Af Amer) > 60 POC Glucose (mg/dL) 352 H (65-110) mg/dL Random Glucose 375 H D (75-110) mg/dL Calcium 8.6 (8.6-10.4) mg/dl Phosphorus 2.7 (2.5-4.5) mg/dL Magnesium 2.6 H (1.6-2.3) mg/dL Total Bilirubin 0.4 (0.2-1.3) mg/dL AST 22 (17-59) U/L ALT 9 L D (21-72) U/L Alkaline Phosphatase 258 H (38-126) U/L Total Protein 6.7 (6.3-8.3) g/dL Albumin 3.3 L (3.5-5.0) g/dL Globulin 3.5 (2.2-3.9) gm/dL Albumin/Globulin Ratio 0.9 L (1.0-2.1) Laboratory Results - last 24 hr 12/07/18 12/08/18 12/08/18 20:56 05:52 05:52 WBC 21.1 H RBC 3.29 L Hgb 8.6 L Hct 28.0 L MCV 85.0 MCH 26.0 L MCHC 30.6 L RDW 16.9 H Plt Count 375 MPV 8.5 Neut % (Auto) 91.6 H Lymph % (Auto) 4.2 L [place] % (Auto) 4.1 Eos % (Auto) 0.0 Baso % (Auto) 0.1 Neut # (Auto) 19.3 H Lymph # (Auto) 0.9 L [place] # (Auto) 0.9 H Eos # (Auto) 0.0 Baso # (Auto) 0.0 Neutrophils % (Manual) 95 H Lymphocytes % (Manual) 3 L Monocytes % (Manual) 2 Platelet Estimate Normal Large Platelets Present Hypochromasia (manual) Slight Poikilocytosis (manual Slight Anisocytosis (manual) Slight Target Cells Slight Sodium 134 Potassium 4.6 Chloride 94 L Carbon Dioxide 34 H Anion Gap 11 BUN 30 H Creatinine 0.8 Est GFR ( Amer) > 60 Est GFR (Non-Af Amer) > 60 POC Glucose (mg/dL) 352 H Random Glucose 375 H D Calcium 8.6 Phosphorus 2.7 Magnesium 2.6 H Total Bilirubin 0.4 AST 22 ALT 9 L D Alkaline Phosphatase 258 H Total Protein 6.7 Albumin 3.3 L Globulin 3.5 Albumin/Globulin Ratio 0.9 L 12/08/18 12/08/18 12/08/18 07:19 11:15 16:26 WBC RBC Hgb Hct MCV MCH MCHC RDW Plt Count MPV Neut % (Auto) Lymph % (Auto) [place] % (Auto) Eos % (Auto) Baso % (Auto) Neut # (Auto) Lymph # (Auto) [place] # (Auto) Eos # (Auto) Baso # (Auto) Neutrophils % (Manual) Lymphocytes % (Manual) Monocytes % (Manual) Platelet Estimate Large Platelets Hypochromasia (manual) Poikilocytosis (manual Anisocytosis (manual) Target Cells Sodium Potassium Chloride Carbon Dioxide Anion Gap BUN Creatinine Est GFR ( Amer) Est GFR (Non-Af Amer) POC Glucose (mg/dL) 349 H 243 H 198 H Random Glucose Calcium Phosphorus Magnesium Total Bilirubin AST ALT Alkaline Phosphatase Total Protein Albumin Globulin Albumin/Globulin Ratio Critical Care Progress Note - Nutrition Nutrition: Nutrition Category Date Time Status Diabetic [Consistent Carbohydrate] [DIET] Diets 12/02/18 Lunch Active Assessment/Plan - Assessment and Plan (Free Text) Plan: Patient refused examination. -h/o COPD -h/o HIV (CD4 unknown) -above resident note reviewed. -PAtient stated " I will kick you if to examine me..." -Patient was violent and remains hemodynamically stable -will benefit from negative balance base don CXR findings - Date & Time Date: 12/07/18 Time: 19:00
[2018-12-07] MEDS: Enoxaparin 40 mg Syringe SC SCH ×2 (09:50→10:04)
[2018-12-07] MEDS: Insulin Detemir 100 units/ml Vial (Levemir) SC SCH ×2 (10:05→21:16)
[2018-12-07 10:28] LABS: ANISOCYTOSIS SLIGHT; HYPOCHROMIC SLIGHT; LYMPHOCYTE 5 % (20-40); MONOCYTE 2 % (0-10); NEUTROPHIL 93 % (50-75); PLATELET ESTIMATE INCREASED (NORMAL); TOTAL CELLS COUNTED 100
[2018-12-07 10:29] LABS: POLYCHROMIC SLIGHT; TARGET CELLS SLIGHT
[2018-12-07] MEDS: Petrolatum Oint Foilpak (5 gm) TOP PRN (11:40)
--- NOTE | 2018-12-07 12:46 | PN ---
DATE: 12/07/2018 LOCATION: ICU 3. SUBJECTIVE: This is a 63-year-old male seen and examined in rounds in the intensive care unit reported to be somewhat agitated, restless, refusing body care, BiPAP is in place on and off. Also reported active bleeding. Most recent lab result showed leukocytosis of 18.3, hemoglobin 9.5, hematocrit 30.7 with low indices on thrombocytosis of 455. CO2 content 38, glucose 117, magnesium 2.4, phosphorus 2, alkaline phosphatase 298, albumin 3.4. Most recently done chest x-ray yesterday, official report is seen with stable limited patchy infiltrate in the right mid-lung zone. PHYSICAL EXAMINATION: GENERAL: This is a 63-year-old male. VITAL SIGNS: Afebrile with heart rate of 106, respiratory rate 20-22, blood pressure of 144/88. HEENT: Showed pale dry oral mucous membrane. Nonicteric sclerae. LUNGS: Few scattered crepitation. Decreased air entry at bases. HEART: Positive S1 and S2. ABDOMEN: Soft with mild generalized tenderness. No masses or organomegaly. No rebound tenderness or guarding. EXTREMITIES: Without significant clubbing, cyanosis or edema. NEUROLOGIC: No reported new neurological deficits, sensory or motor. IMPRESSION: 1. Re-exacerbation of chronic obstructive pulmonary disease with pneumonia. 2. Reported lung mass lesion of unclear etiology. 3. Re-exacerbation of peptic ulcer disease. 4. Anemia most likely secondary to above. 5. Known history of hepatitis C viral infection, human immunodeficiency virus with hyperlipidemia. 6. Known history of sleep apnea. 7. Reported history of recurrent pancreatitis before. SUGGESTIONS: 1. Continue current management. 2. Antireflux measure. 3. No aggressive GI workup in the meantime; however, the patient may need barium enema when he is more stable clinically. Sarai Reynolds MD
--- NOTE | 2018-12-07 14:01 | RAD ---
Chest x-ray single frontal view HISTORY: Infiltrate. COMPARISON: 12/06/2018 FINDINGS: Persistent ill-defined patchy consolidative opacity seen within the right mid lung zone. Continued interval follow-up is recommended to ensure resolution and exclude underlying mass/lesion. Biapical pleural thickening with upper lobe granulomatous changes. Heart size within normal limits. Degenerative changes in the spine. Impression: Persistent ill-defined patchy consolidative opacity seen within the right mid lung zone. Continued interval follow-up is recommended to ensure resolution and exclude underlying mass/lesion. Biapical pleural thickening with upper lobe granulomatous changes.
[2018-12-07] MEDS ORDERED: Potassium Phosphate 15 MMOLE in Dextrose 5% In Water 250 ML IVPB ONE (17:00)
--- NOTE | 2018-12-07 18:42 | CP.PCM.PN ---
Subjective - Date & Time of Evaluation Date of Evaluation: 12/07/18 Time of Evaluation: 08:00 - Subjective Subjective: weak bedridden In NAD less SOB Objective - Vital Signs/Intake and Output Vital Signs (last 24 hours): Temp Pulse Resp BP Pulse Ox 98.0 F 85 27 H 100/50 L 98 12/07/18 16:00 12/07/18 18:00 12/07/18 18:00 12/07/18 17:57 12/07/18 18:00 Intake and Output: 12/07/18 12/07/18 06:59 18:59 Intake Total 700 1002 Output Total 1200 1600 Balance -500 -598 - Medications Medications: Current Medications Abacavir Sulfate (Ziagen) 300 mg PO BID [facility]; Protocol Last Admin: 12/07/18 17:21 Dose: 300 mg Acetaminophen (Tylenol 325mg Tab) 650 mg PO Q6 PRN PRN Reason: Pain, moderate (4-7) Last Admin: 12/03/18 12:48 Dose: 650 mg Albuterol/Ipratropium (Duoneb 3 Mg/0.5 Mg (3 Ml) Ud) 3 ml INH RQ4 [facility] Last Admin: 12/07/18 15:39 Dose: 3 ml Amlodipine Besylate (Norvasc) 5 mg PO DAILY [facility] Last Admin: 12/07/18 09:45 Dose: 5 mg Aspirin (Aspirin Chewable) 81 mg PO DAILY [facility] Last Admin: 12/07/18 09:42 Dose: 81 mg Atovaquone (Mepron) 1,500 mg PO HS [facility]; Protocol Belladonna/Phenobarbital () 1 tab PO TID [facility] Last Admin: 12/07/18 17:20 Dose: 1 tab Clotrimazole (Mycelex Reilly) 10 mg MT 5XD [facility] Last Admin: 12/07/18 17:21 Dose: 10 mg Emollient Ointment (Vaseline Oint) 5 gm TOP Q4H PRN PRN Reason: DRY LIPS Last Admin: 12/07/18 11:40 Dose: 5 gm Enoxaparin Sodium (Lovenox) 40 mg SC DAILY [facility] Last Admin: 12/07/18 10:04 Dose: Not Given Famotidine (Pepcid) 20 mg PO 1000 [facility] Last Admin: 12/07/18 09:45 Dose: 20 mg Ferrous Gluconate (Fergon) 324 mg PO DAILY [facility] Last Admin: 12/07/18 09:50 Dose: 324 mg Furosemide (Lasix) 20 mg PO DAILY [facility] Last Admin: 12/07/18 09:44 Dose: Not Given Gabapentin (Neurontin) 300 mg PO TID [facility] Last Admin: 12/07/18 17:21 Dose: 300 mg Guaifenesin (Robitussin) 100 mg PO Q4H PRN PRN Reason: Cough Last Admin: 12/07/18 05:10 Dose: 100 mg Potassium Phosphate 15 mmole/ (Dextrose) 255 mls @ 42.5 mls/hr IVPB ONCE ONE Stop: 12/07/18 22:59 Last Admin: 12/07/18 17:13 Dose: 42.5 mls/hr Insulin Detemir (Levemir) 25 unit SC Q12 [facility] Last Admin: 12/07/18 10:05 Dose: 25 units Insulin Human Regular (Novolin R) 0 unit SC ACHS [facility]; Protocol Last Admin: 12/07/18 17:13 Dose: 3 units Lamivudine (Epivir) 300 mg PO DAILY [facility] Last Admin: 12/07/18 09:42 Dose: 300 mg Methylprednisolone (Solu-Medrol) 30 mg 0.5 mg/kg (30 mg) IV BID [facility] Last Admin: 12/07/18 17:14 Dose: 30 mg Metoprolol Tartrate (Lopressor) 25 mg PO BID [facility] Last Admin: 12/07/18 09:49 Dose: 25 mg Montelukast Sodium (Singulair) 10 mg PO HS [facility] Last Admin: 12/06/18 21:36 Dose: 10 mg Multivitamins (Hexavitamin) 1 tab PO DAILY [facility] Last Admin: 12/07/18 09:43 Dose: 1 tab Raltegravir (Isentress) 400 mg PO BID [facility]; Protocol Last Admin: 12/07/18 17:20 Dose: 400 mg Rosuvastatin Calcium (Crestor) 10 mg PO [facility] - Labs Labs: 12/07/18 09:09 12/07/18 09:09 PT 18.6 SECONDS (9.7-12.2) H 11/30/18 09:35 INR 1.7 11/30/18 09:35 APTT 40 SECONDS (21-34) H 11/30/18 09:35 - Constitutional Appears: No Acute Distress, Cachectic, Chronically Ill - Eye Exam Eye Exam: absent: Scleral icterus - ENT Exam ENT Exam: Mucous Membranes Dry (x), Normal External Ear Exam - Neck Exam Neck Exam: absent: Lymphadenopathy - Respiratory Exam Respiratory Exam: Decreased Breath Sounds, Prolonged Expiratory Phase, Rhonchi - Cardiovascular Exam Cardiovascular Exam: REGULAR RHYTHM - GI/Abdominal Exam GI & Abdominal Exam: Distended, Soft - Rectal Exam Rectal Exam: Deferred - Exam Exam: NORMAL INSPECTION - Extremities Exam Extremities Exam: Full ROM, Pedal Edema - Back Exam Back Exam: absent: paraspinal tenderness - Neurological Exam Neurological Exam: Alert, Awake, CN II-XII Intact, Oriented x3. absent: Normal Gait Neuro motor strength exam: Left Upper Extremity: 4, Right Upper Extremity: 4, Left Lower Extremity: 4, Right Lower Extremity: 4 - Psychiatric Exam Psychiatric exam: Depressed - Skin Skin Exam: Dry Assessment and Plan (1) COPD exacerbation Status: Acute (2) Dyspnea Status: Acute (3) Sepsis Status: Acute (4) ARF (acute renal failure) Status: Acute (5) HIV (human immunodeficiency virus infection) Status: Acute - Assessment and Plan (Free Text) Assessment: cont IV rx CPAP oncology eval poor prognosis
--- NOTE | 2018-12-07 18:44 | CP.PCM.PN ---
Subjective - Date & Time of Evaluation Date of Evaluation: 12/07/18 Time of Evaluation: 18:41 - Subjective Subjective: breathing beter feels less abd pain Objective - Vital Signs/Intake and Output Vital Signs (last 24 hours): Temp Pulse Resp BP Pulse Ox 98.0 F 85 27 H 100/50 L 98 12/07/18 16:00 12/07/18 18:00 12/07/18 18:00 12/07/18 17:57 12/07/18 18:00 Intake and Output: 12/07/18 12/07/18 06:59 18:59 Intake Total 700 1002 Output Total 1200 1600 Balance -500 -598 - Medications Medications: Current Medications Abacavir Sulfate (Ziagen) 300 mg PO BID [facility]; Protocol Last Admin: 12/07/18 17:21 Dose: 300 mg Acetaminophen (Tylenol 325mg Tab) 650 mg PO Q6 PRN PRN Reason: Pain, moderate (4-7) Last Admin: 12/03/18 12:48 Dose: 650 mg Albuterol/Ipratropium (Duoneb 3 Mg/0.5 Mg (3 Ml) Ud) 3 ml INH RQ4 [facility] Last Admin: 12/07/18 15:39 Dose: 3 ml Amlodipine Besylate (Norvasc) 5 mg PO DAILY [facility] Last Admin: 12/07/18 09:45 Dose: 5 mg Aspirin (Aspirin Chewable) 81 mg PO DAILY [facility] Last Admin: 12/07/18 09:42 Dose: 81 mg Atovaquone (Mepron) 1,500 mg PO HS [facility]; Protocol Belladonna/Phenobarbital () 1 tab PO TID [facility] Last Admin: 12/07/18 17:20 Dose: 1 tab Clotrimazole (Mycelex Reilly) 10 mg MT 5XD [facility] Last Admin: 12/07/18 17:21 Dose: 10 mg Emollient Ointment (Vaseline Oint) 5 gm TOP Q4H PRN PRN Reason: DRY LIPS Last Admin: 12/07/18 11:40 Dose: 5 gm Enoxaparin Sodium (Lovenox) 40 mg SC DAILY [facility] Last Admin: 12/07/18 10:04 Dose: Not Given Famotidine (Pepcid) 20 mg PO 1000 [facility] Last Admin: 12/07/18 09:45 Dose: 20 mg Ferrous Gluconate (Fergon) 324 mg PO DAILY [facility] Last Admin: 12/07/18 09:50 Dose: 324 mg Furosemide (Lasix) 20 mg PO DAILY [facility] Last Admin: 12/07/18 09:44 Dose: Not Given Gabapentin (Neurontin) 300 mg PO TID [facility] Last Admin: 12/07/18 17:21 Dose: 300 mg Guaifenesin (Robitussin) 100 mg PO Q4H PRN PRN Reason: Cough Last Admin: 12/07/18 05:10 Dose: 100 mg Potassium Phosphate 15 mmole/ (Dextrose) 255 mls @ 42.5 mls/hr IVPB ONCE ONE Stop: 12/07/18 22:59 Last Admin: 12/07/18 17:13 Dose: 42.5 mls/hr Insulin Detemir (Levemir) 25 unit SC Q12 [facility] Last Admin: 12/07/18 10:05 Dose: 25 units Insulin Human Regular (Novolin R) 0 unit SC ACHS [facility]; Protocol Last Admin: 12/07/18 17:13 Dose: 3 units Lamivudine (Epivir) 300 mg PO DAILY [facility] Last Admin: 12/07/18 09:42 Dose: 300 mg Methylprednisolone (Solu-Medrol) 30 mg 0.5 mg/kg (30 mg) IV BID [facility] Last Admin: 12/07/18 17:14 Dose: 30 mg Metoprolol Tartrate (Lopressor) 25 mg PO BID [facility] Last Admin: 12/07/18 09:49 Dose: 25 mg Montelukast Sodium (Singulair) 10 mg PO HS [facility] Last Admin: 12/06/18 21:36 Dose: 10 mg Multivitamins (Hexavitamin) 1 tab PO DAILY [facility] Last Admin: 12/07/18 09:43 Dose: 1 tab Raltegravir (Isentress) 400 mg PO BID [facility]; Protocol Last Admin: 12/07/18 17:20 Dose: 400 mg Rosuvastatin Calcium (Crestor) 10 mg PO [facility] - Labs Labs: 12/07/18 09:09 12/07/18 09:09 PT 18.6 SECONDS (9.7-12.2) H 11/30/18 09:35 INR 1.7 11/30/18 09:35 APTT 40 SECONDS (21-34) H 11/30/18 09:35 - Constitutional Appears: Non-toxic - Head Exam Head Exam: ATRAUMATIC - Eye Exam Eye Exam: Normal appearance Pupil Exam: NORMAL ACCOMODATION - ENT Exam ENT Exam: Mucous Membranes Moist - Neck Exam Neck Exam: Normal Inspection - Respiratory Exam Respiratory Exam: Decreased Breath Sounds, Clear to Ausculation Bilateral, Rhonchi - Cardiovascular Exam Cardiovascular Exam: Tachycardia - GI/Abdominal Exam GI & Abdominal Exam: Tenderness - Exam Exam: NORMAL INSPECTION - Extremities Exam Extremities Exam: Normal Capillary Refill - Back Exam Back Exam: NORMAL INSPECTION - Neurological Exam Neurological Exam: Alert, Awake Assessment and Plan - Assessment and Plan (Free Text) Assessment: pnumonia cancer lung copd respiratory disrtress aneamia pancreatitis hiv Plan: cont as ordered
--- NOTE | 2018-12-07 18:47 | CP.PCM.PN ---
Subjective - Date & Time of Evaluation Date of Evaluation: 12/07/18 Time of Evaluation: 11:00 - Subjective Subjective: Patient seen and examined Remains on BiPAP for shortness of breath Afebrile Complaining of weakness Objective - Vital Signs/Intake and Output Vital Signs (last 24 hours): Temp Pulse Resp BP Pulse Ox 98.0 F 85 27 H 100/50 L 98 12/07/18 16:00 12/07/18 18:00 12/07/18 18:00 12/07/18 17:57 12/07/18 18:00 Intake and Output: 12/07/18 12/07/18 06:59 18:59 Intake Total 700 1002 Output Total 1200 1600 Balance -500 -598 - Medications Medications: Current Medications Abacavir Sulfate (Ziagen) 300 mg PO BID [facility]; Protocol Last Admin: 12/07/18 17:21 Dose: 300 mg Acetaminophen (Tylenol 325mg Tab) 650 mg PO Q6 PRN PRN Reason: Pain, moderate (4-7) Last Admin: 12/03/18 12:48 Dose: 650 mg Albuterol/Ipratropium (Duoneb 3 Mg/0.5 Mg (3 Ml) Ud) 3 ml INH RQ4 [facility] Last Admin: 12/07/18 15:39 Dose: 3 ml Amlodipine Besylate (Norvasc) 5 mg PO DAILY [facility] Last Admin: 12/07/18 09:45 Dose: 5 mg Aspirin (Aspirin Chewable) 81 mg PO DAILY [facility] Last Admin: 12/07/18 09:42 Dose: 81 mg Atovaquone (Mepron) 1,500 mg PO HS [facility]; Protocol Belladonna/Phenobarbital () 1 tab PO TID [facility] Last Admin: 12/07/18 17:20 Dose: 1 tab Clotrimazole (Mycelex Reilly) 10 mg MT 5XD [facility] Last Admin: 12/07/18 17:21 Dose: 10 mg Emollient Ointment (Vaseline Oint) 5 gm TOP Q4H PRN PRN Reason: DRY LIPS Last Admin: 12/07/18 11:40 Dose: 5 gm Enoxaparin Sodium (Lovenox) 40 mg SC DAILY [facility] Last Admin: 12/07/18 10:04 Dose: Not Given Famotidine (Pepcid) 20 mg PO 1000 [facility] Last Admin: 12/07/18 09:45 Dose: 20 mg Ferrous Gluconate (Fergon) 324 mg PO DAILY [facility] Last Admin: 12/07/18 09:50 Dose: 324 mg Furosemide (Lasix) 20 mg PO DAILY [facility] Last Admin: 12/07/18 09:44 Dose: Not Given Gabapentin (Neurontin) 300 mg PO TID [facility] Last Admin: 12/07/18 17:21 Dose: 300 mg Guaifenesin (Robitussin) 100 mg PO Q4H PRN PRN Reason: Cough Last Admin: 12/07/18 05:10 Dose: 100 mg Potassium Phosphate 15 mmole/ (Dextrose) 255 mls @ 42.5 mls/hr IVPB ONCE ONE Stop: 12/07/18 22:59 Last Admin: 12/07/18 17:13 Dose: 42.5 mls/hr Insulin Detemir (Levemir) 25 unit SC Q12 [facility] Last Admin: 12/07/18 10:05 Dose: 25 units Insulin Human Regular (Novolin R) 0 unit SC ACHS [facility]; Protocol Last Admin: 12/07/18 17:13 Dose: 3 units Lamivudine (Epivir) 300 mg PO DAILY [facility] Last Admin: 12/07/18 09:42 Dose: 300 mg Methylprednisolone (Solu-Medrol) 30 mg 0.5 mg/kg (30 mg) IV BID [facility] Last Admin: 12/07/18 17:14 Dose: 30 mg Metoprolol Tartrate (Lopressor) 25 mg PO BID [facility] Last Admin: 12/07/18 09:49 Dose: 25 mg Montelukast Sodium (Singulair) 10 mg PO HS [facility] Last Admin: 12/06/18 21:36 Dose: 10 mg Multivitamins (Hexavitamin) 1 tab PO DAILY [facility] Last Admin: 12/07/18 09:43 Dose: 1 tab Raltegravir (Isentress) 400 mg PO BID [facility]; Protocol Last Admin: 12/07/18 17:20 Dose: 400 mg Rosuvastatin Calcium (Crestor) 10 mg PO HS [facility] - Labs Labs: 12/07/18 09:09 12/07/18 09:09 PT 18.6 SECONDS (9.7-12.2) H 11/30/18 09:35 INR 1.7 11/30/18 09:35 APTT 40 SECONDS (21-34) H 11/30/18 09:35 - Head Exam Head Exam: ATRAUMATIC, NORMOCEPHALIC - ENT Exam ENT Exam: Mucous Membranes Moist - Neck Exam Neck Exam: Normal Inspection - Respiratory Exam Respiratory Exam: Decreased Breath Sounds - Cardiovascular Exam Cardiovascular Exam: REGULAR RHYTHM - GI/Abdominal Exam GI & Abdominal Exam: Soft, Normal Bowel Sounds Assessment and Plan (1) COPD exacerbation Assessment & Plan: Continue nebulizer treatment Taper steroids BiPAP as needed Prognosis poor Status: Acute (2) HIV (human immunodeficiency virus infection) Status: Acute (3) Lung mass Assessment & Plan: Status post lung biopsy consistent with non-small cell CA Patient poor candidate for surgery, radiation therapy, chemo Status: Acute
[2018-12-07] MEDS: Atovaquone 750 mg/5 ml Susp UD PO SCH (21:16)
[2018-12-08] MEDS: Albuterol-Ipratrop 3 mg / 0.5 (3 ml) UD INH SCH ×6 (00:19→20:11)
[2018-12-08 05:58] LABS: BASO % 0.1 % (0.0-2.0); HEMOGLOBIN 8.6 g/dL (12.0-18.0); LYMPH # 0.9 K/uL (1.0-4.3); LYMPH % 4.2 % (20.0-40.0); MEAN CORPUSCULAR HGB CONC 30.6 g/dL (33.0-37.0); MEAN PLATELET VOLUME 8.5 fL (7.2-11.7); MONO # 0.9 K/uL (0.0-0.8); MONO % 4.1 % (0.0-10.0); NEUT # 19.3 K/uL (1.8-7.0); NEUT % 91.6 % (50.0-75.0); NRBC % 0.1 % (0.0-2.0); PLATELET COUNT 375 K/uL (130-400); RBC 3.29 Mil/uL (4.40-5.90); RED CELL DISTRIBUTION WIDTH 16.9 % (11.5-14.5); WHITE BLOOD COUNT 21.1 K/uL (4.8-10.8)
--- NOTE | 2018-12-08 06:26 | CON ---
DATE: 12/04/[address] Sarai Reynolds to Dr. Jana Garcia. SUBJECTIVE: I was called for a GI consultation by the admitting medical team. The patient is seen and fully examined as requested by Dr. Jana Garcia on 12/04/2018. The entire chart is reviewed including but not limited to the most recent lab and radiology study results, current and previous medication list, current and previous medical events, a short handwritten consultation sheet left in the chart at the time of my GI consultation on 12/04/2018. Case discussed with Dr. Jana Garcia before and immediately after my GI consultation on 12/04/2018. This is a 63-year-old male known case for me from very recent previous admission, was readmitted through the emergency room with recurrent episode of chest congestion, recurrent productive cough, shortness of breath, generalized weakness and malaise with less oral intake, without reported actual chest pain, palpitation or recent history of active GI bleeding. The patient had recently upper endoscopy done on 11/13/2018. Please see endoscopy report. PAST MEDICAL HISTORY: Including but not limited to, 1. COPD with recurrent bronchitis and pneumonia. 2. Hepatitis C viral infection. 3. HIV infection with possible . 4. Recurrent pancreatitis. 5. History of hyperlipidemia, sleep apnea, diabetes mellitus, chronic lower back pain syndrome as well as osteoarthritis with severe anxiety syndrome. 6. Status post facial and surgery due to fractures. CURRENT MEDICATIONS: Post admission medication list reviewed. FAMILY HISTORY: Noncontributory. SOCIAL HISTORY: Positive for cigarette smoke, but no recent history of alcohol intake. ALLERGY TO MEDICATION: UNKNOWN. Most recent lab results at the time of my GI consultation showed leukocytosis of 14.9, hemoglobin 9.2, hematocrit 29.7 with low indices and normal platelet count. CO2 content 31 with a blood glucose level to 116, but normal liver function test except alkaline phosphatase to 205, albumin 2.9. After being admitted to the hospital, the patient had again repeated CAT scan of the head which was unremarkable, but slight chronic ischemic exchanges. Abdominal x-ray ordered at the time of my GI consultation on 12/04/2018, report is seen with possible lung malignancy. PHYSICAL EXAMINATION: GENERAL: A 63-year-old male appeared to be awake, alert and oriented, somewhat cachectic with intermittent period of shortness of breath and productive cough. VITAL SIGNS: Afebrile with heart rate of 102, respiratory rate 20-22, blood pressure of 120/76. HEENT: Showed dry oral mucous membrane, pale, with nonicteric sclerae. LYMPH NODES: No lymphadenitis or lymphadenopathy. LUNGS: Few scattered crepitation. Decreased air entry at bases. HEART: Positive S1 and S2. ABDOMEN: Soft with mild generalized tenderness. No mass or organomegaly. No rebound tenderness or guarding, but midepigastric slight tenderness. EXTREMITIES: With lower extremities mild edematous changes. No clubbing or cyanosis. No reported new neurological deficits, sensory or motor. No reported new focal deficits. IMPRESSION: 1. Re-exacerbation of peptic ulcer disease. 2. Re-exacerbation of chronic obstructive pulmonary disease with recurrent bronchitis and possible pneumonia. 3. Abnormal radiology study results of the abdomen and the chest, highly suggestive possible pulmonary neoplasm. 4. Known history of hepatitis C viral infection, human immunodeficiency virus, osteoarthritis as well as episodes of pneumonia before. 5. Reported history of sleep apnea. 6. Poorly controlled diabetes mellitus. SUGGESTIONS: 1. Continue current management. 2. Cancer markers. 3. Sectional abdominal and pelvic CAT scan. 4. Proton pump inhibitors IV. 5. Reglan IV. 6. Follow up on cancer markers. 7. Peripheral hyperalimentation. 8. Serum lipase and amylase level. 9. No need for repeat aggressive GI procedures in the meantime. Further recommendation to follow. Sarai Reynolds MD
[2018-12-08 06:46] LABS: ALB/GLOB RATIO 0.9 (1.0-2.1); ALBUMIN 3.3 g/dL (3.5-5.0); ALT/SGPT 9 U/L (21-72); AST/SGOT 22 U/L (17-59); BLOOD UREA NITROGEN 30 mg/dL (9-20); CALCIUM 8.6 mg/dl (8.6-10.4); GFR NON-AFRICAN AMERICAN > 60
[2018-12-08] MEDS: (Novolin R) Insulin Human Regular 100 units/ml vial SC SCH ×4 (07:45→21:33)
[2018-12-08] MEDS: LIPASE/PROTEASE/AMYLASE 4,200 U ECC PO SCH ×3 (07:46→17:17)
[2018-12-08 08:30] LABS: ANISOCYTOSIS SLIGHT; LYMPHOCYTE 3 % (20-40); MONOCYTE 2 % (0-10); NEUTROPHIL 95 % (50-75); PLATELET ESTIMATE NORMAL (NORMAL); POIKILOCYTOSIS SLIGHT; TOTAL CELLS COUNTED 100
[2018-12-08 08:33] LABS: HYPOCHROMIC SLIGHT; LARGE PLATELETS PRESENT; TARGET CELLS SLIGHT
[2018-12-08] MEDS: MethylPREDNISolone 40 mg Vial IV SCH ×2 (10:46→18:19)
[2018-12-08] MEDS: Belladonna-Phenobarbital PO SCH ×3 (10:46→18:17)
[2018-12-08] MEDS: Insulin Detemir 100 units/ml Vial (Levemir) SC SCH ×2 (10:48→21:33)
[2018-12-08] MEDS: Multiple Vitamins Tab PO SCH (10:48)
[2018-12-08] MEDS: Enoxaparin 40 mg Syringe SC SCH (10:48)
--- NOTE | 2018-12-08 11:57 | CP.PCM.PN ---
Subjective - Date & Time of Evaluation Date of Evaluation: 12/08/18 Time of Evaluation: 11:54 - Subjective Subjective: still in icu dificult breathing tachycardia Objective - Vital Signs/Intake and Output Vital Signs (last 24 hours): Temp Pulse Resp BP Pulse Ox 98.8 F 97 H 27 H 137/78 96 12/08/18 04:00 12/08/18 07:00 12/08/18 07:00 12/08/18 10:49 12/08/18 07:00 Intake and Output: 12/08/18 12/08/18 06:59 18:59 Intake Total 726 Output Total 725 0 Balance 1 0 - Medications Medications: Current Medications Abacavir Sulfate (Ziagen) 300 mg PO BID [facility]; Protocol Last Admin: 12/08/18 10:47 Dose: 300 mg Acetaminophen (Tylenol 325mg Tab) 650 mg PO Q6 PRN PRN Reason: Pain, moderate (4-7) Last Admin: 12/03/18 12:48 Dose: 650 mg Albuterol/Ipratropium (Duoneb 3 Mg/0.5 Mg (3 Ml) Ud) 3 ml INH RQ4 [facility] Last Admin: 12/08/18 08:35 Dose: Not Given Alprazolam (Xanax) 0.25 mg PO TID PRN PRN Reason: Anxiety Stop: 12/15/18 18:01 Amlodipine Besylate (Norvasc) 5 mg PO DAILY [facility] Last Admin: 12/08/18 10:47 Dose: 5 mg Aspirin (Aspirin Chewable) 81 mg PO DAILY [facility] Last Admin: 12/08/18 10:48 Dose: 81 mg Atovaquone (Mepron) 1,500 mg PO HS [facility]; Protocol Last Admin: 12/07/18 21:16 Dose: 1,500 mg Belladonna/Phenobarbital () 1 tab PO TID [facility] Last Admin: 12/08/18 10:46 Dose: 1 tab Budesonide (Pulmicort Respules) 0.25 mg INH RQ12 [facility] Clotrimazole (Mycelex Reilly) 10 mg MT 5XD [facility] Last Admin: 12/08/18 10:45 Dose: 10 mg Emollient Ointment (Vaseline Oint) 5 gm TOP Q4H PRN PRN Reason: DRY LIPS Last Admin: 12/07/18 11:40 Dose: 5 gm Enoxaparin Sodium (Lovenox) 40 mg SC DAILY [facility] Last Admin: 12/08/18 10:48 Dose: 40 mg Famotidine (Pepcid) 20 mg PO 1000 [facility] Last Admin: 12/08/18 10:47 Dose: 20 mg Ferrous Gluconate (Fergon) 324 mg PO DAILY [facility] Last Admin: 12/08/18 10:46 Dose: 324 mg Furosemide (Lasix) 20 mg PO DAILY [facility] Last Admin: 12/08/18 10:49 Dose: 20 mg Gabapentin (Neurontin) 300 mg PO TID [facility] Last Admin: 12/07/18 17:21 Dose: 300 mg Guaifenesin (Robitussin) 100 mg PO Q4H PRN PRN Reason: Cough Last Admin: 12/07/18 19:46 Dose: 100 mg Insulin Detemir (Levemir) 25 unit SC Q12 [facility] Last Admin: 12/08/18 10:48 Dose: 25 units Insulin Human Regular (Novolin R) 0 unit SC [facility]; Protocol Last Admin: 12/07/18 21:17 Dose: 3 units Lamivudine (Epivir) 300 mg PO DAILY [facility] Last Admin: 12/08/18 10:47 Dose: 300 mg Methylprednisolone (Solu-Medrol) 30 mg 0.5 mg/kg (30 mg) IV BID [facility] Last Admin: 12/08/18 10:46 Dose: 30 mg Metoprolol Tartrate (Lopressor) 25 mg PO BID [facility] Last Admin: 12/08/18 10:48 Dose: 25 mg Montelukast Sodium (Singulair) 10 mg PO HS [facility] Last Admin: 12/07/18 21:16 Dose: 10 mg Multivitamins (Hexavitamin) 1 tab PO DAILY [facility] Last Admin: 12/08/18 10:48 Dose: 1 tab Raltegravir (Isentress) 400 mg PO BID [facility]; Protocol Last Admin: 12/08/18 10:44 Dose: 400 mg Rosuvastatin Calcium (Crestor) 10 mg PO HS [facility] Last Admin: 12/07/18 21:15 Dose: 10 mg - Labs Labs: 12/08/18 05:52 12/08/18 05:52 PT 18.6 SECONDS (9.7-12.2) H 11/30/18 09:35 INR 1.7 11/30/18 09:35 APTT 40 SECONDS (21-34) H 11/30/18 09:35 - Constitutional Appears: In Acute Distress - Head Exam Head Exam: ATRAUMATIC - Eye Exam Eye Exam: Normal appearance Pupil Exam: NORMAL ACCOMODATION - ENT Exam ENT Exam: Normal Exam - Neck Exam Neck Exam: Normal Inspection - Respiratory Exam Respiratory Exam: Decreased Breath Sounds, Rales, Wheezes - Cardiovascular Exam Cardiovascular Exam: Tachycardia - GI/Abdominal Exam GI & Abdominal Exam: Normal Bowel Sounds - Rectal Exam Rectal Exam: NORMAL INSPECTION - Extremities Exam Extremities Exam: Full ROM - Neurological Exam Neurological Exam: Alert, Oriented x3 - Psychiatric Exam Psychiatric exam: Normal Mood - Skin Skin Exam: Normal Color Assessment and Plan - Assessment and Plan (Free Text) Assessment: copd exacerbation ca lung hiv Plan: cont as ordered oncology consult
--- NOTE | 2018-12-08 12:41 | CP.PCM.CON ---
History of Present Illness - History of Present Illness History of Present Illness: Palliative consult requested by Doctor Abdi for goals of care discussion Patient is a 63 yo male admitted from home with cough and congestion. Patient was treated here from 11/08 - for similar COPD symptoms and under care of Doctor Jose. At that admission CT chest suggested RUL consolidation and suspicion for malignancy. Patient refused Bx and bronchoscopy at that time and had been doing so in the past. After seen by Doctor Dominic on this admission patient agreed to Bronchoscopy. Pleural washing pathology suggested fungal infection. 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 Patient transferred to ICU after acute respiratory distress on the floor. Patient placed on BiPap. His breathing remains labored. Patient occasionally refuses care and examination. Goals of care are not defined just yet. PMH: COPD, HIV ( on meds), pancreatitis, ex drug user, last time was 15 years ago, per EMS report his small apartment was full of garbage Soc. Hx: single, sister Levon Loya is a contact center specialist [facility]. Hx: patient denied Review of Systems - Constitutional Constitutional: Fatigue, Weakness - EENT Eyes: absent: As Per HPI, Blind Spots, Blurred Vision, Change in Vision, Decreased Night Vision, Diplopia, Discharge, Dry Eye, Exophthalmos, Floaters, Irritation, Itchy Eyes, Loss of Peripheral Vision, Pain, Photophobia, Requires Corrective Lenses, Sees Flashes, Spots in Vision, Tunnel Vision, Other Visual Disturbances, Loss of Vision, Other Ears: absent: As Per HPI, Decreased Hearing, Ear Discharge, Ear Pain, Tinnitus, Abnormal Hearing, Disequilibrium, Dizziness, Other Nose/Mouth/Throat: absent: As Per HPI, Epistaxis, Nasal Congestion, Nasal Discharge, Nasal Obstruction, Nasal Trauma, Nose Pain, Post Nasal Drip, Sinus Pain, Sinus Pressure, Bleeding Gums, Change in Voice, Dental Pain, Dry Mouth, Dysphagia, Halitosis, Hoarsness, Lip Swelling, Mouth Lesions, Mouth Pain, Odynophagia, Sore Throat, Throat Swelling, Tongue Swelling, Facial Pain, Neck Pain, Neck Mass, Other - Cardiovascular Cardiovascular: Dyspnea, Dyspnea on Exertion, Irregular Heart Rhythm, Rapid Heart Rate - Respiratory Respiratory: Dyspnea on Exertion, Wheezing, Chest Congestion - Gastrointestinal Gastrointestinal: absent: As Per HPI, Abdominal Pain, Belching, Bloating, Change in Bowel Habits, Change in Stool Character, Coffee Ground Emesis, Constipation, Cramping, Diarrhea, Dyspepsia, Dysphagia, Early Satiety, Excessive Flatus, Fecal Incontinence, Heartburn, Hematemesis, Hematochezia, Loose Stools, Melena, Nausea, Odynophagia, Temesmus, Vomiting, Other - Genitourinary Genitourinary: absent: As Per HPI, Change in Urinary Stream, Difficulty Urinating, Dysuria, Flank Pain, Hematuria, Pyuria, Nocturia, Urinary In continence, Urinary Frequency, Urinary Hesitance, Urinary Urgency, Voiding Freq/Small Amts, Freq UTI, Hx Renal/Bladder Calculi, Hx /Renal Surgery, Bladder Distension, Other - Musculoskeletal Musculoskeletal: Arthralgias, Muscle Weakness, Stiffness - Integumentary Integumentary: Dry Skin - Neurological Neurological: Behavioral Changes - Psychiatric Psychiatric: Irritability - Endocrine Endocrine: absent: As Per HPI, Change in Body Appearance, Change in Libido, Cold Intolorance, Deepening of Voice, Excessive Sweating, Fatigue, Flushing, Heat Intolorance, Increase in Ring/Shoe/Hat Size, Palpitations, Polydipsia, Polyphagia, Polyuria, Other - Hematologic/Lymphatic Hematologic: absent: As Per HPI, Easy Bleeding, Easy Bruising, Lymphadenopathy, Other Past Patient History - Infectious Disease Hx of Infectious Diseases: None - Tetanus Immunizations Tetanus Immunization: Unknown - Past Medical History & Family History Past Medical History?: Yes - Past Social History Smoking Status: Former Smoker - CARDIAC Hx Pacemaker: No - PULMONARY Hx Asthma: No (denies) Hx Bronchitis: Yes Hx Chronic Obstructive Pulmonary Disease (COPD): Yes Hx Emphysema: Yes Hx Pneumonia: Yes (OCT 2018) Hx Sleep Apnea: Yes (occasional uses bipap) - NEUROLOGICAL Hx Seizures: No - HEENT Hx HEENT Problems: Yes Hx Cataracts: Yes (right eye sx) - RENAL Hx Chronic Kidney Disease: No - ENDOCRINE/METABOLIC Hx Endocrine Disorders: Yes Hx Diabetes Mellitus Type 2: Yes - HEMATOLOGICAL/ONCOLOGICAL Hx Cancer: No - INTEGUMENTARY Hx Dermatological Problems: No - MUSCULOSKELETAL/RHEUMATOLOGICAL Hx Arthritis: Yes (KNEES) Hx Falls: No Hx Fractures: (FACIAL FRACTURE WITH PLATE,HAD JAW SX TOO) - GASTROINTESTINAL Hx Pancreatitis: Yes - GENITOURINARY/GYNECOLOGICAL Hx Sexually Transmitted Disorders: No - PSYCHIATRIC Hx Anxiety: Yes Hx Substance Use: No - SURGICAL HISTORY Hx Mastectomy: No - ANESTHESIA Hx Anesthesia: Yes Hx Anesthesia Reactions: No Hx Malignant Hyperthermia: No Meds Allergies/Adverse Reactions: Allergies Allergy/AdvReac Type Severity Reaction Status Date / Time No Known Allergies Allergy Verified 11/30/18 09:28 - Medications Medications: Current Medications Abacavir Sulfate (Ziagen) 300 mg PO BID [facility]; Protocol Last Admin: 12/08/18 10:47 Dose: 300 mg Acetaminophen (Tylenol 325mg Tab) 650 mg PO Q6 PRN PRN Reason: Pain, moderate (4-7) Last Admin: 12/03/18 12:48 Dose: 650 mg Albuterol/Ipratropium (Duoneb 3 Mg/0.5 Mg (3 Ml) Ud) 3 ml INH RQ4 [facility] Last Admin: 12/08/18 08:35 Dose: Not Given Alprazolam (Xanax) 0.25 mg PO TID PRN PRN Reason: Anxiety Stop: 12/15/18 18:01 Amlodipine Besylate (Norvasc) 5 mg PO DAILY [facility] Last Admin: 12/08/18 10:47 Dose: 5 mg Aspirin (Aspirin Chewable) 81 mg PO DAILY [facility] Last Admin: 12/08/18 10:48 Dose: 81 mg Atovaquone (Mepron) 1,500 mg PO HS [facility]; Protocol Last Admin: 12/07/18 21:16 Dose: 1,500 mg Belladonna/Phenobarbital () 1 tab PO TID [facility] Last Admin: 12/08/18 10:46 Dose: 1 tab Budesonide (Pulmicort Respules) 0.25 mg INH RQ12 [facility] Clotrimazole (Mycelex Reilly) 10 mg MT 5XD [facility] Last Admin: 12/08/18 10:45 Dose: 10 mg Emollient Ointment (Vaseline Oint) 5 gm TOP Q4H PRN PRN Reason: DRY LIPS Last Admin: 12/07/18 11:40 Dose: 5 gm Enoxaparin Sodium (Lovenox) 40 mg SC DAILY [facility] Last Admin: 12/08/18 10:48 Dose: 40 mg Famotidine (Pepcid) 20 mg PO 1000 [facility] Last Admin: 12/08/18 10:47 Dose: 20 mg Ferrous Gluconate (Fergon) 324 mg PO DAILY [facility] Last Admin: 12/08/18 10:46 Dose: 324 mg Furosemide (Lasix) 20 mg PO DAILY [facility] Last Admin: 12/08/18 10:49 Dose: 20 mg Gabapentin (Neurontin) 300 mg PO TID [facility] Last Admin: 12/07/18 17:21 Dose: 300 mg Guaifenesin (Robitussin) 100 mg PO Q4H PRN PRN Reason: Cough Last Admin: 12/07/18 19:46 Dose: 100 mg Insulin Detemir (Levemir) 25 unit SC Q12 [facility] Last Admin: 12/08/18 10:48 Dose: 25 units Insulin Human Regular (Novolin R) 0 unit SC ACHS [facility]; Protocol Last Admin: 12/07/18 21:17 Dose: 3 units Lamivudine (Epivir) 300 mg PO DAILY [facility] Last Admin: 12/08/18 10:47 Dose: 300 mg Methylprednisolone (Solu-Medrol) 30 mg 0.5 mg/kg (30 mg) IV BID [facility] Last Admin: 12/08/18 10:46 Dose: 30 mg Metoprolol Tartrate (Lopressor) 25 mg PO BID [facility] Last Admin: 12/08/18 10:48 Dose: 25 mg Montelukast Sodium (Singulair) 10 mg PO [facility] Last Admin: 12/07/18 21:16 Dose: 10 mg Multivitamins (Hexavitamin) 1 tab PO DAILY [facility] Last Admin: 12/08/18 10:48 Dose: 1 tab Raltegravir (Isentress) 400 mg PO BID [facility]; Protocol Last Admin: 12/08/18 10:44 Dose: 400 mg Rosuvastatin Calcium (Crestor) 10 mg PO [facility] Last Admin: 12/07/18 21:15 Dose: 10 mg Physical Exam - Constitutional Appears: In Acute Distress, Chronically Ill - Head Exam Head Exam: ATRAUMATIC, NORMAL INSPECTION, NORMOCEPHALIC - Eye Exam Eye Exam: EOMI, Normal appearance, PERRL Pupil Exam: NORMAL ACCOMODATION, PERRL - ENT Exam ENT Exam: Mucous Membranes Dry - Neck Exam Neck exam: Positive for: Normal Inspection - Respiratory Exam Respiratory Exam: Accessory Muscle Use, Decreased Breath Sounds, Respiratory Distress - Cardiovascular Exam Cardiovascular Exam: Tachycardia, Irregular Rhythm - GI/Abdominal Exam GI & Abdominal Exam: Normal Bowel Sounds, Soft - Rectal Exam Rectal Exam: Deferred - Exam Exam: NORMAL INSPECTION - Extremities Exam Extremities exam: Positive for: pedal edema, pedal pulses present Additional comments: poor hygiene of toe nails - Back Exam Back exam: NORMAL INSPECTION - Neurological Exam Neurological exam: Alert, Oriented x3 - Psychiatric Exam Psychiatric exam: Agitated, Anxious - Skin Skin Exam: Abrasion, Dry, Pallor Results - Vital Signs Recent Vital Signs: Last Vital Signs Temp 98.8 F 12/08/18 04:00 Pulse 97 H 12/08/18 07:00 Resp 27 H 12/08/18 07:00 BP 137/78 12/08/18 10:49 Pulse Ox 96 12/08/18 07:00 - Labs Result Diagrams: 12/08/18 05:52 12/08/18 05:52 Labs: Laboratory Results - last 24 hr 12/07/18 12/07/18 12/08/18 16:19 20:56 05:52 WBC 21.1 H RBC 3.29 L Hgb 8.6 L Hct 28.0 L MCV 85.0 MCH 26.0 L MCHC 30.6 L RDW 16.9 H Plt Count 375 MPV 8.5 Neut % (Auto) 91.6 H Lymph % (Auto) 4.2 L Gaston % (Auto) 4.1 Eos % (Auto) 0.0 Baso % (Auto) 0.1 Neut # (Auto) 19.3 H Lymph # (Auto) 0.9 L Gaston # (Auto) 0.9 H Eos # (Auto) 0.0 Baso # (Auto) 0.0 Neutrophils % (Manual) 95 H Lymphocytes % (Manual) 3 L Monocytes % (Manual) 2 Platelet Estimate Normal Large Platelets Present Hypochromasia (manual) Slight Poikilocytosis (manual Slight Anisocytosis (manual) Slight Target Cells Slight Sodium Potassium Chloride Carbon Dioxide Anion Gap BUN Creatinine Est GFR ( Amer) Est GFR (Non-Af Amer) POC Glucose (mg/dL) 221 H 352 H Random Glucose Calcium Phosphorus Magnesium Total Bilirubin AST ALT Alkaline Phosphatase Total Protein Albumin Globulin Albumin/Globulin Ratio 12/08/18 12/08/18 12/08/18 05:52 07:19 11:15 WBC RBC Hgb Hct MCV MCH MCHC RDW Plt Count MPV Neut % (Auto) Lymph % (Auto) Gaston % (Auto) Eos % (Auto) Baso % (Auto) Neut # (Auto) Lymph # (Auto) Gaston # (Auto) Eos # (Auto) Baso # (Auto) Neutrophils % (Manual) Lymphocytes % (Manual) Monocytes % (Manual) Platelet Estimate Large Platelets Hypochromasia (manual) Poikilocytosis (manual Anisocytosis (manual) Target Cells Sodium 134 Potassium 4.6 Chloride 94 L Carbon Dioxide 34 H Anion Gap 11 BUN 30 H Creatinine 0.8 Est GFR ( Amer) > 60 Est GFR (Non-Af Amer) > 60 POC Glucose (mg/dL) 349 H 243 H Random Glucose 375 H D Calcium 8.6 Phosphorus 2.7 Magnesium 2.6 H Total Bilirubin 0.4 AST 22 ALT 9 L D Alkaline Phosphatase 258 H Total Protein 6.7 Albumin 3.3 L Globulin 3.5 Albumin/Globulin Ratio 0.9 L Assessment & Plan - Assessment and Plan (Free Text) Assessment: Palliative consult Full Code, there is no Advance directive on chart, PPS 10% I reviewed all medical records and diagnostic studies, examined and interviewed patient in the bed. Patient is alert, oriented, makes eye contacts, fallow simple commends. Affect is irritated. It is difficult for patient to talk due to BiPap. Patient accepted goals of care discussion. Skin is dry, poor skin turgor, poor hygiene, long finger nails, there is some echymosis to both arms. Breathing is labored, shallow breath sounds, patient unable to speak in full sentences, RR 27, O2Sat 97% on BiPap HR 97, irregular rhythm, denies chest pain. Abdomen soft, tolerates small amount of food at times due to SOB, denies constipation/diarrhea. GI consult called for gastric ulcer evaluation. CT abdomen suggested. There is active and passive ROM to upper and lower extremities, pedal pulses present, abrasions of LEs, no open wounds. BP 119/68, HR 97, afebrile. WBC 21.0, Hb 8.6, + opiates in urine, UTI + yeast Meds: Lasix PO daily, HIV meds, Neurontin 300 mg TID, Robitussin 100 mg PO Q ^ hr PRN Goals of care discussed with patient. I elicited his understanding about his condition and his expectations of care. Patient reported being aware of cancer diagnosis. He admitted being concerned about it. However, patient does not want to undergo further treatment of cancer if suggested by Oncology.I suggested that without treatment his condition would only get worse and he should seek professional help. Patient remained quiet. Code status discussed. Patient stated understanding of DNR/DNI as he was intubated in the past. If his breathing gets worse that it is and he should need assitance with MV, patient stated he would want to be intubated again , but only for 7 days. If after 7 days he is unable to be weaned off he would want his sister Vincenzo to sign removal of life support. I shared this with Clarisse CHILDS and Doctor Jin and will call meron Loya to share this with her. Impression * Acute respiratory disease * Lung cancer * Productive cough * Lack of family support * Drugs abuse * Patient wishes to be place on aggressive measures if his condition gets worse, but only X 7 days. If he does not recover within 7 days, patient wishes his sister Vincenzo to sign removal of life support Suggestion * Continue BiPap * Continue Lasix * Continue Robitussin * MV support if needed * Sister Vincenzo [phone] emergency contact and decision maker if patient loses capacity to do so Advance Care planing 47 min. Palliative care will continue to fallow along as needed. I will call sister Vincenzo and let her know about patient's wishes
--- NOTE | 2018-12-08 13:06 | PN ---
DATE: 12/08/2018 LOCATION: ICU 7. SUBJECTIVE: This 63-year-old male seen and examined in rounds without significant clinical changes, somewhat restless with period of shortness of breath on nasal cannula but no reported actual chest pain, palpitation or evidence of active GI bleeding. The entire chart is reviewed including the most recent lab results with today's lab showed white blood cells of 21.1, hemoglobin 8.6, hematocrit 28 with normal platelet count and CO2 content 34, glucose 349, magnesium 2.6, alkaline phosphatase 258, albumin 3.3. PHYSICAL EXAMINATION: GENERAL: A 63-year-old male, somewhat anxious, restless. VITAL SIGNS: Afebrile with heart rate of 92, respiratory rate 20 to 22, blood pressure 132/74. HEENT: Showed pale dry mucous membrane. Nonicteric sclerae. LUNGS: Scattered crepitation with decreased air entry at bases bilaterally with few rhonchi. HEART: Positive S1 and S2 with increased rate. ABDOMEN: Soft with slight generalized tenderness. No mass or organomegaly. No rebound tenderness or guarding. EXTREMITIES: Without significant clubbing, cyanosis or edema. NEUROLOGIC: No reported new neurological deficits, sensory or motor. No reported new focal deficits. IMPRESSION: 1. Re-exacerbation of chronic obstructive pulmonary disease with pneumonia and reported lung mass lesion. 2. Peptic ulcer disease. 3. Anemia, most likely secondary to above. 4. Known history of human immunodeficiency virus, hepatitis C viral infection, hyperlipidemia. 5. Poorly controlled diabetes mellitus. History of sleep apnea. 6. Reported history of recurrent pancreatitis before. SUGGESTIONS: 1. Continue current management. 2. Antireflux measure. Followup in cancer markers. 3. Further recommendation to follow. Sarai Reynolds MD
--- NOTE | 2018-12-08 15:50 | CP.CCUPN ---
<Skylar Wilson - Last Filed: 12/08/18 15:46> CCU Subjective - Physician Review Subjective (Free Text): ICU progress note for Dr. Oneill Pt seen and examined this am at the bedside with Dr. Oneill. Was reportedly was intermittently on BIPAP overnight. Currently on Nasal Cannula 2 L saturation 95%. States his breathing is slightly better especially after using BIPAP. Appears anxious. Xanax 1mg STAT dose given. Otherwise, denies chest pain, fever/chills, LE edema, calf pain, n/v, diarrhea, or dysuria. Discussed case with Dr. Leon who informed patient of diagnosis. States pt may be candidate for Immunotherapy. Critical Care Time Spent (in minutes): 35 CCU Objective - Vital Signs / Intake & Output Vital Signs (Last 4 hours): Vital Signs Temp Pulse Resp BP Pulse Ox 12/08/18 07:00 97 H 27 H 119/68 96 12/08/18 06:00 100 H 18 119/78 12/08/18 05:00 90 17 121/70 98 12/08/18 04:00 98.8 F 99/72 L 12/08/18 03:59 83 22 97 Intake and Output (Last 8hrs): Intake & Output 12/07/18 12/08/18 12/08/18 22:59 06:59 14:59 Intake Total 868 240 Output Total 400 725 0 Balance 468 -485 0 Intake: Intake, IV Amount 248 Left Upper arm 248 Oral 620 240 Output: Urine 400 725 0 Urine, Voided 400 725 0 - Physical Exam Head: Positive for: Normocephalic Pupils: Positive for: PERRL Extroacular Muscles: Positive for: EOMI Conjunctiva: Positive for: Normal Mouth: Positive for: Moist Mucous Membranes Pharnyx: Positive for: Normal Respiratory/Chest: Positive for: Wheezes (End expiratory scattered), Decreased Breath Sounds (course), Rhonchi (Diffuse, partially cleares with cough ). Negative for: Respiratory Distress, Accessory Muscle Use, Rales, Retracting, Tachypneic Cardiovascular: Positive for: Regular Rate and Rhythm, Normal S1, S2 Abdomen: Positive for: Tenderness (Epigastric region ), Normal Bowel Sounds. Negative for: Distention, Peritoneal Signs, Rebound, Guarding, Hernias Upper Extremity: Positive for: Normal Inspection, NORMAL PULSES, Capillary Refill < 2s, Other (Scattered ecchymosis ) Lower Extremity: Positive for: Normal Inspection, NORMAL PULSES, Capillary Refill < 2 s. Negative for: Edema, CALF TENDERNESS Neurological: Positive for: Speech Normal Skin: Positive for: Normal Color Psychiatric: Positive for: Alert, Oriented x 3 - Medications Active Medications: Active Medications Generic Name Dose Route Start Last Admin Trade Name Freq PRN Reason Stop Dose Admin Abacavir Sulfate 300 mg 11/30/18 18:00 12/07/18 17:21 Ziagen PO 300 mg BID LAURA Administration Protocol Acetaminophen 650 mg 12/02/18 14:19 12/03/18 12:48 Tylenol 325mg Tab PO 650 mg Q6 PRN Administration Pain, moderate (4-7) Albuterol/Ipratropium 3 ml 11/30/18 16:00 12/08/18 04:00 Duoneb 3 Mg/0.5 Mg (3 Ml) Ud INH Not Given RQ4 LAURA Amlodipine Besylate 5 mg 11/30/18 14:30 12/07/18 09:45 Norvasc PO 5 mg DAILY LAURA Administration Aspirin 81 mg 12/07/18 10:00 12/07/18 09:42 Aspirin Chewable PO 81 mg DAILY LAURA Administration Atovaquone 1,500 mg 12/07/18 22:00 12/07/18 21:16 Mepron PO 1,500 mg HS LAURA Administration Protocol Belladonna/Phenobarbital 1 tab 12/05/18 14:00 12/07/18 17:20 PO 1 tab TID LAURA Administration Clotrimazole 10 mg 12/05/18 17:00 12/07/18 21:16 Mycelex Reilly MT 10 mg 5XD LAURA Administration Emollient Ointment 5 gm 12/07/18 11:27 12/07/18 11:40 Vaseline Oint TOP 5 gm Q4H PRN Administration DRY LIPS Enoxaparin Sodium 40 mg 12/07/18 10:00 12/07/18 10:04 Lovenox SC Not Given DAILY LAURA Famotidine 20 mg 12/01/18 10:00 12/07/18 09:45 Pepcid PO 20 mg 1000 LAURA Administration Ferrous Gluconate 324 mg 12/02/18 13:00 12/07/18 09:50 Fergon PO 324 mg DAILY LAURA Administration Furosemide 20 mg 11/30/18 14:30 12/07/18 09:44 Lasix PO Not Given DAILY LAURA Gabapentin 300 mg 11/30/18 18:00 12/07/18 17:21 Neurontin PO 300 mg TID LAURA Administration Guaifenesin 100 mg 12/01/18 18:05 12/07/18 19:46 Robitussin PO 100 mg Q4H PRN Administration Cough Insulin Detemir 25 unit 12/01/18 22:00 12/07/18 21:16 Levemir SC 25 units Q12 LAURA Administration Insulin Human Regular 0 unit 11/30/18 17:00 12/07/18 21:17 Novolin R SC 3 units ACHS [facility] Administration Protocol Lamivudine 300 mg 12/01/18 10:00 12/07/18 09:42 Epivir PO 300 mg DAILY [facility] Administration Methylprednisolone 30 mg 12/03/18 18:00 12/07/18 17:14 Solu-Medrol 0.5 mg/kg (30 mg) 30 mg IV Administration BID [facility] Metoprolol Tartrate 25 mg 12/07/18 10:00 12/07/18 19:08 Lopressor PO Not Given BID [facility] Montelukast Sodium 10 mg 11/30/18 22:00 12/07/18 21:16 Singulair PO 10 mg HS [facility] Administration Multivitamins 1 tab 12/02/18 13:00 12/07/18 09:43 Hexavitamin PO 1 tab DAILY [facility] Administration Raltegravir 400 mg 11/30/18 18:00 12/07/18 17:20 Isentress PO 400 mg BID [facility] Administration Protocol Rosuvastatin Calcium 10 mg 12/07/18 22:00 12/07/18 21:15 Crestor PO 10 mg HS [facility] Administration - Patient Studies Lab Studies: Microbiology Studies 12/05/18 16:42 Urine Culture - Final Urine,Clean Catch Yeast Species 12/06/18 13:00 Blood Culture - Preliminary Blood-Venous NO GROWTH AFTER 24 HOURS 12/06/18 13:30 Blood Culture - Preliminary Blood-Venous NO GROWTH AFTER 24 HOURS 12/05/18 11:00 Blood Culture - Preliminary Blood-Venous NO GROWTH AFTER 48 HOURS Lab Studies 12/08/18 12/08/18 12/08/18 Range/Units 07:19 05:52 05:52 WBC 21.1 H (4.8-10.8) K/uL RBC 3.29 L (4.40-5.90) Mil/uL Hgb 8.6 L (12.0-18.0) g/dL Hct 28.0 L (35.0-51.0) % MCV 85.0 (80.0-94.0) fL MCH 26.0 L (27.0-31.0) pg MCHC 30.6 L (33.0-37.0) g/dL RDW 16.9 H (11.5-14.5) % Plt Count 375 (130-400) K/uL MPV 8.5 (7.2-11.7) fL Neut % (Auto) 91.6 H (50.0-75.0) % Lymph % (Auto) 4.2 L (20.0-40.0) % [place] % (Auto) 4.1 (0.0-10.0) % Eos % (Auto) 0.0 (0.0-4.0) % Baso % (Auto) 0.1 (0.0-2.0) % Neut # (Auto) 19.3 H (1.8-7.0) K/uL Lymph # (Auto) 0.9 L (1.0-4.3) K/uL [place] # (Auto) 0.9 H (0.0-0.8) K/uL Eos # (Auto) 0.0 (0.0-0.7) K/uL Baso # (Auto) 0.0 (0.0-0.2) K/uL Neutrophils % (Manual) (50-75) % Lymphocytes % (Manual) (20-40) % Monocytes % (Manual) (0-10) % Platelet Estimate (NORMAL) Polychromasia Hypochromasia (manual) Anisocytosis (manual) Target Cells Sodium 134 (132-148) mmol/L Potassium 4.6 (3.6-5.2) mmol/L Chloride 94 L (98-107) mmol/L Carbon Dioxide 34 H (22-30) mmol/L Anion Gap 11 (10-20) BUN 30 H (9-20) mg/dL Creatinine 0.8 (0.8-1.5) mg/dL Est GFR ( Amer) > 60 Est GFR (Non-Af Amer) > 60 POC Glucose (mg/dL) 349 H (65-110) mg/dL Random Glucose 375 H D (75-110) mg/dL Calcium 8.6 (8.6-10.4) mg/dl Phosphorus 2.7 (2.5-4.5) mg/dL Magnesium 2.6 H (1.6-2.3) mg/dL Total Bilirubin 0.4 (0.2-1.3) mg/dL AST 22 (17-59) U/L ALT 9 L D (21-72) U/L Alkaline Phosphatase 258 H (38-126) U/L Total Protein 6.7 (6.3-8.3) g/dL Albumin 3.3 L (3.5-5.0) g/dL Globulin 3.5 (2.2-3.9) gm/dL Albumin/Globulin Ratio 0.9 L (1.0-2.1) 12/07/18 12/07/18 12/07/18 Range/Units 20:56 16:19 09:09 WBC (4.8-10.8) K/uL RBC (4.40-5.90) Mil/uL Hgb (12.0-18.0) g/dL Hct (35.0-51.0) % MCV (80.0-94.0) fL MCH (27.0-31.0) pg MCHC (33.0-37.0) g/dL RDW (11.5-14.5) % Plt Count (130-400) K/uL MPV (7.2-11.7) fL Neut % (Auto) (50.0-75.0) % Lymph % (Auto) (20.0-40.0) % [place] % (Auto) (0.0-10.0) % Eos % (Auto) (0.0-4.0) % Baso % (Auto) (0.0-2.0) % Neut # (Auto) (1.8-7.0) K/uL Lymph # (Auto) (1.0-4.3) K/uL [place] # (Auto) (0.0-0.8) K/uL Eos # (Auto) (0.0-0.7) K/uL Baso # (Auto) (0.0-0.2) K/uL Neutrophils % (Manual) (50-75) % Lymphocytes % (Manual) (20-40) % Monocytes % (Manual) (0-10) % Platelet Estimate (NORMAL) Polychromasia Hypochromasia (manual) Anisocytosis (manual) Target Cells Sodium 138 (132-148) mmol/L Potassium 3.8 (3.6-5.2) mmol/L Chloride 92 L (98-107) mmol/L Carbon Dioxide 38 H (22-30) mmol/L Anion Gap 11 (10-20) BUN 26 H (9-20) mg/dL Creatinine 0.9 (0.8-1.5) mg/dL Est GFR ( Amer) > 60 Est GFR (Non-Af Amer) > 60 POC Glucose (mg/dL) 352 H 221 H (65-110) mg/dL Random Glucose 117 H D (75-110) mg/dL Calcium 9.4 (8.6-10.4) mg/dl Phosphorus 2.0 L (2.5-4.5) mg/dL Magnesium 2.4 H (1.6-2.3) mg/dL Total Bilirubin 0.4 (0.2-1.3) mg/dL AST 41 (17-59) U/L ALT 13 L (21-72) U/L Alkaline Phosphatase 298 H D (38-126) U/L Total Protein 7.4 (6.3-8.3) g/dL Albumin 3.4 L (3.5-5.0) g/dL Globulin 3.9 (2.2-3.9) gm/dL Albumin/Globulin Ratio 0.9 L (1.0-2.1) 12/07/18 Range/Units 09:09 WBC 18.3 H (4.8-10.8) K/uL RBC 3.67 L (4.40-5.90) Mil/uL Hgb 9.5 L (12.0-18.0) g/dL Hct 30.7 L (35.0-51.0) % MCV 83.6 (80.0-94.0) fL MCH 26.0 L (27.0-31.0) pg MCHC 31.1 L (33.0-37.0) g/dL RDW 17.5 H (11.5-14.5) % Plt Count 455 H (130-400) K/uL MPV 7.8 (7.2-11.7) fL Neut % (Auto) 85.7 H (50.0-75.0) % Lymph % (Auto) 9.3 L (20.0-40.0) % [place] % (Auto) 4.9 (0.0-10.0) % Eos % (Auto) 0.0 (0.0-4.0) % Baso % (Auto) 0.1 (0.0-2.0) % Neut # (Auto) 15.7 H (1.8-7.0) K/uL Lymph # (Auto) 1.7 (1.0-4.3) K/uL [place] # (Auto) 0.9 H (0.0-0.8) K/uL Eos # (Auto) 0.0 (0.0-0.7) K/uL Baso # (Auto) 0.0 (0.0-0.2) K/uL Neutrophils % (Manual) 93 H (50-75) % Lymphocytes % (Manual) 5 L (20-40) % Monocytes % (Manual) 2 (0-10) % Platelet Estimate Increased H (NORMAL) Polychromasia Slight Hypochromasia (manual) Slight Anisocytosis (manual) Slight Target Cells Slight Sodium (132-148) mmol/L Potassium (3.6-5.2) mmol/L Chloride (98-107) mmol/L Carbon Dioxide (22-30) mmol/L Anion Gap (10-20) BUN (9-20) mg/dL Creatinine (0.8-1.5) mg/dL Est GFR ( Amer) Est GFR (Non-Af Amer) POC Glucose (mg/dL) (65-110) mg/dL Random Glucose (75-110) mg/dL Calcium (8.6-10.4) mg/dl Phosphorus (2.5-4.5) mg/dL Magnesium (1.6-2.3) mg/dL Total Bilirubin (0.2-1.3) mg/dL AST (17-59) U/L ALT (21-72) U/L Alkaline Phosphatase (38-126) U/L Total Protein (6.3-8.3) g/dL Albumin (3.5-5.0) g/dL Globulin (2.2-3.9) gm/dL Albumin/Globulin Ratio (1.0-2.1) Laboratory Results - last 24 hr 12/07/18 12/07/18 12/07/18 09:09 09:09 16:19 WBC 18.3 H RBC 3.67 L Hgb 9.5 L Hct 30.7 L MCV 83.6 MCH 26.0 L MCHC 31.1 L RDW 17.5 H Plt Count 455 H MPV 7.8 Neut % (Auto) 85.7 H Lymph % (Auto) 9.3 L [place] % (Auto) 4.9 Eos % (Auto) 0.0 Baso % (Auto) 0.1 Neut # (Auto) 15.7 H Lymph # (Auto) 1.7 [place] # (Auto) 0.9 H Eos # (Auto) 0.0 Baso # (Auto) 0.0 Neutrophils % (Manual) 93 H Lymphocytes % (Manual) 5 L Monocytes % (Manual) 2 Platelet Estimate Increased H Polychromasia Slight Hypochromasia (manual) Slight Anisocytosis (manual) Slight Target Cells Slight Sodium 138 Potassium 3.8 Chloride 92 L Carbon Dioxide 38 H Anion Gap 11 BUN 26 H Creatinine 0.9 Est GFR ( Amer) > 60 Est GFR (Non-Af Amer) > 60 POC Glucose (mg/dL) 221 H Random Glucose 117 H D Calcium 9.4 Phosphorus 2.0 L Magnesium 2.4 H Total Bilirubin 0.4 AST 41 ALT 13 L Alkaline Phosphatase 298 H D Total Protein 7.4 Albumin 3.4 L Globulin 3.9 Albumin/Globulin Ratio 0.9 L 12/07/18 12/08/18 12/08/18 20:56 05:52 05:52 WBC 21.1 H RBC 3.29 L Hgb 8.6 L Hct 28.0 L MCV 85.0 MCH 26.0 L MCHC 30.6 L RDW 16.9 H Plt Count 375 MPV 8.5 Neut % (Auto) 91.6 H Lymph % (Auto) 4.2 L [place] % (Auto) 4.1 Eos % (Auto) 0.0 Baso % (Auto) 0.1 Neut # (Auto) 19.3 H Lymph # (Auto) 0.9 L [place] # (Auto) 0.9 H Eos # (Auto) 0.0 Baso # (Auto) 0.0 Neutrophils % (Manual) Lymphocytes % (Manual) Monocytes % (Manual) Platelet Estimate Polychromasia Hypochromasia (manual) Anisocytosis (manual) Target Cells Sodium 134 Potassium 4.6 Chloride 94 L Carbon Dioxide 34 H Anion Gap 11 BUN 30 H Creatinine 0.8 Est GFR ( Amer) > 60 Est GFR (Non-Af Amer) > 60 POC Glucose (mg/dL) 352 H Random Glucose 375 H D Calcium 8.6 Phosphorus 2.7 Magnesium 2.6 H Total Bilirubin 0.4 AST 22 ALT 9 L D Alkaline Phosphatase 258 H Total Protein 6.7 Albumin 3.3 L Globulin 3.5 Albumin/Globulin Ratio 0.9 L 12/08/18 07:19 WBC RBC Hgb Hct MCV MCH MCHC RDW Plt Count MPV Neut % (Auto) Lymph % (Auto) [place] % (Auto) Eos % (Auto) Baso % (Auto) Neut # (Auto) Lymph # (Auto) [place] # (Auto) Eos # (Auto) Baso # (Auto) Neutrophils % (Manual) Lymphocytes % (Manual) Monocytes % (Manual) Platelet Estimate Polychromasia Hypochromasia (manual) Anisocytosis (manual) Target Cells Sodium Potassium Chloride Carbon Dioxide Anion Gap BUN Creatinine Est GFR ( Amer) Est GFR (Non-Af Amer) POC Glucose (mg/dL) 349 H Random Glucose Calcium Phosphorus Magnesium Total Bilirubin AST ALT Alkaline Phosphatase Total Protein Albumin Globulin Albumin/Globulin Ratio Radiology Impressions: Radiology Impressions Chest X-Ray 12/07/18 06:00 Impression: Persistent ill-defined patchy consolidative opacity seen within the right mid lung zone. Continued interval follow-up is recommended to ensure resolution and exclude underlying mass/lesion. Biapical pleural thickening with upper lobe granulomatous changes. Fingerstick Blood Sugar Results: 352 Critical Care Progress Note - Nutrition Nutrition: Nutrition Category Date Time Status Diabetic [Consistent Carbohydrate] [DIET] Diets 12/02/18 Lunch Active Assessment/Plan - Assessment and Plan (Free Text) Assessment: 63 y o male with PMhx of Lung Mass (Pathology from 12/04 reports Non Small Cell Carcinoma, favoring Squamous Cell Carcinoma), COPD, HTN, DM, Hep C, chronic pancreatitis,hf of IVDA who presented to the ED with worsening sob and admitted to floors. Pt reported at time that he was at home and felt that the room was too hot and thus felt short of breath. [employer] was called as pt was found with AMS, oxygen desaturation, pinpoint pupils, became more alert after Narcan (strong suspicion of opiate intoxication during hospital admission). Was admitted to ICU for monitoring of respiratory status. Plan: Neuro - AAO x3 (able to state name, place, and date with month and year) - No gross neurological deficits - Psych Consulted, Dr. Spangler. Unspecified Anxiety disorder. Will contact today for f/u as pt's anxiety does not often appeared controlled. - Head CT 12/01: No acute intracranial hemorrhage. Age related Atrophy - Xanax 0.25 po TID prn Cardio - Hemodynamically stable w/ slight tachycarida in 95-110 (Sinus) - C/W Norvasc, Metroprolol, and Lasix Pulm - Respiratory distress, slightly improved. Will continue to monitor respiratory status. - Will maintain BiPAP at night only as pt CO2 is normal with slight alkalosis on ABG - Etiology likely multifactorial: COPD exac vs Lung Ca structural effect - ABG (12/06): Respiratory Alkalosis w/ concurrent Metabolic Alkalosis - Repeat CXR ordered for this am - Chest X-Ray 11/30-Interstitial infiltrate or edema. More focal rounded opacities possibly multifocal consolidations however neoplasm cannot be excluded. - Chest X-ray 12/07- Persistent ill defined patchy consolidation opacity within R. mid lung zone - Bronchodilators treatments scheduled q4h - Singulair daily, Budesonide q12 started - Robitussin prn - Methylprednisolone 30mg IV BID - Lasix 20mg daily. 40mg IV STAT dose given today GI - Dr. Pagan consulted for abd pain, recs appreciated - Abd XR 12/04: R upper lobe mass concerning for malignancy - correlate clinically with prior pathology results. No evidence of mechanical bowel obstruction. Moderate stool retention. No free air seen please note prior CT chest report findings regarding liver lesions. 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 Currently on Mycelex - HIV, on HAART therapy - Mepron started as ppx has there is a suspicion that current CD4 level is lower. CD4 panel and LDH ordered. - S/P Vanco, Cepfepime x 2 days. Discontinued on 12/06 as low suspicion for PNU - ID, Dr. Thompson, on board. Recs appreciated - F/U Sputum Cx, AFP Sputum Cx, LDH, Quantiferon Heme/Onc - Recent Hgb/Hct 8.6/ (chronically anemic, likley dilution effect as well), Normocytic - Ferrous Sulfate daily - Platelet 375 - R. Upper lobe biopsy (12/04): NSCL favoring SCC. Likely metastatic as liver l esion seen in prior CT reports - F/U CEA, CA 19-9, AFP Endocrine - Diabetic, Hga1c 9.1 - Accuchecks in 300's, likely effect of steroids - Detemir 25mg q12 - ISS moderate coverage, Hypoglycemic protocol, Accucheck ACHS Lines -Midline PICC, Left Basilic Vein placed 12/04 Code Status -Full Code, confirmed with patient on 12/08 PPX: -Pepcid po for GI ppx -Lovenox daily for DVT ppx Next of Kin -Vincenzo Dos Santos, Sister - Pt states she is aware of Cancer diagnosis but does not know about HIV Pt seen, examined with, and plan discussed with Dr. Oneill, attending physician. Skylar Wilson, PGY2 <Jose Alejandro Oneill - Last Filed: 12/09/18 20:13> CCU Objective - Vital Signs / Intake & Output Vital Signs (Last 4 hours): Vital Signs Pulse Resp BP Pulse Ox 12/09/18 19:00 99 H 29 H 99 12/09/18 18:51 99 H 28 H 123/84 98 12/09/18 18:00 121 H 24 94 L 12/09/18 17:50 111 H 24 113/78 98 12/09/18 17:22 111 H 15 112/80 04/06/19 17:21 112/80 12/09/18 17:00 107 H 25 H 97 12/09/18 16:50 101 H 22 105/72 95 Intake and Output (Last 8hrs): Intake & Output 12/09/18 12/09/18 12/09/18 06:59 14:59 22:59 Intake Total 580 250 Output Total 1000 300 Balance -420 -50 Weight 151 lb Intake: Oral 580 250 Output: Urine 1000 300 Urine, Voided 1000 300 Emesis 0 Other: # Voids Urine, Voided 1 # Bowel Movements 1 - Medications Active Medications: Active Medications Generic Name Dose Route Start Last Admin Trade Name Freq PRN Reason Stop Dose Admin Abacavir Sulfate 300 mg 11/30/18 18:00 12/09/18 17:25 Ziagen PO 300 mg BID LAURA Administration Protocol Acetaminophen 650 mg 12/02/18 14:19 12/03/18 12:48 Tylenol 325mg Tab PO 650 mg Q6 PRN Administration Pain, moderate (4-7) Albuterol/Ipratropium 3 ml 11/30/18 16:00 12/09/18 20:05 Duoneb 3 Mg/0.5 Mg (3 Ml) Ud INH Not Given RQ4 LAURA Alprazolam 0.25 mg 12/08/18 18:00 Xanax PO 12/15/18 18:01 Q8H PRN Anxiety Amlodipine Besylate 5 mg 11/30/18 14:30 12/09/18 09:10 Norvasc PO 5 mg DAILY [facility] Administration Aspirin 81 mg 12/07/18 10:00 12/09/18 09:09 Aspirin Chewable PO 81 mg DAILY [facility] Administration Belladonna/Phenobarbital 1 tab 12/05/18 14:00 12/09/18 17:25 PO 1 tab TID LAURA Administration Budesonide 0.25 mg 12/08/18 20:00 12/09/18 20:05 Pulmicort Respules INH Not Given RQ12 LAURA Clotrimazole 10 mg 12/05/18 17:00 12/09/18 17:25 Mycelex Reilly MT 10 mg 5XD LAURA Administration Emollient Ointment 5 gm 12/07/18 11:27 12/08/18 21:47 Vaseline Oint TOP 5 gm Q4H PRN Administration DRY LIPS Enoxaparin Sodium 40 mg 12/07/18 10:00 12/09/18 09:11 Lovenox SC 40 mg DAILY [facility] Administration Famotidine 20 mg 12/01/18 10:00 12/09/18 09:10 Pepcid PO 20 mg 1000 LAURA Administration Ferrous Gluconate 324 mg 12/02/18 13:00 12/09/18 09:10 Fergon PO 324 mg DAILY [facility] Administration Furosemide 20 mg 11/30/18 14:30 12/09/18 09:09 Lasix PO 20 mg DAILY [facility] Administration Gabapentin 300 mg 11/30/18 18:00 12/09/18 17:25 Neurontin PO 300 mg TID [facility] Administration Guaifenesin 100 mg 12/01/18 18:05 12/09/18 11:45 Robitussin PO 100 mg Q4H PRN Administration Cough Insulin Detemir 25 unit 12/01/18 22:00 12/09/18 09:28 Levemir SC 25 units Q12 LAURA Administration Insulin Human Regular 0 unit 11/30/18 17:00 12/09/18 17:26 Novolin R SC 2 units ACHS [facility] Administration Protocol Lamivudine 300 mg 12/01/18 10:00 12/09/18 09:08 Epivir PO 300 mg DAILY [facility] Administration Methylprednisolone 30 mg 12/03/18 18:00 12/09/18 17:25 Solu-Medrol 0.5 mg/kg (30 mg) 30 mg IV Administration BID [facility] Metoprolol Tartrate 25 mg 12/07/18 10:00 12/09/18 17:21 Lopressor PO 25 mg BID [facility] Administration Montelukast Sodium 10 mg 11/30/18 22:00 12/08/18 21:33 Singulair PO 10 mg HS [facility] Administration Multivitamins 1 tab 12/02/18 13:00 12/09/18 09:10 Hexavitamin PO 1 tab DAILY [facility] Administration Raltegravir 400 mg 11/30/18 18:00 12/09/18 17:25 Isentress PO 400 mg BID [facility] Administration Protocol Rosuvastatin Calcium 10 mg 12/07/18 22:00 12/08/18 21:33 Crestor PO 10 mg HS [facility] Administration - Patient Studies Lab Studies: Microbiology Studies 12/06/18 13:30 Blood Culture - Preliminary Blood-Venous NO GROWTH AFTER 3 DAYS 12/06/18 13:00 Blood Culture - Preliminary Blood-Venous NO GROWTH AFTER 3 DAYS 12/05/18 11:00 Blood Culture - Preliminary Blood-Venous NO GROWTH AFTER 4 DAYS 12/02/18 10:49 Fungal Culture - Final Bronchial Washings Carmen Albicans Lab Studies 12/09/18 12/09/18 12/09/18 Range/Units 16:29 11:27 07:36 WBC (4.8-10.8) K/uL RBC (4.40-5.90) Mil/uL Hgb (12.0-18.0) g/dL Hct (35.0-51.0) % MCV (80.0-94.0) fL MCH (27.0-31.0) pg MCHC (33.0-37.0) g/dL RDW (11.5-14.5) % Plt Count (130-400) K/uL MPV (7.2-11.7) fL Neut % (Auto) (50.0-75.0) % Lymph % (Auto) (20.0-40.0) % [place] % (Auto) (0.0-10.0) % Eos % (Auto) (0.0-4.0) % Baso % (Auto) (0.0-2.0) % Neut # (Auto) (1.8-7.0) K/uL Lymph # (Auto) (1.0-4.3) K/uL [place] # (Auto) (0.0-0.8) K/uL Eos # (Auto) (0.0-0.7) K/uL Baso # (Auto) (0.0-0.2) K/uL Neutrophils % (Manual) (50-75) % Lymphocytes % (Manual) (20-40) % Monocytes % (Manual) (0-10) % Toxic Granulation Platelet Estimate (NORMAL) Large Platelets Giant Platelets Polychromasia Hypochromasia (manual) Poikilocytosis (manual Anisocytosis (manual) Microcytosis (manual) Target Cells Ovalocytes Schistocytes Puncture Site pCO2 (35-45) mm/Hg pO2 (80-100) mm/Hg HCO3 (21-28) mmol/L ABG pH (7.35-7.45) ABG Total CO2 (22-28) mmol/L ABG O2 Saturation (95-98) % ABG Base Excess (-2.0-3.0) mmol/L ABG Hemoglobin (11.7-17.4) g/dL ABG Carboxyhemoglobin (0.5-1.5) % POC ABG HHb (Measured) (0.0-5.0) % ABG Methemoglobin (0.0-3.0) % Narinder Test Hgb O2 Saturation (95.0-98.0) % Liter Flow Sodium (132-148) mmol/L Potassium (3.6-5.2) mmol/L Chloride (98-107) mmol/L Carbon Dioxide (22-30) mmol/L Anion Gap (10-20) BUN (9-20) mg/dL Creatinine (0.8-1.5) mg/dL Est GFR ( Amer) Est GFR (Non-Af Amer) POC Glucose (mg/dL) 176 H 281 H 268 H (65-110) mg/dL Random Glucose (75-110) mg/dL Calcium (8.6-10.4) mg/dl Phosphorus (2.5-4.5) mg/dL Magnesium (1.6-2.3) mg/dL Total Bilirubin (0.2-1.3) mg/dL AST (17-59) U/L ALT (21-72) U/L Alkaline Phosphatase (38-126) U/L Lactate Dehydrogenase (313-618) U/L Total Protein (6.3-8.3) g/dL Albumin (3.5-5.0) g/dL Globulin (2.2-3.9) gm/dL Albumin/Globulin Ratio (1.0-2.1) 12/09/18 12/09/18 12/09/18 Range/Units 06:31 06:31 06:31 WBC 20.9 H (4.8-10.8) K/uL RBC 3.39 L (4.40-5.90) Mil/uL Hgb 8.9 L (12.0-18.0) g/dL Hct 28.3 L (35.0-51.0) % MCV 83.4 (80.0-94.0) fL MCH 26.3 L (27.0-31.0) pg MCHC 31.5 L (33.0-37.0) g/dL RDW 16.7 H (11.5-14.5) % Plt Count 392 (130-400) K/uL MPV 8.5 (7.2-11.7) fL Neut % (Auto) 92.6 H (50.0-75.0) % Lymph % (Auto) 3.4 L (20.0-40.0) % [place] % (Auto) 4.0 (0.0-10.0) % Eos % (Auto) 0.0 (0.0-4.0) % Baso % (Auto) 0.0 (0.0-2.0) % Neut # (Auto) 19.3 H (1.8-7.0) K/uL Lymph # (Auto) 0.7 L (1.0-4.3) K/uL [place] # (Auto) 0.8 (0.0-0.8) K/uL Eos # (Auto) 0.0 (0.0-0.7) K/uL Baso # (Auto) 0.0 (0.0-0.2) K/uL Neutrophils % (Manual) 90 H (50-75) % Lymphocytes % (Manual) 4 L (20-40) % Monocytes % (Manual) 6 (0-10) % Toxic Granulation Present Platelet Estimate Normal (NORMAL) Large Platelets Present Giant Platelets Present Polychromasia Slight Hypochromasia (manual) Moderate Poikilocytosis (manual Slight Anisocytosis (manual) Moderate Microcytosis (manual) Slight Target Cells Slight Ovalocytes Slight Schistocytes Slight Puncture Site pCO2 (35-45) mm/Hg pO2 (80-100) mm/Hg HCO3 (21-28) mmol/L ABG pH (7.35-7.45) ABG Total CO2 (22-28) mmol/L ABG O2 Saturation (95-98) % ABG Base Excess (-2.0-3.0) mmol/L ABG Hemoglobin (11.7-17.4) g/dL ABG Carboxyhemoglobin (0.5-1.5) % POC ABG HHb (Measured) (0.0-5.0) % ABG Methemoglobin (0.0-3.0) % Narinder Test Hgb O2 Saturation (95.0-98.0) % Liter Flow Sodium 135 (132-148) mmol/L Potassium 3.8 (3.6-5.2) mmol/L Chloride 91 L (98-107) mmol/L Carbon Dioxide 37 H (22-30) mmol/L Anion Gap 10 (10-20) BUN 28 H (9-20) mg/dL Creatinine 0.7 L (0.8-1.5) mg/dL Est GFR ( Amer) > 60 Est GFR (Non-Af Amer) > 60 POC Glucose (mg/dL) (65-110) mg/dL Random Glucose 264 H D (75-110) mg/dL Calcium 8.9 (8.6-10.4) mg/dl Phosphorus 2.5 (2.5-4.5) mg/dL Magnesium 2.5 H (1.6-2.3) mg/dL Total Bilirubin 0.4 (0.2-1.3) mg/dL AST 21 (17-59) U/L ALT 10 L (21-72) U/L Alkaline Phosphatase 305 H (38-126) U/L Lactate Dehydrogenase 419 (313-618) U/L Total Protein 6.9 (6.3-8.3) g/dL Albumin 3.3 L (3.5-5.0) g/dL Globulin 3.6 (2.2-3.9) gm/dL Albumin/Globulin Ratio 0.9 L (1.0-2.1) 12/09/18 12/09/18 12/08/18 Range/Units 05:35 00:08 21:28 WBC (4.8-10.8) K/uL RBC (4.40-5.90) Mil/uL Hgb (12.0-18.0) g/dL Hct (35.0-51.0) % MCV (80.0-94.0) fL MCH (27.0-31.0) pg MCHC (33.0-37.0) g/dL RDW (11.5-14.5) % Plt Count (130-400) K/uL MPV (7.2-11.7) fL Neut % (Auto) (50.0-75.0) % Lymph % (Auto) (20.0-40.0) % [place] % (Auto) (0.0-10.0) % Eos % (Auto) (0.0-4.0) % Baso % (Auto) (0.0-2.0) % Neut # (Auto) (1.8-7.0) K/uL Lymph # (Auto) (1.0-4.3) K/uL [place] # (Auto) (0.0-0.8) K/uL Eos # (Auto) (0.0-0.7) K/uL Baso # (Auto) (0.0-0.2) K/uL Neutrophils % (Manual) (50-75) % Lymphocytes % (Manual) (20-40) % Monocytes % (Manual) (0-10) % Toxic Granulation Platelet Estimate (NORMAL) Large Platelets Giant Platelets Polychromasia Hypochromasia (manual) Poikilocytosis (manual Anisocytosis (manual) Microcytosis (manual) Target Cells Ovalocytes Schistocytes Puncture Site Lr pCO2 43 (35-45) mm/Hg pO2 107 H (80-100) mm/Hg HCO3 35.1 H (21-28) mmol/L ABG pH 7.54 H (7.35-7.45) ABG Total CO2 38.1 H (22-28) mmol/L ABG O2 Saturation 99.4 H (95-98) % ABG Base Excess 13.0 H (-2.0-3.0) mmol/L ABG Hemoglobin 9.3 L (11.7-17.4) g/dL ABG Carboxyhemoglobin 1.9 H (0.5-1.5) % POC ABG HHb (Measured) 0.6 (0.0-5.0) % ABG Methemoglobin 1.1 (0.0-3.0) % Narinder Test Pos Hgb O2 Saturation 96.4 (95.0-98.0) % Liter Flow 3.0 Sodium (132-148) mmol/L Potassium (3.6-5.2) mmol/L Chloride (98-107) mmol/L Carbon Dioxide (22-30) mmol/L Anion Gap (10-20) BUN (9-20) mg/dL Creatinine (0.8-1.5) mg/dL Est GFR ( Amer) Est GFR (Non-Af Amer) POC Glucose (mg/dL) 457 H* > 500 H* (65-110) mg/dL Random Glucose (75-110) mg/dL Calcium (8.6-10.4) mg/dl Phosphorus (2.5-4.5) mg/dL Magnesium (1.6-2.3) mg/dL Total Bilirubin (0.2-1.3) mg/dL AST (17-59) U/L ALT (21-72) U/L Alkaline Phosphatase (38-126) U/L Lactate Dehydrogenase (313-618) U/L Total Protein (6.3-8.3) g/dL Albumin (3.5-5.0) g/dL Globulin (2.2-3.9) gm/dL Albumin/Globulin Ratio (1.0-2.1) Laboratory Results - last 24 hr 12/08/18 12/09/18 12/09/18 21:28 00:08 05:35 WBC RBC Hgb Hct MCV MCH MCHC RDW Plt Count MPV Neut % (Auto) Lymph % (Auto) [place] % (Auto) Eos % (Auto) Baso % (Auto) Neut # (Auto) Lymph # (Auto) [place] # (Auto) Eos # (Auto) Baso # (Auto) Neutrophils % (Manual) Lymphocytes % (Manual) Monocytes % (Manual) Toxic Granulation Platelet Estimate Large Platelets Giant Platelets Polychromasia Hypochromasia (manual) Poikilocytosis (manual Anisocytosis (manual) Microcytosis (manual) Target Cells Ovalocytes Schistocytes Puncture Site Lr pCO2 43 pO2 107 H HCO3 35.1 H ABG pH 7.54 H ABG Total CO2 38.1 H ABG O2 Saturation 99.4 H ABG Base Excess 13.0 H ABG Hemoglobin 9.3 L ABG Carboxyhemoglobin 1.9 H POC ABG HHb (Measured) 0.6 ABG Methemoglobin 1.1 Narinder Test Pos Hgb O2 Saturation 96.4 Liter Flow 3.0 Sodium Potassium Chloride Carbon Dioxide Anion Gap BUN Creatinine Est GFR ( Amer) Est GFR (Non-Af Amer) POC Glucose (mg/dL) > 500 H* 457 H* Random Glucose Calcium Phosphorus Magnesium Total Bilirubin AST ALT Alkaline Phosphatase Lactate Dehydrogenase Total Protein Albumin Globulin Albumin/Globulin Ratio 12/09/18 12/09/18 12/09/18 06:31 06:31 06:31 WBC 20.9 H RBC 3.39 L Hgb 8.9 L Hct 28.3 L MCV 83.4 MCH 26.3 L MCHC 31.5 L RDW 16.7 H Plt Count 392 MPV 8.5 Neut % (Auto) 92.6 H Lymph % (Auto) 3.4 L [place] % (Auto) 4.0 Eos % (Auto) 0.0 Baso % (Auto) 0.0 Neut # (Auto) 19.3 H Lymph # (Auto) 0.7 L [place] # (Auto) 0.8 Eos # (Auto) 0.0 Baso # (Auto) 0.0 Neutrophils % (Manual) 90 H Lymphocytes % (Manual) 4 L Monocytes % (Manual) 6 Toxic Granulation Present Platelet Estimate Normal Large Platelets Present Giant Platelets Present Polychromasia Slight Hypochromasia (manual) Moderate Poikilocytosis (manual Slight Anisocytosis (manual) Moderate Microcytosis (manual) Slight Target Cells Slight Ovalocytes Slight Schistocytes Slight Puncture Site pCO2 pO2 HCO3 ABG pH ABG Total CO2 ABG O2 Saturation ABG Base Excess ABG Hemoglobin ABG Carboxyhemoglobin POC ABG HHb (Measured) ABG Methemoglobin Narinder Test Hgb O2 Saturation Liter Flow Sodium 135 Potassium 3.8 Chloride 91 L Carbon Dioxide 37 H Anion Gap 10 BUN 28 H Creatinine 0.7 L Est GFR ( Amer) > 60 Est GFR (Non-Af Amer) > 60 POC Glucose (mg/dL) Random Glucose 264 H D Calcium 8.9 Phosphorus 2.5 Magnesium 2.5 H Total Bilirubin 0.4 AST 21 ALT 10 L Alkaline Phosphatase 305 H Lactate Dehydrogenase 419 Total Protein 6.9 Albumin 3.3 L Globulin 3.6 Albumin/Globulin Ratio 0.9 L 12/09/18 12/09/18 12/09/18 07:36 11:27 16:29 WBC RBC Hgb Hct MCV MCH MCHC RDW Plt Count MPV Neut % (Auto) Lymph % (Auto) [place] % (Auto) Eos % (Auto) Baso % (Auto) Neut # (Auto) Lymph # (Auto) [place] # (Auto) Eos # (Auto) Baso # (Auto) Neutrophils % (Manual) Lymphocytes % (Manual) Monocytes % (Manual) Toxic Granulation Platelet Estimate Large Platelets Giant Platelets Polychromasia Hypochromasia (manual) Poikilocytosis (manual Anisocytosis (manual) Microcytosis (manual) Target Cells Ovalocytes Schistocytes Puncture Site pCO2 pO2 HCO3 ABG pH ABG Total CO2 ABG O2 Saturation ABG Base Excess ABG Hemoglobin ABG Carboxyhemoglobin POC ABG HHb (Measured) ABG Methemoglobin Narinder Test Hgb O2 Saturation Liter Flow Sodium Potassium Chloride Carbon Dioxide Anion Gap BUN Creatinine Est GFR ( Amer) Est GFR (Non-Af Amer) POC Glucose (mg/dL) 268 H 281 H 176 H Random Glucose Calcium Phosphorus Magnesium Total Bilirubin AST ALT Alkaline Phosphatase Lactate Dehydrogenase Total Protein Albumin Globulin Albumin/Globulin Ratio Radiology Impressions: Radiology Impressions Chest X-Ray 12/09/18 07:38 IMPRESSION: Persistent spiculated opacity at the right upper lobe which may represent pneumonia or neoplasm. Continuous follow-up reassessment is recommended. Critical Care Progress Note - Nutrition Nutrition: Nutrition Category Date Time Status Diabetic [Consistent Carbohydrate] [DIET] Diets 12/02/18 Lunch Active Attending/Attestation - Attestation I have personally seen and examined this patient.: Yes I have fully participated in the care of the patient.: Yes I have reviewed all pertinent clinical information: Yes Notes (Text): 12/08/18 The patient was Seen and examined by me at the bedside during ICU round, Medical records reviewed and Management issues were discussed and formulated with the house staff. I have reviewed all the relevant clinical, laboratory, hemodynamic, radiographic data and medications I concur with resident's assessment and plan of care
--- NOTE | 2018-12-08 16:00 | CP.PCM.PN ---
Subjective - Date & Time of Evaluation Date of Evaluation: 12/08/18 Time of Evaluation: 08:00 - Subjective Subjective: weak coughing less sob Objective - Vital Signs/Intake and Output Vital Signs (last 24 hours): Temp Pulse Resp BP Pulse Ox 98.8 F 136 H 27 H 138/82 92 L 12/08/18 04:00 12/08/18 12:00 12/08/18 12:00 12/08/18 13:54 12/08/18 11:07 Intake and Output: 12/08/18 12/08/18 06:59 18:59 Intake Total 726 200 Output Total 725 300 Balance 1 -100 - Medications Medications: Current Medications Abacavir Sulfate (Ziagen) 300 mg PO BID [facility]; Protocol Last Admin: 12/08/18 10:47 Dose: 300 mg Acetaminophen (Tylenol 325mg Tab) 650 mg PO Q6 PRN PRN Reason: Pain, moderate (4-7) Last Admin: 12/03/18 12:48 Dose: 650 mg Albuterol/Ipratropium (Duoneb 3 Mg/0.5 Mg (3 Ml) Ud) 3 ml INH RQ4 [facility] Last Admin: 12/08/18 13:37 Dose: Not Given Alprazolam (Xanax) 0.25 mg PO Q8H PRN PRN Reason: Anxiety Stop: 12/15/18 18:01 Amlodipine Besylate (Norvasc) 5 mg PO DAILY [facility] Last Admin: 12/08/18 10:47 Dose: 5 mg Aspirin (Aspirin Chewable) 81 mg PO DAILY [facility] Last Admin: 12/08/18 10:48 Dose: 81 mg Atovaquone (Mepron) 1,500 mg PO HS [facility]; Protocol Last Admin: 12/07/18 21:16 Dose: 1,500 mg Belladonna/Phenobarbital () 1 tab PO TID [facility] Last Admin: 12/08/18 13:52 Dose: 1 tab Budesonide (Pulmicort Respules) 0.25 mg INH RQ12 [facility] Clotrimazole (Mycelex Reilly) 10 mg MT 5XD [facility] Last Admin: 12/08/18 13:53 Dose: 10 mg Emollient Ointment (Vaseline Oint) 5 gm TOP Q4H PRN PRN Reason: DRY LIPS Last Admin: 12/07/18 11:40 Dose: 5 gm Enoxaparin Sodium (Lovenox) 40 mg SC DAILY [facility] Last Admin: 12/08/18 10:48 Dose: 40 mg Famotidine (Pepcid) 20 mg PO 1000 [facility] Last Admin: 12/08/18 10:47 Dose: 20 mg Ferrous Gluconate (Fergon) 324 mg PO DAILY [facility] Last Admin: 12/08/18 10:46 Dose: 324 mg Furosemide (Lasix) 20 mg PO DAILY [facility] Last Admin: 12/08/18 10:49 Dose: 20 mg Gabapentin (Neurontin) 300 mg PO TID [facility] Last Admin: 12/08/18 13:53 Dose: 300 mg Guaifenesin (Robitussin) 100 mg PO Q4H PRN PRN Reason: Cough Last Admin: 12/07/18 19:46 Dose: 100 mg Insulin Detemir (Levemir) 25 unit SC Q12 [facility] Last Admin: 12/08/18 10:48 Dose: 25 units Insulin Human Regular (Novolin R) 0 unit SC [facility]; Protocol Last Admin: 12/08/18 12:54 Dose: 3 units Lamivudine (Epivir) 300 mg PO DAILY [facility] Last Admin: 12/08/18 10:47 Dose: 300 mg Methylprednisolone (Solu-Medrol) 30 mg 0.5 mg/kg (30 mg) IV BID [facility] Last Admin: 12/08/18 10:46 Dose: 30 mg Metoprolol Tartrate (Lopressor) 25 mg PO BID [facility] Last Admin: 12/08/18 10:48 Dose: 25 mg Montelukast Sodium (Singulair) 10 mg PO [facility] Last Admin: 12/07/18 21:16 Dose: 10 mg Multivitamins (Hexavitamin) 1 tab PO DAILY [facility] Last Admin: 12/08/18 10:48 Dose: 1 tab Raltegravir (Isentress) 400 mg PO BID [facility]; Protocol Last Admin: 12/08/18 10:44 Dose: 400 mg Rosuvastatin Calcium (Crestor) 10 mg PO HS [facility] Last Admin: 12/07/18 21:15 Dose: 10 mg - Labs Labs: 12/08/18 05:52 12/08/18 05:52 PT 18.6 SECONDS (9.7-12.2) H 11/30/18 09:35 INR 1.7 11/30/18 09:35 APTT 40 SECONDS (21-34) H 11/30/18 09:35 - Constitutional Appears: Toxic, Cachectic, Chronically Ill - Head Exam Head Exam: NORMOCEPHALIC - Eye Exam Eye Exam: absent: Scleral icterus Pupil Exam: NORMAL ACCOMODATION - ENT Exam ENT Exam: Mucous Membranes Dry - Neck Exam Neck Exam: absent: Lymphadenopathy - Respiratory Exam Respiratory Exam: Decreased Breath Sounds, Prolonged Expiratory Phase, Rhonchi - Cardiovascular Exam Cardiovascular Exam: REGULAR RHYTHM, +S1, +S2 - GI/Abdominal Exam GI & Abdominal Exam: Distended, Soft. absent: Tenderness - Rectal Exam Rectal Exam: Deferred - Exam Exam: NORMAL INSPECTION - Extremities Exam Extremities Exam: absent: Pedal Edema - Back Exam Back Exam: absent: CVA tenderness (L), CVA tenderness (R) - Neurological Exam Neurological Exam: Alert, Awake, CN II-XII Intact, Oriented x3. absent: Normal Gait - Psychiatric Exam Psychiatric exam: Depressed - Skin Skin Exam: Dry Assessment and Plan (1) COPD exacerbation Status: Acute (2) Dyspnea Status: Acute (3) Sepsis Status: Acute (4) ARF (acute renal failure) Status: Acute (5) HIV (human immunodeficiency virus infection) Status: Acute - Assessment and Plan (Free Text) Assessment: cont IV antibiotics for pneumonia lung mass in operable
[2018-12-08] MEDS: guaiFENesin 100 mg/5 ml Syrup UD PO PRN (19:23)
[2018-12-08] MEDS: Budesonide 0.25 mg/2 ml Inhal Susp UD INH SCH (20:11)
--- NOTE | 2018-12-08 20:48 | CP.PCM.PN ---
Subjective - Date & Time of Evaluation Date of Evaluation: 12/08/18 Time of Evaluation: 19:00 - Subjective Subjective: S: Patient was seen in bed during breathing treatment. On and off on BiPAP, awake and responsive O: Vitals: Temp. 98.8F, P 136, BP 141/82, RR 27 Physical Exam: Refused examination, as per chart General: AAOX3, acute distress HEENT: atraumatic, normocephalic Cardio: Tachycardia Respiratory: decreased breath sounds, + wheezes, and rales GI: Normal bowel sounds A/P: 63 year old male with a PMH of COPD, HIV, and Lung CA Continue nebulizer treatment, steroids and BiPAP as needed Transfer to floor Objective - Vital Signs/Intake and Output Vital Signs (last 24 hours): Temp Pulse Resp BP Pulse Ox 98.6 F 90 19 100/69 97 12/08/18 20:00 12/08/18 20:00 12/08/18 20:00 12/08/18 19:49 12/08/18 20:00 Intake and Output: 12/08/18 12/09/18 18:59 06:59 Intake Total 200 740 Output Total 300 1200 Balance -100 -460 - Medications Medications: Current Medications Abacavir Sulfate (Ziagen) 300 mg PO BID [facility]; Protocol Last Admin: 12/08/18 18:17 Dose: 300 mg Acetaminophen (Tylenol 325mg Tab) 650 mg PO Q6 PRN PRN Reason: Pain, moderate (4-7) Last Admin: 12/03/18 12:48 Dose: 650 mg Albuterol/Ipratropium (Duoneb 3 Mg/0.5 Mg (3 Ml) Ud) 3 ml INH RQ4 [facility] Last Admin: 12/08/18 20:11 Dose: Not Given Alprazolam (Xanax) 0.25 mg PO Q8H PRN PRN Reason: Anxiety Stop: 12/15/18 18:01 Amlodipine Besylate (Norvasc) 5 mg PO DAILY [facility] Last Admin: 12/08/18 10:47 Dose: 5 mg Aspirin (Aspirin Chewable) 81 mg PO DAILY [facility] Last Admin: 12/08/18 10:48 Dose: 81 mg Atovaquone (Mepron) 1,500 mg PO HS [facility]; Protocol Last Admin: 12/07/18 21:16 Dose: 1,500 mg Belladonna/Phenobarbital () 1 tab PO TID [facility] Last Admin: 12/08/18 18:17 Dose: 1 tab Budesonide (Pulmicort Respules) 0.25 mg INH RQ12 [facility] Last Admin: 12/08/18 20:11 Dose: Not Given Clotrimazole (Mycelex Reilly) 10 mg MT 5XD [facility] Last Admin: 12/08/18 19:23 Dose: 10 mg Emollient Ointment (Vaseline Oint) 5 gm TOP Q4H PRN PRN Reason: DRY LIPS Last Admin: 12/07/18 11:40 Dose: 5 gm Enoxaparin Sodium (Lovenox) 40 mg SC DAILY [facility] Last Admin: 12/08/18 10:48 Dose: 40 mg Famotidine (Pepcid) 20 mg PO 1000 [facility] Last Admin: 12/08/18 10:47 Dose: 20 mg Ferrous Gluconate (Fergon) 324 mg PO DAILY [facility] Last Admin: 12/08/18 10:46 Dose: 324 mg Furosemide (Lasix) 20 mg PO DAILY [facility] Last Admin: 12/08/18 10:49 Dose: 20 mg Gabapentin (Neurontin) 300 mg PO TID [facility] Last Admin: 12/08/18 18:17 Dose: 300 mg Guaifenesin (Robitussin) 100 mg PO Q4H PRN PRN Reason: Cough Last Admin: 12/08/18 19:23 Dose: 100 mg Insulin Detemir (Levemir) 25 unit SC Q12 [facility] Last Admin: 12/08/18 10:48 Dose: 25 units Insulin Human Regular (Novolin R) 0 unit SC ACHS [facility]; Protocol Last Admin: 12/08/18 18:46 Dose: Not Given Lamivudine (Epivir) 300 mg PO DAILY [facility] Last Admin: 12/08/18 10:47 Dose: 300 mg Methylprednisolone (Solu-Medrol) 30 mg 0.5 mg/kg (30 mg) IV BID [facility] Last Admin: 12/08/18 18:19 Dose: 30 mg Metoprolol Tartrate (Lopressor) 25 mg PO BID [facility] Last Admin: 12/08/18 18:09 Dose: Not Given Montelukast Sodium (Singulair) 10 mg PO HS [facility] Last Admin: 12/07/18 21:16 Dose: 10 mg Multivitamins (Hexavitamin) 1 tab PO DAILY [facility] Last Admin: 12/08/18 10:48 Dose: 1 tab Raltegravir (Isentress) 400 mg PO BID [facility]; Protocol Last Admin: 12/08/18 18:18 Dose: 400 mg Rosuvastatin Calcium (Crestor) 10 mg PO HS [facility] Last Admin: 12/07/18 21:15 Dose: 10 mg - Labs Labs: 12/08/18 05:52 12/08/18 05:52 PT 18.6 SECONDS (9.7-12.2) H 11/30/18 09:35 INR 1.7 11/30/18 09:35 APTT 40 SECONDS (21-34) H 11/30/18 09:35 Assessment and Plan (1) COPD exacerbation Status: Acute (2) HIV (human immunodeficiency virus infection) Status: Acute (3) Lung mass Status: Acute
[2018-12-08] MEDS: Petrolatum Oint Foilpak (5 gm) TOP PRN (21:47)
[2018-12-08] MEDS: Atovaquone 750 mg/5 ml Susp UD PO SCH (21:58)
[2018-12-09] MEDS: Albuterol-Ipratrop 3 mg / 0.5 (3 ml) UD INH SCH ×6 (00:19→20:05)
[2018-12-09] MEDS: guaiFENesin 100 mg/5 ml Syrup UD PO PRN ×2 (04:31→11:45)
[2018-12-09 05:46] LABS: ABG ALLEN TEST POS; ARTERIAL BLOOD GAS HCO3 35.1 mmol/L (21-28); ARTERIAL BLOOD GAS HEMOGLOBIN 9.3 g/dL (11.7-17.4); ARTERIAL BLOOD GAS O2 SAT 99.4 % (95-98); ARTERIAL BLOOD GAS PCO2 43 mm/Hg (35-45); ARTERIAL BLOOD GAS PH 7.54 (7.35-7.45); ARTERIAL BLOOD GAS PO2 107 mm/Hg (80-100); ARTERIAL BLOOD GAS TCO2 38.1 mmol/L (22-28)
[2018-12-09 06:36] LABS: HEMOGLOBIN 8.9 g/dL (12.0-18.0); LYMPH # 0.7 K/uL (1.0-4.3); LYMPH % 3.4 % (20.0-40.0); MEAN CELL VOLUME 83.4 fL (80.0-94.0); MEAN CORPUSCULAR HEMOGLOBIN 26.3 pg (27.0-31.0); MEAN CORPUSCULAR HGB CONC 31.5 g/dL (33.0-37.0); MEAN PLATELET VOLUME 8.5 fL (7.2-11.7); MONO # 0.8 K/uL (0.0-0.8); NEUT # 19.3 K/uL (1.8-7.0); NEUT % 92.6 % (50.0-75.0); PLATELET COUNT 392 K/uL (130-400); RBC 3.39 Mil/uL (4.40-5.90); RED CELL DISTRIBUTION WIDTH 16.7 % (11.5-14.5); WHITE BLOOD COUNT 20.9 K/uL (4.8-10.8)
[2018-12-09 06:58] LABS: ALB/GLOB RATIO 0.9 (1.0-2.1); ALBUMIN 3.3 g/dL (3.5-5.0); ALT/SGPT 10 U/L (21-72); AST/SGOT 21 U/L (17-59); BLOOD UREA NITROGEN 28 mg/dL (9-20); CALCIUM 8.9 mg/dl (8.6-10.4); GFR NON-AFRICAN AMERICAN > 60
[2018-12-09] MEDS: (Novolin R) Insulin Human Regular 100 units/ml vial SC SCH ×4 (08:04→22:03)
[2018-12-09] MEDS: Budesonide 0.25 mg/2 ml Inhal Susp UD INH SCH ×2 (08:20→20:05)
[2018-12-09] MEDS: LIPASE/PROTEASE/AMYLASE 4,200 U ECC PO SCH ×3 (08:56→17:25)
[2018-12-09] MEDS: Belladonna-Phenobarbital PO SCH ×3 (09:09→17:25)
[2018-12-09] MEDS: Multiple Vitamins Tab PO SCH (09:10)
[2018-12-09 09:11] LABS: LYMPHOCYTE 4 % (20-40); MONOCYTE 6 % (0-10); NEUTROPHIL 90 % (50-75); PLATELET ESTIMATE NORMAL (NORMAL); TOTAL CELLS COUNTED 100
[2018-12-09] MEDS: MethylPREDNISolone 40 mg Vial IV SCH ×2 (09:11→17:25)
[2018-12-09] MEDS: Enoxaparin 40 mg Syringe SC SCH (09:11)
[2018-12-09 09:12] LABS: ANISOCYTOSIS MODERATE; HYPOCHROMIC MODERATE; MICROCYTOSIS SLIGHT; POLYCHROMIC SLIGHT
[2018-12-09 09:13] LABS: GIANT PLATELETS PRESENT; LARGE PLATELETS PRESENT; TARGET CELLS SLIGHT; TOXIC GRANULATION PRESENT
[2018-12-09 09:14] LABS: POIKILOCYTOSIS SLIGHT; SCHISTOCYTES SLIGHT
[2018-12-09 09:15] LABS: OVALOCYTES SLIGHT
[2018-12-09] MEDS: Insulin Detemir 100 units/ml Vial (Levemir) SC SCH ×2 (09:28→22:03)
--- NOTE | 2018-12-09 10:15 | PN ---
DATE: 12/09/2018 LOCATION: ICU 7. SUBJECTIVE: This is 63-year-old male, seen and examined in rounds without significant clinical changes, reported active bleeding with fluctuation of blood glucose level as reported. He has intermittent period of productive cough with mild shortness of breath, but no actual chest pain, palpitation, or reported active bleeding. Most recent lab results showed leukocytosis of 20.9, hemoglobin 8.9, hematocrit 28.3 with low indices with normal platelet count with abnormal ABGs with CO2 content 37 indicative of metabolic respiratory alkalosis, BUN is 28, normal creatinine, blood glucose 264, magnesium 2.5, alkaline phosphatase 305, and albumin 3.3. PHYSICAL EXAMINATION: GENERAL: A 63-year-old male, appears to be awake, alert, somewhat agitated. VITAL SIGNS: Afebrile with pulse of 86, respiratory rate 20-24, blood pressure 120/74. HEENT: Showed pale dry oral mucous membrane. Nonicteric sclerae. LUNGS: Few scattered crepitation. Decreased air entry at bases. HEART: Positive S1 and S2. ABDOMEN: Soft with mild generalized tenderness. No mass or organomegaly, but generalized abdominal slight distention with tenderness. EXTREMITIES: With mild lower extremity edematous changes. No clubbing or cyanosis. NEUROLOGIC: No reported new neurological deficits, sensory or motor. IMPRESSION: 1. Re-exacerbation of chronic obstructive pulmonary disease with bronchitis and lung mass lesion. 2. Reported history of human immunodeficiency virus. 3. Anemia, most likely secondary to above. 4. Re-exacerbation of peptic ulcer disease. 5. Poorly controlled diabetes mellitus. 6. Known history of sleep apnea. SUGGESTION: 1. Continue current management. 2. Repeat serum lipase and amylase level. Guaiac all the stool daily x3. 3. Case to be discussed with pulmonary trousseau consultant on the case. Further recommendation to follow. Sarai Reynolds MD
--- NOTE | 2018-12-09 12:15 | CP.PCM.PN ---
Subjective - Date & Time of Evaluation Date of Evaluation: 12/09/18 Time of Evaluation: 12:12 - Subjective Subjective: seen in icu less resp distress Objective - Vital Signs/Intake and Output Vital Signs (last 24 hours): Temp Pulse Resp BP Pulse Ox 98.6 F 105 H 28 H 127/75 99 12/09/18 08:00 12/09/18 08:21 12/09/18 08:00 12/09/18 09:10 12/09/18 08:00 Intake and Output: 12/09/18 12/09/18 06:59 18:59 Intake Total 1520 Output Total 2500 100 Balance -980 -100 - Medications Medications: Current Medications Abacavir Sulfate (Ziagen) 300 mg PO BID [facility]; Protocol Last Admin: 12/09/18 09:10 Dose: 300 mg Acetaminophen (Tylenol 325mg Tab) 650 mg PO Q6 PRN PRN Reason: Pain, moderate (4-7) Last Admin: 12/03/18 12:48 Dose: 650 mg Albuterol/Ipratropium (Duoneb 3 Mg/0.5 Mg (3 Ml) Ud) 3 ml INH RQ4 [facility] Last Admin: 12/09/18 08:20 Dose: Not Given Alprazolam (Xanax) 0.25 mg PO Q8H PRN PRN Reason: Anxiety Stop: 12/15/18 18:01 Amlodipine Besylate (Norvasc) 5 mg PO DAILY [facility] Last Admin: 12/09/18 09:10 Dose: 5 mg Aspirin (Aspirin Chewable) 81 mg PO DAILY [facility] Last Admin: 12/09/18 09:09 Dose: 81 mg Belladonna/Phenobarbital () 1 tab PO TID [facility] Last Admin: 12/09/18 09:09 Dose: 1 tab Budesonide (Pulmicort Respules) 0.25 mg INH RQ12 [facility] Last Admin: 12/09/18 08:20 Dose: Not Given Clotrimazole (Mycelex Reilly) 10 mg MT 5XD [facility] Last Admin: 12/09/18 11:45 Dose: 10 mg Emollient Ointment (Vaseline Oint) 5 gm TOP Q4H PRN PRN Reason: DRY LIPS Last Admin: 12/08/18 21:47 Dose: 5 gm Enoxaparin Sodium (Lovenox) 40 mg SC DAILY [facility] Last Admin: 12/09/18 09:11 Dose: 40 mg Famotidine (Pepcid) 20 mg PO 1000 [facility] Last Admin: 12/09/18 09:10 Dose: 20 mg Ferrous Gluconate (Fergon) 324 mg PO DAILY [facility] Last Admin: 12/09/18 09:10 Dose: 324 mg Furosemide (Lasix) 20 mg PO DAILY [facility] Last Admin: 12/09/18 09:09 Dose: 20 mg Gabapentin (Neurontin) 300 mg PO TID [facility] Last Admin: 12/09/18 09:10 Dose: 300 mg Guaifenesin (Robitussin) 100 mg PO Q4H PRN PRN Reason: Cough Last Admin: 12/09/18 11:45 Dose: 100 mg Insulin Detemir (Levemir) 25 unit SC Q12 [facility] Last Admin: 12/09/18 09:28 Dose: 25 units Insulin Human Regular (Novolin R) 0 unit SC ACHS [facility]; Protocol Last Admin: 12/09/18 11:45 Dose: 4 units Lamivudine (Epivir) 300 mg PO DAILY [facility] Last Admin: 12/09/18 09:08 Dose: 300 mg Methylprednisolone (Solu-Medrol) 30 mg 0.5 mg/kg (30 mg) IV BID [facility] Last Admin: 12/09/18 09:11 Dose: 30 mg Metoprolol Tartrate (Lopressor) 25 mg PO BID [facility] Last Admin: 12/09/18 09:10 Dose: 25 mg Montelukast Sodium (Singulair) 10 mg PO HS [facility] Last Admin: 12/08/18 21:33 Dose: 10 mg Multivitamins (Hexavitamin) 1 tab PO DAILY [facility] Last Admin: 12/09/18 09:10 Dose: 1 tab Raltegravir (Isentress) 400 mg PO BID [facility]; Protocol Last Admin: 12/09/18 09:10 Dose: 400 mg Rosuvastatin Calcium (Crestor) 10 mg PO HS [facility] Last Admin: 12/08/18 21:33 Dose: 10 mg - Labs Labs: 12/09/18 06:31 12/09/18 06:31 PT 18.6 SECONDS (9.7-12.2) H 11/30/18 09:35 INR 1.7 11/30/18 09:35 APTT 40 SECONDS (21-34) H 11/30/18 09:35 - Constitutional Appears: In Acute Distress - Head Exam Head Exam: ATRAUMATIC - Eye Exam Eye Exam: Normal appearance Pupil Exam: NORMAL ACCOMODATION - ENT Exam ENT Exam: Mucous Membranes Moist - Neck Exam Neck Exam: Normal Inspection - Respiratory Exam Respiratory Exam: Decreased Breath Sounds, Rhonchi, Wheezes - Cardiovascular Exam Cardiovascular Exam: REGULAR RHYTHM - GI/Abdominal Exam GI & Abdominal Exam: Normal Bowel Sounds - Extremities Exam Extremities Exam: Full ROM - Back Exam Back Exam: NORMAL INSPECTION - Neurological Exam Neurological Exam: Alert, Oriented x3 - Psychiatric Exam Psychiatric exam: Normal Affect - Skin Skin Exam: Pallor Assessment and Plan - Assessment and Plan (Free Text) Assessment: ca lung liver leasions copd exacerbatin s/p recurent pancreatitis hiv Plan: continu as per orders
--- NOTE | 2018-12-09 14:51 | RAD ---
Date of service: 12/09/2018 HISTORY: r/o pna COMPARISON: Comparison is made with 12/07/2018 TECHNIQUE: 1 view obtained. FINDINGS: LUNGS: Persistent spiculated opacity at the right upper lobe. The possibility of neoplasm versus pneumonia should be considered. PLEURA: Blunting of the right costophrenic angle. CARDIOVASCULAR: No aortic atherosclerotic calcification present. Normal cardiac size. No pulmonary vascular congestion. OSSEOUS STRUCTURES: No significant abnormalities. VISUALIZED UPPER ABDOMEN: Normal. OTHER FINDINGS: None. IMPRESSION: Persistent spiculated opacity at the right upper lobe which may represent pneumonia or neoplasm. Continuous follow-up reassessment is recommended.
[2018-12-10] MEDS: Albuterol-Ipratrop 3 mg / 0.5 (3 ml) UD INH SCH ×3 (00:45→11:30)
[2018-12-10] MEDS ORDERED: Acetaminophen IV 1,000 MG in Premixed IV 1 EA IV ONE (08:22)
[2018-12-10] MEDS: (Novolin R) Insulin Human Regular 100 units/ml vial SC SCH ×4 (08:30→21:08)
[2018-12-10] MEDS ORDERED: Lactated Ringer's 1,000 ML IV ONE (08:38)
[2018-12-10 09:14] LABS: ARTERIAL BLOOD GAS HCO3 36.9 mmol/L (21-28); ARTERIAL BLOOD GAS O2 SAT 94.9 % (95-98); ARTERIAL BLOOD GAS PCO2 47 mm/Hg (35-45); ARTERIAL BLOOD GAS PH 7.54 (7.35-7.45); ARTERIAL BLOOD GAS PO2 55 mm/Hg (80-100); ARTERIAL BLOOD GAS TCO2 41.6 mmol/L (22-28)
--- NOTE | 2018-12-10 09:22 | PCM.RRT ---
AREA FIELD WORKER Nurses Assessment - Situation Date: 12/10/18 Time AREA FIELD WORKER was called: 08:14 AREA FIELD WORKER Responder Arrival Time:: 08:15 AREA FIELD WORKER Location:: ICU AREA FIELD WORKER Reason for Call: Tachycardia, Respiratory Distress AREA FIELD WORKER Called By: RN - IV IV Fluids Initiated During AREA FIELD WORKER?: LR bolus 1L New IV Insertion Tolerance: Fair - Respiratory AREA FIELD WORKER Delivery Method: BiPAP @% Secretions Suctioned?: Yes Was the Patient Intubated?: No - Ventilator Settings FIO2 (% Oxygen): 50 - Medication Medications Administered During AREA FIELD WORKER: Adenosine 6mg followed by Adenosine 12mg to stop the SVT - Diagnostic Test Ordered Chest X-Ray: Yes CT Scan: Yes - Stat Labs Ordered AREA FIELD WORKER Stat Labs Ordered: LACTIC ACID, BLOOD C&S X2, ABG CPR started during AREA FIELD WORKER?: No - Recommendations 5) AREA FIELD WORKER Level of Care Recommendations: Remain in current setting Notifications: Family or Designated Caregiver I.Reason for AREA FIELD WORKER - A) Acute Change in Patient: (Select all that apply): Staff member or family is worried about patient - Neurological Status (Select all that apply): Alert, Responsive, Oriented, Verbal, Follows Commands, Aggressive. absent: Disoriented, Confused, Lethargic, Weakness - Respiratory Oxygen Delivery Method: Nasal Cannula @L/min, BiPAP @% - Constitutional Appears: In Acute Distress - Head Head Exam: NORMAL INSPECTION, NORMOCEPHALIC - Eyes Eye Exam: EOMI, Normal appearance. absent: Nystagmus - Respiratory Exam Respiratory Exam: Decreased Breath Sounds, Respiratory Distress - Cardiovascular Exam Cardiovascular Exam: Tachycardia, +S1, +S2 - GI/Abdominal Exam GI & Abdominal Exam: Soft, Normal Bowel Sounds. absent: Guarding, Tenderness - Neurological Exam Neurological Exam: Awake, Oriented x3 Plan - Assessment of Findings&Treatment Plan AREA FIELD WORKER was called by nursing staff in ICU Hospitalist team arrived to find patient tachycardic with rythym showing SVT At this time it was informed that patient had an elevated temperature of 103 Adenosine 6mg followed by Adenosine 12mg was administered however patient remained tachycardic Patient refused any further Adenosine at this time and was aggressive about so IV Tylenol was administered as patient had an elevated temperature Patient refused AM blood work IV Abx Zosyn and Vanc were ordered as MAR for possible PNA concern; Lactobacillus was added to patient regimen of IV abx CXR, CTA of chest, ABG w/ shock panel were ordered Patient was continued on BIPAP as patient was on bipap prior to arrival of hospitalist team Patient eventually took off BIPAP and was switched to nasal cannula although it was advised to patient to continue on nasal cannula Attempts were made to contact patient sister Vincenzo, with a message left on voicemail by ICU attending CXR is pending full read CTA of chest to rule out P.E as patient remains tachycardic ABG resulted showing decreased oxygenation and metabolic alkalosis Further management as per PRIMARY TEAM
[2018-12-10] MEDS ORDERED: Iodixanol 320 MG/ML 100 ML BOTTLE IV ONE (09:36)
[2018-12-10 09:43] LABS: BASO % 0.2 % (0.0-2.0); HEMOGLOBIN 8.8 g/dL (12.0-18.0); LYMPH # 0.8 K/uL (1.0-4.3); LYMPH % 3.9 % (20.0-40.0); MEAN CELL VOLUME 82.7 fL (80.0-94.0); MEAN CORPUSCULAR HEMOGLOBIN 26.3 pg (27.0-31.0); MEAN CORPUSCULAR HGB CONC 31.8 g/dL (33.0-37.0); MEAN PLATELET VOLUME 8.4 fL (7.2-11.7); MONO % 4.6 % (0.0-10.0); NEUT # 19.3 K/uL (1.8-7.0); NEUT % 91.3 % (50.0-75.0); PLATELET COUNT 370 K/uL (130-400); RBC 3.34 Mil/uL (4.40-5.90); RED CELL DISTRIBUTION WIDTH 16.7 % (11.5-14.5); WHITE BLOOD COUNT 21.1 K/uL (4.8-10.8)
--- NOTE | 2018-12-10 09:47 | CP.PCM.PCO ---
Physician Communication Note - Physician Communication Note Physician Communication Note: spoke with patient and sister about advance directives. Additional Comments - Additional Comments Additional Comments: Patient said he does not want life support, just make him comfortable. His sister said he does not want to go through more and she believes he signed a DNR/DNI at [facility] [place]. Patient's code status changed to DNR/DNI. Updated hospitalist team. Critical Care time 20 minutes
[2018-12-10] MEDS: Piperacillin/Tazobact 3.375 GM in Sodium Chloride 100 ML IVPB SCH ×3 (10:00→20:12)
[2018-12-10] MEDS: Enoxaparin 40 mg Syringe SC SCH (10:18)
[2018-12-10] MEDS: MethylPREDNISolone 40 mg Vial IV SCH ×2 (10:18→17:46)
[2018-12-10] MEDS: Lactobacillus Acidophilus 500 MU Cap PO SCH ×2 (10:18→17:50)
--- NOTE | 2018-12-10 10:18 | CP.PCM.PCO ---
Physician Communication Note - Physician Communication Note Physician Communication Note: Please see above
[2018-12-10] MEDS: Petrolatum Oint Foilpak (5 gm) TOP PRN ×2 (10:19→19:45)
[2018-12-10] MEDS: Multiple Vitamins Tab PO SCH (10:19)
[2018-12-10 10:30] LABS: ALB/GLOB RATIO 0.9 (1.0-2.1); ALBUMIN 3.1 g/dL (3.5-5.0); ALT/SGPT < 6 U/L (21-72); AST/SGOT 15 U/L (17-59); BLOOD UREA NITROGEN 31 mg/dL (9-20); CALCIUM 8.8 mg/dl (8.6-10.4); GFR NON-AFRICAN AMERICAN > 60
[2018-12-10] MEDS: LIPASE/PROTEASE/AMYLASE 4,200 U ECC PO SCH ×3 (10:40→17:49)
[2018-12-10] MEDS: Belladonna-Phenobarbital PO SCH ×3 (10:41→17:48)
[2018-12-10] MEDS: Insulin Detemir 100 units/ml Vial (Levemir) SC SCH ×2 (10:42→21:12)
[2018-12-10 11:04] LABS: BANDS 1 % (0-2); LYMPHOCYTE 4 % (20-40); MONOCYTE 6 % (0-10); NEUTROPHIL 89 % (50-75); PLATELET ESTIMATE NORMAL (NORMAL); TOTAL CELLS COUNTED 100
[2018-12-10 11:05] LABS: ANISOCYTOSIS MODERATE; HYPOCHROMIC SLIGHT; LARGE PLATELETS PRESENT; POLYCHROMIC SLIGHT
[2018-12-10 11:06] LABS: GIANT PLATELETS PRESENT
[2018-12-10] MEDS: Budesonide 0.25 mg/2 ml Inhal Susp UD INH SCH (11:31)
--- NOTE | 2018-12-10 11:45 | CP.PCM.PN ---
Subjective - Date & Time of Evaluation Date of Evaluation: 12/10/18 Time of Evaluation: 11:41 - Subjective Subjective: pt has rouble breathing rapid responsce called earlier today now has visitors smiling still coughing alt and wheesing Objective - Vital Signs/Intake and Output Vital Signs (last 24 hours): Temp Pulse Resp BP Pulse Ox 99 F 144 H 17 128/79 99 12/10/18 04:00 12/10/18 08:00 12/10/18 08:00 12/10/18 10:19 12/10/18 08:00 Intake and Output: 12/10/18 12/10/18 06:59 18:59 Output Total 500 Balance -500 - Medications Medications: Current Medications Acetaminophen (Tylenol 325mg Tab) 650 mg PO Q6 PRN PRN Reason: Pain, moderate (4-7) Last Admin: 12/03/18 12:48 Dose: 650 mg Alprazolam (Xanax) 0.25 mg PO Q8H PRN PRN Reason: Anxiety Stop: 12/15/18 18:01 Amlodipine Besylate (Norvasc) 5 mg PO DAILY [facility] Last Admin: 12/10/18 10:18 Dose: 5 mg Aspirin (Aspirin Chewable) 81 mg PO DAILY [facility] Last Admin: 12/10/18 10:19 Dose: 81 mg Belladonna/Phenobarbital () 1 tab PO TID [facility] Last Admin: 12/10/18 10:41 Dose: 1 tab Budesonide (Pulmicort Respules) 0.25 mg INH RQ12 [facility] Last Admin: 12/10/18 11:31 Dose: Not Given Clotrimazole (Mycelex Reilly) 10 mg MT 5XD [facility] Last Admin: 12/10/18 10:57 Dose: 10 mg Emollient Ointment (Vaseline Oint) 5 gm TOP Q4H PRN PRN Reason: DRY LIPS Last Admin: 12/10/18 10:19 Dose: 5 gm Enoxaparin Sodium (Lovenox) 40 mg SC DAILY [facility] Last Admin: 12/10/18 10:18 Dose: 40 mg Famotidine (Pepcid) 20 mg PO 1000 [facility] Last Admin: 12/10/18 10:19 Dose: 20 mg Ferrous Gluconate (Fergon) 324 mg PO DAILY [facility] Last Admin: 12/10/18 10:19 Dose: 324 mg Furosemide (Lasix) 20 mg IVP DAILY [facility] Gabapentin (Neurontin) 300 mg PO TID [facility] Last Admin: 12/10/18 10:48 Dose: 300 mg Guaifenesin (Robitussin) 100 mg PO Q4H PRN PRN Reason: Cough Last Admin: 12/09/18 11:45 Dose: 100 mg Vancomycin HCl 1 gm/ Sodium (Chloride) 250 mls @ 166.7 mls/hr IVPB Q12H [facility]; Protocol Last Admin: 12/10/18 10:20 Dose: 166.7 mls/hr Piperacillin Sod/Tazobactam (Sod 3.375 gm/ Sodium Chloride) 100 mls @ 200 mls/hr IVPB Q6H [facility]; Protocol Last Admin: 12/10/18 10:00 Dose: 200 mls/hr Insulin Detemir (Levemir) 25 unit SC Q12 [facility] Last Admin: 12/10/18 10:42 Dose: 25 units Insulin Human Regular (Novolin R) 0 unit SC ACHS [facility]; Protocol Last Admin: 12/10/18 08:30 Dose: 2 units Lactobacillus Acidophilus (Lactobacillus) 1 cap PO BID [facility] Last Admin: 12/10/18 10:18 Dose: 1 cap Methylprednisolone (Solu-Medrol) 30 mg 0.5 mg/kg (30 mg) IV BID [facility] Last Admin: 12/10/18 10:18 Dose: 30 mg Metoprolol Tartrate (Lopressor) 25 mg PO BID [facility] Last Admin: 12/10/18 10:19 Dose: 25 mg Montelukast Sodium (Singulair) 10 mg PO HS [facility] Last Admin: 12/09/18 22:04 Dose: 10 mg Multivitamins (Hexavitamin) 1 tab PO DAILY [facility] Last Admin: 12/10/18 10:19 Dose: 1 tab - Labs Labs: 12/10/18 09:34 12/10/18 09:34 PT 18.6 SECONDS (9.7-12.2) H 11/30/18 09:35 INR 1.7 11/30/18 09:35 APTT 40 SECONDS (21-34) H 11/30/18 09:35 - Constitutional Appears: In Acute Distress - Head Exam Head Exam: ATRAUMATIC - Eye Exam Eye Exam: Normal appearance Pupil Exam: NORMAL ACCOMODATION - ENT Exam ENT Exam: Mucous Membranes Moist - Respiratory Exam Respiratory Exam: Decreased Breath Sounds, Prolonged Expiratory Phase, Rales, Rhonchi, Wheezes, Respiratory Distress - Cardiovascular Exam Cardiovascular Exam: Tachycardia - GI/Abdominal Exam GI & Abdominal Exam: Normal Bowel Sounds - Extremities Exam Extremities Exam: Normal Inspection - Back Exam Back Exam: NORMAL INSPECTION - Neurological Exam Neurological Exam: Awake, Oriented x3 - Psychiatric Exam Psychiatric exam: Normal Affect - Skin Skin Exam: Pallor Assessment and Plan - Assessment and Plan (Free Text) Assessment: severe copd hypoxeamia ca lung with possible metastasis hiv aneamia dm Plan: continu treatment as ordered pt signed for dnr dni pailtive car consult ordered
--- NOTE | 2018-12-10 11:46 | CP.PCM.PN ---
Subjective - Date & Time of Evaluation Date of Evaluation: 12/10/18 Time of Evaluation: 11:46 - Subjective Subjective: Pulmonary follow up, Covering Dr Alfaro The Patient was seen and examined at the bedside, Medical records reviewed, and management issues were discussed and formulated with the house staff. Events reviewed Patient is 63-year old male with past medical history of hypertension, hypercholesterolemia, congestive heart failure, COPD/emphysema, pancreatitis, pneumonia, sleep apnea, chronic hepatitis C and HIV infection Who presented to the emergency room with productive cough, congestion, worsening shortness of breath and generalized malaise Admitted to the ICU with acute respiratory failure with hypoxemia from pneumonia and COPD exacerbation Patient also have lung mass highly suspicious for malignancy Patient clinically improved, alert awake oriented, comfortable and able to speak full sentence Not in any apparent distress Afebrile Patient saturation 95 -100% on 3 L nasal cannula Planning to continue the patient on IV steroids with Solu-Medrol 30 mg IV twice daily Continue broad-spectrum antibiotic coverage with IV vancomycin and Zosyn Supplemental oxygen with 3 L nasal cannula and BiPAP at night Patient with severe COPD and will probably require home oxygen Continue nebulizer treatment Singulair 10 mg q. at bedtime Palliative care consult to discuss goals of care and CODE STATUS with the patient Objective - Vital Signs/Intake and Output Vital Signs (last 24 hours): Temp Pulse Resp BP Pulse Ox 99 F 144 H 17 128/79 99 12/10/18 04:00 12/10/18 08:00 12/10/18 08:00 12/10/18 10:19 12/10/18 08:00 Intake and Output: 12/10/18 12/10/18 06:59 18:59 Output Total 500 Balance -500 - Medications Medications: Current Medications Acetaminophen (Tylenol 325mg Tab) 650 mg PO Q6 PRN PRN Reason: Pain, moderate (4-7) Last Admin: 12/03/18 12:48 Dose: 650 mg Alprazolam (Xanax) 0.25 mg PO Q8H PRN PRN Reason: Anxiety Stop: 12/15/18 18:01 Amlodipine Besylate (Norvasc) 5 mg PO DAILY [facility] Last Admin: 12/10/18 10:18 Dose: 5 mg Aspirin (Aspirin Chewable) 81 mg PO DAILY [facility] Last Admin: 12/10/18 10:19 Dose: 81 mg Belladonna/Phenobarbital () 1 tab PO TID [facility] Last Admin: 12/10/18 10:41 Dose: 1 tab Budesonide (Pulmicort Respules) 0.25 mg INH RQ12 [facility] Last Admin: 12/10/18 11:31 Dose: Not Given Clotrimazole (Mycelex Reilly) 10 mg MT 5XD [facility] Last Admin: 12/10/18 10:57 Dose: 10 mg Emollient Ointment (Vaseline Oint) 5 gm TOP Q4H PRN PRN Reason: DRY LIPS Last Admin: 12/10/18 10:19 Dose: 5 gm Enoxaparin Sodium (Lovenox) 40 mg SC DAILY [facility] Last Admin: 12/10/18 10:18 Dose: 40 mg Famotidine (Pepcid) 20 mg PO 1000 [facility] Last Admin: 12/10/18 10:19 Dose: 20 mg Ferrous Gluconate (Fergon) 324 mg PO DAILY [facility] Last Admin: 12/10/18 10:19 Dose: 324 mg Furosemide (Lasix) 20 mg IVP DAILY [facility] Gabapentin (Neurontin) 300 mg PO TID [facility] Last Admin: 12/10/18 10:48 Dose: 300 mg Guaifenesin (Robitussin) 100 mg PO Q4H PRN PRN Reason: Cough Last Admin: 12/09/18 11:45 Dose: 100 mg Vancomycin HCl 1 gm/ Sodium (Chloride) 250 mls @ 166.7 mls/hr IVPB Q12H [facility]; Protocol Last Admin: 12/10/18 10:20 Dose: 166.7 mls/hr Piperacillin Sod/Tazobactam (Sod 3.375 gm/ Sodium Chloride) 100 mls @ 200 mls/hr IVPB Q6H [facility]; Protocol Last Admin: 12/10/18 10:00 Dose: 200 mls/hr Insulin Detemir (Levemir) 25 unit SC Q12 [facility] Last Admin: 12/10/18 10:42 Dose: 25 units Insulin Human Regular (Novolin R) 0 unit SC ACHS [facility]; Protocol Last Admin: 12/10/18 08:30 Dose: 2 units Lactobacillus Acidophilus (Lactobacillus) 1 cap PO BID [facility] Last Admin: 12/10/18 10:18 Dose: 1 cap Methylprednisolone (Solu-Medrol) 30 mg 0.5 mg/kg (30 mg) IV BID [facility] Last Admin: 12/10/18 10:18 Dose: 30 mg Metoprolol Tartrate (Lopressor) 25 mg PO BID [facility] Last Admin: 12/10/18 10:19 Dose: 25 mg Montelukast Sodium (Singulair) 10 mg PO HS [facility] Last Admin: 12/09/18 22:04 Dose: 10 mg Multivitamins (Hexavitamin) 1 tab PO DAILY [facility] Last Admin: 12/10/18 10:19 Dose: 1 tab - Labs Labs: 12/10/18 09:34 12/10/18 09:34 PT 18.6 SECONDS (9.7-12.2) H 11/30/18 09:35 INR 1.7 11/30/18 09:35 APTT 40 SECONDS (21-34) H 11/30/18 09:35 - Constitutional Appears: Well, Non-toxic - Head Exam Head Exam: ATRAUMATIC, NORMAL INSPECTION - Eye Exam Eye Exam: EOMI, Normal appearance Pupil Exam: NORMAL ACCOMODATION - ENT Exam ENT Exam: Mucous Membranes Moist - Neck Exam Neck Exam: Full ROM - Respiratory Exam Respiratory Exam: Decreased Breath Sounds, Prolonged Expiratory Phase, Rhonchi. absent: Accessory Muscle Use, Chest Wall Tenderness, Clear to Ausculation Bilateral, Rales, Wheezes - Cardiovascular Exam Cardiovascular Exam: REGULAR RHYTHM, RRR, +S1, +S2. absent: Bradycardia, Tachycardia, Gallop, Irregular Rhythm, JVD - GI/Abdominal Exam GI & Abdominal Exam: Distended, Soft, Normal Bowel Sounds. absent: Rigid, Tenderness - Back Exam Back Exam: absent: CVA tenderness (L), CVA tenderness (R) - Neurological Exam Neurological Exam: Alert, Altered Assessment and Plan (1) COPD exacerbation Status: Acute (2) Dyspnea Status: Acute (3) HIV (human immunodeficiency virus infection) Status: Acute (4) Leukocytosis Status: Acute (5) Lung cancer Status: Acute (6) Sepsis Status: Acute
--- NOTE | 2018-12-10 12:04 | RAD ---
Date of service: 12/10/2018 HISTORY: concern for aspiration pna COMPARISON: Comparison is made with 12/09/2018 TECHNIQUE: 1 view obtained. FINDINGS: LUNGS: Again noted is focal heterogeneous infiltrate at the right upper lung and right lung base. PLEURA: No significant pleural effusion identified, no pneumothorax apparent. CARDIOVASCULAR: No aortic atherosclerotic calcification present. Normal cardiac size. No pulmonary vascular congestion. OSSEOUS STRUCTURES: No significant abnormalities. VISUALIZED UPPER ABDOMEN: Normal. OTHER FINDINGS: None. IMPRESSION: Heterogeneous opacity or infiltrate at the right lung again noted.
--- NOTE | 2018-12-10 12:06 | PN ---
DATE: 12/10/2018 LOCATION: ICU 7. SUBJECTIVE: This is a 63-year-old male seen and examined on round with reported periods of agitation, restless with intermittent periods of shortness of breath and tachycardia, but no reported actual chest pain. No reported nausea or vomiting but dyspepsia. The patient had been refusing BiPAP, but still on nasal cannula. The entire chart is reviewed including but not limited to the most recent lab and radiology study results, current and the previous medication list. The patient reported to have abnormal ABGs and the latest blood glucose level reported to be 150 with reported leukocytosis but low hemoglobin and hematocrit with low indices highly suggestive of hypochromic, microcytic anemia with increased BUN but normal creatinine, increased CO2 content indicative of respiratory alkalosis with magnesium elevated as well as increased alkaline phosphatase with low albumin. Today's chest x-ray report is still pending; however, yesterday chest x-ray official report is seen indicative of persistent opacity at the right upper lobe, which may represent pneumonia or neoplasm. PHYSICAL EXAMINATION: GENERAL: A 63-year-old male. VITAL SIGNS: Temperature of 99, heart rate of 124, respiratory rate 20 to 22, blood pressure 120/74. HEENT: Showed pale dry oral mucous membrane. Nonicteric sclerae. LUNGS: Few scattered crepitation. Decreased air entry at bases. HEART: Positive S1 and S2. ABDOMEN: Soft. Bowel sounds are hypoactive with mild abdominal distention. EXTREMITIES: With mild lower extremity edematous changes. No clubbing or cyanosis. NEUROLOGIC: No reported new neurological deficit. It has to be mentioned that the patient is post Rapid Response due to his respiratory distress and tachycardia. Official note seen. IMPRESSION: 1. Hypochromic microcytic anemia. 2. Pneumonia with respiratory insufficiency. 3. Tachycardia secondary to above with hypoxia. 4. Re-exacerbation of peptic ulcer disease. 5. Known history of chronic obstructive pulmonary disease with lung mass lesion and possible pneumonia. 6. History of human immunodeficiency virus by record. 7. Poorly controlled diabetes mellitus. 8. Reported history of sleep apnea. SUGGESTION: 1. Continue current management. 2. The patient may need biopsy of the lung mass. 3. Repeat stool for occult blood. 4. Peripheral hyperalimentation. 5. Further recommendation to follow. Sarai Reynolds MD [facility] # [id number]
--- NOTE | 2018-12-10 21:39 | CP.PCM.PN ---
Subjective - Date & Time of Evaluation Date of Evaluation: 12/10/18 Time of Evaluation: 10:00 - Subjective Subjective: recurrent fevers IV antibiotics were d/c'd recultured and restarted poor prognosis Objective - Vital Signs/Intake and Output Vital Signs (last 24 hours): Temp Pulse Resp BP Pulse Ox 98.1 F 95 H 18 106/67 100 12/10/18 12:00 12/10/18 14:53 12/10/18 14:53 12/10/18 14:53 12/10/18 14:00 Intake and Output: 12/10/18 12/10/18 06:59 18:59 Output Total 500 Balance -500 - Medications Medications: Current Medications Acetaminophen (Tylenol 325mg Tab) 650 mg PO Q6 PRN PRN Reason: Pain, moderate (4-7) Last Admin: 12/03/18 12:48 Dose: 650 mg Alprazolam (Xanax) 0.25 mg PO Q8H PRN PRN Reason: Anxiety Stop: 12/15/18 18:01 Amlodipine Besylate (Norvasc) 5 mg PO DAILY [facility] Last Admin: 12/10/18 10:18 Dose: 5 mg Aspirin (Aspirin Chewable) 81 mg PO DAILY [facility] Last Admin: 12/10/18 10:19 Dose: 81 mg Belladonna/Phenobarbital () 1 tab PO TID [facility] Last Admin: 12/10/18 13:24 Dose: 1 tab Budesonide (Pulmicort Respules) 0.25 mg INH RQ12 [facility] Last Admin: 12/10/18 11:31 Dose: Not Given Clotrimazole (Mycelex Reilly) 10 mg MT 5XD [facility] Last Admin: 12/10/18 13:24 Dose: 10 mg Emollient Ointment (Vaseline Oint) 5 gm TOP Q4H PRN PRN Reason: DRY LIPS Last Admin: 12/10/18 10:19 Dose: 5 gm Enoxaparin Sodium (Lovenox) 40 mg SC DAILY [facility] Last Admin: 12/10/18 10:18 Dose: 40 mg Famotidine (Pepcid) 20 mg PO 1000 [facility] Last Admin: 12/10/18 10:19 Dose: 20 mg Ferrous Gluconate (Fergon) 324 mg PO DAILY [facility] Last Admin: 12/10/18 10:19 Dose: 324 mg Furosemide (Lasix) 20 mg IVP DAILY [facility] Last Admin: 12/10/18 12:45 Dose: 20 mg Gabapentin (Neurontin) 300 mg PO TID [facility] Last Admin: 12/10/18 13:34 Dose: 300 mg Guaifenesin (Robitussin) 100 mg PO Q4H PRN PRN Reason: Cough Last Admin: 12/09/18 11:45 Dose: 100 mg Vancomycin HCl 1 gm/ Sodium (Chloride) 250 mls @ 166.7 mls/hr IVPB Q12H [facility]; Protocol Last Admin: 12/10/18 10:20 Dose: 166.7 mls/hr Piperacillin Sod/Tazobactam (Sod 3.375 gm/ Sodium Chloride) 100 mls @ 200 mls/hr IVPB Q6H [facility]; Protocol Last Admin: 12/10/18 10:00 Dose: 200 mls/hr Insulin Detemir (Levemir) 25 unit SC Q12 [facility] Last Admin: 12/10/18 10:42 Dose: 25 units Insulin Human Regular (Novolin R) 0 unit SC ACHS [facility]; Protocol Last Admin: 12/10/18 12:30 Dose: Not Given Lactobacillus Acidophilus (Lactobacillus) 1 cap PO BID [facility] Last Admin: 12/10/18 10:18 Dose: 1 cap Methylprednisolone (Solu-Medrol) 30 mg 0.5 mg/kg (30 mg) IV BID [facility] Last Admin: 12/10/18 10:18 Dose: 30 mg Metoprolol Tartrate (Lopressor) 25 mg PO BID [facility] Last Admin: 12/10/18 10:19 Dose: 25 mg Montelukast Sodium (Singulair) 10 mg PO HS [facility] Last Admin: 12/09/18 22:04 Dose: 10 mg Multivitamins (Hexavitamin) 1 tab PO DAILY [facility] Last Admin: 12/10/18 10:19 Dose: 1 tab - Labs Labs: 12/10/18 09:34 12/10/18 09:34 PT 18.6 SECONDS (9.7-12.2) H 11/30/18 09:35 INR 1.7 11/30/18 09:35 APTT 40 SECONDS (21-34) H 11/30/18 09:35 - Constitutional Appears: Cachectic, Chronically Ill - Head Exam Head Exam: NORMOCEPHALIC (X) - Eye Exam Eye Exam: absent: Scleral icterus - ENT Exam ENT Exam: Mucous Membranes Dry - Neck Exam Neck Exam: absent: Lymphadenopathy - Respiratory Exam Respiratory Exam: Decreased Breath Sounds, Prolonged Expiratory Phase, Rhonchi - Cardiovascular Exam Cardiovascular Exam: REGULAR RHYTHM, +S1, +S2 - GI/Abdominal Exam GI & Abdominal Exam: Distended, Soft - Rectal Exam Rectal Exam: Deferred - Exam Exam: NORMAL INSPECTION - Extremities Exam Extremities Exam: absent: Pedal Edema - Back Exam Back Exam: absent: CVA tenderness (L), CVA tenderness (R) - Neurological Exam Neurological Exam: Alert, Awake, CN II-XII Intact - Psychiatric Exam Psychiatric exam: Depressed - Skin Skin Exam: Dry Assessment and Plan (1) COPD exacerbation Status: Acute (2) Dyspnea Status: Acute (3) Sepsis Status: Acute (4) ARF (acute renal failure) Status: Acute (5) HIV (human immunodeficiency virus infection) Status: Acute - Assessment and Plan (Free Text) Assessment: POST OBSTRUCTIVE PNEUMONIA CA LUNG HIV/AIDS RESP FAILURE COPD POOR PROGNOSIS RESUME IV ANTIBIOTICS
[2018-12-11] MEDS: Piperacillin/Tazobact 3.375 GM in Sodium Chloride 100 ML IVPB SCH ×4 (03:03→21:53)
--- NOTE | 2018-12-11 07:30 | PCM.RRT ---
<Óscar oJnes - Last Filed: 12/11/18 08:42> SPINDLE SANDER Nurses Assessment - Situation Date: 12/11/18 Time SPINDLE SANDER was called: 08:14 SPINDLE SANDER Responder Arrival Time:: 08:15 SPINDLE SANDER Location:: ICU SPINDLE SANDER Reason for Call: Respiratory Distress, O2 Saturation below 90% SPINDLE SANDER Called By: RN - IV IV Inserted during SPINDLE SANDER?: No - Respiratory SPINDLE SANDER Delivery Method: BiPAP @% Received Nebulizer Treatments: No Secretions Suctioned?: Yes Was the Patient Intubated?: No Was the Patient Placed on a Ventilator?: No - Ventilator Settings FIO2 (% Oxygen): 50 - Medication Medications Administered During SPINDLE SANDER: Morphine 2mg - Diagnostic Test Ordered Chest X-Ray: No CT Scan: No - Stat Labs Ordered SPINDLE SANDER Stat Labs Ordered: ABG CPR started during SPINDLE SANDER?: No - [place] Coma Scale Coma Scale Eye Opening: Spontaneous Coma Scale Motor: Obeys Commands Movement Coma Scale Verbal: Oriented Coma Scale Total: 15 - Recommendations 5) SPINDLE SANDER Level of Care Recommendations: Remain in current setting I.Reason for SPINDLE SANDER - A) Acute Change in Patient: (Select all that apply): Staff member or family is worried about patient, Acute change in SpO2 less Subjective: SPINDLE SANDER called at 7:22 AM Patient found in bed 7 in ICU. He was oxygenating in the low 70s and nursing called SPINDLE SANDER. Patient was initially combative and was given morphine 2mg. Temperature (axillary 97.7). Patient relaxed and accepted BiPAP - oxygen saturation improved to 100%. Tachycardia persistent through admission which did not decrease with morphine. Patient treated for pneumonia w/ vanco/zosyn - ID Dr. Thompson on board. Afebrile for 24hrs. Patient denied chest pain, SOB. - Neurological Status (Select all that apply): Alert, Oriented, Verbal, Follows Commands - Respiratory Oxygen Delivery Method: BiPAP @% - Constitutional Appears: Non-toxic - Head Head Exam: ATRAUMATIC, NORMAL INSPECTION - Eyes Eye Exam: EOMI - Respiratory Exam Respiratory Exam: Accessory Muscle Use, Respiratory Distress (mild; abated w/ BIPAP). absent: Clear to Ausculation Bilateral (crackles RUL), Rales, Rhonchi, Wheezes, NORMAL BREATHING PATTERN - Cardiovascular Exam Cardiovascular Exam: Tachycardia, +S1, +S2 - GI/Abdominal Exam GI & Abdominal Exam: Soft, Normal Bowel Sounds. absent: Tenderness - Neurological Exam Neurological Exam: Alert, Awake, Oriented x3 - Extremities Exam Extremities Exam: Full ROM Plan - Assessment of Findings&Treatment Plan Hypoxemia O2 sat 76%, so SPINDLE SANDER called BiPAP restarted: O2 improved to 100% Continue Singulair, Solumedrol 30mg Q12H CXR from 12/10/18: opacities in right upper and lower lobes Dr. Thompson on board: pt on Vanco/Zosyn Pt afebrile for 24hrs (Tmax 102.7 on 12/10/18) Dr Garcia made aware of SPINDLE SANDER by ICU nursing staff <Jayme Tony - Last Filed: 12/11/18 13:30> Attending/Attestation - Attestation I have personally seen and examined this patient.: Yes I have fully participated in the care of the patient.: Yes I have reviewed all pertinent clinical information, including history, physical exam and plan: Yes Notes (Text): seen and examined during SPINDLE SANDER Assessment and the plan as above. 12/11/18 13:28
[2018-12-11] MEDS: Budesonide 0.25 mg/2 ml Inhal Susp UD INH SCH (08:49)
[2018-12-11] MEDS: LIPASE/PROTEASE/AMYLASE 4,200 U ECC PO SCH ×3 (09:02→17:27)
[2018-12-11] MEDS: Belladonna-Phenobarbital PO SCH ×3 (09:04→17:28)
[2018-12-11] MEDS: Lactobacillus Acidophilus 500 MU Cap PO SCH ×2 (09:04→17:28)
[2018-12-11] MEDS: Multiple Vitamins Tab PO SCH (09:04)
[2018-12-11] MEDS: (Novolin R) Insulin Human Regular 100 units/ml vial SC SCH ×4 (09:07→21:53)
[2018-12-11] MEDS: Enoxaparin 40 mg Syringe SC SCH (09:07)
[2018-12-11] MEDS: MethylPREDNISolone 40 mg Vial IV SCH ×2 (09:09→17:27)
[2018-12-11] MEDS: Insulin Detemir 100 units/ml Vial (Levemir) SC SCH ×2 (09:32→21:54)
--- NOTE | 2018-12-11 09:43 | CP.PCM.PN ---
Subjective - Date & Time of Evaluation Date of Evaluation: 12/11/18 Time of Evaluation: 09:40 - Subjective Subjective: Progress Note for Dr. Alfaro's service S/E at bedside. Offers limited information due to combative nature. States sob is improved. S/P REPORTING SPECIALIST at 7:22 for hypoxia. Please refer to note. Limited ROS due to agitation Deferred physical exam after REPORTING SPECIALIST Objective - Vital Signs/Intake and Output Vital Signs (last 24 hours): Temp Pulse Resp BP Pulse Ox 98.2 F 127 H 21 92/56 L 95 12/10/18 20:00 12/11/18 07:40 12/10/18 20:00 12/11/18 09:08 12/10/18 20:00 Intake and Output: 12/11/18 12/11/18 06:59 18:59 Intake Total 240 Output Total 500 Balance -260 - Medications Medications: Current Medications Acetaminophen (Tylenol 325mg Tab) 650 mg PO Q6 PRN PRN Reason: Pain, moderate (4-7) Last Admin: 12/03/18 12:48 Dose: 650 mg Alprazolam (Xanax) 0.25 mg PO Q8H PRN PRN Reason: Anxiety Stop: 12/15/18 18:01 Last Admin: 12/11/18 06:52 Dose: 0.25 mg Amlodipine Besylate (Norvasc) 5 mg PO DAILY [facility] Last Admin: 12/11/18 09:07 Dose: Not Given Aspirin (Aspirin Chewable) 81 mg PO DAILY [facility] Last Admin: 12/11/18 09:08 Dose: 81 mg Belladonna/Phenobarbital () 1 tab PO TID [facility] Last Admin: 12/11/18 09:04 Dose: 1 tab Budesonide (Pulmicort Respules) 0.25 mg INH RQ12 [facility] Last Admin: 12/11/18 08:49 Dose: Not Given Clotrimazole (Mycelex Reilly) 10 mg MT 5XD [facility] Last Admin: 12/11/18 09:32 Dose: 10 mg Emollient Ointment (Vaseline Oint) 5 gm TOP Q4H PRN PRN Reason: DRY LIPS Last Admin: 12/10/18 19:45 Dose: 5 gm Enoxaparin Sodium (Lovenox) 40 mg SC DAILY [facility] Last Admin: 12/11/18 09:07 Dose: 40 mg Famotidine (Pepcid) 20 mg PO 1000 [facility] Last Admin: 12/11/18 09:06 Dose: 20 mg Ferrous Gluconate (Fergon) 324 mg PO DAILY [facility] Last Admin: 12/11/18 09:04 Dose: 324 mg Furosemide (Lasix) 20 mg IVP DAILY [facility] Last Admin: 12/11/18 09:06 Dose: Not Given Gabapentin (Neurontin) 300 mg PO TID [facility] Last Admin: 12/11/18 09:32 Dose: 300 mg Guaifenesin (Robitussin) 100 mg PO Q4H PRN PRN Reason: Cough Last Admin: 12/09/18 11:45 Dose: 100 mg Vancomycin HCl 1 gm/ Sodium (Chloride) 250 mls @ 166.7 mls/hr IVPB Q12H [facility]; Protocol Last Admin: 12/10/18 21:12 Dose: 166.7 mls/hr Piperacillin Sod/Tazobactam (Sod 3.375 gm/ Sodium Chloride) 100 mls @ 200 mls/hr IVPB Q6H [facility]; Protocol Last Admin: 12/11/18 09:03 Dose: 200 mls/hr Insulin Detemir (Levemir) 25 unit SC Q12 [facility] Last Admin: 12/11/18 09:32 Dose: 25 units Insulin Human Regular (Novolin R) 0 unit SC ACHS [facility]; Protocol Last Admin: 12/11/18 09:07 Dose: Not Given Lactobacillus Acidophilus (Lactobacillus) 1 cap PO BID [facility] Last Admin: 12/11/18 09:04 Dose: 1 cap Methylprednisolone (Solu-Medrol) 30 mg 0.5 mg/kg (30 mg) IV BID [facility] Last Admin: 12/11/18 09:09 Dose: 30 mg Metoprolol Tartrate (Lopressor) 25 mg PO BID [facility] Last Admin: 12/11/18 09:08 Dose: Not Given Montelukast Sodium (Singulair) 10 mg PO HS [facility] Last Admin: 12/10/18 21:12 Dose: 10 mg Multivitamins (Hexavitamin) 1 tab PO DAILY [facility] Last Admin: 12/11/18 09:04 Dose: 1 tab - Labs Labs: 12/10/18 09:34 12/10/18 09:34 PT 18.6 SECONDS (9.7-12.2) H 11/30/18 09:35 INR 1.7 11/30/18 09:35 APTT 40 SECONDS (21-34) H 11/30/18 09:35 Assessment and Plan - Assessment and Plan (Free Text) Assessment: 63 yo male w/ PMH of COPD exacerbation, lung cancer, HIV, HTN, DM, Hepatitis C, chronic Pancreatitis admitted for worsening sob. Pulm consulted for COPD exacerbation and lung cancer history. Patient DNR/DNi Plan: A: COPD exacerbation Hx of lung cancer P: Continue Pulmicort, Singulair and IV steroids for COPD IV abx as patient has fever recenty; further management as per ID Continue Robitussin Poor prognosis
--- NOTE | 2018-12-11 11:22 | CP.PCM.PN ---
Subjective - Date & Time of Evaluation Date of Evaluation: 12/11/18 Time of Evaluation: 09:00 - Subjective Subjective: doing poorly weak and lethargic very depressed ' less fever Objective - Vital Signs/Intake and Output Vital Signs (last 24 hours): Temp Pulse Resp BP Pulse Ox 98.2 F 127 H 21 92/56 L 95 12/10/18 20:00 12/11/18 07:40 12/10/18 20:00 12/11/18 09:08 12/10/18 20:00 Intake and Output: 12/11/18 12/11/18 06:59 18:59 Intake Total 240 Output Total 500 Balance -260 - Medications Medications: Current Medications Acetaminophen (Tylenol 325mg Tab) 650 mg PO Q6 PRN PRN Reason: Pain, moderate (4-7) Last Admin: 12/03/18 12:48 Dose: 650 mg Alprazolam (Xanax) 0.25 mg PO Q8H PRN PRN Reason: Anxiety Stop: 12/15/18 18:01 Last Admin: 12/11/18 06:52 Dose: 0.25 mg Amlodipine Besylate (Norvasc) 5 mg PO DAILY [facility] Last Admin: 12/11/18 09:07 Dose: Not Given Aspirin (Aspirin Chewable) 81 mg PO DAILY [facility] Last Admin: 12/11/18 09:08 Dose: 81 mg Belladonna/Phenobarbital () 1 tab PO TID [facility] Last Admin: 12/11/18 09:04 Dose: 1 tab Budesonide (Pulmicort Respules) 0.25 mg INH RQ12 [facility] Last Admin: 12/11/18 08:49 Dose: Not Given Clotrimazole (Mycelex Reilly) 10 mg MT 5XD [facility] Last Admin: 12/11/18 09:32 Dose: 10 mg Emollient Ointment (Vaseline Oint) 5 gm TOP Q4H PRN PRN Reason: DRY LIPS Last Admin: 12/10/18 19:45 Dose: 5 gm Enoxaparin Sodium (Lovenox) 40 mg SC DAILY [facility] Last Admin: 12/11/18 09:07 Dose: 40 mg Famotidine (Pepcid) 20 mg PO 1000 [facility] Last Admin: 12/11/18 09:06 Dose: 20 mg Ferrous Gluconate (Fergon) 324 mg PO DAILY [facility] Last Admin: 12/11/18 09:04 Dose: 324 mg Furosemide (Lasix) 20 mg IVP DAILY [facility] Last Admin: 12/11/18 09:06 Dose: Not Given Gabapentin (Neurontin) 300 mg PO TID [facility] Last Admin: 12/11/18 09:32 Dose: 300 mg Guaifenesin (Robitussin) 100 mg PO Q4H PRN PRN Reason: Cough Last Admin: 12/09/18 11:45 Dose: 100 mg Vancomycin HCl 1 gm/ Sodium (Chloride) 250 mls @ 166.7 mls/hr IVPB Q12H [facility]; Protocol Last Admin: 12/10/18 21:12 Dose: 166.7 mls/hr Piperacillin Sod/Tazobactam (Sod 3.375 gm/ Sodium Chloride) 100 mls @ 200 mls/hr IVPB Q6H [facility]; Protocol Last Admin: 12/11/18 09:03 Dose: 200 mls/hr Insulin Detemir (Levemir) 25 unit SC Q12 [facility] Last Admin: 12/11/18 09:32 Dose: 25 units Insulin Human Regular (Novolin R) 0 unit SC ACHS [facility]; Protocol Last Admin: 12/11/18 09:07 Dose: Not Given Lactobacillus Acidophilus (Lactobacillus) 1 cap PO BID [facility] Last Admin: 12/11/18 09:04 Dose: 1 cap Methylprednisolone (Solu-Medrol) 30 mg 0.5 mg/kg (30 mg) IV BID [facility] Last Admin: 12/11/18 09:09 Dose: 30 mg Metoprolol Tartrate (Lopressor) 25 mg PO BID [facility] Last Admin: 12/11/18 09:08 Dose: Not Given Montelukast Sodium (Singulair) 10 mg PO HS [facility] Last Admin: 12/10/18 21:12 Dose: 10 mg Multivitamins (Hexavitamin) 1 tab PO DAILY [facility] Last Admin: 12/11/18 09:04 Dose: 1 tab - Labs Labs: 12/10/18 09:34 12/10/18 09:34 PT 18.6 SECONDS (9.7-12.2) H 11/30/18 09:35 INR 1.7 11/30/18 09:35 APTT 40 SECONDS (21-34) H 11/30/18 09:35 - Constitutional Appears: Cachectic, Chronically Ill - Head Exam Head Exam: NORMOCEPHALIC - Eye Exam Eye Exam: absent: Scleral icterus Pupil Exam: NORMAL ACCOMODATION - ENT Exam ENT Exam: Mucous Membranes Dry - Neck Exam Neck Exam: absent: Lymphadenopathy - Respiratory Exam Respiratory Exam: Decreased Breath Sounds, Prolonged Expiratory Phase, Rhonchi - Cardiovascular Exam Cardiovascular Exam: Tachycardia, REGULAR RHYTHM, +S1, +S2 - GI/Abdominal Exam GI & Abdominal Exam: Distended, Soft - Rectal Exam Rectal Exam: Deferred - Exam Exam: NORMAL INSPECTION - Extremities Exam Extremities Exam: absent: Pedal Edema - Back Exam Back Exam: absent: CVA tenderness (L), CVA tenderness (R) - Neurological Exam Neurological Exam: Alert, Awake, Oriented x3 - Psychiatric Exam Psychiatric exam: absent: Depressed - Skin Skin Exam: Dry Assessment and Plan (1) COPD exacerbation Status: Acute (2) Dyspnea Status: Acute (3) Sepsis Status: Acute (4) ARF (acute renal failure) Status: Acute (5) HIV (human immunodeficiency virus infection) Status: Acute - Assessment and Plan (Free Text) Assessment: cultures and imaging reviewed cont IV rx poor prognosis
[2018-12-11] MEDS: guaiFENesin 100 mg/5 ml Syrup UD PO PRN (11:43)
[2018-12-11 12:03] LABS: BASO % 0.1 % (0.0-2.0); HEMOGLOBIN 7.9 g/dL (12.0-18.0); LYMPH # 0.2 K/uL (1.0-4.3); MEAN CELL VOLUME 83.6 fL (80.0-94.0); MEAN CORPUSCULAR HEMOGLOBIN 25.5 pg (27.0-31.0); MEAN CORPUSCULAR HGB CONC 30.6 g/dL (33.0-37.0); MONO # 0.8 K/uL (0.0-0.8); NEUT # 19.9 K/uL (1.8-7.0); NEUT % 94.9 % (50.0-75.0); PLATELET COUNT 317 K/uL (130-400); RED CELL DISTRIBUTION WIDTH 16.7 % (11.5-14.5); WHITE BLOOD COUNT 20.9 K/uL (4.8-10.8)
[2018-12-11 12:11] LABS: ALB/GLOB RATIO 0.9 (1.0-2.1); ALBUMIN 2.8 g/dL (3.5-5.0); ALT/SGPT 11 U/L (21-72); AST/SGOT 16 U/L (17-59); BLOOD UREA NITROGEN 26 mg/dL (9-20); CALCIUM 8.1 mg/dl (8.6-10.4); GFR NON-AFRICAN AMERICAN > 60
[2018-12-11 12:50] LABS: LYMPHOCYTE 2 % (20-40); TOTAL CELLS COUNTED 100
[2018-12-11 13:00] LABS: ANISOCYTOSIS SLIGHT; HYPOCHROMIC SLIGHT; MONOCYTE 3 % (0-10); NEUTROPHIL 95 % (50-75); PLATELET ESTIMATE NORMAL (NORMAL); POIKILOCYTOSIS SLIGHT
[2018-12-11 13:02] LABS: TARGET CELLS SLIGHT
--- NOTE | 2018-12-11 17:10 | CP.PCM.PN ---
Subjective - Date & Time of Evaluation Date of Evaluation: 12/11/18 Time of Evaluation: 17:08 - Subjective Subjective: seen in icu tolerating bipap weeke coughing Objective - Vital Signs/Intake and Output Vital Signs (last 24 hours): Temp Pulse Resp BP Pulse Ox 98.2 F 103 H 15 95/67 L 95 12/10/18 20:00 12/11/18 12:00 12/11/18 12:00 12/11/18 12:00 12/11/18 12:00 Intake and Output: 12/11/18 12/11/18 06:59 18:59 Intake Total 240 Output Total 500 Balance -260 - Medications Medications: Current Medications Acetaminophen (Tylenol 325mg Tab) 650 mg PO Q6 PRN PRN Reason: Pain, moderate (4-7) Last Admin: 12/03/18 12:48 Dose: 650 mg Alprazolam (Xanax) 0.25 mg PO Q8H PRN PRN Reason: Anxiety Stop: 12/15/18 18:01 Last Admin: 12/11/18 06:52 Dose: 0.25 mg Amlodipine Besylate (Norvasc) 5 mg PO DAILY [facility] Last Admin: 12/11/18 09:07 Dose: Not Given Aspirin (Aspirin Chewable) 81 mg PO DAILY [facility] Last Admin: 12/11/18 09:08 Dose: 81 mg Belladonna/Phenobarbital () 1 tab PO TID [facility] Last Admin: 12/11/18 13:07 Dose: 1 tab Budesonide (Pulmicort Respules) 0.25 mg INH RQ12 [facility] Last Admin: 12/11/18 08:49 Dose: Not Given Clotrimazole (Mycelex Reilly) 10 mg MT 5XD [facility] Last Admin: 12/11/18 13:08 Dose: Not Given Emollient Ointment (Vaseline Oint) 5 gm TOP Q4H PRN PRN Reason: DRY LIPS Last Admin: 12/10/18 19:45 Dose: 5 gm Enoxaparin Sodium (Lovenox) 40 mg SC DAILY [facility] Last Admin: 12/11/18 09:07 Dose: 40 mg Famotidine (Pepcid) 20 mg PO 1000 [facility] Last Admin: 12/11/18 09:06 Dose: 20 mg Ferrous Gluconate (Fergon) 324 mg PO DAILY [facility] Last Admin: 12/11/18 09:04 Dose: 324 mg Furosemide (Lasix) 20 mg IVP DAILY [facility] Last Admin: 12/11/18 09:06 Dose: Not Given Gabapentin (Neurontin) 300 mg PO TID [facility] Last Admin: 12/11/18 13:08 Dose: 300 mg Guaifenesin (Robitussin) 100 mg PO Q4H PRN PRN Reason: Cough Last Admin: 12/11/18 11:43 Dose: 100 mg Vancomycin HCl 1 gm/ Sodium (Chloride) 250 mls @ 166.7 mls/hr IVPB Q12H [facility]; Protocol Last Admin: 12/11/18 11:39 Dose: 166.7 mls/hr Piperacillin Sod/Tazobactam (Sod 3.375 gm/ Sodium Chloride) 100 mls @ 200 mls/hr IVPB Q6H [facility]; Protocol Last Admin: 12/11/18 15:52 Dose: 200 mls/hr Insulin Detemir (Levemir) 25 unit SC Q12 [facility] Last Admin: 12/11/18 09:32 Dose: 25 units Insulin Human Regular (Novolin R) 0 unit SC ACHS [facility]; Protocol Last Admin: 12/11/18 12:35 Dose: 3 units Lactobacillus Acidophilus (Lactobacillus) 1 cap PO BID [facility] Last Admin: 12/11/18 09:04 Dose: 1 cap Methylprednisolone (Solu-Medrol) 30 mg 0.5 mg/kg (30 mg) IV BID [facility] Last Admin: 12/11/18 09:09 Dose: 30 mg Metoprolol Tartrate (Lopressor) 25 mg PO BID [facility] Last Admin: 12/11/18 09:08 Dose: Not Given Montelukast Sodium (Singulair) 10 mg PO HS [facility] Last Admin: 12/10/18 21:12 Dose: 10 mg Multivitamins (Hexavitamin) 1 tab PO DAILY [facility] Last Admin: 12/11/18 09:04 Dose: 1 tab - Labs Labs: 12/11/18 11:52 12/11/18 11:52 PT 18.6 SECONDS (9.7-12.2) H 11/30/18 09:35 INR 1.7 11/30/18 09:35 APTT 40 SECONDS (21-34) H 11/30/18 09:35 - Constitutional Appears: In Acute Distress - Head Exam Head Exam: ATRAUMATIC - Eye Exam Eye Exam: Normal appearance Pupil Exam: NORMAL ACCOMODATION - ENT Exam ENT Exam: Mucous Membranes Moist - Respiratory Exam Respiratory Exam: Decreased Breath Sounds, Rales - Cardiovascular Exam Cardiovascular Exam: REGULAR RHYTHM - GI/Abdominal Exam GI & Abdominal Exam: Normal Bowel Sounds - Exam Exam: NORMAL INSPECTION - Extremities Exam Extremities Exam: Normal Inspection - Neurological Exam Neurological Exam: Awake, Oriented x3 - Psychiatric Exam Psychiatric exam: Normal Affect - Skin Skin Exam: Pallor Assessment and Plan - Assessment and Plan (Free Text) Assessment: aneamia copd exacerbation ca lung lung infection hiv Plan: continu as per orders
--- NOTE | 2018-12-11 17:31 | PN ---
DATE: 12/11/2018 LOCATION: ICU 7. SUBJECTIVE: This is a 63-year-old male who has recently became in a status of DNR and DNI, seen and examined in rounds without reported significant clinical changes, lethargic, somewhat hesitated on BiPAP. The patient is still tachypneic and tachycardic, but no reported active GI bleeding. The entire chart is reviewed including not limited to the most recent lab and radiology study results. Today, lab results showed white blood cells of 20.9, hemoglobin 7.9, hematocrit 25.9 with low indices, but normal platelet count with increased CO2 content, increased BUN and normal creatinine with calcium 8.1, phosphorous 1.9, alkaline phosphatase 233, albumin 2.8 with total protein of 6.1. Most recently chest x-ray done yesterday, official report is seen. PHYSICAL EXAMINATION: GENERAL: This is a 63-year-old male. VITAL SIGNS: Afebrile with heart rate of 124, respiratory rate 22-24, blood pressure of 98/58. HEENT: Pale dry oral mucoid membrane. Nonicteric sclerae. LUNGS: Few scattered crepitation. Decreased air entry at bases. HEART: Positive S1 and S2. ABDOMEN: Soft with mild generalized tenderness. No mass or organomegaly. No rebound tenderness or guarding. EXTREMITIES: Without significant clubbing, cyanosis or edema. NEUROLOGIC: No reported new neurological deficits, sensory or motor. No reported new focal deficits. IMPRESSION: 1. Anemia hypochromic microcytic, subsequent gastrointestinal blood loss with , most likely anemia secondary to chronic disease. 2. Long history of human immunodeficiency virus. 3. Re-exacerbation of peptic ulcer disease. 4. Known history of chronic obstructive pulmonary disease with lung mass and possible pneumonia, slightly improving clinically. SUGGESTIONS: 1. Continue current management. 2. No need for further aggressive GI workup in the meantime. The patient central hyperalimentation. 3. We will follow up closely with you. Sarai Reynolds MD
--- NOTE | 2018-12-11 22:11 | CP.PCM.CON ---
History of Present Illness - History of Present Illness History of Present Illness: 63 year old male with a history of tobacco abuse, hep c, HIV, COPD, HTN, DM, admitted with shortness of breath, found to have lung cancer. The patient notes to progressive decline in his breathing. He underwent bronchoscopy which rev ealed non small cell lung cancer. His imaging is concerning for lymph node and liver metastasis. Past medical history: tobacco abuse, hep c, HIV, COPD, HTN, DM Past surgical history: Cataract surgery Family history: Denies hematologic and oncologic problems Social history: +tobacco abuse Allergies: NKA Review of systems: All remaining review of systems including HEENT, cardiovascular, respiratory, gastrointestinal, genitourinary, musculoskeletal, dermatologic, neurologic, and psychiatric are negative unless mentioned in the HPI. Past Patient History - Infectious Disease Hx of Infectious Diseases: None - Tetanus Immunizations Tetanus Immunization: Unknown - Past Medical History & Family History Past Medical History?: Yes - Past Social History Smoking Status: Former Smoker - CARDIAC Hx Congestive Heart Failure: Yes Hx Hypertension: Yes - PULMONARY Hx Chronic Obstructive Pulmonary Disease (COPD): Yes - NEUROLOGICAL Hx Seizures: No - HEENT Hx HEENT Problems: Yes Hx Cataracts: Yes (right eye sx) - RENAL Hx Chronic Kidney Disease: No - ENDOCRINE/METABOLIC Hx Diabetes Mellitus Type 2: Yes - HEMATOLOGICAL/ONCOLOGICAL Hx Cancer: No - INTEGUMENTARY Hx Dermatological Problems: No - MUSCULOSKELETAL/RHEUMATOLOGICAL Hx Arthritis: Yes (KNEES) - GASTROINTESTINAL Hx Pancreatitis: Yes - GENITOURINARY/GYNECOLOGICAL Hx Sexually Transmitted Disorders: No - PSYCHIATRIC Hx Anxiety: Yes Hx Substance Use: No - SURGICAL HISTORY Hx Mastectomy: No - ANESTHESIA Hx Anesthesia: Yes Hx Anesthesia Reactions: No Hx Malignant Hyperthermia: No Meds Allergies/Adverse Reactions: Allergies Allergy/AdvReac Type Severity Reaction Status Date / Time No Known Allergies Allergy Verified 11/30/18 09:28 - Medications Medications: Current Medications Acetaminophen (Tylenol 325mg Tab) 650 mg PO Q6 PRN PRN Reason: Pain, moderate (4-7) Last Admin: 12/03/18 12:48 Dose: 650 mg Alprazolam (Xanax) 0.25 mg PO Q8H PRN PRN Reason: Anxiety Stop: 12/15/18 18:01 Last Admin: 12/11/18 06:52 Dose: 0.25 mg Amlodipine Besylate (Norvasc) 5 mg PO DAILY [facility] Last Admin: 12/11/18 09:07 Dose: Not Given Aspirin (Aspirin Chewable) 81 mg PO DAILY [facility] Last Admin: 12/11/18 09:08 Dose: 81 mg Belladonna/Phenobarbital () 1 tab PO TID [facility] Last Admin: 12/11/18 17:28 Dose: 1 tab Budesonide (Pulmicort Respules) 0.25 mg INH RQ12 [facility] Last Admin: 12/11/18 08:49 Dose: Not Given Clotrimazole (Mycelex Reilly) 10 mg MT 5XD [facility] Last Admin: 12/11/18 17:28 Dose: 10 mg Emollient Ointment (Vaseline Oint) 5 gm TOP Q4H PRN PRN Reason: DRY LIPS Last Admin: 12/10/18 19:45 Dose: 5 gm Enoxaparin Sodium (Lovenox) 40 mg SC DAILY [facility] Last Admin: 12/11/18 09:07 Dose: 40 mg Famotidine (Pepcid) 20 mg PO 1000 [facility] Last Admin: 12/11/18 09:06 Dose: 20 mg Ferrous Gluconate (Fergon) 324 mg PO DAILY [facility] Last Admin: 12/11/18 09:04 Dose: 324 mg Furosemide (Lasix) 20 mg IVP DAILY [facility] Last Admin: 12/11/18 09:06 Dose: Not Given Gabapentin (Neurontin) 300 mg PO TID [facility] Last Admin: 12/11/18 17:26 Dose: 300 mg Guaifenesin (Robitussin) 100 mg PO Q4H PRN PRN Reason: Cough Last Admin: 12/11/18 11:43 Dose: 100 mg Vancomycin HCl 1 gm/ Sodium (Chloride) 250 mls @ 166.7 mls/hr IVPB Q12H [facility]; Protocol Last Admin: 12/11/18 11:39 Dose: 166.7 mls/hr Piperacillin Sod/Tazobactam (Sod 3.375 gm/ Sodium Chloride) 100 mls @ 200 mls/hr IVPB Q6H [facility]; Protocol Last Admin: 12/11/18 15:52 Dose: 200 mls/hr Insulin Detemir (Levemir) 25 unit SC Q12 [facility] Last Admin: 12/11/18 09:32 Dose: 25 units Insulin Human Regular (Novolin R) 0 unit SC ACHS [facility]; Protocol Last Admin: 12/11/18 17:28 Dose: 2 units Lactobacillus Acidophilus (Lactobacillus) 1 cap PO BID [facility] Last Admin: 12/11/18 17:28 Dose: 1 cap Methylprednisolone (Solu-Medrol) 30 mg 0.5 mg/kg (30 mg) IV BID [facility] Last Admin: 12/11/18 17:27 Dose: 30 mg Metoprolol Tartrate (Lopressor) 25 mg PO BID [facility] Last Admin: 12/11/18 17:26 Dose: 25 mg Montelukast Sodium (Singulair) 10 mg PO HS [facility] Last Admin: 12/10/18 21:12 Dose: 10 mg Multivitamins (Hexavitamin) 1 tab PO DAILY [facility] Last Admin: 12/11/18 09:04 Dose: 1 tab Physical Exam - Head Exam Head Exam: ATRAUMATIC - Eye Exam Eye Exam: Normal appearance - ENT Exam ENT Exam: Mucous Membranes Dry - Respiratory Exam Respiratory Exam: Decreased Breath Sounds - Cardiovascular Exam Cardiovascular Exam: +S1, +S2 - GI/Abdominal Exam GI & Abdominal Exam: Normal Bowel Sounds - Neurological Exam Neurological exam: Oriented x3 - Psychiatric Exam Psychiatric exam: Normal Affect, Normal Mood - Skin Skin Exam: Warm Results - Vital Signs Recent Vital Signs: Last Vital Signs Temp 98.2 F 12/10/18 20:00 Pulse 103 H 12/11/18 12:00 Resp 15 12/11/18 12:00 BP 100/68 12/11/18 17:26 Pulse Ox 95 12/11/18 12:00 - Labs Result Diagrams: 12/11/18 11:52 12/11/18 11:52 Labs: Laboratory Results - last 24 hr 12/11/18 12/11/18 12/11/18 11:52 11:52 19:41 WBC 20.9 H RBC 3.10 L Hgb 7.9 L Hct 25.9 L MCV 83.6 MCH 25.5 L MCHC 30.6 L RDW 16.7 H Plt Count 317 MPV 9.0 Neut % (Auto) 94.9 H Lymph % (Auto) 1.0 L [place] % (Auto) 4.0 Eos % (Auto) 0.0 Baso % (Auto) 0.1 Neut # (Auto) 19.9 H Lymph # (Auto) 0.2 L [place] # (Auto) 0.8 Eos # (Auto) 0.0 Baso # (Auto) 0.0 Neutrophils % (Manual) 95 H Lymphocytes % (Manual) 2 L Monocytes % (Manual) 3 Platelet Estimate Normal Hypochromasia (manual) Slight Poikilocytosis (manual Slight Anisocytosis (manual) Slight Target Cells Slight Sodium 136 Potassium 3.6 Chloride 96 L Carbon Dioxide 34 H Anion Gap 10 BUN 26 H Creatinine 0.8 Est GFR ( Amer) > 60 Est GFR (Non-Af Amer) > 60 Random Glucose 209 H D Calcium 8.1 L Phosphorus 1.9 L Magnesium 2.2 Total Bilirubin 0.4 AST 16 L ALT 11 L D Alkaline Phosphatase 233 H Total Protein 6.1 L Albumin 2.8 L Globulin 3.2 Albumin/Globulin Ratio 0.9 L Blood Type A POSITIVE Antibody Screen Negative Assessment & Plan (1) Leukocytosis Assessment and Plan: on antibiotics and steroids Status: Acute (2) Anemia Assessment and Plan: HIV and chronic disease Status: Acute (3) Lung cancer Assessment and Plan: stage IV outpatient treatment if clinically improved Status: Acute
--- NOTE | 2018-12-11 22:16 | CP.PCM.PN ---
Subjective - Date & Time of Evaluation Date of Evaluation: 12/09/18 Time of Evaluation: 17:00 - Subjective Subjective: Feels weak. Objective - Vital Signs/Intake and Output Vital Signs (last 24 hours): Temp Pulse Resp BP Pulse Ox 98.2 F 103 H 15 100/68 95 12/10/18 20:00 12/11/18 12:00 12/11/18 12:00 12/11/18 17:26 12/11/18 12:00 - Medications Medications: Current Medications Acetaminophen (Tylenol 325mg Tab) 650 mg PO Q6 PRN PRN Reason: Pain, moderate (4-7) Last Admin: 12/03/18 12:48 Dose: 650 mg Alprazolam (Xanax) 0.25 mg PO Q8H PRN PRN Reason: Anxiety Stop: 12/15/18 18:01 Last Admin: 12/11/18 06:52 Dose: 0.25 mg Amlodipine Besylate (Norvasc) 5 mg PO DAILY [facility] Last Admin: 12/11/18 09:07 Dose: Not Given Aspirin (Aspirin Chewable) 81 mg PO DAILY [facility] Last Admin: 12/11/18 09:08 Dose: 81 mg Belladonna/Phenobarbital () 1 tab PO TID [facility] Last Admin: 12/11/18 17:28 Dose: 1 tab Budesonide (Pulmicort Respules) 0.25 mg INH RQ12 [facility] Last Admin: 12/11/18 08:49 Dose: Not Given Clotrimazole (Mycelex Reilly) 10 mg MT 5XD [facility] Last Admin: 12/11/18 20:00 Dose: 10 mg Emollient Ointment (Vaseline Oint) 5 gm TOP Q4H PRN PRN Reason: DRY LIPS Last Admin: 12/10/18 19:45 Dose: 5 gm Enoxaparin Sodium (Lovenox) 40 mg SC DAILY [facility] Last Admin: 12/11/18 09:07 Dose: 40 mg Famotidine (Pepcid) 20 mg PO 1000 [facility] Last Admin: 12/11/18 09:06 Dose: 20 mg Ferrous Gluconate (Fergon) 324 mg PO DAILY [facility] Last Admin: 12/11/18 09:04 Dose: 324 mg Furosemide (Lasix) 20 mg IVP DAILY [facility] Last Admin: 12/11/18 09:06 Dose: Not Given Gabapentin (Neurontin) 300 mg PO TID [facility] Last Admin: 12/11/18 17:26 Dose: 300 mg Guaifenesin (Robitussin) 100 mg PO Q4H PRN PRN Reason: Cough Last Admin: 12/11/18 11:43 Dose: 100 mg Vancomycin HCl 1 gm/ Sodium (Chloride) 250 mls @ 166.7 mls/hr IVPB Q12H [facility]; Protocol Last Admin: 12/11/18 22:11 Dose: 166.7 mls/hr Piperacillin Sod/Tazobactam (Sod 3.375 gm/ Sodium Chloride) 100 mls @ 200 mls/hr IVPB Q6H [facility]; Protocol Last Admin: 12/11/18 21:53 Dose: 200 mls/hr Insulin Detemir (Levemir) 25 unit SC Q12 [facility] Last Admin: 12/11/18 21:54 Dose: 25 units Insulin Human Regular (Novolin R) 0 unit SC ACHS [facility]; Protocol Last Admin: 12/11/18 21:53 Dose: 3 units Lactobacillus Acidophilus (Lactobacillus) 1 cap PO BID [facility] Last Admin: 12/11/18 17:28 Dose: 1 cap Methylprednisolone (Solu-Medrol) 30 mg 0.5 mg/kg (30 mg) IV BID [facility] Last Admin: 12/11/18 17:27 Dose: 30 mg Metoprolol Tartrate (Lopressor) 25 mg PO BID [facility] Last Admin: 12/11/18 17:26 Dose: 25 mg Montelukast Sodium (Singulair) 10 mg PO HS [facility] Last Admin: 12/11/18 22:10 Dose: 10 mg Multivitamins (Hexavitamin) 1 tab PO DAILY [facility] Last Admin: 12/11/18 09:04 Dose: 1 tab - Labs Labs: 12/11/18 11:52 12/11/18 11:52 PT 18.6 SECONDS (9.7-12.2) H 11/30/18 09:35 INR 1.7 11/30/18 09:35 APTT 40 SECONDS (21-34) H 11/30/18 09:35 - Head Exam Head Exam: ATRAUMATIC - Eye Exam Eye Exam: Normal appearance - ENT Exam ENT Exam: Mucous Membranes Dry - Respiratory Exam Respiratory Exam: Decreased Breath Sounds - Cardiovascular Exam Cardiovascular Exam: +S1, +S2 - GI/Abdominal Exam GI & Abdominal Exam: Normal Bowel Sounds Assessment and Plan (1) Leukocytosis Assessment & Plan: on antibiotics and steroids Status: Acute (2) Anemia Assessment & Plan: HIV and chronic disease Status: Acute (3) Lung cancer Assessment & Plan: stage IV outpatient treatment if clinically improved Status: Acute
--- NOTE | 2018-12-11 22:17 | CP.PCM.PN ---
Subjective - Date & Time of Evaluation Date of Evaluation: 12/11/18 Time of Evaluation: 19:00 - Subjective Subjective: Feels weak. Objective - Vital Signs/Intake and Output Vital Signs (last 24 hours): Temp Pulse Resp BP Pulse Ox 98.2 F 103 H 15 100/68 95 12/10/18 20:00 12/11/18 12:00 12/11/18 12:00 12/11/18 17:26 12/11/18 12:00 - Medications Medications: Current Medications Acetaminophen (Tylenol 325mg Tab) 650 mg PO Q6 PRN PRN Reason: Pain, moderate (4-7) Last Admin: 12/03/18 12:48 Dose: 650 mg Alprazolam (Xanax) 0.25 mg PO Q8H PRN PRN Reason: Anxiety Stop: 12/15/18 18:01 Last Admin: 12/11/18 06:52 Dose: 0.25 mg Amlodipine Besylate (Norvasc) 5 mg PO DAILY [facility] Last Admin: 12/11/18 09:07 Dose: Not Given Aspirin (Aspirin Chewable) 81 mg PO DAILY [facility] Last Admin: 12/11/18 09:08 Dose: 81 mg Belladonna/Phenobarbital () 1 tab PO TID [facility] Last Admin: 12/11/18 17:28 Dose: 1 tab Budesonide (Pulmicort Respules) 0.25 mg INH RQ12 [facility] Last Admin: 12/11/18 08:49 Dose: Not Given Clotrimazole (Mycelex Reilly) 10 mg MT 5XD [facility] Last Admin: 12/11/18 20:00 Dose: 10 mg Emollient Ointment (Vaseline Oint) 5 gm TOP Q4H PRN PRN Reason: DRY LIPS Last Admin: 12/10/18 19:45 Dose: 5 gm Enoxaparin Sodium (Lovenox) 40 mg SC DAILY [facility] Last Admin: 12/11/18 09:07 Dose: 40 mg Famotidine (Pepcid) 20 mg PO 1000 [facility] Last Admin: 12/11/18 09:06 Dose: 20 mg Ferrous Gluconate (Fergon) 324 mg PO DAILY [facility] Last Admin: 12/11/18 09:04 Dose: 324 mg Furosemide (Lasix) 20 mg IVP DAILY [facility] Last Admin: 12/11/18 09:06 Dose: Not Given Gabapentin (Neurontin) 300 mg PO TID [facility] Last Admin: 12/11/18 17:26 Dose: 300 mg Guaifenesin (Robitussin) 100 mg PO Q4H PRN PRN Reason: Cough Last Admin: 12/11/18 11:43 Dose: 100 mg Vancomycin HCl 1 gm/ Sodium (Chloride) 250 mls @ 166.7 mls/hr IVPB Q12H [facility]; Protocol Last Admin: 12/11/18 22:11 Dose: 166.7 mls/hr Piperacillin Sod/Tazobactam (Sod 3.375 gm/ Sodium Chloride) 100 mls @ 200 mls/hr IVPB Q6H [facility]; Protocol Last Admin: 12/11/18 21:53 Dose: 200 mls/hr Insulin Detemir (Levemir) 25 unit SC Q12 [facility] Last Admin: 12/11/18 21:54 Dose: 25 units Insulin Human Regular (Novolin R) 0 unit SC ACHS [facility]; Protocol Last Admin: 12/11/18 21:53 Dose: 3 units Lactobacillus Acidophilus (Lactobacillus) 1 cap PO BID [facility] Last Admin: 12/11/18 17:28 Dose: 1 cap Methylprednisolone (Solu-Medrol) 30 mg 0.5 mg/kg (30 mg) IV BID [facility] Last Admin: 12/11/18 17:27 Dose: 30 mg Metoprolol Tartrate (Lopressor) 25 mg PO BID [facility] Last Admin: 12/11/18 17:26 Dose: 25 mg Montelukast Sodium (Singulair) 10 mg PO HS [facility] Last Admin: 12/11/18 22:10 Dose: 10 mg Multivitamins (Hexavitamin) 1 tab PO DAILY [facility] Last Admin: 12/11/18 09:04 Dose: 1 tab - Labs Labs: 12/11/18 11:52 12/11/18 11:52 PT 18.6 SECONDS (9.7-12.2) H 11/30/18 09:35 INR 1.7 11/30/18 09:35 APTT 40 SECONDS (21-34) H 11/30/18 09:35 - Head Exam Head Exam: ATRAUMATIC - Eye Exam Eye Exam: Normal appearance - ENT Exam ENT Exam: Mucous Membranes Dry - Respiratory Exam Respiratory Exam: Decreased Breath Sounds - Cardiovascular Exam Cardiovascular Exam: +S1, +S2 - GI/Abdominal Exam GI & Abdominal Exam: Normal Bowel Sounds Assessment and Plan (1) Leukocytosis Assessment & Plan: on antibiotics and steroids Status: Acute (2) Anemia Assessment & Plan: HIV and chronic disease Status: Acute (3) Lung cancer Assessment & Plan: stage IV outpatient treatment if clinically improved Status: Acute
[2018-12-12] MEDS: Piperacillin/Tazobact 3.375 GM in Sodium Chloride 100 ML IVPB SCH ×4 (04:00→22:55)
[2018-12-12] MEDS ORDERED: Oxycodone/Acetaminophen 5/325 mg Tab PO ONE (06:09)
[2018-12-12] MEDS: (Novolin R) Insulin Human Regular 100 units/ml vial SC SCH ×4 (07:30→22:59)
[2018-12-12 08:31] LABS: HEMOGLOBIN 7.1 g/dL (12.0-18.0); LYMPH % 5.2 % (20.0-40.0); MEAN CELL VOLUME 84.1 fL (80.0-94.0); MEAN CORPUSCULAR HEMOGLOBIN 25.4 pg (27.0-31.0); MEAN CORPUSCULAR HGB CONC 30.2 g/dL (33.0-37.0); MEAN PLATELET VOLUME 8.7 fL (7.2-11.7); MONO # 0.8 K/uL (0.0-0.8); MONO % 4.1 % (0.0-10.0); NEUT # 17.4 K/uL (1.8-7.0); NEUT % 90.7 % (50.0-75.0); NRBC % 0.1 % (0.0-2.0); PLATELET COUNT 307 K/uL (130-400); RBC 2.79 Mil/uL (4.40-5.90); RED CELL DISTRIBUTION WIDTH 16.4 % (11.5-14.5); WHITE BLOOD COUNT 19.2 K/uL (4.8-10.8)
[2018-12-12] MEDS: LIPASE/PROTEASE/AMYLASE 4,200 U ECC PO SCH ×3 (08:36→19:53)
[2018-12-12] MEDS: Budesonide 0.25 mg/2 ml Inhal Susp UD INH SCH ×2 (08:42→20:27)
[2018-12-12 08:49] LABS: ALB/GLOB RATIO 0.8 (1.0-2.1); ALBUMIN 2.7 g/dL (3.5-5.0); ALT/SGPT 8 U/L (21-72); AST/SGOT 28 U/L (17-59); BLOOD UREA NITROGEN 22 mg/dL (9-20); CALCIUM 8.3 mg/dl (8.6-10.4); GFR NON-AFRICAN AMERICAN > 60
[2018-12-12] MEDS: MethylPREDNISolone 40 mg Vial IV SCH ×2 (09:21→19:53)
[2018-12-12] MEDS: Lactobacillus Acidophilus 500 MU Cap PO SCH ×2 (09:28→19:53)
[2018-12-12] MEDS: Belladonna-Phenobarbital PO SCH ×3 (09:29→19:53)
[2018-12-12] MEDS: Multiple Vitamins Tab PO SCH (09:31)
[2018-12-12 09:41] LABS: ANISOCYTOSIS SLIGHT; LYMPHOCYTE 5 % (20-40); MONOCYTE 3 % (0-10); NEUTROPHIL 92 % (50-75); PLATELET ESTIMATE NORMAL (NORMAL); POIKILOCYTOSIS SLIGHT; TOTAL CELLS COUNTED 100
[2018-12-12 09:42] LABS: HYPOCHROMIC SLIGHT
[2018-12-12] MEDS: Insulin Detemir 100 units/ml Vial (Levemir) SC SCH ×2 (11:17→22:57)
--- NOTE | 2018-12-12 12:31 | CP.PCM.PN ---
Subjective - Date & Time of Evaluation Date of Evaluation: 12/12/18 Time of Evaluation: 12:29 - Subjective Subjective: pt feels beter no resp distress has family member by bed side willow him happy smiling Objective - Vital Signs/Intake and Output Vital Signs (last 24 hours): Temp Pulse Resp BP Pulse Ox 98.9 F 82 18 125/71 100 12/12/18 08:00 12/12/18 08:00 12/12/18 08:00 12/12/18 09:29 12/12/18 08:00 Intake and Output: 12/12/18 12/12/18 06:59 18:59 Intake Total 590 Output Total 500 Balance 90 - Medications Medications: Current Medications Acetaminophen (Tylenol 325mg Tab) 650 mg PO Q6 PRN PRN Reason: Pain, moderate (4-7) Last Admin: 12/03/18 12:48 Dose: 650 mg Alprazolam (Xanax) 0.25 mg PO Q8H PRN PRN Reason: Anxiety Stop: 12/15/18 18:01 Last Admin: 12/11/18 06:52 Dose: 0.25 mg Amlodipine Besylate (Norvasc) 5 mg PO DAILY [facility] Last Admin: 12/12/18 09:31 Dose: 5 mg Aspirin (Aspirin Chewable) 81 mg PO DAILY [facility] Last Admin: 12/12/18 09:30 Dose: 81 mg Belladonna/Phenobarbital () 1 tab PO TID [facility] Last Admin: 12/12/18 09:29 Dose: 1 tab Budesonide (Pulmicort Respules) 0.25 mg INH RQ12 [facility] Last Admin: 12/12/18 08:42 Dose: Not Given Clotrimazole (Mycelex Reilly) 10 mg MT 5XD [facility] Last Admin: 12/12/18 11:49 Dose: 10 mg Emollient Ointment (Vaseline Oint) 5 gm TOP Q4H PRN PRN Reason: DRY LIPS Last Admin: 12/10/18 19:45 Dose: 5 gm Enoxaparin Sodium (Lovenox) 40 mg SC DAILY [facility] Last Admin: 12/11/18 09:07 Dose: 40 mg Famotidine (Pepcid) 20 mg PO 1000 [facility] Last Admin: 12/12/18 09:30 Dose: 20 mg Ferrous Gluconate (Fergon) 324 mg PO DAILY [facility] Last Admin: 12/12/18 09:29 Dose: 324 mg Furosemide (Lasix) 20 mg IVP DAILY [facility] Last Admin: 12/12/18 09:20 Dose: 20 mg Gabapentin (Neurontin) 300 mg PO TID [facility] Last Admin: 12/12/18 11:49 Dose: 300 mg Guaifenesin (Robitussin) 100 mg PO Q4H PRN PRN Reason: Cough Last Admin: 12/11/18 11:43 Dose: 100 mg Vancomycin HCl 1 gm/ Sodium (Chloride) 250 mls @ 166.7 mls/hr IVPB Q12H [facility]; Protocol Last Admin: 12/12/18 12:00 Dose: 166.7 mls/hr Piperacillin Sod/Tazobactam (Sod 3.375 gm/ Sodium Chloride) 100 mls @ 200 mls/hr IVPB Q6H [facility]; Protocol Last Admin: 12/12/18 08:38 Dose: 200 mls/hr Insulin Detemir (Levemir) 25 unit SC Q12 [facility] Last Admin: 12/12/18 11:17 Dose: 25 units Insulin Human Regular (Novolin R) 0 unit SC ACHS [facility]; Protocol Last Admin: 12/12/18 11:48 Dose: 4 units Lactobacillus Acidophilus (Lactobacillus) 1 cap PO BID [facility] Last Admin: 12/12/18 09:28 Dose: 1 cap Methylprednisolone (Solu-Medrol) 30 mg 0.5 mg/kg (30 mg) IV BID [facility] Last Admin: 12/12/18 09:21 Dose: 30 mg Metoprolol Tartrate (Lopressor) 25 mg PO BID [facility] Last Admin: 12/12/18 09:29 Dose: 25 mg Montelukast Sodium (Singulair) 10 mg PO HS [facility] Last Admin: 12/11/18 22:10 Dose: 10 mg Multivitamins (Hexavitamin) 1 tab PO DAILY [facility] Last Admin: 12/12/18 09:31 Dose: 1 tab Oxycodone/Acetaminophen (Percocet 5/325 Mg Tab) 1 tab PO Q4H PRN PRN Reason: Pain, moderate (4-7) Stop: 12/15/18 06:43 - Labs Labs: 12/12/18 08:21 12/12/18 08:21 PT 18.6 SECONDS (9.7-12.2) H 11/30/18 09:35 INR 1.7 11/30/18 09:35 APTT 40 SECONDS (21-34) H 11/30/18 09:35 - Constitutional Appears: Non-toxic, No Acute Distress - Head Exam Head Exam: ATRAUMATIC - Eye Exam Eye Exam: Normal appearance Pupil Exam: NORMAL ACCOMODATION - ENT Exam ENT Exam: Mucous Membranes Moist - Neck Exam Neck Exam: Full ROM - Respiratory Exam Respiratory Exam: Decreased Breath Sounds, Rales - Cardiovascular Exam Cardiovascular Exam: REGULAR RHYTHM - GI/Abdominal Exam GI & Abdominal Exam: Normal Bowel Sounds - Exam Exam: NORMAL INSPECTION - Extremities Exam Extremities Exam: Normal Capillary Refill - Back Exam Back Exam: NORMAL INSPECTION - Neurological Exam Neurological Exam: Alert, Oriented x3 - Psychiatric Exam Psychiatric exam: Normal Mood - Skin Skin Exam: Pallor Assessment and Plan - Assessment and Plan (Free Text) Assessment: severe copd lung infection cancer lung with possible met hiv dnr dni Plan: table will transfer to floor continu med
--- NOTE | 2018-12-12 12:42 | CP.PCM.PN ---
Subjective - Date & Time of Evaluation Date of Evaluation: 12/12/18 Time of Evaluation: 09:00 - Subjective Subjective: remains depressed discussed with Dr Leon IV rx ordered diflucan added events noted Objective - Vital Signs/Intake and Output Vital Signs (last 24 hours): Temp Pulse Resp BP Pulse Ox 98.9 F 82 18 125/71 100 12/12/18 08:00 12/12/18 08:00 12/12/18 08:00 12/12/18 09:29 12/12/18 08:00 Intake and Output: 12/12/18 12/12/18 06:59 18:59 Intake Total 590 Output Total 500 Balance 90 - Medications Medications: Current Medications Acetaminophen (Tylenol 325mg Tab) 650 mg PO Q6 PRN PRN Reason: Pain, moderate (4-7) Last Admin: 12/03/18 12:48 Dose: 650 mg Alprazolam (Xanax) 0.25 mg PO Q8H PRN PRN Reason: Anxiety Stop: 12/15/18 18:01 Last Admin: 12/11/18 06:52 Dose: 0.25 mg Amlodipine Besylate (Norvasc) 5 mg PO DAILY [facility] Last Admin: 12/12/18 09:31 Dose: 5 mg Aspirin (Aspirin Chewable) 81 mg PO DAILY [facility] Last Admin: 12/12/18 09:30 Dose: 81 mg Belladonna/Phenobarbital () 1 tab PO TID [facility] Last Admin: 12/12/18 09:29 Dose: 1 tab Budesonide (Pulmicort Respules) 0.25 mg INH RQ12 [facility] Last Admin: 12/12/18 08:42 Dose: Not Given Clotrimazole (Mycelex Reilly) 10 mg MT 5XD [facility] Last Admin: 12/12/18 11:49 Dose: 10 mg Emollient Ointment (Vaseline Oint) 5 gm TOP Q4H PRN PRN Reason: DRY LIPS Last Admin: 12/10/18 19:45 Dose: 5 gm Enoxaparin Sodium (Lovenox) 40 mg SC DAILY [facility] Last Admin: 12/11/18 09:07 Dose: 40 mg Famotidine (Pepcid) 20 mg PO 1000 [facility] Last Admin: 12/12/18 09:30 Dose: 20 mg Ferrous Gluconate (Fergon) 324 mg PO DAILY [facility] Last Admin: 12/12/18 09:29 Dose: 324 mg Furosemide (Lasix) 20 mg IVP DAILY [facility] Last Admin: 12/12/18 09:20 Dose: 20 mg Gabapentin (Neurontin) 300 mg PO TID [facility] Last Admin: 12/12/18 11:49 Dose: 300 mg Guaifenesin (Robitussin) 100 mg PO Q4H PRN PRN Reason: Cough Last Admin: 12/11/18 11:43 Dose: 100 mg Vancomycin HCl 1 gm/ Sodium (Chloride) 250 mls @ 166.7 mls/hr IVPB Q12H [facility]; Protocol Last Admin: 12/12/18 12:00 Dose: 166.7 mls/hr Piperacillin Sod/Tazobactam (Sod 3.375 gm/ Sodium Chloride) 100 mls @ 200 mls/hr IVPB Q6H [facility]; Protocol Last Admin: 12/12/18 08:38 Dose: 200 mls/hr Fluconazole (Diflucan Iv 200 Mg/100 Ml Ns) 100 mls @ 100 mls/hr IVPB DAILY [facility]; Protocol Insulin Detemir (Levemir) 25 unit SC Q12 [facility] Last Admin: 12/12/18 11:17 Dose: 25 units Insulin Human Regular (Novolin R) 0 unit SC ACHS [facility]; Protocol Last Admin: 12/12/18 11:48 Dose: 4 units Lactobacillus Acidophilus (Lactobacillus) 1 cap PO BID [facility] Last Admin: 12/12/18 09:28 Dose: 1 cap Methylprednisolone (Solu-Medrol) 30 mg 0.5 mg/kg (30 mg) IV BID [facility] Last Admin: 12/12/18 09:21 Dose: 30 mg Metoprolol Tartrate (Lopressor) 25 mg PO BID [facility] Last Admin: 12/12/18 09:29 Dose: 25 mg Montelukast Sodium (Singulair) 10 mg PO HS [facility] Last Admin: 12/11/18 22:10 Dose: 10 mg Multivitamins (Hexavitamin) 1 tab PO DAILY [facility] Last Admin: 12/12/18 09:31 Dose: 1 tab Oxycodone/Acetaminophen (Percocet 5/325 Mg Tab) 1 tab PO Q4H PRN PRN Reason: Pain, moderate (4-7) Stop: 12/15/18 06:43 - Labs Labs: 12/12/18 08:21 12/12/18 08:21 PT 18.6 SECONDS (9.7-12.2) H 11/30/18 09:35 INR 1.7 11/30/18 09:35 APTT 40 SECONDS (21-34) H 11/30/18 09:35 - Constitutional Appears: Non-toxic, Cachectic, Chronically Ill - Head Exam Head Exam: NORMOCEPHALIC - Eye Exam Eye Exam: absent: Scleral icterus - ENT Exam ENT Exam: Mucous Membranes Dry - Neck Exam Neck Exam: absent: Lymphadenopathy - Respiratory Exam Respiratory Exam: Decreased Breath Sounds - Cardiovascular Exam Cardiovascular Exam: REGULAR RHYTHM - GI/Abdominal Exam GI & Abdominal Exam: Distended, Soft - Rectal Exam Rectal Exam: Deferred - Exam Exam: NORMAL INSPECTION - Extremities Exam Extremities Exam: absent: Calf Tenderness - Back Exam Back Exam: absent: CVA tenderness (L), CVA tenderness (R) - Neurological Exam Neurological Exam: Alert, Awake, CN II-XII Intact - Psychiatric Exam Psychiatric exam: Depressed - Skin Skin Exam: Dry Assessment and Plan (1) COPD exacerbation Status: Acute (2) Dyspnea Status: Acute (3) Sepsis Status: Acute (4) ARF (acute renal failure) Status: Acute (5) HIV (human immunodeficiency virus infection) Status: Acute - Assessment and Plan (Free Text) Assessment: IV rx reordered diflucan added DNR in effect supportive care
[2018-12-12] MEDS: Enoxaparin 40 mg Syringe SC SCH (12:47)
[2018-12-12] MEDS ORDERED: Fluconazole IV 200mg/100 ml NS 100 ML IVPB SCH (13:30)
--- NOTE | 2018-12-12 14:07 | CP.PCM.PN ---
Subjective - Date & Time of Evaluation Date of Evaluation: 12/12/18 Time of Evaluation: 12:00 - Subjective Subjective: Has some cough, eating more. Objective - Vital Signs/Intake and Output Vital Signs (last 24 hours): Temp Pulse Resp BP Pulse Ox 98.9 F 94 H 22 142/85 96 12/12/18 12:00 12/12/18 12:00 12/12/18 12:00 12/12/18 12:00 12/12/18 12:00 Intake and Output: 12/12/18 12/12/18 06:59 18:59 Intake Total 590 900 Output Total 500 650 Balance 90 250 - Medications Medications: Current Medications Acetaminophen (Tylenol 325mg Tab) 650 mg PO Q6 PRN PRN Reason: Pain, moderate (4-7) Last Admin: 12/03/18 12:48 Dose: 650 mg Alprazolam (Xanax) 0.25 mg PO Q8H PRN PRN Reason: Anxiety Stop: 12/15/18 18:01 Last Admin: 12/11/18 06:52 Dose: 0.25 mg Amlodipine Besylate (Norvasc) 5 mg PO DAILY [facility] Last Admin: 12/12/18 09:31 Dose: 5 mg Aspirin (Aspirin Chewable) 81 mg PO DAILY [facility] Last Admin: 12/12/18 09:30 Dose: 81 mg Belladonna/Phenobarbital () 1 tab PO TID [facility] Last Admin: 12/12/18 09:29 Dose: 1 tab Budesonide (Pulmicort Respules) 0.25 mg INH RQ12 [facility] Last Admin: 12/12/18 08:42 Dose: Not Given Clotrimazole (Mycelex Reilly) 10 mg MT 5XD [facility] Last Admin: 12/12/18 11:49 Dose: 10 mg Emollient Ointment (Vaseline Oint) 5 gm TOP Q4H PRN PRN Reason: DRY LIPS Last Admin: 12/10/18 19:45 Dose: 5 gm Enoxaparin Sodium (Lovenox) 40 mg SC DAILY [facility] Last Admin: 12/12/18 12:47 Dose: Not Given Famotidine (Pepcid) 20 mg PO 1000 [facility] Last Admin: 12/12/18 09:30 Dose: 20 mg Ferrous Gluconate (Fergon) 324 mg PO DAILY [facility] Last Admin: 12/12/18 09:29 Dose: 324 mg Furosemide (Lasix) 20 mg IVP DAILY [facility] Last Admin: 12/12/18 09:20 Dose: 20 mg Gabapentin (Neurontin) 300 mg PO TID [facility] Last Admin: 12/12/18 11:49 Dose: 300 mg Guaifenesin (Robitussin) 100 mg PO Q4H PRN PRN Reason: Cough Last Admin: 12/11/18 11:43 Dose: 100 mg Vancomycin HCl 1 gm/ Sodium (Chloride) 250 mls @ 166.7 mls/hr IVPB Q12H [facility]; Protocol Last Admin: 12/12/18 12:00 Dose: 166.7 mls/hr Piperacillin Sod/Tazobactam (Sod 3.375 gm/ Sodium Chloride) 100 mls @ 200 mls/hr IVPB Q6H [facility]; Protocol Last Admin: 12/12/18 08:38 Dose: 200 mls/hr Fluconazole (Diflucan Iv 200 Mg/100 Ml Ns) 100 mls @ 100 mls/hr IVPB Q24H [facility]; Protocol Insulin Detemir (Levemir) 25 unit SC Q12 [facility] Last Admin: 12/12/18 11:17 Dose: 25 units Insulin Human Regular (Novolin R) 0 unit SC ACHS [facility]; Protocol Last Admin: 12/12/18 11:48 Dose: 4 units Lactobacillus Acidophilus (Lactobacillus) 1 cap PO BID [facility] Last Admin: 12/12/18 09:28 Dose: 1 cap Methylprednisolone (Solu-Medrol) 30 mg 0.5 mg/kg (30 mg) IV BID [facility] Last Admin: 12/12/18 09:21 Dose: 30 mg Metoprolol Tartrate (Lopressor) 25 mg PO BID [facility] Last Admin: 12/12/18 09:29 Dose: 25 mg Montelukast Sodium (Singulair) 10 mg PO HS [facility] Last Admin: 12/11/18 22:10 Dose: 10 mg Multivitamins (Hexavitamin) 1 tab PO DAILY [facility] Last Admin: 12/12/18 09:31 Dose: 1 tab Oxycodone/Acetaminophen (Percocet 5/325 Mg Tab) 1 tab PO Q4H PRN PRN Reason: Pain, moderate (4-7) Stop: 12/15/18 06:43 - Labs Labs: 12/12/18 08:21 12/12/18 08:21 PT 18.6 SECONDS (9.7-12.2) H 11/30/18 09:35 INR 1.7 11/30/18 09:35 APTT 40 SECONDS (21-34) H 11/30/18 09:35 - Head Exam Head Exam: ATRAUMATIC - Eye Exam Eye Exam: Normal appearance - ENT Exam ENT Exam: Mucous Membranes Dry - Respiratory Exam Respiratory Exam: Decreased Breath Sounds - Cardiovascular Exam Cardiovascular Exam: +S1, +S2 - GI/Abdominal Exam GI & Abdominal Exam: Normal Bowel Sounds Assessment and Plan (1) Leukocytosis Assessment & Plan: on antibiotics, antifungal, and steroids. Status: Acute (2) Anemia Assessment & Plan: HIV and chronic disease will transfuse 1U and give Procrit today Status: Acute (3) Lung cancer Assessment & Plan: stage IV agreeable to outpatient immunotherapy Status: Acute
[2018-12-12] MEDS ORDERED: Epoetin Alfa Dialysis 20000 UNIT/ML Inj SC ONE (14:08)
--- NOTE | 2018-12-12 15:01 | CP.PCM.PN ---
<Luis AKinga curiel - Last Filed: 12/12/18 14:57> Subjective - Date & Time of Evaluation Date of Evaluation: 12/12/18 Time of Evaluation: 14:57 - Subjective Subjective: Pulmonary Progress Note for Dr. Alfaro's service S/E at bedside. Admits to cough Denies all other complaints. Objective - Vital Signs/Intake and Output Vital Signs (last 24 hours): Temp Pulse Resp BP Pulse Ox 98.9 F 94 H 22 142/85 96 12/12/18 12:00 12/12/18 12:00 12/12/18 12:00 12/12/18 12:00 12/12/18 12:00 Intake and Output: 12/12/18 12/12/18 06:59 18:59 Intake Total 590 900 Output Total 500 650 Balance 90 250 - Medications Medications: Current Medications Acetaminophen (Tylenol 325mg Tab) 650 mg PO Q6 PRN PRN Reason: Pain, moderate (4-7) Last Admin: 12/03/18 12:48 Dose: 650 mg Alprazolam (Xanax) 0.25 mg PO Q8H PRN PRN Reason: Anxiety Stop: 12/15/18 18:01 Last Admin: 12/11/18 06:52 Dose: 0.25 mg Amlodipine Besylate (Norvasc) 5 mg PO DAILY [facility] Last Admin: 12/12/18 09:31 Dose: 5 mg Aspirin (Aspirin Chewable) 81 mg PO DAILY [facility] Last Admin: 12/12/18 09:30 Dose: 81 mg Belladonna/Phenobarbital () 1 tab PO TID [facility] Last Admin: 12/12/18 14:26 Dose: 1 tab Budesonide (Pulmicort Respules) 0.25 mg INH RQ12 [facility] Last Admin: 12/12/18 08:42 Dose: Not Given Clotrimazole (Mycelex Reilly) 10 mg MT 5XD [facility] Last Admin: 12/12/18 14:33 Dose: Not Given Emollient Ointment (Vaseline Oint) 5 gm TOP Q4H PRN PRN Reason: DRY LIPS Last Admin: 12/10/18 19:45 Dose: 5 gm Enoxaparin Sodium (Lovenox) 40 mg SC DAILY [facility] Last Admin: 12/12/18 12:47 Dose: Not Given Epoetin Yunier (Procrit) 20,000 unit SC ONCE [facility] Stop: 12/12/18 16:01 Famotidine (Pepcid) 20 mg PO 1000 [facility] Last Admin: 12/12/18 09:30 Dose: 20 mg Ferrous Gluconate (Fergon) 324 mg PO DAILY [facility] Last Admin: 12/12/18 09:29 Dose: 324 mg Furosemide (Lasix) 20 mg IVP DAILY [facility] Last Admin: 12/12/18 09:20 Dose: 20 mg Gabapentin (Neurontin) 300 mg PO TID [facility] Last Admin: 12/12/18 14:35 Dose: 300 mg Guaifenesin (Robitussin) 100 mg PO Q4H PRN PRN Reason: Cough Last Admin: 12/11/18 11:43 Dose: 100 mg Vancomycin HCl 1 gm/ Sodium (Chloride) 250 mls @ 166.7 mls/hr IVPB Q12H [facility]; Protocol Last Admin: 12/12/18 12:00 Dose: 166.7 mls/hr Piperacillin Sod/Tazobactam (Sod 3.375 gm/ Sodium Chloride) 100 mls @ 200 mls/hr IVPB Q6H [facility]; Protocol Last Admin: 12/12/18 08:38 Dose: 200 mls/hr Fluconazole (Diflucan Iv 200 Mg/100 Ml Ns) 100 mls @ 100 mls/hr IVPB Q24H [facility]; Protocol Insulin Detemir (Levemir) 25 unit SC Q12 [facility] Last Admin: 12/12/18 11:17 Dose: 25 units Insulin Human Regular (Novolin R) 0 unit SC ACHS [facility]; Protocol Last Admin: 12/12/18 11:48 Dose: 4 units Lactobacillus Acidophilus (Lactobacillus) 1 cap PO BID [facility] Last Admin: 12/12/18 09:28 Dose: 1 cap Methylprednisolone (Solu-Medrol) 30 mg 0.5 mg/kg (30 mg) IV BID [facility] Last Admin: 12/12/18 09:21 Dose: 30 mg Metoprolol Tartrate (Lopressor) 25 mg PO BID [facility] Last Admin: 12/12/18 09:29 Dose: 25 mg Montelukast Sodium (Singulair) 10 mg PO HS [facility] Last Admin: 12/11/18 22:10 Dose: 10 mg Multivitamins (Hexavitamin) 1 tab PO DAILY [facility] Last Admin: 12/12/18 09:31 Dose: 1 tab Oxycodone/Acetaminophen (Percocet 5/325 Mg Tab) 1 tab PO Q4H PRN PRN Reason: Pain, moderate (4-7) Stop: 12/15/18 06:43 - Labs Labs: 12/12/18 08:21 12/12/18 08:21 PT 18.6 SECONDS (9.7-12.2) H 11/30/18 09:35 INR 1.7 11/30/18 09:35 APTT 40 SECONDS (21-34) H 11/30/18 09:35 - Constitutional Appears: Non-toxic, No Acute Distress - Head Exam Head Exam: NORMAL INSPECTION - Eye Exam Eye Exam: EOMI, Normal appearance - ENT Exam ENT Exam: Mucous Membranes Dry - Respiratory Exam Respiratory Exam: Decreased Breath Sounds, NORMAL BREATHING PATTERN. absent: Respiratory Distress - Cardiovascular Exam Cardiovascular Exam: REGULAR RHYTHM, +S1, +S2 - GI/Abdominal Exam GI & Abdominal Exam: Soft, Normal Bowel Sounds - Neurological Exam Neurological Exam: Awake, Oriented x3 Assessment and Plan - Assessment and Plan (Free Text) Assessment: 63 yo male w/ PMH of COPD exacerbation, lung cancer, HIV, HTN, DM, Hepatitis C, chronic Pancreatitis admitted for worsening sob. Pulm consulted for COPD exacerbation and lung cancer history. Patient DNR/DNi Plan: A: COPD exacerbation Hx of lung cancer Leukocytosis P: Continue Pulmicort, Singulair and IV steroids for COPD IV abx and antifungal as patient has fever recently; further management as per ID/primary Steroids may increase WBC Continue Robitussin Poor prognosis <Wilbur Alfaro S - Last Filed: 12/12/18 17:52> Objective - Vital Signs/Intake and Output Vital Signs (last 24 hours): Temp Pulse Resp BP Pulse Ox 98.3 F 90 22 101/65 99 12/12/18 16:00 12/12/18 17:07 12/12/18 16:00 12/12/18 16:00 12/12/18 16:00 Intake and Output: 12/12/18 12/12/18 06:59 18:59 Intake Total 590 900 Output Total 500 650 Balance 90 250 - Medications Medications: Current Medications Acetaminophen (Tylenol 325mg Tab) 650 mg PO Q6 PRN PRN Reason: Pain, moderate (4-7) Last Admin: 12/03/18 12:48 Dose: 650 mg Alprazolam (Xanax) 0.25 mg PO Q8H PRN PRN Reason: Anxiety Stop: 12/15/18 18:01 Last Admin: 12/11/18 06:52 Dose: 0.25 mg Amlodipine Besylate (Norvasc) 5 mg PO DAILY [facility] Last Admin: 12/12/18 09:31 Dose: 5 mg Aspirin (Aspirin Chewable) 81 mg PO DAILY [facility] Last Admin: 12/12/18 09:30 Dose: 81 mg Belladonna/Phenobarbital () 1 tab PO TID [facility] Last Admin: 12/12/18 14:26 Dose: 1 tab Budesonide (Pulmicort Respules) 0.25 mg INH RQ12 [facility] Last Admin: 12/12/18 08:42 Dose: Not Given Clotrimazole (Mycelex Reilly) 10 mg MT 5XD [facility] Last Admin: 12/12/18 14:33 Dose: Not Given Emollient Ointment (Vaseline Oint) 5 gm TOP Q4H PRN PRN Reason: DRY LIPS Last Admin: 12/10/18 19:45 Dose: 5 gm Enoxaparin Sodium (Lovenox) 40 mg SC DAILY [facility] Last Admin: 12/12/18 12:47 Dose: Not Given Famotidine (Pepcid) 20 mg PO 1000 [facility] Last Admin: 12/12/18 09:30 Dose: 20 mg Ferrous Gluconate (Fergon) 324 mg PO DAILY [facility] Last Admin: 12/12/18 09:29 Dose: 324 mg Furosemide (Lasix) 20 mg IVP DAILY [facility] Last Admin: 12/12/18 09:20 Dose: 20 mg Gabapentin (Neurontin) 300 mg PO TID [facility] Last Admin: 12/12/18 14:35 Dose: 300 mg Guaifenesin (Robitussin) 100 mg PO Q4H PRN PRN Reason: Cough Last Admin: 12/11/18 11:43 Dose: 100 mg Vancomycin HCl 1 gm/ Sodium (Chloride) 250 mls @ 166.7 mls/hr IVPB Q12H [facility]; Protocol Last Admin: 12/12/18 12:00 Dose: 166.7 mls/hr Piperacillin Sod/Tazobactam (Sod 3.375 gm/ Sodium Chloride) 100 mls @ 200 mls/h r IVPB Q6H [facility]; Protocol Last Admin: 12/12/18 17:24 Dose: 200 mls/hr Fluconazole (Diflucan Iv 200 Mg/100 Ml Ns) 100 mls @ 100 mls/hr IVPB Q24H [facility]; Protocol Insulin Detemir (Levemir) 25 unit SC Q12 [facility] Last Admin: 12/12/18 11:17 Dose: 25 units Insulin Human Regular (Novolin R) 0 unit SC ACHS [facility]; Protocol Last Admin: 12/12/18 11:48 Dose: 4 units Lactobacillus Acidophilus (Lactobacillus) 1 cap PO BID [facility] Last Admin: 12/12/18 09:28 Dose: 1 cap Methylprednisolone (Solu-Medrol) 30 mg 0.5 mg/kg (30 mg) IV BID [facility] Last Admin: 12/12/18 09:21 Dose: 30 mg Metoprolol Tartrate (Lopressor) 25 mg PO BID [facility] Last Admin: 12/12/18 09:29 Dose: 25 mg Montelukast Sodium (Singulair) 10 mg PO HS [facility] Last Admin: 12/11/18 22:10 Dose: 10 mg Multivitamins (Hexavitamin) 1 tab PO DAILY [facility] Last Admin: 12/12/18 09:31 Dose: 1 tab Oxycodone/Acetaminophen (Percocet 5/325 Mg Tab) 1 tab PO Q4H PRN PRN Reason: Pain, moderate (4-7) Stop: 12/15/18 06:43 - Labs Labs: 12/12/18 08:21 12/12/18 08:21 PT 18.6 SECONDS (9.7-12.2) H 11/30/18 09:35 INR 1.7 11/30/18 09:35 APTT 40 SECONDS (21-34) H 11/30/18 09:35 Assessment and Plan (1) COPD exacerbation Status: Acute (2) HIV (human immunodeficiency virus infection) Status: Acute (3) Lung mass Status: Acute Attending/Attestation - Attestation I have personally seen and examined this patient.: Yes I have fully participated in the care of the patient.: Yes I have reviewed all pertinent clinical information, including history, physical exam and plan: Yes Notes (Text): 12/12/18 17:51 Patient seen and examined Patient DNR/DNI Assessment and plan as per resident note BiPAP as needed Continue nebulizer treatment
[2018-12-12] MEDS ORDERED: Epoetin Alfa 20000 UNIT/ML Inj SC ONE (16:00)
[2018-12-12] MEDS: Fluconazole IV 200mg/100 ml NS 100 ML IVPB SCH (17:04)
[2018-12-13] MEDS: Piperacillin/Tazobact 3.375 GM in Sodium Chloride 100 ML IVPB SCH ×2 (02:34→08:38)
[2018-12-13] MEDS: Oxycodone/Acetaminophen 5/325 mg Tab PO PRN ×3 (04:19→21:49)
[2018-12-13] MEDS: guaiFENesin 100 mg/5 ml Syrup UD PO PRN ×2 (04:19→08:50)
[2018-12-13] MEDS: Budesonide 0.25 mg/2 ml Inhal Susp UD INH SCH ×2 (08:35→19:25)
[2018-12-13] MEDS: (Novolin R) Insulin Human Regular 100 units/ml vial SC SCH ×4 (08:39→22:03)
[2018-12-13] MEDS: LIPASE/PROTEASE/AMYLASE 4,200 U ECC PO SCH ×3 (08:51→16:35)
[2018-12-13] MEDS: Multiple Vitamins Tab PO SCH (09:28)
[2018-12-13] MEDS: Lactobacillus Acidophilus 500 MU Cap PO SCH ×2 (09:28→17:13)
[2018-12-13] MEDS: Belladonna-Phenobarbital PO SCH ×3 (09:29→17:12)
[2018-12-13] MEDS: MethylPREDNISolone 40 mg Vial IV SCH ×2 (09:29→17:13)
[2018-12-13] MEDS: Enoxaparin 40 mg Syringe SC SCH (09:30)
[2018-12-13] MEDS: Insulin Detemir 100 units/ml Vial (Levemir) SC SCH ×2 (09:31→21:49)
--- NOTE | 2018-12-13 10:14 | CP.PCM.PN ---
Subjective - Date & Time of Evaluation Date of Evaluation: 12/13/18 Time of Evaluation: 10:13 - Subjective Subjective: Pulm Consult note for Dr. Alfaro Patient seen and examined at bedside. Patient was sitting comfortably eating breakfast. Patient admits to cough but denies any other complaints. He remains afebrile. States he spoke with Dr. Leon and is expecting outpatient therapy for his cancer. ROS: as stated in HPI otherwise negative Objective - Vital Signs/Intake and Output Vital Signs (last 24 hours): Temp Pulse Resp BP Pulse Ox 98.1 F 87 20 122/77 96 12/13/18 07:30 12/13/18 07:30 12/13/18 07:30 12/13/18 09:30 12/13/18 07:30 Intake and Output: 12/13/18 12/13/18 06:59 18:59 Intake Total 325 Balance 325 - Medications Medications: Current Medications Acetaminophen (Tylenol 325mg Tab) 650 mg PO Q6 PRN PRN Reason: Pain, moderate (4-7) Last Admin: 12/03/18 12:48 Dose: 650 mg Alprazolam (Xanax) 0.25 mg PO Q8H PRN PRN Reason: Anxiety Stop: 12/15/18 18:01 Last Admin: 12/12/18 19:51 Dose: 0.25 mg Amlodipine Besylate (Norvasc) 5 mg PO DAILY [facility] Last Admin: 12/13/18 09:30 Dose: 5 mg Aspirin (Aspirin Chewable) 81 mg PO DAILY [facility] Last Admin: 12/13/18 09:28 Dose: 81 mg Belladonna/Phenobarbital () 1 tab PO TID [facility] Last Admin: 12/13/18 09:29 Dose: 1 tab Budesonide (Pulmicort Respules) 0.25 mg INH RQ12 [facility] Last Admin: 12/13/18 08:35 Dose: Not Given Clotrimazole (Mycelex Reilly) 10 mg MT 5XD [facility] Last Admin: 12/13/18 08:51 Dose: 10 mg Emollient Ointment (Vaseline Oint) 5 gm TOP Q4H PRN PRN Reason: DRY LIPS Last Admin: 12/10/18 19:45 Dose: 5 gm Enoxaparin Sodium (Lovenox) 40 mg SC DAILY [facility] Last Admin: 12/13/18 09:30 Dose: 40 mg Famotidine (Pepcid) 20 mg PO 1000 [facility] Last Admin: 12/13/18 09:28 Dose: 20 mg Ferrous Gluconate (Fergon) 324 mg PO DAILY [facility] Last Admin: 12/13/18 09:30 Dose: 324 mg Furosemide (Lasix) 20 mg IVP DAILY [facility] Last Admin: 12/13/18 09:30 Dose: 20 mg Gabapentin (Neurontin) 300 mg PO TID [facility] Last Admin: 12/13/18 09:28 Dose: 300 mg Guaifenesin (Robitussin) 100 mg PO Q4H PRN PRN Reason: Cough Last Admin: 12/13/18 08:50 Dose: 100 mg Fluconazole (Diflucan Iv 200 Mg/100 Ml Ns) 100 mls @ 100 mls/hr IVPB Q24H [facility]; Protocol Last Admin: 12/12/18 17:04 Dose: Not Given Insulin Detemir (Levemir) 25 unit SC Q12 [facility] Last Admin: 12/13/18 09:31 Dose: 25 units Insulin Human Regular (Novolin R) 0 unit SC ACHS [facility]; Protocol Last Admin: 12/13/18 08:39 Dose: 6 units Lactobacillus Acidophilus (Lactobacillus) 1 cap PO BID [facility] Last Admin: 12/13/18 09:28 Dose: 1 cap Methylprednisolone (Solu-Medrol) 30 mg 0.5 mg/kg (30 mg) IV BID [facility] Last Admin: 12/13/18 09:29 Dose: 30 mg Metoprolol Tartrate (Lopressor) 25 mg PO BID [facility] Last Admin: 12/13/18 09:30 Dose: 25 mg Montelukast Sodium (Singulair) 10 mg PO HS [facility] Last Admin: 12/12/18 22:56 Dose: 10 mg Multivitamins (Hexavitamin) 1 tab PO DAILY [facility] Last Admin: 12/13/18 09:28 Dose: 1 tab Oxycodone/Acetaminophen (Percocet 5/325 Mg Tab) 1 tab PO Q4H PRN PRN Reason: Pain, moderate (4-7) Stop: 12/15/18 06:43 Last Admin: 12/13/18 04:19 Dose: 1 tab - Labs Labs: 12/12/18 08:21 12/12/18 08:21 PT 18.6 SECONDS (9.7-12.2) H 11/30/18 09:35 INR 1.7 11/30/18 09:35 APTT 40 SECONDS (21-34) H 11/30/18 09:35 - Constitutional Appears: Unkempt, Cachectic - Head Exam Head Exam: ATRAUMATIC, NORMOCEPHALIC - Eye Exam Eye Exam: EOMI, Normal appearance - ENT Exam ENT Exam: Mucous Membranes Moist - Neck Exam Neck Exam: Normal Inspection. absent: Lymphadenopathy - Respiratory Exam Respiratory Exam: Decreased Breath Sounds, NORMAL BREATHING PATTERN. absent: Chest Wall Tenderness - Cardiovascular Exam Cardiovascular Exam: REGULAR RHYTHM, +S1, +S2 - GI/Abdominal Exam GI & Abdominal Exam: Soft, Normal Bowel Sounds - Psychiatric Exam Psychiatric exam: Anxious Assessment and Plan - Assessment and Plan (Free Text) Assessment: 63 year old male with PMH of COPD exacerbations, lung cancer, HIV, HTN, DM, Hep C, Chronic Pancreatitis, admitted for worsening shortness of breath. Patient DNR/DNI Plan: A: COPD exacerbation Hx of lung cancer leukocytosis P: Continue pulmicort, singulair, IV steriods for COPD BiPAP as needed IV abx and antifungal as patient had a fever recently, further infectious management per ID/primary team Steriods may increase WBC Continue Robitussin Poor prognosis
[2018-12-13 10:39] LABS: % CD4 (T HELPER CELL) 28 Percent (30-61); % CD8 (SUPPRESSOR T CELL) 31 Percent (12-42); ABSOLUTE CD4 CELLS 142 Cells/mcL (490-1740); ABSOLUTE CD8 CELLS 160 Cells/mcL (180-1170); ABSOLUTE LYMPHOCYTES 517 Cells/mcL (850-3900); HELPER/SUPPRESSOR RATIO 0.89 Ratio (0.86-5.00)
[2018-12-13] MEDS: Petrolatum Oint Foilpak (5 gm) TOP PRN ×2 (12:23→16:35)
--- NOTE | 2018-12-13 14:50 | PN ---
DATE: 12/13/2018 LOCATION: 672, bed A. SUBJECTIVE: This is a 63-year-old male, seen and examined in rounds in a status of DNR/DNI without significant clinical changes or reported active bleeding, for blood transfusion as per yesterday. The entire chart is reviewed including but not limited to most recent lab and radiology study results, current and the previous medication list and today's lab results showed blood glucose level of 299. Rest of the lab results still pending; however, the patient continued to have low albumin, the total protein was elevated, alkaline phosphatase, low calcium, low phosphorus with increased BUN but decreased creatinine. PHYSICAL EXAMINATION: GENERAL: A 63-year-old male. VITAL SIGNS: Afebrile with pulse of 84, respiratory rate 20 to 22, blood pressure of 118/72. HEENT: Showed pale, dry oral mucous membrane. Nonicteric sclerae. LUNGS: Few scattered crepitation. Decreased air entry at bases. HEART: Positive S1 and S2. ABDOMEN: Soft. Mild distention with mild generalized tenderness. No mass or organomegaly. No rebound tenderness or guarding. EXTREMITIES: With lower extremity mild edematous changes, no clubbing or cyanosis. NEUROLOGIC: No reported new neurological deficits, sensory or motor. IMPRESSION: 1. Re-exacerbation of peptic ulcer disease. 2. Reported lung carcinoma. 3. Known history of human immunodeficiency virus. 4. Anemia, most likely secondary to above. 5. Known history of chronic obstructive pulmonary disease, bronchitis, pneumonia. SUGGESTIONS: 1. Continue current management. 2. Peripheral hyperalimentation. 3. Blood transfusion as needed, keep hemoglobin around 10 g percent. 4. Further recommendation to follow. Sarai Reynolds MD
[2018-12-13] MEDS: Fluconazole IV 200mg/100 ml NS 100 ML IVPB SCH (17:13)
[2018-12-14] MEDS: Oxycodone/Acetaminophen 5/325 mg Tab PO PRN ×3 (04:55→21:57)
[2018-12-14] MEDS: guaiFENesin 100 mg/5 ml Syrup UD PO PRN (04:57)
[2018-12-14] MEDS: Petrolatum Oint Foilpak (5 gm) TOP PRN ×2 (05:16→17:40)
[2018-12-14] MEDS: Budesonide 0.25 mg/2 ml Inhal Susp UD INH SCH ×2 (07:10→20:01)
[2018-12-14] MEDS: (Novolin R) Insulin Human Regular 100 units/ml vial SC SCH ×4 (08:20→21:40)
[2018-12-14] MEDS: Multiple Vitamins Tab PO SCH (09:31)
[2018-12-14] MEDS: Belladonna-Phenobarbital PO SCH ×3 (09:33→17:39)
[2018-12-14] MEDS: Lactobacillus Acidophilus 500 MU Cap PO SCH ×2 (09:33→17:39)
[2018-12-14] MEDS: Enoxaparin 40 mg Syringe SC SCH (09:33)
[2018-12-14] MEDS: MethylPREDNISolone 40 mg Vial IV SCH ×2 (09:35→17:37)
[2018-12-14] MEDS: Insulin Detemir 100 units/ml Vial (Levemir) SC SCH ×2 (09:36→21:57)
[2018-12-14] MEDS: LIPASE/PROTEASE/AMYLASE 4,200 U ECC PO SCH ×3 (09:37→17:39)
[2018-12-14 12:02] LABS: HEMOGLOBIN 8.4 g/dL (12.0-18.0); LYMPH # 0.4 K/uL (1.0-4.3); LYMPH % 1.7 % (20.0-40.0); MEAN CELL VOLUME 83.3 fL (80.0-94.0); MEAN CORPUSCULAR HEMOGLOBIN 26.5 pg (27.0-31.0); MEAN CORPUSCULAR HGB CONC 31.8 g/dL (33.0-37.0); MONO % 4.3 % (0.0-10.0); NEUT # 22.5 K/uL (1.8-7.0); NRBC % 0.1 % (0.0-2.0); PLATELET COUNT 375 K/uL (130-400); RBC 3.18 Mil/uL (4.40-5.90); RED CELL DISTRIBUTION WIDTH 15.7 % (11.5-14.5); WHITE BLOOD COUNT 23.9 K/uL (4.8-10.8)
[2018-12-14 12:12] LABS: BLOOD UREA NITROGEN 24 mg/dL (9-20); CALCIUM 8.8 mg/dl (8.6-10.4); GFR NON-AFRICAN AMERICAN > 60
[2018-12-14 12:27] LABS: ANISOCYTOSIS SLIGHT; HYPOCHROMIC SLIGHT; LYMPHOCYTE 2 % (20-40); MONOCYTE 3 % (0-10); NEUTROPHIL 95 % (50-75); PLATELET ESTIMATE NORMAL (NORMAL); TOTAL CELLS COUNTED 100
--- NOTE | 2018-12-14 12:50 | CP.PCM.PN ---
<Kinga Gunn - Last Filed: 12/14/18 14:23> Subjective - Date & Time of Evaluation Date of Evaluation: 12/14/18 Time of Evaluation: 12:49 - Subjective Subjective: Pulm Progress Note for Dr. Alfaro's service Patient seen and examined at bedside. He states he remains slightly short of breath with productive cough but otherwise feels okay. Does not use bipap as requested at times. Admits to weakness. States he noticed his stool today looked far darker than usual. Patient downgraded from ICU to 6th floor yesterday. Patient admits to cough but denies any other complaints. Hemoglobin down trending ROS: as listed in HPI otherwise reviewed and negative Objective - Vital Signs/Intake and Output Vital Signs (last 24 hours): Temp Pulse Resp BP Pulse Ox 98.1 F 134 H 18 120/67 100 12/14/18 07:30 12/14/18 07:30 12/14/18 07:30 12/14/18 09:36 12/14/18 07:30 Intake and Output: 12/14/18 12/14/18 06:59 18:59 Intake Total 340 Balance 340 - Medications Medications: Current Medications Acetaminophen (Tylenol 325mg Tab) 650 mg PO Q6 PRN PRN Reason: Pain, moderate (4-7) Last Admin: 12/03/18 12:48 Dose: 650 mg Alprazolam (Xanax) 0.25 mg PO Q8H PRN PRN Reason: Anxiety Stop: 12/15/18 18:01 Last Admin: 12/12/18 19:51 Dose: 0.25 mg Amlodipine Besylate (Norvasc) 5 mg PO DAILY [facility] Last Admin: 12/14/18 09:31 Dose: 5 mg Aspirin (Aspirin Chewable) 81 mg PO DAILY [facility] Last Admin: 12/14/18 09:34 Dose: 81 mg Belladonna/Phenobarbital () 1 tab PO TID [facility] Last Admin: 12/14/18 09:33 Dose: 1 tab Budesonide (Pulmicort Respules) 0.25 mg INH RQ12 [facility] Last Admin: 12/14/18 07:10 Dose: 0.25 mg Clotrimazole (Mycelex Reilly) 10 mg MT 5XD [facility] Last Admin: 12/13/18 20:49 Dose: 10 mg Emollient Ointment (Vaseline Oint) 5 gm TOP Q4H PRN PRN Reason: DRY LIPS Last Admin: 12/14/18 05:16 Dose: 5 gm Famotidine (Pepcid) 20 mg PO 1000 [facility] Last Admin: 12/14/18 09:31 Dose: 20 mg Ferrous Gluconate (Fergon) 324 mg PO DAILY [facility] Last Admin: 12/14/18 09:34 Dose: 324 mg Furosemide (Lasix) 20 mg IVP DAILY [facility] Last Admin: 12/14/18 09:35 Dose: 20 mg Gabapentin (Neurontin) 300 mg PO TID [facility] Last Admin: 12/14/18 09:33 Dose: 300 mg Guaifenesin (Robitussin) 100 mg PO Q4H PRN PRN Reason: Cough Last Admin: 12/14/18 04:57 Dose: 100 mg Fluconazole (Diflucan Iv 200 Mg/100 Ml Ns) 100 mls @ 100 mls/hr IVPB Q24H [facility]; Protocol Last Admin: 12/13/18 17:13 Dose: 100 mls/hr Insulin Detemir (Levemir) 25 unit SC Q12 [facility] Last Admin: 12/14/18 09:36 Dose: 25 units Insulin Human Regular (Novolin R) 0 unit SC ACHS [facility]; Protocol Last Admin: 12/14/18 08:20 Dose: 3 units Lactobacillus Acidophilus (Lactobacillus) 1 cap PO BID [facility] Last Admin: 12/14/18 09:33 Dose: 1 cap Methylprednisolone (Solu-Medrol) 30 mg 0.5 mg/kg (30 mg) IV BID [facility] Last Admin: 12/14/18 09:35 Dose: 30 mg Metoprolol Tartrate (Lopressor) 25 mg PO BID [facility] Last Admin: 12/14/18 09:36 Dose: 25 mg Montelukast Sodium (Singulair) 10 mg PO HS [facility] Last Admin: 12/13/18 21:49 Dose: 10 mg Multivitamins (Hexavitamin) 1 tab PO DAILY [facility] Last Admin: 12/14/18 09:31 Dose: 1 tab Oxycodone/Acetaminophen (Percocet 5/325 Mg Tab) 1 tab PO Q4H PRN PRN Reason: Pain, moderate (4-7) Stop: 12/15/18 06:43 Last Admin: 12/13/18 21:49 Dose: 1 tab - Labs Labs: 12/14/18 11:45 12/14/18 11:45 PT 18.6 SECONDS (9.7-12.2) H 11/30/18 09:35 INR 1.7 11/30/18 09:35 APTT 40 SECONDS (21-34) H 11/30/18 09:35 - Constitutional Appears: Non-toxic, Chronically Ill - Head Exam Head Exam: ATRAUMATIC, NORMOCEPHALIC - Eye Exam Eye Exam: EOMI, Normal appearance - ENT Exam ENT Exam: Mucous Membranes Moist - Respiratory Exam Respiratory Exam: Wheezes, NORMAL BREATHING PATTERN - Cardiovascular Exam Cardiovascular Exam: REGULAR RHYTHM, +S1, +S2. absent: JVD - GI/Abdominal Exam GI & Abdominal Exam: Soft, Normal Bowel Sounds. absent: Distended, Firm - Extremities Exam Extremities Exam: absent: Pedal Edema - Skin Skin Exam: Pallor Assessment and Plan - Assessment and Plan (Free Text) Assessment: 63 year old male with PMH of COPD exacerbations, lung cancer, HIV, HTN, DM, Hep C, Chronic Pancreatitis, admitted for worsening shortness of breath. Patient DNR/DNI Plan: A: COPD exacerbation Hx of lung cancer Anemia leukocytosis P: Continue pulmicort, singulair, IV steriods for COPD BiPAP as needed IV abx and antifungal as patient had a fever recently, further infectious management per ID/primary team Steriods may increase WBC Continue Robitussin hemoglobin at 7.1 (down from 9.4 on 12/07) Transfusing 2 units of pRBCs Recommend CSPY inpatient as patient has not had a CSPY in chart review (due to melenotic stools) Poor prognosis <Wilbur Alfaro S - Last Filed: 12/14/18 17:57> Objective - Vital Signs/Intake and Output Vital Signs (last 24 hours): Temp Pulse Resp BP Pulse Ox 98.1 F 100 H 20 142/90 100 12/14/18 15:00 12/14/18 15:00 12/14/18 15:00 12/14/18 17:39 12/14/18 15:00 Intake and Output: 12/14/18 12/14/18 06:59 18:59 Intake Total 340 Balance 340 - Medications Medications: Current Medications Acetaminophen (Tylenol 325mg Tab) 650 mg PO Q6 PRN PRN Reason: Pain, moderate (4-7) Last Admin: 12/03/18 12:48 Dose: 650 mg Albuterol/Ipratropium (Duoneb 3 Mg/0.5 Mg (3 Ml) Ud) 3 ml INH RQ4 [facility] Alprazolam (Xanax) 0.25 mg PO Q8H PRN PRN Reason: Anxiety Stop: 12/15/18 18:01 Last Admin: 12/12/18 19:51 Dose: 0.25 mg Amlodipine Besylate (Norvasc) 5 mg PO DAILY [facility] Last Admin: 12/14/18 09:31 Dose: 5 mg Aspirin (Aspirin Chewable) 81 mg PO DAILY [facility] Last Admin: 12/14/18 09:34 Dose: 81 mg Belladonna/Phenobarbital () 1 tab PO TID [facility] Last Admin: 12/14/18 17:39 Dose: 1 tab Budesonide (Pulmicort Respules) 0.25 mg INH RQ12 [facility] Last Admin: 12/14/18 07:10 Dose: 0.25 mg Clotrimazole (Mycelex Reilly) 10 mg MT 5XD [facility] Last Admin: 12/14/18 17:39 Dose: 10 mg Emollient Ointment (Vaseline Oint) 5 gm TOP Q4H PRN PRN Reason: DRY LIPS Last Admin: 12/14/18 17:40 Dose: 5 gm Famotidine (Pepcid) 20 mg PO 1000 [facility] Last Admin: 12/14/18 09:31 Dose: 20 mg Ferrous Gluconate (Fergon) 324 mg PO DAILY [facility] Last Admin: 12/14/18 09:34 Dose: 324 mg Furosemide (Lasix) 20 mg IVP DAILY [facility] Last Admin: 12/14/18 09:35 Dose: 20 mg Gabapentin (Neurontin) 300 mg PO TID [facility] Last Admin: 12/14/18 17:39 Dose: 300 mg Guaifenesin (Robitussin) 100 mg PO Q4H PRN PRN Reason: Cough Last Admin: 12/14/18 04:57 Dose: 100 mg Fluconazole (Diflucan Iv 200 Mg/100 Ml Ns) 100 mls @ 100 mls/hr IVPB Q24H [facility]; Protocol Last Admin: 12/14/18 17:38 Dose: 100 mls/hr Insulin Detemir (Levemir) 25 unit SC Q12 [facility] Last Admin: 12/14/18 09:36 Dose: 25 units Insulin Human Regular (Novolin R) 0 unit SC ACHS [facility]; Protocol Last Admin: 12/14/18 17:22 Dose: Not Given Lactobacillus Acidophilus (Lactobacillus) 1 cap PO BID [facility] Last Admin: 12/14/18 17:39 Dose: 1 cap Methylprednisolone (Solu-Medrol) 30 mg 0.5 mg/kg (30 mg) IV BID [facility] Last Admin: 12/14/18 17:37 Dose: 30 mg Metoprolol Tartrate (Lopressor) 25 mg PO BID [facility] Last Admin: 12/14/18 17:39 Dose: 25 mg Montelukast Sodium (Singulair) 10 mg PO HS [facility] Last Admin: 12/13/18 21:49 Dose: 10 mg Multivitamins (Hexavitamin) 1 tab PO DAILY [facility] Last Admin: 12/14/18 09:31 Dose: 1 tab Oxycodone/Acetaminophen (Percocet 5/325 Mg Tab) 1 tab PO Q4H PRN PRN Reason: Pain, moderate (4-7) Stop: 12/15/18 06:43 Last Admin: 12/14/18 17:38 Dose: 1 tab - Labs Labs: 12/14/18 11:45 12/14/18 11:45 PT 18.6 SECONDS (9.7-12.2) H 11/30/18 09:35 INR 1.7 11/30/18 09:35 APTT 40 SECONDS (21-34) H 11/30/18 09:35 Assessment and Plan (1) COPD exacerbation Status: Acute (2) HIV (human immunodeficiency virus infection) Status: Acute (3) Lung mass Status: Acute Attending/Attestation - Attestation I have personally seen and examined this patient.: Yes I have fully participated in the care of the patient.: Yes I have reviewed all pertinent clinical information, including history, physical exam and plan: Yes
[2018-12-14] MEDS: Albuterol-Ipratrop 3 mg / 0.5 (3 ml) UD INH SCH ×2 (17:15→20:00)
--- NOTE | 2018-12-14 17:15 | CP.PCM.PN ---
Subjective - Date & Time of Evaluation Date of Evaluation: 12/14/18 Time of Evaluation: 17:12 - Subjective Subjective: pt still coughing sob weeke Objective - Vital Signs/Intake and Output Vital Signs (last 24 hours): Temp Pulse Resp BP Pulse Ox 98.1 F 100 H 20 142/90 100 12/14/18 15:00 12/14/18 15:00 12/14/18 15:00 12/14/18 15:00 12/14/18 15:00 Intake and Output: 12/14/18 12/14/18 06:59 18:59 Intake Total 340 Balance 340 - Medications Medications: Current Medications Acetaminophen (Tylenol 325mg Tab) 650 mg PO Q6 PRN PRN Reason: Pain, moderate (4-7) Last Admin: 12/03/18 12:48 Dose: 650 mg Albuterol/Ipratropium (Duoneb 3 Mg/0.5 Mg (3 Ml) Ud) 3 ml INH RQ4 [facility] Alprazolam (Xanax) 0.25 mg PO Q8H PRN PRN Reason: Anxiety Stop: 12/15/18 18:01 Last Admin: 12/12/18 19:51 Dose: 0.25 mg Amlodipine Besylate (Norvasc) 5 mg PO DAILY [facility] Last Admin: 12/14/18 09:31 Dose: 5 mg Aspirin (Aspirin Chewable) 81 mg PO DAILY [facility] Last Admin: 12/14/18 09:34 Dose: 81 mg Belladonna/Phenobarbital () 1 tab PO TID [facility] Last Admin: 12/14/18 15:06 Dose: 1 tab Budesonide (Pulmicort Respules) 0.25 mg INH RQ12 [facility] Last Admin: 12/14/18 07:10 Dose: 0.25 mg Clotrimazole (Mycelex Reilly) 10 mg MT 5XD [facility] Last Admin: 12/14/18 15:10 Dose: 10 mg Emollient Ointment (Vaseline Oint) 5 gm TOP Q4H PRN PRN Reason: DRY LIPS Last Admin: 12/14/18 05:16 Dose: 5 gm Famotidine (Pepcid) 20 mg PO 1000 [facility] Last Admin: 12/14/18 09:31 Dose: 20 mg Ferrous Gluconate (Fergon) 324 mg PO DAILY [facility] Last Admin: 12/14/18 09:34 Dose: 324 mg Furosemide (Lasix) 20 mg IVP DAILY [facility] Last Admin: 12/14/18 09:35 Dose: 20 mg Gabapentin (Neurontin) 300 mg PO TID [facility] Last Admin: 12/14/18 15:07 Dose: 300 mg Guaifenesin (Robitussin) 100 mg PO Q4H PRN PRN Reason: Cough Last Admin: 12/14/18 04:57 Dose: 100 mg Fluconazole (Diflucan Iv 200 Mg/100 Ml Ns) 100 mls @ 100 mls/hr IVPB Q24H [facility]; Protocol Last Admin: 12/13/18 17:13 Dose: 100 mls/hr Insulin Detemir (Levemir) 25 unit SC Q12 [facility] Last Admin: 12/14/18 09:36 Dose: 25 units Insulin Human Regular (Novolin R) 0 unit SC ACHS [facility]; Protocol Last Admin: 12/14/18 13:11 Dose: Not Given Lactobacillus Acidophilus (Lactobacillus) 1 cap PO BID [facility] Last Admin: 12/14/18 09:33 Dose: 1 cap Methylprednisolone (Solu-Medrol) 30 mg 0.5 mg/kg (30 mg) IV BID [facility] Last Admin: 12/14/18 09:35 Dose: 30 mg Metoprolol Tartrate (Lopressor) 25 mg PO BID [facility] Last Admin: 12/14/18 09:36 Dose: 25 mg Montelukast Sodium (Singulair) 10 mg PO HS [facility] Last Admin: 12/13/18 21:49 Dose: 10 mg Multivitamins (Hexavitamin) 1 tab PO DAILY [facility] Last Admin: 12/14/18 09:31 Dose: 1 tab Oxycodone/Acetaminophen (Percocet 5/325 Mg Tab) 1 tab PO Q4H PRN PRN Reason: Pain, moderate (4-7) Stop: 12/15/18 06:43 Last Admin: 12/13/18 21:49 Dose: 1 tab - Labs Labs: 12/14/18 11:45 12/14/18 11:45 PT 18.6 SECONDS (9.7-12.2) H 11/30/18 09:35 INR 1.7 11/30/18 09:35 APTT 40 SECONDS (21-34) H 11/30/18 09:35 - Constitutional Appears: In Acute Distress - Head Exam Head Exam: ATRAUMATIC - Eye Exam Eye Exam: Normal appearance Pupil Exam: NORMAL ACCOMODATION - ENT Exam ENT Exam: Mucous Membranes Moist - Neck Exam Neck Exam: Full ROM - Respiratory Exam Respiratory Exam: Decreased Breath Sounds, Rales, Rhonchi, Wheezes - Cardiovascular Exam Cardiovascular Exam: REGULAR RHYTHM - GI/Abdominal Exam GI & Abdominal Exam: Normal Bowel Sounds - Rectal Exam Rectal Exam: NORMAL INSPECTION - Exam Exam: NORMAL INSPECTION - Extremities Exam Extremities Exam: Full ROM - Back Exam Back Exam: NORMAL INSPECTION - Neurological Exam Neurological Exam: Awake, Oriented x3 - Psychiatric Exam Psychiatric exam: Normal Affect - Skin Skin Exam: Pallor Assessment and Plan - Assessment and Plan (Free Text) Assessment: copd exacerbation lung infection aneamia hiv Plan: continu as ordered
[2018-12-14] MEDS: Fluconazole IV 200mg/100 ml NS 100 ML IVPB SCH (17:38)
--- NOTE | 2018-12-14 19:55 | CP.PCM.PN ---
Subjective - Date & Time of Evaluation Date of Evaluation: 12/13/18 Time of Evaluation: 14:00 - Subjective Subjective: Appetite improved Objective - Vital Signs/Intake and Output Vital Signs (last 24 hours): Temp Pulse Resp BP Pulse Ox 98.1 F 106 H 20 142/90 100 12/14/18 15:00 12/14/18 16:00 12/14/18 15:00 12/14/18 17:39 12/14/18 15:00 - Medications Medications: Current Medications Acetaminophen (Tylenol 325mg Tab) 650 mg PO Q6 PRN PRN Reason: Pain, moderate (4-7) Last Admin: 12/03/18 12:48 Dose: 650 mg Albuterol/Ipratropium (Duoneb 3 Mg/0.5 Mg (3 Ml) Ud) 3 ml INH RQ4 [facility] Alprazolam (Xanax) 0.25 mg PO Q8H PRN PRN Reason: Anxiety Stop: 12/15/18 18:01 Last Admin: 12/12/18 19:51 Dose: 0.25 mg Amlodipine Besylate (Norvasc) 5 mg PO DAILY [facility] Last Admin: 12/14/18 09:31 Dose: 5 mg Aspirin (Aspirin Chewable) 81 mg PO DAILY [facility] Last Admin: 12/14/18 09:34 Dose: 81 mg Belladonna/Phenobarbital () 1 tab PO TID [facility] Last Admin: 12/14/18 17:39 Dose: 1 tab Budesonide (Pulmicort Respules) 0.25 mg INH RQ12 [facility] Last Admin: 12/14/18 07:10 Dose: 0.25 mg Clotrimazole (Mycelex Reilly) 10 mg MT 5XD [facility] Last Admin: 12/14/18 17:39 Dose: 10 mg Emollient Ointment (Vaseline Oint) 5 gm TOP Q4H PRN PRN Reason: DRY LIPS Last Admin: 12/14/18 17:40 Dose: 5 gm Famotidine (Pepcid) 20 mg PO 1000 [facility] Last Admin: 12/14/18 09:31 Dose: 20 mg Ferrous Gluconate (Fergon) 324 mg PO DAILY [facility] Last Admin: 12/14/18 09:34 Dose: 324 mg Furosemide (Lasix) 20 mg IVP DAILY [facility] Last Admin: 12/14/18 09:35 Dose: 20 mg Gabapentin (Neurontin) 300 mg PO TID [facility] Last Admin: 12/14/18 17:39 Dose: 300 mg Guaifenesin (Robitussin) 100 mg PO Q4H PRN PRN Reason: Cough Last Admin: 12/14/18 04:57 Dose: 100 mg Fluconazole (Diflucan Iv 200 Mg/100 Ml Ns) 100 mls @ 100 mls/hr IVPB Q24H [facility]; Protocol Last Admin: 12/14/18 17:38 Dose: 100 mls/hr Insulin Detemir (Levemir) 25 unit SC Q12 [facility] Last Admin: 12/14/18 09:36 Dose: 25 units Insulin Human Regular (Novolin R) 0 unit SC ACHS [facility]; Protocol Last Admin: 12/14/18 17:22 Dose: Not Given Lactobacillus Acidophilus (Lactobacillus) 1 cap PO BID [facility] Last Admin: 12/14/18 17:39 Dose: 1 cap Methylprednisolone (Solu-Medrol) 30 mg 0.5 mg/kg (30 mg) IV BID [facility] Last Admin: 12/14/18 17:37 Dose: 30 mg Metoprolol Tartrate (Lopressor) 25 mg PO BID [facility] Last Admin: 12/14/18 17:39 Dose: 25 mg Montelukast Sodium (Singulair) 10 mg PO HS [facility] Last Admin: 12/13/18 21:49 Dose: 10 mg Multivitamins (Hexavitamin) 1 tab PO DAILY [facility] Last Admin: 12/14/18 09:31 Dose: 1 tab Oxycodone/Acetaminophen (Percocet 5/325 Mg Tab) 1 tab PO Q4H PRN PRN Reason: Pain, moderate (4-7) Stop: 12/15/18 06:43 Last Admin: 12/14/18 17:38 Dose: 1 tab - Labs Labs: 12/14/18 11:45 12/14/18 11:45 PT 18.6 SECONDS (9.7-12.2) H 11/30/18 09:35 INR 1.7 11/30/18 09:35 APTT 40 SECONDS (21-34) H 11/30/18 09:35 - Head Exam Head Exam: ATRAUMATIC - Eye Exam Eye Exam: Normal appearance - ENT Exam ENT Exam: Mucous Membranes Dry - Respiratory Exam Respiratory Exam: Decreased Breath Sounds - Cardiovascular Exam Cardiovascular Exam: +S1, +S2 - GI/Abdominal Exam GI & Abdominal Exam: Normal Bowel Sounds Assessment and Plan (1) Leukocytosis Assessment & Plan: on antibiotics, antifungal, and steroids. Status: Acute (2) Anemia Assessment & Plan: HIV and chronic disease s/p PRBC transfusion s/p Procrit Status: Acute (3) Lung cancer Assessment & Plan: stage IV agreeable to outpatient immunotherapy Status: Acute
--- NOTE | 2018-12-14 19:56 | CP.PCM.PN ---
Subjective - Date & Time of Evaluation Date of Evaluation: 12/14/18 Time of Evaluation: 18:00 - Subjective Subjective: No complaints. Objective - Vital Signs/Intake and Output Vital Signs (last 24 hours): Temp Pulse Resp BP Pulse Ox 98.1 F 106 H 20 142/90 100 12/14/18 15:00 12/14/18 16:00 12/14/18 15:00 12/14/18 17:39 12/14/18 15:00 - Medications Medications: Current Medications Acetaminophen (Tylenol 325mg Tab) 650 mg PO Q6 PRN PRN Reason: Pain, moderate (4-7) Last Admin: 12/03/18 12:48 Dose: 650 mg Albuterol/Ipratropium (Duoneb 3 Mg/0.5 Mg (3 Ml) Ud) 3 ml INH RQ4 [facility] Alprazolam (Xanax) 0.25 mg PO Q8H PRN PRN Reason: Anxiety Stop: 12/15/18 18:01 Last Admin: 12/12/18 19:51 Dose: 0.25 mg Amlodipine Besylate (Norvasc) 5 mg PO DAILY [facility] Last Admin: 12/14/18 09:31 Dose: 5 mg Aspirin (Aspirin Chewable) 81 mg PO DAILY [facility] Last Admin: 12/14/18 09:34 Dose: 81 mg Belladonna/Phenobarbital () 1 tab PO TID [facility] Last Admin: 12/14/18 17:39 Dose: 1 tab Budesonide (Pulmicort Respules) 0.25 mg INH RQ12 [facility] Last Admin: 12/14/18 07:10 Dose: 0.25 mg Clotrimazole (Mycelex Reilly) 10 mg MT 5XD [facility] Last Admin: 12/14/18 17:39 Dose: 10 mg Emollient Ointment (Vaseline Oint) 5 gm TOP Q4H PRN PRN Reason: DRY LIPS Last Admin: 12/14/18 17:40 Dose: 5 gm Famotidine (Pepcid) 20 mg PO 1000 [facility] Last Admin: 12/14/18 09:31 Dose: 20 mg Ferrous Gluconate (Fergon) 324 mg PO DAILY [facility] Last Admin: 12/14/18 09:34 Dose: 324 mg Furosemide (Lasix) 20 mg IVP DAILY [facility] Last Admin: 12/14/18 09:35 Dose: 20 mg Gabapentin (Neurontin) 300 mg PO TID [facility] Last Admin: 12/14/18 17:39 Dose: 300 mg Guaifenesin (Robitussin) 100 mg PO Q4H PRN PRN Reason: Cough Last Admin: 12/14/18 04:57 Dose: 100 mg Fluconazole (Diflucan Iv 200 Mg/100 Ml Ns) 100 mls @ 100 mls/hr IVPB Q24H [facility]; Protocol Last Admin: 12/14/18 17:38 Dose: 100 mls/hr Insulin Detemir (Levemir) 25 unit SC Q12 [facility] Last Admin: 12/14/18 09:36 Dose: 25 units Insulin Human Regular (Novolin R) 0 unit SC ACHS [facility]; Protocol Last Admin: 12/14/18 17:22 Dose: Not Given Lactobacillus Acidophilus (Lactobacillus) 1 cap PO BID [facility] Last Admin: 12/14/18 17:39 Dose: 1 cap Methylprednisolone (Solu-Medrol) 30 mg 0.5 mg/kg (30 mg) IV BID [facility] Last Admin: 12/14/18 17:37 Dose: 30 mg Metoprolol Tartrate (Lopressor) 25 mg PO BID [facility] Last Admin: 12/14/18 17:39 Dose: 25 mg Montelukast Sodium (Singulair) 10 mg PO HS [facility] Last Admin: 12/13/18 21:49 Dose: 10 mg Multivitamins (Hexavitamin) 1 tab PO DAILY [facility] Last Admin: 12/14/18 09:31 Dose: 1 tab Oxycodone/Acetaminophen (Percocet 5/325 Mg Tab) 1 tab PO Q4H PRN PRN Reason: Pain, moderate (4-7) Stop: 12/15/18 06:43 Last Admin: 12/14/18 17:38 Dose: 1 tab - Labs Labs: 12/14/18 11:45 12/14/18 11:45 PT 18.6 SECONDS (9.7-12.2) H 11/30/18 09:35 INR 1.7 11/30/18 09:35 APTT 40 SECONDS (21-34) H 11/30/18 09:35 - Head Exam Head Exam: ATRAUMATIC - Eye Exam Eye Exam: Normal appearance - ENT Exam ENT Exam: Mucous Membranes Dry - Respiratory Exam Respiratory Exam: NORMAL BREATHING PATTERN - Cardiovascular Exam Cardiovascular Exam: +S1, +S2 - GI/Abdominal Exam GI & Abdominal Exam: Normal Bowel Sounds Assessment and Plan (1) Leukocytosis Assessment & Plan: on antibiotics, antifungal, and steroids. 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
--- NOTE | 2018-12-14 22:18 | PN ---
DATE: 12/14/2018 LOCATION: 562, bed A. SUBJECTIVE: This 63-year-old female, seen and examined early today, still in a status of DNR and DNI, appeared to be somewhat awake and alert, tolerating oral intake better than before. No reported active GI bleeding, nausea, vomiting, but dyspepsia. No chest pain or palpitation, but intermittent period of some productive cough on and off. The entire chart is reviewed including the most recent lab results with today's white blood cells of 23.9, hemoglobin 8.4, hematocrit 26.5 with low indices highly suggestive of hypochromic microcytic anemia, but with normal platelet count, potassium 3.4, CO2 content 39 indicative of respiratory alkalosis with BUN of 24, creatinine of 0.8 with periods of hyper and hypoglycemia, the latest blood glucose level is 209. PHYSICAL EXAMINATION: GENERAL: A 63-year-old male. VITAL SIGNS: Afebrile with heart rate of 96, respiratory rate 20 to 22, blood pressure of 140/84. HEENT: Showed pale, dry oral mucous membrane. Nonicteric sclerae. LUNGS: Few scattered crepitation. Decreased air entry at bases. HEART: Positive S1 and S2. ABDOMEN: Soft with mild generalized tenderness. No mass or organomegaly. No rebound tenderness or guarding. EXTREMITIES: Lower extremities mild edematous changes. No clubbing or cyanosis. NEUROLOGIC: No reported new neurological deficits, sensory or motor. IMPRESSION: 1. Anemia. A possibility of gastrointestinal blood loss was raised versus anemia secondary to chronic disease. 2. Re-exacerbation of peptic ulcer disease. 3. Reported recently diagnosed lung carcinoma. 4. Known history of human immunodeficiency virus. 5. Known history of chronic obstructive pulmonary disease, bronchitis with pneumonia. 6. Dehydration with prerenal azotemia, mild. SUGGESTIONS: 1. Continue conservative treatment. 2. No further aggressive GI workup at this point until the patient is more stable clinically. Further recommendations to follow. Sarai Reynolds MD
[2018-12-15] MEDS: Albuterol-Ipratrop 3 mg / 0.5 (3 ml) UD INH SCH ×6 (00:22→19:30)
[2018-12-15] MEDS: Oxycodone/Acetaminophen 5/325 mg Tab PO PRN ×2 (02:17→19:17)
[2018-12-15] MEDS: (Novolin R) Insulin Human Regular 100 units/ml vial SC SCH ×4 (07:40→22:11)
[2018-12-15] MEDS: Budesonide 0.25 mg/2 ml Inhal Susp UD INH SCH ×2 (08:52→19:30)
[2018-12-15] MEDS: LIPASE/PROTEASE/AMYLASE 4,200 U ECC PO SCH ×3 (09:00→17:42)
[2018-12-15] MEDS: Lactobacillus Acidophilus 500 MU Cap PO SCH ×2 (10:01→17:43)
[2018-12-15] MEDS: Multiple Vitamins Tab PO SCH (10:02)
[2018-12-15] MEDS: Belladonna-Phenobarbital PO SCH ×3 (10:03→17:43)
[2018-12-15] MEDS: MethylPREDNISolone 40 mg Vial IV SCH ×2 (10:04→17:45)
[2018-12-15] MEDS: Insulin Detemir 100 units/ml Vial (Levemir) SC SCH ×2 (10:10→22:10)
--- NOTE | 2018-12-15 10:44 | CP.PCM.PN ---
<Kinga Gunn - Last Filed: 12/15/18 11:46> Subjective - Date & Time of Evaluation Date of Evaluation: 12/15/18 Time of Evaluation: 10:41 - Subjective Subjective: Pulm Consult for Dr. Alfaro Patient seen and examined at bedside. He states he remains slightly short of breath with productive cough but otherwise feels okay. Denies fatigue or bloody stool today. Patient stated he aspirated on his oatmeal this morning requiring assistance from the nursing staff but is doing fine now. Patient states he rarely uses BiPAP but it does help when he uses it. Patient admits to cough and shortness of breath but denies any other complaints. ROS: as listed in HPI otherwise reviewed and negative Objective - Vital Signs/Intake and Output Vital Signs (last 24 hours): Temp Pulse Resp BP Pulse Ox 97.9 F 103 H 18 122/62 98 12/15/18 07:35 12/15/18 07:35 12/15/18 07:35 12/15/18 10:02 12/15/18 07:35 Intake and Output: 12/15/18 12/15/18 06:59 18:59 Intake Total 340 Balance 340 - Medications Medications: Current Medications Acetaminophen (Tylenol 325mg Tab) 650 mg PO Q6 PRN PRN Reason: Pain, moderate (4-7) Last Admin: 12/03/18 12:48 Dose: 650 mg Albuterol/Ipratropium (Duoneb 3 Mg/0.5 Mg (3 Ml) Ud) 3 ml INH RQ4 [facility] Last Admin: 12/15/18 08:52 Dose: 3 ml Alprazolam (Xanax) 0.25 mg PO Q8H PRN PRN Reason: Anxiety Stop: 12/21/18 18:01 Amlodipine Besylate (Norvasc) 5 mg PO DAILY [facility] Last Admin: 12/15/18 10:02 Dose: 5 mg Aspirin (Aspirin Chewable) 81 mg PO DAILY [facility] Last Admin: 12/15/18 10:03 Dose: 81 mg Belladonna/Phenobarbital () 1 tab PO TID [facility] Last Admin: 12/15/18 10:03 Dose: 1 tab Budesonide (Pulmicort Respules) 0.25 mg INH RQ12 [facility] Last Admin: 12/15/18 08:52 Dose: 0.25 mg Clotrimazole (Mycelex Reilly) 10 mg MT 5XD [facility] Last Admin: 12/15/18 09:00 Dose: 10 mg Emollient Ointment (Vaseline Oint) 5 gm TOP Q4H PRN PRN Reason: DRY LIPS Last Admin: 12/14/18 17:40 Dose: 5 gm Famotidine (Pepcid) 20 mg PO 1000 [facility] Last Admin: 12/15/18 10:02 Dose: 20 mg Ferrous Gluconate (Fergon) 324 mg PO DAILY [facility] Last Admin: 12/15/18 10:07 Dose: 324 mg Furosemide (Lasix) 20 mg IVP DAILY [facility] Last Admin: 12/15/18 10:01 Dose: 20 mg Gabapentin (Neurontin) 300 mg PO TID [facility] Last Admin: 12/15/18 10:02 Dose: 300 mg Guaifenesin (Robitussin) 100 mg PO Q4H PRN PRN Reason: Cough Fluconazole (Diflucan Iv 200 Mg/100 Ml Ns) 100 mls @ 100 mls/hr IVPB Q24H [facility]; Protocol Last Admin: 12/14/18 17:38 Dose: 100 mls/hr Insulin Detemir (Levemir) 25 unit SC Q12 [facility] Last Admin: 12/15/18 10:10 Dose: 25 units Insulin Human Regular (Novolin R) 0 unit SC ACHS [facility]; Protocol Last Admin: 12/14/18 21:40 Dose: Not Given Lactobacillus Acidophilus (Lactobacillus) 1 cap PO BID [facility] Last Admin: 12/15/18 10:01 Dose: 1 cap Methylprednisolone (Solu-Medrol) 30 mg 0.5 mg/kg (30 mg) IV BID [facility] Last Admin: 12/15/18 10:04 Dose: 30 mg Metoprolol Tartrate (Lopressor) 25 mg PO BID [facility] Last Admin: 12/15/18 10:02 Dose: 25 mg Montelukast Sodium (Singulair) 10 mg PO HS [facility] Multivitamins (Hexavitamin) 1 tab PO DAILY [facility] Last Admin: 12/15/18 10:02 Dose: 1 tab Oxycodone/Acetaminophen (Percocet 5/325 Mg Tab) 1 tab PO Q4H PRN PRN Reason: Pain, moderate (4-7) Stop: 12/17/18 23:04 Last Admin: 12/15/18 02:17 Dose: 1 tab - Labs Labs: 12/14/18 11:45 12/14/18 11:45 PT 18.6 SECONDS (9.7-12.2) H 11/30/18 09:35 INR 1.7 11/30/18 09:35 APTT 40 SECONDS (21-34) H 11/30/18 09:35 - Constitutional Appears: Chronically Ill - Head Exam Head Exam: ATRAUMATIC, NORMOCEPHALIC - Eye Exam Eye Exam: Normal appearance - ENT Exam ENT Exam: Mucous Membranes Moist - Respiratory Exam Respiratory Exam: Decreased Breath Sounds, Rales (bilateral lower lobes), NORMAL BREATHING PATTERN - Cardiovascular Exam Cardiovascular Exam: +S1, +S2. absent: Murmur - GI/Abdominal Exam GI & Abdominal Exam: Soft, Normal Bowel Sounds. absent: Distended - Extremities Exam Extremities Exam: absent: Pedal Edema - Psychiatric Exam Psychiatric exam: Anxious - Skin Skin Exam: Dry, Warm Assessment and Plan - Assessment and Plan (Free Text) Assessment: 63 year old male with PMH of COPD exacerbations, lung cancer, HIV, HTN, DM, Hep C, Chronic Pancreatitis, admitted for worsening shortness of breath. Patient DNR/DNI Plan: 1. COPD exacerbation Hx of lung cancer leukocytosis Continue pulmicort, singulair, IV steriods for COPD BiPAP as needed IV abx and antifungal, further infectious management per ID/primary team Steriods may increase WBC Continue Robitussin Poor prognosis Continue to monitor for aspiration 2. Anemia hemoglobin up to 8.4 s/p pRBC (from 7.1 on 12/12) GI recommended no aggressive treatment until patient stabilizes <Wilbur Alfaro S - Last Filed: 12/15/18 15:47> Objective - Vital Signs/Intake and Output Vital Signs (last 24 hours): Temp Pulse Resp BP Pulse Ox 97.9 F 103 H 18 122/62 98 12/15/18 07:35 12/15/18 07:35 12/15/18 07:35 12/15/18 10:02 12/15/18 07:35 Intake and Output: 12/15/18 12/15/18 06:59 18:59 Intake Total 340 Balance 340 - Medications Medications: Current Medications Acetaminophen (Tylenol 325mg Tab) 650 mg PO Q6 PRN PRN Reason: Pain, moderate (4-7) Last Admin: 12/03/18 12:48 Dose: 650 mg Albuterol/Ipratropium (Duoneb 3 Mg/0.5 Mg (3 Ml) Ud) 3 ml INH RQ4 [facility] Last Admin: 12/15/18 15:05 Dose: 3 ml Alprazolam (Xanax) 0.25 mg PO Q8H PRN PRN Reason: Anxiety Stop: 12/21/18 18:01 Amlodipine Besylate (Norvasc) 5 mg PO DAILY [facility] Last Admin: 12/15/18 10:02 Dose: 5 mg Aspirin (Aspirin Chewable) 81 mg PO DAILY [facility] Last Admin: 12/15/18 10:03 Dose: 81 mg Belladonna/Phenobarbital () 1 tab PO TID [facility] Last Admin: 12/15/18 14:28 Dose: 1 tab Budesonide (Pulmicort Respules) 0.25 mg INH RQ12 [facility] Last Admin: 12/15/18 08:52 Dose: 0.25 mg Clotrimazole (Mycelex Reilly) 10 mg MT 5XD [facility] Last Admin: 12/15/18 14:36 Dose: 10 mg Emollient Ointment (Vaseline Oint) 5 gm TOP Q4H PRN PRN Reason: DRY LIPS Last Admin: 12/14/18 17:40 Dose: 5 gm Famotidine (Pepcid) 20 mg PO 1000 [facility] Last Admin: 12/15/18 10:02 Dose: 20 mg Ferrous Gluconate (Fergon) 324 mg PO DAILY [facility] Last Admin: 12/15/18 10:07 Dose: 324 mg Furosemide (Lasix) 20 mg IVP DAILY [facility] Last Admin: 12/15/18 10:01 Dose: 20 mg Gabapentin (Neurontin) 300 mg PO TID [facility] Last Admin: 12/15/18 14:28 Dose: 300 mg Guaifenesin (Robitussin) 100 mg PO Q4H PRN PRN Reason: Cough Fluconazole (Diflucan Iv 200 Mg/100 Ml Ns) 100 mls @ 100 mls/hr IVPB Q24H [facility]; Protocol Last Admin: 12/14/18 17:38 Dose: 100 mls/hr Insulin Detemir (Levemir) 25 unit SC Q12 [facility] Last Admin: 12/15/18 10:10 Dose: 25 units Insulin Human Regular (Novolin R) 0 unit SC ACHS [facility]; Protocol Last Admin: 12/15/18 12:43 Dose: 4 units Lactobacillus Acidophilus (Lactobacillus) 1 cap PO BID [facility] Last Admin: 12/15/18 10:01 Dose: 1 cap Methylprednisolone (Solu-Medrol) 30 mg 0.5 mg/kg (30 mg) IV BID [facility] Last Admin: 12/15/18 10:04 Dose: 30 mg Metoprolol Tartrate (Lopressor) 25 mg PO BID [facility] Last Admin: 12/15/18 10:02 Dose: 25 mg Montelukast Sodium (Singulair) 10 mg PO [facility] Multivitamins (Hexavitamin) 1 tab PO DAILY [facility] Last Admin: 12/15/18 10:02 Dose: 1 tab Oxycodone/Acetaminophen (Percocet 5/325 Mg Tab) 1 tab PO Q4H PRN PRN Reason: Pain, moderate (4-7) Stop: 12/17/18 23:04 Last Admin: 12/15/18 02:17 Dose: 1 tab - Labs Labs: 12/14/18 11:45 12/14/18 11:45 PT 18.6 SECONDS (9.7-12.2) H 11/30/18 09:35 INR 1.7 11/30/18 09:35 APTT 40 SECONDS (21-34) H 11/30/18 09:35 Assessment and Plan (1) COPD exacerbation Status: Acute (2) HIV (human immunodeficiency virus infection) Status: Acute (3) Lung mass Status: Acute Attending/Attestation - Attestation I have personally seen and examined this patient.: Yes I have fully participated in the care of the patient.: Yes I have reviewed all pertinent clinical information, including history, physical exam and plan: Yes Notes (Text): 12/15/18 15:46 Patient seen and examined Case discussed with residents during the round Complaining of weakness No active bleeding Continue BiPAP as needed Continue present treatment Prognosis poor
--- NOTE | 2018-12-15 12:30 | CP.PCM.PN ---
Subjective - Date & Time of Evaluation Date of Evaluation: 12/15/18 Time of Evaluation: 12:27 - Subjective Subjective: pt sob coughing weeke Objective - Vital Signs/Intake and Output Vital Signs (last 24 hours): Temp Pulse Resp BP Pulse Ox 97.9 F 103 H 18 122/62 98 12/15/18 07:35 12/15/18 07:35 12/15/18 07:35 12/15/18 10:02 12/15/18 07:35 Intake and Output: 12/15/18 12/15/18 06:59 18:59 Intake Total 340 Balance 340 - Medications Medications: Current Medications Acetaminophen (Tylenol 325mg Tab) 650 mg PO Q6 PRN PRN Reason: Pain, moderate (4-7) Last Admin: 12/03/18 12:48 Dose: 650 mg Albuterol/Ipratropium (Duoneb 3 Mg/0.5 Mg (3 Ml) Ud) 3 ml INH RQ4 [facility] Last Admin: 12/15/18 11:24 Dose: Not Given Alprazolam (Xanax) 0.25 mg PO Q8H PRN PRN Reason: Anxiety Stop: 12/21/18 18:01 Amlodipine Besylate (Norvasc) 5 mg PO DAILY [facility] Last Admin: 12/15/18 10:02 Dose: 5 mg Aspirin (Aspirin Chewable) 81 mg PO DAILY [facility] Last Admin: 12/15/18 10:03 Dose: 81 mg Belladonna/Phenobarbital () 1 tab PO TID [facility] Last Admin: 12/15/18 10:03 Dose: 1 tab Budesonide (Pulmicort Respules) 0.25 mg INH RQ12 [facility] Last Admin: 12/15/18 08:52 Dose: 0.25 mg Clotrimazole (Mycelex Reilly) 10 mg MT 5XD [facility] Last Admin: 12/15/18 09:00 Dose: 10 mg Emollient Ointment (Vaseline Oint) 5 gm TOP Q4H PRN PRN Reason: DRY LIPS Last Admin: 12/14/18 17:40 Dose: 5 gm Famotidine (Pepcid) 20 mg PO 1000 [facility] Last Admin: 12/15/18 10:02 Dose: 20 mg Ferrous Gluconate (Fergon) 324 mg PO DAILY [facility] Last Admin: 12/15/18 10:07 Dose: 324 mg Furosemide (Lasix) 20 mg IVP DAILY [facility] Last Admin: 12/15/18 10:01 Dose: 20 mg Gabapentin (Neurontin) 300 mg PO TID [facility] Last Admin: 12/15/18 10:02 Dose: 300 mg Guaifenesin (Robitussin) 100 mg PO Q4H PRN PRN Reason: Cough Fluconazole (Diflucan Iv 200 Mg/100 Ml Ns) 100 mls @ 100 mls/hr IVPB Q24H [facility]; Protocol Last Admin: 12/14/18 17:38 Dose: 100 mls/hr Insulin Detemir (Levemir) 25 unit SC Q12 [facility] Last Admin: 12/15/18 10:10 Dose: 25 units Insulin Human Regular (Novolin R) 0 unit SC ACHS [facility]; Protocol Last Admin: 12/14/18 21:40 Dose: Not Given Lactobacillus Acidophilus (Lactobacillus) 1 cap PO BID [facility] Last Admin: 12/15/18 10:01 Dose: 1 cap Methylprednisolone (Solu-Medrol) 30 mg 0.5 mg/kg (30 mg) IV BID [facility] Last Admin: 12/15/18 10:04 Dose: 30 mg Metoprolol Tartrate (Lopressor) 25 mg PO BID [facility] Last Admin: 12/15/18 10:02 Dose: 25 mg Montelukast Sodium (Singulair) 10 mg PO HS [facility] Multivitamins (Hexavitamin) 1 tab PO DAILY [facility] Last Admin: 12/15/18 10:02 Dose: 1 tab Oxycodone/Acetaminophen (Percocet 5/325 Mg Tab) 1 tab PO Q4H PRN PRN Reason: Pain, moderate (4-7) Stop: 12/17/18 23:04 Last Admin: 12/15/18 02:17 Dose: 1 tab - Labs Labs: 12/14/18 11:45 12/14/18 11:45 PT 18.6 SECONDS (9.7-12.2) H 11/30/18 09:35 INR 1.7 11/30/18 09:35 APTT 40 SECONDS (21-34) H 11/30/18 09:35 - Constitutional Appears: In Acute Distress - Head Exam Head Exam: ATRAUMATIC - Eye Exam Eye Exam: Normal appearance Pupil Exam: PERRL - ENT Exam ENT Exam: Mucous Membranes Moist - Neck Exam Neck Exam: Full ROM - Respiratory Exam Respiratory Exam: Decreased Breath Sounds, Rales, Rhonchi, Wheezes - Cardiovascular Exam Cardiovascular Exam: REGULAR RHYTHM - GI/Abdominal Exam GI & Abdominal Exam: Normal Bowel Sounds - Exam External exam: NORMAL EXTERNAL EXAM - Extremities Exam Extremities Exam: Normal Inspection - Neurological Exam Neurological Exam: Awake, Oriented x3 - Psychiatric Exam Psychiatric exam: Normal Affect - Skin Skin Exam: Pallor Assessment and Plan - Assessment and Plan (Free Text) Assessment: ca lung lung infection aneamia hiv generalised weekness continu tretment
[2018-12-15] MEDS: Fluconazole IV 200mg/100 ml NS 100 ML IVPB SCH (17:44)
[2018-12-15] MEDS: guaiFENesin 100 mg/5 ml Syrup UD PO PRN (17:59)
--- NOTE | 2018-12-15 19:37 | CP.PCM.PN ---
Subjective - Date & Time of Evaluation Date of Evaluation: 12/15/18 Time of Evaluation: 12:00 - Subjective Subjective: Has cough Objective - Vital Signs/Intake and Output Vital Signs (last 24 hours): Temp Pulse Resp BP Pulse Ox 99.4 F 112 H 20 144/93 H 95 12/15/18 15:00 12/15/18 15:00 12/15/18 15:00 12/15/18 17:44 12/15/18 15:00 - Medications Medications: Current Medications Acetaminophen (Tylenol 325mg Tab) 650 mg PO Q6 PRN PRN Reason: Pain, moderate (4-7) Last Admin: 12/03/18 12:48 Dose: 650 mg Albuterol/Ipratropium (Duoneb 3 Mg/0.5 Mg (3 Ml) Ud) 3 ml INH RQ4 [facility] Last Admin: 12/15/18 19:30 Dose: 3 ml Alprazolam (Xanax) 0.25 mg PO Q8H PRN PRN Reason: Anxiety Stop: 12/21/18 18:01 Amlodipine Besylate (Norvasc) 5 mg PO DAILY [facility] Last Admin: 12/15/18 10:02 Dose: 5 mg Aspirin (Aspirin Chewable) 81 mg PO DAILY [facility] Last Admin: 12/15/18 10:03 Dose: 81 mg Belladonna/Phenobarbital () 1 tab PO TID [facility] Last Admin: 12/15/18 17:43 Dose: 1 tab Budesonide (Pulmicort Respules) 0.25 mg INH RQ12 [facility] Last Admin: 12/15/18 19:30 Dose: 0.25 mg Clotrimazole (Mycelex Reilly) 10 mg MT 5XD [facility] Last Admin: 12/15/18 17:42 Dose: 10 mg Emollient Ointment (Vaseline Oint) 5 gm TOP Q4H PRN PRN Reason: DRY LIPS Last Admin: 12/14/18 17:40 Dose: 5 gm Famotidine (Pepcid) 20 mg PO 1000 [facility] Last Admin: 12/15/18 10:02 Dose: 20 mg Ferrous Gluconate (Fergon) 324 mg PO DAILY [facility] Last Admin: 12/15/18 10:07 Dose: 324 mg Furosemide (Lasix) 20 mg IVP DAILY [facility] Last Admin: 12/15/18 10:01 Dose: 20 mg Gabapentin (Neurontin) 300 mg PO TID [facility] Last Admin: 12/15/18 17:43 Dose: 300 mg Guaifenesin (Robitussin) 100 mg PO Q4H PRN PRN Reason: Cough Last Admin: 12/15/18 17:59 Dose: 100 mg Fluconazole (Diflucan Iv 200 Mg/100 Ml Ns) 100 mls @ 100 mls/hr IVPB Q24H [facility]; Protocol Last Admin: 12/15/18 17:44 Dose: 100 mls/hr Insulin Detemir (Levemir) 25 unit SC Q12 [facility] Last Admin: 12/15/18 10:10 Dose: 25 units Insulin Human Regular (Novolin R) 0 unit SC ACHS [facility]; Protocol Last Admin: 12/15/18 17:30 Dose: 2 units Lactobacillus Acidophilus (Lactobacillus) 1 cap PO BID [facility] Last Admin: 12/15/18 17:43 Dose: 1 cap Methylprednisolone (Solu-Medrol) 30 mg 0.5 mg/kg (30 mg) IV BID [facility] Last Admin: 12/15/18 17:45 Dose: 30 mg Metoprolol Tartrate (Lopressor) 25 mg PO BID [facility] Last Admin: 12/15/18 17:44 Dose: 25 mg Montelukast Sodium (Singulair) 10 mg PO HS [facility] Multivitamins (Hexavitamin) 1 tab PO DAILY [facility] Last Admin: 12/15/18 10:02 Dose: 1 tab Oxycodone/Acetaminophen (Percocet 5/325 Mg Tab) 1 tab PO Q4H PRN PRN Reason: Pain, moderate (4-7) Stop: 12/17/18 23:04 Last Admin: 12/15/18 19:17 Dose: 1 tab - Labs Labs: 12/14/18 11:45 12/14/18 11:45 PT 18.6 SECONDS (9.7-12.2) H 11/30/18 09:35 INR 1.7 11/30/18 09:35 APTT 40 SECONDS (21-34) H 11/30/18 09:35 - Head Exam Head Exam: ATRAUMATIC - Eye Exam Eye Exam: Normal appearance - ENT Exam ENT Exam: Mucous Membranes Dry - Respiratory Exam Respiratory Exam: Decreased Breath Sounds - Cardiovascular Exam Cardiovascular Exam: +S1, +S2 - GI/Abdominal Exam GI & Abdominal Exam: Normal Bowel Sounds Assessment and Plan (1) Leukocytosis Assessment & Plan: on antifungal, and steroids. 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
[2018-12-16] MEDS: Albuterol-Ipratrop 3 mg / 0.5 (3 ml) UD INH SCH ×6 (00:36→19:40)
--- NOTE | 2018-12-16 01:19 | PN ---
DATE: 12/15/2018 LOCATION: Room 672, bed A. SUBJECTIVE: This is a 63-year-old male, seen and examined in rounds in a status of DNR and DNR without significant clinical changes, case discussed with the primary MD, Dr. Jana Garcia, and the patient still has intermittent period of productive cough with mild generalized abdominal pain and periods of shortness of breath but no chest pain, palpitation and no reported active GI bleeding, has been on BIPAP on and off. The entire chart is reviewed including but not limited to the most recent lab and radiology study results with today's labs show blood glucose level of 298. Rest of the lab results is still pending and the patient continuously has leukocytosis with low hemoglobin and hematocrit but normal platelet count with mildly increased BUN but normal creatinine. PHYSICAL EXAMINATION: GENERAL: A 63-year-old male, afebrile with pulse of 98, respiratory rate 20-22, blood pressure 130/86. HEENT: Pale, dry oral mucous membrane. Nonicteric sclerae. LUNGS: Few scattered crepitation. Decreased air entry at bases. HEART: Positive S1 and S2. ABDOMEN: Soft with mild generalized tenderness. No mass or organomegaly. No rebound tenderness or guarding. Bowel sounds are present. RECTAL: The patient refused. EXTREMITIES: Lower extremity edematous changes. No clubbing or cyanosis. NEUROLOGICAL: No reported new neurological deficits, sensory or motor. IMPRESSION: 1. Anemia most likely secondary to chronic disease. 2. Peptic ulcer disease. 3. Reported recent diagnosis of lung cancer. 4. Known history of human immunodeficiency virus. 5. Dehydration. 6. Chronic obstructive pulmonary disease and pneumonia with episodes of bronchitis in the past. SUGGESTIONS: 1. Continue supportive treatment. 2. Guaiac all the stools daily x3. 3. Antireflux measures. 4. Further recommendation to follow. Sarai Reynolds MD
[2018-12-16] MEDS: guaiFENesin 100 mg/5 ml Syrup UD PO PRN ×3 (03:53→16:27)
[2018-12-16] MEDS: Oxycodone/Acetaminophen 5/325 mg Tab PO PRN (06:38)
[2018-12-16] MEDS: Budesonide 0.25 mg/2 ml Inhal Susp UD INH SCH ×2 (08:19→19:40)
[2018-12-16] MEDS: (Novolin R) Insulin Human Regular 100 units/ml vial SC SCH ×4 (08:22→22:11)
[2018-12-16] MEDS: LIPASE/PROTEASE/AMYLASE 4,200 U ECC PO SCH ×3 (08:23→17:37)
--- NOTE | 2018-12-16 10:08 | CP.PCM.PN ---
Subjective - Date & Time of Evaluation Date of Evaluation: 12/16/18 Time of Evaluation: 10:05 - Subjective Subjective: pt has cough sob wheing weeke Objective - Vital Signs/Intake and Output Vital Signs (last 24 hours): Temp Pulse Resp BP Pulse Ox 98.7 F 76 20 160/89 H 97 12/16/18 07:00 12/16/18 07:00 12/16/18 07:00 12/16/18 07:00 12/16/18 07:00 Intake and Output: 12/16/18 12/16/18 06:59 18:59 Output Total 400 Balance -400 - Medications Medications: Current Medications Acetaminophen (Tylenol 325mg Tab) 650 mg PO Q6 PRN PRN Reason: Pain, moderate (4-7) Last Admin: 12/03/18 12:48 Dose: 650 mg Albuterol/Ipratropium (Duoneb 3 Mg/0.5 Mg (3 Ml) Ud) 3 ml INH RQ4 [facility] Last Admin: 12/16/18 08:19 Dose: 3 ml Alprazolam (Xanax) 0.25 mg PO Q8H PRN PRN Reason: Anxiety Stop: 12/21/18 18:01 Amlodipine Besylate (Norvasc) 5 mg PO DAILY [facility] Last Admin: 12/15/18 10:02 Dose: 5 mg Aspirin (Aspirin Chewable) 81 mg PO DAILY [facility] Last Admin: 12/15/18 10:03 Dose: 81 mg Belladonna/Phenobarbital () 1 tab PO TID [facility] Last Admin: 12/15/18 17:43 Dose: 1 tab Budesonide (Pulmicort Respules) 0.25 mg INH RQ12 [facility] Last Admin: 12/16/18 08:19 Dose: 0.25 mg Clotrimazole (Mycelex Reilly) 10 mg MT 5XD [facility] Last Admin: 12/16/18 08:23 Dose: 10 mg Emollient Ointment (Vaseline Oint) 5 gm TOP Q4H PRN PRN Reason: DRY LIPS Last Admin: 12/14/18 17:40 Dose: 5 gm Famotidine (Pepcid) 20 mg PO 1000 [facility] Last Admin: 12/15/18 10:02 Dose: 20 mg Ferrous Gluconate (Fergon) 324 mg PO DAILY [facility] Last Admin: 12/15/18 10:07 Dose: 324 mg Furosemide (Lasix) 20 mg IVP DAILY [facility] Last Admin: 12/15/18 10:01 Dose: 20 mg Gabapentin (Neurontin) 300 mg PO TID [facility] Last Admin: 12/15/18 17:43 Dose: 300 mg Guaifenesin (Robitussin) 100 mg PO Q4H PRN PRN Reason: Cough Last Admin: 12/16/18 03:53 Dose: 100 mg Fluconazole (Diflucan Iv 200 Mg/100 Ml Ns) 100 mls @ 100 mls/hr IVPB Q24H [facility]; Protocol Last Admin: 12/15/18 17:44 Dose: 100 mls/hr Insulin Detemir (Levemir) 25 unit SC Q12 [facility] Last Admin: 12/15/18 22:10 Dose: 25 units Insulin Human Regular (Novolin R) 0 unit SC ACHS [facility]; Protocol Last Admin: 12/16/18 08:22 Dose: 4 units Lactobacillus Acidophilus (Lactobacillus) 1 cap PO BID [facility] Last Admin: 12/15/18 17:43 Dose: 1 cap Methylprednisolone (Solu-Medrol) 30 mg 0.5 mg/kg (30 mg) IV BID [facility] Last Admin: 12/15/18 17:45 Dose: 30 mg Metoprolol Tartrate (Lopressor) 25 mg PO BID [facility] Last Admin: 12/15/18 17:44 Dose: 25 mg Montelukast Sodium (Singulair) 10 mg PO HS [facility] Last Admin: 12/15/18 22:10 Dose: 10 mg Multivitamins (Hexavitamin) 1 tab PO DAILY [facility] Last Admin: 12/15/18 10:02 Dose: 1 tab Oxycodone/Acetaminophen (Percocet 5/325 Mg Tab) 1 tab PO Q4H PRN PRN Reason: Pain, moderate (4-7) Stop: 12/17/18 23:04 Last Admin: 12/16/18 06:38 Dose: 1 tab - Labs Labs: 12/14/18 11:45 12/14/18 11:45 PT 18.6 SECONDS (9.7-12.2) H 11/30/18 09:35 INR 1.7 11/30/18 09:35 APTT 40 SECONDS (21-34) H 11/30/18 09:35 - Constitutional Appears: In Acute Distress - Head Exam Head Exam: ATRAUMATIC - Eye Exam Eye Exam: Normal appearance, PERRL Pupil Exam: NORMAL ACCOMODATION - ENT Exam ENT Exam: Mucous Membranes Moist - Neck Exam Neck Exam: Full ROM - Respiratory Exam Respiratory Exam: Decreased Breath Sounds, Wheezes - Cardiovascular Exam Cardiovascular Exam: REGULAR RHYTHM - GI/Abdominal Exam GI & Abdominal Exam: Normal Bowel Sounds - Extremities Exam Extremities Exam: Normal Inspection - Back Exam Back Exam: NORMAL INSPECTION - Neurological Exam Neurological Exam: Alert, Awake, Oriented x3 - Psychiatric Exam Psychiatric exam: Normal Affect - Skin Skin Exam: Pallor Assessment and Plan - Assessment and Plan (Free Text) Assessment: ca lung aneamia hiv infection lung generalised weekness Plan: arrange for rehab
[2018-12-16] MEDS: Lactobacillus Acidophilus 500 MU Cap PO SCH ×2 (10:18→17:38)
[2018-12-16] MEDS: Belladonna-Phenobarbital PO SCH ×3 (10:18→17:37)
[2018-12-16] MEDS: Multiple Vitamins Tab PO SCH (10:19)
[2018-12-16] MEDS: MethylPREDNISolone 40 mg Vial IV SCH ×2 (10:19→17:37)
[2018-12-16] MEDS: Insulin Detemir 100 units/ml Vial (Levemir) SC SCH ×2 (10:37→22:11)
--- NOTE | 2018-12-16 11:31 | PN ---
DATE: 12/16/2018 LOCATION: 672, bed A. SUBJECTIVE: This 63-year-old male seen in rounds early in the morning without significant clinical changes, but intermittent period of productive cough with shortness of breath on and off. No chest pain, palpitation and no reported evidence of active GI bleeding. The entire chart is reviewed including but not limited to the most recent lab and radiology study results and today's lab results showed blood glucose level 299. Rest of lab results still pending. PHYSICAL EXAMINATION: GENERAL: A 63-year-old male awake, alert. VITAL SIGNS: Afebrile with pulse of 100, respiratory rate 20-24 with blood pressure of 136/82. HEENT: Showed pale, dry oral mucous membrane. Nonicteric sclerae. LUNGS: Few scattered crepitation. Decreased air entry at bases. HEART: Positive S1 and S2. ABDOMEN: Soft with mild generalized tenderness. No mass or organomegaly. No rebound tenderness or guarding. EXTREMITIES: Without significant clubbing, cyanosis or edema. No reported new neurological deficits, sensory or motor. IMPRESSION: 1. Peptic ulcer disease. 2. Anemia most likely secondary to chronic disease. No evidence of active gastrointestinal bleeding. 3. Known history of human immunodeficiency virus. 4. Reported lung cancer recently. 5. Dehydration. 6. Chronic obstructive pulmonary disease with pneumonia and episodes of bronchitis before. SUGGESTIONS: 1. Continue current management. 2. The patient is DNR/DNI, and no aggressive GI workup at this point. 3. Further recommendation to follow. Sarai Reynolds MD
--- NOTE | 2018-12-16 14:14 | CP.PCM.PN ---
Subjective - Date & Time of Evaluation Date of Evaluation: 12/16/18 Time of Evaluation: 14:00 - Subjective Subjective: Patient seen and examined Complaining of shortness of breath and weakness On BiPAP as needed Continue antibiotics, steroids, nebulizer treatment Follow-up CBC Objective - Vital Signs/Intake and Output Vital Signs (last 24 hours): Temp Pulse Resp BP Pulse Ox 98.7 F 76 20 160/80 H 97 12/16/18 07:00 12/16/18 07:00 12/16/18 07:00 12/16/18 10:19 12/16/18 07:00 Intake and Output: 12/16/18 12/16/18 06:59 18:59 Intake Total 480 Output Total 400 400 Balance -400 80 - Medications Medications: Current Medications Acetaminophen (Tylenol 325mg Tab) 650 mg PO Q6 PRN PRN Reason: Pain, moderate (4-7) Last Admin: 12/03/18 12:48 Dose: 650 mg Albuterol/Ipratropium (Duoneb 3 Mg/0.5 Mg (3 Ml) Ud) 3 ml INH RQ4 [facility] Last Admin: 12/16/18 13:13 Dose: 3 ml Alprazolam (Xanax) 0.25 mg PO Q8H PRN PRN Reason: Anxiety Stop: 12/21/18 18:01 Amlodipine Besylate (Norvasc) 5 mg PO DAILY [facility] Last Admin: 12/16/18 10:18 Dose: 5 mg Aspirin (Aspirin Chewable) 81 mg PO DAILY [facility] Last Admin: 12/16/18 10:18 Dose: 81 mg Belladonna/Phenobarbital () 1 tab PO TID [facility] Last Admin: 12/16/18 10:18 Dose: 1 tab Budesonide (Pulmicort Respules) 0.25 mg INH RQ12 [facility] Last Admin: 12/16/18 08:19 Dose: 0.25 mg Clotrimazole (Mycelex Reilly) 10 mg MT 5XD [facility] Last Admin: 12/16/18 12:36 Dose: 10 mg Emollient Ointment (Vaseline Oint) 5 gm TOP Q4H PRN PRN Reason: DRY LIPS Last Admin: 12/14/18 17:40 Dose: 5 gm Famotidine (Pepcid) 20 mg PO 1000 [facility] Last Admin: 12/16/18 10:18 Dose: 20 mg Ferrous Gluconate (Fergon) 324 mg PO DAILY [facility] Last Admin: 12/16/18 10:18 Dose: 324 mg Furosemide (Lasix) 20 mg IVP DAILY [facility] Last Admin: 12/16/18 10:19 Dose: 20 mg Gabapentin (Neurontin) 300 mg PO TID [facility] Last Admin: 12/16/18 10:18 Dose: 300 mg Guaifenesin (Robitussin) 100 mg PO Q4H PRN PRN Reason: Cough Last Admin: 12/16/18 10:16 Dose: 100 mg Fluconazole (Diflucan Iv 200 Mg/100 Ml Ns) 100 mls @ 100 mls/hr IVPB Q24H [facility]; Protocol Last Admin: 12/15/18 17:44 Dose: 100 mls/hr Insulin Detemir (Levemir) 25 unit SC Q12 [facility] Last Admin: 12/16/18 10:37 Dose: 25 units Insulin Human Regular (Novolin R) 0 unit SC ACHS [facility]; Protocol Last Admin: 12/16/18 12:33 Dose: 4 units Lactobacillus Acidophilus (Lactobacillus) 1 cap PO BID [facility] Last Admin: 12/16/18 10:18 Dose: 1 cap Methylprednisolone (Solu-Medrol) 30 mg 0.5 mg/kg (30 mg) IV BID [facility] Last Admin: 12/16/18 10:19 Dose: 30 mg Metoprolol Tartrate (Lopressor) 25 mg PO BID [facility] Last Admin: 12/16/18 10:19 Dose: 25 mg Montelukast Sodium (Singulair) 10 mg PO HS [facility] Last Admin: 12/15/18 22:10 Dose: 10 mg Multivitamins (Hexavitamin) 1 tab PO DAILY [facility] Last Admin: 12/16/18 10:19 Dose: 1 tab Oxycodone/Acetaminophen (Percocet 5/325 Mg Tab) 1 tab PO Q4H PRN PRN Reason: Pain, moderate (4-7) Stop: 12/17/18 23:04 Last Admin: 12/16/18 06:38 Dose: 1 tab - Labs Labs: 12/14/18 11:45 12/14/18 11:45 PT 18.6 SECONDS (9.7-12.2) H 11/30/18 09:35 INR 1.7 11/30/18 09:35 APTT 40 SECONDS (21-34) H 11/30/18 09:35 Assessment and Plan (1) COPD exacerbation Status: Acute (2) HIV (human immunodeficiency virus infection) Status: Acute (3) Lung mass Status: Acute
[2018-12-16] MEDS: Petrolatum Oint Foilpak (5 gm) TOP PRN (16:27)
[2018-12-16] MEDS: Fluconazole IV 200mg/100 ml NS 100 ML IVPB SCH (17:38)
[2018-12-16] MEDS ORDERED: Bisacodyl 5mg EC Tab PO ONE (22:24)
[2018-12-17] MEDS: Albuterol-Ipratrop 3 mg / 0.5 (3 ml) UD INH SCH ×4 (00:25→11:39)
[2018-12-17] MEDS: Oxycodone/Acetaminophen 5/325 mg Tab PO PRN (05:08)
[2018-12-17] MEDS: guaiFENesin 100 mg/5 ml Syrup UD PO PRN (05:09)
[2018-12-17] MEDS: Budesonide 0.25 mg/2 ml Inhal Susp UD INH SCH ×2 (08:05→19:50)
[2018-12-17] MEDS: (Novolin R) Insulin Human Regular 100 units/ml vial SC SCH ×4 (08:11→21:26)
--- NOTE | 2018-12-17 10:05 | CP.PCM.PN ---
Subjective - Date & Time of Evaluation Date of Evaluation: 12/17/18 Time of Evaluation: 10:02 - Subjective Subjective: pt weeke coughing sob Objective - Vital Signs/Intake and Output Vital Signs (last 24 hours): Temp Pulse Resp BP Pulse Ox 98.4 F 112 H 20 112/76 96 12/17/18 09:12 12/17/18 09:12 12/17/18 09:12 12/17/18 09:12 12/17/18 09:12 Intake and Output: 12/17/18 12/17/18 06:59 18:59 Intake Total 420 Output Total 450 Balance -30 - Medications Medications: Current Medications Acetaminophen (Tylenol 325mg Tab) 650 mg PO Q6 PRN PRN Reason: Pain, moderate (4-7) Last Admin: 12/03/18 12:48 Dose: 650 mg Albuterol/Ipratropium (Duoneb 3 Mg/0.5 Mg (3 Ml) Ud) 3 ml INH RQ4 [facility] Last Admin: 12/17/18 08:05 Dose: 3 ml Alprazolam (Xanax) 0.25 mg PO Q8H PRN PRN Reason: Anxiety Stop: 12/21/18 18:01 Amlodipine Besylate (Norvasc) 5 mg PO DAILY [facility] Last Admin: 12/16/18 10:18 Dose: 5 mg Aspirin (Aspirin Chewable) 81 mg PO DAILY [facility] Last Admin: 12/16/18 10:18 Dose: 81 mg Belladonna/Phenobarbital () 1 tab PO TID [facility] Last Admin: 12/16/18 17:37 Dose: 1 tab Bisacodyl (Dulcolax) 10 mg [place] ONCE PRN PRN Reason: Constipation Budesonide (Pulmicort Respules) 0.25 mg INH RQ12 [facility] Last Admin: 12/17/18 08:05 Dose: 0.25 mg Clotrimazole (Mycelex Reilly) 10 mg MT 5XD [facility] Last Admin: 12/16/18 22:09 Dose: 10 mg Emollient Ointment (Vaseline Oint) 5 gm TOP Q4H PRN PRN Reason: DRY LIPS Last Admin: 12/16/18 16:27 Dose: 5 gm Famotidine (Pepcid) 20 mg PO 1000 [facility] Last Admin: 12/16/18 10:18 Dose: 20 mg Ferrous Gluconate (Fergon) 324 mg PO DAILY [facility] Last Admin: 12/16/18 10:18 Dose: 324 mg Furosemide (Lasix) 20 mg IVP DAILY [facility] Last Admin: 12/16/18 10:19 Dose: 20 mg Gabapentin (Neurontin) 300 mg PO TID [facility] Last Admin: 12/16/18 17:37 Dose: 300 mg Guaifenesin (Robitussin) 100 mg PO Q4H PRN PRN Reason: Cough Last Admin: 12/17/18 05:09 Dose: 100 mg Fluconazole (Diflucan Iv 200 Mg/100 Ml Ns) 100 mls @ 100 mls/hr IVPB Q24H [facility]; Protocol Last Admin: 12/16/18 17:38 Dose: 100 mls/hr Insulin Detemir (Levemir) 25 unit SC Q12 [facility] Last Admin: 12/16/18 22:11 Dose: 25 units Insulin Human Regular (Novolin R) 0 unit SC ACHS [facility]; Protocol Last Admin: 12/17/18 08:11 Dose: Not Given Lactobacillus Acidophilus (Lactobacillus) 1 cap PO BID [facility] Last Admin: 12/16/18 17:38 Dose: 1 cap Methylprednisolone (Medrol) 4 mg PO BID [facility] Metoprolol Tartrate (Lopressor) 25 mg PO BID [facility] Last Admin: 12/16/18 17:39 Dose: 25 mg Montelukast Sodium (Singulair) 10 mg PO HS [facility] Last Admin: 12/16/18 22:10 Dose: 10 mg Multivitamins (Hexavitamin) 1 tab PO DAILY [facility] Last Admin: 12/16/18 10:19 Dose: 1 tab Oxycodone/Acetaminophen (Percocet 5/325 Mg Tab) 1 tab PO Q4H PRN PRN Reason: Pain, moderate (4-7) Stop: 12/17/18 23:04 Last Admin: 12/17/18 05:08 Dose: 1 tab - Labs Labs: 12/14/18 11:45 12/14/18 11:45 PT 18.6 SECONDS (9.7-12.2) H 11/30/18 09:35 INR 1.7 11/30/18 09:35 APTT 40 SECONDS (21-34) H 11/30/18 09:35 - Constitutional Appears: In Acute Distress - Head Exam Head Exam: ATRAUMATIC - Eye Exam Eye Exam: Normal appearance Additional comments: cataract - ENT Exam ENT Exam: Normal Exam - Neck Exam Neck Exam: Full ROM - Respiratory Exam Respiratory Exam: Decreased Breath Sounds, Rales, Wheezes - Cardiovascular Exam Cardiovascular Exam: REGULAR RHYTHM - GI/Abdominal Exam GI & Abdominal Exam: Normal Bowel Sounds - Extremities Exam Extremities Exam: Normal Inspection - Back Exam Back Exam: NORMAL INSPECTION - Neurological Exam Neurological Exam: Alert, Awake, Oriented x3 - Psychiatric Exam Psychiatric exam: Normal Mood - Skin Skin Exam: Pallor Assessment and Plan - Assessment and Plan (Free Text) Assessment: copd lung cancer generalised weekness dmid hiv Plan: need rehab
[2018-12-17] MEDS ORDERED: Multiple Vitamins Tab PO SCH (10:11)
[2018-12-17] MEDS: Belladonna-Phenobarbital PO SCH ×4 (10:31→18:11)
[2018-12-17] MEDS: Lactobacillus Acidophilus 500 MU Cap PO SCH ×3 (10:31→18:11)
[2018-12-17] MEDS: LIPASE/PROTEASE/AMYLASE 4,200 U ECC PO SCH ×3 (10:32→17:25)
[2018-12-17] MEDS: Multiple Vitamins Tab PO SCH (10:32)
[2018-12-17] MEDS: Insulin Detemir 100 units/ml Vial (Levemir) SC SCH ×2 (10:48→21:26)
--- NOTE | 2018-12-17 11:46 | PN ---
DATE: 12/17/2018 LOCATION: 652, bed A. SUBJECTIVE: This 63-year-old male seen and examined early in rounds without significant reported clinical changes, still in a status of DNR and DNI. The patient has intermittent period of productive cough with mild shortness of breath but no reported GI bleeding, actual chest pain, significant palpitation. The entire chart is reviewed including but not limited to the most recent lab and radiology study results and yesterday blood glucose level measured to be 233. PHYSICAL EXAMINATION: GENERAL: A 63-year-old male. VITAL SIGNS: Afebrile with pulse of 86, respiratory rate 20 to 22, blood pressure of 114/76. HEENT: Showed pale, dry oral mucous membrane. Nonicteric sclerae. LUNGS: Few scattered crepitation. Decreased air entry at bases. HEART: Positive S1 and S2. ABDOMEN: Soft with mild generalized distention. No mass or organomegaly. No rebound tenderness or guarding. EXTREMITIES: With mild lower extremity edematous changes. No clubbing or cyanosis. NEUROLOGIC: No reported new neurological deficits, sensory or motor. IMPRESSION: 1. Exacerbation of peptic ulcer disease. 2. Reported history of recent diagnosis of lung carcinoma. 3. Chronic obstructive pulmonary disease, pneumonia. 4. Anemia, secondary to above. 5. Known history of human immunodeficiency virus. SUGGESTIONS: 1. Continue medical management. 2. No further aggressive GI workup in the meantime. 3. Peripheral hyperalimentation. 4. Further recommendation to follow. Sarai Reynolds MD
--- NOTE | 2018-12-17 11:49 | CP.PCM.PCO ---
Physician Communication Note - Physician Communication Note Physician Communication Note: House doctor called to evaluate patient due to SOB.
[2018-12-17] MEDS: Petrolatum Oint Foilpak (5 gm) TOP PRN (13:48)
[2018-12-17] MEDS: Ipratropium 0.02% Inhal Soln (0.5 mg/2.5 ml) UD IH SCH ×3 (16:15→19:49)
[2018-12-17] MEDS ORDERED: Glucagon Recombinant 1 mg Inj IM PRN (16:38)
[2018-12-17] MEDS: Dextrose 50% SYRINGE Inj (50 ml) IV PRN (16:41)
[2018-12-17] MEDS: Cefepime IV 2 gm in Dextrose 2 GM/100 ML BAG IVPB SCH (17:00)
--- NOTE | 2018-12-17 17:20 | CP.PCM.PCO ---
Physician Communication Note - Physician Communication Note Physician Communication Note: House doctor called for hypoglycemia Assessment/Plan (1) Hypoglycemia Assessment and plan: Patient's sugar was found to be 20. Patient was given 1 amp of D50. Patient was given juice. Hypoglycemia protocol was ordered. Patient was awake and alert at bedside. 20 minutes later blood sugar was measured to be 150. Patient was eating dinner at bedside. Current Visit: Yes Status: Acute
[2018-12-17] MEDS: Fluconazole IV 200mg/100 ml NS 100 ML IVPB SCH (18:10)
--- NOTE | 2018-12-17 20:20 | CP.PCM.PN ---
Subjective - Date & Time of Evaluation Date of Evaluation: 12/16/18 Time of Evaluation: 15:00 - Subjective Subjective: No complaints. Objective - Vital Signs/Intake and Output Vital Signs (last 24 hours): Temp Pulse Resp BP Pulse Ox 98.0 F 94 H 20 142/78 100 12/17/18 15:00 12/17/18 19:50 12/17/18 15:00 12/17/18 18:10 12/17/18 15:00 - Medications Medications: Current Medications Albuterol/Ipratropium (Duoneb 3 Mg/0.5 Mg (3 Ml) Ud) 3 ml INH RQ4 [facility] Last Admin: 12/17/18 11:39 Dose: 3 ml Alprazolam (Xanax) 0.25 mg PO Q8H PRN PRN Reason: Anxiety Stop: 12/21/18 18:01 Amlodipine Besylate (Norvasc) 5 mg PO DAILY [facility] Last Admin: 12/17/18 10:48 Dose: Not Given Aspirin (Aspirin Chewable) 81 mg PO DAILY [facility] Last Admin: 12/17/18 11:10 Dose: Not Given Belladonna/Phenobarbital () 1 tab PO TID [facility] Last Admin: 12/17/18 18:11 Dose: 1 tab Bisacodyl (Dulcolax) 10 mg [place] ONCE PRN PRN Reason: Constipation Budesonide (Pulmicort Respules) 0.25 mg INH RQ12 [facility] Last Admin: 12/17/18 19:50 Dose: 0.25 mg Clotrimazole (Mycelex Reilly) 10 mg MT 5XD [facility] Last Admin: 12/17/18 18:00 Dose: 10 mg Dextrose (Dextrose 50% Inj) 0 ml IV STAT PRN; Protocol PRN Reason: Hypoglycemia Protocol Last Admin: 12/17/18 16:41 Dose: 50 ml Dextrose (Glutose 15) 0 gm PO ONCE PRN; Protocol PRN Reason: Hypoglycemia Protocol Emollient Ointment (Vaseline Oint) 5 gm TOP Q4H PRN PRN Reason: DRY LIPS Last Admin: 12/17/18 13:48 Dose: 5 gm Famotidine (Pepcid) 20 mg PO 1000 [facility] Last Admin: 12/17/18 10:31 Dose: 20 mg Ferrous Gluconate (Fergon) 324 mg PO DAILY [facility] Furosemide (Lasix) 20 mg IVP DAILY [facility] Last Admin: 12/17/18 10:30 Dose: 20 mg Gabapentin (Neurontin) 300 mg PO TID [facility] Last Admin: 12/17/18 18:12 Dose: 300 mg Glucagon (Glucagen Diagnostic Kit) 0 mg IM STAT PRN; Protocol PRN Reason: Hypoglycemia Protocol Guaifenesin (Robitussin) 100 mg PO Q4H PRN PRN Reason: Cough Last Admin: 12/17/18 05:09 Dose: 100 mg Fluconazole (Diflucan Iv 200 Mg/100 Ml Ns) 100 mls @ 100 mls/hr IVPB Q24H [facility]; Protocol Last Admin: 12/17/18 18:10 Dose: 100 mls/hr Cefepime HCl (Maxipime Iv 2 Gm Premix) 2 gm in 100 mls @ 200 mls/hr IVPB Q8H [facility]; Protocol Stop: 12/22/18 17:01 Last Admin: 12/17/18 17:00 Dose: 200 mls/hr Dextrose (Dextrose 5% In Water 1000 Ml) 1,000 mls @ 0 mls/hr IV .Q0M PRN; Protocol PRN Reason: Hypoglycemia Protocol Insulin Detemir (Levemir) 25 unit SC Q12 [facility] Last Admin: 12/17/18 10:48 Dose: Not Given Insulin Human Regular (Novolin R) 0 unit SC ACHS [facility]; Protocol Last Admin: 12/17/18 16:44 Dose: Not Given Ipratropium [place] (Atrovent) 0.5 mg IH RQ4 [facility] Last Admin: 12/17/18 19:49 Dose: 0.5 mg Lactobacillus Acidophilus (Lactobacillus) 1 cap PO BID [facility] Last Admin: 12/17/18 18:11 Dose: 1 cap Methylprednisolone (Medrol) 4 mg PO BID [facility] Last Admin: 12/17/18 18:11 Dose: 4 mg Metoprolol Tartrate (Lopressor) 25 mg PO BID [facility] Last Admin: 12/17/18 18:10 Dose: 25 mg Montelukast Sodium (Singulair) 10 mg PO HS [facility] Last Admin: 12/16/18 22:10 Dose: 10 mg Multivitamins (Hexavitamin) 1 tab PO DAILY [facility] Oxycodone/Acetaminophen (Percocet 5/325 Mg Tab) 1 tab PO Q4H PRN PRN Reason: Pain, moderate (4-7) Stop: 12/17/18 23:04 Last Admin: 12/17/18 05:08 Dose: 1 tab - Labs Labs: 12/14/18 11:45 12/14/18 11:45 PT 18.6 SECONDS (9.7-12.2) H 11/30/18 09:35 INR 1.7 11/30/18 09:35 APTT 40 SECONDS (21-34) H 11/30/18 09:35 - Head Exam Head Exam: ATRAUMATIC - Eye Exam Eye Exam: Normal appearance - ENT Exam ENT Exam: Mucous Membranes Dry - Respiratory Exam Respiratory Exam: NORMAL BREATHING PATTERN - Cardiovascular Exam Cardiovascular Exam: +S1, +S2 - GI/Abdominal Exam GI & Abdominal Exam: Normal Bowel Sounds Assessment and Plan (1) Leukocytosis Assessment & Plan: on antifungal, and steroids. 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
--- NOTE | 2018-12-17 20:21 | CP.PCM.PN ---
Subjective - Date & Time of Evaluation Date of Evaluation: 12/17/18 Time of Evaluation: 18:00 - Subjective Subjective: Seen on bipap Objective - Vital Signs/Intake and Output Vital Signs (last 24 hours): Temp Pulse Resp BP Pulse Ox 98.0 F 94 H 20 142/78 100 12/17/18 15:00 12/17/18 19:50 12/17/18 15:00 12/17/18 18:10 12/17/18 15:00 - Medications Medications: Current Medications Albuterol/Ipratropium (Duoneb 3 Mg/0.5 Mg (3 Ml) Ud) 3 ml INH RQ4 [facility] Last Admin: 12/17/18 11:39 Dose: 3 ml Alprazolam (Xanax) 0.25 mg PO Q8H PRN PRN Reason: Anxiety Stop: 12/21/18 18:01 Amlodipine Besylate (Norvasc) 5 mg PO DAILY [facility] Last Admin: 12/17/18 10:48 Dose: Not Given Aspirin (Aspirin Chewable) 81 mg PO DAILY [facility] Last Admin: 12/17/18 11:10 Dose: Not Given Belladonna/Phenobarbital () 1 tab PO TID [facility] Last Admin: 12/17/18 18:11 Dose: 1 tab Bisacodyl (Dulcolax) 10 mg [place] ONCE PRN PRN Reason: Constipation Budesonide (Pulmicort Respules) 0.25 mg INH RQ12 [facility] Last Admin: 12/17/18 19:50 Dose: 0.25 mg Clotrimazole (Mycelex Reilly) 10 mg MT 5XD [facility] Last Admin: 12/17/18 18:00 Dose: 10 mg Dextrose (Dextrose 50% Inj) 0 ml IV STAT PRN; Protocol PRN Reason: Hypoglycemia Protocol Last Admin: 12/17/18 16:41 Dose: 50 ml Dextrose (Glutose 15) 0 gm PO ONCE PRN; Protocol PRN Reason: Hypoglycemia Protocol Emollient Ointment (Vaseline Oint) 5 gm TOP Q4H PRN PRN Reason: DRY LIPS Last Admin: 12/17/18 13:48 Dose: 5 gm Famotidine (Pepcid) 20 mg PO 1000 [facility] Last Admin: 12/17/18 10:31 Dose: 20 mg Ferrous Gluconate (Fergon) 324 mg PO DAILY [facility] Furosemide (Lasix) 20 mg IVP DAILY [facility] Last Admin: 12/17/18 10:30 Dose: 20 mg Gabapentin (Neurontin) 300 mg PO TID [facility] Last Admin: 12/17/18 18:12 Dose: 300 mg Glucagon (Glucagen Diagnostic Kit) 0 mg IM STAT PRN; Protocol PRN Reason: Hypoglycemia Protocol Guaifenesin (Robitussin) 100 mg PO Q4H PRN PRN Reason: Cough Last Admin: 12/17/18 05:09 Dose: 100 mg Fluconazole (Diflucan Iv 200 Mg/100 Ml Ns) 100 mls @ 100 mls/hr IVPB Q24H [facility]; Protocol Last Admin: 12/17/18 18:10 Dose: 100 mls/hr Cefepime HCl (Maxipime Iv 2 Gm Premix) 2 gm in 100 mls @ 200 mls/hr IVPB Q8H [facility]; Protocol Stop: 12/22/18 17:01 Last Admin: 12/17/18 17:00 Dose: 200 mls/hr Dextrose (Dextrose 5% In Water 1000 Ml) 1,000 mls @ 0 mls/hr IV .Q0M PRN; Protocol PRN Reason: Hypoglycemia Protocol Insulin Detemir (Levemir) 25 unit SC Q12 [facility] Last Admin: 12/17/18 10:48 Dose: Not Given Insulin Human Regular (Novolin R) 0 unit SC ACHS [facility]; Protocol Last Admin: 12/17/18 16:44 Dose: Not Given Ipratropium [place] (Atrovent) 0.5 mg IH RQ4 [facility] Last Admin: 12/17/18 19:49 Dose: 0.5 mg Lactobacillus Acidophilus (Lactobacillus) 1 cap PO BID [facility] Last Admin: 12/17/18 18:11 Dose: 1 cap Methylprednisolone (Medrol) 4 mg PO BID [facility] Last Admin: 12/17/18 18:11 Dose: 4 mg Metoprolol Tartrate (Lopressor) 25 mg PO BID [facility] Last Admin: 12/17/18 18:10 Dose: 25 mg Montelukast Sodium (Singulair) 10 mg PO HS [facility] Last Admin: 12/16/18 22:10 Dose: 10 mg Multivitamins (Hexavitamin) 1 tab PO DAILY [facility] Oxycodone/Acetaminophen (Percocet 5/325 Mg Tab) 1 tab PO Q4H PRN PRN Reason: Pain, moderate (4-7) Stop: 12/17/18 23:04 Last Admin: 12/17/18 05:08 Dose: 1 tab - Labs Labs: 12/14/18 11:45 12/14/18 11:45 PT 18.6 SECONDS (9.7-12.2) H 11/30/18 09:35 INR 1.7 11/30/18 09:35 APTT 40 SECONDS (21-34) H 11/30/18 09:35 - Head Exam Head Exam: ATRAUMATIC - Eye Exam Eye Exam: Normal appearance - ENT Exam ENT Exam: Mucous Membranes Dry - Respiratory Exam Respiratory Exam: NORMAL BREATHING PATTERN - Cardiovascular Exam Cardiovascular Exam: +S1, +S2 - GI/Abdominal Exam GI & Abdominal Exam: Normal Bowel Sounds Assessment and Plan (1) Leukocytosis Assessment & Plan: on antifungal, and steroids. 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
--- NOTE | 2018-12-17 22:31 | CP.PCM.PN ---
Subjective - Date & Time of Evaluation Date of Evaluation: 12/17/18 Time of Evaluation: 07:00 - Subjective Subjective: doing poorly BiPap in progress' IV antibiotics restarted Objective - Vital Signs/Intake and Output Vital Signs (last 24 hours): Temp Pulse Resp BP Pulse Ox 98.0 F 94 H 20 142/78 100 12/17/18 15:00 12/17/18 19:50 12/17/18 15:00 12/17/18 18:10 12/17/18 15:00 - Medications Medications: Current Medications Albuterol/Ipratropium (Duoneb 3 Mg/0.5 Mg (3 Ml) Ud) 3 ml INH RQ4 [facility] Last Admin: 12/17/18 11:39 Dose: 3 ml Alprazolam (Xanax) 0.25 mg PO Q8H PRN PRN Reason: Anxiety Stop: 12/21/18 18:01 Amlodipine Besylate (Norvasc) 5 mg PO DAILY [facility] Last Admin: 12/17/18 10:48 Dose: Not Given Aspirin (Aspirin Chewable) 81 mg PO DAILY [facility] Last Admin: 12/17/18 11:10 Dose: Not Given Belladonna/Phenobarbital () 1 tab PO TID [facility] Last Admin: 12/17/18 18:11 Dose: 1 tab Bisacodyl (Dulcolax) 10 mg [place] ONCE PRN PRN Reason: Constipation Budesonide (Pulmicort Respules) 0.25 mg INH RQ12 [facility] Last Admin: 12/17/18 19:50 Dose: 0.25 mg Clotrimazole (Mycelex Reilly) 10 mg MT 5XD [facility]PL[facility] Last Admin: 12/17/18 21:26 Dose: Not Given Dextrose (Dextrose 50% Inj) 0 ml IV STAT PRN; Protocol PRN Reason: Hypoglycemia Protocol Last Admin: 12/17/18 16:41 Dose: 50 ml Dextrose (Glutose 15) 0 gm PO ONCE PRN; Protocol PRN Reason: Hypoglycemia Protocol Emollient Ointment (Vaseline Oint) 5 gm TOP Q4H PRN PRN Reason: DRY LIPS Last Admin: 12/17/18 13:48 Dose: 5 gm Famotidine (Pepcid) 20 mg PO 1000 [facility] Last Admin: 12/17/18 10:31 Dose: 20 mg Ferrous Gluconate (Fergon) 324 mg PO DAILY [facility] Furosemide (Lasix) 20 mg IVP DAILY [facility] Last Admin: 12/17/18 10:30 Dose: 20 mg Gabapentin (Neurontin) 300 mg PO TID [facility] Last Admin: 12/17/18 18:12 Dose: 300 mg Glucagon (Glucagen Diagnostic Kit) 0 mg IM STAT PRN; Protocol PRN Reason: Hypoglycemia Protocol Guaifenesin (Robitussin) 100 mg PO Q4H PRN PRN Reason: Cough Last Admin: 12/17/18 05:09 Dose: 100 mg Fluconazole (Diflucan Iv 200 Mg/100 Ml Ns) 100 mls @ 100 mls/hr IVPB Q24H [facility]; Protocol Last Admin: 12/17/18 18:10 Dose: 100 mls/hr Cefepime HCl (Maxipime Iv 2 Gm Premix) 2 gm in 100 mls @ 200 mls/hr IVPB Q8H [facility]; Protocol Stop: 12/22/18 17:01 Last Admin: 12/17/18 17:00 Dose: 200 mls/hr Dextrose (Dextrose 5% In Water 1000 Ml) 1,000 mls @ 0 mls/hr IV .Q0M PRN; Protocol PRN Reason: Hypoglycemia Protocol Insulin Detemir (Levemir) 25 unit SC Q12 [facility] Last Admin: 12/17/18 21:26 Dose: Not Given Insulin Human Regular (Novolin R) 0 unit SC ACHS [facility]PL[facility]; Protocol Last Admin: 12/17/18 21:26 Dose: Not Given Ipratropium [place] (Atrovent) 0.5 mg IH RQ4 [facility] Last Admin: 12/17/18 19:49 Dose: 0.5 mg Lactobacillus Acidophilus (Lactobacillus) 1 cap PO BID [facility] Last Admin: 12/17/18 18:11 Dose: 1 cap Methylprednisolone (Medrol) 4 mg PO BID [facility] Last Admin: 12/17/18 18:11 Dose: 4 mg Metoprolol Tartrate (Lopressor) 25 mg PO BID [facility] Last Admin: 12/17/18 18:10 Dose: 25 mg Montelukast Sodium (Singulair) 10 mg PO HS [facility] Last Admin: 12/17/18 21:27 Dose: Not Given Multivitamins (Hexavitamin) 1 tab PO DAILY [facility] Oxycodone/Acetaminophen (Percocet 5/325 Mg Tab) 1 tab PO Q4H PRN PRN Reason: Pain, moderate (4-7) Stop: 12/17/18 23:04 Last Admin: 12/17/18 05:08 Dose: 1 tab - Labs Labs: 12/14/18 11:45 12/14/18 11:45 PT 18.6 SECONDS (9.7-12.2) H 11/30/18 09:35 INR 1.7 11/30/18 09:35 APTT 40 SECONDS (21-34) H 11/30/18 09:35 - Constitutional Appears: Toxic, Cachectic, Chronically Ill - Head Exam Head Exam: NORMOCEPHALIC (x) - Eye Exam Eye Exam: Scleral icterus - ENT Exam ENT Exam: Mucous Membranes Dry (x) - Neck Exam Neck Exam: absent: Lymphadenopathy - Respiratory Exam Respiratory Exam: Decreased Breath Sounds, Prolonged Expiratory Phase, Rales, Rhonchi - Cardiovascular Exam Cardiovascular Exam: REGULAR RHYTHM, +S1, +S2 - GI/Abdominal Exam GI & Abdominal Exam: Distended, Soft - Rectal Exam Rectal Exam: Deferred - Exam Exam: NORMAL INSPECTION - Extremities Exam Extremities Exam: absent: Pedal Edema - Back Exam Back Exam: absent: CVA tenderness (L), CVA tenderness (R) - Neurological Exam Neurological Exam: Alert, Awake, CN II-XII Intact Assessment and Plan (1) COPD exacerbation Status: Acute (2) Dyspnea Status: Acute (3) Sepsis Status: Acute (4) ARF (acute renal failure) Status: Acute (5) HIV (human immunodeficiency virus infection) Status: Acute - Assessment and Plan (Free Text) Assessment: cont IV antibiiotics poor prognosis
[2018-12-18] MEDS: Cefepime IV 2 gm in Dextrose 2 GM/100 ML BAG IVPB SCH ×2 (00:16→08:39)
[2018-12-18] MEDS: Ipratropium 0.02% Inhal Soln (0.5 mg/2.5 ml) UD IH SCH ×6 (00:43→16:00)
[2018-12-18] MEDS: guaiFENesin 100 mg/5 ml Syrup UD PO PRN (02:28)
[2018-12-18] MEDS: Budesonide 0.25 mg/2 ml Inhal Susp UD INH SCH (08:00)
[2018-12-18 08:17] LABS: EOS % 0.1 % (0.0-4.0); MEAN CORPUSCULAR HEMOGLOBIN 26.7 pg (27.0-31.0)
--- NOTE | 2018-12-18 08:21 | CP.PCM.PN ---
Subjective - Date & Time of Evaluation Date of Evaluation: 12/18/18 Time of Evaluation: : - Subjective Subjective: Pulm Consult Patient seen and examined at bedside. He states he remains slightly short of breath with productive cough but otherwise feels okay. Denies fatigue or bloody stool today. Patient had a hypoxic episode over the weekend. Was treated with BiPAP. Returned to baseline. Patient also had a hypoglycemic episode over the weekend. POC glucose 20. patient was managed appropriately. Patient admits to cough but denies any other complaints. ROS: as listed in HPI otherwise reviewed and negative Objective - Vital Signs/Intake and Output Vital Signs (last 24 hours): Temp Pulse Resp BP Pulse Ox 98.0 F 99 H 18 120/76 97 12/18/18 07:25 12/18/18 08:02 12/18/18 07:25 12/18/18 07:25 12/18/18 07:25 - Medications Medications: Current Medications Albuterol/Ipratropium (Duoneb 3 Mg/0.5 Mg (3 Ml) Ud) 3 ml INH RQ4 [facility] Last Admin: 12/17/18 11:39 Dose: 3 ml Alprazolam (Xanax) 0.25 mg PO Q8H PRN PRN Reason: Anxiety Stop: 12/21/18 18:01 Amlodipine Besylate (Norvasc) 5 mg PO DAILY [facility] Last Admin: 12/17/18 10:48 Dose: Not Given Aspirin (Aspirin Chewable) 81 mg PO DAILY [facility] Last Admin: 12/17/18 11:10 Dose: Not Given Belladonna/Phenobarbital () 1 tab PO TID [facility] Last Admin: 12/17/18 18:11 Dose: 1 tab Bisacodyl (Dulcolax) 10 mg [place] ONCE PRN PRN Reason: Constipation Budesonide (Pulmicort Respules) 0.25 mg INH RQ12 [facility] Last Admin: 12/18/18 08:00 Dose: 0.25 mg Clotrimazole (Mycelex Reilly) 10 mg MT 5XD [facility] Last Admin: 12/17/18 21:26 Dose: Not Given Dextrose (Dextrose 50% Inj) 0 ml IV STAT PRN; Protocol PRN Reason: Hypoglycemia Protocol Last Admin: 12/17/18 16:41 Dose: 50 ml Dextrose (Glutose 15) 0 gm PO ONCE PRN; Protocol PRN Reason: Hypoglycemia Protocol Emollient Ointment (Vaseline Oint) 5 gm TOP Q4H PRN PRN Reason: DRY LIPS Last Admin: 12/17/18 13:48 Dose: 5 gm Famotidine (Pepcid) 20 mg PO 1000 [facility] Last Admin: 12/17/18 10:31 Dose: 20 mg Ferrous Gluconate (Fergon) 324 mg PO DAILY [facility] Furosemide (Lasix) 20 mg IVP DAILY [facility] Last Admin: 12/17/18 10:30 Dose: 20 mg Gabapentin (Neurontin) 300 mg PO TID [facility] Last Admin: 12/17/18 18:12 Dose: 300 mg Glucagon (Glucagen Diagnostic Kit) 0 mg IM STAT PRN; Protocol PRN Reason: Hypoglycemia Protocol Guaifenesin (Robitussin) 100 mg PO Q4H PRN PRN Reason: Cough Last Admin: 12/18/18 02:28 Dose: 100 mg Fluconazole (Diflucan Iv 200 Mg/100 Ml Ns) 100 mls @ 100 mls/hr IVPB Q24H [facility]; Protocol Last Admin: 12/17/18 18:10 Dose: 100 mls/hr Cefepime HCl (Maxipime Iv 2 Gm Premix) 2 gm in 100 mls @ 200 mls/hr IVPB Q8H [facility]; Protocol Stop: 12/22/18 17:01 Last Admin: 12/18/18 00:16 Dose: 200 mls/hr Dextrose (Dextrose 5% In Water 1000 Ml) 1,000 mls @ 0 mls/hr IV .Q0M PRN; Protocol PRN Reason: Hypoglycemia Protocol Insulin Detemir (Levemir) 25 unit SC Q12 [facility] Last Admin: 12/17/18 21:26 Dose: Not Given Insulin Human Regular (Novolin R) 0 unit SC ACHS [facility]; Protocol Last Admin: 12/17/18 21:26 Dose: Not Given Ipratropium [place] (Atrovent) 0.5 mg IH RQ4 [facility] Last Admin: 12/18/18 08:00 Dose: 0.5 mg Lactobacillus Acidophilus (Lactobacillus) 1 cap PO BID [facility] Last Admin: 12/17/18 18:11 Dose: 1 cap Methylprednisolone (Medrol) 4 mg PO BID [facility] Last Admin: 12/17/18 18:11 Dose: 4 mg Metoprolol Tartrate (Lopressor) 25 mg PO BID [facility] Last Admin: 12/17/18 18:10 Dose: 25 mg Montelukast Sodium (Singulair) 10 mg PO HS [facility] Last Admin: 12/17/18 21:27 Dose: Not Given Multivitamins (Hexavitamin) 1 tab PO DAILY [facility] - Labs Labs: 12/14/18 11:45 12/14/18 11:45 PT 18.6 SECONDS (9.7-12.2) H 11/30/18 09:35 INR 1.7 11/30/18 09:35 APTT 40 SECONDS (21-34) H 11/30/18 09:35 - Constitutional Appears: Chronically Ill - Head Exam Head Exam: ATRAUMATIC, NORMOCEPHALIC - Eye Exam Eye Exam: Normal appearance - ENT Exam ENT Exam: Mucous Membranes Moist - Respiratory Exam Respiratory Exam: Decreased Breath Sounds, Rales, NORMAL BREATHING PATTERN - Cardiovascular Exam Cardiovascular Exam: REGULAR RHYTHM, +S1, +S2 - GI/Abdominal Exam GI & Abdominal Exam: Soft, Normal Bowel Sounds - Extremities Exam Extremities Exam: Normal Inspection. absent: Pedal Edema - Psychiatric Exam Psychiatric exam: Anxious - Skin Skin Exam: Dry, Warm Assessment and Plan - Assessment and Plan (Free Text) Assessment: 63 year old male with PMH of COPD exacerbations, lung cancer, HIV, HTN, DM, Hep C, Chronic Pancreatitis, admitted for worsening shortness of breath. Patient DNR/DNI Plan: 1. COPD exacerbation Hx of lung cancer leukocytosis Continue pulmicort, singulair, IV steriods for COPD BiPAP as needed IV abx and antifungal, further infectious management per ID/primary team Continue Robitussin Poor prognosis 2. Anemia no active bleed GI recommended no aggressive treatment until patient stabilizes
[2018-12-18 08:24] LABS: BASO % 0.1 % (0.0-2.0); HEMOGLOBIN 7.9 g/dL (12.0-18.0); LYMPH # 1.5 K/uL (1.0-4.3); LYMPH % 5.9 % (20.0-40.0); MEAN CELL VOLUME 84.2 fL (80.0-94.0); MEAN CORPUSCULAR HGB CONC 31.7 g/dL (33.0-37.0); MEAN PLATELET VOLUME 8.8 fL (7.2-11.7); MONO # 0.9 K/uL (0.0-0.8); MONO % 3.6 % (0.0-10.0); NEUT % 90.3 % (50.0-75.0); NRBC % 0.4 % (0.0-2.0); PLATELET COUNT 422 K/uL (130-400); RBC 2.97 Mil/uL (4.40-5.90); RED CELL DISTRIBUTION WIDTH 16.2 % (11.5-14.5); WHITE BLOOD COUNT 25.4 K/uL (4.8-10.8)
[2018-12-18] MEDS: LIPASE/PROTEASE/AMYLASE 4,200 U ECC PO SCH ×2 (08:40→13:00)
[2018-12-18] MEDS: (Novolin R) Insulin Human Regular 100 units/ml vial SC SCH ×2 (08:48→11:45)
[2018-12-18 08:53] LABS: ALB/GLOB RATIO 0.8 (1.0-2.1); ALT/SGPT 12 U/L (21-72); AST/SGOT 23 U/L (17-59); BLOOD UREA NITROGEN 20 mg/dL (9-20); CALCIUM 8.5 mg/dl (8.6-10.4); GFR NON-AFRICAN AMERICAN > 60
[2018-12-18] MEDS: Lactobacillus Acidophilus 500 MU Cap PO SCH (10:02)
[2018-12-18] MEDS: Belladonna-Phenobarbital PO SCH ×2 (10:02→14:48)
[2018-12-18] MEDS: Insulin Detemir 100 units/ml Vial (Levemir) SC SCH (10:05)
[2018-12-18 10:28] LABS: EOSINOPHIL 1 % (0-4); LYMPHOCYTE 3 % (20-40); MONOCYTE 2 % (0-10); NEUTROPHIL 94 % (50-75); TOTAL CELLS COUNTED 100
[2018-12-18 10:29] LABS: ANISOCYTOSIS SLIGHT; HYPOCHROMIC SLIGHT; PLATELET ESTIMATE SLIGHTLY INCREASED (NORMAL)
[2018-12-18] MEDS: Dextrose 50% SYRINGE Inj (50 ml) IV PRN (12:18)
--- NOTE | 2018-12-18 16:13 | CP.PCM.PN ---
Subjective - Date & Time of Evaluation Date of Evaluation: 12/18/18 Time of Evaluation: 16:11 - Subjective Subjective: sob no distress cough on and off will leave to rehab today Objective - Vital Signs/Intake and Output Vital Signs (last 24 hours): Temp Pulse Resp BP Pulse Ox 98.0 F 99 H 18 120/67 97 12/18/18 07:25 12/18/18 08:02 12/18/18 07:25 12/18/18 10:04 12/18/18 07:25 - Medications Medications: Current Medications Albuterol/Ipratropium (Duoneb 3 Mg/0.5 Mg (3 Ml) Ud) 3 ml INH RQ4 [facility] Last Admin: 12/17/18 11:39 Dose: 3 ml Alprazolam (Xanax) 0.25 mg PO Q8H PRN PRN Reason: Anxiety Stop: 12/21/18 18:01 Amlodipine Besylate (Norvasc) 5 mg PO DAILY [facility] Last Admin: 12/18/18 10:02 Dose: 5 mg Aspirin (Aspirin Chewable) 81 mg PO DAILY [facility] Last Admin: 12/18/18 10:02 Dose: 81 mg Belladonna/Phenobarbital () 1 tab PO TID [facility] Last Admin: 12/18/18 14:48 Dose: 1 tab Bisacodyl (Dulcolax) 10 mg [place] ONCE PRN PRN Reason: Constipation Budesonide (Pulmicort Respules) 0.25 mg INH RQ12 [facility] Last Admin: 12/18/18 08:00 Dose: 0.25 mg Clotrimazole (Mycelex Reilly) 10 mg MT 5XD [facility] Last Admin: 12/18/18 14:48 Dose: 10 mg Dextrose (Dextrose 50% Inj) 0 ml IV STAT PRN; Protocol PRN Reason: Hypoglycemia Protocol Last Admin: 12/18/18 12:18 Dose: 50 ml Dextrose (Glutose 15) 0 gm PO ONCE PRN; Protocol PRN Reason: Hypoglycemia Protocol Last Admin: 12/18/18 11:50 Dose: 15 gm Emollient Ointment (Vaseline Oint) 5 gm TOP Q4H PRN PRN Reason: DRY LIPS Last Admin: 12/17/18 13:48 Dose: 5 gm Famotidine (Pepcid) 20 mg PO 1000 [facility] Last Admin: 12/18/18 10:03 Dose: 20 mg Ferrous Gluconate (Fergon) 324 mg PO DAILY [facility] Last Admin: 12/18/18 10:03 Dose: 324 mg Furosemide (Lasix) 20 mg IVP DAILY [facility] Last Admin: 12/18/18 10:04 Dose: 20 mg Gabapentin (Neurontin) 300 mg PO TID [facility] Last Admin: 12/18/18 14:46 Dose: 300 mg Glucagon (Glucagen Diagnostic Kit) 0 mg IM STAT PRN; Protocol PRN Reason: Hypoglycemia Protocol Guaifenesin (Robitussin) 100 mg PO Q4H PRN PRN Reason: Cough Last Admin: 12/18/18 02:28 Dose: 100 mg Fluconazole (Diflucan Iv 200 Mg/100 Ml Ns) 100 mls @ 100 mls/hr IVPB Q24H [facility]; Protocol Last Admin: 12/17/18 18:10 Dose: 100 mls/hr Cefepime HCl (Maxipime Iv 2 Gm Premix) 2 gm in 100 mls @ 200 mls/hr IVPB Q8H [facility]; Protocol Stop: 12/22/18 17:01 Last Admin: 12/18/18 08:39 Dose: 200 mls/hr Dextrose (Dextrose 5% In Water 1000 Ml) 1,000 mls @ 0 mls/hr IV .Q0M PRN; Protocol PRN Reason: Hypoglycemia Protocol Insulin Detemir (Levemir) 25 unit SC Q12 [facility] Last Admin: 12/18/18 10:05 Dose: 25 units Insulin Human Regular (Novolin R) 0 unit SC ACHS [facility]; Protocol Last Admin: 12/18/18 11:45 Dose: Not Given Ipratropium [place] (Atrovent) 0.5 mg IH RQ4 [facility] Last Admin: 12/18/18 16:00 Dose: Not Given Lactobacillus Acidophilus (Lactobacillus) 1 cap PO BID [facility] Last Admin: 12/18/18 10:02 Dose: 1 cap Methylprednisolone (Medrol) 4 mg PO BID [facility] Last Admin: 12/18/18 10:02 Dose: 4 mg Metoprolol Tartrate (Lopressor) 25 mg PO BID [facility] Last Admin: 12/18/18 10:04 Dose: 25 mg Montelukast Sodium (Singulair) 10 mg PO HS [facility] Last Admin: 12/17/18 21:27 Dose: Not Given Multivitamins (Hexavitamin) 1 tab PO DAILY [facility] Last Admin: 12/18/18 10:03 Dose: 1 tab - Labs Labs: 12/18/18 07:59 12/18/18 07:59 PT 18.6 SECONDS (9.7-12.2) H 11/30/18 09:35 INR 1.7 11/30/18 09:35 APTT 40 SECONDS (21-34) H 11/30/18 09:35 - Constitutional Appears: Non-toxic - Head Exam Head Exam: ATRAUMATIC - Eye Exam Eye Exam: Normal appearance Pupil Exam: NORMAL ACCOMODATION - ENT Exam ENT Exam: Mucous Membranes Moist - Neck Exam Neck Exam: Full ROM - Respiratory Exam Respiratory Exam: Decreased Breath Sounds, Clear to Ausculation Bilateral, Rhonchi, Wheezes - Cardiovascular Exam Cardiovascular Exam: REGULAR RHYTHM - GI/Abdominal Exam GI & Abdominal Exam: Normal Bowel Sounds - Rectal Exam Rectal Exam: NORMAL INSPECTION - Exam Exam: NORMAL INSPECTION - Extremities Exam Extremities Exam: Normal Capillary Refill - Neurological Exam Neurological Exam: Alert, Awake, Oriented x3 - Psychiatric Exam Psychiatric exam: Normal Affect - Skin Skin Exam: Pallor Assessment and Plan - Assessment and Plan (Free Text) Assessment: ca lung with met copd hiv aneamia weekness Plan: rehab continu all med pt dnr dni
[2018-12-18 16:53] VITALS: BP 111/71; PULSE 98; RESP 22; TEMP 98; O2SAT 95
--- NOTE | 2018-12-18 23:49 | PN ---
DATE: 12/18/2018 LOCATION: Room 672, bed A. SUBJECTIVE: This 63-year-old male seen early in rounds today without significant clinical changes, without reported active bleeding, with PICC line in place and intact, somewhat tolerating oral intake. The entire chart is reviewed including but not limited to the most recent lab and radiology study results, current and the previous medication list, current and the previous medical events, and today's lab showed white blood cells of 25.4, hemoglobin 7.9, hematocrit 25 with low indices, thrombocytosis of 422 with CO2 content of 32, blood glucose level 249, calcium 8.5 with alkaline phosphatase 288 with low albumin of 3. PHYSICAL EXAMINATION: GENERAL: A 63-year-old male, afebrile with heart rate of 96, respiratory rate 20-22, blood pressure of 118/68. HEENT: Showed pale dry oral mucous membrane. Nonicteric sclerae. LUNGS: Few scattered crepitation. Decreased air entry at bases. HEART: Positive S1 and S2. ABDOMEN: Soft with mild generalized tenderness. No mass or organomegaly. No rebound tenderness or guarding. EXTREMITIES: Without clubbing, cyanosis, but edematous changes. NEUROLOGIC: No reported new neurological deficits. IMPRESSION: 1. Peptic ulcer disease. 2. Reported recent diagnosis of lung cancer. 3. Chronic obstructive pulmonary disease. 4. Pneumonia. 5. Anemia secondary to above. 6. Known history of human immunodeficiency virus. SUGGESTIONS: 1. Continue conservative medical treatment. 2. No further aggressive GI workup. 3. Antireflux measures. 4. Will sign off the case. The patient is to be followed up as outpatient by the primary MD. Sarai Reynolds MD
--- NOTE | 2018-12-19 23:39 | CP.PCM.PN ---
Subjective - Date & Time of Evaluation Date of Evaluation: 12/18/18 Time of Evaluation: 10:00 - Subjective Subjective: No complaints. Objective - Vital Signs/Intake and Output Vital Signs (last 24 hours): Temp Pulse Resp BP Pulse Ox 98 F 98 H 22 111/71 95 12/18/18 16:00 12/18/18 16:00 12/18/18 16:00 12/18/18 16:00 12/18/18 16:00 - Labs Labs: 12/18/18 07:59 12/18/18 07:59 PT 18.6 SECONDS (9.7-12.2) H 11/30/18 09:35 INR 1.7 11/30/18 09:35 APTT 40 SECONDS (21-34) H 11/30/18 09:35 - Head Exam Head Exam: ATRAUMATIC - Eye Exam Eye Exam: Normal appearance - ENT Exam ENT Exam: Mucous Membranes Dry - Respiratory Exam Respiratory Exam: Decreased Breath Sounds - Cardiovascular Exam Cardiovascular Exam: +S1, +S2 - GI/Abdominal Exam GI & Abdominal Exam: Normal Bowel Sounds Assessment and Plan (1) Leukocytosis Assessment & Plan: on antifungal, and steroids. 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
== END 2018-12-18 16:49 | DRG 166 ==
LOC: C.ER 08:51 → C.9E 11:01 → C.5S 12:48 → C.9I 12-05 12:51 → C.6T 12-09 10:33 → C.9I 12-09 10:46 → C.6T 12-12 12:40
PROVIDERS: ADMIT Internal Medicine; ATTEND Internal Medicine
PROC: 0BBC8ZX Excision of Right Upper Lung Lobe, Via Natural or Artificial Opening Endoscopic, Diagnostic (ICD-10-PCS; 2018-12-02)
PROC: 0BD48ZX Extraction of Right Upper Lobe Bronchus, Via Natural or Artificial Opening Endoscopic, Diagnostic (ICD-10-PCS; 2018-12-02)
PROC: 0B9C8ZX Drainage of Right Upper Lung Lobe, Via Natural or Artificial Opening Endoscopic, Diagnostic (ICD-10-PCS; principal; 2018-12-02 08:00)
DX: C34.10 Malignant neoplasm of upper lobe, unspecified bronchus or lung (principal); A41.9 Sepsis, unspecified organism; J18.9 Pneumonia, unspecified organism; J96.01 Acute respiratory failure with hypoxia; B20 Human immunodeficiency virus [HIV] disease; I13.0 Hypertensive heart and chronic kidney disease with heart failure and stage 1 through stage 4 chronic kidney disease, or unspecified chronic kidney disease; E87.4 Mixed disorder of acid-base balance; K92.2 Gastrointestinal hemorrhage, unspecified; N17.9 Acute kidney failure, unspecified; B37.49 Other urogenital candidiasis; C78.7 Secondary malignant neoplasm of liver and intrahepatic bile duct; K86.1 Other chronic pancreatitis; J43.9 Emphysema, unspecified; E86.0 Dehydration; B18.2 Chronic viral hepatitis C; D63.8 Anemia in other chronic diseases classified elsewhere; E11.22 Type 2 diabetes mellitus with diabetic chronic kidney disease; E11.40 Type 2 diabetes mellitus with diabetic neuropathy, unspecified; E11.65 Type 2 diabetes mellitus with hyperglycemia; I50.9 Heart failure, unspecified; K27.9 Peptic ulcer, site unspecified, unspecified as acute or chronic, without hemorrhage or perforation; N18.9 Chronic kidney disease, unspecified; G47.30 Sleep apnea, unspecified; E11.649 Type 2 diabetes mellitus with hypoglycemia without coma; F41.1 Generalized anxiety disorder; F11.11 Opioid abuse, in remission; D50.9 Iron deficiency anemia, unspecified; M17.0 Bilateral primary osteoarthritis of knee; E78.5 Hyperlipidemia, unspecified; E78.00 Pure hypercholesterolemia, unspecified; Z66 Do not resuscitate; Z51.5 Encounter for palliative care; Z99.81 Dependence on supplemental oxygen; Z87.891 Personal history of nicotine dependence; Z87.01 Personal history of pneumonia (recurrent); Z91.19 Patient's noncompliance with other medical treatment and regimen; Z74.01 Bed confinement status; Z79.899 Other long term (current) drug therapy; Z98.41 Cataract extraction status, right eye